=== PATIENT | female | born 1965 | race Caucasian/White ===

== ENCOUNTER 2021-12-24 08:40 | Outpatient (CLI) | payer OTHER, SELFPAY ==
[2021-12-24 14:24] LABS: Creatinine Urine 131.8 mg/dL
[2021-12-24 14:28] LABS: Microalbumin Creatinine Ratio 120 mg/g (0-30); Microalbumin Urine 17 mg/dL
[2021-12-24 14:32] LABS: Albumin* 4.4 g/dL (3.3-5.0)
[2021-12-24 14:33] LABS: Chloride* 105 mmol/L (96-114); Potassium* 4.6 mmol/L (3.6-5.1); Sodium* 140 mmol/L (135-149)
[2021-12-24 14:35] LABS: Alkaline Phosphatase* 69 U/L (40-150); Aspartate Amino Transferase* 27 U/L (12-35); Bilirubin Total* 0.2 mg/dL (0.1-1.5); Blood Urea Nitrogen* 18 mg/dL (7-30); Carbon Dioxide* 28 mmol/L (20-32); Creatinine* 0.6 mg/dL (0.5-1.5); Estimated Glomerular Filt Rate 105 ml/min; Glucose* 98 mg/dL (60-115); Lipase* 69 U/L (23-300); Total Protein* 7.1 g/dL (6.0-8.3)
[2021-12-24 14:36] LABS: Alanine Aminotransferase* 25 U/L (4-35); Calcium* 9.2 mg/dL (8.4-10.6); Cholesterol* 201 mg/dL (90-199); HDL Cholesterol* 50 mg/dL (>=50); LDL Cholesterol Calculated 127 mg/dL (<100); Triglycerides* 121 mg/dL (40-149)
[2021-12-24 15:18] LABS: Vitamin B12* 343 pg/mL (243-894)
[2021-12-24 17:04] LABS: TSH With Reflex to FT4* 0.248 uIU/mL (0.270-4.200)
[2021-12-25 23:11] LABS: Free T4 Free Thyroxine* 1.77 ng/dL (0.70-1.85)
== END 2021-12-24 08:41 | disposition home or self-care (01) ==
PROVIDERS: PCP Physician Assistant Medical; Visit Provider Physician Assistant Medical
DX: Z00.00 Encounter for general adult medical examination without abnormal findings (principal); R14.0 Abdominal distension (gaseous); E03.9 Hypothyroidism, unspecified; R73.03 Prediabetes; N93.9 Abnormal uterine and vaginal bleeding, unspecified
CPT/HCPCS: 80053; 80061; 82043; 82570; 82607; 83690; 84439; 84443; 87086; 87186

== ENCOUNTER 2021-12-29 08:00 | Outpatient (CLI) | payer OTHER, SELFPAY ==
--- NOTE | 2021-12-29 08:15 | CRLHL7_ITS ---
For Patients: As a result of the Century Cures Act, medical imaging exams and procedure reports are released immediately into your electronic medical record. You may view this report before your referring provider. If you have questions, please contact your health care provider. INDICATION: ABDOMINAL DISTENSION COMPARISON: none TECHNIQUE: Real time owens scale imaging and color Doppler analysis was performed of the right upper quadrant. FINDINGS: The patient`s liver is of normal size and has mildly coarsened echogenicity. There is a normal appearance of the hepatic IVC and proximal abdominal aorta. There is no evidence of ascites. The gallbladder is of normal size and there are hyperechoic and shadowing stones. The gallbladder wall measures 2 mm in thickness. The common bile duct is of normal size and measures 5 mm in diameter at the level of the angie hepatis. The pancreas appears normal. There is no evidence of a stone or hydronephrosis within the right kidney. The right kidney measures 11.2 cm in length. IMPRESSION: Gallstones are present. This is consistent with cholelithiasis. Mild hepatic steatosis. Remainder normal. Dictated by Sarthak Oliver MD @ 12/29/2021 8:42:54 AM (Electronically Signed)
== END 2021-12-29 08:01 | disposition home or self-care (01) ==
LOC: US 08:01
PROVIDERS: PCP Physician Assistant Medical; Visit Provider Physician Assistant Medical
DX: R14.0 Abdominal distension (gaseous) (principal); K80.80 Other cholelithiasis without obstruction; K76.0 Fatty (change of) liver, not elsewhere classified
CPT/HCPCS: 76705

== ENCOUNTER 2022-01-08 10:25 | Outpatient (CLI) | payer OTHER, SELFPAY | END 2022-01-08 10:26 | disposition home or self-care (01) | LOC: LKVREF 01-16 09:57 | PROVIDERS: PCP Physician Assistant Medical; Visit Provider Physician Assistant Medical | DX: R32 Unspecified urinary incontinence (principal) | CPT/HCPCS: 87086; 87186 ==

== ENCOUNTER 2022-01-20 15:30 | Outpatient (CLI) | payer OTHER, SELFPAY ==
--- NOTE | 2022-01-20 15:20 | CRLHL7_ITS ---
For Patients: As a result of the Century Cures Act, medical imaging exams and procedure reports are released immediately into your electronic medical record. You may view this report before your referring provider. If you have questions, please contact your health care provider. BILATERAL SCREENING MAMMOGRAM WITH COMPUTER-AIDED DETECTION AND TOMOSYNTHESIS TECHNIQUE: CC and MLO views were obtained. These mammographic images have been obtained using full-field digital technique. These mammographic images were interpreted with the benefit of computer-aided detection. Breast Tomosynthesis was used in this interpretation. COMPARISON FILM: 01/01/21, 12/20/19, 11/18/18. FINDINGS: There are scattered areas of fibroglandular density IMPRESSION: There is no radiographic evidence for malignancy. ASSESSMENT: BI-RADS Category 1: Negative RECOMMENDATION: Routine screening mammogram in 1 year. A lay language report of this examination will be provided to the patient. Sarthak Oliver M.D. Diagnostic Radiologist [email or web address] TERESA/Dictated by: Sarthak Oliver MD @ 01/21/2022 9:01:00 AM (Electronically Signed)
== END 2022-01-20 15:31 | disposition home or self-care (01) ==
PROVIDERS: PCP Physician Assistant Medical; Visit Provider Physician Assistant Medical
DX: Z12.31 Encounter for screening mammogram for malignant neoplasm of breast (principal)
CPT/HCPCS: 77063; 77067

== ENCOUNTER 2022-02-02 15:06 | Outpatient (CLI) | payer OTHER, SELFPAY | END 2022-02-02 15:07 | disposition home or self-care (01) | LOC: FRMREF 02-06 14:11 | PROVIDERS: PCP Physician Assistant Medical; Visit Provider Physician Assistant Medical | DX: N39.0 Urinary tract infection, site not specified (principal) | CPT/HCPCS: 87086; 87186 ==

== ENCOUNTER 2022-06-26 12:43 | Outpatient (CLI) | payer OTHER, SELFPAY | END 2022-06-26 12:44 | disposition home or self-care (01) | PROVIDERS: PCP Physician Assistant Medical; Visit Provider Physician Assistant Medical | DX: R30.0 Dysuria (principal); N39.0 Urinary tract infection, site not specified | CPT/HCPCS: 87086; 87186 ==

== ENCOUNTER 2022-10-20 09:49 | Emergency (ER) | payer OTHER, SELFPAY ==
[2022-10-20] VITALS (7 sets, daily range): BP systolic 123–134; BP diastolic 74–89; PULSE 85–109; RESP 16–24; TEMP 36.4; O2SAT 93–95; BMI 38.1
--- NOTE | 2022-10-20 10:15 | ED.NURSE ---
Pt O2 sats ~88% on RA. aware, 2L O2 NC placed on pt. Sats up to ~95% on 2L.
--- NOTE | 2022-10-20 10:21 | ED.FEVER ---
HPI - Fever General Date Seen: 10/20/22 Chief Complaint: Fever Stated Complaint: sore throat,cough,fever Time Seen by Provider: 10/20/22 09:53 Source: patient and family Mode of arrival: ambulatory Limitations: no limitations History of Present Illness HPI Narrative: Patient is a 57-year-old female who presents here for evaluation of a fever, they took at home approximately an hour and a half ago and got 101, done orally. She did take then 400 mg of ibuprofen, was trying to get into both urgent care yesterday, and the [facility] today, was unable to be seen. Decided at that point to come to the emergency room. She has been sick for approximately 1 week with the facial discomfort, nasal discharge sore throat the comes and goes during this time. She is able to swallow, no rashes, no real cough, does have a history of immunosuppression on drugs for this after she had corneal transplant in her right eye. Does have a history of both UTIs and also sinus infections. Generally feels crappy, but was going to go to see the [email or web address] is a movie today. Associated symptoms: myalgias, rhinorrhea, nasal congestion and sore throat Treatments prior to arrival fever: ibuprofen Related Data Home Medications Medication Instructions Recorded Confirmed omega-3 fatty acids 1,000 mg 1,000 mg PO QDAY 12/24/21 07/27/22 capsule prednisolone acetate 1 % eye 1 drp ophthalmic (eye) QID 12/24/21 07/27/22 drops,suspension gabapentin 300 mg capsule 300 mg PO QDAY 06/26/22 07/27/22 Meloxicam PO PRN 07/27/22 Multiple vitamin PO DAILY 07/27/22 latanoprost 0.005 % eye drops 1 drp ophthalmic (eye) BID 07/27/22 07/27/22 mycophenolate mofetil 500 mg tablet 500 mg PO BID 07/27/22 07/27/22 sodium chloride 5 % eye drops drp ophthalmic (eye) .6 x daily 07/27/22 07/27/22 tacrolimus 0.03 % topical ointment 1 applic topical DAILY 07/27/22 07/27/22 tacrolimus 0.1 % topical ointment 1 applic topical QHS 07/27/22 07/27/22 ubidecarenone-omega 3-vit E 25 1 cap PO DAILY 07/27/22 07/27/22 mg-150 (90-60) mg-200 unit capsule Previous Rx's Medication Instructions Recorded metformin 500 mg tablet,extended See Rx Instructions .Route 03/04/22 release 24 hr .COMPLEX #360 tabs levothyroxine 125 mcg tablet 125 mcg PO DAILY #90 tabs 05/12/22 benzonatate 100 mg capsule 100 mg PO QHS PRN cough #30 caps 07/27/22 amoxicillin 875 mg-potassium 1 tab PO BID #20 tabs 10/20/22 clavulanate 125 mg tablet Allergies Allergy/AdvReac Type Severity Reaction Status Date / Time No Known Drug Allergies Allergy Verified 07/27/22 10:52 Review of Systems Status of ROS Reports: 10 or more systems reviewed and unremarkable except as noted in History and below [facility] Medical History Dehydration ?E86.0 - Dehydration (ICD-10) Surgical History History of cornea transplant ?Z94.7 - Corneal transplant status (ICD-10) Family History Mother Arthritis Maternal Grandmother Colon cancer Family/Other Coronary artery disease Social History Narrative: Non-smoker. with adult children. Rare alcohol use. Denies recreational drug use. 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 Smoking Status: Never smoker Do you use any of these nicotine containing products: None Second hand tobacco smoke exposure: No How often do you have a drink containing alcohol: never How often do you have six or more drinks on one occasion: Never AUDIT-C Alcohol total score: 0 Non-prescribed substance use: denies use Little interest or pleasure in doing things: not at all Feeling down, depressed, or hopeless: not at all service: No Exam Narrative Exam Narrative: Patient is in no apparent distress, seen in room 6, alopecia is noted. Pupils are equal round reactive to light her TMs bilaterally are approximately 50% occluded with soft brown cerumen but otherwise normal, nasal mucosa engorged bilaterally, her frontal sinuses, maxillary sinuses transilluminate. Oropharynx is a little bit reddened but there is no tonsillar swelling or exudate noted. There is no significant lymphadenopathy anterior posterior chains, of her cervical region. Her neck is supple absence of meningismus is noted. Chest is good air entry bilaterally with no wheezing crackles noted heart sounds no clicks murmurs or gallops, her abdomen is soft, obese, no tenderness to palpation, no organomegaly, no CVA tenderness, she moves all extremities independently well is neurologically intact. Const Vital Signs, click to edit/add: Vital Signs - 24 hr 10/20/22 09:59 10/20/22 10:09 10/20/22 10:36 Temperature 97.5 F L 97.5 F L Pulse Rate Pulse Rate [Pulse Oximeter] 109 H Respiratory Rate 24 Blood Pressure Blood Pressure [Right Upper Arm] 134/89 Pulse Oximetry 93 94 Oxygen Delivery Method Room Air Room Air 10/20/22 10:39 10/20/22 10:41 10/20/22 10:41 Temperature Pulse Rate 98 Pulse Rate [Pulse Oximeter] 85 Respiratory Rate 16 Blood Pressure 123/74 Blood Pressure [Right Upper Arm] 124/82 123/74 Pulse Oximetry 95 95 Oxygen Delivery Method Room Air 10/20/22 10:42 10/20/22 10:45 Temperature Pulse Rate 102 H 99 Pulse Rate [Pulse Oximeter] Respiratory Rate Blood Pressure Blood Pressure [Right Upper Arm] Pulse Oximetry 95 93 Oxygen Delivery Method Course Course Hospital Course: All swabs and strep were negative, at this point we will discharge her home, clinically she has sinusitis, and Augmentin would be a great agent as it has good coverage. I have asked her to watch and monitor herself closely, including use of Tylenol ibuprofen. And to follow-up if any signs or symptoms of worsening. Vital Signs Vital signs: Initial Vital Signs Temperature 97.5 F L 10/20/22 09:59 Temperature Source Temporal Artery Scan 10/20/22 09:59 Pulse Rate 109 H 10/20/22 09:59 Pulse Rhythm Regular 10/20/22 09:59 Respiratory Rate 24 10/20/22 09:59 Blood Pressure 134/89 10/20/22 09:59 Blood Pressure Mean 104 10/20/22 09:59 Blood Pressure Position Supine 10/20/22 09:59 Pulse Oximetry 93 10/20/22 09:59 Oxygen Delivery Method Room Air 10/20/22 09:59 Vital Signs Temperature 97.5 F L 10/20/22 09:59 Pulse Rate 109 H 10/20/22 09:59 Respiratory Rate 24 10/20/22 09:59 Blood Pressure 134/89 10/20/22 09:59 Pulse Oximetry 93 10/20/22 09:59 Oxygen Delivery Method Room Air 10/20/22 09:59 Temperature 97.5 F L 10/20/22 10:36 Pulse Rate 99 10/20/22 10:45 Respiratory Rate 16 10/20/22 10:39 Blood Pressure 123/74 10/20/22 10:41 Pulse Oximetry 93 10/20/22 10:45 Oxygen Delivery Method Room Air 10/20/22 10:39 MDM - Fever MDM Narrative Medical decision making narrative: Life-threatening differential diagnosis is include meningitis, encephalitis, pneumonia, intra-abdominal infection, bacteremia, other differential diagnosis include but are not limited to viral upper respiratory tract infection, strep, urinary tract infection, skin infection, osteomyelitis, influenza, fungal infections, diskitis, epidural abscess, or fever of unknown origin. I discussed with her that I believe that she likely has sinusitis, but given her immunosuppressive history we will do a strep and along with the triple viral screen. Will give her some Tylenol, she seems nontoxic, I do believe we have the element of time here. Medical Records Attestation: I reviewed the patient's medical records. Lab Data Attestation: I reviewed the patient's lab results. Labs: Lab Results 10/20/22 Range/Units 10:33 SARS-CoV-2 (PCR) Negative SARS-CoV-2 (Negative) Influenza Type A (PCR) Negative PCR FLU A (Negative) Influenza Type B (PCR) Negative PCR FLU B (Negative) RSV (PCR) Negative PCR RSV (Negative) Group A Strep DNA NOT DETECTED (Not Detectd) Discharge Plan Discharge Clinical Impression: Fever, Sinusitis Patient Disposition: Home w/ Parent or Adult Condition: Stable Instructions: Fever in Adults (ED), Rhinosinusitis (DC) Additional Instructions: Home rest antibiotics as directed, monitor your fever, Tylenol ibuprofen as needed for this. Return here if any worsening signs and symptoms such as severe headache, neck pain, nausea vomiting, rashes, take antibiotics as directed. Activity Level: No Restrictions Prescriptions: New amoxicillin-pot clavulanate 875-125 mg tablet 1 tab PO BID Qty: 20 0RF No Action prednisolone acetate 1 % drops,suspension 1 drp ophthalmic (eye) QID omega-3 fatty acids 1,000 mg capsule 1,000 mg PO QDAY Meloxicam PO PRN Patient Comments: Patient is unsure of the doseage. Multiple vitamin PO DAILY mycophenolate mofetil 500 mg tablet 500 mg PO BID tacrolimus 0.03 % ointment 1 applic topical DAILY Rx Instructions: to use as directed in right eye tacrolimus 0.1 % ointment 1 applic topical QHS Rx Instructions: right eye ubidecarenone-omega 3-vit E 25-150-200 mg-mg-unit capsule 1 cap PO DAILY latanoprost 0.005 % drops 1 drp ophthalmic (eye) BID sodium chloride 5 % drops ophthalmic (eye) .6 x daily Patient Comments: [NO ORIGINAL SIG] benzonatate 100 mg capsule 100 mg PO QHS PRN (Reason: cough) Qty: 30 0RF gabapentin 300 mg capsule 300 mg PO QDAY Patient Comments: TAKE 1 CAPSULE BY MOUTH AT BEDTIME metformin 500 mg tablet extended release 24 hr See Rx Instructions .ROUTE .COMPLEX Qty: 360 3RF Dose Instruction: TAKE 4 TABLETS DAILY Rx Instructions: TAKE 4 TABLETS DAILY levothyroxine 125 mcg tablet 125 mcg PO DAILY Qty: 90 1RF Follow Up/Referrals: Martina Strickland PA-C [Primary Care Provider] - Stand Alone Forms: [facility] Info Instructions
[2022-10-20] MEDS: ACETAMINOPHEN 500 MG TABLET 1000 MG PO (10:28)
--- OUTSIDE RECORDS SUMMARY | 2022-10-20 10:33 | XMS_ITS | Continuity of Care Document ---
Author Name Unknown Organization [facility] Address [address] [facility] [address] [place] [address] Phone Care Team Providers Care Medical Administrative Technician Name Role Phone Joseph Trivedi DO Unavailable Unavailable Allergies, Adverse Reactions, Alerts Substance [...] [facility] , [address], [place], [address], [place] tel:[phone] [facility] , Corneal transplant monitor Chronic High Risk Meds (chief complaint) Unspecified complication of corneal transplant, right eyeUnspecifi ed pterygium of right eyeUnspecifi ed complication of corneal transplantOt her senior living (current) drug therapy 1 Farooq Ruiz. [facility] [address], [place], [address], [place]. tel:[phone] Referring Provider: Joseph Martin, [facility] [address], [place], [address]. tel:[phone] Office/Outpa tient Visit, Est [facility] , [address], [place], [address], [place] tel:[phone] [facility] , Corneal transplant monitor Chronic High Risk Meds (chief complaint) Unspecified pterygium of right eyeUnspecifi ed complication of corneal transplantOt her terminal operations manager (current) drug therapyUnspe cified complication of corneal transplant, right eye 1 Farooq Ruiz. [facility] [address], [place], [address], [place]. tel:[phone] Referring Provider: Joseph Martin, [facility] [address], [place], [address]. tel:[phone] Office/Outpa tient Visit, Est [facility] , [address], [place], [address], [place] tel:[phone] [facility] , Unspecified pterygium of right eyeUnspecifi ed complication of corneal transplantOt her terminal operations manager (current) drug therapy 0 Farooq Ruiz. [facility] [address], [place], [address], [place]. tel:[phone] Referring Provider: Joseph Martin, [facility] [address], [place], [address]. tel:[phone] Office/Outpa tient Visit, Est [facility] , [address], [place], [address], [place] tel:[phone] [facility] , Unspecified pterygium of right eyeUnspecifi ed complication of corneal transplantOt her senior living (current) drug therapy 0 Farooq Ruiz. [facility] [address], [place], [address], [place]. tel:[phone] Specialist: Amadeo King, [facility] [address] [place] [address] [address], [place], [address]. tel:[phone] ng Provider: Joseph Martin, [facility] [address], [place], [address]. tel:[phone] Office/Outpa tient Visit, Est [facility] , [address], [place], [address], [place] tel:[phone] [facility] , Unspecified pterygium of right eyeUnspecifi ed complication of corneal transplantOt her senior living (current) drug therapy 9 Farooq Ruiz. [facility] [address], [place], [address], [place]. tel:[phone] Specialist: Amadeo King, [facility] [address] [facility], [place], [address]. tel:[phone] ng Provider: Joseph Martin, [facility] [address], [place], [address]. tel:[phone] Office/Outpa tient Visit, New [facility] , [address], [place], [address], [place] tel:[phone] [facility] , Unspecified complication of corneal transplantUn specified pterygium of right eyeOther senior living (current) drug therapy 9 Farooq Ruiz. [facility] [address], [place], [address], [place]. tel:[phone] Referring Provider: Joseph Martin, [facility] [address], [place], [address]. tel:[phone] Family History Family Member Type Diagnosis Age At Onset Mother Problem (finding) [facility] Immunizations Vaccine Date Status Comments COVID-19 Pfizer administered Source: Otdean r Provider COVID-19 Pfizer administered Source: Othe r Provider Payers Payer name Insurance type Covered libertarian ID Authoriza tion(s) Cigna CI [id number] Social History Type Description Quantity Date Captured [...] For Referral Reason For Referral No Information Plan Of Treatment Date Type Action Status No Information History Of Present Illness Encounter [...] complication of corn eal transplant assessment 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 Patient Care Teams Name Effective Dates (start - stop) Status Members No Information
[2022-10-20 11:20] LABS: Strep A DNA Probe* NOT DETECTED (Not Detectd)
[2022-10-20 11:28] LABS: PCR FLU A Negative PCR FLU A (Negative); PCR FLU B Negative PCR FLU B (Negative); PCR RSV Negative PCR RSV (Negative)
[2022-10-20 11:51] LABS: SARS PCR* Negative SARS-CoV-2 (Negative)
== END 2022-10-20 12:03 | disposition home or self-care (01) ==
PROVIDERS: Emergency Provider Family Medicine; PCP Physician Assistant Medical
DX: R50.9 Fever, unspecified (principal); J32.9 Chronic sinusitis, unspecified
CPT/HCPCS: 87631; 87651; 99283; A9270

== ENCOUNTER 2022-12-04 09:12 | Outpatient (CLI) | payer OTHER, SELFPAY ==
--- OUTSIDE RECORDS SUMMARY | 2022-12-04 09:15 | XMS_ITS | Continuity of Care Document ---
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 [facility] [address], [place], [address], [place]. tel:[phone] Referring Provider: Joseph Martin, [facility] [address], [place], [address]. tel:[phone] Office/Outpa tient Visit, Est [facility] , [address], [place], [address], [place] tel:[phone] [facility] , Corneal transplant monitor Chronic High Risk Meds (chief complaint) Unspecified pterygium of right eyeUnspecifi ed complication of corneal transplantOt her terminal operator (current) drug therapyUnspe cified complication of corneal transplant, right eye 1 Farooq Ruiz. [facility] [address], [place], [address], [place]. tel:[phone] Referring Provider: Joseph Martin, [facility] [address], [place], [address]. tel:[phone] Office/Outpa tient Visit, Est [facility] , [address], [place], [address], [place] tel:[phone] [facility] , Unspecified pterygium of right eyeUnspecifi ed complication of corneal transplantOt her terminal operator (current) drug therapy 0 Farooq Ruiz. [facility] [address], [place], [address], [place]. tel:[phone] Referring Provider: Joseph Martin, [facility] [address], [place], [address]. tel:[phone] Office/Outpa tient Visit, Est [facility] , [address], [place], [address], [place] tel:[phone] [facility] , Unspecified pterygium of right eyeUnspecifi ed complication of corneal transplantOt her intermediate (current) drug therapy 0 Farooq Ruiz. [facility] [address], [place], [address], [place]. tel:[phone] Specialist: Amadeo King, [facility] [address] [place] [address] [address], [place], [address]. tel:[phone] ng Provider: Joseph Martin, [facility] [address], [place], [address]. tel:[phone] Office/Outpa tient Visit, Est [facility] , [address], [place], [address], [place] tel:[phone] [facility] , Unspecified pterygium of right eyeUnspecifi ed complication of corneal transplantOt her intermediate (current) drug therapy 9 Farooq Ruiz. [facility] [address], [place], [address], [place]. tel:[phone] Specialist: Amadeo King, [facility] [address] [facility] [address], [place], [address]. tel:[phone] ng Provider: Joseph Martin, [facility] [address], [place], [address]. tel:[phone] Office/Outpa tient Visit, New [facility] , [address], [place], [address], [place] tel:[phone] [facility] , Unspecified complication of corneal transplantUn specified pterygium of right eyeOther intermediate (current) drug therapy 9 Farooq Ruiz. [facility] [address], [place], [address], [place]. tel:[phone] Referring Provider: Joseph Martin, [facility] [address], [place], [address]. tel:[phone] Family History Family Member Type Diagnosis Age At Onset Mother Problem (finding) Arthritis Immunizations Vaccine Date Status Comments COVID-19 Pfizer administered Source: Otdean r Provider COVID-19 Pfizer administered Source: Othe r Provider Payers Payer name Insurance type Covered alliance party ID Authoriza tion(s) Cign[employer] CI [id number] Social History Type Description Quantity Date Captured [...] complication of corn eal transplant assessment Other intermediate (current) drug t herapy Mental Status Date Cognitive Assessment Orientation - [place] ed to time, place, person, situation. Patient Care Teams Name Effective Dates (start - stop) Status Members No Information
== END 2022-12-04 09:13 | disposition home or self-care (01) ==
PROVIDERS: PCP Physician Assistant Medical; Visit Provider Physician Assistant Medical
DX: Z00.00 Encounter for general adult medical examination without abnormal findings (principal); L03.90 Cellulitis, unspecified; E86.0 Dehydration; R73.03 Prediabetes; N39.0 Urinary tract infection, site not specified; Z13.6 Encounter for screening for cardiovascular disorders
CPT/HCPCS: 80053; 80061; 82043; 82570; 84443; 87086; 87186

== ENCOUNTER 2023-09-14 22:06 | Outpatient (REF) | payer OTHER, SELFPAY ==
--- OUTSIDE RECORDS SUMMARY | 2023-09-14 22:11 | XMS_ITS | Clinical Summary ---
Author Name Unknown Organization [facility] Address [place], [place] [address] Care Team Providers Care Hot Header Operator Name Role Phone Martina Strickland PA-C Primary Care Provider [phone] Allergies Active Allergy Reactions Criticality Noted Date Comments Lidocaine Other - Describe In Comment Field 06/29/2017 Received Lido with epi at dentist office,states being shaky was from epi. Medications Medication Sig Dispensed Refills Start Date End Date Status levothyroxine (SYNTHROID) 112 mcg tablet Take 112 mcg by mouth once daily. 3 06/14/2017 Active metFORMIN (GLUCOPHAGE XR) 500 mg Extended-Release tablet Take 1,000 mg by mouth 2 times daily with meals. Active medication order composer [place] oil 1000 mg daily Active UBIDECARENONE (COQ-10 ORAL) Take 10 mg by mouth once daily. Active MULTIVITAMIN (MULTIPLE VITAMINS ORAL) Take 1 tablet by mouth once daily. Active fluconazole (DIFLUCAN) 150 mg tablet Take 150 mg by mouth once daily. 0 04/04/2018 Active netarsudil (RHOPRESSA) 0.02 % drop Place 1 Drop into right eye at bedtime. 08/26/2018 Active prednisoLONE acetate 1% ophthalmic (ECONOPRED PLUS, PRED FORTE, OMNIPRED) suspension Place 1 Drop into the eye(s) 4 times daily. 5 mL 09/30/2018 Active Additional Information Patient taking differently:1 DropRight EyeQID, Reported on 04/17/2019 dorzolamide-timolo l (COSOPT) 2-0.5 % ophthalmic solution Place 1 Drop into the eye(s). 10/25/2018 Active sodium chloride (ADSORBONAC) 2 % ophthalmic solution Place 1-2 Drops into the eye(s). 01/07/2019 Active omega-3 fatty acids (FISH OIL CONCENTRATE) cap Take 1,000 mg by mouth once daily. Active tacrolimus 0.03% (PROTOPIC) 0.03 % ointment Place 1 Drop into right eye at bedtime. Active mycophenolate (CELLCEPT) 250 mg capsule Take 4 capsules by mouth every 12 hours. 240 capsule 04/18/2019 Active trimethoprim-sulfa methoxazole, 80-400 mg, (BACTRIM SS; SEPTRA SS) tab Take 1 tablet by mouth once daily. 30 tablet 04/18/2019 Active omeprazole (PRILOSEC) 20 mg Delayed-Release capsule Take 1 capsule by mouth once daily before a meal. 30 capsule 1 04/18/2019 Active predniSONE (DELTASONE) 20 mg tablet Take 3 tablets by mouth once daily with a meal. 90 tablet 1 04/18/2019 Active tacrolimus (PROGRAF) 1 mg capsule Take 1 capsule by mouth once daily in the evening. 30 capsule 1 04/18/2019 Active ofloxacin 0.3 % ophthalmic (OCUFLOX) 0.3 % ophthalmic solution Place 1 Drop in surgical eye 4 times daily. 5 mL 04/18/2019 Active valGANciclovir (VALCYTE) 450 mg tablet Take 1 tablet by mouth once daily with a meal. 30 tablet 1 04/18/2019 Active CYCLOSPORINE 1% IN ARTIFICAL TEARS ([facility] AMB MIX) Place 1 Drop into right eye 4 times daily. Refrigerate. Expires: . 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 Temperature 35.7 ??C (96.3 ??F) 04/18/2019 12:[address] Respiratory Rate 16 04/18/2019 2:56 PM 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 Oxygen Saturation 94% 04/18/2019 2:56 PM 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 Inhaled Oxygen Concentration - - Weight 110.8 kg (244 lb 3 oz) 04/17/2019 12:09 P M 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 Height 161 cm (5' 3.39) 04/17/2019 12:09 PM 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 Body Mass Index 42.73 04/17/2019 12:09 PM 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 Plan of Treatment Health Maintenance Due Date Last Done Comments Tdap 1976 Depression screening for age 12+ 1977 HIV for age 15-65 1980 BMI (ht and wt on same day) for age 18+ 07/22/1983 Hepatitis C screening for age 18-79 07/22/1983 Tetanus booster 1985 Colonoscopy through age 75 2010 Lipids for age 45-75 2010 Mammogram for age 45-75 2010 Zoster (shingles) series for age 50+ (1 of 2) 07/22/2015 COVID-19 vaccine series (2022-24 season) 2023 Pap test for age 21-65 11/09/2023 , 11/08/2020, 11/26/2017, Additional history exists Influenza for age 50-64 01/09/2024 Pneumococcal series for age 6-64 Aged Out No longer eligible based on patient's age to complete this topic Medical Devices Implanted Type Area Cartridge Loading Operator Device Identifier Shelf Expiration Date Model / Serial / Lot Cornea Ak Licarolyn Eye - [id number] Implanted:Qty: 1 on 07/05/2017 by Ronni Horton MD at [facility] Right: Eye [facility] Eye Bank 07/09/2017 CORNEA#18- [id number]-OD-C / [id number] -C / Allograft 3.5x3.5cm F Amniograft - [id number] Implanted:Qty: 1 on 07/05/2017 by Rogelio Galvan MD at [facility] Right: Eye [employer] 02/02/2019 [id number]# / [id number] / Description:[id number] SERIAL NUMBER Plate Glaucoma Valve Flex Ahmed Silcn - [id number] Implanted:Qty: 1 on 09/30/2018 by Claudia Marcus MD at [facility] Right: Eye [employer] 08/14/2020 FP7# / [id number] / [id number] Cornea 9.0mm+ Visiongraft W/O Scleral Rim Half - [id number] Implanted:Qty: 1 on 09/30/2018 by Claudia Marucs MD at [facility] Right: Eye [employer] 08/31/2020 FP661BT-20 # / [id number] / Description:DIN: [id number] FIN (P): [id number] Cornea [place] [facility] Eye - [id number] Os-C Implanted:Qty: 1 on 04/18/2019 by Amadeo King MD at [facility] Right: Eye [facility] Eye Bank 04/26/2019 CORNEA# / OS-C / Cornea [place] [facility] Eye - [id number] Od-C Implanted:Qty: 1 on 04/18/2019 by Amadeo King MD at [facility] Right: Eye [facility] Eye Bank 04/26/2019 CORNEA# / OD-C / Iol [place] +21 Tecnis [id number] - [id number] Implanted:Qty: 1 on 04/18/2019 by Amadeo King MD at [facility] Right: Eye [employer] 01/26/2024 [id number] 21.0# / [id number] / Allograft 3.5x3.5cm F Amniograft - [id number] Implanted:Qty: 1 on 04/18/2019 by Amadeo King MD at [facility] Right: Eye [employer] 11/07/2020 [id number]# / [id number] / Procedures Procedure Name Priority Date/Time Associated Diagnosis Comments COUNTY ADVISER THIN PREP PAP SCREEN IMAGED Routine 11/08/2020 1:30 PM CDT from Last 3 Months or Most Recently Relevant to Health Maintenance Results * COUNTY ADVISER THIN PREP PAP SCREEN IMAGED (11/08/2020 1:30 PM CDT) Case Report Gynecologic Cytology Report ? Case: [id number] ? Authorizing Provider: ??Martina Strickland PA-C ?Collected: ? 11/08/2020 1330 ? Ordering Location: ? [facility] ?Received: ?11/11/2020 1612 ? First Screen: ?Isabella Garcia ? Specimen: ?COUNTY ADVISER ThinPrep Vial Screening, Cervical/Vaginal ? 11/21/2020 6:20 PM CDT [facility] [employer] [facility] INTERPRETATION/ RESULT NEGATIVE FOR INTRAEPITHELIAL LESION OR MALIGNANCY (NIL) (none) 11/21/2020 6:20 PM CDT [facility] IMEN ADEQUACY Satisfactory for evaluation Endocervical component present 11/21/2020 6:20 PM CDT [facility] [employer] LABORAT[facility] ENTRAL LABORATORY HPV REQUEST HPV and PAP 11/21/2020 6:20 PM CDT [facility] Date of LMP 11/21/2020 6:20 PM CDT [facility] Comment:unknown Last Pap Date 11/26/2017 11/21/2020 6:20 PM CDT [facility] Last Pap Result NIL 6:20 PM CDT [facility] Additional Information 11/21/2020 6:20 PM CDT [facility] Comment: Interpreted at [facility] - [address], [place] [address] Automated Review Successful 11/21/2020 6:20 PM CDT [facility] Comment:Specimen processed s uccessfully by automated hospice community liaison device, AnchantoPrep Imaging System, [employer] ANCILLARY TESTING COUNTY ADVISER HPV Ordered, Please see separate report 11/21/2020 6:20 PM CDT [facility] Note The pap test is a screening technique, not a diagnostic procedure. It is used primarily to screen for squamous cancers and precursor lesions. Published studies have shown that it is subject to both false negative and false positive results. The pap test should not be used as the sole means to diagnose or exclude pre-malignant and malignant lesions. 11/21/2020 6:20 PM CDT [facility] Other (Cervical/Vagina l) 11/08/2020 1:30 PM CDT 11/11/2020 4:12 PM CDT Martina Strickland PA-C PATHOLOGY/CYTOLOGY [facility] [address] [place] [address], [place] from Last 3 Months or Most Recently Relevant to Health Maintenance Advance Directives * Full Code (Latest Code Status on File) Date Activated Date Inactivated Comments 04/18/2019 6:35 AM 04/18/2019 5:30 PM * Full Code Date Activated Date Inactivated Comments 09/30/2018 11:19 AM 10/05/2018 2:28 AM * Full Code Date Activated Date Inactivated Comments 09/30/2018 11:19 AM 09/30/2018 11:19 AM * Full Code Date Activated Date Inactivated Comments 07/05/2017 6:36 AM 07/05/2017 3:03 PM Care Teams Hot Header Operator Relationship Specialty Start Date End Date Martina Strickland PA-C [address] [place] [address] PCP - General Emergency Medicine 04/17/19
--- OUTSIDE RECORDS SUMMARY | 2023-09-14 22:11 | XMS_ITS | Referral Summary ---
Author Name Unknown Organization [facility] Address [address] [place] [address] Care Team Providers Care Education Analyst Name Role Phone Ailin Zavala MD Unavailable [phone] Martina Strickland PA-C Primary Care Provider Amadeo King MD Unavailable [phone] Joseph Trivedi MD Unavailable [phone] Rene Grant MD Unavailable [phone] Encounters Date Type Department Care Team Description 09/14/[address] [phone] Amadeo King MD Call Back 09/09/2023 MyC Medical Advice [address] [phone] [facility] 09/07/[address] [phone] Amadeo King MD Appointment (2-3 week follow up) 08/30/2023 Travel 08/30/2023 2:45 PM CDT Office Visit [address] [place] [address] Amadeo King MD Corneal ulcer of right eye (Primary Dx); 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; Post corneal transplant 08/23/2023 Travel 08/23/2023 3:00 PM CDT Office Visit [address] [phone] Rene Grant MD Hou, Joshua Honghan, MD Corneal ulcer of right eye (Primary Dx); 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; Persistent epithelial defect of right cornea; 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 08/22/2023 Travel 08/09/2023 Travel 08/09/2023 3:00 PM CDT Office Visit [address] [phone] Rene Grant MD Corneal ulcer of right eye (Primary Dx); 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 07/26/2023 Travel 07/26/2023 2:45 PM CDT Office Visit [address] [phone] Rene Grant MD Corneal ulcer of right eye (Primary Dx); 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; Dry eye syndrome of both eyes 2023 Travel 2023 3:00 PM CDT Office Visit [address] [phone] Rene Grant MD Corneal ulcer of right eye (Primary Dx); Persistent epithelial defect of right cornea; 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; Dry eye syndrome of both eyes 07/16/[address] [phone] Rene Grant MD Question (Ointment) 07/14/2023 Travel 07/14/2023 2:45 PM LEADING FIREFIGHTER Office Visit [address] [phone] Rene Grant MD Corneal ulcer of right eye (Primary Dx); Persistent epithelial defect of right cornea 07/10/[address] [phone] Amadeo Winston MD Medication Refill 07/09/2023 Travel 07/09/2023 3:00 PM LEADING FIREFIGHTER Office Visit [address] [phone] Rene Grant MD Corneal ulcer of right eye (Primary Dx); History of corneal transplant - Right Eye; 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 - [place] [phone] [facility] [address] [place] [phone] Rene Grant MD Symptoms (White spot on right cornea) from Last 3 Months Allergies Active Allergy Reactions Criticality Noted Date Comments Lidocaine Other (See Comments) 07/22/2011 can Other reaction(s): Get the [employer] Medications Medication Sig Dispensed Refills Start Date End Date Status metFORMIN (GLUCOPHAGE-XR) 500 MG 24 hr tablet Take 1,000 mg by mouth 2 times daily Active levothyroxine (SYNTHROID/LEVOTH ROID) 125 MCG tablet Take 125 mcg by mouth daily Active sodium chloride (RENA 128) 5 % ophthalmic solutionIndicatio ns: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,Post corneal transplant,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,[place]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, right eye Place 1 drop into the right eye every 2 hours 30 mL 4 10/22/2021 Active Additional Information Patient taking differently:1 drop Right Eye4 TIMES DAILY, Reported on 12/01/2022 meloxicam (MOBIC) 15 MG tablet Take 15 mg by mouth daily 12/16/2021 Active latanoprost (XALATAN) 0.005 % ophthalmic solutionIndicatio ns:Post corneal transplant Place 1 drop into the right eye At Bedtime 2.5 mL 11 12/02/2022 Active prednisoLONE acetate (PRED FORTE) 1 % ophthalmic suspensionIndicat ions:Post corneal transplant Place 1-2 drops into the right eye 4 times daily 15 mL 12/02/2022 Active prednisoLONE acetate (PRED FORTE) 1 % ophthalmic suspensionIndicat ions:Post corneal transplant,Cornea l transplant rejection, right eye Place 1-2 drops into the right eye 4 times daily 15 mL 11 02/19/2023 Active mycophenolate (GENERIC EQUIVALENT) 500 MG tabletIndications :History of corneal transplant,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 Take 1 tablet (500 mg) by mouth 2 times daily 180 tablet 06/04/2023 Active mycophenolate (GENERIC EQUIVALENT) 500 MG tabletIndications :Corneal ulcer of right eye,History of corneal transplant Take 1 tablet (500 mg) by mouth 2 times daily for 180 days 180 tablet 1 07/05/2023 01/01/20 24 Active latanoprost (XALATAN) 0.005 % ophthalmic solutionIndicatio ns: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 INSTILL 1 DROP IN RIGHT EYE DAILY 2.5 mL 2 07/16/2023 Active moxifloxacin (VIGAMOX) 0.5 % ophthalmic solutionIndicatio ns:Corneal ulcer of right eye Place 1 drop into the right eye 2 times daily 3 mL 11 08/23/2023 Active sodium chloride (RENA 128) 5 % ophthalmic ointmentIndicatio ns:Post corneal transplant Place 1 Application (0.5 g) into the right eye daily 3.5 g 11 12/02/2022 08/23/19 24 Discontinued( Therapy completed (No AVS)) vancomycin (VANCOCIN) 25 mg/mL in hypromellose 0.3% cmpd ophthalmic solutionIndicatio ns:Central corneal ulcer of right eye Place 1 drop into the right eye every hour 10 mL 3 06/30/2023 08/23/19 24 Discontinued( Therapy completed (No AVS)) moxifloxacin (VIGAMOX) 0.5 % ophthalmic solutionIndicatio ns:Corneal ulcer of right eye Place 1 drop into the right eye 3 times daily 3 mL 11 07/26/2023 08/23/19 24 Discontinued( Reorder (No AVS)) Active Problems Problem Noted Date Diagnosed Date Post corneal transplant 06/12/2020 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 021 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 2018 Pseudophakia of right eye 09/28/2018 CARDIOVASCULAR SCREENING; LDL GOAL LESS THAN 160 07/28/2011 Hypothyroidism 07/28/2011 Social History Tobacco Use Types Packs/Day Years Used Date Smoking Tobacco: Never Smokeless Tobacco: Never Alcohol Use Standard Drinks/Week Comments No 0 (1 standard drink = 0.6 oz pur e alcohol) PHQ-2 Answer Date Recorded PHQ-2 Score 0 08/30/2023 Adolescent Education Answer Date Record ed Getting School Help Needed Not on file 02/05 Sex and Gender Information Value Date Recorded Sex Assigned at Female 2019 10:10 AM CDT Gender Identity Female 2019 10:10 AM CDT Sexual Orientation Straight 2019 10 :10 AM CDT Last Filed Vital Signs Vital Sign Reading Time Taken Comments Blood Pressure 112/66 07/27/2011 8:47 AM CDT Pulse 68 07/27/2011 8:47 AM CDT Temperature 36.9 ??C (98.4 ??F) 07/27/2011 8:47 AM CD T Respiratory Rate 17 07/22/2011 7:41 AM CDT Oxygen Saturation 100% 07/22/2011 9:20 AM CDT Inhaled Oxygen Concentration - - Weight 104.8 kg (231 lb 1.6 oz) 07/27/2011 8:47 AM CDT Height 160 cm (5' 3) 07/27/2011 8:47 AM CDT Body Mass Index 40.94 07/27/2011 8:47 AM CDT Plan of Treatment Upcoming Encounters Date Type Department Care Team (Late st Contact Info) Description 09/20/2023 2:45 PM CDT Office Visit [facility] [place] [phone] [facility] [address] [place] [phone] Amadeo King MD [address] [facility] [address] [place], [place] [address] 12/07/2023 3:10 PM CDT Office Visit 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 SLIT LAMP PHOTOS OD (RIGHT EYE) Routine 07/26/2023 3:53 PM CDT Corneal ulcer of right eye AMNIOTIC MEMBRANE NON SUTURE OD Routine 07/14/2023 10:10 PM LEADING FIREFIGHTER 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 ULTRASOUND B-SCAN OD (RIGHT EYE) Routine 07/05/2023 2:05 PM LEADING FIREFIGHTER Corneal ulcer of right eye SLIT LAMP PHOTOS OD (RIGHT EYE) Routine 07/05/2023 2:05 PM LEADING FIREFIGHTER Corneal ulcer of right eye ULTRASOUND B-SCAN OD (RIGHT EYE) Routine 07/02/2023 4:01 PM LEADING FIREFIGHTER Central corneal ulcer of right eye CORNEAL CULTURE OD (RIGHT EYE) Routine 06/30/2023 11:22 AM LEADING FIREFIGHTER Central corneal ulcer of right eye SLIT LAMP PHOTOS OD (RIGHT EYE) Routine 06/30/2023 11:22 AM LEADING FIREFIGHTER Central corneal ulcer of right eye GRAM STAIN Routine 06/30/2023 11:00 AM LEADING FIREFIGHTER Central corneal ulcer of right eye AEROBIC BACTERIAL CULTURE ROUTINE Routine 06/30/2023 11:00 AM LEADING FIREFIGHTER Central corneal ulcer of right eye AMOEBA CULTURE Routine 06/30/2023 11:00 AM LEADING FIREFIGHTER Central corneal ulcer of right eye FUNGAL OR YEAST CULTURE ROUTINE Routine 06/30/2023 11:00 AM LEADING FIREFIGHTER Central corneal ulcer of right eye ANAEROBIC BACTERIAL CULTURE ROUTINE Routine 06/30/2023 11:00 AM LEADING FIREFIGHTER Central corneal ulcer of right eye TAYLOR PREP Routine 06/30/2023 11:00 AM LEADING FIREFIGHTER Central corneal ulcer of right eye BASIC METABOLIC PANEL STAT 07/22/2011 8:00 AM CDT TSH STAT 07/22/2011 8:00 AM CDT HCL PAP SMEAR Routine 10/02/1998 1:18 PM CDT Gynecologic Examination from Last 3 Months or Most Recently Relevant to Health Maintenance Results * Punctal Closure, Plugs (08/23/2023 4:31 PM CDT) Narrative Amadeo King MD - 08/23/2023 4:31 PM CDT Sign in/Time Out: Correct patient, Correct procedure, Correct site . Preprocedure Medication: Proparacaine 2% solution . Punctal Plug Insertion #1 Brand: SuperFLex 0.9 . Location: Right lower . Ref #: [id number]. Lot #: [id number] . Punctal Plug Insertion #4 Plan: Monitor, Adjust medications . Attending assisted by: Fellow . Pre-Procedure Pain: 0 . Post-Procedure Pain: 0 . Sign Out: Patient counseled on signs and symptoms for which to call and/or return to clinic, Patient tolerated procedure well with no complications . Notes Attending Physician Attestation: ??Complete documentation of historical and exam elements from today's encounter can be found in the full encounter summary report (not reduplicated in this progress note). ??I personally obtained the chief complaint(s) and history of present illness. ??I confirmed and edited as necessary the review of systems, past medical/surgical history, family history, social history, and examination findings as documented by others; and I examined the patient myself. ??I personally reviewed the relevant tests, images, and reports as documented above. ??I formulated and edited as necessary the assessment and plan and discussed the findings and management plan with the patient and family. I was present for the entire procedure. ??- Amadeo King MD Amadeo King MD OPHTHALMOLOGY * Slit Lamp Photos OD (right eye) (07/26/2023 3:53 PM CDT) Only the most recent of3 resultswithin the time period is included. Narrative Chanbour, Wassef, MD - 07/26/2023 3:53 PM CDT Performed by: rp . Patient cooperation: Reliable . Reliability of the test: Good . Test Findings: Abnormal . Plan: Monitor . Interval: Same . Rene Grant MD OPHTHALMOLOGY * Amniotic Membrane Non Suture OD (07/14/2023 10:10 PM LEADING FIREFIGHTER) Rene Saravia MD - 07/14/2023 10:10 PM LEADING FIREFIGHTER Time out performed at: 3:21 PM . Preprocedure Medication: Proparacaine 2% solution . Plan: Monitor . Attending assisted by: Fellow . Notes Estuardo hart 2025-04-05 [id number] Cydney Madrid MD OPHTHALMOLOGY * Ultrasound B-scan OD (right eye) (07/05/2023 2:05 PM LEADING FIREFIGHTER) Only the most recent of2 resultswithin the time period is included. Rene Saravia MD - 07/05/2023 2:05 PM LEADING FIREFIGHTER Patient cooperation: Reliable . Reliability of the test: Good . Test Findings: Normal . Interpretation: Normal . Interval: Same . Notes Vitreous floaters no endophthalmitis Rene Grant MD OPHTHALMOLOGY * Corneal Culture OD (right eye) (06/30/2023 11:22 AM LEADING FIREFIGHTER) Rene Saravia MD - 06/30/2023 11:22 AM LEADING FIREFIGHTER Sign in/Time Out: Sign in communication completed, Correct patient, Correct medication, Correct procedure, Correct site . Anesthesia: Topical 4% lidocaine on cotton swabs . Instrument used: Sterile spatula . Home going prescriptions: Patient has drops at home . Plan: Monitor . Pre-Procedure Pain: 0 . Post-Procedure Pain: 0 . Sign Out: Sign out discussion completed, Patient counseled on signs and symptoms for which to call and/or return to clinic, Patient tolerated procedure well with no complications . Rene Grant MD OPHTHALMOLOGY * (ABNORMAL) Tissue Aerobic Bacterial Culture Routine Without Gram Stain (06/30/2023 11:00 AM LEADING FIREFIGHTER) Culture 15-50 CFU Granulicatella adiacens(A) BHAVIN 07/04/2023 10:10 AM LEADING FIREFIGHTER [facility] Tissue STRUCTURE OF CORNEA OF RIGHT EYE / Unknown Non-blood Collection / Unknown 06/30/2023 11:00 AM LEADING FIREFIGHTER 06/30/2023 12:41 PM LEADING FIREFIGHTER Narrative Organism Antibiotic Method Susceptibility Granulicatella adiacens Ampicillin BHAVIN <=0.06 ug/mL: Susceptible Granulicatella adiacens Penicillin BHAVIN 0.5 ug/mL: Intermediate Granulicatella adiacens Clindamycin BHAVIN 0.25 ug/mL: Susceptible Granulicatella adiacens Erythromycin BHAVIN 0.12 ug/mL: Susceptible Granulicatella adiacens Cefotaxime BHAVIN >2 ug/mL: Resistant Granulicatella adiacens Ceftriaxone BHAVIN 2 ug/mL: Intermediate Granulicatella adiacens Vancomycin BHAVIN 0.5 ug/mL: Susceptible Granulicatella adiacens Meropenem BHAVIN 0.12 ug/mL: Susceptible Rene Grant MD LAB - MICRO GENERAL ORDERABLES [facility] Lab [address] [facility], [address] [phone] [phone] * Fungus Culture, non-blood (06/30/2023 11:00 AM LEADING FIREFIGHTER) Culture No Growth BHAVIN 07/28/2023 8:33 AM CDT [facility] Tissue STRUCTURE OF CORNEA OF RIGHT EYE / Unknown Non-blood Collection / Unknown 06/30/2023 11:00 AM LEADING FIREFIGHTER 06/30/2023 12:41 PM LEADING FIREFIGHTER Rene Grant MD LAB - MICRO GENERAL ORDERABLES [facility] [employer] [facility] Inf. Diseases Di[facility] Lab [address] [facility], [address] [phone] * Parasite Culture (06/30/2023 11:00 AM LEADING FIREFIGHTER) Culture Negative for Amoebae after 10 days of incubation BHAVIN 07/10/2023 7:26 AM LEADING FIREFIGHTER [facility] Direct Stain Negative for Amoebae 07/10/2023 7:26 AM LEADING FIREFIGHTER [facility] Comment:Results reviewed by Fabricio Monterroso, Ph.D., Manager Recovery Community Health Counselor. 06/30/23 Tissue STRUCTURE OF CORNEA OF RIGHT EYE / Unknown Non-blood Collection / Unknown 06/30/2023 11:00 AM LEADING FIREFIGHTER 06/30/2023 12:42 PM LEADING FIREFIGHTER Rene Grant MD LAB - MICRO GENERAL ORDERABLES Performing Organization Address City/[facility]/ZIP Co de Phone Number [facility] Inf. Diseases Di[facility]. Lab [address] [facility], [address] [address], [facility] [phone] * Taylor prep (06/30/2023 11:00 AM LEADING FIREFIGHTER) TAYLOR Preparation No fungal elements seen 06/30/2023 2:04 PM LEADING FIREFIGHTER [facility] TAYLOR Preparation Reference Range: No fungal elements seen. 06/30/2023 2:04 PM LEADING FIREFIGHTER [facility] Tissue STRUCTURE OF CORNEA OF RIGHT EYE / Unknown Non-blood Collection / Unknown 06/30/2023 11:00 AM LEADING FIREFIGHTER 06/30/2023 12:41 PM LEADING FIREFIGHTER Rene Grant MD LAB - MICRO GENERAL ORDERABLES [facility] Inf. Diseases [facility] Lab [address] [facility], [address] [address], [facility] [phone] * (ABNORMAL) Gram stain (06/30/2023 11:00 AM LEADING FIREFIGHTER) Gram Stain Result 4+ Gram positive cocci(A) 06/30/2023 2:09 PM LEADING FIREFIGHTER [facility] Gram Stain Result 4+ Gram negative bacilli(A) 06/30/2023 2:09 PM LEADING FIREFIGHTER [facility] Gram Stain Result 2+ Gram positive bacilli(A) 06/30/2023 2:09 PM LEADING FIREFIGHTER [facility] Gram Stain Result 4+ WBC seen(A) 06/30/2023 2:09 PM LEADING FIREFIGHTER [facility] Comment:Predominantly PMNs Tissue STRUCTURE OF CORNEA OF RIGHT EYE / Unknown Non-blood Collection / Unknown 06/30/2023 11:00 AM LEADING FIREFIGHTER 06/30/2023 12:42 PM LEADING FIREFIGHTER Narrative [facility] - 06/30/2023 2:09 PM LEADING FIREFIGHTER Rene Grant MD LAB - MICRO GENERAL ORDERABLES Performing Organization Address City/[facility]/ZIP Co de Phone Number [facility]. [facility] [address] [facility], [address] [address], [facility] [phone] * Anaerobic bacterial culture (06/30/2023 11:00 AM LEADING FIREFIGHTER) Culture No anaerobic organisms isolated BHAVIN 07/07/2023 10:49 AM LEADING FIREFIGHTER [facility] Tissue STRUCTURE OF CORNEA OF RIGHT EYE / Unknown Non-blood Collection / Unknown 06/30/2023 11:00 AM LEADING FIREFIGHTER 06/30/2023 12:42 PM LEADING FIREFIGHTER Rene Grant MD LAB - MICRO GENERAL ORDERABLES Performing Organization Address [facility] de Phone Number [facility] [employer] Inf. Diseases Di[facility]. Lab [address] [facility], [address] [address], [facility] [phone] * (ABNORMAL) TSH (07/22/2011 8:00 AM CDT) TSH 14.50(H) 0.4 - 5.0 mU/L [facility] Blood specimen (specimen) 07/22/2011 8:00 AM CDT 07/22/2011 8:14 AM CDT Yesenia Gomez MD LAB - BLOOD O RDERABLES [facility] * Basic metabolic panel (07/22/2011 8:00 AM CDT) Sodium 138 133 - 144 mmol/L [facility] Potassium 4.2 3.4 - 5.3 mmol/L [facility] Chloride 107 94 - 109 mmol/L [facility] Carbon Dioxide 23 20 - 32 mmol/L [facility] Anion Gap 9 6 - 17 mmol/L [facility] Glucose 94 60 - 99 mg/dL [facility] Urea Nitrogen 14 5 - 24 mg/dL [facility] Creatinine 0.68 0.52 - 1.04 mg/dL [facility] GFR Estimate >90 >60 mL/min/1.7 m2 [facility] GFR Estimate If Black >90 >60 mL/min/1.7 m2 [facility] Calcium 9.1 8.5 - 10.4 mg/dL [facility] Blood specimen (specimen) 07/22/2011 8:00 AM CDT 07/22/2011 8:14 AM CDT Yesenia Gomez MD LAB - BLOOD O RDERABLES Performing Organization Address [facility]/ZIP Co de Phone Number [facility] * PAP SMEAR (10/02/1998 1:18 PM CDT) Unlabelled DNR [facility] Biopsy Sent DNR [facility] Source VAG,CERV,E NDOCERV [facility] LMP POST [facility] PARA 3 [facility] 2 [facility] Clinical History DNR [facility] Therapy DNR [facility] Last Pap Diagnosis WITHIN NORMAL LIMITS [facility] PAP Date [id number] [facility] Specimen # DNR [facility] Tissue DNR [facility] Tissue Date DNR [facility] Statement of Adequacy [facility] Comment: SATISFACTORY FOR INTERPRETATION POST MENOPAUSAL PATIENT. ??NO ENDOCERVICAL CELLS SEEN. General Categorization DNR [facility] Descriptive Diagnosis [facility] Comment: WITHIN NORMAL LIMITS ATROPHIC CELL PATTERN Recommendations DNR [facility] DNR 114,,,,,, [facility] DNR DNR [facility] DNR DNR [facility] DNR DNR [facility] . [facility] Comment: ?PAP SMEARS ARE SUBJECT TO BOTH FALSE NEGATIVE AND FALSE ? POSITIVE RESULTS EVIDENCED BY DATA PUBLISHED IN THE ? MEDICAL LITERATURE. ??YOUR PATIENT'S RESULT SHOULD BE ? INTERPRETED IN THIS CONTEXT, TOGETHER WITH THE PATIENT'S ? HISTORY AND CLINICAL FINDINGS. TESTING LOCATION ? [facility] ? [address] [facility]. [id number] ? PHONE NUMBERS FOR CYTOLOGY INQUIRES, INCLUDING SLIDE REQUESTS ? EXT. [phone] ?? EXT. [phone] 09/30/1998 Mary Morales MD LABORATORY Performing Organization Address City/State/ZIP Co ks Phone Number [facility] from Last 3 Months or Most Recently Relevant to Health Maintenance Care Teams Education Analyst Relationship Specialty Start Date End Date Martina Strickland PA-C PCP - General Physician Manager Recovery 07/19/19 Ailin Zavala MD Internal Medicine 07/28/11 Amadeo King MD [address] [place] [address] Ophthalmology 12/22/19 Joseph Trivedi MD [facility] [address] [address] Rheumatology 05/21/20 Rene Grant MD [address] [place] [address] Assigned Surgical Provider 09/12/22
--- OUTSIDE RECORDS SUMMARY | 2023-09-14 22:11 | XMS_ITS | Continuity of Care Document ---
Author Name Unknown Organization [facility] Address [address] [place] [address] Phone Care Team Providers Care Compliance Monitor Name Role Phone Joseph Trivedi DO Unavailable [...] [facility] , [address], [place], [address], [place] tel:[phone] [facility] , Corneal transplant monitor Chronic High Risk Meds (chief complaint) Unspecified complication of corneal transplant, right eyeUnspecifi ed pterygium of right eyeUnspecifi ed complication of corneal transplantOt her skilled nursing (current) drug therapy 1 Farooq Ruiz. [facility] [address], [place], [address], [place]. tel:[phone] Referring Provider: Joseph Martin, [facility] [address], [place], [address]. tel:[phone] Office/Outpa tient Visit, Est [facility] , [address], [place], [address], [place] tel:[phone] [facility] , Corneal transplant monitor Chronic High Risk Meds (chief complaint) Unspecified pterygium of right eyeUnspecifi ed complication of corneal transplantOt her skilled nursing (current) drug therapyUnspe cified complication of corneal transplant, right eye 1 Farooq Ruiz. [facility] [address], [place], [address], [place]. tel:[phone] Referring Provider: Joseph Martin, [facility] [address], [place], [address]. tel:[phone] Office/Outpa tient Visit, Est [facility] , [address], [place], [address], [place] tel:[phone] [facility] , Unspecified pterygium of right eyeUnspecifi ed complication of corneal transplantOt her skilled nursing (current) drug therapy 0 Farooq Ruiz. [facility] [address], [place], [address], [place]. tel:[phone] Referring Provider: Joseph Martin, [facility] [address], [place], [address]. tel:[phone] Office/Outpa tient Visit, Est [facility] , [address], [place], [address], [place] tel:[phone] [facility] , Unspecified pterygium of right eyeUnspecifi ed complication of corneal transplantOt her goodyear welter (current) drug therapy 0 Farooq Ruiz. [facility] [address], [place], [address], [place]. tel:[phone] Specialist: Amadeo King, [facility] [address] [place] [address] [address], [place], [address]. tel:[phone] ng Provider: Joseph Martin, [facility] [address], [place], [address]. tel:[phone] Office/Outpa tient Visit, Est [facility] , [address], [place], [address], [place] tel:[phone] [facility] , Unspecified pterygium of right eyeUnspecifi ed complication of corneal transplantOt her skilled nursing (current) drug therapy 9 Farooq Ruiz. [facility] [address], [place], [address], [place]. tel:[phone] Specialist: Amadeo King, [facility] [address] [facility] [address], [place], [address]. tel:[phone] ng Provider: Joseph Martin, [facility] [address], [place], [address]. tel:[phone] Office/Outpa tient Visit, New [facility] , [address], [place], [address], [place] tel:[phone] [facility] , Unspecified complication of corneal transplantUn specified pterygium of right eyeOther goodyear welter (current) drug therapy 9 Farooq Ruiz. [facility] [address], [place], [address], [place]. tel:[phone] Referring Provider: Joseph Martin, [facility] [address], [place], [address]. tel:[phone] Family History Family Member Type Diagnosis Age At Onset Mother Problem (finding) Arthritis Immunizations Vaccine Date Status Comments COVID-19 Pfizer administered Source: [place] r Provider COVID-19 Pfizer administered Source: [place] r Provider Payers Payer name Insurance type Covered constitution party ID Authoriza tion(s) [employer] CI [id number] Social History Type Description Quantity Date Captured [...] complication of corn eal transplant assessment Other goodyear welter (current) drug t herapy Mental Status Date Cognitive Assessment Orientation - [place] ed to time, place, person, situation. Patient Care Teams Name Effective Dates (start - stop) Status Members No Information
--- OUTSIDE RECORDS SUMMARY | 2023-09-14 22:11 | XMS_ITS | Encounter Summary ---
Author Name Unknown Organization [facility] Address [address] [place] [address] Care Team Providers Care Trust And Estates Attorney Name Role Phone Ailin Zavala MD Unavailable [phone] Martina Strickland PA-C Primary Care Provider Amadeo King MD Unavailable [phone] Joseph Trivedi MD Unavailable [phone] Rene Grant MD Unavailable [phone] Encounter Details Date Type Department Care Team (Late st Contact Info) Description 09/09/2023 Formerly [facility] [address] [place] [address] [facility] Social History Tobacco Use Types Packs/Day Years [...] Orientation Straight 2019 10 :10 AM CDT documented as of this encounter Plan of Treatment Upcoming Encounters Date Type Department Care Team (Late st Contact Info) Description 09/20/2023 2:45 PM CDT Office Visit [facility] [address] [facility] [address] [place] [address] Amadeo King MD [address] [facility] [address] [place], [place] [address] 12/07/2023 3:10 PM CDT Office Visit [facility] [address] [facility] [address] [place] [phone] Emma Deshpande MD [address] [place] [address] [address] [place], [place] [address] documented as of this encounter Visit Diagnoses Not on filedocumented in this encounter Care Teams Trust And Estates Attorney Relationship Specialty Start Date End Date Martina Strickland PA-C PCP - General Physician [facility] 07/19/19 Ailin Zavala MD Internal Medicine 07/28/11 Amadeo King MD [address] [place] [address] [address] [place], [place] [address] Ophthalmology 12/22/19 Joseph Trivedi MD [facility] [address] [facility] [address] [place], [place] [address] Rheumatology 05/21/20 Rene Grant MD [address] [place] [id number] Assigned Surgical Provider 09/12/22 documented as of this encounter
--- OUTSIDE RECORDS SUMMARY | 2023-09-14 22:11 | XMS_ITS | Clinical Summary ---
Author Name Unknown Organization [facility] Address [address] [place] [address] Care Team Providers Care Rigging Up Man Name Role Phone Ailin Zavala MD Unavailable [phone] Martina Strickland PA-C Primary Care Provider Amadeo King MD Unavailable [phone] Joseph Trivedi MD Unavailable [phone] Rene Grant MD Unavailable [phone] Allergies Active Allergy Reactions Criticality Noted Date Comments Lidocaine Other (See Comments) 07/22/2011 can Other reaction(s): Get the [employer] Medications Medication Sig Dispensed Refills Start Date End Date Status metFORMIN (GLUCOPHAGE-XR) 500 MG 24 hr tablet Take 1,000 mg by mouth 2 times daily Active levothyroxine (SYNTHROID/LEVOTH ROID) 125 MCG tablet Take 125 mcg by mouth daily Active sodium chloride (RENA 128) 5 % ophthalmic solutionIndicatio ns: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,Post corneal transplant,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,Webster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, right eye Place 1 [...] eye 4 times daily 15 mL 11 12/02/2022 Active prednisoLONE acetate (PRED FORTE) 1 % ophthalmic suspensionIndicat ions:Post corneal transplant,Cornea l transplant rejection, right eye Place 1-2 drops into the right eye 4 times daily 15 mL 02/19/2023 Active mycophenolate (GENERIC EQUIVALENT) 500 MG [...] right eye 2 times daily 3 mL 08/23/2023 Active sodium chloride (RENA 128) 5 % ophthalmic ointmentIndicatio ns:Post corneal transplant Place 1 Application (0.5 g) into the right eye daily 3.5 g 12/02/2022 08/23/19 24 Discontinued( Therapy completed (No [...] GOAL LESS THAN 160 07/28/2011 Hypothyroidism 07/28/2011 Encounters Date Type Department Care Team Description 09/14/[address] [address] Amadeo King MD Call Back 09/09/2023 MyC Medical Advice [address] [address] [facility] 09/07/[address] [address] Amadeo King MD Appointment (2-3 week follow up) 08/30/2023 2:45 PM CDT Office Visit [address] [address] Amadeo King MD Corneal ulcer of right eye (Primary Dx); 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; Post corneal transplant 08/30/2023 Travel 08/23/2023 3:00 PM CDT Office Visit [address] [address] Rene Grant MD Hou, Joshua Honghan, MD Corneal ulcer of right eye (Primary Dx); 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; Persistent epithelial defect of right cornea; 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 08/23/2023 Travel 08/22/2023 Travel 08/09/2023 3:00 PM CDT Office Visit [address] [place] [address] Rene Grant MD Corneal ulcer of right eye (Primary Dx); 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 08/09/2023 Travel 07/26/2023 2:45 PM CDT Office Visit [address] [address] Rene Grant MD Corneal ulcer of right eye (Primary Dx); 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; Dry eye syndrome of both eyes 07/26/2023 Travel 2023 3:00 PM CDT Office Visit [address] [address] Rene Grant MD Corneal ulcer of right eye (Primary Dx); Persistent epithelial defect of right cornea; 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; Dry eye syndrome of both eyes 2023 Travel 07/16/[address] [address] Rene Grant MD Question (Ointment) 07/14/2023 2:45 PM COOK 3 PASTRY Office Visit [address] [address] Rene Grant MD Corneal ulcer of right eye (Primary Dx); Persistent epithelial defect of right cornea 07/14/2023 Travel 07/10/[address] [address] Amadeo Winston MD Medication Refill 07/09/2023 3:00 PM COOK 3 PASTRY Office Visit [address] [place] [address] Rene Grant MD Corneal ulcer of right eye (Primary Dx); History of corneal transplant - Right Eye; 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 07/09/2023 Travel 07/06/[address] [address] Rene Grnat MD Patient Request (Lab Orders Faxed) 07/05/2023 12:30 PM COOK 3 PASTRY Office Visit [address] [address] Rene Grant MD Corneal ulcer of right eye (Primary Dx); History of corneal transplant - Right Eye; 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 07/05/2023 Travel 07/02/2023 3:00 PM COOK 3 PASTRY Office Visit [address] [address] Rene Grant MD 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) 07/02/2023 Travel 06/30/2023 9:30 AM COOK 3 PASTRY Office Visit [address] [address] Amadeo Winston MD Chanbour, Wassef, MD 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); History of corneal transplant - Right Eye; 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 06/30/2023 Travel 06/29/[address] [address] Rene Grant MD Symptoms (White spot on right cornea) from Last 3 Months Family History Medical History Relation Comments Cancer Maternal Aunt pancreatic cance r Cancer - colorectal Maternal Grandmother Arthritis Mother Diabetes Paternal Aunt Diabetes Paternal Grandmother Myocardial Infarction Paternal Uncle 80's Glaucoma No family hx of Macular Degeneration No family hx of Retinal detachment No family hx of Relation Status Comments Maternal Aunt Maternal Grandmother Mother Paternal Aunt Paternal Grandmother Paternal Uncle Social History Tobacco Use Types Packs/Day Years [...] Description 09/20/2023 2:45 PM CDT Office Visit [facility] - [address] 9 [address] Clin [address]A [place] [phone] Amadeo King MD [address] [place] [address] 12/07/2023 3:10 PM CDT Office Visit [facility] - [address] 9[address] Clin 9A [place] [address] Emma Deshpande MD [address] [place] [address] [address] [place] [address] Health Maintenance Due Date Last Done Comments ADVANCE CARE PLANNING 1965 ANNUAL REVIEW OF HM ORDERS 1965 CT COLONOGRAPHY 1965 FIT 1965 FLEX SIG 1965 MAMMO SCREENING 1965 YEARLY PREVENTIVE VISIT 1965 sDNA (Cologuard) 1965 Pneumococcal Vaccine: Pediatrics (0 to 5 Years) and At-Risk Patients (6 to 64 Years) (1 of 2 - PCV) 07/22/1971 COLONOSCOPY 07/22/1975 COLORECTAL CANCER SCREENING 07/22/1975 HIV SCREENING 1980 HEPATITIS C SCREENING 07/22/1983 HEPATITIS B IMMUNIZATION (1 of 3 - 19+ 3-dose series) 1984 ZOSTER IMMUNIZATION (1 of 2) 1984 LIPID 2005 TSH W/FREE T4 REFLEX 2012 07/22/2011 GLUCOSE 2014 07/22/2011, 09/16/2008 PAP 11/09/2023 11/08/2020, 11/08/2020 DTAP/TDAP/TD IMMUNIZATION (2 - Td or Tdap) 11/27/2027 11/26/2017, 06/17/2007 INFLUENZA VACCINE Completed 02/10/2023, , 01/28/2019, Additional history exists COVID-19 Vaccine Completed 03/06/2023, , 08/17/2020, Additional history exists PHQ-2 (once per calendar year) Completed 08/30/2023, 07/26/2023, 06/30/2023, Additional history exists HPV IMMUNIZATION Aged Out No longer e ligible based on patient's age to complete this topic IPV IMMUNIZATION Aged Out No longer e ligible based on patient's age to complete this topic MENINGITIS IMMUNIZATION Aged Out No l onger eligible based on patient's age to complete this topic RSV MONOCLONAL ANTIBODY Aged Out No l onger eligible based on patient's age to complete this topic Procedures Procedure Name Priority Date/Time Associated Diagnosis Comments PUNCTAL CLOSURE, PLUGS Routine 08/23/2023 4:31 PM CDT 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 SLIT LAMP PHOTOS OD (RIGHT EYE) Routine 07/26/2023 3:53 PM CDT Corneal ulcer of right eye AMNIOTIC MEMBRANE NON SUTURE OD Routine 07/14/2023 10:10 PM COOK 3 PASTRY 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 ULTRASOUND B-SCAN OD (RIGHT EYE) Routine 07/05/2023 2:05 PM COOK 3 PASTRY Corneal ulcer of right eye SLIT LAMP PHOTOS OD (RIGHT EYE) Routine 07/05/2023 2:05 PM COOK 3 PASTRY Corneal ulcer of right eye ULTRASOUND B-SCAN OD (RIGHT EYE) Routine 07/02/2023 4:01 PM COOK 3 PASTRY Central corneal ulcer of right eye CORNEAL CULTURE OD (RIGHT EYE) Routine 06/30/2023 11:22 AM COOK 3 PASTRY Central corneal ulcer of right eye SLIT LAMP PHOTOS OD (RIGHT EYE) Routine 06/30/2023 11:22 AM COOK 3 PASTRY Central corneal ulcer of right eye GRAM STAIN Routine 06/30/2023 11:00 AM COOK 3 PASTRY Central corneal ulcer of right eye AEROBIC BACTERIAL CULTURE ROUTINE Routine 06/30/2023 11:00 AM COOK 3 PASTRY Central corneal ulcer of right eye AMOEBA CULTURE Routine 06/30/2023 11:00 AM COOK 3 PASTRY Central corneal ulcer of right eye FUNGAL OR YEAST CULTURE ROUTINE Routine 06/30/2023 11:00 AM COOK 3 PASTRY Central corneal ulcer of right eye ANAEROBIC BACTERIAL CULTURE ROUTINE Routine 06/30/2023 11:00 AM COOK 3 PASTRY Central corneal ulcer of right eye TAYLOR PREP Routine 06/30/2023 11:00 AM COOK 3 PASTRY Central corneal ulcer of right eye BASIC [...] . Location: Right lower . Ref #: [id number]. Lot #: [id number] . Punctal Plug Insertion #4 Plan: Monitor, [...] of3 resultswithin the time period is included. Rene Saravia MD - 07/26/2023 3:53 PM CDT Performed by: rp . Patient cooperation: Reliable . Reliability of the test: Good . Test Findings: Abnormal . Plan: Monitor . Interval: Same . Rene Grant MD OPHTHALMOLOGY * Amniotic Membrane Non Suture OD (07/14/2023 10:10 PM COOK 3 PASTRY) Rene Saravia MD - 07/14/2023 10:10 PM COOK 3 PASTRY Time out performed at: 3:21 PM . Preprocedure Medication: Proparacaine 2% solution . Plan: Monitor . Attending assisted by: Fellow . Notes Estuardo hart 2025-04-05 [id number] Cydney Madrid MD OPHTHALMOLOGY * Ultrasound B-scan OD (right eye) (07/05/2023 2:05 PM COOK 3 PASTRY) Only the most recent of2 resultswithin the time period is included. Rene Saravia MD - 07/05/2023 2:05 PM COOK 3 PASTRY Patient cooperation: Reliable . Reliability of the test: Good . Test Findings: Normal . Interpretation: Normal . Interval: Same . Notes Vitreous floaters no endophthalmitis Rene Grant MD OPHTHALMOLOGY * Corneal Culture OD (right eye) (06/30/2023 11:22 AM COOK 3 PASTRY) Rene Saravia MD - 06/30/2023 11:22 AM COOK 3 PASTRY Sign in/Time Out: Sign in communication completed, [...] Routine Without Gram Stain (06/30/2023 11:00 AM COOK 3 PASTRY) Culture 15-50 CFU Granulicatella adiacens(A) BHAVIN 07/04/2023 10:10 AM COOK 3 PASTRY [facility] Tissue STRUCTURE OF CORNEA OF RIGHT EYE / Unknown Non-blood Collection / Unknown 06/30/2023 11:00 AM COOK 3 PASTRY 06/30/2023 12:41 PM COOK 3 PASTRY Narrative Organism Antibiotic Method Susceptibility Granulicatella adiacens [...] - MICRO GENERAL ORDERABLES [facility] Inf. Diseases Diag. Lab [address] [facility], [address] [address] [phone] * Fungus Culture, non-blood (06/30/2023 11:00 AM COOK 3 PASTRY) Culture No Growth BHAVIN 07/28/2023 8:33 AM CDT [facility] Tissue STRUCTURE OF CORNEA OF RIGHT EYE / Unknown Non-blood Collection / Unknown 06/30/2023 11:00 AM COOK 3 PASTRY 06/30/2023 12:41 PM COOK 3 PASTRY Rene Grant MD LAB - MICRO GENERAL ORDERABLES [facility] Inf. Diseases Diag. Lab [address] [facility], [address] [address] * Parasite Culture (06/30/2023 11:00 AM COOK 3 PASTRY) Culture Negative for Amoebae after 10 days of incubation BHAVIN 07/10/2023 7:26 AM COOK 3 PASTRY [facility] Direct Stain Negative for Amoebae 07/10/2023 7:26 AM COOK 3 PASTRY [facility] Comment:Results reviewed by Fabricio Monterroso, Ph.D., Co Founder And Director Head Of Biology. 06/30/23 Tissue STRUCTURE OF CORNEA OF RIGHT EYE / Unknown Non-blood Collection / Unknown 06/30/2023 11:00 AM COOK 3 PASTRY 06/30/2023 12:42 PM COOK 3 PASTRY Rene Grant MD LAB - MICRO GENERAL ORDERABLES Performing Organization Address City/[facility]/ZIP Co de Phone Number [facility] Inf. Diseases Diag. Lab [address] [facility], [address] [address], [facility] [phone] * Taylor prep (06/30/2023 11:00 AM COOK 3 PASTRY) TAYLOR Preparation No fungal elements seen 06/30/2023 2:04 PM COOK 3 PASTRY [facility] TAYLOR Preparation Reference Range: No fungal elements seen. 06/30/2023 2:04 PM COOK 3 PASTRY [facility] Tissue STRUCTURE OF CORNEA OF RIGHT EYE / Unknown Non-blood Collection / Unknown 06/30/2023 11:00 AM COOK 3 PASTRY 06/30/2023 12:41 PM COOK 3 PASTRY Rene Grant MD LAB - MICRO GENERAL ORDERABLES [facility] Inf. Diseases Diag. Lab [address] [facility], [address] [address], [facility] [phone] * (ABNORMAL) Gram stain (06/30/2023 11:00 AM COOK 3 PASTRY) Gram Stain Result 4+ Gram positive cocci(A) 06/30/2023 2:09 PM COOK 3 PASTRY [facility] Gram Stain Result 4+ Gram negative bacilli(A) 06/30/2023 2:09 PM COOK 3 PASTRY [facility] Gram Stain Result 2+ Gram positive bacilli(A) 06/30/2023 2:09 PM COOK 3 PASTRY [facility] Gram Stain Result 4+ WBC seen(A) 06/30/2023 2:09 PM COOK 3 PASTRY [facility] Comment:Predominantly PMNs Tissue STRUCTURE OF CORNEA OF RIGHT EYE / Unknown Non-blood Collection / Unknown 06/30/2023 11:00 AM COOK 3 PASTRY 06/30/2023 12:42 PM COOK 3 PASTRY Narrative [facility] - 06/30/2023 2:09 PM COOK 3 PASTRY Rene Grant MD LAB - MICRO GENERAL ORDERABLES Performing Organization Address City/[facility]/ZIP Co de Phone Number [facility] Inf. Diseases Diag. Lab [address] [facility], Room [place] [address], [facility] [phone] * Anaerobic bacterial culture (06/30/2023 11:00 AM COOK 3 PASTRY) Culture No anaerobic organisms isolated BHAVIN 07/07/2023 10:49 AM COOK 3 PASTRY [facility] Tissue STRUCTURE OF CORNEA OF RIGHT EYE / Unknown Non-blood Collection / Unknown 06/30/2023 11:00 AM COOK 3 PASTRY 06/30/2023 12:42 PM COOK 3 PASTRY Rene Grant MD LAB - MICRO GENERAL ORDERABLES Performing Organization Address [facility]/ZIP Co de Phone Number [facility] Inf. Diseases Diag. Lab [address] [facility], [address] [address], [facility] [phone] * (ABNORMAL) TSH (07/22/2011 8:00 AM CDT) TSH 14.50(H) 0.4 - 5.0 mU/L [facility] Blood specimen (specimen) 07/22/2011 8:00 AM CDT 07/22/2011 8:14 AM CDT Yesenia Gomez MD LAB - BLOOD O RDERABLES [facility] * Basic metabolic panel (07/22/2011 8:00 AM CDT) Sodium 138 133 - 144 mmol/L [facility] Potassium 4.2 3.4 - 5.3 mmol/L [facility] Chloride 107 94 - 109 mmol/L [facility] Carbon Dioxide 23 20 - 32 mmol/L [facility] Anion Gap 9 6 - 17 mmol/L [facility] Glucose 94 60 - 99 mg/dL [facility] Urea Nitrogen 14 5 - 24 mg/dL [facility] Creatinine 0.68 0.52 - 1.04 mg/dL [facility] GFR Estimate >90 >60 mL/min/1.7 m2 [facility] GFR Estimate If Black >90 >60 mL/min/1.7 m2 [facility] Calcium 9.1 8.5 - 10.4 mg/dL [facility] Blood specimen (specimen) 07/22/2011 8:00 AM CDT 07/22/2011 8:14 AM CDT Yesenia Gomez MD LAB - BLOOD O RDERABLES Performing Organization Address [facility]/ZIP Co de Phone Number [facility] * PAP SMEAR (10/02/1998 1:18 PM CDT) Unlabelled DNR [facility] Biopsy Sent DNR [facility] Source VAG,CERV,E NDOCERV [facility] LMP POST [facility] PARA 3 [facility] 2 [facility] Clinical History DNR [facility] Therapy DNR [facility] Last Pap Diagnosis WITHIN NORMAL LIMITS [facility] PAP Date [id number] [facility] Specimen # DNR [facility] Tissue DNR [facility] Tissue Date DNR [facility] Statement of Adequacy [facility] Comment: SATISFACTORY FOR INTERPRETATION POST MENOPAUSAL PATIENT. ??NO ENDOCERVICAL CELLS SEEN. General Categorization DNR [facility] Descriptive Diagnosis [facility] Comment: WITHIN NORMAL LIMITS ATROPHIC CELL PATTERN Recommendations DNR [facility] DNR 114,,,,,, [facility] DNR DNR [facility] DNR DNR [facility] DNR DNR [facility] . [facility] Comment: ?PAP SMEARS ARE SUBJECT TO BOTH FALSE NEGATIVE AND FALSE ? POSITIVE RESULTS EVIDENCED BY DATA PUBLISHED IN THE ? MEDICAL LITERATURE. ??YOUR PATIENT'S RESULT SHOULD BE ? INTERPRETED IN THIS CONTEXT, TOGETHER WITH THE PATIENT'S ? HISTORY AND CLINICAL FINDINGS. TESTING LOCATION ? THIS TEST WAS PERFORMED AT [facility] ? [address]. [id number] ? PHONE NUMBERS FOR CYTOLOGY INQUIRES, INCLUDING SLIDE REQUESTS ? EXT. [phone] ?? EXT. 485 09/30/1998 Mary Morales MD LABORATORY [facility] from Last 3 Months or Most Recently Relevant to Health Maintenance Care Teams Rigging Up Man Relationship Specialty Start Date End Date Martina Strickland PA-C PCP - General Physician Co Founder And Director 07/19/19 Ailin Zavala MD Internal Medicine 07/28/11 Amadeo King MD [address] [place] [address] Ophthalmology 12/22/19 Joseph Trivedi MD [facility] [address] [phone] Rheumatology 05/21/20 Rene Grant MD [address] [place] [phone] Assigned Surgical Provider 09/12/22
--- OUTSIDE RECORDS SUMMARY | 2023-09-14 22:11 | XMS_ITS | Encounter Summary ---
Author Name Unknown Organization [facility] Address [address] [place] [address] Care Team Providers Care Roller Skater Name Role Phone Ailin Zavala MD Unavailable [phone] Martina Strickland PA-C Primary Care Provider Amadeo King MD Unavailable [phone] Joseph Trivedi MD Unavailable [phone] Rene Grant MD Unavailable [phone] Encounter Details Date Type Department Care Team (Latest Contact Info) Description 08/23/2023 Travel Social History Tobacco Use Types Packs/Day Years Used Date Smoking Tobacco: Never Smokeless Tobacco: Never Alcohol Use Standard Drinks/Week Comments No 0 (1 standard drink = 0.6 oz pur e alcohol) PHQ-2 Answer Date Recorded PHQ-2 Score 0 07/26/2023 Adolescent Education Answer Date Record ed Getting [...] Description 09/20/2023 2:45 PM CDT Office Visit [facility] Eye [address] [place] [address] Amadeo King MD [address] [facility] [address] [place], [place] [address] 12/07/2023 3:10 PM CDT Office Visit [facility] [address] [facility] 9th [address] Clin [address] [place] [address] Emma Deshpande MD [address] [facility] [address] [place] [address] documented as of this encounter Visit Diagnoses Not on filedocumented in this encounter Care Teams Roller Skater Relationship Specialty Start Date End Date Martina Strickland PA-C PCP - General Physician Manager Call Center 07/19/19 Ailin Zavala MD Internal Medicine 07/28/11 Amadeo King MD [address] [place] [phone] Ophthalmology 12/22/19 Joseph Trivedi MD [facility] [address] [facility] [address] [place], [place] [address] Rheumatology 05/21/20 Rene Grant MD [address] [place] [address] [phone] Assigned Surgical Provider 09/12/22 documented as of this encounter
--- OUTSIDE RECORDS SUMMARY | 2023-09-14 22:11 | XMS_ITS | Encounter Summary ---
Author Name Unknown Organization [facility] Address [address] [place] [address] Care Team Providers Care Remote Sensing Specialist Name Role Phone Ailin Zavala MD Unavailable [phone] Martina Strickland PA-C Primary Care Provider Amadeo King MD Unavailable [phone] Joseph Trivedi MD Unavailable [phone] Rene Grant MD Unavailable [phone] Reason for Visit * Reason Onset Date Comments Call Back 09/14/2023 Encounter Details Date Type Department Care Team (Late st Contact Info) Description 09/14/2023 Telephone [facility] [address] [facility] 9th [address] [place] [phone] Amadeo King MD [address] [phone] Call Back Social History Tobacco Use Types Packs/Day Years [...] AM CDT documented as of this encounter Miscellaneous Notes * Telephone Encounter - Jsoe Camara RN - 09/14/2023 3:20 PM CDT Labs faxed to lab per request-- [phone] Commented to fax results to [phone] Jose Camara RN 3:20 PM 09/14/23 * Telephone Encounter - Zara Stewart - 09/14/2023 3:11 PM CDT [facility] Call Center Phone Message May a detailed message be left on voicemail: yes Reason for Call: Other: pt is requesting a call back lisha from Susi or Florecita with Dr King, [facility] and there is no papers their or orders. Please contactpt LISHA if possible Thank you Action Taken: Message routed to: [facility] eye Travel Screening: Not Applicable documented in this encounter Plan of Treatment Upcoming Encounters Date Type Department Care Team (Late st Contact Info) Description 09/20/2023 2:45 PM CDT Office Visit [facility] [place] [address] [facility] [address] [place] [address] Amadeo King MD 420 [facility] [address] [place], [place] [address] 12/07/2023 3:10 PM CDT Office Visit [facility] [address] [facility] [address] [place] [address] Emma Deshpande MD [address] [facility] [address] [place], [place] [address] documented as of this encounter Visit Diagnoses Not on filedocumented in this encounter Care Teams Remote Sensing Specialist Relationship Specialty Start Date End Date Martina Strickland PA-C PCP - General Physician Commanding Officer Motorized Squad 07/19/19 Ailin Zavala MD Internal Medicine 07/28/11 Amadeo King MD [address] [facility] [address] [place] [address] Ophthalmology 12/22/19 Joseph Trivedi MD [facility] [address] [address] Rheumatology 05/21/20 Rene Grant MD 516 [place] [address] Assigned Surgical Provider 09/12/22 documented as of this encounter
--- OUTSIDE RECORDS SUMMARY | 2023-09-14 22:11 | XMS_ITS | Encounter Summary ---
Author Name Unknown Organization [facility] Address [address] [place] [address] Care Team Providers Care Income Tax Administrator Name Role Phone Ailin Zavala MD Unavailable [phone] Martina Strickland PA-C Primary Care Provider Amadeo King MD Unavailable [phone] Joseph Trivedi MD Unavailable [phone] Rene Grant MD Unavailable [phone] Reason for Visit * Reason Comments Corneal Ulcer Follow Up Corneal ulcer of right eye Encounter Details Date Type Department Care Team (Late st Contact Info) Description 08/30/2023 2:45 PM CDT Office Visit [facility] [address] [facility] [address] [place] [phone] Amadeo King MD [address] [address] Corneal ulcer of right eye (Primary Dx); 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 Marcus. 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 Deshpande. Interval Hx: 08/30/23 s/p KLAL/PKP/lens explantation/scleral fixated lens OD, and s/p conj chalasis excision 06/14/2019. Has been following with Dr. Grant recently due to corneal ulcer in the right eye. Referred back to evaluate possible need for repeat KLAL with PKP. 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 Trivedi ([facility]) DM s DR -- was following at [facility] with Dr. 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/18) -- improved A/Cdepth and IOP s/p KLAL/PKP/lens explantation/scleral fixated lens right eye 04/18/2019 S/p conjunctival chalasis right eye 06/14/2019 Gtts: Pred QID OD Moxifloxacin BID OD Tacrolimus 0.1% QHS OD (due to contact lens use) PF AT Q1H Sadia gtt QID right eye Latanoprost at bedtime right eye Cellcept 500 BID A/P: # s/p multiple PKP OD - recurrent graft failure with progressive LSCD, likely 2/2 multiple surgeries and glaucoma drops # s/p KLAL/PKP OD/IOL exchange right eye 04/18/2019 # s/p conj chalasis excision nasally right eye 06/14/2019 - Severe astigmatism related to tight sutures; gradually improving with serial suture removal. - placed Kontur 9.0/18.0 05/13/2020 due to injection of KLAL graft - discontinued Kontour 08/05/20 - RGP achieved 20/30 vision prior #Right eye corneal scar Recent corneal ulcer following with Dr. Grant. Currently has Kontour lens in place. Referred forevaluation of possible repeat KLAL + PKP PLAN: - replace BCL OD 08/30/23 - continue PF AT Q1H right eye - Decrease Prednisolone to TID right eye - to help re-epithelialization - decrease moxifloxacin to BID OD - continue tacrolimus to bedtime only while she is using RGP OD - s/p punctal plug RLL 08/23/23 - discussed possible topical insulin - may be cost prohibitive - check CMP/CBC - continue CellCept 500 BID - continue Valtrex 500 mg daily #. Dry eyes OU - continue PF AT Q1H OD - warm compresses - PF glaucoma meds if possible #. Mixed mechanism glaucoma OD - Previously seen by Dr. Padron - continue brimonidine BID right eye #. 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 DM s Retinopathy - continue to follow with Dr. Deshpande #. Pseudophakia, right eye - S/p Yag Cap 05/2020 Follow up: 3 weeks w/ Vt after Punctal plug, sooner if problems. Attending Physician Attestation: Complete documentation of historical and exam elements from today's encounter can be found in the full encounter summary report (not reduplicated in this progress note). I personally obtained the chief complaint(s) and history of present illness. I confirmed and edited as necessary the review of systems, past medical/surgical history, family history, social history, and examination findings as documented by others; and I examined the patient myself. I personallyreviewed the relevant tests, images, and reports as documented above. I formulated and edited as necessary the assessment and plan and discussed the findings and management plan with the patient and family. - Amadeo King MD documented in this encounter Nursing Notes * Lydia Dhillon COT - 08/30/2023 2:45 PM CDT Chief Complaints and History of Present Illnesses Patient presents with Corneal Ulcer Follow Up Corneal ulcer of right eye Chief Complaint(s) and History of Present Illness(es) Corneal Ulcer Follow Up Laterality: right eye Associated symptoms: tearing. Negative for dryness, eye pain, photophobia, flashes, floaters, discharge and foreign body sensation Pain scale: 0/10 Comments: Corneal ulcer of right eye Comments Pt states vision is stable. No pain. No flashes/floaters. Pt is compliant with drops. JANET Monae August 30, 2023 3:07 PM documented in this encounter Plan of Treatment Upcoming Encounters Date Type Department Care Team (Late st Contact Info) Description 09/20/2023 2:45 PM CDT Office Visit [facility] [address] [facility] [address] [place] [address] Amadeo King MD [address] [place] [address] [address] [place], [place] [address] 12/07/2023 3:10 PM CDT Office Visit [facility] [address] [place] [address] Emma Deshpande MD 516 [facility] [address] [place], [place] [address] documented as of this encounter Visit Diagnoses Diagnosis Corneal ulcer of right eye- Primary Corneal ulcer, unspecified 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
--- OUTSIDE RECORDS SUMMARY | 2023-09-14 22:11 | XMS_ITS | Encounter Summary ---
Author Name Unknown Organization [facility] Address [address] [place] [address] Care Team Providers Care Locomotive Observer Name Role Phone Ailin Zavala MD Unavailable [phone] Martina Strickland PA-C Primary Care Provider Amadeo King MD Unavailable [phone] Joseph Trivedi MD Unavailable [phone] Rene Grant MD Unavailable [phone] Reason for Visit * Reason Onset Date Comments Appointment 09/07/2023 2-3 week follow up Encounter Details Date Type Department Care Team (Late st Contact Info) Description 09/07/2023 Telephone [facility] 516 [facility] 9[facility] [address]A [place] [phone] Amadeo King MD [address] [id number] Appointment (2-3 week follow up) Social History Tobacco Use Types Packs/Day Years [...] encounter Miscellaneous Notes * Telephone Encounter - Callie Norwood - 09/07/2023 11:22 AM CDT [facility] Call Center Phone Message May a detailed message be left on voicemail: yes Reason for Call: Other: Pt was scheduled for a 2-[address] week follow up [address]. King on 09/08 but she is ill and will not be able to make it to that appt. Next available isn't until 01/16. Please call pt to discuss scheduling options (preferred time is later afternoon). Thank you. Action Taken: Message routed to: [facility] Travel Screening: Not Applicable documented in this encounter Plan of Treatment Upcoming Encounters Date Type Department Care Team (Late st Contact Info) Description 09/20/2023 2:45 PM CDT Office Visit [facility] 516 [facility] [address] Clin [address] [place] [address] Amadeo King MD 420 [facility] [address] [place] [address] 12/07/2023 3:10 PM CDT Office Visit [facility] 516 [facility] [address] Clin [address] [place] [address] Emma Deshpande MD 516 [facility] [address] [place], [place] [address] documented as of this encounter Visit Diagnoses Not on filedocumented in this encounter Care Teams Locomotive Observer Relationship Specialty Start Date End Date Martina Strickland PA-C PCP - General Physician Night Shift Supervisor 07/19/19 Ailin Zavala MD Internal Medicine 07/28/11 Amadeo King MD 420 [facility] 493 [place] [address] Ophthalmology 12/22/19 Joseph Trivedi MD [facility] [address] [place], [place] [address] Rheumatology 05/21/20 Rene Grant MD 516 [place] [address] Assigned Surgical Provider 09/12/22 documented as of this encounter
--- OUTSIDE RECORDS SUMMARY | 2023-09-14 22:11 | XMS_ITS | Encounter Summary ---
Author Name Unknown Organization [facility] Address [address] [place] [address] Care Team Providers Care Assistant Football Coach Name Role Phone Ailin Zavala MD Unavailable [phone] Martina Strickland PA-C Primary Care Provider Amadeo King MD Unavailable [phone] Joseph Trivedi MD Unavailable [phone] Rene Grant MD Unavailable [phone] Encounter Details Date Type Department Care Team (Latest Contact Info) Description 08/30/2023 Travel Social History Tobacco Use Types Packs/Day [...] Description 09/20/2023 2:45 PM CDT Office Visit [facility] Eye [address] Clin 9[address] [place] [phone] Amadeo King MD 420 [facility] [address] [place], [place] [address] 12/07/2023 3:10 PM CDT Office Visit [facility] Eye [facility] 516 [facility] 9th [address] Clin [address] [place] [address] Emma Deshpande MD 516 [facility] [address] [place] [address] documented as of this encounter Visit Diagnoses Not on filedocumented in this encounter Care Teams Assistant Football Coach Relationship Specialty Start Date End Date Martina Strickland PA-C PCP - General Physician Electrical Test Engineer 07/19/19 Ailin Zavala MD Internal Medicine 07/28/11 Amadeo King MD [address] [place] [id number] Ophthalmology 12/22/19 Joseph Trivedi MD [facility] [address] [facility] 215 [place], [place] [address] Rheumatology 05/21/20 Rene Grant MD [address] [place] [address] Assigned Surgical Provider 09/12/22 documented as of this encounter
--- OUTSIDE RECORDS SUMMARY | 2023-09-14 22:12 | XMS_ITS | Encounter Summary ---
Author Name Unknown Organization [facility] Address [address] [place] [address] Care Team Providers Care Public Works Technician Name Role Phone Ailin Zavala MD Unavailable [phone] Martina Strickland PA-C Primary Care Provider Amadeo King MD Unavailable [phone] Joseph Trivedi MD Unavailable [phone] Rene Grant MD Unavailable [phone] Reason for Visit * Reason Onset Date Comments Patient Request 07/06/2023 Lab Orders Faxed Encounter Details Date Type Department Care Team (Late st Contact Info) Description 07/06/2023 Telephone [facility] Eye [address] 9[facility] Clin 9A [place] [phone] Rene Grant MD [address] [place] [address] Patient Request (Lab Orders Faxed) Social History Tobacco Use Types Packs/Day Years Used Date Smoking Tobacco: Never Smokeless Tobacco: Never Alcohol Use Standard Drinks/Week Comments No 0 (1 standard drink = 0.6 oz pur e alcohol) PHQ-2 Answer Date Recorded PHQ-2 Score 0 06/30/2023 Adolescent Education Answer Date Record ed Getting School Help Needed Not on file 02/05 Sex and Gender Information Value Date Recorded Sex Assigned at Female 2019 10:10 AM CDT Gender Identity Female 2019 10:10 AM CDT Sexual Orientation Straight 2019 10 :10 AM CDT documented as of this encounter Miscellaneous Notes * Telephone Encounter - Sarai Ricks - 07/06/2023 2:56 PM CST Called and LVM I did not see any orders in epic Confirmed with Cornea team she did not have any orders for lab They will discuss her request when she comes in on Wednesday for her appointment Sarai Ricks Communication Venture Capitalist on 07/06/2023 at 2:58 PM PLANT MANAGER * Telephone Encounter - Martina Silveira - 07/06/2023 12:36 PM CST [facility] Phone Message May a detailed message be left on voicemail: yes Reason for Call: Other: Pt is requesting her lab orders be sent over to the [facility]. States she is supposed to get some blood work done for her medication but is unable to without the lab order faxed. [facility] states pt would need the order in prior to scheduling. Please fax orders to: [facility] Thank You! Action Taken: Message routed to: [facility] eye Travel Screening: Not Applicable PLANT MANAGER documented in this encounter Plan of Treatment Upcoming Encounters Date Type Department Care Team (Late st Contact Info) Description 09/20/2023 2:45 PM CDT Office Visit [facility] Eye [facility] [place] [facility] [address] [facility] 9th [place] Clin 9[address] [place] [phone] Amadeo King MD [address] [place] [address] 12/07/2023 3:10 PM CDT Office Visit [facility] [place] [address] [facility] 9th [place] Clin [address] [place] [address] Emma Deshpande MD 516 [facility] [address] [place], [place] [address] documented as of this encounter Visit Diagnoses Not on filedocumented in this encounter Care Teams Public Works Technician Relationship Specialty Start Date End Date Martina Strickland PA-C PCP - General Physician Economics Consultant 07/19/19 Ailin Zavala MD Internal Medicine 07/28/11 Amadeo King MD 420 [facility] 493 [place], [place] [phone] Ophthalmology 12/22/19 Joseph Trivedi MD [facility] [address] [facility] 215 [place], [place] [address] Rheumatology 05/21/20 Rene Grant MD [address] [place] [phone] Assigned Surgical Provider 09/12/22 documented as of this encounter
--- OUTSIDE RECORDS SUMMARY | 2023-09-14 22:12 | XMS_ITS | Encounter Summary ---
Author Name Unknown Organization [facility] Address [address] [place] [address] Care Team Providers Care Park Superintendent Name Role Phone Ailin Zavala MD Unavailable [phone] Martina Strickland PA-C Primary Care Provider Amadeo King MD Unavailable [phone] Joseph Trivedi MD Unavailable [phone] Rene Grant MD Unavailable [phone] Encounter Details Date Type Department Care Team (Latest Contact Info) Description 2023 Travel Social History Tobacco Use Types Packs/Day [...] Description 09/20/2023 2:45 PM CDT Office Visit [facility] Eye [address] Clin 9[address] [place] [phone] Amadeo King MD 420 [facility] 493 [place], [place] [address] 12/07/2023 3:10 PM CDT Office Visit [facility] 516 [facility] 9th [address] Clin 9[address] [place] [address] Emma Deshpande MD 516 [facility] [address] [place] [address] documented as of this encounter Visit Diagnoses Not on filedocumented in this encounter Care Teams Park Superintendent Relationship Specialty Start Date End Date Martina Strickland PA-C PCP - General Physician Plater Apprentice 07/19/19 Ailin Zavala MD Internal Medicine 07/28/11 Amadeo King MD [address] [place] [address] Ophthalmology 12/22/19 Joseph Trivedi MD [facility] [address] [facility] 215 [place], [place] [address] Rheumatology 05/21/20 Rene Grant MD [address] [place] [phone] Assigned Surgical Provider 09/12/22 documented as of this encounter
--- OUTSIDE RECORDS SUMMARY | 2023-09-14 22:12 | XMS_ITS | Encounter Summary ---
Author Name Unknown Organization [facility] Address [address] [place] [address] Care Team Providers Care Horse Breaker Name Role Phone Ailin Zavala MD Unavailable [phone] Martina Strickland PA-C Primary Care Provider Amadeo King MD Unavailable [phone] Joseph Trivedi MD Unavailable [phone] Rene Grant MD Unavailable [phone] Reason for Visit * Reason Comments Corneal Ulcer Follow Up Corneal ulcer of right eye Encounter Details Date Type Department Care Team (Late st Contact Info) Description 07/26/2023 2:45 PM CDT Office Visit [facility] Eye [address] [facility] [address] [place] [address] Rene Grant MD [address] [place] [address] Corneal ulcer of right eye (Primary Dx); 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 Marcus. 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 Deshpande. Interval hx 07/26/2023 Chief Complaint(s) and History of Present Illness(es) Corneal Ulcer Follow Up In right eye. Associated symptoms include dryness, photophobia, itching and foreign body sensation.Negative for eye pain, tearing, flashes, floaters and discharge. Treatments tried include eye drops, artificial tears and ointment. Pain was noted as 0/10. Additional comments: Corneal ulcer of righteye Comments Pt does not have glasses with, broken at home. Procera is uncomfortable RE. Pt states vision is the same. No pain, just irritation. No flashes/floaters. Pt is compliant with drops. 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 Trivedi ([facility]) DM s -- was following at [facility] with Dr. 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 Deshpande (09/30/18) -- improved A/Cdepth and IOP s/p KLAL/PKP/lens explantation/scleral fixated lens right eye 04/18/2019 S/p conjunctival chalasis right eye 06/14/2019 Gtts: - Vancomycin every 4 hours while awake right eye (gets them in 4x/day) - Tobramycin every 4 hours while awake right eye (gets them in 4x/day) - Voriconazole stopped 07/14/23 - PFAT Q1H - Prednisolone QID - Tacrolimus at bedtime - Sadia Q2H - Cellcept 500mg BID - Valtrex 500mg daily - Latanoprost at bedtime Cellcept 500mg BID Valtrex 500mg po daily (for oral ulcers, not for eye coverage) (using prn) Stopped due to surface irritation A/P: #New corneal ulcer right eye 06/30/23 Noticed 3 days ago High risk of fungal infection due to hx of KLAL Cultures taken 06/30/23 15-50 CFU Granulicatella adiacens Abnormal Gram stain 06/30/23 4+ Gram positive cocci 4+ Gram negative bacilli 2+ Gram positive bacilli 4+ WBC seen Predominantly PMNs 07/26/23: smaller epi defect, infection seems inactive but epi defect is persistent # s/p multiple PKP OD - recurrent graft failure with progressive LSCD, likely 2/2 multiple surgeries and glaucoma drops # s/p KLAL/PKP OD/IOL exchange right eye 04/18/2019 # s/p conj chalasis excision nasally right eye 06/14/2019 - RGP achieved 20/30 vision prior 06/03/22. Engorged vessels at the limbal transplant looks chronic (from past exams and patient does not report increased redness) and less likely rejecting. - 08/19/22 The cornea looks edematous as previously noted, most likely an endothelial failure. Will continue the same treatment for now as she has the same vision and the exam is stable. 02/19/23: stable corneal exam with superior edema in the right eye 07/05/23: high likelihood of graft failure and scarring, informed patient that healing will be slow and risk of chronic epi defect 07/14/23: prokera placed 07/21/23: prokera in place 07/26/23 non healing epi defect on top of the scarred cornea PLAN: Patient as LSCD again following the infection and may need a new KLAL with PKP. Will refer to Dr King for management since he had the first surgery done BCL placed today, prokera removed. -fortified Vancomycin TID right eye -fortified tobramycin TID right eye - Stop voriconazol - hold off on RGP lens right eye due to corneal ulcer - continue PF AT Q1H right eye - prednisolone QID - continue tacrolimus to bedtime only while she is using RGP OD - continue Sadia q2H OD - continue CellCept 500 BID - continue Valtrex 500 mg daily #. Dry eyes OU - continue PF AT Q1H OD - warm compresses - PF glaucoma meds if possible -discussed punctal plugs vs restasis, patient would like to wait for now before considering these treatments #. Mixed mechanism glaucoma right eye - IOP stable; continue latanoprost at bedtime OD #cataract left eye Mild, not affecting vision for now. To watch Other conditions: #. H/o aqueous misdirection OD -continue to follow with Dr. Deshpande #. DM s Retinopathy - continue to follow with Dr. Deshpande #. Pseudophakia, right eye - S/p Yag Cap 05/2020 Follow up: 2 weeks heaven and 1 month Christine LACEY BROKERAGE MANAGER Attending Physician Attestation: Complete documentation of historical [...] plan with the patient and family. - Rene Grant MD documented in this encounter Nursing Notes * Lydia Dhillon COT - 07/26/2023 2:45 PM CDT Chief Complaints and History of Present Illnesses Patient presents with Corneal Ulcer Follow Up Corneal ulcer of right eye Chief Complaint(s) and History of Present Illness(es) Corneal Ulcer Follow Up Laterality: right eye Associated symptoms: dryness, photophobia, itching and foreign body sensation. Negative for eye pain, tearing, flashes, floaters and discharge Treatments tried: eye drops, artificial tears and ointment Pain scale: 0/10 Comments: Corneal ulcer of right eye Comments Pt does not have glasses with, broken at home. Procera is uncomfortable RE. Pt states vision is the same. No pain, just irritation. No flashes/floaters. Pt is compliant with drops. JANET Monae July 26, 2023 2:51 PM documented in this encounter Plan of Treatment Upcoming Encounters Date Type Department Care Team (Late st Contact Info) Description 09/20/2023 2:45 PM CDT Office Visit [facility] [address] [facility] 9th Hi Clin 9A [place] [address] Amadeo King MD 420 [facility] 493 [place] [address] 12/07/2023 3:10 PM CDT Office Visit [facility] [address] [facility] 9[address] Clin 9[address] [place] [address] Emma Deshpande MD [address] [facility] [address] [place] [address] documented as of this encounter Procedures Procedure Name Priority Date/Time Associated Diagnosis Comments SLIT LAMP PHOTOS OD (RIGHT EYE) Routine 07/26/2023 3:53 PM CDT Corneal ulcer of right eye documented in this encounter Results * Slit Lamp Photos OD (right eye) (07/26/2023 3:53 PM CDT) Narrative Rene Grant MD - 07/26/2023 3:53 PM CDT Performed by: rp . Patient cooperation: Reliable . Reliability of the test: Good . Test Findings: Abnormal . Plan: Monitor . Interval: Same . 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
--- OUTSIDE RECORDS SUMMARY | 2023-09-14 22:12 | XMS_ITS | Encounter Summary ---
Author Name Unknown Organization [facility] Address [address] [place] [address] Care Team Providers Care Sales Executive Name Role Phone Ailin Zavala MD Unavailable [phone] Martina Strickland PA-C Primary Care Provider mAadeo King MD Unavailable [phone] Joseph Trivedi MD Unavailable [phone] Rene Grant MD Unavailable [phone] Encounter Details Date Type Department Care Team (Latest Contact Info) Description 07/02/2023 Travel Social History Tobacco Use Types Packs/Day [...] Description 09/20/2023 2:45 PM CDT Office Visit [facility] [address] 9 [facility] [facility] 9[address] [place] [phone] Amadeo King MD 420 [facility] 493 [place], [place] [address] 12/07/2023 3:10 PM CDT Office Visit [facility] [address] [facility] 9th Fl Clin 9A [place] [address] Emma Deshpande MD 516 [facility] [address] [place] [address] documented as of this encounter Visit Diagnoses Not on filedocumented in this encounter Care Teams Sales Executive Relationship Specialty Start Date End Date Martina Strickland PA-C PCP - General Physician Counselor Manager 07/19/19 Ailin Zavala MD Internal Medicine 07/28/11 Amadeo King MD [address] [place] [id number] Ophthalmology 12/22/19 Joseph Trivedi MD [facility] [address] [facility] [address] [place], [place] [address] Rheumatology 05/21/20 Rene Grant MD [address] [place] [address] 082545 Assigned Surgical Provider 09/12/22 documented as of this encounter
--- OUTSIDE RECORDS SUMMARY | 2023-09-14 22:12 | XMS_ITS | Encounter Summary ---
Author Name Unknown Organization [facility] Address [address] [place] [address] Care Team Providers Care Ship Boat Or Barge Mate Name Role Phone Ailin Zavala MD Unavailable [phone] Martina Strickland PA-C Primary Care Provider Amadeo King MD Unavailable [phone] Joseph Trivedi MD Unavailable [phone] Rene Grant MD Unavailable [phone] Encounter Details Date Type Department Care Team (Latest Contact Info) Description 07/05/2023 Travel Social History Tobacco Use Types Packs/Day [...] Office Visit [facility] [address] 9 [address] Clin 9A [place] [phone] Amadeo King MD 420 [facility] 493 [place], [place] [address] 12/07/2023 3:10 PM CDT Office Visit [facility] 516 [facility] 9th Fl Clin 9A [place] [address] Emma Deshpande MD 516 [facility] [address] [place] [address] documented as of this encounter Visit Diagnoses Not on filedocumented in this encounter Care Teams Ship Boat Or Barge Mate Relationship Specialty Start Date End Date Martina Strickland PA-C PCP - General Physician Data Security Coordinator 07/19/19 Ailin Zavala MD Internal Medicine 07/28/11 Amadeo King MD [address] [place] [address] Ophthalmology 12/22/19 Joseph Trivedi MD [facility] [address] [facility] 215 [place], [place] [address] Rheumatology 05/21/20 Rene Grant MD [address] [place] [address] [phone] Assigned Surgical Provider 09/12/22 documented as of this encounter
--- OUTSIDE RECORDS SUMMARY | 2023-09-14 22:12 | XMS_ITS | Encounter Summary ---
Author Name Unknown Organization [facility] Address [address] [place] [address] Care Team Providers Care Basket Patcher Name Role Phone Ailin Zavala MD Unavailable [phone] Martina Strickland PA-C Primary Care Provider Amadeo King MD Unavailable [phone] Joseph Trivedi MD Unavailable [phone] Rene Grant MD Unavailable [phone] Reason for Visit * Reason Onset Date Comments Symptoms 06/29/2023 White spot on ri ght cornea Encounter Details Date Type Department Care Team (Late st Contact Info) Description 06/29/2023 Telephone [facility] [address] 9[facility] 9A [place] [phone] Rene Grant MD [address] [place] [address] Symptoms (White spot on right cornea) Social History Tobacco Use Types Packs/Day Years [...] * Telephone Encounter - Sarai Ricks - 06/29/2023 10:13 AM CST Called and spoke to Paula Made her an appointment at [address] Grant on a sameday spot Confirmed appointment with Paula turner this appointment Sarai Ricks Communication Research Anthropologist on 06/29/2023 at 10:13 AM FASTENER * Telephone Encounter - Jacquelyn Huitron - 06/29/2023 9:01 AM CST Health Call Center Phone Message May a detailed message be left on voicemail: yes Reason for Call: Symptoms or Concerns If patient has red-flag symptoms, warm transfer to triage line Current symptom or concern: White spot on right cornea. Symptoms have been present for: 1 day(s) Has patient previously been seen for this? No By : Date: Are there any new or worsening symptoms? No Action Taken: Message routed to: [facility] Ophthalmology Travel Screening: Not Applicable FASTENER documented in this encounter Plan of Treatment Upcoming Encounters Date Type Department Care Team (Late st Contact Info) Description 09/20/2023 2:45 PM CDT Office Visit [facility] - [address] 9th Al Clin 9A [place] [address] Amadeo King MD [address] [place] [address] 12/07/2023 3:10 PM CDT Office Visit [facility] - [address] 9[address] Clin 9[address] [place] [address] Emma Deshpande MD 516 [facility] 911 [place], [place] [address] documented as of this encounter Visit Diagnoses Not on filedocumented in this encounter Care Teams Basket Patcher Relationship Specialty Start Date End Date Martina Strickland PA-C PCP - General Physician Procurement Accountant 07/19/19 Ailin Zavala MD Internal Medicine 07/28/11 Amadeo King MD [address] [place] [address] 493 [place], [place] [address] Ophthalmology 12/22/19 Joseph Trivedi MD [facility] [address] [facility] 215 [place], [place] [address] Rheumatology 05/21/20 Rene Grant MD [address] [place] [address] Assigned Surgical Provider 09/12/22 documented as of this encounter
--- OUTSIDE RECORDS SUMMARY | 2023-09-14 22:12 | XMS_ITS | Encounter Summary ---
Author Name Unknown Organization [facility] Address [address] [place] [address] Care Team Providers Care Tree Faller Name Role Phone Ailin Zavala MD Unavailable [phone] Martina Strickland PA-C Primary Care Provider Amadeo Kign MD Unavailable [phone] Joseph Trivedi MD Unavailable [phone] Rene Grant MD Unavailable [phone] Encounter Details Date Type Department Care Team (Latest Contact Info) Description 07/26/2023 Travel Social History Tobacco Use Types Packs/Day [...] Description 09/20/2023 2:45 PM CDT Office Visit [facility] Eye [address] 9 [address] Clin 9A [place] [phone] Amadeo King MD 420 [facility] 493 [place], [place] [address] 12/07/2023 3:10 PM CDT Office Visit [facility] 516 [facility] 9th Fl Clin 9A [place] [address] Emma Deshpande MD 516 [facility] [address] [place] [address] documented as of this encounter Visit Diagnoses Not on filedocumented in this encounter Care Teams Tree Faller Relationship Specialty Start Date End Date Martina Strickland PA-C PCP - General Physician Homeworker 07/19/19 Ailin Zavala MD Internal Medicine 07/28/11 Amadeo King MD [address] [place] [address] Ophthalmology 12/22/19 Joseph Trivedi MD [facility] [address] [facility] 215 [place], [place] [address] Rheumatology 05/21/20 Rene Grant MD [address] [place] [address] [id number] Assigned Surgical Provider 09/12/22 documented as of this encounter
--- OUTSIDE RECORDS SUMMARY | 2023-09-14 22:12 | XMS_ITS | Encounter Summary ---
Author Name Unknown Organization [place] Address [address] [place] [address]. [place] [address] Care Team Providers Care Permaculture Designer Name Role Phone Ailin Zavala MD Unavailable [phone] Martina Strickland PA-C Primary Care Provider Amadeo King MD Unavailable [phone] Joseph Trivedi MD Unavailable [phone] Rene Grant MD Unavailable [phone] Reason for Visit * Reason Comments Corneal Ulcer Follow Up 3 day follow up for Corneal ulcer right eye. My right eye is starting to feel better. It's not as itchy or sore as it was. Patient notes vision is stable each eye in the last couple days. I have been using Vaseline on my face from the bursitis from all the eye drops. It's making my face red and dry. Encounter Details Date Type Department Care Team (Late st Contact Info) Description 07/05/2023 12:30 PM ELECTRONIC MASKING SYSTEM OPERATOR Office Visit 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 Marcus. 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 Deshpande. Interval hx 07/05/2023 Chief Complaint(s) and History of Present Illness(es) Corneal Ulcer Follow Up In right eye. This started days ago. Charactertized as blurred vision. Associated symptoms include dryness (very). Negative for eye pain, tearing and itching. Treatments tried include eye drops and artificial tears. Additional comments: 3 day follow up for Corneal ulcer right eye. My right eye is starting to feel better. It's not as itchy or sore as it was. Patient notes vision is stable each eye in the last couple days. I have been using Vaseline on my face from the bursitis from all the eye drops. It's making my face red and dry. 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 Trivedi ([facility]) DM s -- was following at [facility] with Dr. 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/18) -- improved A/Cdepth and IOP s/p KLAL/PKP/lens explantation/scleral fixated lens right eye 04/18/2019 S/p conjunctival chalasis right eye 06/14/2019 Gtts: - Vancomycin Q1H during day, Q2-3H at night - Tobramycin Q1H during day, Q2-3H at night - Voriconazole Q1H during day, Q2-3H at night - PFAT Q1H - Prednisolone QID - [...] positive bacilli 4+ WBC seen Predominantly PMNs 07/02/23: ulcer is denser but not extending Bscan no endophthalmitis 07/05/23: smaller epi defect, condensed ulcer # s/p multiple PKP OD - recurrent [...] slow and risk of chronic epi defect PLAN: -Continue Vancomycin, tobramycin and voriconazol every hour day until Wednesday. Then decrease to q2 hours - hold off on RGP lens right [...] - S/p Yag Cap 05/2020 Follow up: Wednesday [place] FULL SERVICE SUPERVISOR Cydney Montgomery Resident Attending Physician Attestation: Complete documentation of historical [...] plan with the patient and family. I personally reviewed the ophthalmic test(s) associated with this encounter, agree with the interpretation(s) as documented by the resident/fellow, and have edited the corresponding report(s) as necessary.- Rene Reevesally signed by Rene Grant MD at 07/05/2023 2:09 PM ELECTRONIC MASKING SYSTEM OPERATOR documented in this encounter Nursing Notes * Pina Knapp - 07/05/2023 12:30 PM CST Chief Complaints and History of Present Illnesses Patient presents with Corneal Ulcer Follow Up 3 day follow up for Corneal ulcer right eye. My right eye is starting to feel better. It's not as itchy or sore as it was. Patient notes vision is stable each eye in the last couple days. I have been using Vaseline on my face from the bursitis from all the eye drops. It's making my face red and dry. Chief Complaint(s) and History of Present Illness(es) Corneal Ulcer Follow Up Laterality: right eye Onset: days ago Quality: blurred vision Associated symptoms: dryness (very). Negative for eye pain, tearing and itching Treatments tried: eye drops and artificial tears Comments: 3 day follow up for Corneal ulcer right eye. My right eye is starting to feel better. It's not as itchy or sore as it was. Patient notes vision is stable each eye in the last couple days. I have been using Vaseline on my face from the bursitis from all the eye drops. It's making my face red and dry. Comments Ocular meds: - Vancomycin Q1H during day, Q2-3H at night - Tobramycin Q1H during day, Q2-3H at night - Voriconazole Q1H during day, Q2-3H at night - PFAT Q1H - Prednisolone QID - Tacrolimus at bedtime - Sadia Q2H - Cellcept 500mg BID - Valtrex 500mg daily - Latanoprost at bedtime JANET Aldridge 12:53 PM 07/05/2023 TRONIC MASKING SYSTEM OPERATOR documented in this encounter Plan of Treatment Upcoming Encounters Date Type Department Care Team (Late st Contact Info) Description 09/20/2023 2:45 PM CDT Office Visit [facility] - [facility] [address] [facility] 9th Id Clin 9A [place] [phone] Amadeo King MD 420 [facility] 493 [place] [address] 12/07/2023 3:10 PM CDT Office Visit [facility] [address] [facility] 9th Fl Clin 9A [place] [phone] Emma Deshpande MD 516 [facility] [address] [place] [address] documented as of this encounter Procedures Procedure Name Priority Date/Time Associated Diagnosis Comments ULTRASOUND B-SCAN OD (RIGHT EYE) Routine 07/05/2023 2:05 PM ELECTRONIC MASKING SYSTEM OPERATOR Corneal ulcer of right eye SLIT LAMP PHOTOS OD (RIGHT EYE) Routine 07/05/2023 2:05 PM ELECTRONIC MASKING SYSTEM OPERATOR Corneal ulcer of right eye documented in this encounter Results * Ultrasound B-scan OD (right eye) (07/05/2023 2:05 PM ELECTRONIC MASKING SYSTEM OPERATOR) Rene Saravia MD - 07/05/2023 2:05 PM ELECTRONIC MASKING SYSTEM OPERATOR Patient cooperation: Reliable . Reliability of the test: Good . Test Findings: Normal . Interpretation: Normal . Interval: Same . Notes Vitreous floaters no endophthalmitis Rene Grant MD OPHTHALMOLOGY * Slit Lamp Photos OD (right eye) (07/05/2023 2:05 PM ELECTRONIC MASKING SYSTEM OPERATOR) Rene Saravia MD - 07/05/2023 2:05 PM ELECTRONIC MASKING SYSTEM OPERATOR Performed by: rp . Patient cooperation: Reliable . Reliability of the test: Good . Test Findings: Abnormal . Plan: Monitor . Interval: Better . 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
--- OUTSIDE RECORDS SUMMARY | 2023-09-14 22:12 | XMS_ITS | Encounter Summary ---
Author Name Unknown Organization [place] Address [address] [place] [address] Care Team Providers Care Double End Tenon Operator Name Role Phone Ailin Zavala MD Unavailable [phone] Martina Strickland PA-C Primary Care Provider Amadeo King MD Unavailable [phone] Joseph Trivedi MD Unavailable [phone] Rene Grant MD Unavailable [phone] Reason for Visit * Reason Comments Follow Up Central corneal ulce r of right eye Encounter Details Date Type Department Care Team (Late st Contact Info) Description 07/02/2023 3:00 PM STANDARDS ANALYST Office Visit [facility] Eye [address] 9[facility] Clin 9A [place] [address] Rene Grant MD [address] [place] [address] 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 Marcus. 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 Deshpande. Interval hx 07/02/2023 Chief Complaint(s) and History of Present Illness(es) Follow Up Additional comments: Central corneal ulcer of right eye Comments Patient complains of eye pain(rates 6/10) , floaters. Pt has seen improving Wednesday. since No flashes of light or light sensitivity. Pt would like a eye patch to keep cover while sleeping. Patient has been using Vancomycin, tobramycin and voriconazol every hour day and night right eye. 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 Trivedi ([facility]) DM s DR -- was following at [facility] with Dr. 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/18) -- improved A/Cdepth and IOP s/p KLAL/PKP/lens explantation/scleral fixated lens right eye 04/18/2019 S/p conjunctival chalasis right eye 06/14/2019 Gtts: Pred QID OD Tacrolimus 0.1% QHS OD (due to contact lens use) PF AT Q1H Sadia gtt 6x/day right eye Latanoprost at bedtime right eye Cellcept 500mg BID Valtrex 500mg po daily [...] denser but not extending Bscan no endophthalmitis # s/p multiple PKP OD - recurrent [...] with superior edema in the right eye PLAN: -Continue Vancomycin, tobramycin and voriconazol every hour day while awake and 2 during night - hold off on RGP lens right [...] Yag Cap 05/2020 Follow up: Wednesday [place] METALLURGICAL ENGINEERING TECHNICIAN Bscan Attending Physician Attestation: Complete documentation of historical [...] patient and family. - Rene Grant MD DARDS ANALYST documented in this encounter Plan of Treatment Upcoming Encounters Date Type Department Care Team (Late st Contact Info) Description 09/20/2023 2:45 PM CDT Office Visit [facility] [place] [id number] [facility] 9[facility] 9A [place] [address] Amadeo King MD 420 [facility] 493 [place] [address] 12/07/2023 3:10 PM CDT Office Visit [facility] [place] [id number] [facility] 9th [facility] 9A [place] [address] Emma Deshpande MD 516 [facility] 911 [place] [address] documented as of this encounter Procedures Procedure Name Priority Date/Time Associated Diagnosis Comments ULTRASOUND B-SCAN OD (RIGHT EYE) Routine 07/02/2023 4:01 PM STANDARDS ANALYST Central corneal ulcer of right eye documented in this encounter Results * Ultrasound B-scan OD (right eye) (07/02/2023 4:01 PM STANDARDS ANALYST) Narrative Rene Grant MD - 07/02/2023 4:53 PM STANDARDS ANALYST Patient cooperation: Reliable . Reliability of the test: Good . Test Findings: Normal . Interpretation: Normal . Plan: Monitor, Adjust medications . Interval: Initial . Rene Grant MD OPHTHALMOLOGY documented in this encounter Visit Diagnoses Diagnosis Central corneal ulcer of right eye- Primary Central corneal ulcer documented in this encounter Care Teams Double End Tenon Operator Relationship Specialty Start Date End Date Martina Strickland PA-C PCP - General Physician Phlebotomy Instructor 07/19/19 Ailin Zavala MD Internal Medicine 07/28/11 Amadeo King MD 420 [facility] 493 [place], [place] [address] Ophthalmology 12/22/19 Joseph Trivedi MD [facility] [address] [id number] Rheumatology 05/21/20 Rene Grant MD 516 [place], [place] [address] Assigned Surgical Provider 09/12/22 documented as of this encounter
--- OUTSIDE RECORDS SUMMARY | 2023-09-14 22:12 | XMS_ITS | Encounter Summary ---
Author Name Unknown Organization [place] Address [address] [place] [address] Care Team Providers Care Project Management Engineer Name Role Phone Ailin Zavala MD Unavailable [phone] Martina Strickland PA-C Primary Care Provider Amadeo King MD Unavailable [phone] Joseph Trivedi MD Unavailable [phone] Rene Grant MD Unavailable [phone] Encounter Details Date Type Department Care Team (Latest Contact Info) Description 08/22/2023 Travel Social History Tobacco Use Types Packs/Day [...] Description 09/20/2023 2:45 PM CDT Office Visit [facility] Eye [address] 9 [address] Clin 9A [place] [phone] Amadeo King MD 420 [facility] 493 [place], [place] [address] 12/07/2023 3:10 PM CDT Office Visit [facility] Eye [facility] [address] [facility] 9th Fl Clin 9A [place] [address] Emma Deshpande MD [address] [facility] [address] [place] [address] documented as of this encounter Visit Diagnoses Not on filedocumented in this encounter Care Teams Project Management Engineer Relationship Specialty Start Date End Date Martina Strickland PA-C PCP - General Physician Decontamination Technician 07/19/19 Ailin Zavala MD Internal Medicine 07/28/11 Amadeo Knig MD [address] [place] [phone] Ophthalmology 12/22/19 Joseph Trivedi MD [facility] [address] [facility] 215 [place], [place] [address] Rheumatology 05/21/20 Rene Gratn MD [address] [place] [id number] Assigned Surgical Provider 09/12/22 documented as of this encounter
--- OUTSIDE RECORDS SUMMARY | 2023-09-14 22:12 | XMS_ITS | Encounter Summary ---
Author Name Unknown Organization [place] Address [address] [place] [address] Care Team Providers Care Mechanic Chief Name Role Phone Ailin Zavala MD Unavailable Martina Strickland PA-C Primary Care Provider Amadeo King MD Unavailable [phone] Amadeo King MD Unavailable [phone] Joseph Trivedi MD Unavailable [phone] Rene Grant MD Unavailable Amadeo Winston MD Unavailable Amadeo Winston MD Unavailable Rene Grant MD Unavailable [phone] Rene Grant MD Unavailable Reason for Visit * Reason Onset Date Comments Refill Request 06/22/2022 prednisoLONE dick benitez (PRED FORTE) 1 % ophthalmic suspension Encounter Details Date Type Department Care Team (Late st Contact Info) Description 06/22/2022 [facility] Eye [address] 9 [address] Clin 9A [place] [phone] Rene Grant MD [address] [place] [address] Refill Request (prednisoLONE acetate (PRED FORTE) 1 % ophthalmic suspension) Social History Tobacco Use Types Packs/Day Years Used Date Smoking Tobacco: Never Smokeless Tobacco: Never Alcohol Use Standard Drinks/Week Comments No 0 (1 standard drink = 0.6 oz pur e alcohol) PHQ-2 Answer Date Recorded PHQ-2 Score 0 05/29/2021 Sex and Gender Information Value Date Recorded Sex Assigned at Female 2019 10:10 AM CDT Gender Identity Female 2019 10:10 AM CDT Sexual Orientation Straight 2019 10 :10 AM CDT COVID-19 Exposure Response Date Recorded In the last 10 days, have yo u been in contact with someone who was confirmed or suspected to have Coronavirus/COVID-19? No / Unsure 06/03/2022 2:32 PM PLANT TECHNICAL SPECIALIST documented as of this encounter Miscellaneous Notes * Telephone Encounter - Sarah Hebert RN - 06/22/2022 1:07 PM CST prednisoLONE acetate (PRED FORTE) 1 % ophthalmic suspension Last Written Prescription Date: 01/02/22 Last Fill Quantity: 10ml, # refills: 11 Last Office Visit : 06/03/22 Future Office visit: 09/25/22 Routing refill request to provider for review/approval because: request per pt call. Interim supply, waiting for mail order to arrive. requests 10 ml 0 rfs. T TECHNICAL SPECIALIST * Telephone Encounter - Ashley Paula - 06/22/2022 1:03 PM CST [facility] Phone Message May a detailed message be left on voicemail: yes Reason for Call: Medication Refill Request Has the patient contacted the pharmacy for the refill? Yes Name of medication being requested: prednisoLONE acetate (PRED FORTE) 1 % ophthalmic suspension Provider who prescribed the medication: Dr. Grant Pharmacy: [facility] Date medication is needed: JOSE MANUEL Patient called stating she will not have this medication until the from her mail order pharmacy and she is out. She is asking for an emergency refill. Action Taken: Other: eye Travel Screening: Not Applicable T TECHNICAL SPECIALIST documented in this encounter Plan of Treatment Upcoming Encounters Date Type Department Care Team (Late st Contact Info) Description 09/20/2023 2:45 PM CDT Office Visit [facility] [address] 9th [address] Clin 9A [place] [address] Amadeo King MD [address] [facility] 493 [place] [address] 12/07/2023 3:10 PM CDT Office Visit [facility] [address] 9th [address] Clin 9[address] [place] [phone] Emma Deshpande MD 516 [facility] [address] [place], [place] [address] documented as of this encounter Visit Diagnoses Diagnosis 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 documented in this encounter Care Teams Mechanic Chief Relationship Specialty Start Date End Date Martina Strickland PA-C PCP - General Physician Sales Account Manager 07/19/19 Ailin Zavala MD Internal Medicine 07/28/11 Amadeo King MD [address] [place] [address] 493 [place], [place] [address] Ophthalmology 12/22/19 Amadeo King MD [address] [facility] [address] [place] [address] Assigned PCP 04/07/20 06/02/23 Joseph Trivedi MD [facility] [address] [phone] Rheumatology 05/21/20 Rene Grant MD [address] [place] [address] Assigned Surgical Provider 04/04/22 08/21/22 Amadeo Winston MD [address] [place] [phone] Assigned Surgical Provider 08/22/22 08/28/22 Amadeo Winston MD [address] [place] [address] Assigned Surgical Provider 09/05/22 09/11/22 Rene Grant MD [address] [place] [id number] Assigned Surgical Provider 08/29/22 09/04/22 Rene Grant MD [address] [place] [address] Assigned Surgical Provider 09/12/22 documented as of this encounter
--- OUTSIDE RECORDS SUMMARY | 2023-09-14 22:12 | XMS_ITS | Encounter Summary ---
Author Name Unknown Organization [facility] Address [address] [place] [address] Care Team Providers Care Cook Syrup Maker Name Role Phone Ailin Zavala MD Unavailable [phone] Martina Strickland PA-C Primary Care Provider Amadeo King MD Unavailable [phone] Joseph Trivedi MD Unavailable [phone] Rene Grant MD Unavailable [phone] Reason for Visit * Reason Comments Follow Up Corneal ulcer of rig ht eye Encounter Details Date Type Department Care Team (Late st Contact Info) Description 07/09/2023 3:00 PM CABLE PLACER Office Visit [facility] Eye [address] 9[facility] Clin 9A [place] [address] Rene Grant MD [address] [place] [address] Corneal ulcer of right eye (Primary Dx); [...] Progress Notes * Rene Grant MD - 07/09/2023 3:00 PM CST CC: s/p multiple corneal transplants OD HPI: 57yo F referred by Dr. Marcus. 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 Deshpande. Interval hx 07/09/2023 Chief Complaint(s) and History of Present Illness(es) Interval hx 07/09/2023 Chief Complaint(s) and History of Present Illness(es) Follow Up Additional comments: Corneal ulcer of right eye Comments Patient states right eye is fine and is still having dry eyes . No pain or light sensitivity. Pt has been taking prescription drops as directed. 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 Trivedi ([facility]) DM s DR -- was following at [facility] with Dr. Llamas h/o Aqueous Misdirection [...] endophthalmitis 07/05/23: smaller epi defect, condensed ulcer 07/09/23: stable epi defect, larger size corneal haze # s/p multiple PKP OD - recurrent [...] PLAN: -Continue Vancomycin, tobramycin and voriconazol every 2 hours -plan for Prokera next visit. - hold off on RGP lens right eye due to corneal ulcer - continue PF AT Q1H right eye - prednisolone QID - continue tacrolimus to bedtime only while she is using RGP OD - continue Sadia q2H OD - continue CellCept 500 BID - continue Valtrex 500 mg daily - consider Prokera Wednesday if continues to have large non-healing epithelial defect - removed ~5 black and red fibrils from ulcer at slit lamp 07/09/23 #. Dry eyes OU - continue PF [...] S/p Yag Cap 05/2020 Follow up: Wednesday [place] ROTARY DUMP OPERATOR Cydney Madrid MD Cornea and External Disease Fellow [facility] E PLACER documented in this encounter Nursing Notes * Glenny Collins - 07/09/2023 3:00 PM CST Chief Complaints and History of Present Illnesses Patient presents with Follow Up Corneal ulcer of right eye Chief Complaint(s) and History of Present Illness(es) Follow Up Comments: Corneal ulcer of right eye Comments Patient states right eye is fine and is still having dry eyes . No pain or light sensitivity. Pt has been taking prescription drops as directed. Glenny Pack 3:02 PM July 09, 2023 E PLACER documented in this encounter Plan of Treatment Upcoming Encounters Date Type Department Care Team (Late st Contact Info) Description 09/20/2023 2:45 PM CDT Office Visit [place] [id number] [facility] 9th Co Clin 9A [place] [phone] Amadeo King MD [address] [place] [address] 12/07/2023 3:10 PM CDT Office Visit [facility] - [address] 9th Co Clin 9A [place] [address] Emma Deshpande MD 516 [facility] [address] [place], [place] [address] Pending Results Name Type Priority Associated Diagnoses Date /Time Slit Lamp Photos OD (right eye) Opht Imaging Routine Corneal ulcer of right eye 07/09/2023 3:50 PM CABLE PLACER documented as of this encounter Visit Diagnoses Diagnosis Corneal ulcer of right eye- Primary Corneal ulcer, unspecified 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
--- OUTSIDE RECORDS SUMMARY | 2023-09-14 22:12 | XMS_ITS | Encounter Summary ---
Author Name Unknown Organization [facility] Address [address] [place] [address] Care Team Providers Care Specialty Sales Consultant Name Role Phone Ailin Zavala MD Unavailable [phone] Martina Strickland PA-C Primary Care Provider Amadeo King MD Unavailable [phone] Joseph Trivedi MD Unavailable [phone] Rene Grant MD Unavailable [phone] Encounter Details Date Type Department Care Team (Latest Contact Info) Description 06/30/2023 Travel Social History Tobacco Use Types Packs/Day [...] Description 09/20/2023 2:45 PM CDT Office Visit [facility] [address] 9 [address] Clin 9A [place] [phone] Amadeo King MD 420 [facility] 493 [place], [place] [address] 12/07/2023 3:10 PM CDT Office Visit [facility] 516 [facility] 9th Fl Clin 9A [place] [address] Emma Deshpande MD 516 [facility] [address] [place] [address] documented as of this encounter Visit Diagnoses Not on filedocumented in this encounter Care Teams Specialty Sales Consultant Relationship Specialty Start Date End Date Martina Strickland PA-C PCP - General Physician Core Winding Operator 07/19/19 Ailin Zavala MD Internal Medicine 07/28/11 Amadeo King MD [address] [place] [address] Ophthalmology 12/22/19 Joseph Trivedi MD [facility] [address] [facility] 215 [place], [place] [address] Rheumatology 05/21/20 Rene Grant MD [address] [place] [address] 496715 Assigned Surgical Provider 09/12/22 documented as of this encounter
--- OUTSIDE RECORDS SUMMARY | 2023-09-14 22:12 | XMS_ITS | Encounter Summary ---
Author Name Unknown Organization [facility] Address [address] [place] [address] Care Team Providers Care Powder Press Operator Name Role Phone Ailin Zavala MD Unavailable [phone] Martina Strickland PA-C Primary Care Provider Amadeo King MD Unavailable [phone] Joseph Trivedi MD Unavailable [phone] Rene Grant MD Unavailable [phone] Encounter Details Date Type Department Care Team (Latest Contact Info) Description 08/09/2023 Travel Social History Tobacco Use Types Packs/Day [...] Description 09/20/2023 2:45 PM CDT Office Visit [facility] Eye [address] 9 [address] Clin 9A [place] [phone] Amadeo King MD 420 [facility] 493 [place], [place] [address] 12/07/2023 3:10 PM CDT Office Visit [facility] Eye [facility] 516 [facility] 9th Fl Clin 9A [place] [address] Emma Deshpande MD 516 [facility] [address] [place] [address] documented as of this encounter Visit Diagnoses Not on filedocumented in this encounter Care Teams Powder Press Operator Relationship Specialty Start Date End Date Martina Strickland PA-C PCP - General Physician Business Analyst 07/19/19 Ailin Zavala MD Internal Medicine 07/28/11 Amadeo King MD [address] [place] [phone] Ophthalmology 12/22/19 Joseph Trivedi MD [facility] [address] [facility] 215 [place], [place] [address] Rheumatology 05/21/20 Rene Grant MD [address] [place] [address] [id number] Assigned Surgical Provider 09/12/22 documented as of this encounter
--- OUTSIDE RECORDS SUMMARY | 2023-09-14 22:12 | XMS_ITS | Encounter Summary ---
Author Name Unknown Organization [facility] Address [address] [place] [address] Care Team Providers Care Conference Organizer Name Role Phone Ailin Zavala MD Unavailable [phone] Martina Strickland PA-C Primary Care Provider Amadeo King MD Unavailable [phone] Joseph Trivedi MD Unavailable [phone] Rene Grant MD Unavailable [phone] Reason for Visit * Reason Comments Corneal Ulcer Follow Up Encounter Details Date Type Department Care Team (Late st Contact Info) Description 2023 3:00 PM CDT Office Visit [facility] Eye [address] 9[facility] Clin 9A [place] [address] Rene Grant MD [address] [place] [address] Corneal ulcer of right eye (Primary Dx); [...] Progress Notes * Rene Grant MD - 2023 3:00 PM CDT CC: s/p multiple corneal transplants OD HPI: 57yo F referred by Dr. Marcus. 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 Deshpande. Interval history 07/21/23 patient presents for one week follow up right eye corneal ulcer. She feelslike the vision in her right eye is slowly improving. 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 Trivedi ([facility]) DM s DR -- was following at [facility] with Dr. Llamas h/o Aqueous Misdirection [...] stable epi defect, larger size corneal haze 07/14/23: patient feels better, exam is stable with mild clearing superiorly. Epi defect is same 07/21/23 smaller epi defect today, # s/p multiple PKP OD - recurrent [...] 07/14/23: prokera placed 07/21/23: prokera in place PLAN: -Continue fortified Vancomycin QID right eye - Continue fortified tobramycin QID right eye - Stop voriconazol - Placed Prokera 07/14/23 - hold off on RGP lens right [...] Yag Cap 05/2020 Follow up: Wednesday [place] TIME CLOCK INSPECTOR Cydney Montgomery MD PGY3 Ophthalmology Resident [facility] Attending Physician Attestation: Complete documentation of historical [...] documented in this encounter Nursing Notes * Tay Crawford - 2023 3:00 PM CDT Chief Complaints and History of Present Illnesses Patient presents with Corneal Ulcer Follow Up Chief Complaint(s) and History of Present Illness(es) Corneal Ulcer Follow Up Laterality: right eye Onset: sudden Severity: severe Frequency: intermittently Associated symptoms: dryness and headache. Negative for eye pain, flashes, floaters, itching and burning Pain scale: 0/10 Comments Paula is here to continue care for right eye corneal ulcer. She feels like right eye is slowly getting better. She feels discomfort off and on since last visit. Tay Crawford COT 3:11 PM 2023 documented in this encounter Plan of Treatment Upcoming Encounters Date Type Department Care Team (Late st Contact Info) Description 09/20/2023 2:45 PM CDT Office [facility] Eye [facility] 516 [facility] 9th Ri Clin 9A [place] [phone] Amadeo King MD 420 [facility] 493 [place], [place] [address] 12/07/2023 3:10 PM CDT Office Visit 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 documented in this encounter Care Teams Conference Organizer Relationship Specialty Start Date End Date Martina Strickland PA-C PCP - General Physician Bag Adjuster 07/19/19 Ailin Zavala MD Internal Medicine 07/28/11 Amadeo King MD 420 [facility] 493 [place], [place] [address] Ophthalmology 12/22/19 Joseph Trivedi MD [facility] [address] [facility] 215 [place] [address] Rheumatology 05/21/20 Rene Grant MD 516 [place] [address] Assigned Surgical Provider 09/12/22 documented as of this encounter
--- OUTSIDE RECORDS SUMMARY | 2023-09-14 22:12 | XMS_ITS | Encounter Summary ---
Author Name Unknown Organization [facility] Address [address] [place] [address] Care Team Providers Care Vocational Rehabilitation Counselor Name Role Phone Ailin Zavala MD Unavailable [phone] Martina Strickland PA-C Primary Care Provider Amadeo King MD Unavailable [phone] Joseph Trivedi MD Unavailable [phone] Rene Grant MD Unavailable [phone] Reason for Visit * Reason Comments Medication Refill Encounter Details Date Type Department Care Team (Late st Contact Info) Description 07/10/2023 Refill [facility] Clinic [facility] 516 [facility] 9th La Clin 9A [place] [phone] Amadeo Winston MD 420 [place], [place] [phone] Medication Refill Social History Tobacco Use Types Packs/Day Years [...] Visit [facility] Eye [facility] 516 [facility] 9th La Clin 9A [place] [address] Amadeo King MD 420 [facility] 493 [place] [address] 12/07/2023 3:10 PM CDT Office Visit [facility] Eye [facility] 516 [facility] 9th La Clin 9A [place] [phone] Emma Deshpande MD 516 [facility] [address] 911 [place], [place] [address] documented as of this encounter Visit Diagnoses 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
--- OUTSIDE RECORDS SUMMARY | 2023-09-14 22:12 | XMS_ITS | Encounter Summary ---
Author Name Unknown Organization [facility] Address [address] [place] [address] Care Team Providers Care Cosmetic Sales Name Role Phone Ailin Zavala MD Unavailable [phone] Martina Strickland PA-C Primary Care Provider Amadeo King MD Unavailable [phone] Joseph Trivedi MD Unavailable [phone] Rene Grant MD Unavailable [phone] Reason for Visit * Reason Onset Date Comments Question 07/16/2023 Ointment Encounter Details Date Type Department Care Team (Late st Contact Info) Description 07/16/2023 Telephone [facility] Eye [address] 9[facility] Clin 9A [place] [phone] Rene Grant MD [address] [place] [address] [phone] Question (Ointment) Social History Tobacco Use Types Packs/Day Years [...] encounter Miscellaneous Notes * Telephone Encounter - Susi Ash COT - 07/16/2023 9:53 AM CST Spoke with patient and let patient her know per okay to continue taking tacrolimus as prescribed. Susi ash 07/16/2023 9:55 AM DIEM INTERPRETER * Telephone Encounter - Callie Norwood - 07/16/2023 9:10 AM CST [facility] Phone Message May a detailed message be left on voicemail: yes Reason for Call: Medication Question or concern regarding medication Prescription Clarification Name of Medication: tacrolimus (PROTOPIC) 0.1 % external ointment Prescribing Provider: Dr. Grant Pharmacy: N/A What on the order needs clarification? 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 She is wondering if Dr. Grant would like her to continue using this ointment or if she should hold it for now. Please call pt to discuss. Thank you. Action Taken: Message routed to: [facility] EYE Travel Screening: Not Applicable DIEM INTERPRETER documented in this encounter Plan of Treatment Upcoming Encounters Date Type Department Care Team (Late st Contact Info) Description 09/20/2023 2:45 PM CDT Office Visit [facility] [place] [address] [facility] 9th [facility] 9A [place] [address] Amadeo King MD [address] [place] [id number] 12/07/2023 3:10 PM CDT Office Visit [facility] - [address] 9[facility] 9A [place] [address] Emma Deshpande MD 516 [facility] [address] 911 [place], [place] [phone] documented as of this encounter Visit Diagnoses Not on filedocumented in this encounter Care Teams Cosmetic Sales Relationship Specialty Start Date End Date Martina Strickland PA-C PCP - General Physician Credit Rating Inspector 07/19/19 Ailin Zavala MD Internal Medicine 07/28/11 Amadeo King MD 420 [facility] 493 [place], [place] [address] Ophthalmology 12/22/19 Joseph Trivedi MD [facility] [address] [facility] 215 [place], [place] [address] Rheumatology 05/21/20 Rene Grant MD 6 [place], [place] [address] Assigned Surgical Provider 09/12/22 documented as of this encounter
--- OUTSIDE RECORDS SUMMARY | 2023-09-14 22:12 | XMS_ITS | Encounter Summary ---
Author Name Unknown Organization [place] [facility] Address [address] [place] [address] Care Team Providers Care Fish Stringer Assembler Name Role Phone Ailin Zavala MD Unavailable [phone] Martina Strickland PA-C Primary Care Provider Amadeo King MD Unavailable [phone] Joseph Trivedi MD Unavailable [phone] Rene Grant MD Unavailable [phone] Reason for Visit * Reason Comments Follow Up Corneal evaluation r ight eye Encounter Details Date Type Department Care Team (Late st Contact Info) Description 08/23/2023 3:00 PM CDT Office Visit [facility] [place] 589376 [facility] 9th De Clin 9A [place] [address] Rene Grant MD 6 [place], [place] [address] Amadeo King MD 420 [facility] 493 [place], [place] [address] Corneal ulcer of right eye (Primary Dx); 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 Marcus. 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 Deshpande. Interval Hx: s/p KLAL/PKP/lens explantation/scleral fixated lens OD, and s/p conj chalasis excision06/14/2019. Has been following with Dr. 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 with Dr. 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/18) -- improved A/Cdepth and IOP s/p KLAL/PKP/lens explantation/scleral fixated lens right eye 04/18/2019 S/p conjunctival chalasis right eye 06/14/2019 Gtts: Pred QID OD Moxifloxacin TID OD Tacrolimus 0.1% QHS OD (due to [...] + PKP PLAN: - replace BCL OD 08/23/23 - continue PF AT Q1H right eye - Increase Prednisolone BID right eye - decrease moxifloxacin to BID OD - continue tacrolimus to bedtime only while she is using RGP OD - recommend punctal plug RLL 08/23/23 - discussed possible [...] - S/p Yag Cap 05/2020 Follow up: 1 week Cydney Montgomery MD PGY3 Ophthalmology Resident [facility] Attending Physician Attestation: Complete documentation of historical [...] I was present for the entire procedure. - Amadeo King MD documented in this encounter Nursing Notes * Julissa Billy COT - 08/23/2023 3:00 PM CDT Chief Complaints and History of Present Illnesses Patient presents with Follow Up Corneal evaluation right eye Chief Complaint(s) and History of Present Illness(es) Follow Up Laterality: right eye Course: stable Associated symptoms: dryness, redness and headache. Negative for eye pain Treatments tried: eye drops, artificial tears and ointment Pain scale: 0/10 Comments: Corneal evaluation right eye Comments She states that her vision has seemed stable in both eyes since her last eye exam. She is using: - PF Artificial tears 30-60 minutes right eye - prednisolone QID - tacrolimus ointment at night to bedtime - CellCept 500 BID - Latanoprost at bedtime - meloxicam JANET Leon 3:21 PM August 23, 2023 documented in this encounter Plan of Treatment Upcoming Encounters Date Type Department Care Team (Late st Contact Info) Description 09/20/2023 2:45 PM CDT Office Visit [facility] [place] 457[address] [facility] 9th De Clin 9A [place] [phone] Amadeo King MD 420 [facility] 493 [place], [place] [address] 12/07/2023 3:10 PM CDT Office Visit [facility] Emergency Department 516 [facility] 9th De Clin 9A [place] [phone] Emma Deshpande MD 516 [facility] [address] 911 [place], [place] [address] documented as of this encounter Procedures Procedure Name Priority Date/Time Associated Diagnosis Comments PUNCTAL CLOSURE, PLUGS Routine 08/23/2023 4:31 PM CDT 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 documented in this encounter Results * Punctal Closure, Plugs (08/23/2023 4:31 PM CDT) Narrative Amadeo King MD - 08/23/2023 4:31 PM CDT Sign in/Time Out: Correct patient, Correct procedure, Correct site . Preprocedure Medication: Proparacaine 2% solution . Punctal Plug Insertion #1 Brand: SuperFLex 0.9 . Location: Right lower . Ref #: [id number]. Lot #: [id number] . 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
--- OUTSIDE RECORDS SUMMARY | 2023-09-14 22:12 | XMS_ITS | Encounter Summary ---
Author Name Unknown Organization [facility] Address [address] [place] [address] Care Team Providers Care Medicine Aide Name Role Phone Ailin Zavala MD Unavailable [phone] Martina Strickland PA-C Primary Care Provider Amadeo King MD Unavailable [phone] Joseph Trivedi MD Unavailable [phone] Rene Grant MD Unavailable [phone] Reason for Visit * Reason Comments Follow Up Corneal ulcer of rig ht eye Encounter Details Date Type Department Care Team (Late st Contact Info) Description 08/09/2023 3:00 PM CDT Office Visit [facility] - [address] 9[facility] Clin [address] [place] [address] Rene Grant MD [address] [place] [address] Corneal ulcer of right eye (Primary Dx); [...] Progress Notes * Rene Grant MD - 08/09/2023 3:00 PM CDT CC: s/p multiple corneal transplants OD HPI: 57yo F referred by Dr. Marcus. 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 Deshpande. 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 Trivedi ([facility]) DM s DR -- was following at [facility] with Dr. 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/18) -- improved A/Cdepth and IOP s/p KLAL/PKP/lens explantation/scleral fixated lens right eye 04/18/2019 S/p conjunctival chalasis right eye 06/14/2019 Gtts: - Moxi TID - Voriconazole stopped 07/14/23 - PFAT Q1H [...] positive bacilli 4+ WBC seen Predominantly PMNs 08/09/23: stable epi defect, inferior clearing cornea but dense superior scar is stable # s/p multiple PKP OD - recurrent [...] defect on top of the scarred cornea 08/09/23 non healing defect, BCL in place PLAN: Patient as LSCD again following the infection and may need a new KLAL with PKP. Will refer to Dr King for management since he had the first surgery done BCL in place, will keep it there - hold off on RGP lens right eye due to corneal ulcer - continue PF AT Q1H right eye -continue moxi QID - prednisolone QID - continue tacrolimus to [...] weeks heaven and 1 month Christine LACEY SIGNAL PROCESSING ENGINEER Attending Physician Attestation: Complete documentation of historical [...] documented in this encounter Nursing Notes * Soledad Winston - 08/09/2023 3:00 PM CDT Chief Complaints and History of Present Illnesses Patient presents with Follow Up Corneal ulcer of right eye Chief Complaint(s) and History of Present Illness(es) Follow Up Comments: Corneal ulcer of right eye Comments Pt states some improvement in the right eye Pt states no pain today No tearing or mattering No AM crusting Soledad Winston COT 3:11 PM August 09, 2023 documented in this encounter Miscellaneous Notes * Addendum Note - Demetrius Castrejon MD - 08/09/2023 3:00 PM CDTAddended by: DEMETRIUS CASTREJON on: 08/09/2023 04:02 PM Modules accepted: Orders documented in this encounter Plan of Treatment Upcoming Encounters Date Type Department Care Team (Late st Contact Info) Description 09/20/2023 2:45 PM CDT Office Visit [facility] - [facility] [address] [facility] 9th Fl Clin [address] [place] [phone] Amadeo King MD 420 [facility] 493 [place], [place] [id number] 12/07/2023 3:10 PM CDT Office Visit [facility] - [facility] [address] [facility] 9[address] Fl Clin [address] [place] [phone] Emma Deshpande MD [address] [facility] [address] [place], [place] [address] Scheduled Orders Name Type Priority Associated Diagnoses Orde r Schedule CBC with Platelets & Differential Lab Panel Routine 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 Expected: 08/09/2023 (Approximate), Expires: 11/07/2023 Comprehensive metabolic panel Lab Routine 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 Expected: 08/09/2023 (Approximate), Expires: 11/07/2023 documented as of this encounter Visit Diagnoses Diagnosis Corneal ulcer of right eye- Primary Corneal ulcer, unspecified 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
--- OUTSIDE RECORDS SUMMARY | 2023-09-14 22:12 | XMS_ITS | Encounter Summary ---
Author Name Unknown Organization [facility] Address [address] [place] [address] Care Team Providers Care Shift Lab Technician Name Role Phone Ailin Zavala MD Unavailable [phone] Martina Strickland PA-C Primary Care Provider Amadeo King MD Unavailable [phone] Joseph Trivedi MD Unavailable [phone] Rene Grant MD Unavailable [phone] Encounter Details Date Type Department Care Team (Latest Contact Info) Description 07/09/2023 Travel Social History Tobacco Use Types Packs/Day [...] Description 09/20/2023 2:45 PM CDT Office Visit [facility] [address] [place] [phone] Amadeo King MD [address] [facility] 493 [place], [place] [address] 12/07/2023 3:10 PM CDT Office Visit [facility] [address] [facility] 9th Fl Clin [address] [place] [address] Emma Deshpande MD [address] [facility] [address] [place] [address] documented as of this encounter Visit Diagnoses Not on filedocumented in this encounter Care Teams Shift Lab Technician Relationship Specialty Start Date End Date Martina Strickland PA-C PCP - General Physician Beam Worker 07/19/19 Ailin Zavala MD Internal Medicine 07/28/11 Amadeo King MD [address] [place] [address] Ophthalmology 12/22/19 Joseph Trivedi MD [facility] [address] [facility] 215 [place], [place] [address] Rheumatology 05/21/20 Rene Grant MD [address] [place] [address]405 Assigned Surgical Provider 09/12/22 documented as of this encounter
--- OUTSIDE RECORDS SUMMARY | 2023-09-14 22:12 | XMS_ITS | Encounter Summary ---
Author Name Unknown Organization [facility] Address [address] [place] [address] Care Team Providers Care Mortising Machine Operator Name Role Phone Ailin Zavala MD Unavailable [phone] Martina Strickland PA-C Primary Care Provider Amadeo King MD Unavailable [phone] Joseph Trivedi MD Unavailable [phone] Rene Grant MD Unavailable [phone] Encounter Details Date Type Department Care Team (Latest Contact Info) Description 07/14/2023 Travel Social History Tobacco Use Types Packs/Day [...] Visit [facility] [address] Clin [address] [place] [phone] Amadeo King MD 420 [facility] 493 [place], [place] [address] 12/07/2023 3:10 PM CDT Office Visit [facility] Department 516 [facility] 9th Fl Clin [address] [place] [address] Emma Deshpande MD 516 [facility] [address] [place] [address] documented as of this encounter Visit Diagnoses Not on filedocumented in this encounter Care Teams Mortising Machine Operator Relationship Specialty Start Date End Date Martina Strickland PA-C PCP - General Physician Front Office Help 07/19/19 Ailin Zavala MD Internal Medicine 07/28/11 Amadeo King MD [address] [place] [id number] Ophthalmology 12/22/19 Joseph Trivedi MD [facility] [address] [facility] 215 [place], [place] [address] Rheumatology 05/21/20 Rene Grant MD [address] [place] [address] [id number] Assigned Surgical Provider 09/12/22 documented as of this encounter
--- OUTSIDE RECORDS SUMMARY | 2023-09-14 22:12 | XMS_ITS | Encounter Summary ---
Author Name Unknown Organization [facility] Address [address] [place] [address] Care Team Providers Care Cigar Machine Feeder Name Role Phone Ailin Zavala MD Unavailable [phone] Martina Strickland PA-C Primary Care Provider Amadeo King MD Unavailable [phone] Joseph Trivedi MD Unavailable [phone] Rene Grant MD Unavailable [phone] Reason for Visit * Reason Comments Corneal Ulcer Follow Up Encounter Details Date Type Department Care Team (Late st Contact Info) Description 07/14/2023 2:45 PM SALES [employer]OC Office Visit [facility] [address] 9[facility] Clin 9A [place] [address] Rene Grant MD [address] [place] [address] Corneal ulcer of right eye (Primary Dx); Persistent epithelial defect of right cornea Social History Tobacco Use Types Packs/Day Years [...] Progress Notes * Rene Grant MD - 07/14/2023 2:45 PM CST CC: s/p multiple corneal transplants OD HPI: 57yo F referred by Dr. Marcus. 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 Deshpande. Interval hx 07/14/2023 Interval hx 07/14/2023 Chief Complaint(s) and History of Present Illness(es) Corneal Ulcer Follow Up In right eye. 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 Trivedi ([facility]) DM s -- was following at [facility] with Dr. Llamas h/o Aqueous Misdirection s/p [...] mild clearing superiorly. Epi defect is same # s/p multiple PKP OD - recurrent [...] risk of chronic epi defect PLAN: -Continue fortified Vancomycin QID right eye [...] Yag Cap 05/2020 Follow up: Wednesday [place] STABLE HAND Cydney Madrid MD Cornea and External Disease Fellow [facility] Attending Physician Attestation: Complete documentation of historical [...] family. I was present for the entire procedure(s). - Rene Grant M.D documented in this encounter Plan of Treatment Upcoming Encounters Date Type Department Care Team (Late st Contact Info) Description 09/20/2023 2:45 PM CDT Office Visit [facility] Department [address] [facility] 9th Pr Clin 9A [place] [phone] Amadeo King MD 420 [facility] 493 [place] [address] 12/07/2023 3:10 PM CDT Office Visit [facility] [address] [facility] 9th Fl Clin 9[address] [place] [phone] Emma Deshpande MD 516 [facility] [address] [place], [place] [address] documented as of this encounter Procedures Procedure Name Priority Date/Time Associated Diagnosis Comments AMNIOTIC MEMBRANE NON SUTURE OD Routine 07/14/2023 10:10 PM [employer]ES [employer]OC 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 documented in this encounter Results * Amniotic Membrane Non Suture OD (07/14/2023 10:10 PM SALES [employer]OC) Rene Saravia MD - 07/14/2023 10:10 PM SALES [employer] Time out performed at: 3:21 PM . Preprocedure Medication: Proparacaine 2% solution . Plan: Monitor . Attending assisted by: Fellow . Notes Estuardo hart 2025-04-05 [id number] Cydney Madrid MD OPHTHALMOLOGY documented in this encounter Visit Diagnoses Diagnosis Corneal ulcer of right eye- Primary Corneal ulcer, unspecified Persistent epithelial defect of right cornea documented in this encounter Care Teams Cigar Machine Feeder Relationship Specialty Start Date End Date Martina Strickland PA-C PCP - General Physician Stick Roller 07/19/19 Ailin Zavala MD Internal Medicine 07/28/11 Amadeo King MD 420 [facility] 493 [place], [place] [address] Ophthalmology 12/22/19 Joseph Trivedi MD [facility] 7[address] [facility] 215 [place], [place] [address] Rheumatology 05/21/20 Rene Grant MD 6 [place] [address] Assigned Surgical Provider 09/12/22 documented as of this encounter
--- OUTSIDE RECORDS SUMMARY | 2023-09-14 22:12 | XMS_ITS | Encounter Summary ---
Author Name Unknown Organization [facility] Address [address] [place] [address] Care Team Providers Care Disease Management Nurse Name Role Phone Ailin Zavala MD Unavailable Martina Strickland PA-C Primary Care Provider Amadeo King MD Unavailable [phone] Joseph Trivedi MD Unavailable [phone] Rene Grant MD Unavailable [phone] Reason for Visit * Reason Comments Follow Up White spot right eye Encounter Details Date Type Department Care Team (Late st Contact Info) Description 06/30/2023 9:30 AM SALES RECRUITING COORDINATOR Office Visit [facility] [place] [address] [facility] 9[facility] Clin [address] [place] [phone] Amadeo Winston MD [address] [place], [place] [address] Rene Grant MD 6 [place], [place] [phone] Central corneal ulcer of right eye (Primary [...] Progress Notes * Rene Grant MD - 06/30/2023 9:30 AM CST CC: s/p multiple corneal transplants OD HPI: 57yo F referred by Dr. Marcus. 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 Deshpande. Interval Hx: s/p KLAL/PKP/lens explantation/scleral fixated lens OD, and s/p conj chalasis excision06/14/2019. Patient complains of really dry eyes, scratchy, headaches, irritation right eye.Ongoing since Wednesday and worsening since. Artificial tears helps for short period of time and feels like ointments feels the best. No pain or light sensitivity. 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 Trivedi ([facility]) JAMAL s -- was following at [facility] with Dr. Llamas h/o Aqueous Misdirection [...] prn) Stopped due to surface irritation A/P: #new corneal ulcer right eye Noticed 3 days ago High risk of fungal infection due to hx of KLAL Plan Cultures taken today Start Vancomycin, tobramycin and voriconazol every hour day and night # s/p multiple PKP OD - recurrent [...] superior edema in the right eye PLAN: - hold off on RGP lens right [...] Yag Cap 05/2020 Follow up: Wednesday [place] TELEPHONE CLEANER Claudine Montgomery MD Resident Attending Physician Attestation: Complete documentation of [...] and have edited the corresponding report(s) as necessary. I was present for the entire procedure(s). - Rene Grant M.D S RECRUITING COORDINATOR documented in this encounter Nursing Notes * Glenny Collins - 06/30/2023 9:30 AM CST Chief Complaints and History of Present Illnesses Patient presents with Follow Up White spot right eye Chief Complaint(s) and History of Present Illness(es) Follow Up Comments: White spot right eye Comments Patient complains of really dry eyes, scratchy, headaches, irritation right eye.Ongoing since Wednesday and worsening since. Artificial tears helps for short period of time and feels like ointments feels the best. No pain or light sensitivity. Patient has been using latanoprost at bedtime, prednisoLONE acetate 4x a day , and SADIA 6x a day right eye. Glenny Pack 9:53 AM June 30, 2023 S RECRUITING COORDINATOR documented in this encounter Plan of Treatment Upcoming Encounters Date Type Department Care Team (Late st Contact Info) Description 09/20/2023 2:45 PM CDT Office Visit [address] In Clin [address] [place] [address] Amadeo King MD 420 [facility] [address] [place], [place] [address] 12/07/2023 3:10 PM CDT Office Visit [facility] 516 [facility] 9th Fl Clin [address] [place] [phone] Emma Deshpande MD 516 [facility] [address] [place] [address] documented as of this encounter Procedures Procedure Name Priority Date/Time Associated Diagnosis Comments CORNEAL CULTURE OD (RIGHT EYE) Routine 06/30/2023 11:22 AM SALES RECRUITING COORDINATOR Central corneal ulcer of right eye SLIT LAMP PHOTOS OD (RIGHT EYE) Routine 06/30/2023 11:22 AM SALES RECRUITING COORDINATOR Central corneal ulcer of right eye AEROBIC BACTERIAL CULTURE ROUTINE Routine 06/30/2023 11:00 AM SALES RECRUITING COORDINATOR Central corneal ulcer of right eye FUNGAL OR YEAST CULTURE ROUTINE Routine 06/30/2023 11:00 AM SALES RECRUITING COORDINATOR Central corneal ulcer of right eye AMOEBA CULTURE Routine 06/30/2023 11:00 AM SALES RECRUITING COORDINATOR Central corneal ulcer of right eye TAYLOR PREP Routine 06/30/2023 11:00 AM SALES RECRUITING COORDINATOR Central corneal ulcer of right eye GRAM STAIN Routine 06/30/2023 11:00 AM SALES RECRUITING COORDINATOR Central corneal ulcer of right eye ANAEROBIC BACTERIAL CULTURE ROUTINE Routine 06/30/2023 11:00 AM SALES RECRUITING COORDINATOR Central corneal ulcer of right eye documented in this encounter Results * Corneal Culture OD (right eye) (06/30/2023 11:22 AM SALES RECRUITING COORDINATOR) Rene Saravia MD - 06/30/2023 11:22 AM SALES RECRUITING COORDINATOR Sign in/Time Out: Sign in communication completed, [...] complications . Rene Grant MD OPHTHALMOLOGY * Slit Lamp Photos OD (right eye) (06/30/2023 11:22 AM SALES RECRUITING COORDINATOR) Rene Saravia MD - 06/30/2023 11:22 AM SALES RECRUITING COORDINATOR Performed by: EG . Patient cooperation: Reliable . Reliability of the test: Good . Test Findings: Abnormal . Plan: Monitor . Interval: Initial . Notes Corneal ulcer Rene Grant MD OPHTHALMOLOGY * (ABNORMAL) Gram stain (06/30/2023 11:00 AM SALES RECRUITING COORDINATOR) Gram Stain Result 4+ Gram positive cocci(A) 06/30/2023 2:09 PM SALES RECRUITING COORDINATOR [facility] Gram Stain Result 4+ Gram negative bacilli(A) 06/30/2023 2:09 PM SALES RECRUITING COORDINATOR [facility] Gram Stain Result 2+ Gram positive bacilli(A) 06/30/2023 2:09 PM SALES RECRUITING COORDINATOR [facility] Gram Stain Result 4+ WBC seen(A) 06/30/2023 2:09 PM SALES RECRUITING COORDINATOR [facility] Comment:Predominantly PMNs Tissue STRUCTURE OF CORNEA OF RIGHT EYE / Unknown Non-blood Collection / Unknown 06/30/2023 11:00 AM SALES RECRUITING COORDINATOR 06/30/2023 12:42 PM SALES RECRUITING COORDINATOR Narrative [facility] - 06/30/2023 2:09 PM SALES RECRUITING COORDINATOR Rene Grant MD LAB - MICRO GENERAL ORDERABLES [facility] Di[facility] Lab [address] [facility], [address] [place] [address], [place] [phone] * Parasite Culture (06/30/2023 11:00 AM SALES RECRUITING COORDINATOR) Culture Negative for Amoebae after 10 days of incubation BHAVIN 07/10/2023 7:26 AM SALES RECRUITING COORDINATOR [facility] Direct Stain Negative for Amoebae 07/10/2023 7:26 AM SALES RECRUITING COORDINATOR [facility] Comment:Results reviewed by Fabricio Monterroso, Ph.D., Charge Account Clerk Slat Basket Top Maker. 06/30/23 Tissue STRUCTURE OF CORNEA OF RIGHT EYE / Unknown Non-blood Collection / Unknown 06/30/2023 11:00 AM SALES RECRUITING COORDINATOR 06/30/2023 12:42 PM SALES RECRUITING COORDINATOR Rene Grant MD LAB - MICRO GENERAL ORDERABLES [facility] Inf. Diseases Di[facility]. Lab [address] [facility], Room [address] [address] [phone] * Fungus Culture, non-blood (06/30/2023 11:00 AM SALES RECRUITING COORDINATOR) Culture No Growth BHAVIN 07/28/2023 8:33 AM CDT [facility] Tissue STRUCTURE OF CORNEA OF RIGHT EYE / Unknown Non-blood Collection / Unknown 06/30/2023 11:00 AM SALES RECRUITING COORDINATOR 06/30/2023 12:41 PM SALES RECRUITING COORDINATOR Rene Grant MD LAB - MICRO GENERAL ORDERABLES [facility] Inf. Diseases Di[facility]. Lab [address] [facility], [address] [phone] * Anaerobic bacterial culture (06/30/2023 11:00 AM SALES RECRUITING COORDINATOR) Culture No anaerobic organisms isolated BHAVIN 07/07/2023 10:49 AM SALES RECRUITING COORDINATOR [facility] Tissue STRUCTURE OF CORNEA OF RIGHT EYE / Unknown Non-blood Collection / Unknown 06/30/2023 11:00 AM SALES RECRUITING COORDINATOR 06/30/2023 12:42 PM SALES RECRUITING COORDINATOR Rene Grant MD LAB - MICRO GENERAL ORDERABLES [facility] Inf. Diseases Di[facility]. Lab [address] [facility], [address] [address], [place] [phone] * Taylor prep (06/30/2023 11:00 AM SALES RECRUITING COORDINATOR) TAYLOR Preparation No fungal elements seen 06/30/2023 2:04 PM SALES RECRUITING COORDINATOR [facility] TAYLOR Preparation Reference Range: No fungal elements seen. 06/30/2023 2:04 PM SALES RECRUITING COORDINATOR [facility] Tissue STRUCTURE OF CORNEA OF RIGHT EYE / Unknown Non-blood Collection / Unknown 06/30/2023 11:00 AM SALES RECRUITING COORDINATOR 06/30/2023 12:41 PM SALES RECRUITING COORDINATOR Rene Grant MD LAB - MICRO GENERAL ORDERABLES Performing Organization Address [facility] Co de Phone Number [facility] Inf. Diseases Diag. Lab [address] [facility], [address] [address], [place] [phone] * (ABNORMAL) Tissue Aerobic Bacterial Culture Routine Without Gram Stain (06/30/2023 11:00 AM SALES RECRUITING COORDINATOR) Culture 15-50 CFU Granulicatella adiacens(A) BHAVIN 07/04/2023 10:10 AM SALES RECRUITING COORDINATOR [facility] Tissue STRUCTURE OF CORNEA OF RIGHT EYE / Unknown Non-blood Collection / Unknown 06/30/2023 11:00 AM SALES RECRUITING COORDINATOR 06/30/2023 12:41 PM SALES RECRUITING COORDINATOR Narrative Organism Antibiotic Method Susceptibility Granulicatella adiacens [...] - MICRO GENERAL ORDERABLES [facility] Inf. Diseases Di[facility]. 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
--- OUTSIDE RECORDS SUMMARY | 2023-09-14 22:13 | XMS_ITS | Encounter Summary ---
Author Name Unknown Organization [facility] Address [address] [place] [address] Care Team Providers Care Bilingual Customer Service Specialist Name Role Phone Ailin Zavala MD Unavailable [phone] Martina Strickland PA-C Primary Care Provider Amadeo King MD Unavailable + 5-0 Claudia Marcus MD Unavailable [phone] Amadeo King MD Unavailable + 5-0 Joseph Trivedi MD Unavailable [phone] Claudia Marcus MD Unavailable [phone] Emma Deshpande MD Unavailable + 2-0 Kishan Spain OD Unavailable +[phone] Emma Deshpande MD Unavailable + [phone] Kihsan Spain OD Unavailable +[phone] Emma Deshpande MD Unavailable + 20 Rene Grant MD Unavailable +[phone] Amadeo Winston MD Unavailable +[phone] Amadeo Winston MD Unavailable +[phone] Rene Grant MD Unavailable +-[phone] Rene Grant MD Unavailable +[phone] Reason for Visit * Reason Onset Date Comments Call Back 10/09/2019 Appt tm at 11:30 Encounter Details Date Type Department Care Team (Late st Contact Info) Description 10/09/2019 Telephone [facility] Ophthalmology [address] [facility] [address] 4th [place] [address] Amadeo King MD 420 [facility] SE [facility] 493 [place], [place] [phone] Call Back (Appt tm at 11:30 ) Social History Tobacco Use Types Packs/Day Years Used Date Smoking Tobacco: Never Smokeless Tobacco: Never Alcohol Use Standard Drinks/Week Comments No 0 (1 standard drink = 0.6 oz pur e alcohol) PHQ-2 Answer Date Recorded PHQ-2 Score 0 11/22/2018 Sex and Gender Information Value Date Recorded Sex Assigned at Female 2019 10:10 AM CDT Gender Identity Female 2019 10:10 AM CDT Sexual Orientation Straight 2019 10 :10 AM CDT COVID-19 Exposure Response Date Recorded In the last month, have you been in contact with someone who was confirmed or suspected to have Coronavirus / COVID-19? No / Unsure 10/10/2019 8:02 AM CDT documented as of this encounter Miscellaneous Notes * Telephone Encounter - Santino Leon - 10/09/2019 2:21 PM CDT [facility] Call Center Phone Message May a detailed message be left on voicemail: yes Reason for Call: Other: Pt called and was not very happy that her time was changed from 7:30 to 11:30. Pt cannot drive and needs her to take her to the appt. They live far and pt does not drive. Pt was upset that the time keeps changing for her. Pt's already got the time approved byhis nieves to bring the pt in at 7:30. Pt want to know if 11:30 is the only time available tomorrow. Please call the pt to discuss this. Thanks Action Taken: Message routed [facility]: [facility] clinic Travel Screening: Not Applicable documented in this encounter Plan of Treatment Upcoming Encounters Date Type Department Care Team (Late st Contact Info) Description 09/20/2023 2:45 PM CDT Office Visit [facility] [address] [facility] 9th Ri Clin [address] [place] [phone] Amadeo King MD 420 [facility] 493 [place], [place] [address] 12/07/2023 3:10 PM CDT Office Visit [facility] [address] [facility] [address] Clin [address] [place] [phone] Emma Deshpande MD 516 [facility] 911 [place], [place] [address] documented as of this encounter Visit Diagnoses Not on filedocumented in this encounter Care Teams Bilingual Customer Service Specialist Relationship Specialty Start Date End Date Martina Strickland PA-C PCP - General Physician Matte Cutter 07/19/19 Ailin Zavala MD Internal Medicine 07/28/11 Amadeo King MD [address] [place] [address] 493 [place], [place] [phone] Ophthalmology 12/22/19 Claudia Marcus MD [facility] EYE [facility] [address] [place] [address] Assigned Surgical Provider 03/01/20 05/25/20 Amadeo King MD [address] [place] [address] 493 [place], [place] [address] Assigned PCP 04/07/20 06/02/23 Joseph Trivedi MD [facility] [address] [facility] [address] [place] [address] Rheumatology 05/21/20 Claudia Marcsu MD [facility] EYE [facility] [address] [place] [phone] Assigned Surgical Provider 06/30/20 10/19/20 Emma Deshpande MD [address] [place] [address]24[address] Assigned Surgical Provider 05/26/20 06/29/20 Kishan Spain, OD 9[address] [facility] 4th [place] [address] Assigned Surgical Provider 10/20/20 11/23/20 Emma Deshpande MD [address] [place] [phone] Assigned Surgical Provider 11/24/20 12/07/20 Kishan Spain, OD 9[address] [facility] 4th [place] [address] Assigned Surgical Provider 12/08/20 03/27/22 Emma Deshpande MD [address] [place] [address]4975 Assigned Surgical Provider 03/28/22 04/03/22 Rene Grant MD [address] [place] [address] Assigned Surgical Provider 04/04/22 08/21/22 Amadeo Winston MD [address] [place] [address] Assigned Surgical Provider 08/22/22 08/28/22 Amadeo Winston MD [address] [place] [address] Assigned Surgical Provider 09/05/22 09/11/22 Rene Grant MD [address] [place] [address] Assigned Surgical Provider 08/29/22 09/04/22 Rene Grant MD [address] [place] [address] Assigned Surgical Provider 09/12/22 documented as of this encounter
--- OUTSIDE RECORDS SUMMARY | 2023-09-14 22:13 | XMS_ITS | Encounter Summary ---
Author Name Unknown Organization [facility] Address [address] [place] [address] Care Team Providers Care Sander Wooden Pencils Name Role Phone Ailin Zavala MD Unavailable [phone] Martina Strickland PA-C Primary Care Provider Amadeo King MD Unavailable + 5-0 Claudia Marcus MD Unavailable [phone] Amadeo King MD Unavailable + 5-0 Joseph Trivedi MD Unavailable [phone] Claudia Marcus MD Unavailable [phone] Emma Deshpande MD Unavailable + 2-0 Kishan Spain OD Unavailable +-[phone] Emma Deshpande MD Unavailable + [phone] Kishan Spain OD Unavailable +-[phone] Emma Deshpande MD Unavailable + 20 Rene Grant MD Unavailable +-[phone] Amadeo Winston MD Unavailable +[phone] Amadeo Winston MD Unavailable +[phone] Rene Grant MD Unavailable +-[phone] Rene Grant MD Unavailable +[phone] Reason for Visit * Reason Onset Date Comments Appointment 11/27/[address] King Encounter Details Date Type Department Care Team (Late Contact Info) Description 11/27/2019 Telephone [facility] [address] [facility] 9th Fl Clin 9[address] [place] [phone] Amadeo King MD 420 [facility] 493 [place], [place] [address] Appointment (Appt with Dr King) Social History Tobacco Use Types Packs/Day Years [...] or suspected to have Coronavirus / COVID-19? Unable to assess 11/15/2019 8:13 AM CDT documented as of this encounter Miscellaneous Notes * Telephone Encounter - Tania Marin - 11/27/2019 8:58 AM CDT [facility] Center Phone Message May a detailed message be left on voicemail: yes Reason for Call: Other: Pt cancelled her Appt with Dr King today as she is sick - said needs to be rescheduled very soon - no openings for months - she said you always add her on - please return her call to discuss - Thanks Action Taken: Message routed to[facility] E[facility] Travel Screening: Not Applicable documented in this encounter Plan of Treatment Upcoming Encounters Date Type Department Care Team (Late Contact Info) Description 09/20/2023 2:45 PM CDT Office Visit [facility] [address] [facility] 9th Fl Clin [address] [place] [address] Amadeo King MD 420 [facility] 493 [place] [address] 12/07/2023 3:10 PM CDT Office Visit [facility] [address] [facility] 9[address] Fl Clin [address] [place] [phone] Emma Deshpande MD 516 [facility] [address] [place], [place] [address] documented as of this encounter Visit Diagnoses Not on filedocumented in this encounter Care Teams Sander Wooden Pencils Relationship Specialty Start Date End Date Martina Strickland PA-C PCP - General Physician Work From Home 07/19/19 Ailin Zavala MD Internal Medicine 07/28/11 Amadeo King MD [address] [place] [address] 493 [place] [address] Ophthalmology 12/22/19 Claudia Marcus MD [facility] EYE [facility] [address] [place] [phone] Assigned Surgical Provider 03/01/20 05/25/20 Amadeo King MD [address] [place] [address] 493 [place] [address] Assigned PCP 04/07/20 06/02/23 Joseph Trivedi MD [facility] [address] [facility] 215 [place] [address] Rheumatology 05/21/20 Claudia Marcus MD [facility] EYE [facility] [address] [place] [phone] Assigned Surgical Provider 06/30/20 10/19/20 Emma Deshpande MD [address] [place] [address] Assigned Surgical Provider 05/26/20 06/29/20 Kishan Spain, OD [address] [place] [phone] Assigned Surgical Provider 10/20/20 11/23/20 Emma Deshpande MD [address] [place] [address] Assigned Surgical Provider 11/24/20 12/07/20 Kishan Spain, OD [address] [place] [phone] Assigned Surgical Provider 12/08/20 03/27/22 Emma Deshpande MD [address] [place] [address] Assigned Surgical Provider 03/28/22 04/03/22 Rene Grant MD [address] [place] [address] Assigned Surgical Provider 04/04/22 08/21/22 Amadeo Winston MD [address] [place] [address] Assigned Surgical Provider 08/22/22 08/28/22 Amadeo Winston MD [address] [place] [address] Assigned Surgical Provider 09/05/22 09/11/22 Rene Grant MD [address] [place] [address] Assigned Surgical Provider 08/29/22 09/04/22 Rene Grant MD [address] [place] [address] Assigned Surgical Provider 09/12/22 documented as of this encounter
--- OUTSIDE RECORDS SUMMARY | 2023-09-14 22:13 | XMS_ITS | Encounter Summary ---
Author Name Unknown Organization [place] Address [address] [place] [address] Care Team Providers Care Artist Color Separation Name Role Phone Ailin Zavala MD Unavailable [phone] Ailin aZvala MD Primary Care Provider Martina Strickland PA-C Primary Care Provider Amadeo King MD Unavailable + [phone] Claudia Marcus MD Unavailable [phone] Amadeo King MD Unavailable + [phone] Joseph Trivedi MD Unavailable +[phone] Claudia Marcus MD Unavailable [phone] Emma Deshpande MD Unavailable +0 Kishan Spain OD Unavailable +[phone] Emma Deshpande MD Unavailable +0 Kishan Spain OD Unavailable +[phone] Emma Deshpande MD Unavailable + Rene Grant MD Unavailable +[phone] Amadeo Winston MD Unavailable [phone] Amadeo Winston MD Unavailable + [phone] Rene Grant MD Unavailable +[phone] Rene Grant MD Unavailable [phone] Reason for Visit * Reason Onset Date Comments Referral 09/12/2018 Encounter Details Date Type Department Care Team (Late st Contact Info) Description 09/12/2018 Telephone [facility] [place] [id number] [facility] [address] [place] [phone] None Referral Social History Tobacco Use Types Packs/Day Years Used Date Smoking Tobacco: Never Alcohol Use Standard Drinks/Week Comments No 0 (1 standard drink = 0.6 oz pur e alcohol) Sex and Gender Information Value Date Recorded Sex Assigned at Female 2019 10:10 AM CDT Gender Identity Female 2019 10:10 AM CDT Sexual Orientation Straight 2019 10 :10 AM CDT documented as of this encounter Miscellaneous Notes * Telephone Encounter - Demi Judge - 09/12/2018 8:20 AM CDT [facility] Phone Message May a detailed message be left on voicemail: yes Reason for Call: Other: Urgent referral to 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 Lesa Llamas at [facility]. To be seen within the week and a corneal visitfor next week. Call to schedule, faxing notes Action Taken: Message routed to: [facility] documented in this encounter Plan of Treatment Upcoming Encounters Date Type Department Care Team (Late st Contact Info) Description 09/20/2023 2:45 PM CDT Office Visit [facility] [place] [phone] [facility] [address] [place] [phone] Amadeo King MD [address] [place] [address] 12/07/2023 3:10 PM CDT Office Visit [facility] [place] [phone] [facility] 9th Fl Clin [address]A [place] [address] Emma Deshpande MD 516 [facility] [address] [place], [place] [phone] documented as of this encounter Visit Diagnoses Not on filedocumented in this encounter Care Teams Artist Color Separation Relationship Specialty Start Date End Date Ailin Zavala MD PCP - General Internal Medicine 07/28/11 07/18/19 Martina Strickland PA-C PCP - General Physician Marketing Trainee 07/19/19 Ailin Zavala MD Internal Medicine 07/28/11 Amadeo King MD 420 [facility] [address] [place], [place] [phone] Ophthalmology 12/22/19 Claudia Marcus MD [facility] [address] [place] [address] Assigned Surgical Provider 03/01/20 05/25/20 Amadeo King MD 420 [facility] [address] [place], [place] [address] Assigned PCP 04/07/20 06/02/23 Joseph Trivedi MD [facility] [address] [facility] 215 [place] [address] Rheumatology 05/21/20 Claudia Marcus MD [facility] [address] [place] [phone] Assigned Surgical Provider 06/30/20 10/19/20 Emma Deshpande MD [address] [place] [address] [phone] Assigned Surgical Provider 05/26/20 06/29/20 Kishan Spain, OD [address] [place] [phone] Assigned Surgical Provider 10/20/20 11/23/20 Emma Deshpande MD [address] [place] [address] Assigned Surgical Provider 11/24/20 12/07/20 Kishan Spain, OD [address] [place] [phone] Assigned Surgical Provider 12/08/20 03/27/22 Emma Deshpande MD [address] [place] [address] [phone] Assigned Surgical Provider 03/28/22 04/03/22 Rene Grant MD [address] [place] [address] Assigned Surgical Provider 04/04/22 08/21/22 Amadeo Winston MD [address] [place] [address] Assigned Surgical Provider 08/22/22 08/28/22 Amadeo Winston MD 420 [place] [address] Assigned Surgical Provider 09/05/22 09/11/22 Rene Grant MD [address] [place] [address] 725285 Assigned Surgical Provider 08/29/22 09/04/22 Rene Grant MD [address] [place] [address] 455005 Assigned Surgical Provider 09/12/22 documented as of this encounter
--- OUTSIDE RECORDS SUMMARY | 2023-09-14 22:13 | XMS_ITS | Encounter Summary ---
Author Name Unknown Organization [place] Address [address] [place] [address] Care Team Providers Care Blender Helper Name Role Phone Ailin Zavala MD Unavailable [phone] Ailin Zavala MD Primary Care Provider Martina Strickland PA-C [...] Unavailable [phone] Rene Grant MD Unavailable [phone] Reason for Visit * Reason Onset Date Comments Call Back 03/27/2019 recovery time fo r upcoming surgery Encounter Details Date Type Department Care Team (Late st Contact Info) Description 03/27/[address] [facility] [place] [phone] [facility] 9[facility] [place] [facility] 9A [place] [address] Amadeo King MD [address] [address] Call Back (recovery time for upcoming surgery) Social History Tobacco Use Types Packs/Day Years [...] encounter Miscellaneous Notes * Telephone Encounter - Chayo Robbins - 03/27/2019 3:58 PM CST [facility] Phone Message May a detailed message be left on voicemail: yes Reason for Call: Other: Paula calling to find out what the recovery time is going to be after her surgery. She is needing this information for her work. Please call her back to discuss Action Taken: Message routed to: [facility] Eye [facility] INTERNIST OFFICE BASED ONLY documented in this encounter Plan of Treatment Upcoming Encounters Date Type Department Care Team (Late st Contact Info) Description 09/20/2023 2:45 PM CDT Office [facility] [address] 9[facility] 9A [place] [address] Amadeo King MD 420 [facility] 493 [place] [address] 12/07/2023 3:10 PM CDT Office [facility] 516 [facility] 9th Fl Clin 9A [place] [address] Emma Deshpande MD 516 [facility] [address] 911 [place], [place] 499[address] documented as of this encounter Visit Diagnoses Not on filedocumented in this encounter Care Teams Blender Helper Relationship Specialty Start Date End Date Ailin Zavala MD PCP - General Internal Medicine 07/28/11 07/18/19 Martina Strickland PA-C PCP - General Physician Laundromat Manager 07/19/19 Ailin Zavala MD Internal Medicine 07/28/11 Amadeo King MD [address] [place] [address] Ophthalmology 12/22/19 Claudia Marcus MD [facility] [address] [phone] Assigned Surgical Provider 03/01/20 05/25/20 Amadeo King MD [address] [place] [address] Assigned PCP 04/07/20 06/02/23 Joseph Trivedi MD [facility] [address] [facility] 215 [place], [place] [address] Rheumatology 05/21/20 Claudia Marcus MD [facility] [address] [place] [phone] Assigned Surgical Provider 06/30/20 10/19/20 Emma Deshpnade MD [address] [place] [address] 185055 Assigned Surgical Provider 05/26/20 06/29/20 Kishan Spain, OD [address] [place] [phone] Assigned Surgical Provider 10/20/20 11/23/20 Emma Deshpande MD [address] [place] [address] [phone] Assigned Surgical Provider 11/24/20 12/07/20 Kishan Spain, OD [address] [place] [address] [phone] Assigned Surgical Provider 12/08/20 03/27/22 Emma Deshpande MD [address] [place] [address] [phone] Assigned Surgical Provider 03/28/22 04/03/22 Rene Grant MD [address] [place] [address] Assigned Surgical Provider 04/04/22 08/21/22 Amadeo Winston MD [address] [place] [address] Assigned Surgical Provider 08/22/22 08/28/22 Amadeo Winston MD [address] [place] [address]128 Assigned Surgical Provider 09/05/22 09/11/22 Rene Grant MD [address] [place] [address] 89447 Assigned Surgical Provider 08/29/22 09/04/22 Rene Grant MD [address] [place] [address] 80040 Assigned Surgical Provider 09/12/22 documented as of this encounter
--- OUTSIDE RECORDS SUMMARY | 2023-09-14 22:13 | XMS_ITS | Encounter Summary ---
Author Name Unknown Organization [place] Address [address] [place] [address] Care Team Providers Care Asbestos Hazard Abatement Worker Name Role Phone Ailin Zavala MD Unavailable [phone] Martina Strickland PA-C Primary Care Provider Amadeo King MD Unavailable [phone] Amadeo King MD Unavailable [phone] Joseph Trivedi MD Unavailable [phone] Claudia Marcus MD Unavailable [phone] Kishan Spain OD Unavailable Emma Deshpande MD Unavailable [phone] Kishan Spain OD Unavailable [phone] Emma Deshpande MD Unavailable [phone] Rene Grant MD Unavailable [phone] Amadeo Winston MD Unavailable [phone] Amadeo Winston MD Unavailable [phone] Rene Grant MD Unavailable [phone] Rene Grant MD Unavailable [phone] Reason for Visit * Reason Onset Date Comments Refill Request 08/28/2020 mycophenolate (G ENERIC EQUIVALENT) 250 MG capsule and mycophenalate 500 mg Encounter Details Date Type Department Care Team (Late st Contact Info) Description 08/28/2020 Refill [facility] Building 516 [facility] 9th Fl Clin 9A [place] [address] Amadeo King MD 420 [facility] 493 [place], [place] [phone] Refill Request (mycophenolate (GENERIC EQUIVALENT) 250 MG capsule and mycophenalate 500 mg) Social History Tobacco Use Types Packs/Day Years Used Date Smoking Tobacco: Never Smokeless Tobacco: Never Alcohol Use Standard Drinks/Week Comments No 0 (1 standard drink = 0.6 oz pur e alcohol) PHQ-2 Answer Date Recorded PHQ-2 Score 0 05/13/2020 Sex and Gender Information Value Date Recorded Sex Assigned at Female 2019 10:10 AM CDT Gender Identity Female 2019 10:10 AM CDT Sexual Orientation Straight 2019 10 :10 AM CDT COVID-19 Exposure Response Date Recorded In the last month, have you been in contact with someone who was confirmed or suspected to have Coronavirus / COVID-19? No / Unsure 08/05/2020 2:49 PM CDT documented as of this encounter Miscellaneous Notes * Telephone Encounter - Jessica Burnette RN - 08/28/2020 3:24 PM CDT mycophenolate (GENERIC EQUIVALENT) 250 MG capsule and mycophenalate 500 mg Last Written Prescription Date: 05-28-2020/03-13-2020 Last Fill Quantity: 90/60, # refills: 0/1 Last Office Visit: 08-05-2020 Future Office visit: 09-02-2020 CBC RESULTS: OUTSIDE RECORDS DONE 05-21-2020 CREAT - OVERDUE 07-04-2019 = 0.8 Creatinine Date Value Ref Range Status 07/22/2011 0.68 0.52 - 1.04 mg/dL Final ] Liver Function Studies - No results Routing refill request to provider for review/approval because: Not on protocol. * Telephone Encounter - Stacey Ventura - 08/28/2020 12:48 PM CDT [facility] Phone Message May a detailed message be left on voicemail: yes Reason for Call: Medication Refill Request Has the patient contacted the pharmacy for the refill? Yes Name of medication being requested: mycophenolate (GENERIC EQUIVALENT) 250 MG capsule and mycophenalate 500 mg Provider who prescribed the medication: Dr. King Pharmacy: [id number] [place], [place] - [address] [facility] [place] [address] Date medication is needed: now-pt has 1 left. Spouse didn't tell her she was almost out. Thanks Action Taken: Message routed to: [facility] eye gen Travel Screening: Not Applicable documented in this encounter Plan of Treatment Upcoming Encounters Date Type Department Care Team (Late st Contact Info) Description 09/20/2023 2:45 PM CDT Office Visit [facility] [place] [phone] [facility] 9th [facility] 9A [place] [address] Amadeo King MD 420 [facility] 493 [place] [address] 12/07/2023 3:10 PM CDT Office Visit [facility] 516 [facility] 9th Wa Clin 9A [place] [address] Emma Deshpande MD 516 [facility] 911 [place], [place] 2[address] documented as of this encounter Visit Diagnoses Diagnosis 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 documented in this encounter Care Teams Asbestos Hazard Abatement Worker Relationship Specialty Start Date End Date Martina Strickland PA-C PCP - General Physician Architectural Wood Model Maker 07/19/19 Ailin Zavala MD Internal Medicine 07/28/11 Amadeo King MD 420 [facility] 493 [place], [place] [address] Ophthalmology 12/22/19 Amadeo King MD [address] [phone] Assigned PCP 04/07/20 06/02/23 Joseph Trivedi MD [facility] [address] [facility] 215 [place] [address] Rheumatology 05/21/20 Claudia Marcus MD [facility] 6533 [place] [phone] Assigned Surgical Provider 06/30/20 10/19/20 Kishan Spain, OD [address] [place] [address] 4th [place] [phone] Assigned Surgical Provider 10/20/20 11/23/20 Emma Deshpande MD 6 [facility] 911 [place], [place] 606475 Assigned Surgical Provider 11/24/20 12/07/20 Kishan Spain, OD 909 [facility] 4th [place] [phone] Assigned Surgical Provider 12/08/20 03/27/22 Emma Deshpande MD 516 [facility] 911 [place], [place] 854445 Assigned Surgical Provider 03/28/22 04/03/22 Rene Grant MD [address] [place] [address] 887275 Assigned Surgical Provider 04/04/22 08/21/22 Amadeo Winston MD 420 [place], [place] 330365 Assigned Surgical Provider 08/22/22 08/28/22 Amadeo Winston MD 420 [place], [place] 767465 Assigned Surgical Provider 09/05/22 09/11/22 Rene Grant MD [address] [place] [address] 486385 Assigned Surgical Provider 08/29/22 09/04/22 Rene Grant MD [address] [place] [address] 836295 Assigned Surgical Provider 09/12/22 documented as of this encounter
--- OUTSIDE RECORDS SUMMARY | 2023-09-14 22:13 | XMS_ITS | Encounter Summary ---
Author Name Unknown Organization [place] Address [address] [place] [address] Care Team Providers Care Operations Specialists Name Role Phone Ailin Zavala MD Unavailable [phone] Ailin Zavala MD Primary Care Provider Martina [...] Unavailable + [phone] Rene Grant MD Unavailable Rene Grant MD Unavailable Encounter Details Date Type Department Care Team (Late st Contact Info) Description 10/01/2018 Office Visit [address] 9[facility] 9A [place] [phone] Gonzalez Perry, OD [facility] 8450 [place] [address] Aqueous misdirection, right - Right Eye (Primary Dx); Postoperative eye state - Right Eye; 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 Social History Tobacco Use [...] Description 09/20/2023 2:45 PM CDT Office Visit [address] 9[facility] 9[address] [place] [phone] Amadeo King MD 420 [facility] 493 [place], [place] [address] 12/07/2023 3:10 PM CDT Office Visit [address] 9[facility] 9[address] [place] [phone] Emma Deshpande MD 516 [facility] 911 [place], [place] [address] documented as of this encounter Visit Diagnoses Diagnosis Aqueous misdirection, 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 - Right Eye Other states following surgery of eye and adnexa 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 Unspecified glaucoma documented in this encounter Care Teams Operations Specialists Relationship Specialty Start Date End Date Ailin Zavala MD PCP - General Internal Medicine 07/28/11 07/18/19 Martina Strickland PA-C PCP - General Physician Hospitality Aide 07/19/19 Ailin Zavala MD Internal Medicine 07/28/11 Amadeo King MD [address] [place] [address] [phone] Ophthalmology 12/22/19 Claudia Marcus MD [facility] [address] [phone] Assigned Surgical Provider 03/01/20 05/25/20 Amadeo King MD [address] [place] [address] [phone] Assigned PCP 04/07/20 06/02/23 Joseph Trivedi MD [facility] [address] [place] [address] [address] [place] [address] Rheumatology 05/21/20 Claudia Marcus MD [facility] [address] [phone] Assigned Surgical Provider 06/30/20 10/19/20 Emma Deshpande MD [address] [place] [address] Assigned Surgical Provider 05/26/20 06/29/20 Kishan Spain, OD [address] [place] [phone] Assigned Surgical Provider 10/20/20 11/23/20 Emma Deshpande MD [address] [place] [address]68 Assigned Surgical Provider 11/24/20 12/07/20 Kishan Spain, OD [address] [place] [address] [phone] Assigned Surgical Provider 12/08/20 03/27/22 Emma Deshpande MD [address] [place] [address] 630385 Assigned Surgical Provider 03/28/22 04/03/22 Rene Grant MD [address] [place] [address] [phone] Assigned Surgical Provider 04/04/22 08/21/22 Amadeo Winston MD [address] [place] [address] 35[address] Assigned Surgical Provider 08/22/22 08/28/22 Amadeo Winston MD [address] [place] [address] [phone] Assigned Surgical Provider 09/05/22 09/11/22 Rene Grant MD [address] [place] [address] [phone] Assigned Surgical Provider 08/29/22 09/04/22 Rene Grant MD [address] [place] [address] [phone] Assigned Surgical Provider 09/12/22 documented as of this encounter
--- OUTSIDE RECORDS SUMMARY | 2023-09-14 22:13 | XMS_ITS | Encounter Summary ---
Author Name Unknown Organization [facility] Address [address] [place] [address] Care Team Providers Care Director Of Graduate Medical Education Name Role Phone Ailin Zavala MD Unavailable [phone] Ailin Zavala MD Primary Care Provider Martina [...] Kishan Spain OD Unavailable +[phone] Emma Deshapnde MD Unavailable + Rene Grant MD Unavailable +[phone] Amadeo Winston MD Unavailable [phone] Amadeo Winston MD Unavailable + [phone] Rene Grant MD Unavailable +[phone] Rene Grant MD Unavailable [phone] Reason for Visit * Reason Onset Date Comments Prior Auth - Medication 04/25/2019 CYCLOSPO RINE 1% in artificial tears- APPEAL DENIED Encounter Details Date Type Department Care Team (Late st Contact Info) Description 04/25/2019 Telephone [facility] 516 [facility] 9 Me Clin 9A [place] [phone] Candy Jett, DO 909 [place], [place] [phone] Prior Auth - Medication (CYCLOSPORINE 1% in artificial tears- APPEAL DENIED) Social History Tobacco Use Types Packs/Day Years [...] encounter Miscellaneous Notes * Telephone Encounter - Amarilys Roberts - 05/19/2019 12:50 PM CST Images from the original note were not included. MEDICATION APPEAL DENIED Medication: CYCLOSPORINE 1% in artificial tears- APPEAL DENIED Denial Date: 05/19/2019 Denial Rational: Second Level Appeal Information: Second level appeals will be managed by the clinic staff and provider. ING SUBCONTRACTOR * Telephone Encounter - Amarilys Roberts - 05/18/2019 1:36 PM CST Insurance called for additional information. Answered and should receive an outcome by 05/19/18. Case# [id number] ING SUBCONTRACTOR * Telephone Encounter - Amarilys Roberts - 05/16/2019 1:19 PM CST Images from the original note were not included. Received addition form to fill out. Completed and faxed back with all original requests. ING SUBCONTRACTOR * Telephone Encounter - Amarilys Roberts - 05/16/2019 12:45 PM CST Images from the original note were not included. Called insurance because we keep getting the same message below stating to have pharmacy process the main ingredient. Spoke to pharmacy and they already have a few times. Per insurance, they claim they have not receive the appeal even though we received the message the same day it was faxed. Rep suggest to re-fax to a different # [phone] (Benefit Coverage Review). According to the rep, the case has not been touched since the denial 05/08/19. Case # [id number].Re- faxed appeal again marked urgent. ING SUBCONTRACTOR * Telephone Encounter - Amarilys Roberts - 05/12/2019 12:22 PM CST Medication Appeal Initiation We have initiated an appeal for the requested medication: Medication: CYCLOSPORINE 1% in artificial tears- APPEAL Pending Appeal Start Date: 05/12/2019 Insurance Company: [employer] - Comments: Appeal letter faxed to [employer] [phone]. . ING SUBCONTRACTOR * Telephone Encounter - Amarilys Roberts - 05/08/2019 12:43 PM CST Images from the original note were not included. PRIOR AUTHORIZATION DENIED Medication: CYCLOSPORINE 1% in artificial tears- DENIED Denial Date: 05/08/2019 Denial Rational: Appeal Information: ING SUBCONTRACTOR * Telephone Encounter - Amarilys Roberts - 05/04/2019 11:24 AM CST Images from the original note were not included. Received message from insurance to have pharmacy run the main ingredient. Per pharmacy, previous NDC has been discontinued, therefore new NDC is requested to be covered. New NDC [address]-05. Old NDC [address]-47. Called insurance to have new NDC put on formulary. Refaxed request back stating this. Rep was just going to fax over a new PA form, but we had already fax one in, just refaxing with new information. ING SUBCONTRACTOR * Telephone Encounter - Vesna Baca - 05/04/2019 10:59 AM CST Rec'd a call from Armando @ [facility] pharmacy inquiring on status of P/A. Advised of the below. ING SUBCONTRACTOR * Telephone Encounter - Amarilys Roberts - 05/02/2019 11:28 AM CST Manually faxed PA request to [employer]. ING SUBCONTRACTOR * Telephone Encounter - Amarilys Roberts - 04/25/2019 3:41 PM CST Images from the original note were not included. Central Prior Authorization Team PA Initiation Medication: CYCLOSPORINE 1% in artificial tears Insurance Company: [employer] - Pharmacy Filling the Rx: [id number] - [place], [place] - [address] AT [facility] [address] Filling Pharmacy Filling Pharmacy Fax: Start Date: 04/25/2019 ING SUBCONTRACTOR * Telephone Encounter - Martina Marcano - 04/25/2019 2:56 PM CST Images from the original note were not included. Medication is documented in the After Visit Summary under the media tab. ING SUBCONTRACTOR documented in this encounter Plan of Treatment Upcoming Encounters Date Type Department Care Team (Late st Contact Info) Description 09/20/2023 2:45 PM CDT Office Visit [facility] [place] [id number] [facility] 9[facility] Clin 9A [place] [address] Amadeo King MD 420 [facility] 493 [place], [place] [address] 12/07/2023 3:10 PM CDT Office Visit [facility] - [address] 9[facility] Clin 9A [place] [phone] Emma Deshpande MD 6 [facility] 911 [place], [place] [phone] documented as of this encounter Visit Diagnoses Not on filedocumented in this encounter Care Teams Director Of Graduate Medical Education Relationship Specialty Start Date End Date Ailin Zavala MD PCP - General Internal Medicine 07/28/11 07/18/19 Martina Strickland PA-C PCP - General Physician Water Sponger 07/19/19 Ailin Zavala MD MD Internal Medicine 07/28/11 Amadeo King MD 420 [facility] 493 [place] [address] Ophthalmology 12/22/19 Claudia Marcus MD [facility] [address] [place] [phone] Assigned Surgical Provider 03/01/20 05/25/20 Amadeo King MD [address] [place] [address] 493 [place], [place] [phone] Assigned PCP 04/07/20 06/02/23 Joseph Trivedi MD [facility] [address] [facility] [address] [place] [address] Rheumatology 05/21/20 Claudia Marcus MD [facility] [address] [place] [address] Assigned Surgical Provider 06/30/20 10/19/20 Emma Deshpande MD [address] [place] [address] 911 [place], [place] [phone] Assigned Surgical Provider 05/26/20 06/29/20 Kishan Spain, OD [address] [place] [address] Assigned Surgical Provider 10/20/20 11/23/20 Emma Deshpande MD [address] [place] [address] 911 [place], [place] [phone] Assigned Surgical Provider 11/24/20 12/07/20 Kishan Spain, OD [address] [place] [phone] Assigned Surgical Provider 12/08/20 03/27/22 Emma Deshpande MD [address] [place] [address] 911 [place] [address] Assigned Surgical Provider 03/28/22 04/03/22 Rene Grant MD [address] [place] [address] Assigned Surgical Provider 04/04/22 08/21/22 Amadeo Winston MD [address] [place] [address] Assigned Surgical Provider 08/22/22 08/28/22 Amadeo Winston MD [address] [place] [address] Assigned Surgical Provider 09/05/22 09/11/22 Rene Grant MD [address] [place] [address] Assigned Surgical Provider 08/29/22 09/04/22 Rene Grant MD [address] [place] [address] Assigned Surgical Provider 09/12/22 documented as of this encounter
--- OUTSIDE RECORDS SUMMARY | 2023-09-14 22:13 | XMS_ITS | Encounter Summary ---
Author Name Unknown Organization [place] Address [address] [place] [address] Care Team Providers Care Podiatric Medicine Doctor Name Role Phone Ailin Zavala MD Unavailable [phone] Martina Strickland PA-C Primary Care Provider Amadeo King MD Unavailable + [phone] Claudia Marcus MD Unavailable [phone] Amadeo King MD Unavailable + 5-0 Jsoeph Trivedi MD Unavailable [phone] Claudia Marcus MD Unavailable [phone] [...] for Visit * Reason Onset Date Comments Medication Question 01/22/2020 Encounter Details Date Type Department Care Team ([facility] Contact Info) Description 01/22/[address] [facility] [place] 678346 [facility] 9th Ut Clin 9A [place] [phone] Amadeo King MD [address] [phone] Medication Question Social History Tobacco Use Types Packs/Day Years [...] encounter Miscellaneous Notes * Telephone Encounter - Robin Luu - 01/22/2020 1:39 PM CDT [facility] Call Center Phone Message May a detailed message be left on voicemail: yes Reason for Call: Medication Question or concern regarding medication Prescription Clarification Name of Medication: cyclosporine, combigan, prednisone eye drop Prescribing Provider: [facility] Pharmacy: [id number] [address] [facility] [address] And [facility] What on the order needs clarification? Pt is running low. Cyclosporine should be sent to [facility] pharmacy. The other two rx should go to pharmacy above. Action Taken: Other: eye Travel Screening: Not Applicable documented in this encounter Plan of Treatment Upcoming Encounters Date Type Department Care Team ([facility] Contact Info) Description 09/20/2023 2:45 PM CDT Office Visit [facility] - [address] 9[facility] Clin 9A [place] [address] Amadeo King MD 420 [facility] 493 [place] [address] 12/07/2023 3:10 PM CDT Office Visit [facility] 516 [facility] 9 Ut Clin 9A [place] [address] Emma Deshpande MD 516 [facility] [address] 911 [place] [address] documented as of this encounter Visit Diagnoses Not on filedocumented in this encounter Care Teams Podiatric Medicine Doctor Relationship Specialty Start Date End Date Martina Strickland PA-C PCP - General Physician Plasterer Rough 07/19/19 Ailin Zavala MD Internal Medicine 07/28/11 Amadeo King MD [address] [place] [address] Ophthalmology 12/22/19 Claudia Marcus MD [facility] EYE [facility] [address] [place] [address] Assigned Surgical Provider 03/01/20 05/25/20 Amadeo King MD [address] [place] [address] Assigned PCP 04/07/20 06/02/23 Joseph Trivedi MD [facility] [address] [facility] 215 [place] [address] Rheumatology 05/21/20 Claudia Marcus MD [facility] EYE [facility] [address] [place] [address] Assigned Surgical Provider 06/30/20 10/19/20 Emma Deshpande MD [address] [place] [address] 729015 Assigned Surgical Provider 05/26/20 06/29/20 Kishan Spain, OD [address] [place] [phone] Assigned Surgical Provider 10/20/20 11/23/20 Emma Deshpande MD [address] [place] [address] 322335 Assigned Surgical Provider 11/24/20 12/07/20 Kishan Spain, OD [address] [place] [phone] Assigned Surgical Provider 12/08/20 03/27/22 Emma Deshpande MD [address] [place] [address] 216925 Assigned Surgical Provider 03/28/22 04/03/22 Rene Grant MD [address] [place] [address] 939765 Assigned Surgical Provider 04/04/22 08/21/22 Amadeo Winston MD [address] [place] [address] 149855 Assigned Surgical Provider 08/22/22 08/28/22 Amadeo Winston MD [address] [place] [address] 28[address] Assigned Surgical Provider 09/05/22 09/11/22 Rene Grant MD [address] [place] [address] 125595 Assigned Surgical Provider 08/29/22 09/04/22 Rene Grant MD [address] [place] [address] 297135 Assigned Surgical Provider 09/12/22 documented as of this encounter
--- OUTSIDE RECORDS SUMMARY | 2023-09-14 22:13 | XMS_ITS | Encounter Summary ---
Author Name Unknown Organization [facility] Address [address] [place] [address] Care Team Providers Care Mine Foreman Name Role Phone Ailin Zavala MD Unavailable [phone] Ailin Zavala MD Primary Care Provider Martina [...] Department Care Team (Late Contact Info) Description 11/18/[address] 9[facility] 9[place] [address] Hailee Stone MD Social History Tobacco Use Types Packs/Day Years [...] Description 09/20/2023 2:45 PM CDT Office Visit [address] 9[facility] 9[address] [place] [address] Amadeo King MD [address] [place] [address] [facility] 493 [place] [address] 12/07/2023 3:10 PM CDT Office Visit [address] 9[facility] 9[place] [address] Emma Deshpande MD 516 [facility] [address] 911 [place], [place] 0[address]65 documented as of this encounter Visit Diagnoses Not on filedocumented in this encounter Care Teams Mine Foreman Relationship Specialty Start Date End Date Ailin Zavala MD PCP - General Internal Medicine 07/28/11 07/18/19 Martina Strickland PA-C PCP - General Physician Carbon Brusher Assembler 07/19/19 Ailin Zavala MD Internal Medicine 07/28/11 Amadeo King MD 420 [facility] 493 [place], [place] 97[address] Ophthalmology 12/22/19 Claudia Marcus MD [facility] [address] [place] [phone] Assigned Surgical Provider 03/01/20 05/25/20 Amadeo King MD 420 [facility] 493 [place], [place] 142165 Assigned PCP 04/07/20 06/02/23 Joseph Trivedi MD [facility] [address] [facility] [facility] 215 [place], [place] 3[address] Rheumatology 05/21/20 Claudia Marcus MD [facility] [address] [place] [address] Assigned Surgical Provider 06/30/20 10/19/20 Emma Deshpande MD 516 [facility] 911 [place], [place] [phone] Assigned Surgical Provider 05/26/20 06/29/20 Kishan Spain, OD [address] [place] [phone] Assigned Surgical Provider 10/20/20 11/23/20 Emma Deshpande MD [address] [place] [address] Assigned Surgical Provider 11/24/20 12/07/20 Kishan Spain, OD [address] [place] [phone] Assigned Surgical Provider 12/08/20 03/27/22 Emma Deshpande MD [address] [place] [address] Assigned Surgical Provider 03/28/22 04/03/22 Rene Grant MD [address] [place] [address] Assigned Surgical Provider 04/04/22 08/21/22 Amadeo Winston MD [address] [place] [address] Assigned Surgical Provider 08/22/22 08/28/22 Amadeo Winston MD [address] [place] [address] Assigned Surgical Provider 09/05/22 09/11/22 Rene Grant MD [address] [place] [address]84 Assigned Surgical Provider 08/29/22 09/04/22 Rene rGant MD [address] [place] [address] Assigned Surgical Provider 09/12/22 documented as of this encounter
--- OUTSIDE RECORDS SUMMARY | 2023-09-14 22:13 | XMS_ITS | Encounter Summary ---
Author Name Unknown Organization [place] Address [address] [place] [address] Care Team Providers Care C D Still Operator Name Role Phone Ailin Zavala MD Unavailable [phone] Martina Strickland PA-C Primary Care Provider Amadeo King MD Unavailable + [phone] Claudia Marcus MD Unavailable [phone] Amadeo King MD Unavailable + 5-0 Joseph Trivedi MD Unavailable [phone] Claudia Marcus MD Unavailable [phone] 440 Rene Grant MD Unavailable [phone] Encounter Details Date Type Department Care Team (Late st Contact Info) Description 03/27/2020 [facility] Medical Advice [address] [address] Jessica Chisholm, RN Social History Tobacco Use Types Packs/Day Years [...] have Coronavirus / COVID-19? 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 documented as of this encounter Plan of Treatment Upcoming Encounters Date Type Department Care Team (Late st Contact Info) Description 09/20/2023 2:45 PM CDT Office Visit [facility] 516 [facility] 9th La Clin 9A [place] [address] Amadeo King MD 420 [facility] 493 [place], [place] [address] 12/07/2023 3:10 PM CDT Office Visit [facility] Eye [facility] 516 [facility] 9th La Clin 9A [place] [address] Emma Deshpande MD 516 [facility] [address] 911 [place], [place] [address] documented as of this encounter Visit Diagnoses Not on filedocumented in this encounter Care Teams C D Still Operator Relationship Specialty Start Date End Date Martina Strickland PA-C PCP - General Physician Emg Technician 07/19/19 Ailin Zavala MD Internal Medicine 07/28/11 Amadeo King MD [address] [phone] Ophthalmology 12/22/19 Claudia Marcus MD [facility] E[facility] [address] [place] [phone] Assigned Surgical Provider 03/01/20 05/25/20 Amadeo King MD [address] [place] [address] 109025 Assigned PCP 04/07/20 06/02/23 Joseph Trivedi MD [facility] [address] [facility] 215 [place], [place] [address] Rheumatology 05/21/20 Claudia Marcus MD [facility] E[facility] [address] [place] [phone] Assigned Surgical Provider 06/30/20 10/19/20 Emma Deshpande MD 6 [facility] 911 [place], [place] 787405 Assigned Surgical Provider 05/26/20 06/29/20 Kishan Spain OD [address] [place] [address] 4th [place] [phone] Assigned Surgical Provider 10/20/20 11/23/20 Emma Deshpande MD [address] [place] [address]26 Assigned Surgical Provider 11/24/20 12/07/20 Kishan Spain, [address] [place] [address] 4th [place] [phone] Assigned Surgical Provider 12/08/20 03/27/22 Emma Deshpande MD [address] [place] [address] Assigned Surgical Provider 03/28/22 04/03/22 Rene Grant MD [address] [place] [address] 21704 Assigned Surgical Provider 04/04/22 08/21/22 Amadeo Winston MD [address] [place] [address] Assigned Surgical Provider 08/22/22 08/28/22 Amadeo Winston MD [address] [place] [address] Assigned Surgical Provider 09/05/22 09/11/22 Rene Grant MD [address] [place] [address]9998 Assigned Surgical Provider 08/29/22 09/04/22 Rene Grant MD 6 [place] [address] Assigned Surgical Provider 09/12/22 documented as of this encounter
--- OUTSIDE RECORDS SUMMARY | 2023-09-14 22:13 | XMS_ITS | Encounter Summary ---
Author Name Unknown Organization [facility] Address [address] [place] [address] Care Team Providers Care Barber Apprentice Name Role Phone Ailin Zavala MD Unavailable [phone] Martina Strickland PA-C Primary Care Provider Amadeo King MD Unavailable + 5-0 Claudia Marcus MD Unavailable [phone] Amadeo King MD Unavailable + 5-0 Joseph Trivedi MD Unavailable [phone] Claudia Marcus MD Unavailable [phone] [...] * Reason Onset Date Comments Patient Request for Note/Letter 07/25/2019 Pt needs the Exact date for return to work send back in [employer] Please Encounter Details Date Type Department Care Team ([facility] st Contact Info) Description 07/25/2019 Telephone [facility] 516 [facility] 9th Fl Clin 9A [place] [phone] Aamdeo King MD 420 [facility] 493 [place], [place] [address] Patient Request for Note/Letter (Pt needs the Exact date for return to work send back in [employer] Please) Social History Tobacco Use Types Packs/Day Years [...] have Coronavirus / COVID-19? No / Unsure 07/24/2019 1:32 PM CDT documented as of this encounter Miscellaneous Notes * Telephone Encounter - Grace Potter - 07/25/2019 4:18 PM CDT [facility] Call Center Phone Message May a detailed message be left on voicemail: yes Reason for Call: Form or Letter Type or form/letter needing completion:Pt needs he exact date to retrun back to work Please send back in [employer] Provider: Dr Christine Arreguin form needed: JOSE MANUEL Once completed: Send back in [employer] Action Taken: Message routed [facility] eye Travel Screening: Not Applicable documented in this encounter Plan of Treatment Upcoming Encounters Date Type Department Care Team (Late st Contact Info) Description 09/20/2023 2:45 PM CDT Office Visit [facility] [address] 9th Fl Clin 9A [place] [phone] Amadeo King MD [address] [facility] 493 [place], [place] [address] 12/07/2023 3:10 PM CDT Office Visit [facility] [address] 9th Fl Clin 9A [place] [phone] Emma Deshpande MD [address] [place], [place] 6[address] documented as of this encounter Visit Diagnoses Not on filedocumented in this encounter Care Teams Barber Apprentice Relationship Specialty Start Date End Date Martina Strickland PA-C PCP - General Physician Quarry Manager 07/19/19 Ailin Zavala MD Internal Medicine 07/28/11 Amadeo King MD [address] [facility] 493 [place], [place] [address] Ophthalmology 12/22/19 Claudia Marcus MD [facility] E[facility] [address] [phone] Assigned Surgical Provider 03/01/20 05/25/20 Amadeo King MD [address] [facility] 493 [place] [address] Assigned PCP 04/07/20 06/02/23 Joseph Trivedi MD [facility] [address] [facility] 215 [place] [address] Rheumatology 05/21/20 Claduia Marcus MD [facility] EYE [facility] [address] [place] [phone] Assigned Surgical Provider 06/30/20 10/19/20 Emma Deshpande MD [address] [place] [address] 22537 Assigned Surgical Provider 05/26/20 06/29/20 Kishan Spain, OD [address] [place] [phone] Assigned Surgical Provider 10/20/20 11/23/20 Emma Deshpande MD [address] [place] [address] [phone] Assigned Surgical Provider 11/24/20 12/07/20 Kishan Spain, OD [address] [place] [phone] Assigned Surgical Provider 12/08/20 03/27/22 Emma Deshpande MD [address] [place] [address] 867205 Assigned Surgical Provider 03/28/22 04/03/22 Rene Grant MD [address] [place] [address] 116225 Assigned Surgical Provider 04/04/22 08/21/22 Amadeo Winston MD [address] [place] [address] 418855 Assigned Surgical Provider 08/22/22 08/28/22 Amadeo Winston MD [address] [place] [address] 935145 Assigned Surgical Provider 09/05/22 09/11/22 Rene Grant MD [address] [place] [address] 329825 Assigned Surgical Provider 08/29/22 09/04/22 Rene Grant MD [address] [place] [address] 500595 Assigned Surgical Provider 09/12/22 documented as of this encounter
--- OUTSIDE RECORDS SUMMARY | 2023-09-14 22:13 | XMS_ITS | Encounter Summary ---
Author Name Unknown Organization [facility] Address [address] [place] [address]. [place] [address] Care Team Providers Care Bar Useful Or Busser Name Role Phone Ailin Zavala MD Unavailable [phone] Martina Strickland PA-C Primary Care Provider Amadeo King MD Unavailable [phone] Amadeo King MD Unavailable [phone] Joseph Trivedi MD Unavailable [phone] Kishan Spain OD Unavailable [phone] Emma Deshpande MD Unavailable [phone] Rene Grant MD Unavailable Amadeo Wintson MD Unavailable [phone] Amadeo Winston MD Unavailable [phone] Rene Grant MD Unavailable [phone] Rene Grant MD Unavailable [phone] Reason for Visit * Reason Comments Medication Refill PREDNISOLONE ACET O/ DILSHAD 1% Encounter Details Date Type Department Care Team (Late st Contact Info) Description 05/28/2021 Refill [facility] - [address] 4th [place] [address] Silas Cody MD [facility] [place] [address] Medication Refill (PREDNISOLONE ACET O/DILSHAD 1%) Social History Tobacco Use Types Packs/Day Years [...] have Coronavirus / COVID-19? 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 KLAL. -New onset corneal edema, decreased visual acuity 20/300 (from 20/30 with RGP). RGP fits fine, withgood movement -Currently on pred 6x/day, brimonidine bid, protopic ja, ofloxacin bid, cyclosporine qid -Pachy increased 613 --> 742 -Cornea curbside with Dr. Bae - increase prednisolone to q2hr while awake. Start phuong gtt 4x/dayright eye ?? F/u [address] Gerard ?? Routing refill request to provider for review/approval because: Med not on protocol. Also in last note it mentions an increase in the eye drop every 2 hours while awake. Orders do not match in chart and from the pharmacy. Please advise Serene Leo RN Central Triage Red Flags/Med Refills RVISOR BRINE documented in this encounter Plan of Treatment Upcoming Encounters Date Type Department Care Team (Late st Contact Info) Description 09/20/2023 2:45 PM CDT Office Visit [facility] [address] [facility] [address] [facility] [address] [place] [phone] Amadeo King MD [address] [facility] [address] [place] [address] 12/07/2023 3:10 PM CDT Office Visit [facility] [address] [facility] [address] [facility] [address] [place] [phone] Emma Deshpande MD [address] [facility] [address] [place], [place] [id number] documented as of this encounter Visit Diagnoses 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 documented in this encounter Care Teams Bar Useful Or Busser Relationship Specialty Start Date End Date Martina Strickland PA-C PCP - General Physician [employer] Teacher 07/19/19 Ailin Zavala MD Internal Medicine 07/28/11 Amadeo King MD [address] [place] [address] [facility] [address] [place], [place] [address] Ophthalmology 12/22/19 Amadeo King MD [address] [facility] [address] [place] [address] Assigned PCP 04/07/20 06/02/23 Joseph Trivedi MD [facility] [address] [facility] [address] [place], [place] [address] Rheumatology 05/21/20 Kishan Spain OD [address] [facility] 4th [place] [phone] Assigned Surgical Provider 12/08/20 03/27/22 Emma Deshpande MD [address] [place] [address] [address] [place], [place] [id number] Assigned Surgical Provider 03/28/22 04/03/22 Rene Grant MD [address] [place] [address] [id number] Assigned Surgical Provider 04/04/22 08/21/22 Amadeo Winston MD [address] [place] [address] [id number] Assigned Surgical Provider 08/22/22 08/28/22 Amadeo Winston MD [address] [place] [address] [id number] Assigned Surgical Provider 09/05/22 09/11/22 Rene Grant MD [address] [place] [address] [id number] Assigned Surgical Provider 08/29/22 09/04/22 Rene Grant MD [address] [place] [address] [id number] Assigned Surgical Provider 09/12/22 documented as of this encounter
[2023-09-14 22:33] LABS: Basophils Absolute Auto 0.06 K/uL (0.00-0.30); Basophils Percent Auto 0.9 % (0.0-3.0); Eosinophils Absolute Auto 0.24 K/uL (0.00-0.50); Eosinophils Percent Auto 3.7 % (0.0-7.0); Hematocrit 41.7 % (33.0-51.0); Hemoglobin* 13.6 gm/dL (12.0-16.0); Immature Granulocytes Abs Auto 0.04 K/uL (0.00-0.30); Immature Granulocytes Pct Auto 0.6 %; Lymphocytes Absolute Auto 1.77 K/uL (0.90-2.90); Lymphocytes Percent Auto 27.4 % (20-44); Mean Corpuscular HGB Conc 33 gm/dL (32-36); Mean Corpuscular Hemoglobin 29 pg (26-34); Mean Corpuscular Volume 90 fL (80-100); Monocytes Percent Auto 7.8 % (0.0-11.0); Neutrophils Absolute Auto 3.84 K/uL (1.7-7.0); Neutrophils Percent Auto 59.6 % (42.0-72.0); Platelet Count* 249 K/uL (140-440); RDW Coefficient of Variation % 12.3 % (11.5-15.5); Red Blood Count 4.64 m/uL (4.00-5.20); White Blood Count* 6.45 K/uL (4.50-11.00)
[2023-09-14 22:40] LABS: Slide Review Reflex No
[2023-09-14 22:49] LABS: Albumin* 4.6 g/dL (3.3-5.0); Chloride* 105 mmol/L (96-114); Potassium* 4.7 mmol/L (3.6-5.1); Sodium* 138 mmol/L (135-149)
[2023-09-14 22:51] LABS: Creatinine* 0.6 mg/dL (0.5-1.5); Estimated Glomerular Filt Rate 104 ml/min
[2023-09-14 22:52] LABS: Alanine Aminotransferase* 27 U/L (4-35); Alkaline Phosphatase* 85 U/L (40-150); Anion Gap 6 mEq/L (7-15); Aspartate Amino Transferase* 28 U/L (12-35); Bilirubin Total* 0.3 mg/dL (0.1-1.5); Blood Urea Nitrogen* 14 mg/dL (7-30); Calcium* 9.7 mg/dL (8.4-10.6); Carbon Dioxide* 27 mmol/L (20-32); Glucose* 95 mg/dL (60-115); Total Protein* 7.6 g/dL (6.0-8.3)
== END 2023-09-14 22:07 | disposition home or self-care (01) ==
LOC: NPINS 22:06
PROVIDERS: PCP Physician Assistant Medical; Visit Provider Student in an Organized Health Care Education/Training Program
DX: H18.891 Other specified disorders of cornea, right eye (principal)
CPT/HCPCS: 80053; 85025

== ENCOUNTER 2023-09-18 19:39 | Emergency (ER) | payer OTHER, SELFPAY ==
[2023-09-18 19:48] VITALS: BP 138/86; PULSE 112; RESP 16; TEMP 36.4; O2SAT 97
--- NOTE | 2023-09-18 20:04 | ED_ITS ---
HPI - Back Pain/Injury General Chief Complaint: Back Injury/Pain Stated Complaint: sever hip pain to lower back Time Seen by Provider: 09/18/23 19:40 History of Present Illness HPI Narrative: This 58-year-old female comes in because of a flare up of her chronic back pain. She does not report any recent injury event or strenuous activity. She has been in to see a spine clinic and is taking gabapentin and meloxicam. She also started physical therapy. She comes in stating that her back pain is not adequately controlled with these treatments. She does not report any pain radiating down either leg. She is able to get up and ambulate. Related Data Home Medications Medication Instructions Recorded Confirmed omega-3 fatty acids 1,000 mg 1,000 mg PO QDAY 12/24/21 03/18/23 capsule prednisolone acetate 1 % eye 1 drp ophthalmic (eye) QID 12/24/21 03/18/23 drops,suspension gabapentin 300 mg capsule 300 mg PO QDAY 06/26/22 03/18/23 Meloxicam PO PRN 07/27/22 03/18/23 Multiple vitamin PO DAILY 07/27/22 03/18/23 latanoprost 0.005 % eye drops 1 drp ophthalmic (eye) BID 07/27/22 03/18/23 mycophenolate mofetil 500 mg tablet 500 mg PO BID 07/27/22 03/18/23 sodium chloride 5 % eye drops drp ophthalmic (eye) .6 x daily 07/27/22 03/18/23 tacrolimus 0.03 % topical ointment 1 applic topical DAILY 07/27/22 03/18/23 tacrolimus 0.1 % topical ointment 1 applic topical QHS 07/27/22 03/18/23 ubidecarenone-omega 3-vit E 25 1 cap PO DAILY 07/27/22 03/18/23 mg-150 (90-60) mg-200 unit capsule Previous Rx's Medication Instructions Recorded nystatin-triamcinolone 100,000 1 applic topical BID #30 grams 12/04/22 unit/g-0.1 % topical cream ondansetron 4 mg disintegrating 4 mg PO Q8H PRN nausea and 03/18/23 tablet vomiting #10 tabs metformin 500 mg tablet,extended 2,000 mg (4 x 500 mg) PO QDAY 3 07/02/23 release 24 hr months #360 tabs levothyroxine 125 mcg tablet 125 mcg PO DAILY #90 tabs 08/18/23 hydrocodone 5 mg-acetaminophen 325 1 tab PO Q4-6H PRN pain #15 tabs 09/18/23 mg tablet methylprednisolone 4 mg tablets in See Rx Instructions PO .COMPLEX 09/18/23 a dose pack (Medrol (Angel)) #21 ea Allergies Allergy/AdvReac Type Severity Reaction Status Date / Time No Known Drug Allergies Allergy Verified 03/18/23 16:02 Review of Systems Status of ROS: Reports: 10 or more systems reviewed and unremarkable except as noted in History and below Narrative: Constitutional: No fevers, no weight gain or loss. Eyes: No discharge. No vision changes. HENT: No congestion, no sore throat, no ear pain. Cardiovascular: No chest pain, no palpitations. Respiratory: No shortness of breath, no wheezes, no cough. Gastrointestinal: No abdominal pain, no vomiting, no diarrhea. Genitourinary: No dysuria, no hematuria. Musculoskeletal: Low back pain as described above. Skin: No rashes, no pruritis. Neurological: No dizziness, weakness, sensory change, speech change. Endo/Heme/Allergies: No bruising or bleeding. No polydipsia. Pysch: no suicidality, no anxiety, no insomnia. All other systems reviewed and are negative. [facility] Medical History Cellulitis ?L03.90 - Cellulitis, unspecified (ICD-10) Dehydration ?E86.0 - Dehydration (ICD-10) Surgical History History of cornea transplant ?Z94.7 - Corneal transplant status (ICD-10) Family History Mother Arthritis Maternal Grandmother Colon cancer Family/Other Coronary artery disease Social History Narrative: Non-smoker. with adult children. Rare alcohol use. Denies recreational drug use. Employed for the [employer]- working with the [email or web address] program. What is your current living situation?: I presently have a place to live Problems where you live: no known problems In the past 12 months, utilities in danger of being shut off: no In past 12 months, lack of transportation kept you from medical appts, meetings, work, or getting things needed for daily living: no In the past 12 mos, have been you worried that your food would run out before you had money to buy more?: never true In the past 12 mos, the food you bought just didn't last and you didn't have mon ey to buy more?: never true Smoking Status: Never smoker Do you use any of these nicotine containing products: None Second hand tobacco smoke exposure: No How often do you have a drink containing alcohol: never How often do you have six or more drinks on one occasion: Never AUDIT-C Alcohol total score: 0 Non-prescribed substance use: denies use How often does anyone, including family, friends and others, physically hurt you : never How often does anyone, including family, friends and others, insult or talk down to you: never How often does anyone, including family, friends and others, threaten you with harm: never How often does anyone, including family, friends and others, scream or curse at you: never Little interest or pleasure in doing things: not at all Feeling down, depressed, or hopeless: not at all service: No Exam Narrative: Exam Narrative: Constitutional: Well-developed, well-nourished, no acute distress. HEENT: Normocephalic, atraumatic. Neck: Normal range of motion. Nontender. Supple. Heart: Intact distal pulses. Lungs: No chest discomfort. No wheezes, rhonchi, or rales. Abdomen: Nontender. Back: Diffuse pain across the low back. No midline tenderness along the spine. No radiating pain to either leg. Extremities: Normal range of motion. No injury. Skin: Intact. No rash. Warm. No erythema or pallor. Neurologic: No altered sensation. No weakness. Alert and oriented. Psychiatric: No suicidality. No anxiety or depression. No insomnia. Nursing notes and vitals signs are reviewed. Const: Vital Signs, click to edit/add: Vital Signs - 24 hr 09/18/23 19:48 Temperature 97.5 F L Pulse Rate [Pulse Oximeter] 112 H Respiratory Rate 16 Blood Pressure [Ri ght Upper Arm] 138/86 Pulse Oximetry 97 Oxygen Delivery Me thod Room Air Course Vital Signs Vital signs: Initial Vital Signs Temperature 97.5 F L 09/18/23 19:48 Temperature Source Temporal Artery Scan 09/18/23 19:48 Pulse Rate 112 H 09/18/23 19:48 Respiratory Rate 16 09/18/23 19:48 Blood Pressure 138/86 09/18/23 19:48 Blood Pressure Mean 103 09/18/23 19:48 Blood Pressure Position Sitting 09/18/23 19:48 Pulse Oximetry 97 09/18/23 19:48 Oxygen Delivery Method Room Air 09/18/23 19:48 Vital Signs Temperature 97.5 F L 09/18/23 19:48 Pulse Rate 112 H 09/18/23 19:48 Respiratory Rate 16 09/18/23 19:48 Blood Pressure 138/86 09/18/23 19:48 Pulse Oximetry 97 09/18/23 19:48 Oxygen Delivery Method Room Air 09/18/23 19:48 Temperature 97.5 F L 09/18/23 19:48 Pulse Rate 112 H 09/18/23 19:48 Respiratory Rate 16 09/18/23 19:48 Blood Pressure 138/86 09/18/23 19:48 Pulse Oximetry 97 09/18/23 19:48 Oxygen Delivery Method Room Air 09/18/23 19:48 MDM - Back Pain/Injury MDM Narrative Medical decision making narrative: This patient is being seen in a spine clinic and did have recent x-rays. There was no indication for further imaging at this time as she has not had any injury event or strenuous activity that would trigger a need for imaging now. She is taking meloxicam and gabapentin. I stated that we could give a limited supply of [place] but would not refill this medicine. I also prescribed Flexeril and Medrol Dosepak. She is agreeable to this plan and will follow-up with physical therapy and clinic as scheduled and needed. The Flexeril and a few tablets of [place] came from [facility]. The Medrol Dosepak was prescribed through her preferred pharmacy. Discharge Plan Discharge Clinical Impression: Chronic back pain Patient Disposition: Home, Self-Care Condition: Stable Additional Instructions: Take medication as prescribed and needed. Follow-up with spine clinic as scheduled and needed. Return if worsening. Prescriptions: New hydrocodone-acetaminophen 5-325 mg tablet 1 tab PO Q4-6H PRN (Reason: pain) Qty: 15 0RF methylprednisolone [Medrol (Angel)] 4 mg tablets,dose pack See Rx Instructions .ROUTE .COMPLEX Qty: 21 0RF Rx Instructions: orally per package directions No Action prednisolone acetate 1 % drops,suspension 1 drp ophthalmic (eye) QID omega-3 fatty acids 1,000 mg capsule 1,000 mg PO QDAY Meloxicam PO PRN Patient Comments: Patient is unsure of the doseage. Multiple vitamin PO DAILY mycophenolate mofetil 500 mg tablet 500 mg PO BID tacrolimus 0.03 % ointment 1 applic topical DAILY Rx Instructions: to use as directed in right eye tacrolimus 0.1 % ointment 1 applic topical QHS Rx Instructions: right eye ubidecarenone-omega 3-vit E 25-150-200 mg-mg-unit capsule 1 cap PO DAILY latanoprost 0.005 % drops 1 drp ophthalmic (eye) BID sodium chloride 5 % drops ophthalmic (eye) .6 x daily Patient Comments: [NO ORIGINAL SIG] ondansetron 4 mg tablet,disintegrating 4 mg PO Q8H PRN (Reason: nausea and vomiting) Qty: 10 0RF gabapentin 300 mg capsule 300 mg PO QDAY Patient Comments: TAKE 1 CAPSULE BY MOUTH AT BEDTIME nystatin-triamcinolone 100,000-0.1 unit/g-% cream 1 applic topical BID Qty: 30 0RF metformin 500 mg tablet extended release 24 hr 2,000 mg PO QDAY 90 Days Qty: 360 0RF levothyroxine 125 mcg tablet 125 mcg PO DAILY Qty: 90 0RF Follow Up/Referrals: Martina Strickland PA-C [Primary Care Provider] - Stand Alone Forms: [employer] Info Instructions
--- OUTSIDE RECORDS SUMMARY | 2023-09-18 20:18 | XMS_ITS | Continuity of Care Document ---
Author Name Unknown Organization [facility] Address [address] [facility] [address] [place] [address] Phone Care Team Providers Care Legal Collector Name Role Phone Joseph Trivedi DO Unavailable [...] day into affected eye(s) OD - Active LEVOTHYROXINE SODIUM (unknown strength) take 1 tablet by oral route every day Not Available - Active metformin ER 500 mg tablet,extended release 24hr take 1 tablet by oral route 4 times every day with the evening meal 500 MG - Active RESTASIS MULTIDOSE (unknown strength) instill [...] Consultants , [address], [place], [address], [place] tel:[phone] [facility] , Corneal transplant monitor Chronic High Risk Meds (chief complaint) Unspecified complication of corneal transplant, right eyeUnspecifi ed pterygium of right eyeUnspecifi ed complication of corneal transplantOt her longterm (current) drug therapy 1 Farooq Ruiz. [facility] [address], [place], [address], [place]. tel:[phone] Referring Provider: Joseph Martin, [facility] [address], [place], [address]. tel:[phone] Office/Outpa tient Visit, Est [facility] , [address], [place], [address], [place] tel:[phone] [facility] , Corneal transplant monitor Chronic High Risk Meds (chief complaint) Unspecified pterygium of right eyeUnspecifi ed complication of corneal transplantOt her salvage determiner (current) drug therapyUnspe cified complication of corneal transplant, right eye 1 Farooq Ruiz. [facility] [address], [place], [address], [place]. tel:[phone] Referring Provider: Joseph Martin, [facility] [address], [place], [address]. tel:[phone] Office/Outpa tient Visit, [facility] , [address], [place], [address], [place] tel:[phone] [facility] , Unspecified pterygium of right eyeUnspecifi ed complication of corneal transplantOt her longterm (current) drug therapy 0 Farooq Ruiz. [facility] [address], [place], [address], [place]. tel:[phone] Referring Provider: Joseph Martin, [facility] [address], [place], [address]. tel:[phone] Office/Outpa tient Visit, [facility] , [address], [place], [address], [place] tel:[phone] [facility] , Unspecified pterygium of right eyeUnspecifi ed complication of corneal transplantOt her salvage determiner (current) drug therapy 0 Farooq Ruiz. [facility] [address], [place], [address], [place]. tel:[phone] Specialist: Amadeo King, [facility] [address] [place] [address] [address], [place], [address]. tel:[phone] ng Provider: Joseph Martin, [facility] [address], [place], [address]. tel:[phone] Office/Outpa tient Visit, [facility] , [address], [place], [address], [place] tel:[phone] [facility] , Unspecified pterygium of right eyeUnspecifi ed complication of corneal transplantOt her salvage determiner (current) drug therapy 9 Farooq Ruiz. [facility] [address], [place], [address], [place]. tel:[phone] Specialist: Amadeo King, [facility] [address] [facility] [address], [place], [address]. tel:[phone] ng Provider: Joseph Martin, [facility] [address], [place], [address]. tel:[phone] Office/Outpa tient Visit, New [facility] , [address], [place], [address], [place] tel:[phone] [facility] , Unspecified complication of corneal transplantUn specified pterygium of right eyeOther longterm (current) drug therapy 9 Farooq Ruiz. [facility] [address], [place], [address], [place]. tel:[phone] Referring Provider: Joseph Martin, [facility] [address], [place], [address]. tel:[phone] Family History Family Member Type Diagnosis Age At Onset Mother Problem (finding) Arthritis Immunizations Vaccine Date Status Comments COVID-19 Pfizer administered Source: Otde[place] r Provider COVID-19 Pfizer administered Source: Othe r Provider Payers Payer name Insurance type Covered alliance party ID Authoriza tion(s) [employer] CI [id number] Social History Type Description Quantity Date Captured [...] complication of corn eal transplant assessment Other longterm (current) drug t herapy Mental Status Date Cognitive Assessment Orientation - [place] ed to time, place, person, situation. Patient Care Teams Name Effective Dates (start - stop) Status Members No Information
--- OUTSIDE RECORDS SUMMARY | 2023-09-18 20:18 | XMS_ITS | Clinical Summary ---
Author Name Unknown Organization [facility] Address [place], [place] [address] Care Team Providers Care Bricklayer Paving Brick Name Role Phone Martina Strickland PA-C Primary Care Provider [phone] Allergies Active Allergy Reactions Criticality Noted Date [...] daily with meals. Active medication order composer [place] oil 1000 mg daily Active UBIDECARENONE (COQ-10 [...] Comments Blood Pressure 123/75 04/18/2019 2:56 PM MOBILE HEAVY EQUIPMENT MECHANIC Pulse 102 04/18/2019 2:56 PM MOBILE HEAVY EQUIPMENT MECHANIC Temperature 35.7 ??C (96.3 ??F) 04/18/2019 12:[address] Respiratory Rate 16 04/18/2019 2:56 PM MOBILE HEAVY EQUIPMENT MECHANIC Oxygen Saturation 94% 04/18/2019 2:56 PM MOBILE HEAVY EQUIPMENT MECHANIC Inhaled Oxygen Concentration - - Weight 110.8 kg (244 lb 3 oz) 04/17/2019 12:09 P M MOBILE HEAVY EQUIPMENT MECHANIC Height 161 cm (5' 3.39) 04/17/2019 12:09 PM MOBILE HEAVY EQUIPMENT MECHANIC Body Mass Index 42.73 04/17/2019 12:09 PM MOBILE HEAVY EQUIPMENT MECHANIC Plan of Treatment Health Maintenance Due Date [...] this topic Medical Devices Implanted Type Area Monitoring Engineer Device Identifier Shelf Expiration Date Model / Serial / Lot Cornea Id Licarolyn Eye - [id number] Implanted:Qty: 1 on 07/05/2017 by Ronni Horton MD at [facility] Right: Eye [facility] Eye Bank 07/09/2017 CORNEA#18- [id number]-OD-C / [id number] -C / Allograft 3.5x3.5cm F Amniograft - [id number] Implanted:Qty: 1 on 07/05/2017 by Rogelio Galvan MD at [facility] Right: Eye [employer] 02/02/2019 [id number]# / [id number] / Description:[id number] SERIAL NUMBER Plate Glaucoma Valve Flex Ahmed Silcn - [id number] Implanted:Qty: 1 on 09/30/2018 by Claudia Marcus MD at [facility] Right: Eye [employer] 08/14/2020 FP7# / [id number] / [id number] Cornea 9.0mm+ Visiongraft W/O Scleral Rim Half - [id number] Implanted:Qty: 1 on 09/30/2018 by Claudia Marcus MD at [facility] Right: Eye [employer] 08/31/2020 [id number] # / [id number] / Description:DIN: [id number] FIN (P): [id number] [place] [facility] - [id number] Os-C Implanted:Qty: 1 on 04/18/2019 by Amadeo King MD at [facility] Right: Eye [facility] Eye Bank 04/26/2019 CORNEA# / OS-C / [place]nea [place] [facility] Eye - [id number] Od-C Implanted:Qty: 1 on 04/18/2019 by Amadeo King MD at [facility] Right: Eye [facility] Eye [facility] 04/26/2019 CORNEA# / OD-C / Iol [place] +21 Tecnis [id number] - [id number] Implanted:Qty: 1 on 04/18/2019 by Amadeo King MD at [facility] Right: Eye [employer] 01/26/2024 [id number] 21.0# / [id number] / Allograft 3.5x3.5cm F Amniograft - [id number] Implanted:Qty: 1 on 04/18/2019 by Amadeo King MD at [facility] Right: Eye [employer] 11/07/2020 [id number]# / [id number] / Procedures Procedure Name Priority Date/Time Associated Diagnosis Comments GENERAL MANAGER LAND DEPARTMENT THIN PREP PAP SCREEN IMAGED Routine 11/08/2020 1:30 PM CDT from Last 3 Months or Most Recently Relevant to Health Maintenance Results * GENERAL MANAGER LAND DEPARTMENT THIN PREP PAP SCREEN IMAGED (11/08/2020 1:30 PM CDT) Case Report Gynecologic Cytology Report ? Case: [id number] ? Authorizing Provider: ??Martina Strickland PA-C ?Collected: ? 11/08/2020 1330 ? Ordering Location: ? [facility] ?Received: ?11/11/2020 1612 ? First Screen: ?Isabella Garcia ? Specimen: ?GENERAL MANAGER LAND DEPARTMENT ThinPrep Vial Screening, Cervical/Vaginal ? 11/21/2020 6:20 PM CDT [facility] INTERPRETATION/ RESULT NEGATIVE FOR INTRAEPITHELIAL LESION OR MALIGNANCY (NIL) (none) 11/21/2020 6:20 PM CDT [facility] IMEN ADEQUACY Satisfactory for evaluation Endocervical component present 11/21/2020 6:20 PM CDT [facility] ENTRAL LABORATORY HPV REQUEST HPV and PAP 11/21/2020 6:20 PM CDT [facility] Date of LMP 11/21/2020 6:20 PM CDT [facility] Comment:unknown Last Pap Date 11/26/2017 11/21/2020 6:20 PM CDT [facility] Last Pap Result NIL 6:20 PM CDT [facility] Additional Information 11/21/2020 6:20 PM CDT [facility] Comment: Interpreted at [facility] - [address], [place] [address] Automated Review Successful 11/21/2020 6:20 PM CDT [facility] Comment:Specimen processed s uccessfully by automated revolving field assembler device, GlossyBoxPrep Imaging System, [employer] ANCILLARY TESTING GENERAL MANAGER LAND DEPARTMENT HPV Ordered, Please see separate report 11/21/2020 6:20 PM CDT [facility] Note The pap test is a [...] and malignant lesions. 11/21/2020 6:20 PM CDT [facility] Other (Cervical/Vagina l) 11/08/2020 1:30 PM CDT 11/11/2020 4:12 PM CDT Martina Strickland PA-C PATHOLOGY/CYTOLOGY [facility] [address] [place] [address], [place] from Last 3 Months or Most [...] 6:36 AM 07/05/2017 3:03 PM Care Teams Bricklayer Paving Brick Relationship Specialty Start Date End Date Martina Strickland PA-C [address], [place] [address] PCP - General Emergency Medicine 04/17/19
--- OUTSIDE RECORDS SUMMARY | 2023-09-18 20:19 | XMS_ITS | Encounter Summary ---
Author Name Unknown Organization [place] Address [address] [place] [address] Care Team Providers Care Broomcorn Thresher Name Role Phone Ailin Zavala MD Unavailable [phone] Martina Strickland PA-C Primary Care Provider Amadeo King MD Unavailable [phone] Joseph Trivedi MD Unavailable [phone] Rene Grant MD Unavailable [phone] Encounter Details Date Type Department Care Team [...] Description 09/20/2023 2:45 PM CDT Office Visit [facility] Eye [address] 9 [address] Clin [address] [place] [phone] Amadeo King MD 420 [facility] 493 [place], [place] [address] 12/07/2023 3:10 PM CDT Office Visit [facility] Eye [facility] 516 [facility] 9th Fl Clin [address] [place] [address] Emma Deshpande MD 516 [facility] [address] [place] [address] documented as of this encounter Visit Diagnoses Not on filedocumented in this encounter Care Teams Broomcorn Thresher Relationship Specialty Start Date End Date Martina Strickland PA-C PCP - General Physician Classification Counselor 07/19/19 Ailin Zavala MD Internal Medicine 07/28/11 Amadeo King MD [address] [place] [address] 845135 Ophthalmology 12/22/19 Joseph Trivedi MD [facility] [address] [facility] 215 [place], [place] [address] Rheumatology 05/21/20 Reen Grant MD [address] [place] [address] [id number] Assigned Surgical Provider 09/12/22 documented as of this encounter
--- OUTSIDE RECORDS SUMMARY | 2023-09-18 20:19 | XMS_ITS | Encounter Summary ---
Author Name Unknown Organization [place] Address [address] [place] [address] Care Team Providers Care Telecom Manager Name Role Phone Ailin Zavala MD Unavailable [phone] Martina Strickland PA-C Primary Care Provider Amadeo King MD Unavailable [phone] Joseph Trivedi MD Unavailable [phone] Rene Grant MD Unavailable [phone] Reason for Visit * Reason Onset Date Comments Question 07/16/2023 Ointment Encounter Details Date Type Department Care Team (Late st Contact Info) Description 07/16/2023 Telephone [facility] Eye [address] 9[facility] [address] [place] [phone] Rene Grant MD [address] [place] [address] [phone] Question (Ointment) Social History Tobacco Use Types [...] as prescribed. Susi ash 07/16/2023 9:55 AM [facility] * Telephone Encounter - Callie Norwood - 07/16/2023 9:10 AM CST [facility] Call Center Phone Message May a [...] Center (CSC): EYE Travel Screening: Not Applicable [facility] documented in this encounter Plan of Treatment Upcoming Encounters Date Type Department Care Team (Late st Contact Info) Description 09/20/2023 2:45 PM CDT Office Visit [facility] [place] [id number] [facility] 9th [facility] [address] [place] [address] Amadeo King MD [address] [place] [address] 12/07/2023 3:10 PM CDT Office Visit [facility] - [address] 9[facility] [address] [place] [address] Emma Deshpande MD 516 [facility] [address] [place], [place] [phone] documented as of this encounter Visit Diagnoses Not on filedocumented in this encounter Care Teams Telecom Manager Relationship Specialty Start Date End Date Martina Strickland PA-C PCP - General Physician Trip Motor Operator 07/19/19 Ailin Zavala MD Internal Medicine 07/28/11 Amadeo King MD 420 [facility] 493 [place], [place] [address] Ophthalmology 12/22/19 Joseph Trivedi MD [facility] [address] [facility] 215 [place], [place] [address] Rheumatology 05/21/20 Rene Grant MD 6 [place], [place] 8[address] Assigned Surgical Provider 09/12/22 documented as of this encounter
--- OUTSIDE RECORDS SUMMARY | 2023-09-18 20:19 | XMS_ITS | Encounter Summary ---
Author Name Unknown Organization [facility] Address [address] [place] [address] Care Team Providers Care Gyroscopic Engineering Technician Name Role Phone Ailin Zavala MD Unavailable [phone] Martina Strickladn PA-C Primary Care Provider Amadeo King MD Unavailable [phone] Joseph Trivedi MD Unavailable [phone] Rene Grant MD Unavailable [phone] Encounter Details Date Type Department Care Team (Late st Contact Info) Description 09/09/2023 [facility] Eye [address] Clin [address] [place] [address] [facility] Social History Tobacco Use Types [...] Description 09/20/2023 2:45 PM CDT Office Visit [facility] Eye [facility] 516 [facility] 9th [place] Clin 9[address] [place] [address] Amadeo King MD 420 [facility] 493 [place], [place] [address] 12/07/2023 3:10 PM CDT Office Visit [facility] Eye [facility] 516 [facility] 9th [place] Clin 9[address] [place] [phone] Emma Deshpande MD [address] [place] [address] 911 [place], [place] [address] documented as of this encounter Visit Diagnoses Not on filedocumented in this encounter Care Teams Gyroscopic Engineering Technician Relationship Specialty Start Date End Date Martina Strickland PA-C PCP - General Physician Lap Grinder 07/19/19 Ailin Zavala MD Internal Medicine 07/28/11 Amadeo King MD [address] [place] [address] 493 [place], [place] [phone] Ophthalmology 12/22/19 Joseph Trivedi MD [facility] [address] [facility] 215 [place], [place] [address] Rheumatology 05/21/20 Rene Grant MD [address] [place] [address] [id number] Assigned Surgical Provider 09/12/22 documented as of this encounter
--- OUTSIDE RECORDS SUMMARY | 2023-09-18 20:19 | XMS_ITS | Encounter Summary ---
Author Name Unknown Organization [place] Address [address] [place] [address] Care Team Providers Care Refinery Operator Reforming Unit Name Role Phone Ailin Zavala MD Unavailable [phone] Martina Strickland PA-C Primary Care Provider Amadeo King MD Unavailable [phone] Joseph Trivedi MD Unavailable [phone] Rene Grant MD Unavailable [phone] Encounter Details Date Type Department Care Team [...] Office Visit [facility] Eye [address] 9 [address] Clin 9A [place] [address] Amadeo King MD 420 [facility] 493 [place], [place] [address] 12/07/2023 3:10 PM CDT Office Visit [facility] Eye [facility] 516 [facility] 9th Fl Clin [address] [place] [address] Emma Deshpande MD 516 [facility] [address] [place] [address] documented as of this encounter Visit Diagnoses Not on filedocumented in this encounter Care Teams Refinery Operator Reforming Unit Relationship Specialty Start Date End Date Martina Strickland PA-C PCP - General Physician Aquatic Laborer 07/19/19 Ailin Zavala MD Internal Medicine 07/28/11 Aamdeo King MD [address] [place] [address] [id number] Ophthalmology 12/22/19 Joseph Trivedi MD [facility] [address] [facility] [facility] 215 [place], [place] [address] Rheumatology 05/21/20 Rene Grant MD [address] [place] [address] [phone] Assigned Surgical Provider 09/12/22 documented as of this encounter
--- OUTSIDE RECORDS SUMMARY | 2023-09-18 20:19 | XMS_ITS | Referral Summary ---
Author Name Unknown Organization [facility] Address [address] [place] [address] Care Team Providers Care Underwriting Support Manager Name Role Phone Ailin Zavala MD Unavailable [phone] Martina Strickland PA-C Primary Care Provider Amadeo King MD Unavailable [phone] Joseph Trivedi MD Unavailable [phone] Rene Grant MD Unavailable [phone] Encounters Date Type Department Care Team Description 09/14/[address] [phone] Amadeo King MD Call Back 09/09/2023 MyC Medical Advice [address] [address] [facility] 09/07/[address] [address] Amadeo King MD Appointment (2-3 week follow up) 08/30/2023 Travel 08/30/2023 2:45 PM CDT Office Visit [address] [place] [address] Amadeo King MD Corneal ulcer of right eye (Primary Dx); 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; Post corneal transplant 08/23/2023 Travel 08/23/2023 3:00 PM CDT Office Visit [address] [address] Rene Grant MD Hou, Joshua Honghan, MD Corneal ulcer of right eye (Primary Dx); 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; Persistent epithelial defect of right cornea; 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 08/22/2023 Travel 08/09/2023 Travel 08/09/2023 3:00 PM CDT Office Visit [address] [address] Rene Grant MD Corneal ulcer of right eye (Primary Dx); 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 07/26/2023 Travel 07/26/2023 2:45 PM CDT Office Visit [address] [address] Rene Grant MD Corneal ulcer of right eye (Primary Dx); 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; Dry eye syndrome of both eyes 2023 Travel 2023 3:00 PM CDT Office Visit [address] [address] Rene Grant MD Corneal ulcer of right eye (Primary Dx); Persistent epithelial defect of right cornea; 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; Dry eye syndrome of both eyes 07/16/[address] [address] Rene Grant MD Question (Ointment) 07/14/2023 Travel 07/14/2023 2:45 PM RENEWABLE ENERGY CONSULTANT Office Visit [address] [address] Rene Grant MD Corneal ulcer of right eye (Primary Dx); Persistent epithelial defect of right cornea 07/10/[address] [address] Amadeo [place] MD Medication Refill 07/09/2023 Travel 07/09/2023 3:00 PM RENEWABLE ENERGY CONSULTANT Office Visit [address] [address] Rene Grant MD Corneal ulcer of right eye (Primary Dx); History of corneal transplant - Right Eye; 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 07/06/[address] [address] Rene Grant MD Patient Request (Lab Orders Faxed) 07/05/2023 Travel 07/05/2023 12:30 PM RENEWABLE ENERGY CONSULTANT Office Visit [address] [address] Rene Grant MD Corneal ulcer of right eye (Primary Dx); History of corneal transplant - Right Eye; 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 07/02/2023 Travel 07/02/2023 3:00 PM RENEWABLE ENERGY CONSULTANT Office Visit [address] [address] Rene Grant MD 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) 06/30/2023 Travel 06/30/2023 9:30 AM RENEWABLE ENERGY CONSULTANT Office Visit [facility] Eye [facility] - [address] [phone] Amadeo [place] MD Chanbour, Wassef, MD 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); History of corneal transplant - Right Eye; 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 06/29/2023 Telephone [facility] Eye [facility] - [place] [phone] [facility] 9[facility] [address] [place] [phone] Rene Grant MD Symptoms (White spot on right cornea) from Last 3 Months Allergies Active Allergy Reactions Criticality Noted Date Comments Lidocaine Other (See Comments) 07/22/2011 can Other reaction(s): Get the ProprietárioDireto Medications Medication Sig Dispensed Refills Start Date End Date Status metFORMIN (GLUCOPHAGE-XR) 500 MG 24 hr tablet Take 1,000 mg by mouth 2 times daily Active levothyroxine (SYNTHROID/LEVOTH ROID) 125 MCG tablet Take 125 mcg by mouth daily Active sodium chloride (RENA 128) 5 % ophthalmic solutionIndicatio ns: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,Post corneal transplant,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,[place]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, right eye Place 1 [...] CDT Office Visit [facility] Eye [facility] - [place] [phone] [facility] [address] [place] [phone] Amadeo King MD [address] [facility] 493 [place], [place] [address] 12/07/2023 3:10 PM CDT Office Visit [facility] Eye [facility] - [facility] 516 [facility] [address] [place] [phone] Emma Deshpande MD [address] [facility] [address] [place], [place] [address] Procedures Procedure Name Priority Date/Time Associated Diagnosis Comments PUNCTAL CLOSURE, PLUGS Routine 08/23/2023 4:31 PM CDT 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 SLIT LAMP PHOTOS OD (RIGHT EYE) Routine 07/26/2023 3:53 PM CDT Corneal ulcer of right eye AMNIOTIC MEMBRANE NON SUTURE OD Routine 07/14/2023 10:10 PM RENEWABLE ENERGY CONSULTANT 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 ULTRASOUND B-SCAN OD (RIGHT EYE) Routine 07/05/2023 2:05 PM RENEWABLE ENERGY CONSULTANT Corneal ulcer of right eye SLIT LAMP PHOTOS OD (RIGHT EYE) Routine 07/05/2023 2:05 PM RENEWABLE ENERGY CONSULTANT Corneal ulcer of right eye ULTRASOUND B-SCAN OD (RIGHT EYE) Routine 07/02/2023 4:01 PM RENEWABLE ENERGY CONSULTANT Central corneal ulcer of right eye CORNEAL CULTURE OD (RIGHT EYE) Routine 06/30/2023 11:22 AM RENEWABLE ENERGY CONSULTANT Central corneal ulcer of right eye SLIT LAMP PHOTOS OD (RIGHT EYE) Routine 06/30/2023 11:22 AM RENEWABLE ENERGY CONSULTANT Central corneal ulcer of right eye GRAM STAIN Routine 06/30/2023 11:00 AM RENEWABLE ENERGY CONSULTANT Central corneal ulcer of right eye AEROBIC BACTERIAL CULTURE ROUTINE Routine 06/30/2023 11:00 AM RENEWABLE ENERGY CONSULTANT Central corneal ulcer of right eye AMOEBA CULTURE Routine 06/30/2023 11:00 AM RENEWABLE ENERGY CONSULTANT Central corneal ulcer of right eye FUNGAL OR YEAST CULTURE ROUTINE Routine 06/30/2023 11:00 AM RENEWABLE ENERGY CONSULTANT Central corneal ulcer of right eye ANAEROBIC BACTERIAL CULTURE ROUTINE Routine 06/30/2023 11:00 AM RENEWABLE ENERGY CONSULTANT Central corneal ulcer of right eye TAYLOR PREP Routine 06/30/2023 11:00 AM RENEWABLE ENERGY CONSULTANT Central corneal ulcer of right eye BASIC [...] . Location: Right lower . Ref #: [id number]. Lot #: [id number] . Punctal Plug Insertion #4 Plan: Monitor, [...] Membrane Non Suture OD (07/14/2023 10:10 PM RENEWABLE ENERGY CONSULTANT) Rene Saravia MD - 07/14/2023 10:10 PM RENEWABLE ENERGY CONSULTANT Time out performed at: 3:21 PM . Preprocedure Medication: Proparacaine 2% solution . Plan: Monitor . Attending assisted by: Fellow . Notes Estuardo hart 2025-04-05 [id number] Cydney Madrid MD OPHTHALMOLOGY * Ultrasound B-scan OD (right eye) (07/05/2023 2:05 PM RENEWABLE ENERGY CONSULTANT) Only the most recent of2 resultswithin the time period is included. Rene Saravia MD - 07/05/2023 2:05 PM RENEWABLE ENERGY CONSULTANT Patient cooperation: Reliable . Reliability of the test: Good . Test Findings: Normal . Interpretation: Normal . Interval: Same . Notes Vitreous floaters no endophthalmitis Rene Grant MD OPHTHALMOLOGY * Corneal Culture OD (right eye) (06/30/2023 11:22 AM RENEWABLE ENERGY CONSULTANT) Rene Saravia MD - 06/30/2023 11:22 AM RENEWABLE ENERGY CONSULTANT Sign in/Time Out: Sign in communication completed, [...] Routine Without Gram Stain (06/30/2023 11:00 AM RENEWABLE ENERGY CONSULTANT) Culture 15-50 CFU Granulicatella adiacens(A) BHAVIN 07/04/2023 10:10 AM RENEWABLE ENERGY CONSULTANT [facility] Tissue STRUCTURE OF CORNEA OF RIGHT EYE / Unknown Non-blood Collection / Unknown 06/30/2023 11:00 AM RENEWABLE ENERGY CONSULTANT 06/30/2023 12:41 PM RENEWABLE ENERGY CONSULTANT Narrative Organism Antibiotic Method Susceptibility Granulicatella adiacens [...] - MICRO GENERAL ORDERABLES [facility] Inf. Diseases Diag. Lab [address] [facility], Room [address] [address] [phone] * Fungus Culture, non-blood (06/30/2023 11:00 AM RENEWABLE ENERGY CONSULTANT) Culture No Growth BHAVIN 07/28/2023 8:33 AM CDT [facility] Tissue STRUCTURE OF CORNEA OF RIGHT EYE / Unknown Non-blood Collection / Unknown 06/30/2023 11:00 AM RENEWABLE ENERGY CONSULTANT 06/30/2023 12:41 PM RENEWABLE ENERGY CONSULTANT Rene Grant MD LAB - MICRO GENERAL ORDERABLES [facility] Inf. Diseases Diag. Lab [address] [facility], Room [address] [address] * Parasite Culture (06/30/2023 11:00 AM RENEWABLE ENERGY CONSULTANT) Culture Negative for Amoebae after 10 days of incubation BHAVIN 07/10/2023 7:26 AM RENEWABLE ENERGY CONSULTANT [facility] Direct Stain Negative for Amoebae 07/10/2023 7:26 AM RENEWABLE ENERGY CONSULTANT [facility] Comment:Results reviewed by Fabricio Monterroso, Ph.D., Manager Research And Development Room Service Attendant. 06/30/23 Tissue STRUCTURE OF CORNEA OF RIGHT EYE / Unknown Non-blood Collection / Unknown 06/30/2023 11:00 AM RENEWABLE ENERGY CONSULTANT 06/30/2023 12:42 PM RENEWABLE ENERGY CONSULTANT Rene Grant MD LAB - MICRO GENERAL ORDERABLES Performing Organization Address City/[facility]/ZIP Co de Phone Number [facility] Inf. Diseases Diag. Lab [address] [facility], Room [address] [address], [facility] [phone] * Taylor prep (06/30/2023 11:00 AM RENEWABLE ENERGY CONSULTANT) TAYLOR Preparation No fungal elements seen 06/30/2023 2:04 PM RENEWABLE ENERGY CONSULTANT [facility] TAYLOR Preparation Reference Range: No fungal elements seen. 06/30/2023 2:04 PM RENEWABLE ENERGY CONSULTANT [facility] Tissue STRUCTURE OF CORNEA OF RIGHT EYE / Unknown Non-blood Collection / Unknown 06/30/2023 11:00 AM RENEWABLE ENERGY CONSULTANT 06/30/2023 12:41 PM RENEWABLE ENERGY CONSULTANT Rene Grant MD LAB - MICRO GENERAL ORDERABLES [facility] Inf. Diseases Diag. Lab [address] [facility], Room [address] [address], [facility] [phone] * (ABNORMAL) Gram stain (06/30/2023 11:00 AM RENEWABLE ENERGY CONSULTANT) Gram Stain Result 4+ Gram positive cocci(A) 06/30/2023 2:09 PM RENEWABLE ENERGY CONSULTANT [facility] Gram Stain Result 4+ Gram negative bacilli(A) 06/30/2023 2:09 PM RENEWABLE ENERGY CONSULTANT [facility] Gram Stain Result 2+ Gram positive bacilli(A) 06/30/2023 2:09 PM RENEWABLE ENERGY CONSULTANT [facility] Gram Stain Result 4+ WBC seen(A) 06/30/2023 2:09 PM RENEWABLE ENERGY CONSULTANT [facility] Comment:Predominantly PMNs Tissue STRUCTURE OF CORNEA OF RIGHT EYE / Unknown Non-blood Collection / Unknown 06/30/2023 11:00 AM RENEWABLE ENERGY CONSULTANT 06/30/2023 12:42 PM RENEWABLE ENERGY CONSULTANT Narrative [facility] - 06/30/2023 2:09 PM RENEWABLE ENERGY CONSULTANT Rene Grant MD LAB - MICRO GENERAL ORDERABLES Performing Organization Address City/[facility]/ZIP Co de Phone Number [facility] Inf. Diseases Diag. Lab [address] [facility], Room [address] [address], [facility] [phone] * Anaerobic bacterial culture (06/30/2023 11:00 AM RENEWABLE ENERGY CONSULTANT) Culture No anaerobic organisms isolated BHAVIN 07/07/2023 10:49 AM RENEWABLE ENERGY CONSULTANT [facility] Tissue STRUCTURE OF CORNEA OF RIGHT EYE / Unknown Non-blood Collection / Unknown 06/30/2023 11:00 AM RENEWABLE ENERGY CONSULTANT 06/30/2023 12:42 PM RENEWABLE ENERGY CONSULTANT Rene Grant MD LAB - MICRO GENERAL ORDERABLES Performing Organization Address [facility] de Phone Number [facility] Inf. Diseases Diag. Lab [address] [facility], Room [address] [address], [facility] [phone] * (ABNORMAL) TSH (07/22/2011 8:00 AM CDT) TSH 14.50(H) 0.4 - 5.0 mU/L [facility] Blood specimen (specimen) 07/22/2011 8:00 AM CDT 07/22/2011 8:14 AM CDT Yesenia Gomez MD LAB - BLOOD O RDERABLES [facility] * Basic metabolic panel (07/22/2011 8:00 AM CDT) Sodium 138 133 - 144 mmol/L [facility] Potassium 4.2 3.4 - 5.3 mmol/L [facility] Chloride 107 94 - 109 mmol/L [facility] Carbon Dioxide 23 20 - 32 mmol/L [facility] Anion Gap 9 6 - 17 mmol/L [facility] Glucose 94 60 - 99 mg/dL [facility] Urea Nitrogen 14 5 - 24 mg/dL [facility] Creatinine 0.68 0.52 - 1.04 mg/dL [facility] GFR Estimate >90 >60 mL/min/1.7 m2 [facility] GFR Estimate If Black >90 >60 mL/min/1.7 m2 [facility] Calcium 9.1 8.5 - 10.4 mg/dL [facility] Blood specimen (specimen) 07/22/2011 8:00 AM CDT 07/22/2011 8:14 AM CDT Yesenia Gomez MD LAB - BLOOD O RDERABLES Performing Organization Address [facility]/ZIP Co de Phone Number [facility] * PAP SMEAR (10/02/1998 1:18 PM CDT) Unlabelled DNR [facility] Biopsy Sent DNR [facility] Source VAG,CERV,E NDOCERV [facility] LMP POST [facility] PARA 3 [facility] 2 [facility] Clinical History DNR [facility] Therapy DNR [facility] Last Pap Diagnosis WITHIN NORMAL LIMITS [facility] PAP Date [id number] [facility] Specimen # DNR [facility] Tissue DNR [facility] Tissue Date DNR [facility] Statement of Adequacy [facility] Comment: SATISFACTORY FOR INTERPRETATION POST MENOPAUSAL PATIENT. ??NO ENDOCERVICAL CELLS SEEN. General Categorization DNR [facility] Descriptive Diagnosis [facility] Comment: WITHIN NORMAL LIMITS ATROPHIC CELL PATTERN Recommendations DNR [facility] DNR 114,,,,,, [facility] DNR DNR [facility] DNR DNR [facility] DNR DNR [facility] . [facility] Comment: ?PAP SMEARS ARE SUBJECT TO BOTH FALSE NEGATIVE AND FALSE ? POSITIVE RESULTS EVIDENCED BY DATA PUBLISHED IN THE ? MEDICAL LITERATURE. ??YOUR PATIENT'S RESULT SHOULD BE ? INTERPRETED IN THIS CONTEXT, TOGETHER WITH THE PATIENT'S ? HISTORY AND CLINICAL FINDINGS. TESTING LOCATION ? THIS TEST [facility] PERFORMED AT [facility] ? [address] [facility]. [phone] ? PHONE NUMBERS FOR CYTOLOGY INQUIRES, INCLUDING SLIDE REQUESTS ? EXT. [id number] ?? EXT. 485 09/30/1998 Mary Morales MD LABORATORY Performing Organization Address City/State/ZIP Co id Phone Number [facility] from Last 3 Months or Most Recently Relevant to Health Maintenance Care Teams Underwriting Support Manager Relationship Specialty Start Date End Date Martina Strickland PA-C PCP - General Physician Manager Research And Development 07/19/19 Ailin Zavala MD Internal Medicine 07/28/11 Amadeo King MD [address] [place] [address] Ophthalmology 12/22/19 Joseph Trivedi MD [facility] [address] [address] Rheumatology 05/21/20 Rene Grant MD [address] [place] [address] Assigned Surgical Provider 09/12/22
--- OUTSIDE RECORDS SUMMARY | 2023-09-18 20:19 | XMS_ITS | Encounter Summary ---
Author Name Unknown Organization [facility] [facility] Address [address] [place] [address] Care Team Providers Care Rrt Name Role Phone Ailin Zavala MD Unavailable [phone] Martina Strickland PA-C Primary Care Provider Amadeo King MD Unavailable [phone] Joseph Trivedi MD Unavailable [phone] Rene Grant MD Unavailable [phone] Reason for Visit * Reason Comments Follow Up Corneal evaluation r ight eye Encounter Details Date Type Department Care Team (Late st Contact Info) Description 08/23/2023 3:00 PM CDT Office Visit [facility] Eye [place] [address] [facility] [address] [place] [address] Rene Grant MD [address] [place], [place] [address] Amadeo King MD 420 [facility] 493 [place], [place] [address] Corneal ulcer of right eye (Primary Dx); [...] 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 Llamas h/o Aqueous Misdirection [...] week Cydney [place] MD PGY3 Ophthalmology Resident [facility] Attending Physician Attestation: Complete documentation of historical [...] Description 09/20/2023 2:45 PM CDT Office Visit [facility] Eye [facility] - [place] [address] [facility] [address] [place] [phone] Amadeo King MD 420 [facility] 493 [place], [place] [address] 12/07/2023 3:10 PM CDT Office Visit [facility] Eye [facility] - [facility] [address] [facility] [address] [place] [phone] Emma Deshpande MD 516 [facility] [address] [place], [place] [address] documented as of this encounter Procedures Procedure [...] . Location: Right lower . Ref #: [id number]. Lot #: [id number] . Punctal Plug Insertion #4 Plan: Monitor, [...] glaucoma documented in this encounter Care Teams Rrt Relationship Specialty Start Date End Date Martina Strickland PA-C PCP - General Physician Rotary Veneer Machine Operator 07/19/19 Ailin Zavala MD Internal Medicine 07/28/11 Amadeo King MD 420 [facility] 493 [place], [place] [phone] Ophthalmology 12/22/19 Joseph Trivedi MD [facility] [address] [place], [place] [address] Rheumatology 05/21/20 Rene Grant MD 516 [place], [place] [address] Assigned Surgical Provider 09/12/22 documented as of this encounter
--- OUTSIDE RECORDS SUMMARY | 2023-09-18 20:19 | XMS_ITS | Encounter Summary ---
Author Name Unknown Organization [facility] Address [address] [place] [address] Care Team Providers Care Motivational Speaker Name Role Phone Ailin Zavala MD Unavailable [phone] Martina Strickland PA-C Primary Care Provider Amadeo King MD Unavailable [phone] Joseph Trivedi MD Unavailable [phone] Rene Grant MD Unavailable [phone] Encounter Details Date Type Department Care Team [...] Description 09/20/2023 2:45 PM CDT Office Visit [facility] Eye [address] 9 [address] Clin [address] [place] [address] Amadeo King MD 420 [facility] 493 [place], [place] [address] 12/07/2023 3:10 PM CDT Office Visit [facility] Eye [facility] 516 [facility] 9th Fl Clin [address] [place] [address] Emma Deshpande MD [address] [facility] [address] [place] [address] documented as of this encounter Visit Diagnoses Not on filedocumented in this encounter Care Teams Motivational Speaker Relationship Specialty Start Date End Date Martina Strickland PA-C PCP - General Physician Informatica 07/19/19 Ailin Zavala MD Internal Medicine 07/28/11 Amadeo King MD [address] [place] [address] Ophthalmology 12/22/19 Joseph Trivedi MD [facility] [address] [facility] 215 [place], [place] [address] Rheumatology 05/21/20 Rene Grant MD [address] [place] [address] Assigned Surgical Provider 09/12/22 documented as of this encounter
--- OUTSIDE RECORDS SUMMARY | 2023-09-18 20:19 | XMS_ITS | Encounter Summary ---
Author Name Unknown Organization [facility] Address [address] [place] [address] Care Team Providers Care National Accounts Sales Name Role Phone Ailin Zavala MD Unavailable [phone] Martina Strickland PA-C Primary Care Provider Amadeo King MD Unavailable [phone] Joseph Trivedi MD Unavailable [phone] Rene Grant MD Unavailable [phone] Reason for Visit * Reason Onset Date Comments Appointment 09/07/2023 2-3 week follow up Encounter Details Date Type Department Care Team (Late st Contact Info) Description 09/07/2023 Telephone [facility] Eye [facility] Emergency Department 516 [facility] 9[facility] [address] [place] [phone] Amadeo King MD [address] [address] Appointment (2-3 week follow up) Social History [...] Callie Norwood - 09/07/2023 11:22 AM CDT [facility] Call Center Phone Message May [...] Office Visit [facility] Eye Clinic - [facility] 516 [facility] 9th [address] Clin [address] [place] [address] Amadeo King MD 420 [facility] 493 [place] [address] 12/07/2023 3:10 PM CDT Office Visit [facility] Eye [facility] - [facility] 516 [facility] 9th [address] Clin [address] [place] [address] Emma Deshpande MD [address] [facility] [address] [place], [place] [address] documented as of this encounter Visit Diagnoses Not on filedocumented in this encounter Care Teams National Accounts Sales Relationship Specialty Start Date End Date Martina Strickland PA-C PCP - General Physician Cloth Measurer Machine 07/19/19 Ailin Zavala MD Internal Medicine 07/28/11 Amadeo King MD 420 [facility] 493 [place] [address] Ophthalmology 12/22/19 Joseph Trivedi MD [facility] [address] [place], [place] [address] Rheumatology 05/21/20 Rene Grant MD 516 [place] [address] Assigned Surgical Provider 09/12/22 documented as of this encounter
--- OUTSIDE RECORDS SUMMARY | 2023-09-18 20:19 | XMS_ITS | Encounter Summary ---
Author Name Unknown Organization [place] Address [address] [place] [address] Care Team Providers Care Truck Driver Salesperson Name Role Phone Ailin Zavala MD Unavailable [phone] Martina Strickland PA-C Primary Care Provider Amadeo King MD Unavailable [phone] Joseph Trivedi MD Unavailable [phone] Rene Grant MD Unavailable [phone] Encounter Details Date Type Department Care Team [...] Description 09/20/2023 2:45 PM CDT Office Visit [facility] Eye [address] 9 [address] Clin [address] [place] [phone] Amadeo King MD [address] [facility] 493 [place], [place] [address] 12/07/2023 3:10 PM CDT Office Visit [facility] Eye [facility] 516 [facility] 9[address] Clin [address] [place] [address] Emma Deshpande MD 516 [facility] [address] [place] [address] documented as of this encounter Visit Diagnoses Not on filedocumented in this encounter Care Teams Truck Driver Salesperson Relationship Specialty Start Date End Date Martina Strickland PA-C PCP - General Physician Lining Cleaner 07/19/19 Ailin Zavala MD Internal Medicine 07/28/11 Amadeo King MD [address] [place] [phone] Ophthalmology 12/22/19 Joseph Trivedi MD [facility] [address] [facility] 215 [place], [place] [address] Rheumatology 05/21/20 Rene Grant MD [address] [place] [id number] Assigned Surgical Provider 09/12/22 documented as of this encounter
--- OUTSIDE RECORDS SUMMARY | 2023-09-18 20:19 | XMS_ITS | Clinical Summary ---
Author Name Unknown Organization [facility] Address [address] [place] [address] Care Team Providers Care Elderly Sitter Name Role Phone Ailin Zavala MD Unavailable [phone] Martina Strickland PA-C Primary Care Provider Amadeo King MD Unavailable Joseph Trivedi MD Unavailable [phone] Rene Grant MD Unavailable [phone] Allergies Active Allergy Reactions Criticality Noted Date Comments Lidocaine Other (See Comments) 07/22/2011 can Other reaction(s): Get the MaulSoup Medications Medication Sig Dispensed Refills Start Date End Date Status metFORMIN (GLUCOPHAGE-XR) 500 MG 24 hr tablet Take 1,000 mg by mouth 2 times daily Active levothyroxine (SYNTHROID/LEVOTH ROID) 125 MCG tablet Take 125 mcg by mouth daily Active sodium chloride (RENA 128) 5 % ophthalmic solutionIndicatio ns: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,Post corneal transplant,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,Success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, right eye Place 1 [...] Type Department Care Team Description 09/14/[address] [address] Amadeo King MD Call Back 09/09/2023 MyC Medical Advice [address] [address] Noah [facility] 09/07/[address] [address] Amadeo King MD Appointment (2-3 week follow up) 08/30/2023 2:45 PM CDT Office Visit [address] [address] Amadeo Knig MD Corneal ulcer of right eye (Primary Dx); 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; Post corneal transplant 08/30/2023 Travel 08/23/2023 3:00 PM CDT Office Visit [address] [address] Rene Grant MD Hou, Joshua Honghan, MD Corneal ulcer of right eye (Primary Dx); 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; Persistent epithelial defect of right cornea; 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 08/23/2023 Travel 08/22/2023 Travel 08/09/2023 3:00 PM CDT Office Visit [address] [place] [address] Rene Grant MD Corneal ulcer of right eye (Primary Dx); 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 08/09/2023 Travel 07/26/2023 2:45 PM CDT Office Visit [address] [address] Rene Grant MD Corneal ulcer of right eye (Primary Dx); 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; Dry eye syndrome of both eyes 07/26/2023 Travel 2023 3:00 PM CDT Office Visit [address] [address] Rene Grant MD Corneal ulcer of right eye (Primary Dx); Persistent epithelial defect of right cornea; 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; Dry eye syndrome of both eyes 2023 Travel 07/16/[address] [address] Rene Grant MD Question (Ointment) 07/14/2023 2:45 PM PUBLIC RELATIONS CONSULTANT Office Visit [address] [address] Rene Grant MD Corneal ulcer of right eye (Primary Dx); Persistent epithelial defect of right cornea 07/14/2023 Travel 07/10/[address] [address] Amadeo Winston MD Medication Refill 07/09/2023 3:00 PM PUBLIC RELATIONS CONSULTANT Office Visit [address] [place] [address] Rene Grant MD Corneal ulcer of right eye (Primary Dx); History of corneal transplant - Right Eye; 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 07/09/2023 Travel 07/06/[address] [address] Rene Grant MD Patient Request (Lab Orders Faxed) 07/05/2023 12:30 PM PUBLIC RELATIONS CONSULTANT Office Visit [address] [address] Rene Grant MD Corneal ulcer of right eye (Primary Dx); History of corneal transplant - Right Eye; 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 07/05/2023 Travel 07/02/2023 3:00 PM PUBLIC RELATIONS CONSULTANT Office Visit [address] [address] Rene Grant MD 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) 07/02/2023 Travel 06/30/2023 9:30 AM PUBLIC RELATIONS CONSULTANT Office Visit [address] [address] Amadeo Winston MD Chanbour, Wassef, MD 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); History of corneal transplant - Right Eye; 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 06/30/2023 Travel 06/29/[address] [address] Rene Grant MD Symptoms (White spot on [...] PM CDT Office Visit [facility] - [address] 9 [address] Clin 9A [place] [address] Amadeo King MD [address] [place] [address] 12/07/2023 3:10 PM CDT Office Visit [facility] - [address] 9[address] Fl Clin 9A [place] [address] Emma Deshpande MD [address] [place] [address] [address] [place] [address] Health Maintenance Due Date Last Done Comments [...] NON SUTURE OD Routine 07/14/2023 10:10 PM PUBLIC RELATIONS CONSULTANT 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 ULTRASOUND B-SCAN OD (RIGHT EYE) Routine 07/05/2023 2:05 PM PUBLIC RELATIONS CONSULTANT Corneal ulcer of right eye SLIT LAMP PHOTOS OD (RIGHT EYE) Routine 07/05/2023 2:05 PM PUBLIC RELATIONS CONSULTANT Corneal ulcer of right eye ULTRASOUND B-SCAN OD (RIGHT EYE) Routine 07/02/2023 4:01 PM PUBLIC RELATIONS CONSULTANT Central corneal ulcer of right eye CORNEAL CULTURE OD (RIGHT EYE) Routine 06/30/2023 11:22 AM PUBLIC RELATIONS CONSULTANT Central corneal ulcer of right eye SLIT LAMP PHOTOS OD (RIGHT EYE) Routine 06/30/2023 11:22 AM PUBLIC RELATIONS CONSULTANT Central corneal ulcer of right eye GRAM STAIN Routine 06/30/2023 11:00 AM PUBLIC RELATIONS CONSULTANT Central corneal ulcer of right eye AEROBIC BACTERIAL CULTURE ROUTINE Routine 06/30/2023 11:00 AM PUBLIC RELATIONS CONSULTANT Central corneal ulcer of right eye AMOEBA CULTURE Routine 06/30/2023 11:00 AM PUBLIC RELATIONS CONSULTANT Central corneal ulcer of right eye FUNGAL OR YEAST CULTURE ROUTINE Routine 06/30/2023 11:00 AM PUBLIC RELATIONS CONSULTANT Central corneal ulcer of right eye ANAEROBIC BACTERIAL CULTURE ROUTINE Routine 06/30/2023 11:00 AM PUBLIC RELATIONS CONSULTANT Central corneal ulcer of right eye TAYLOR PREP Routine 06/30/2023 11:00 AM PUBLIC RELATIONS CONSULTANT Central corneal ulcer of right eye [...] . Location: Right lower . Ref #: [id number]. Lot #: [id number] . Punctal Plug Insertion #4 Plan: Monitor, [...] Membrane Non Suture OD (07/14/2023 10:10 PM PUBLIC RELATIONS CONSULTANT) Rnee Saravia MD - 07/14/2023 10:10 PM PUBLIC RELATIONS CONSULTANT Time out performed at: 3:21 PM . Preprocedure Medication: Proparacaine 2% solution . Plan: Monitor . Attending assisted by: Fellow . Notes Estuardo hart 2025-04-05 [id number] Cydney Madrid MD OPHTHALMOLOGY * Ultrasound B-scan OD (right eye) (07/05/2023 2:05 PM PUBLIC RELATIONS CONSULTANT) Only the most recent of2 resultswithin the time period is included. Rene Saravia MD - 07/05/2023 2:05 PM PUBLIC RELATIONS CONSULTANT Patient cooperation: Reliable . Reliability of the test: Good . Test Findings: Normal . Interpretation: Normal . Interval: Same . Notes Vitreous floaters no endophthalmitis Rene Grant MD OPHTHALMOLOGY * Corneal Culture OD (right eye) (06/30/2023 11:22 AM PUBLIC RELATIONS CONSULTANT) Rene Saravia MD - 06/30/2023 11:22 AM PUBLIC RELATIONS CONSULTANT Sign in/Time Out: Sign in communication [...] Routine Without Gram Stain (06/30/2023 11:00 AM PUBLIC RELATIONS CONSULTANT) Culture 15-50 CFU Granulicatella adiacens(A) BHAVIN 07/04/2023 10:10 AM PUBLIC RELATIONS CONSULTANT [facility] Tissue STRUCTURE OF CORNEA OF RIGHT EYE / Unknown Non-blood Collection / Unknown 06/30/2023 11:00 AM PUBLIC RELATIONS CONSULTANT 06/30/2023 12:41 PM PUBLIC RELATIONS CONSULTANT Narrative Organism Antibiotic Method Susceptibility Granulicatella [...] - MICRO GENERAL ORDERABLES [facility] Inf. Diseases Diag. Lab [address] [facility], [address] [address] [phone] * Fungus Culture, non-blood (06/30/2023 11:00 AM PUBLIC RELATIONS CONSULTANT) Culture No Growth BHAVIN 07/28/2023 8:33 AM CDT [facility] Tissue STRUCTURE OF CORNEA OF RIGHT EYE / Unknown Non-blood Collection / Unknown 06/30/2023 11:00 AM PUBLIC RELATIONS CONSULTANT 06/30/2023 12:41 PM PUBLIC RELATIONS CONSULTANT Rene Grant MD LAB - MICRO GENERAL ORDERABLES [facility] Inf. Diseases Diag. Lab [address] [facility], [address] [address] * Parasite Culture (06/30/2023 11:00 AM PUBLIC RELATIONS CONSULTANT) Culture Negative for Amoebae after 10 days of incubation BHAVIN 07/10/2023 7:26 AM PUBLIC RELATIONS CONSULTANT [facility] Direct Stain Negative for Amoebae 07/10/2023 7:26 AM PUBLIC RELATIONS CONSULTANT [facility] Comment:Results reviewed by Fabricio Monterroso, Ph.D., Casino Floor Person Director Of Dietary. 06/30/23 Tissue STRUCTURE OF CORNEA OF RIGHT EYE / Unknown Non-blood Collection / Unknown 06/30/2023 11:00 AM PUBLIC RELATIONS CONSULTANT 06/30/2023 12:42 PM PUBLIC RELATIONS CONSULTANT Rene Grant MD LAB - MICRO GENERAL ORDERABLES Performing Organization Address City/[facility]/ZIP Co de Phone Number [facility] Inf. Diseases Diag. Lab [address] [facility], [address] [address], [facility] [phone] * Taylor prep (06/30/2023 11:00 AM PUBLIC RELATIONS CONSULTANT) TAYLOR Preparation No fungal elements seen 06/30/2023 2:04 PM PUBLIC RELATIONS CONSULTANT [facility] TAYLOR Preparation Reference Range: No fungal elements seen. 06/30/2023 2:04 PM PUBLIC RELATIONS CONSULTANT [facility] Tissue STRUCTURE OF CORNEA OF RIGHT EYE / Unknown Non-blood Collection / Unknown 06/30/2023 11:00 AM PUBLIC RELATIONS CONSULTANT 06/30/2023 12:41 PM PUBLIC RELATIONS CONSULTANT Rene Grant MD LAB - MICRO GENERAL ORDERABLES [facility] Inf. Diseases Diag. Lab [address] [facility], [address] [address], [facility] [phone] * (ABNORMAL) Gram stain (06/30/2023 11:00 AM PUBLIC RELATIONS CONSULTANT) Gram Stain Result 4+ Gram positive cocci(A) 06/30/2023 2:09 PM PUBLIC RELATIONS CONSULTANT [facility] Gram Stain Result 4+ Gram negative bacilli(A) 06/30/2023 2:09 PM PUBLIC RELATIONS CONSULTANT [facility] Gram Stain Result 2+ Gram positive bacilli(A) 06/30/2023 2:09 PM PUBLIC RELATIONS CONSULTANT [facility] Gram Stain Result 4+ WBC seen(A) 06/30/2023 2:09 PM PUBLIC RELATIONS CONSULTANT [facility] Comment:Predominantly PMNs Tissue STRUCTURE OF CORNEA OF RIGHT EYE / Unknown Non-blood Collection / Unknown 06/30/2023 11:00 AM PUBLIC RELATIONS CONSULTANT 06/30/2023 12:42 PM PUBLIC RELATIONS CONSULTANT Narrative [facility] - 06/30/2023 2:09 PM PUBLIC RELATIONS CONSULTANT Rene Grant MD LAB - MICRO GENERAL ORDERABLES Performing Organization Address City/[facility]/ZIP Co de Phone Number [facility] Inf. Diseases Diag. Lab [address] [facility], Room [place] [address], [facility] [phone] * Anaerobic bacterial culture (06/30/2023 11:00 AM PUBLIC RELATIONS CONSULTANT) Culture No anaerobic organisms isolated BHAVIN 07/07/2023 10:49 AM PUBLIC RELATIONS CONSULTANT [facility] Tissue STRUCTURE OF CORNEA OF RIGHT EYE / Unknown Non-blood Collection / Unknown 06/30/2023 11:00 AM PUBLIC RELATIONS CONSULTANT 06/30/2023 12:42 PM PUBLIC RELATIONS CONSULTANT Rene Grant MD LAB - MICRO GENERAL ORDERABLES Performing Organization Address [facility]/ZIP Co de Phone Number [facility] Inf. Diseases Diag. Lab [address] [facility], [address] [address], [facility] [phone] * (ABNORMAL) TSH (07/22/2011 8:00 AM CDT) TSH 14.50(H) 0.4 - 5.0 mU/L [facility] Blood specimen (specimen) 07/22/2011 8:00 AM CDT 07/22/2011 8:14 AM CDT Yesenia Gomez MD LAB - BLOOD O RDERABLES [facility] * Basic metabolic panel (07/22/2011 8:00 AM CDT) Sodium 138 133 - 144 mmol/L [facility] Potassium 4.2 3.4 - 5.3 mmol/L [facility] Chloride 107 94 - 109 mmol/L [facility] Carbon Dioxide 23 20 - 32 mmol/L [facility] Anion Gap 9 6 - 17 mmol/L [facility] Glucose 94 60 - 99 mg/dL [facility] Urea Nitrogen 14 5 - 24 mg/dL [facility] Creatinine 0.68 0.52 - 1.04 mg/dL [facility] GFR Estimate >90 >60 mL/min/1.7 m2 [facility] GFR Estimate If Black >90 >60 mL/min/1.7 m2 [facility] Calcium 9.1 8.5 - 10.4 mg/dL [facility] Blood specimen (specimen) 07/22/2011 8:00 AM CDT 07/22/2011 8:14 AM CDT Yesenia Gomez MD LAB - BLOOD O RDERABLES Performing Organization Address [facility]/ZIP Co de Phone Number [facility] * PAP SMEAR (10/02/1998 1:18 PM CDT) Unlabelled DNR [facility] Biopsy Sent DNR [facility] Source VAG,CERV,E NDOCERV [facility] LMP POST [facility] PARA 3 [facility] 2 [facility] Clinical History DNR [facility] Therapy DNR [facility] Last Pap Diagnosis WITHIN NORMAL LIMITS [facility] PAP Date [id number] [facility] Specimen # DNR [facility] Tissue DNR [facility] Tissue Date DNR [facility] Statement of Adequacy [facility] Comment: SATISFACTORY FOR INTERPRETATION POST MENOPAUSAL PATIENT. ??NO ENDOCERVICAL CELLS SEEN. General Categorization DNR [facility] Descriptive Diagnosis [facility] Comment: WITHIN NORMAL LIMITS ATROPHIC CELL PATTERN Recommendations DNR [facility] DNR 114,,,,,, [facility] DNR DNR [facility] DNR DNR [facility] DNR DNR [facility] . [facility] Comment: ?PAP SMEARS ARE SUBJECT TO BOTH FALSE NEGATIVE AND FALSE ? POSITIVE RESULTS EVIDENCED BY DATA PUBLISHED IN THE ? MEDICAL LITERATURE. ??YOUR PATIENT'S RESULT SHOULD BE ? INTERPRETED IN THIS CONTEXT, TOGETHER WITH THE PATIENT'S ? HISTORY AND CLINICAL FINDINGS. TESTING LOCATION ? THIS TEST WAS PERFORMED AT [facility] ? [address] [facility]. [address] ? PHONE NUMBERS FOR CYTOLOGY INQUIRES, INCLUDING SLIDE REQUESTS ? EXT. [id number] ?? EXT. [id number] 09/30/1998 Mary Morales MD LABORATORY [facility] from Last 3 Months or Most Recently Relevant to Health Maintenance Care Teams Elderly Sitter Relationship Specialty Start Date End Date Maritna Strickland PA-C PCP - General Physician Casino Floor Person 07/19/19 Ailin Zavala MD Internal Medicine 07/28/11 Amadeo King MD [address] [place] [address] Ophthalmology 12/22/19 Joseph Trivedi MD [facility] [address] [address] Rheumatology 05/21/20 Rene Grant MD [address] [place] [id number] Assigned Surgical Provider 09/12/22
--- OUTSIDE RECORDS SUMMARY | 2023-09-18 20:19 | XMS_ITS | Encounter Summary ---
Author Name Unknown Organization [facility] Address [address] [place] [address] Care Team Providers Care Cigar Head Piercer Name Role Phone Ailin Zavala MD Unavailable [phone] Martina Strickland PA-C Primary Care Provider Amadeo King MD Unavailable [phone] Joseph Trivedi MD Unavailable [phone] Rene Grant MD Unavailable [phone] Reason for Visit * Reason Comments Medication Refill Encounter Details Date Type Department Care Team (Late st Contact Info) Description 07/10/2023 Refill [facility] [address] [facility] 9th [address] [place] [address] Amadeo Winston MD [address] [place], [place] [id number] Medication Refill Social History Tobacco Use Types [...] Description 09/20/2023 2:45 PM CDT Office Visit [facility] [address] [facility] [address] [place] [address] Amadeo King MD 420 [facility] 493 [place] [address] 12/07/2023 3:10 PM CDT Office Visit [facility] [address] [facility] [address] [place] [address] Emma Deshpande MD 516 [facility] [address] [place], [place] [address] documented as of this encounter Visit Diagnoses 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 documented in this encounter Care Teams Cigar Head Piercer Relationship Specialty Start Date End Date Martina Strickland PA-C PCP - General Physician Civil Preparedness Coordinator 07/19/19 Ailin Zavala MD Internal Medicine 07/28/11 Amadeo King MD 420 [facility] [address] [place], [place] [address] Ophthalmology 12/22/19 Joseph Trivedi MD [facility] [address] [facility] [address] [place] [address] Rheumatology 05/21/20 Rene Grant MD 6 [place] [address] Assigned Surgical Provider 09/12/22 documented as of this encounter
--- OUTSIDE RECORDS SUMMARY | 2023-09-18 20:19 | XMS_ITS | Encounter Summary ---
Author Name Unknown Organization [place] Address [address] [place] [address] Care Team Providers Care Notcher Name Role Phone Ailin Zavala MD Unavailable [phone] Martina Strickland PA-C Primary Care Provider Amadeo King MD Unavailable [phone] Joseph Trivedi MD Unavailable [phone] Rene Grant MD Unavailable [phone] Reason for Visit * Reason Onset Date Comments Call Back 09/14/2023 Encounter Details Date Type Department Care Team (Late st Contact Info) Description 09/14/2023 Telephone [facility] [address] [facility] 9th [address] Clin [address] [place] [address] Amadeo King MD [address] [address] Call Back Social History Tobacco Use Types [...] encounter Miscellaneous Notes * Telephone Encounter - Jose Camara RN - 09/14/2023 3:20 PM CDT Labs faxed to lab per request-- [phone] Commented to fax results to [phone] Jose Camara RN 3:20 PM 09/14/23 * Telephone Encounter - Zara Stewart - 09/14/2023 3:11 PM CDT [facility] Phone Message May a detailed message be left on voicemail: yes Reason for Call: Other: pt is requesting a call back lisha from Susi or Florecita with Dr King, [facility] and there is no papers their or orders. Please contactpt LISHA if possible Thank you Action Taken: Message routed to: [facility] eye Travel Screening: Not Applicable documented in this encounter Plan of Treatment Upcoming Encounters Date Type Department Care Team (Late st Contact Info) Description 09/20/2023 2:45 PM CDT Office Visit [facility] [place] [address] [facility] 9[address] Clin [address] [place] [phone] Amadeo King MD 420 [facility] [address] [place], [place] [address] 12/07/2023 3:10 PM CDT Office Visit [facility] [address] [facility] 9th [address] Clin [address] [place] [address] Emma Deshpande MD 516 [facility] [address] [place], [place] [address] documented as of this encounter Visit Diagnoses Not on filedocumented in this encounter Care Teams Notcher Relationship Specialty Start Date End Date Martina Strickland PA-C PCP - General Physician Salvage Grinder 07/19/19 Ailin Zavala MD Internal Medicine 07/28/11 Amadeo King MD 420 [facility] [address] [place] [address] Ophthalmology 12/22/19 Joseph Trivedi MD [facility] [address] [address] Rheumatology 05/21/20 Rene Grant MD 516 [place] [address] Assigned Surgical Provider 09/12/22 documented as of this encounter
--- OUTSIDE RECORDS SUMMARY | 2023-09-18 20:19 | XMS_ITS | Encounter Summary ---
Author Name Unknown Organization [facility] Address [address] [place] [address] Care Team Providers Care Community Health Advocate Name Role Phone Ailin Zavala MD Unavailable [phone] Martina Strickland PA-C Primary Care Provider Amadeo King MD Unavailable [phone] Joseph Trivedi MD Unavailable [phone] Rene Grant MD Unavailable [phone] Reason for Visit * Reason Comments Corneal Ulcer Follow Up Corneal ulcer of right eye Encounter Details Date Type Department Care Team (Late st Contact Info) Description 08/30/2023 2:45 PM CDT Office Visit [facility] [address] [facility] 9[address] Clin 9[address] [place] [phone] Amadeo King MD [address] [address] Corneal ulcer of right eye (Primary Dx); [...] 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 Llamas h/o Aqueous [...] Description 09/20/2023 2:45 PM CDT Office Visit [facility] [place] [address] [facility] [address] Clin [address] [place] [address] Amadeo King MD [address] [place] [address] 493 [place], [place] [address] 12/07/2023 3:10 PM CDT Office Visit [facility] - [address] 9th [address] Clin [address] [place] [address] Emma Deshpande MD 516 [facility] [address] [place], [place] [address] documented as of this encounter Visit Diagnoses Diagnosis Corneal ulcer of right eye- Primary Corneal ulcer, unspecified 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
--- OUTSIDE RECORDS SUMMARY | 2023-09-18 20:19 | XMS_ITS | Encounter Summary ---
Author Name Unknown Organization [facility] Address [address] [place] [address] Care Team Providers Care Mechanical Inspector Name Role Phone Ailin Zavala MD Unavailable [phone] Martina Strickland PA-C Primary Care Provider Amadeo King MD Unavailable [phone] Joseph Trivedi MD Unavailable [phone] Rene Grant MD Unavailable [phone] Encounter Details Date Type Department Care Team [...] PM CDT Office Visit [facility] [address] [place] [address] Amadeo King MD 420 [facility] 493 [place], [place] [address] 12/07/2023 3:10 PM CDT Office Visit [facility] 516 [facility] 9th Fl Clin [address]A [place] [address] Emma Deshpande MD 516 [facility] [address] [place] [address] documented as of this encounter Visit Diagnoses Not on filedocumented in this encounter Care Teams Mechanical Inspector Relationship Specialty Start Date End Date Martina Strickland PA-C PCP - General Physician Sheet Metal Apprentice 07/19/19 Ailin Zavala MD Internal Medicine 07/28/11 Amadeo King MD [address] [place] [address] Ophthalmology 12/22/19 Joseph Trivedi MD [facility] [address] [facility] 215 [place], [place] [address] Rheumatology 05/21/20 Rene Grant MD [address] [place] [address] [id number] Assigned Surgical Provider 09/12/22 documented as of this encounter
--- OUTSIDE RECORDS SUMMARY | 2023-09-18 20:19 | XMS_ITS | Encounter Summary ---
Author Name Unknown Organization [place] Address [address] [place] [address] Care Team Providers Care Luggage Repairer Name Role Phone Ailin Zavala MD Unavailable [phone] Martina Strickland PA-C Primary Care Provider Amadeo King MD Unavailable [phone] Joseph Trivedi MD Unavailable [phone] Rene Grant MD Unavailable [phone] Reason for Visit * Reason Comments Follow Up Corneal ulcer of rig ht eye Encounter Details Date Type Department Care Team (Late st Contact Info) Description 08/09/2023 3:00 PM CDT Office Visit [facility] [address] 9[facility] Clin 9A [place] [address] Rene Grant MD [address] [place] [address] Corneal ulcer of right eye (Primary Dx); [...] 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 Llamas h/o Aqueous Misdirection [...] weeks heaven and 1 month Christine LACEY RESEARCH INVESTIGATOR Attending Physician Attestation: Complete documentation of historical [...] Miscellaneous Notes * Addendum Note - Demetrius Casrtejon MD - 08/09/2023 3:00 PM CDTAddended by: DEMETRIUS CASTREJON on: 08/09/2023 04:02 PM Modules accepted: Orders documented in this encounter Plan of Treatment Upcoming Encounters Date Type Department Care Team (Late st Contact Info) Description 09/20/2023 2:45 PM CDT Office Visit [facility] Emergency Department 516 [facility] 9th Fl Clin 9A [place] [address] Amadeo King MD 420 [facility] 493 [place], [place] [address] 12/07/2023 3:10 PM CDT Office Visit [facility] Emergency Department 516 [facility] 9th Fl Clin 9A [place] [phone] Emma Deshpande MD 516 [facility] [address] 911 [place], [place] [address] Scheduled Orders Name Type Priority Associated Diagnoses [...] Eye documented in this encounter Care Teams Luggage Repairer Relationship Specialty Start Date End Date Martina Strickland PA-C PCP - General Physician Security Clerk 07/19/19 Ailin Zavala MD Internal Medicine 07/28/11 Amadeo King MD 420 [facility] 493 [place], [place] 8[address] Ophthalmology 12/22/19 Joseph Trivedi MD [facility] [address] 8260[address] Rheumatology 05/21/20 Rene Grant MD [address] [place] [address] [phone] Assigned Surgical Provider 09/12/22 documented as of this encounter
--- OUTSIDE RECORDS SUMMARY | 2023-09-18 20:19 | XMS_ITS | Encounter Summary ---
Author Name Unknown Organization [place] Address [address] [place] [address] Care Team Providers Care Celebrity Chef Entrepreneur Media Personality Name Role Phone Ailin Zavala MD Unavailable [phone] Martina Strickland PA-C Primary Care Provider Amadeo King MD Unavailable [phone] Joseph Trivedi MD Unavailable [phone] Rene Grant MD Unavailable [phone] Reason for Visit * Reason Comments Corneal Ulcer Follow Up Encounter Details Date Type Department Care Team (Late st Contact Info) Description 2023 3:00 PM CDT Office Visit [facility] Eye [address] [place] [address] 9[facility] Clin 9A [place] [address] Rene Grant MD [address] [place] [address] Corneal ulcer of right eye (Primary Dx); [...] 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 Llamas h/o Aqueous Misdirection [...] Yag Cap 05/2020 Follow up: Wednesday [place] MONITORING AND EVALUATION ADVISOR Cydney [place] MD PGY3 Ophthalmology Resident [facility] Attending Physician Attestation: Complete documentation of historical [...] 09/20/2023 2:45 PM CDT Office Visit [facility] Eye [facility] 516 [facility] 9th Tx Clin 9A [place] [address] Amadeo King MD 420 [facility] 493 [place], [place] [address] 12/07/2023 3:10 PM CDT Office Visit [facility] Eye [facility] 516 [facility] 9th Fl Clin 9A [place] [phone] Emma Deshpande MD 6 [facility] [address] 911 [place], [place] 8[address] documented as of this encounter Visit Diagnoses Diagnosis Corneal ulcer of right eye- Primary Corneal ulcer, unspecified 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 documented in this encounter Care Teams Celebrity Chef Entrepreneur Media Personality Relationship Specialty Start Date End Date Martina Strickland PA-C PCP - General Physician Radio Sportscaster 07/19/19 Ailin Zavala MD Internal Medicine 07/28/11 Amadeo King MD 420 [facility] 493 [place], [place] [address] Ophthalmology 12/22/19 Joseph Trivedi MD [facility] [address] [facility] 215 [place] [address] Rheumatology 05/21/20 Rene Grant MD 516 [place] [address] Assigned Surgical Provider 09/12/22 documented as of this encounter
--- OUTSIDE RECORDS SUMMARY | 2023-09-18 20:19 | XMS_ITS | Encounter Summary ---
Author Name Unknown Organization [place] Address [address] [place] [address] Care Team Providers Care Yeast Culture Developer Name Role Phone Ailin Zavala MD Unavailable [phone] Martina Strickland PA-C Primary Care Provider Amadeo King MD Unavailable [phone] Joseph Trivedi MD Unavailable [phone] Rene Grant MD Unavailable [phone] Reason for Visit * Reason Comments Corneal Ulcer Follow Up Encounter Details Date Type Department Care Team (Late st Contact Info) Description 07/14/2023 2:45 PM WEIGH BOSS Office Visit [facility] Eye [address] 9[facility] Clin 9A [place] [address] Rene Grant MD [address] [place] [address] Corneal ulcer of right eye (Primary Dx); [...] 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 Llamas h/o Aqueous Misdirection [...] Yag Cap 05/2020 Follow up: Wednesday [place] CHILD MONITOR Cydney [place] MD Cornea and External Disease Fellow [facility] Attending Physician Attestation: Complete documentation of [...] Description 09/20/2023 2:45 PM CDT Office Visit [facility] 516 [facility] 9th Or Clin 9A [place] [address] Amadeo King MD 420 [facility] 493 [place] [address] 12/07/2023 3:10 PM CDT [facility] Visit [facility] 516 [facility] 9th Fl Clin 9A [place] [address] Emma Deshpande MD 516 [facility] [address] 911 [place], [place] 7[address] documented as of this encounter Procedures Procedure Name Priority Date/Time Associated Diagnosis Comments AMNIOTIC MEMBRANE NON SUTURE OD Routine 07/14/2023 10:10 PM WEIGH BOSS 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 Preprocedure Medication: Proparacaine 2% solution . Plan: Monitor . Attending assisted by: Fellow . Notes Estuardo hart 2025-04-05 [id number] Cydney Madrid MD OPHTHALMOLOGY documented in this encounter Visit Diagnoses Diagnosis Corneal ulcer of right eye- Primary Corneal ulcer, unspecified Persistent epithelial defect of right cornea documented in this encounter Care Teams Yeast Culture Developer Relationship Specialty Start Date End Date Martina Strickland PA-C PCP - General Physician Family Preservation Worker 07/19/19 Ailin Zavala MD Internal Medicine 07/28/11 Amadeo King MD 420 [facility] 493 [place], [place] [address] Ophthalmology 12/22/19 Joseph Trivedi MD [facility] [address] [facility] 215 [place], [place] [address] Rheumatology 05/21/20 Rene Grant MD 6 [place] [address] Assigned Surgical Provider 09/12/22 documented as of this encounter
--- OUTSIDE RECORDS SUMMARY | 2023-09-18 20:19 | XMS_ITS | Encounter Summary ---
Author Name Unknown Organization [place] Address [address] [place] [address] Care Team Providers Care Modeling Teacher Name Role Phone Ailin Zavala MD Unavailable [phone] Martina Strickland PA-C Primary Care Provider Amadeo King MD Unavailable [phone] Joseph Trivedi MD Unavailable [phone] Rene Grant MD Unavailable [phone] Reason for Visit * Reason Comments Corneal Ulcer Follow Up Corneal ulcer of right eye Encounter Details Date Type Department Care Team (Late st Contact Info) Description 07/26/2023 2:45 PM CDT Office Visit [facility] Eye [address] 9[facility] Clin 9A [place] [address] Rene Grant MD [address] [place] [address] Corneal ulcer of right eye (Primary Dx); [...] 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 Llamas h/o Aqueous [...] weeks heaven and 1 month Christine LACEY ACTUARIAL CLERK Attending Physician Attestation: Complete documentation of historical [...] with the patient and family. - Rene Gratn MD documented in this encounter Nursing Notes [...] Description 09/20/2023 2:45 PM CDT Office Visit [facility] 516 [facility] 9th Wi Clin 9A [place] [address] Amadeo King MD 420 [facility] 493 [place] [address] 12/07/2023 3:10 PM CDT Office Visit [facility] Eye [facility] 516 [facility] 9th Wi Clin 9A [place] [address] Emma Deshpande MD 516 [facility] [address] 911 [place] [address] documented as of this encounter Procedures Procedure [...] eyes documented in this encounter Care Teams Modeling Teacher Relationship Specialty Start Date End Date Martina Strickland PA-C PCP - General Physician Senior Product Development Engineer 07/19/19 Ailin Zavala MD Internal Medicine 07/28/11 Amadeo King MD [address] [place] [address] Ophthalmology 12/22/19 Joseph Trivedi MD [facility] [address] [address] Rheumatology 05/21/20 Rene Grant MD 516 [place] [address] Assigned Surgical Provider 09/12/22 documented as of this encounter
--- OUTSIDE RECORDS SUMMARY | 2023-09-18 20:19 | XMS_ITS | Encounter Summary ---
Author Name Unknown Organization [place] Address [address] [place] [address] Care Team Providers Care Telecom Analyst Name Role Phone Ailin Zavala MD Unavailable [phone] Martina Strickland PA-C Primary Care Provider Amadeo King MD Unavailable [phone] Joseph Trivedi MD Unavailable [phone] Rene Grant MD Unavailable [phone] Encounter Details Date Type Department Care Team [...] 2:45 PM CDT Office Visit [facility] [address] 9 [address] Clin 9A [place] [phone] Amadeo King MD 420 [facility] 493 [place], [place] [address] 12/07/2023 3:10 PM CDT Office Visit [facility] [place] Emergency Department 516 [facility] 9th Fl Clin 9A [place] [address] Emma Deshpande MD 516 [facility] [address] 911 [place] [address] documented as of this encounter Visit Diagnoses Not on filedocumented in this encounter Care Teams Telecom Analyst Relationship Specialty Start Date End Date Martina Strickland PA-C PCP - General Physician Railroad Track Mechanic 07/19/19 Ailin Zavala MD Internal Medicine 07/28/11 Amadeo King MD [address] [place] [address] 802575 Ophthalmology 12/22/19 Joseph Trivedi MD [facility] [address] [facility] 215 [place], [place] 68[address] Rheumatology 05/21/20 Rene Grant MD [address] [place] [address] 600615 Assigned Surgical Provider 09/12/22 documented as of this encounter
--- OUTSIDE RECORDS SUMMARY | 2023-09-18 20:20 | XMS_ITS | Encounter Summary ---
Author Name Unknown Organization [place] Address [address] [place] [address] Care Team Providers Care Dent Remover Name Role Phone Ailin Zavala MD Unavailable [phone] Martina Strickland PA-C Primary Care Provider Amadeo King MD Unavailable [phone] Joseph Trivedi MD Unavailable [phone] Rene Grant MD Unavailable [phone] Reason for Visit * Reason Onset Date Comments Patient Request 07/06/2023 Lab Orders Faxed Encounter Details Date Type Department Care Team (Late st Contact Info) Description 07/06/2023 Telephone [facility] [address] 9[facility] Clin 9A [place] [phone] Rene Grant MD [address] [place] [address] Patient Request (Lab Orders Faxed) Social History [...] Wednesday for her appointment Sarai Ricks Communication Fence Installer Helper on 07/06/2023 at 2:58 PM NUE FIELD AUDITOR * Telephone Encounter - Martina Silveira - 07/06/2023 12:36 PM CST [facility] Phone Message May a detailed message be left on voicemail: yes Reason for Call: Other: Pt is requesting her lab orders be sent over to the [facility]. States she is supposed to get some blood work done for her medication but is unable to without the lab order faxed. [facility] states pt would need the order in prior to scheduling. Please fax orders to: [facility] Thank You! Action Taken: Message routed to: [facility] eye Travel Screening: Not Applicable NUE FIELD AUDITOR documented in this encounter Plan of Treatment Upcoming Encounters Date Type Department Care Team (Late st Contact Info) Description 09/20/2023 2:45 PM CDT [facility] Visit [facility] [place] [phone] [facility] 9th Sc Clin 9A [place] [address] Amadeo King MD [address] [place] [address] 12/07/2023 3:10 PM CDT Office Visit [facility] [place] 901406 [facility] 9th Sc Clin 9A [place] [address] Emma Deshpande MD 516 [facility] 911 [place], [place] [address] documented as of this encounter Visit Diagnoses Not on filedocumented in this encounter Care Teams Dent Remover Relationship Specialty Start Date End Date Martina Strickland PA-C PCP - General Physician Rehabilitation Therapy Technician 07/19/19 Ailin Zavala MD Internal Medicine 07/28/11 Amadeo King MD 420 [facility] 493 [place], [place] [address] Ophthalmology 12/22/19 Joseph Trivedi MD [facility] [address] [facility] 215 [place], [place] [address] Rheumatology 05/21/20 Rene Grant MD [address] [place] [address] 631915 Assigned Surgical Provider 09/12/22 documented as of this encounter
--- OUTSIDE RECORDS SUMMARY | 2023-09-18 20:20 | XMS_ITS | Encounter Summary ---
Author Name Unknown Organization [place] Address [address] [place] [address] Care Team Providers Care Dialysis Clinical Manager Name Role Phone Ailin Zavala MD Unavailable [phone] Martina Strickland PA-C Primary Care Provider Amadeo Knig MD Unavailable + [phone] Claduia Marcus MD Unavailable [phone] Amadeo King MD Unavailable + [phone] Joseph Trivedi MD Unavailable [phone] Claudia Marcus MD Unavailable [phone] Emma Deshpande MD Unavailable + [phone] Kishan Spain OD Unavailable +[phone] Emma Deshpande MD Unavailable [phone] Kishan Spain OD Unavailable +[phone] Emma Deshpande MD Unavailable + [phone] eRne Grant MD Unavailable [phone] Amadeo Winston MD Unavailable [phone] Amadeo Winston MD Unavailable +[phone] Rene Grant MD Unavailable +[phone] Rene Grant MD Unavailable [phone] Reason for Visit * Reason Onset Date Comments Medication Question 01/22/2020 Encounter Details Date Type Department Care Team ([facility] Contact Info) Description 01/22/2020 Telephone [facility] [place] [phone] [facility] 9th Dc Clin 9A [place] [address] Amadeo King MD [address] [phone] Medication Question Social History Tobacco Use Types [...] Robin Luu - 01/22/2020 1:39 PM CDT [facility] Phone Message May a detailed message be left on voicemail: yes Reason for Call: Medication Question or concern regarding medication Prescription Clarification Name of Medication: cyclosporine, combigan, prednisone eye drop Prescribing Provider: [facility] Pharmacy: [id number] [address] [facility] [address] And [facility] What on the order needs clarification? Pt is running low. Cyclosporine should be sent to [facility] pharmacy. The other two rx should go to pharmacy above. Action Taken: Other: eye Travel Screening: Not Applicable documented in this encounter Plan of Treatment Upcoming Encounters Date Type Department Care Team ([facility] Contact Info) Description 09/20/2023 2:45 PM CDT Office Visit [facility] [address] 9[facility] Clin 9A [place] [address] Amadeo King MD 420 [facility] 493 [place] [address] 12/07/2023 3:10 PM CDT Office Visit [facility] 516 [facility] 9 Dc Clin 9A [place] [address] Emma Deshpande MD 516 [facility] [address] 911 [place] [address] documented as of this encounter Visit Diagnoses Not on filedocumented in this encounter Care Teams Dialysis Clinical Manager Relationship Specialty Start Date End Date Martina Strickland PA-C PCP - General Physician Trout Farmer 07/19/19 Ailin Zavala MD Internal Medicine 07/28/11 Amadeo King MD [address] [place] [address] Ophthalmology 12/22/19 Claudia Marcus MD [facility] [address] [place] [address] Assigned Surgical Provider 03/01/20 05/25/20 Amadeo King MD [address] [place] [address] Assigned PCP 04/07/20 06/02/23 Joseph Trivedi MD [facility] [address] [facility] 215 [place] [address] Rheumatology 05/21/20 Claudia Marcus MD [facility] [address] [place] [address] Assigned Surgical Provider 06/30/20 10/19/20 Emma Deshpande MD [address] [place] [address] 940155 Assigned Surgical Provider 05/26/20 06/29/20 Kishan Spain, OD [address] [place] [phone] Assigned Surgical Provider 10/20/20 11/23/20 Emma Deshpande MD [address] [place] [address] 194695 Assigned Surgical Provider 11/24/20 12/07/20 Kishan Spain, OD [address] [place] [address] Assigned Surgical Provider 12/08/20 03/27/22 Emma Deshpande MD [address] [place] [address] 792585 Assigned Surgical Provider 03/28/22 04/03/22 Rene Grant MD [address] [place] [address] 504985 Assigned Surgical Provider 04/04/22 08/21/22 Amadeo Winston MD [address] [place] [address] 358425 Assigned Surgical Provider 08/22/22 08/28/22 Amadeo Winston MD [address] [place] [address] Assigned Surgical Provider 09/05/22 09/11/22 Rene Grant MD [address] [place] [address] 173895 Assigned Surgical Provider 08/29/22 09/04/22 Rene Grant MD [address] [place] [address] 085645 Assigned Surgical Provider 09/12/22 documented as of this encounter
--- OUTSIDE RECORDS SUMMARY | 2023-09-18 20:20 | XMS_ITS | Encounter Summary ---
Author Name Unknown Organization [place] Address [address] [place] [address] Care Team Providers Care Tank Tester Name Role Phone Ailin Zavala MD Unavailable [phone] Martina Strickland PA-C Primary Care Provider Amadeo King MD Unavailable [phone] Joseph Trivedi MD Unavailable [phone] Rene Grant MD Unavailable [phone] Reason for Visit * Reason Comments Follow Up Central corneal ulce r of right eye Encounter Details Date Type Department Care Team (Late st Contact Info) Description 07/02/2023 3:00 PM FLAT SURFACER Office Visit [facility] [address] 9[facility] Clin 9A [place] [address] Rene Grant MD [address] [place] [address] Central corneal ulcer of right eye (Primary [...] DM s DR -- was following at [facility] with Dr. Llamas h/o Aqueous Misdirection [...] Yag Cap 05/2020 Follow up: Wednesday [place] GUM MIXER Bscan Attending Physician Attestation: Complete documentation of [...] patient and family. - Rene Grant MD SURFACER documented in this encounter Plan of Treatment Upcoming Encounters Date Type Department Care Team (Late st Contact Info) Description 09/20/2023 2:45 PM CDT Office Visit [facility] [place] [phone] [facility] 9[facility] 9A [place] [address] Amadeo King MD 420 [facility] 493 [place] [address] 12/07/2023 3:10 PM CDT Office Visit [facility] [place] [phone] [facility] 9th [facility] 9A [place] [address] Emma Deshpande MD 516 [facility] 911 [place] [address] documented as of this encounter Procedures Procedure Name Priority Date/Time Associated Diagnosis Comments ULTRASOUND B-SCAN OD (RIGHT EYE) Routine 07/02/2023 4:01 PM FLAT SURFACER Central corneal ulcer of right eye documented in this encounter Results * Ultrasound B-scan OD (right eye) (07/02/2023 4:01 PM FLAT SURFACER) Narrative Rene Grant MD - 07/02/2023 4:53 PM FLAT SURFACER Patient cooperation: Reliable . Reliability of the test: Good . Test Findings: Normal . Interpretation: Normal . Plan: Monitor, Adjust medications . Interval: Initial . 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
--- OUTSIDE RECORDS SUMMARY | 2023-09-18 20:20 | XMS_ITS | Encounter Summary ---
Author Name Unknown Organization [place] Address [address] [place] [address] Care Team Providers Care Tourist Agent Name Role Phone Ailin Zavala MD Unavailable [phone] Martina Strickland PA-C Primary Care Provider Amadeo King MD Unavailable + [phone] Claudia Marcus MD Unavailable [phone] Amadeo King MD Unavailable + 5-0 Joseph Trivedi MD Unavailable +[phone] Claudia Marcus MD Unavailable [phone] Emma Deshpande MD Unavailable + 2-0 Kishan Spain OD Unavailable +[phone] Emma Deshpande MD Unavailable + [phone] Kishan Spain OD Unavailable +[phone] Emma Deshpande MD Unavailable + 2-0 Rene Grant MD Unavailable +[phone] Amadeo Winston MD Unavailable +[phone] Amadeo Winston MD Unavailable +[phone] Rene Grant MD Unavailable +-[phone] Rene Grant MD Unavailable +[phone] Reason for Visit * Reason Onset Date Comments Appointment 11/27/[address] King Encounter Details Date Type Department Care Team (Late Contact Info) Description 11/27/2019 Telephone [facility] 516 [facility] 9th Fl Clin 9A [place] [phone] Amadeo King MD 420 [facility] 493 [place], [place] 464[address] Appointment (Appt with Dr King) Social History [...] Tania Marin - 11/27/2019 8:58 AM CDT [facility] Phone Message May a detailed message [...] Description 09/20/2023 2:45 PM CDT Office Visit [facility] 516 [facility] 9th Fl Clin 9A [place] [address] Amadeo King MD 420 [facility] 493 [place] [address] 12/07/2023 3:10 PM CDT Office Visit [facility] 516 [facility] 9th Fl Clin 9A [place] [phone] Emma Deshpande MD 516 [facility] [address] 911 [place], [place] 121605 documented as of this encounter Visit Diagnoses Not on filedocumented in this encounter Care Teams Tourist Agent Relationship Specialty Start Date End Date Martina Strickland PA-C PCP - General Physician Commercial Finance Manager 07/19/19 Ailin Zavala MD Internal Medicine 07/28/11 Amadeo King MD [address] [place] [address] 493 [place] [address] Ophthalmology 12/22/19 Claudia Marcus MD [facility] EYE [facility] [address] [place] [phone] Assigned Surgical Provider 03/01/20 05/25/20 Amadeo King MD [address] [place] [address] 493 [place] [address] Assigned PCP 04/07/20 06/02/23 Joseph Trivedi MD [facility] [address] [facility] 215 [place] [address] Rheumatology 05/21/20 Claudia Marcus MD [facility] EYE [facility] [address] [place] [phone] Assigned Surgical Provider 06/30/20 10/19/20 Emma Deshpande MD [address] [place] [address] 155505 Assigned Surgical Provider 05/26/20 06/29/20 Kishan Spain, OD [address] [place] [phone] Assigned Surgical Provider 10/20/20 11/23/20 Emma Deshpande MD [address] [place] [address] Assigned Surgical Provider 11/24/20 12/07/20 Kishan Spain, OD [address] [place] [phone] Assigned Surgical Provider 12/08/20 03/27/22 Emma Deshpande MD [address] [place] [address]14 Assigned Surgical Provider 03/28/22 04/03/22 Rene Grant MD [address] [place] [address]34 Assigned Surgical Provider 04/04/22 08/21/22 Amadeo Winston MD [address] [place] [address]37 Assigned Surgical Provider 08/22/22 08/28/22 Amadeo Winston MD [address] [place] [address] 41398 Assigned Surgical Provider 09/05/22 09/11/22 Rene Grant MD [address] [place] [address] Assigned Surgical Provider 08/29/22 09/04/22 Rene Grant MD [address] [place] [address] 17448 Assigned Surgical Provider 09/12/22 documented as of this encounter
--- OUTSIDE RECORDS SUMMARY | 2023-09-18 20:20 | XMS_ITS | Encounter Summary ---
Author Name Unknown Organization [place] Address [address] [place] [address] Care Team Providers Care Analytic Manager Name Role Phone Ailin Zavala MD Unavailable [phone] Martina Strickland PA-C Primary Care Provider Amadeo [...] for return to work send back in [employer] Please Encounter Details Date Type Department Care Team ([facility] st Contact Info) Description 07/25/2019 Telephone [facility] 516 [facility] 9th Fl Clin 9A [place] [phone] Amadeo King MD 420 [facility] 493 [place], [place] 6299[address] Patient Request for Note/Letter (Pt needs the Exact date for return to work send back in [employer] Please) Social History Tobacco Use Types Packs/Day [...] Grace Potter - 07/25/2019 4:18 PM CDT [facility] Phone Message May a detailed message be left on voicemail: yes Reason for Call: Form or Letter Type or form/letter needing completion:Pt needs he exact date to retrun back to work Please send back in [employer] Provider: Dr Christine Arreguin form needed: JOSE MANUEL Once completed: Send back in [employer] Action Taken: Message routed to: [facility] eye Travel Screening: Not Applicable documented in this encounter Plan of Treatment Upcoming Encounters Date Type Department Care Team (Late st Contact Info) Description 09/20/2023 2:45 PM CDT Office Visit [facility] [address] 9th Fl Clin 9A [place] [phone] Amadeo King MD [address] [facility] 493 [place], [place] [address] 12/07/2023 3:10 PM CDT Office Visit [facility] [address] 9th Fl Clin 9A [place] [phone] Emma Deshpande MD [address] 911 [place], [place] 0[address] documented as of this encounter Visit Diagnoses Not on filedocumented in this encounter Care Teams Analytic Manager Relationship Specialty Start Date End Date Martina Strickland PA-C PCP - General Physician Diesel Inspector 07/19/19 Ailin Zavala MD Internal Medicine 07/28/11 Amadeo King MD [address] [facility] 493 [place], [place] 2622[address] Ophthalmology 12/22/19 Claudia Marcus MD [facility] EYE [facility] [address] [phone] Assigned Surgical Provider 03/01/20 05/25/20 Amadeo King MD [address] [facility] 493 [place] [address] Assigned PCP 04/07/20 06/02/23 Joseph Trivedi MD [facility] [address] [facility] 215 [place] [address] Rheumatology 05/21/20 Claudia Marcus MD [facility] EYE [facility] [address] [place] [phone] Assigned Surgical Provider 06/30/20 10/19/20 Emma Deshpande MD [address] [place] [address] Assigned Surgical Provider 05/26/20 06/29/20 Kishan Spain, OD [address] [place] [phone] Assigned Surgical Provider 10/20/20 11/23/20 Emma Deshpande MD [address] [place] [address] 986745 Assigned Surgical Provider 11/24/20 12/07/20 Kishan Spain, OD [address] [place] [phone] Assigned Surgical Provider 12/08/20 03/27/22 Emma Deshpande MD [address] [place] [address] 025335 Assigned Surgical Provider 03/28/22 04/03/22 Rene Grant MD [address] [place] [address] 683505 Assigned Surgical Provider 04/04/22 08/21/22 Amadeo Winston MD [address] [place] [address] 722355 Assigned Surgical Provider 08/22/22 08/28/22 Amadeo Winston MD [address] [place] [address] 147305 Assigned Surgical Provider 09/05/22 09/11/22 Rene Grant MD [address] [place] [address] 143755 Assigned Surgical Provider 08/29/22 09/04/22 Rene Grant MD [address] [place] [address] 708125 Assigned Surgical Provider 09/12/22 documented as of this encounter
--- OUTSIDE RECORDS SUMMARY | 2023-09-18 20:20 | XMS_ITS | Encounter Summary ---
Author Name Unknown Organization [place] Address [address] [place] [address] Care Team Providers Care Mattress Stuffer Name Role Phone Ailin Zavala MD Unavailable [phone] Ailin Zavala MD Primary Care Provider Martina Strickland PA-C Primary Care Provider Amadeo King MD Unavailable + [phone] Claudia Marcus MD Unavailable [phone] Amadeo King MD Unavailable + [phone] Joseph Trivedi MD Unavailable [phone] Claudia Marcus MD Unavailable [phone] Emma Deshpande MD Unavailable +[phone] Kishan Spain [...] (Late st Contact Info) Description 04/25/2019 Telephone [facility] Eye [facility] 516 [facility] 9 La Clin 9A [place] [phone] Candy Jett, DO 909 [place], [place] [phone] Prior Auth - Medication (CYCLOSPORINE 1% in [...] managed by the clinic staff and provider. GROUND ATTENDANT * Telephone Encounter - Amarilys Roberts - 05/18/2019 1:36 PM CST Insurance called for additional information. Answered and should receive an outcome by 05/19/18. Case# [id number] GROUND ATTENDANT * Telephone Encounter - Amarilys Roberts - 05/16/2019 1:19 PM CST Images from the original note were not included. Received addition form to fill out. Completed and faxed back with all original requests. GROUND ATTENDANT * Telephone Encounter - Amarilys Roberts - [...] suggest to re-fax to a different # [phone] (Benefit Coverage Review). According to the rep, the case has not been touched since the denial 05/08/19. Case # [id number].Re- faxed appeal again marked urgent. GROUND ATTENDANT * Telephone Encounter - Amarilys Roberts - 05/12/2019 12:22 PM CST Medication Appeal Initiation We have initiated an appeal for the requested medication: Medication: CYCLOSPORINE 1% in artificial tears- APPEAL Pending Appeal Start Date: 05/12/2019 Insurance Company: [employer] - Comments: Appeal letter faxed to [employer] [phone]. . GROUND ATTENDANT * Telephone Encounter - Amarilys Roberts - 05/08/2019 12:43 PM CST Images from the original note were not included. PRIOR AUTHORIZATION DENIED Medication: CYCLOSPORINE 1% in artificial tears- DENIED Denial Date: 05/08/2019 Denial Rational: Appeal Information: GROUND ATTENDANT * Telephone Encounter - Amarilys Roberts - 05/04/2019 11:24 AM CST Images from the original note were not included. Received message from insurance to have pharmacy run the main ingredient. Per pharmacy, previous NDC has been discontinued, therefore new NDC is requested to be covered. New NDC [id number]. Old NDC [id number]. Called insurance to have new NDC put on formulary. Refaxed request back stating this. Rep was just going to fax over a new PA form, but we had already fax one in, just refaxing with new information. GROUND ATTENDANT * Telephone Encounter - Vesna Baca - 05/04/2019 10:59 AM CST Rec'd a call from Armando @ [facility] pharmacy inquiring on status of P/A. Advised of the below. GROUND ATTENDANT * Telephone Encounter - Amarilys Roberts - 05/02/2019 11:28 AM CST Manually faxed PA request to [employer]. GROUND ATTENDANT * Telephone Encounter - Amarilys Roberts - 04/25/2019 3:41 PM CST Images from the original note were not included. Central Prior Authorization Team PA Initiation Medication: CYCLOSPORINE 1% in artificial tears Insurance Company: [employer] - Pharmacy Filling the Rx: [id number] - [place], [place] - [address] [facility] [address] Filling Pharmacy Filling Pharmacy Fax: Start Date: 04/25/2019 GROUND ATTENDANT * Telephone Encounter - Martina Marcano - 04/25/2019 2:56 PM CST Images from the original note were not included. Medication is documented in the After Visit Summary under the media tab. GROUND ATTENDANT documented in this encounter Plan of Treatment Upcoming Encounters Date Type Department Care Team (Late st Contact Info) Description 09/20/2023 2:45 PM CDT Office Visit [facility] [place] [phone] [facility] 9[facility] Clin 9A [place] [address] Amadeo King MD 420 [facility] 493 [place], [place] [address]885 12/07/2023 3:10 PM CDT Office Visit [facility] - [address] 9[facility] Clin 9A [place] [phone] Emma Deshpande MD 6 [facility] 911 [place], [place] 899235 documented as of this encounter Visit Diagnoses Not on filedocumented in this encounter Care Teams Mattress Stuffer Relationship Specialty Start Date End Date Ailin Zavala MD PCP - General Internal Medicine 07/28/11 07/18/19 Martina Strickland PA-C PCP - General Physician Respiratory Medicine Physician 07/19/19 Ailin Zavala MD MD Internal Medicine 07/28/11 Amadeo King MD 420 [facility] 493 [place] [address] Ophthalmology 12/22/19 Claudia Marcus MD [facility] EYE [facility] [address] [place] [phone] Assigned Surgical Provider 03/01/20 05/25/20 Amadeo King MD [address] [place] [address] 493 [place], [place] [phone] Assigned PCP 04/07/20 06/02/23 Joseph Trivedi MD [facility] [address] [facility] 215 [place] [address] Rheumatology 05/21/20 Claudia Marcus MD [facility] EYE [facility] [address] [place] [address] Assigned Surgical Provider 06/30/20 10/19/20 Emma Deshpande MD [address] [place] [address] 911 [place], [place] [phone] Assigned Surgical Provider 05/26/20 06/29/20 Kishan Spain, OD [address] [place] [phone] Assigned Surgical Provider 10/20/20 11/23/20 Emma Deshpande MD [address] [place] [address] 911 [place], [place] [phone] Assigned Surgical Provider 11/24/20 12/07/20 Kishan Spain, OD [address] [place] [phone] Assigned Surgical Provider 12/08/20 03/27/22 Emma Deshpande MD [address] [place] [address] 911 [place] [address] Assigned Surgical Provider 03/28/22 04/03/22 Rene Grant MD [address] [place] [address]385 Assigned Surgical Provider 04/04/22 08/21/22 Amadeo Winston MD [address] [place] [address] Assigned Surgical Provider 08/22/22 08/28/22 Amadeo Winston MD [address] [place] [address] Assigned Surgical Provider 09/05/22 09/11/22 Rene Grant MD [address] [place] [address] Assigned Surgical Provider 08/29/22 09/04/22 Rene Grant MD [address] [place] [address] 98148 Assigned Surgical Provider 09/12/22 documented as of this encounter
--- OUTSIDE RECORDS SUMMARY | 2023-09-18 20:20 | XMS_ITS | Encounter Summary ---
Author Name Unknown Organization [place] Address [address] [place] [address] Care Team Providers Care Picker Name Role Phone Ailin Zavala MD Unavailable [phone] Martina Strickland PA-C Primary Care Provider Amadeo King MD Unavailable + [phone] Claudia Marcus MD Unavailable [phone] Amadeo King MD Unavailable + 5-0 Joseph Trivedi MD Unavailable [phone] Claudia Marcus MD Unavailable [phone] Emma Dsehpande MD Unavailable + [phone] Kishan Spain OD [...] Contact Info) Description 03/27/2020 My[facility] Medical Advice [address] [address] Jessica Chisholm, RN Social History Tobacco Use [...] COVID-19? No / Unsure 03/13/2020 2:59 PM NUCLEAR PLANT INSTRUMENT TECHNICIAN documented as of this encounter Plan of Treatment Upcoming Encounters Date Type Department Care Team (Late st Contact Info) Description 09/20/2023 2:45 PM CDT Office Visit [facility] 516 [facility] 9th Wa Clin 9A [place] [address] Amadeo King MD 420 [facility] 493 [place], [place] 8[address]85 12/07/2023 3:10 PM CDT Office Visit [facility] Eye [facility] - [facility] 516 [facility] 9th Wa Clin 9A [place] [address] Emma Deshpande MD 516 [facility] [address] 911 [place], [place] 425425 documented as of this encounter Visit Diagnoses Not on filedocumented in this encounter Care Teams Picker Relationship Specialty Start Date End Date Martina Strickland PA-C PCP - General Physician Labor And Employment Paralegal 07/19/19 Ailin Zavala MD Internal Medicine 07/28/11 Amadeo King MD [address] [address] Ophthalmology 12/22/19 Claudia Marcus MD [facility] EYE [facility] [address] [place] [phone] Assigned Surgical Provider 03/01/20 05/25/20 Amadeo King MD [address] [place] [address] 329695 Assigned PCP 04/07/20 06/02/23 Joseph Trivedi MD [facility] [address] [facility] 215 [place], [place] 69[address] Rheumatology 05/21/20 Claudia Marcus MD [facility] EYE [facility] [address] [place] [phone] Assigned Surgical Provider 06/30/20 10/19/20 Emma Deshpande MD 6 [facility] 911 [place], [place] 161825 Assigned Surgical Provider 05/26/20 06/29/20 Kishan Spain OD [address] [place] [address] 4th [place] [phone] Assigned Surgical Provider 10/20/20 11/23/20 Emma Deshpande MD [address] [place] [address] 28013 Assigned Surgical Provider 11/24/20 12/07/20 Kishan Spain, [address] [place] [address] 4th [place] [phone] Assigned Surgical Provider 12/08/20 03/27/22 Emma Deshpande MD [address] [place] [address] Assigned Surgical Provider 03/28/22 04/03/22 Rene Grant MD [address] [place] [address] Assigned Surgical Provider 04/04/22 08/21/22 Amadeo Winston MD [address] [place] [address] Assigned Surgical Provider 08/22/22 08/28/22 Amadeo Winston MD [address] [place] [address]44 Assigned Surgical Provider 09/05/22 09/11/22 Rene Grant MD [address] [place] [address]22 Assigned Surgical Provider 08/29/22 09/04/22 Rene Grant MD 6 [place] [address] Assigned Surgical Provider 09/12/22 documented as of this encounter
--- OUTSIDE RECORDS SUMMARY | 2023-09-18 20:20 | XMS_ITS | Encounter Summary ---
Author Name Unknown Organization [place] Address [address] [place] [address] Care Team Providers Care Fur Remodeler Name Role Phone Ailin Zavala MD Unavailable [phone] Martina Strickland PA-C Primary Care Provider Amadeo King MD Unavailable [phone] Joseph Trivedi MD Unavailable [phone] Rene Grant MD Unavailable [phone] Encounter Details Date Type Department Care Team [...] Office Visit [facility] Eye [address] 9 [address] Clin 9A [place] [phone] Amadeo King MD 420 [facility] 493 [place], [place] 0[address]15 12/07/2023 3:10 PM CDT Office Visit [facility] Eye [facility] 516 [facility] 9th Fl Clin 9A [place] [address] Emma Deshpande MD 516 [facility] [address] 911 [place] [address] documented as of this encounter Visit Diagnoses Not on filedocumented in this encounter Care Teams Fur Remodeler Relationship Specialty Start Date End Date Martina Strickland PA-C PCP - General Physician Senior Construction Estimator 07/19/19 Ailin Zavala MD Internal Medicine 07/28/11 Amadeo King MD [address] [place] [address] [phone] Ophthalmology 12/22/19 Joseph Trivedi MD [facility] [address] [facility] 215 [place], [place] 97[address] Rheumatology 05/21/20 Rene Grant MD [address] [place] [address] 528385 Assigned Surgical Provider 09/12/22 documented as of this encounter
--- OUTSIDE RECORDS SUMMARY | 2023-09-18 20:20 | XMS_ITS | Encounter Summary ---
Author Name Unknown Organization [place] Address [address] [place] [address] Care Team Providers Care Petroleum Terminal Plant Operator Name Role Phone Ailin Zavala MD Unavailable [phone] Martina Strickland PA-C Primary Care Provider Amadeo King MD Unavailable [phone] Joseph Trivedi MD Unavailable [phone] Rene Grant MD Unavailable [phone] Encounter Details Date Type Department Care Team [...] Visit [facility] Eye [address] 9 [address] Clin 9A [place] [phone] Amadeo King MD 420 [facility] 493 [place], [place] [address] 12/07/2023 3:10 PM CDT Office Visit [facility] Eye [facility] 516 [facility] 9th Fl Clin 9A [place] [address] Emma Deshpande MD 516 [facility] [address] 911 [place] [address] documented as of this encounter Visit Diagnoses Not on filedocumented in this encounter Care Teams Petroleum Terminal Plant Operator Relationship Specialty Start Date End Date Martina Strickland PA-C PCP - General Physician Vertica Architect 07/19/19 Ailin Zavala MD Internal Medicine 07/28/11 Amadeo King MD [address] [place] [address] 710265 Ophthalmology 12/22/19 Joseph Trivedi MD [facility] [address] [facility] 215 [place], [place] 447665 Rheumatology 05/21/20 Rene Grant MD [address] [place] [address] [phone] Assigned Surgical Provider 09/12/22 documented as of this encounter
--- OUTSIDE RECORDS SUMMARY | 2023-09-18 20:20 | XMS_ITS | Encounter Summary ---
Author Name Unknown Organization [place] Address [address] [place] [address] Care Team Providers Care Development Analyst Name Role Phone Ailin Zavala MD Unavailable [phone] Martina Strickland PA-C Primary Care Provider Amadeo King MD Unavailable [phone] Joseph Trivedi MD Unavailable [phone] Rene Grant MD Unavailable [phone] Encounter Details Date Type Department Care Team [...] Description 09/20/2023 2:45 PM CDT Office Visit [facility] Eye [address] 9 Nh Clin 9A [place] [phone] Amadeo King MD 420 [facility] 493 [place], [place] [address] 12/07/2023 3:10 PM CDT Office Visit [facility] Eye [facility] 516 [facility] 9th Fl Clin 9A [place] [address] Emma Deshpande MD 516 [facility] [address] 911 [place] [address] documented as of this encounter Visit Diagnoses Not on filedocumented in this encounter Care Teams Development Analyst Relationship Specialty Start Date End Date Martina Strickland PA-C PCP - General Physician Esthetician/Spa Coordinator 07/19/19 Ailin Zavala MD Internal Medicine 07/28/11 Amadeo King MD [address] [place] [address] 727885 Ophthalmology 12/22/19 Joseph Trivedi MD [facility] [address] [facility] 215 [place], [place] 330755 Rheumatology 05/21/20 Rene Grant MD [address] [place] [address] 129755 Assigned Surgical Provider 09/12/22 documented as of this encounter
--- OUTSIDE RECORDS SUMMARY | 2023-09-18 20:20 | XMS_ITS | Encounter Summary ---
Author Name Unknown Organization [facility] Address [address] [place] [address] Care Team Providers Care Hand Bootmaker Name Role Phone Ailin Zavala MD Unavailable [phone] Martina Strickland PA-C Primary Care Provider Amadeo King MD Unavailable [phone] Joseph Trivedi MD Unavailable [phone] Rene Grant MD Unavailable [phone] Reason for Visit * Reason Comments Follow Up Corneal ulcer of rig ht eye Encounter Details Date Type Department Care Team (Late st Contact Info) Description 07/09/2023 3:00 PM MANAGER IMPLEMENTATION Office Visit [facility] Eye [address] 9[facility] Clin 9A [place] [address] Rene Grant MD [address] [place] [place] [address] Corneal ulcer of right eye (Primary Dx); [...] 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 Llamas h/o Aqueous Misdirection s/p [...] S/p Yag Cap 05/2020 Follow up: Wednesday [place] FERMENTER [place] Cydney Madrid MD Cornea and External Disease Fellow [facility] GER IMPLEMENTATION documented in this encounter Nursing Notes * [...] Glenny Pack 3:02 PM July 09, 2023 GER IMPLEMENTATION documented in this encounter Plan of Treatment Upcoming Encounters Date Type Department Care Team (Late st Contact Info) Description 09/20/2023 2:45 PM CDT Office Visit [place] 429236 [facility] 9th Ne Clin 9A [place] [phone] Amadeo King MD [address] [place] [address] 12/07/2023 3:10 PM CDT Office Visit [facility] - [address] 9th Ne Clin 9A [place] [address] Emma Deshpande MD [address] [facility] [address] 911 [place], [place] [address] Pending Results Name Type Priority Associated Diagnoses Date /Time Slit Lamp Photos OD (right eye) Opht Imaging Routine Corneal ulcer of right eye 07/09/2023 3:50 PM MANAGER IMPLEMENTATION documented as of this encounter Visit Diagnoses Diagnosis Corneal ulcer of right eye- Primary Corneal ulcer, unspecified 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
--- OUTSIDE RECORDS SUMMARY | 2023-09-18 20:20 | XMS_ITS | Encounter Summary ---
Author Name Unknown Organization [place] Address [address] [place] [address] Care Team Providers Care Wire Wrapping Machine Operator Name Role Phone Ailin Zavala MD Unavailable Martina Strickland PA-C Primary Care Provider Amadeo King MD Unavailable [phone] Joseph Trivedi MD Unavailable [phone] Rene Grant MD Unavailable [phone] Reason for Visit * Reason Comments Follow Up White spot right eye Encounter Details Date Type Department Care Team (Late st Contact Info) Description 06/30/2023 9:30 AM NETWORK SECURITY CONSULTANT Office Visit [facility] Eye [place] 995806 [facility] 9[facility] Clin 9A [place] [address] Amadeo Winston MD 420 [place], [place] 46[address] Rene Grant MD 6 [place], [place] 24[address] Central corneal ulcer of right eye (Primary [...] 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 - Rene Grant M.D ORK SECURITY CONSULTANT documented in this encounter Nursing Notes * [...] Glenny Pack 9:53 AM June 30, 2023 ORK SECURITY CONSULTANT documented in this encounter Plan of Treatment Upcoming Encounters Date Type Department Care Team (Late st Contact Info) Description 09/20/2023 2:45 PM CDT Office Visit [address] Mi Clin 9A [place] [address] Amadeo King MD 420 [facility] MMC 493 [place], [place] [address] 12/07/2023 3:10 PM CDT Office Visit [facility] Eye [facility] 516 [facility] 9th Fl Clin 9A [place] [phone] Emma Deshpande MD 516 [facility] [address] 911 [place] [address] documented as of this encounter Procedures Procedure Name Priority Date/Time Associated Diagnosis Comments CORNEAL CULTURE OD (RIGHT EYE) Routine 06/30/2023 11:22 AM NETWORK SECURITY CONSULTANT Central corneal ulcer of right eye SLIT LAMP PHOTOS OD (RIGHT EYE) Routine 06/30/2023 11:22 AM NETWORK SECURITY CONSULTANT Central corneal ulcer of right eye AEROBIC BACTERIAL CULTURE ROUTINE Routine 06/30/2023 11:00 AM NETWORK SECURITY CONSULTANT Central corneal ulcer of right eye FUNGAL OR YEAST CULTURE ROUTINE Routine 06/30/2023 11:00 AM NETWORK SECURITY CONSULTANT Central corneal ulcer of right eye AMOEBA CULTURE Routine 06/30/2023 11:00 AM NETWORK SECURITY CONSULTANT Central corneal ulcer of right eye TAYLOR PREP Routine 06/30/2023 11:00 AM NETWORK SECURITY CONSULTANT Central corneal ulcer of right eye GRAM STAIN Routine 06/30/2023 11:00 AM NETWORK SECURITY CONSULTANT Central corneal ulcer of right eye ANAEROBIC BACTERIAL CULTURE ROUTINE Routine 06/30/2023 11:00 AM NETWORK SECURITY CONSULTANT Central corneal ulcer of right eye documented in this encounter Results * Corneal Culture OD (right eye) (06/30/2023 11:22 AM NETWORK SECURITY CONSULTANT) Rene Saravia MD - 06/30/2023 11:22 AM NETWORK SECURITY CONSULTANT Sign in/Time Out: Sign in communication [...] Photos OD (right eye) (06/30/2023 11:22 AM NETWORK SECURITY CONSULTANT) Rene Saravia MD - 06/30/2023 11:22 AM NETWORK SECURITY CONSULTANT Performed by: EG . Patient cooperation: Reliable . Reliability of the test: Good . Test Findings: Abnormal . Plan: Monitor . Interval: Initial . Notes Corneal ulcer Rene Grant MD OPHTHALMOLOGY * (ABNORMAL) Gram stain (06/30/2023 11:00 AM NETWORK SECURITY CONSULTANT) Gram Stain Result 4+ Gram positive cocci(A) 06/30/2023 2:09 PM NETWORK SECURITY CONSULTANT [facility] Gram Stain Result 4+ Gram negative bacilli(A) 06/30/2023 2:09 PM NETWORK SECURITY CONSULTANT [facility] Gram Stain Result 2+ Gram positive bacilli(A) 06/30/2023 2:09 PM NETWORK SECURITY CONSULTANT [facility] Gram Stain Result 4+ WBC seen(A) 06/30/2023 2:09 PM NETWORK SECURITY CONSULTANT [facility] Comment:Predominantly PMNs Tissue STRUCTURE OF CORNEA OF RIGHT EYE / Unknown Non-blood Collection / Unknown 06/30/2023 11:00 AM NETWORK SECURITY CONSULTANT 06/30/2023 12:42 PM NETWORK SECURITY CONSULTANT Narrative [facility] - 06/30/2023 2:09 PM NETWORK SECURITY CONSULTANT Rene Grant MD LAB - MICRO GENERAL ORDERABLES [facility] Inf. Diseases Diag. Lab [address] [facility], [address] [place] [address], [facility] [phone] * Parasite Culture (06/30/2023 11:00 AM NETWORK SECURITY CONSULTANT) Culture Negative for Amoebae after 10 days of incubation BHAVIN 07/10/2023 7:26 AM NETWORK SECURITY CONSULTANT [facility] Direct Stain Negative for Amoebae 07/10/2023 7:26 AM NETWORK SECURITY CONSULTANT [facility] Comment:Results reviewed by Fabricio Monterroso, Ph.D., Strand Buncher Fine Wire Industrial Retrofit Designer. 06/30/23 Tissue STRUCTURE OF CORNEA OF RIGHT EYE / Unknown Non-blood Collection / Unknown 06/30/2023 11:00 AM NETWORK SECURITY CONSULTANT 06/30/2023 12:42 PM NETWORK SECURITY CONSULTANT Rene Grant MD LAB - MICRO GENERAL ORDERABLES [facility] Inf. Diseases Diag. Lab [address] [facility], [address] [address] [phone] * Fungus Culture, non-blood (06/30/2023 11:00 AM NETWORK SECURITY CONSULTANT) Culture No Growth BHAVIN 07/28/2023 8:33 AM CDT [facility] Tissue STRUCTURE OF CORNEA OF RIGHT EYE / Unknown Non-blood Collection / Unknown 06/30/2023 11:00 AM NETWORK SECURITY CONSULTANT 06/30/2023 12:41 PM NETWORK SECURITY CONSULTANT Rene Grant MD LAB - MICRO GENERAL ORDERABLES [facility] Inf. Diseases Diag. Lab [address] [facility], [address] [phone] * Anaerobic bacterial culture (06/30/2023 11:00 AM NETWORK SECURITY CONSULTANT) Culture No anaerobic organisms isolated BHAVIN 07/07/2023 10:49 AM NETWORK SECURITY CONSULTANT [facility] Tissue STRUCTURE OF CORNEA OF RIGHT EYE / Unknown Non-blood Collection / Unknown 06/30/2023 11:00 AM NETWORK SECURITY CONSULTANT 06/30/2023 12:42 PM NETWORK SECURITY CONSULTANT Rene Grant MD LAB - MICRO GENERAL ORDERABLES [facility] Inf. Diseases Diag. Lab [address] [facility], [address] [address], [facility] [phone] * Taylor prep (06/30/2023 11:00 AM NETWORK SECURITY CONSULTANT) TAYLOR Preparation No fungal elements seen 06/30/2023 2:04 PM NETWORK SECURITY CONSULTANT [facility] TAYLOR Preparation Reference Range: No fungal elements seen. 06/30/2023 2:04 PM NETWORK SECURITY CONSULTANT [facility] Tissue STRUCTURE OF CORNEA OF RIGHT EYE / Unknown Non-blood Collection / Unknown 06/30/2023 11:00 AM NETWORK SECURITY CONSULTANT 06/30/2023 12:41 PM NETWORK SECURITY CONSULTANT Rene Grant MD LAB - MICRO GENERAL ORDERABLES Performing Organization Address [facility] [[email or web address]] Co de Phone Number [facility] Inf. Diseases Diag. Lab [address] [facility], [address] [address], [facility] [phone] * (ABNORMAL) Tissue Aerobic Bacterial Culture Routine Without Gram Stain (06/30/2023 11:00 AM NETWORK SECURITY CONSULTANT) Culture 15-50 CFU Granulicatella adiacens(A) BHAVIN 07/04/2023 10:10 AM NETWORK SECURITY CONSULTANT [facility] Tissue STRUCTURE OF CORNEA OF RIGHT EYE / Unknown Non-blood Collection / Unknown 06/30/2023 11:00 AM NETWORK SECURITY CONSULTANT 06/30/2023 12:41 PM NETWORK SECURITY CONSULTANT Narrative Organism Antibiotic Method Susceptibility Granulicatella [...] - MICRO GENERAL ORDERABLES [facility] Inf. Diseases Diag. Lab [address] 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
--- OUTSIDE RECORDS SUMMARY | 2023-09-18 20:20 | XMS_ITS | Encounter Summary ---
Author Name Unknown Organization [place] Address [address] [place] [address] Care Team Providers Care Golf Club Repairer Name Role Phone Ailin Zavala MD Unavailable [phone] Martina Strickland PA-C Primary Care Provider Amadeo King MD Unavailable [phone] Claudia Marcus MD Unavailable [phone] Amadeo King MD Unavailable [phone] Joseph Trivedi MD Unavailable [phone] Claudia Marcus MD Unavailable [phone] [...] (Late st Contact Info) Description 10/09/2019 Telephone [facility] Ophthalmology [address] [facility] [address] 4th [place] [address] Amadeo King MD 420 [facility] 493 [place], [place] [address] Call Back (Appt tm at 11:30 ) [...] Santino Leon - 10/09/2019 2:21 PM CDT [facility] Call Center Phone Message May [...] Description 09/20/2023 2:45 PM CDT Office Visit [facility] Eye [facility] 516 [facility] 9th Mi Clin 9A [place] [phone] Amadeo King MD 420 [facility] 493 [place], [place] [address] 12/07/2023 3:10 PM CDT Office Visit [facility] 516 [facility] 9th Mi Clin 9A [place] [phone] Emma Deshpande MD 516 [facility] 911 [place], [place] [address] documented as of this encounter Visit Diagnoses Not on filedocumented in this encounter Care Teams Golf Club Repairer Relationship Specialty Start Date End Date Martina Strickland PA-C PCP - General Physician Bench Worker Apprentice 07/19/19 Ailin Zavala MD Internal Medicine 07/28/11 Amadeo King MD [address] [place] [address] 493 [place], [place] [address] Ophthalmology 12/22/19 Claudia Marcus MD [facility] EYE [facility] 6533 [place] [address] Assigned Surgical Provider 03/01/20 05/25/20 Amadeo King MD [address] [place] [address] 493 [place], [place] [address] Assigned PCP 04/07/20 06/02/23 Joseph Trivedi MD [facility] [address] [facility] 215 [place] [address] Rheumatology 05/21/20 Claudia Marcus MD [facility] EYE [facility] [address] [place] [phone] Assigned Surgical Provider 06/30/20 10/19/20 Emma Deshpande MD [address] [place] [address]69055 Assigned Surgical Provider 05/26/20 06/29/20 Kishan Spain, OD 909 [facility] 4th [place] [address] Assigned Surgical Provider 10/20/20 11/23/20 Emma Deshpande MD [address] [place] [id number] Assigned Surgical Provider 11/24/20 12/07/20 Kishan Spain, OD 909 [facility] 4th [place] [address] Assigned Surgical Provider 12/08/20 03/27/22 Emma Deshpande MD [address] [place] [address]805 Assigned Surgical Provider 03/28/22 04/03/22 Rene Grant MD [address] [place] [address] Assigned Surgical Provider 04/04/22 08/21/22 Amadeo Winston MD [address] [place] [address] Assigned Surgical Provider 08/22/22 08/28/22 Amadeo Winston MD [address] [place] [address] Assigned Surgical Provider 09/05/22 09/11/22 Rene Grant MD [address] [place] [address] Assigned Surgical Provider 08/29/22 09/04/22 Rene Grant MD [address] [place] [address] Assigned Surgical Provider 09/12/22 documented as of this encounter
--- OUTSIDE RECORDS SUMMARY | 2023-09-18 20:20 | XMS_ITS | Encounter Summary ---
Author Name Unknown Organization [facility] Address [address] [place] [address] Care Team Providers Care Electrical Continuity Tester Name Role Phone Ailin Zavala MD Unavailable [phone] Martina Strickland PA-C Primary Care Provider Amadeo King MD Unavailable [phone] Amadeo King MD Unavailable [phone] Joseph Trivedi MD Unavailable Rene Grant MD Unavailable Amadeo Winston MD Unavailable Amadeo Winston MD Unavailable Rene Grant MD Unavailable Rene Grant MD Unavailable [phone] Reason for Visit * Reason Onset Date Comments Refill Request 06/22/2022 prednisoLONE dick benitez (PRED FORTE) 1 % ophthalmic suspension Encounter Details Date Type Department Care Team (Late st Contact Info) Description 06/22/2022 [facility] [address] 9 Ks Clin 9A [place] [phone] Rene Grant MD [address] [place] [address] Refill Request (prednisoLONE acetate (PRED FORTE) [...] Coronavirus/COVID-19? No / Unsure 06/03/2022 2:32 PM CONTRACT RECRUITER documented as of this encounter Miscellaneous Notes [...] to arrive. requests 10 ml 0 rfs. RACT RECRUITER * Telephone Encounter - Ashley Paula - 06/22/2022 1:03 PM CST [facility] Call Center Phone Message May a detailed message be left on voicemail: yes Reason for Call: Medication Refill Request Has the patient contacted the pharmacy for the refill? Yes Name of medication being requested: prednisoLONE acetate (PRED FORTE) 1 % ophthalmic suspension Provider who prescribed the medication: Dr. Grant Pharmacy: [facility] Date medication is needed: JOSE MANUEL Patient called stating she will not have this medication until the from her mail order pharmacy and she is out. She is asking for an emergency refill. Action Taken: Other: eye Travel Screening: Not Applicable RACT RECRUITER documented in this encounter Plan of Treatment Upcoming Encounters Date Type Department Care Team (Late st Contact Info) Description 09/20/2023 2:45 PM CDT Office Visit [facility] [address] 9th Ks Clin 9A [place] [address] Amadeo King MD [address] [facility] 493 [place] [address] 12/07/2023 3:10 PM CDT Office Visit [facility] [address] 9th Ks Clin 9A [place] [phone] Emma Deshpande MD 516 [facility] [address] 911 [place], [place] [address] documented as of this encounter Visit Diagnoses Diagnosis 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 documented in this encounter Care Teams Electrical Continuity Tester Relationship Specialty Start Date End Date Martina Strickland PA-C PCP - General Physician Dance Coach 07/19/19 Ailin Zavala MD Internal Medicine 07/28/11 Amadeo King MD [address] [place] [address] 493 [place], [place] [address] Ophthalmology 12/22/19 Amadeo King MD [address] [facility] 493 [place] [address] Assigned PCP 04/07/20 06/02/23 Joseph Trivedi MD [facility] [address] [phone] Rheumatology 05/21/20 Rene Grant MD [address] [place] [address] Assigned Surgical Provider 04/04/22 08/21/22 Amadeo Winston MD [address] [place] [address] 780345 Assigned Surgical Provider 08/22/22 08/28/22 Amadeo Winston MD [address] [place] [address] Assigned Surgical Provider 09/05/22 09/11/22 Rene Grant MD [address] [place] [address] [phone] Assigned Surgical Provider 08/29/22 09/04/22 Rene Grant MD [address] [place] [address] Assigned Surgical Provider 09/12/22 documented as of this encounter
--- OUTSIDE RECORDS SUMMARY | 2023-09-18 20:20 | XMS_ITS | Encounter Summary ---
Author Name Unknown Organization [facility] Address [address] [place] [address] Care Team Providers Care Social Sciences Instructor Name Role Phone Ailin Zavala MD Unavailable [phone] Martina Strickland PA-C Primary Care Provider Amadeo King MD Unavailable [phone] Amadeo King MD Unavailable [phone] Joseph Trivedi MD Unavailable [phone] Claudia Marcus MD Unavailable [phone] Kishan Spain OD Unavailable Emma Deshpande MD [...] (Late st Contact Info) Description 08/28/2020 Refill [facility] Eye [facility] 516 [facility] 9th Fl Clin 9A [place] [address] Amadeo King MD 420 [facility] 493 [place], [place] [address] Refill Request (mycophenolate (GENERIC EQUIVALENT) 250 MG [...] Stacey Ventura - 08/28/2020 12:[address] [facility] Call Center Phone Message May a detailed message be left on voicemail: yes Reason for Call: Medication Refill Request Has the patient contacted the pharmacy for the refill? Yes Name of medication being requested: mycophenolate (GENERIC EQUIVALENT) 250 MG capsule and mycophenalate 500 mg Provider who prescribed the medication: Dr. King Pharmacy: [id number] [place], [place] - [address] AT [facility] [address] Date medication is needed: now-pt has 1 left. Spouse didn't tell her she was almost out. Thanks Action Taken: Message routed to: [facility] eye gen Travel Screening: Not Applicable documented in this encounter Plan of Treatment Upcoming Encounters Date Type Department Care Team (Late st Contact Info) Description 09/20/2023 2:45 PM CDT Office Visit [facility] [place] 858016 [facility] 9th [facility] 9A [place] [address] Amadeo King MD 420 [facility]MC 493 [place] [address] 12/07/2023 3:10 PM CDT Office Visit [facility] 516 [facility] 9th Nh Clin 9A [place] [address] Emma Deshpande MD 516 [facility] 911 [place], [place] [address] documented as of this encounter Visit Diagnoses Diagnosis 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 215 [place] [address] Rheumatology 05/21/20 Claudia Marcus MD [facility] 6533 [place] [phone] Assigned Surgical Provider 06/30/20 10/19/20 Kishan Spain, OD [address] [place] [address] 4th [place] [phone] Assigned Surgical Provider 10/20/20 11/23/20 Emma Deshpande MD 6 [facility] 911 [place], [place] [address] Assigned Surgical Provider 11/24/20 12/07/20 Kishan Spain, OD 909 [facility] 4th [place] [phone] Assigned Surgical Provider 12/08/20 03/27/22 Emma Deshpande MD 516 [facility] 911 [place], [place] [address] Assigned Surgical Provider 03/28/22 04/03/22 Rene Grant MD [address] [place] [address] [phone] Assigned Surgical Provider 04/04/22 08/21/22 Amadeo Winston MD 420 [place], [place] 8[address]45 Assigned Surgical Provider 08/22/22 08/28/22 Amadeo Winston MD 420 [place], [place] 9[address]85 Assigned Surgical Provider 09/05/22 09/11/22 Rene Grant MD [address] [place] [address]645 Assigned Surgical Provider 08/29/22 09/04/22 Rene Grant MD [address] [place] [address] 841845 Assigned Surgical Provider 09/12/22 documented as of this encounter
--- OUTSIDE RECORDS SUMMARY | 2023-09-18 20:20 | XMS_ITS | Encounter Summary ---
Author Name Unknown Organization [place] Address [address] [place] [address] Care Team Providers Care Caterpillar Operator Name Role Phone Ailin Zavala MD Unavailable [phone] Martina Strickland PA-C Primary Care Provider Amadeo King MD Unavailable [phone] Joseph Trivedi MD Unavailable [phone] Rene Grant MD Unavailable [phone] Reason for Visit * Reason Onset Date Comments Symptoms 06/29/2023 White spot on ri ght cornea Encounter Details Date Type Department Care Team (Late st Contact Info) Description 06/29/2023 Telephone [facility] Eye [address] 9[facility] Clin 9A [place] [phone] Rene Grant MD [address] [place] [address] Symptoms (White spot on right cornea) Social [...] Paula turner this appointment Sarai Ricks Communication Html Web Developer on 06/29/2023 at 10:13 AM ERCIAL CENTER MANAGER * Telephone Encounter - Jacquelyn Huitron - [...] Center (CSC): Ophthalmology Travel Screening: Not Applicable ERCIAL CENTER MANAGER documented in this encounter Plan of Treatment Upcoming Encounters Date Type Department Care Team (Late st Contact Info) Description 09/20/2023 2:45 PM CDT Office Visit [facility] Eye [facility] - [address] Clin 9A [place] [address] Amadeo King MD [address] [place] [address] 12/07/2023 3:10 PM CDT Office Visit [facility] - [address] Clin 9A [place] [address] Emma Deshpande MD 516 [facility] 911 [place], [place] 2074[address] documented as of this encounter Visit Diagnoses Not on filedocumented in this encounter Care Teams Caterpillar Operator Relationship Specialty Start Date End Date Martina Strickland PA-C PCP - General Physician Fulfillment Coordinator 07/19/19 Ailin Zavala MD Internal Medicine 07/28/11 Amadeo King MD [address] [place] [address] 493 [place], [place] 16[address] Ophthalmology 12/22/19 Joseph Trivedi MD [facility] [address] [facility] [address] [place], [place] [address] Rheumatology 05/21/20 Rene Grant MD [address] [place] [address] 724955 Assigned Surgical Provider 09/12/22 documented as of this encounter
--- OUTSIDE RECORDS SUMMARY | 2023-09-18 20:20 | XMS_ITS | Encounter Summary ---
Author Name Unknown Organization [place] Address [address] [place] [address]. [place] [address] Care Team Providers Care Advertising Writer Name Role Phone Ailin Zavala MD Unavailable [phone] Martina Strickland PA-C Primary Care Provider Amadeo King MD Unavailable [phone] Joseph Trivedi MD Unavailable [phone] Rene Grant MD Unavailable [phone] Reason for Visit * Reason Comments Corneal [...] st Contact Info) Description 07/05/2023 12:30 PM LADIES UNDERWEAR OPERATOR Office Visit [facility] - [address] 9 Nd Clin 9A [place] [address] Rene Grant MD [address] [place] [address] Corneal ulcer of right eye (Primary Dx); [...] ([facility]) DM s -- [facility] [...] Yag Cap 05/2020 Follow up: Wednesday [place] MI[employer]OS[employer] DEVELOPER Cydney [place] Resident Attending Physician Attestation: Complete [...] Rene Grant MD at 07/05/2023 2:09 PM LADIES UNDERWEAR OPERATOR documented in this encounter Nursing Notes [...] at bedtime JANET Aldridge 12:53 PM 07/05/2023 ES UNDERWEAR OPERATOR documented in this encounter Plan of Treatment Upcoming Encounters Date Type Department Care Team (Late st Contact Info) Description 09/20/2023 2:45 PM CDT Office Visit [facility] 516 [facility] 9th Nd Clin 9A [place] [phone] Amadeo King MD 420 [facility] 493 [place] [address] 12/07/2023 3:10 PM CDT Office Visit [facility] 516 [facility] 9th Fl Clin 9A [place] [phone] Emma Deshpande MD 516 [facility] EM[facility]GENC[facility] [place] 911 [place] [address] documented as of this encounter Procedures Procedure Name Priority Date/Time Associated Diagnosis Comments ULTRASOUND B-SCAN OD (RIGHT EYE) Routine 07/05/2023 2:05 PM LADIES UNDERWEAR OPERATOR Corneal ulcer of right eye SLIT LAMP PHOTOS OD (RIGHT EYE) Routine 07/05/2023 2:05 PM LADIES UNDERWEAR OPERATOR Corneal ulcer of right eye documented in this encounter Results * Ultrasound B-scan OD (right eye) (07/05/2023 2:05 PM LADIES UNDERWEAR OPERATOR) Rene Saravia MD - 07/05/2023 2:05 PM LADIES UNDERWEAR OPERATOR Patient cooperation: Reliable . Reliability of the test: Good . Test Findings: Normal . Interpretation: Normal . Interval: Same . Notes Vitreous floaters no endophthalmitis Rene Grant MD OPHTHALMOLOGY * Slit Lamp Photos OD (right eye) (07/05/2023 2:05 PM LADIES UNDERWEAR OPERATOR) Rene Saravia MD - 07/05/2023 2:05 PM LADIES UNDERWEAR OPERATOR Performed by: rp . Patient cooperation: [...] Eye documented in this encounter Care Teams Advertising Writer Relationship Specialty Start Date End Date Martina Strickland PA-C PCP - General Physician Chief Reservoir Engineering 07/19/19 Ailin Zavala MD Internal Medicine 07/28/11 Amadeo King MD [address] [address] Ophthalmology 12/22/19 Joseph Trivedi MD [facility] [address] [address] Rheumatology 05/21/20 Rene Grant MD 516 [place] [address] Assigned Surgical Provider 09/12/22 documented as of this encounter
--- OUTSIDE RECORDS SUMMARY | 2023-09-18 20:20 | XMS_ITS | Encounter Summary ---
Author Name Unknown Organization [place] Address [address] [place] [address] Care Team Providers Care Supervisor Mold Shop Name Role Phone Ailin Zavala MD Unavailable [phone] Ailin Zavala MD Primary Care Provider Martina [...] Team (Late Contact Info) Description 11/18/[address] 9[facility] 9A [place] [address] Hailee Stone MD Social History Tobacco Use [...] Description 09/20/2023 2:45 PM CDT Office Visit [address] 9[facility] 9[place] [address] Amadeo King MD [address] [place] [address] [facility] 493 [place] [address] 12/07/2023 3:10 PM CDT Office Visit [address] 9[facility] 9A [place] [address] Emma Deshpande MD 516 [facility] [place] 911 [place], [place] [address] documented as of this encounter Visit Diagnoses Not on filedocumented in this encounter Care Teams Supervisor Mold Shop Relationship Specialty Start Date End Date Ailin Zavala MD PCP - General Internal Medicine 07/28/11 07/18/19 Martina Strickland PA-C PCP - General Physician Shipping Room Supervisor 07/19/19 Ailin Zavala MD Internal Medicine 07/28/11 Amadeo King MD 420 [facility] 493 [place], [place] 5[address] Ophthalmology 12/22/19 Claudia Marcus MD [facility] [address] [place] [phone] Assigned Surgical Provider 03/01/20 05/25/20 Amadeo King MD 420 [facility] 493 [place], [place] 766505 Assigned PCP 04/07/20 06/02/23 Joseph Trivedi MD [facility] [address] [facility] [facility] 215 [place], [place] [address] Rheumatology 05/21/20 Claudia Marcus MD [facility] [address] [place] [address] Assigned Surgical Provider 06/30/20 10/19/20 Emma Deshpande MD 516 [facility] 911 [place], [place] [phone] Assigned Surgical Provider 05/26/20 06/29/20 Kishan Spain, OD [address] [place] [phone] Assigned Surgical Provider 10/20/20 11/23/20 Emma Deshpande MD [address] [place] [address] Assigned Surgical Provider 11/24/20 12/07/20 Kishan Spain, OD [address] [place] [phone] Assigned Surgical Provider 12/08/20 03/27/22 Emma Deshpande MD [address] [place] [address] Assigned Surgical Provider 03/28/22 04/03/22 Rene Grant MD [address] [place] [address] Assigned Surgical Provider 04/04/22 08/21/22 Amadeo Winston MD [address] [place] [address] Assigned Surgical Provider 08/22/22 08/28/22 Amadeo Winston MD [address] [place] [address] Assigned Surgical Provider 09/05/22 09/11/22 Rene Grant MD [address] [place] [address] Assigned Surgical Provider 08/29/22 09/04/22 Rene Grant MD [address] [place] [address] Assigned Surgical Provider 09/12/22 documented as of this encounter
--- OUTSIDE RECORDS SUMMARY | 2023-09-18 20:20 | XMS_ITS | Encounter Summary ---
Author Name Unknown Organization [place] Address [address] [place] [address]. [place] [address] Care Team Providers Care Rn Medical Surgical Name Role Phone Ailin Zavala MD Unavailable [phone] Martina Strickland PA-C Primary Care Provider Amadeo King MD Unavailable [phone] Amadeo King MD Unavailable [phone] Joseph Trivedi MD Unavailable [phone] Kishan Spain OD Unavailable [phone] Emma Deshpande MD Unavailable [phone] Rene Grant MD Unavailable Amadeo Winston MD Unavailable [phone] Amadeo Winston MD Unavailable [phone] Rene Grant MD Unavailable [phone] Rene Grant MD Unavailable [phone] Reason for Visit * Reason Comments Medication Refill PREDNISOLONE ACET O/ DILSHAD 1% Encounter Details Date Type Department Care Team (Late st Contact Info) Description 05/28/2021 Refill [facility] Eye [facility] - [address] 4th [place] [address] Silas Cody MD [facility]0 [place] [address] Medication Refill (PREDNISOLONE ACET O/DILSHAD [...] COVID-19? No / Unsure 05/29/2021 2:48 PM MANAGER ANDROID documented as of this encounter Miscellaneous Notes * Telephone Encounter - Serene Leo RN - 05/29/2021 6:25 AM CST PREDNISOLONE ACET O/DILSHAD 1% Last Written Prescription Date: 03/27/2021 Last Fill Quantity: 15, # refills: 0 Last Office Visit : 05/19/2021 Future Office visit: 05/29/2021 Gertrudis Pbaon, OD Optometry A/P 1.) s/p PKP right [...] Leo RN Central Triage Red Flags/Med Refills GER ANDROID documented in this encounter Plan of Treatment Upcoming Encounters Date Type Department Care Team (Late st Contact Info) Description 09/20/2023 2:45 PM CDT Office Visit [facility] 516 [facility] 9th Mi Clin 9A [place] [phone] Amadeo King MD 420 [facility] 493 [place] [address] 12/07/2023 3:10 PM CDT Office Visit [facility] [place] 570406 [facility] 9th [facility] 9A [place] [phone] Emma Deshpande MD 6 [facility] 911 [place], [place] [address] documented as of this encounter Visit Diagnoses 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 documented in this encounter Care Teams Rn Medical Surgical Relationship Specialty Start Date End Date Martina Strickland PA-C PCP - General Physician Veneer Drier 07/19/19 Ailin Zavala MD Internal Medicine 07/28/11 Amadeo King MD [address] [place] [address] [facility] 493 [place], [place] 68[address] Ophthalmology 12/22/19 Amadeo King MD [address] [facility] 493 [place] [address] Assigned PCP 04/07/20 06/02/23 Joseph Trivedi MD [facility] 7250 [facility] 215 [place], [place] [address] Rheumatology 05/21/20 Kishan Spain OD 909 [facility] 4th [place] [phone] Assigned Surgical Provider 12/08/20 03/27/22 Emma Deshpande MD [address] [place] [address] 911 [place], [place] 787945 Assigned Surgical Provider 03/28/22 04/03/22 Rene Grant MD [address] [place] [address] 600435 Assigned Surgical Provider 04/04/22 08/21/22 Amadeo Winston MD [address] [place] [address] 956465 Assigned Surgical Provider 08/22/22 08/28/22 Amadeo Winston MD [address] [place] [address] 310065 Assigned Surgical Provider 09/05/22 09/11/22 Rene Grant MD [address] [place] [address] 678405 Assigned Surgical Provider 08/29/22 09/04/22 Rene Grant MD [address] [place] [address] 477365 Assigned Surgical Provider 09/12/22 documented as of this encounter
--- OUTSIDE RECORDS SUMMARY | 2023-09-18 20:20 | XMS_ITS | Encounter Summary ---
Author Name Unknown Organization [place] Address [address] [place] [address] Care Team Providers Care Glass Driller Name Role Phone Ailin Zavala MD Unavailable [phone] Ailin Zavala MD Primary Care Provider Martina [...] (Late st Contact Info) Description 03/27/2019 Telephone [facility] [place] [phone] [facility] 9[facility] Clin 9A [place] [address] Amadeo King MD [address] [address] Call Back (recovery time for upcoming surgery) [...] Chayo Robbins - 03/27/2019 3:58 PM CST [facility] Phone Message May a detailed message be left on voicemail: yes Reason for Call: Other: Paula calling to find out what the recovery time is going to be after her surgery. She is needing this information for her work. Please call her back to discuss Action Taken: Message routed to: [facility] Eye RVISOR REACTOR FUELING documented in this encounter Plan of Treatment Upcoming Encounters Date Type Department Care Team (Late st Contact Info) Description 09/20/2023 2:45 PM CDT Office Visit [facility] - [address] 9[facility] Clin 9A [place] [address] Amadeo King MD 420 [facility] 493 [place] [address] 12/07/2023 3:10 PM CDT Office Visit [facility] - [facility] 516 [facility] 9th Fl Clin 9A [place] [address] Emma Deshpande MD 516 [facility] [address] 911 [place], [place] 4822[address] documented as of this encounter Visit Diagnoses Not on filedocumented in this encounter Care Teams Glass Driller Relationship Specialty Start Date End Date Ailin Zavala MD PCP - General Internal Medicine 07/28/11 07/18/19 Martina Strickland PA-C PCP - General Physician Seed Core Operator 07/19/19 Ailin Zavala MD Internal Medicine 07/28/11 Amadeo King MD [address] [place] [address] Ophthalmology 12/22/19 Claudia Marcus MD [facility] [address] [phone] Assigned Surgical Provider 03/01/20 05/25/20 Amadeo King MD [address] [place] [address] Assigned PCP 04/07/20 06/02/23 Joseph Trivedi MD [facility] [address] [facility] 215 [place], [place] [address] Rheumatology 05/21/20 Claudia Marcus MD [facility] [address] [place] [phone] Assigned Surgical Provider 06/30/20 10/19/20 Emma Deshpande MD [address] [place] [address] 114885 Assigned Surgical Provider 05/26/20 06/29/20 Kishan Spain, OD [address] [place] [phone] Assigned Surgical Provider 10/20/20 11/23/20 Emma Deshpande MD [address] [place] [address] 184285 Assigned Surgical Provider 11/24/20 12/07/20 Kishan Spain, OD [address] [place] [phone] Assigned Surgical Provider 12/08/20 03/27/22 Emma Deshpande MD [address] [place] [address] 109595 Assigned Surgical Provider 03/28/22 04/03/22 Rene Grant MD [address] [place] [address] Assigned Surgical Provider 04/04/22 08/21/22 Amadeo Winston MD [address] [place] [address] Assigned Surgical Provider 08/22/22 08/28/22 Amadeo Winston MD [address] [place] [address] Assigned Surgical Provider 09/05/22 09/11/22 Rene Grant MD [address] [place] [address] Assigned Surgical Provider 08/29/22 09/04/22 Rene Grant MD [address] [place] [address] Assigned Surgical Provider 09/12/22 documented as of this encounter
--- OUTSIDE RECORDS SUMMARY | 2023-09-18 20:21 | XMS_ITS | Encounter Summary ---
Author Name Unknown Organization [place] Address [address] [place] [address] Care Team Providers Care Procurement Director Name Role Phone Ailin Zavala MD Unavailable [phone] Ailin Zavala MD Primary Care Provider Martina [...] st Contact Info) Description 10/01/2018 Office Visit [address] 9[facility] 9A [place] [phone] Gonzalez Perry, OD [facility] 8450 [place] [address] Aqueous misdirection, right - Right Eye (Primary [...] Description 09/20/2023 2:45 PM CDT Office Visit [address] 9[facility] 9A [place] [phone] Amadeo King MD 420 [facility] 493 [place], [place] [address] 12/07/2023 3:10 PM CDT Office Visit [address] 9[facility] 9A [place] [phone] Emma Deshpande MD 516 [facility] 911 [place], [place] 226125 documented as of this encounter Visit Diagnoses Diagnosis Aqueous misdirection, 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 - Right Eye Other states following surgery of eye and adnexa 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 Unspecified glaucoma documented in this encounter Care Teams Procurement Director Relationship Specialty Start Date End Date Ailin Zavala MD PCP - General Internal Medicine 07/28/11 07/18/19 Martina Strickland PA-C PCP - General Physician Restaurant Kitchen Manager 07/19/19 Ailin Zavala MD Internal Medicine 07/28/11 Amadeo King MD [address] [place] [address] [phone] Ophthalmology 12/22/19 Claudia Marcus MD [facility] EYE [facility] [address] [phone] Assigned Surgical Provider 03/01/20 05/25/20 Amadeo King MD [address] [place] [address] [phone] Assigned PCP 04/07/20 06/02/23 Joseph Trivedi MD [facility] [address] [place] [address] [address] [place] [address] Rheumatology 05/21/20 Claudia Marcus MD [facility] EYE [facility] [address] [phone] Assigned Surgical Provider 06/30/20 10/19/20 Emma Deshpande MD [address] [place] [address] Assigned Surgical Provider 05/26/20 06/29/20 Kishan Spain, OD [address] [place] [address] [phone] Assigned Surgical Provider 10/20/20 11/23/20 Emma Deshpande MD [address] [place] [address] Assigned Surgical Provider 11/24/20 12/07/20 Kishan Spain, OD [address] [place] [phone] Assigned Surgical Provider 12/08/20 03/27/22 Emma Deshpande MD [address] [place] [address] [phone] Assigned Surgical Provider 03/28/22 04/03/22 Rene Grant MD [address] [place] [address] [phone] Assigned Surgical Provider 04/04/22 08/21/22 Amadeo Winston MD [address] [place] [address] Assigned Surgical Provider 08/22/22 08/28/22 Amadeo Winston MD [address] [place] [address] 880955 Assigned Surgical Provider 09/05/22 09/11/22 Rene Grant MD [address] [place] [address] 494285 Assigned Surgical Provider 08/29/22 09/04/22 Rene Grant MD [address] [place] [address] [phone] Assigned Surgical Provider 09/12/22 documented as of this encounter
--- OUTSIDE RECORDS SUMMARY | 2023-09-18 20:21 | XMS_ITS | Encounter Summary ---
Author Name Unknown Organization [place] Address [address] [place] [address] Care Team Providers Care Instructor Correspondence [employer] Name Role Phone Ailin Zavala MD Unavailable [phone] Ailin Zavala MD Primary Care Provider Martina [...] (Late st Contact Info) Description 09/12/2018 Telephone [facility] [place] 585776 [facility] 9[facility] 9A [place] [phone] None Referral Social History Tobacco Use Types [...] Demi Judge - 09/12/2018 8:20 AM CDT [facility] Center Phone Message May a detailed message be left on voicemail: yes Reason for Call: Other: Urgent referral to supervisory investigative specialist for Chronic Angle closure glaucoma from Dr. Lesa Llamas at [facility]. To be seen within the week and a corneal visitfor next week. Call to schedule, faxing notes Action Taken: Message routed to: [facility] documented in this encounter Plan of Treatment Upcoming Encounters Date Type Department Care Team (Late st Contact Info) Description 09/20/2023 2:45 PM CDT Office Visit [facility] [place] 585776 [facility] 9[facility] 9A [place] [phone] Amadeo King MD [address] [place] [address] 12/07/2023 3:10 PM CDT Office Visit [facility] [place] 585776 [facility] 9th Fl Clin 9A [place] [address] Emma Deshpande MD 516 [facility] 911 [place], [place] 7[address] documented as of this encounter Visit Diagnoses Not on filedocumented in this encounter Care Teams Instructor Correspondence School Relationship Specialty Start Date End Date Ailin Zavala MD PCP - General Internal Medicine 07/28/11 07/18/19 Martina Strickland PA-C PCP - General Physician Director Independent 07/19/19 Ailin Zavala MD Internal Medicine 07/28/11 Amadeo King MD 420 [facility] 493 [place], [place] [address] Ophthalmology 12/22/19 Claudia Marcus MD [facility] [address] [place] [address] Assigned Surgical Provider 03/01/20 05/25/20 Amadeo King MD 420 [facility] 493 [place], [place] [phone] Assigned PCP 04/07/20 06/02/23 Joseph Trivedi MD [facility] [address] [facility] 215 [place] [address] Rheumatology 05/21/20 Claudia Marcus MD [facility] [address] [place] [phone] Assigned Surgical Provider 06/30/20 10/19/20 Emma Deshpande MD [address] [place] [address] 305535 Assigned Surgical Provider 05/26/20 06/29/20 Kishan Spain, OD [address] [place] [phone] Assigned Surgical Provider 10/20/20 11/23/20 Emma Deshpande MD [address] [place] [address] Assigned Surgical Provider 11/24/20 12/07/20 Kishan Spain, OD [address] [place] [phone] Assigned Surgical Provider 12/08/20 03/27/22 Emma Deshpande MD [address] [place] [address] [phone] Assigned Surgical Provider 03/28/22 04/03/22 Rene Grant MD [address] [place] [address] Assigned Surgical Provider 04/04/22 08/21/22 Amadeo Winston MD [address] [place] [address]803 Assigned Surgical Provider 08/22/22 08/28/22 Amadeo Winston MD 420 [place] [address] Assigned Surgical Provider 09/05/22 09/11/22 Rene Grant MD [address] [place] [address] 278265 Assigned Surgical Provider 08/29/22 09/04/22 Rene Grant MD [address] [place] [address] [phone] Assigned Surgical Provider 09/12/22 documented as of this encounter
== END 2023-09-18 20:23 | disposition home or self-care (01) ==
LOC: ED 20:16
PROVIDERS: Emergency Provider Emergency Medicine Emergency Medical Services; PCP Physician Assistant Medical
DX: M54.9 Dorsalgia, unspecified (principal)
CPT/HCPCS: 99283; 99284

== ENCOUNTER 2024-01-05 09:39 | Outpatient (CLI) | payer OTHER, SELFPAY ==
--- OUTSIDE RECORDS SUMMARY | 2024-01-05 09:44 | XMS_ITS | Clinical Summary ---
Author Organization [facility] Address [place], [place] [address] Care Team Providers Care Instructional Material Director Name Role Phone Martina Strickland PA-C Primary Care Provider [phone] Allergies Active Allergy Reactions Criticality Noted Date [...] daily with meals. Active medication order composer [place] oil 1000 mg daily Active UBIDECARENONE (COQ-10 [...] Expires: . 5 mL 6 05/29/2021 Active insulin 1 unit/mL ophthalmic solution Place 1 Drop into right eye four times daily. Refrigerate. Protect from light. Bottle expires: . 10 mL 4 11/29/2023 Active Social History Tobacco Use Types Packs/Day [...] Comments Blood Pressure 123/75 04/18/2019 2:56 PM CLAY TRANSPORTER Pulse 102 04/18/2019 2:56 PM CLAY TRANSPORTER Temperature 35.7 ??C (96.3 ??F) 04/18/2019 12:[address] Respiratory Rate 16 04/18/2019 2:56 PM CLAY TRANSPORTER Oxygen Saturation 94% 04/18/2019 2:56 PM CLAY TRANSPORTER Inhaled Oxygen Concentration - - Weight 110.8 kg (244 lb 3 oz) 04/17/2019 12:09 P M CLAY TRANSPORTER Height 161 cm (5' 3.39) 04/17/2019 12:09 PM CLAY TRANSPORTER Body Mass Index 42.73 04/17/2019 12:09 PM CLAY TRANSPORTER Plan of Treatment Health Maintenance Due Date [...] this topic Medical Devices Implanted Type Area Optical Coating Technician Device Identifier Shelf Expiration Date Model / Serial / Lot Cornea [facility] Eye - [id number] Implanted:Qty: 1 on 07/05/2017 by Ronni Horton MD at [facility] Right: Eye [facility] Eye Bank 07/09/2017 CORNEA#18- [id number]-C / [id number] -[id number] / Allograft 3.5x3.5cm F Amniograft - [id number] Implanted:Qty: 1 on 07/05/2017 by Rogelio Galvan MD at [facility] Right: Eye [employer] 02/02/2019 [id number]# / [id number] / Description:[id number] SERIAL NUMBER Plate Glaucoma Valve Flex Ahmed Silcn - [id number] Implanted:Qty: 1 on 09/30/2018 by Claudia Marcus MD at [facility] Right: Eye New [employer] 08/14/2020 FP7# / [id number] / [id number] Cornea 9.0mm+ Visiongraft W/O Scleral Rim Half - [id number] Implanted:Qty: 1 on 09/30/2018 by Claudia Marcus MD at [facility] Right: Eye [employer] 08/31/2020 [id number] # / [id number] / Description:DIN: [id number] FIN (P): [id number] Cornea [place] [facility] Eye - [id number] Os-C Implanted:Qty: 1 on 04/18/2019 by Amadeo King MD at [facility] Right: Eye [facility] Eye Bank 04/26/2019 CORNEA# / 0 OS-C / Cornea [place] [facility] Eye - [id number] Od-C Implanted:Qty: 1 on 04/18/2019 by Amadeo King MD at [facility] Right: Eye [facility] Eye Bank 04/26/2019 CORNEA# / 2160 OD-C / Iol Valencia +21 Tecnis [id number] - [id number] Implanted:Qty: 1 on 04/18/2019 by Amadeo King MD at [facility] Right: Eye [employer] 01/26/2024 [id number] 21.0# / [id number] / Allograft 3.5x3.5cm F Amniograft - [id number] Implanted:Qty: 1 on 04/18/2019 by Amadeo King MD at [facility] Right: Eye [employer] 11/07/2020 [id number]# / [id number] / Procedures Procedure Name Priority Date/Time Associated Diagnosis Comments ADULT BASIC EDUCATION MANAGER THIN PREP PAP SCREEN IMAGED Routine 11/08/2020 1:30 PM CDT from Last 3 Months or Most Recently Relevant to Health Maintenance Results * ADULT BASIC EDUCATION MANAGER THIN PREP PAP SCREEN IMAGED (11/08/2020 1:30 PM CDT) Case Report Gynecologic Cytology Report ? Case: [id number] ? Authorizing Provider: ??Martina Strickland PA-C ?Collected: ? 11/08/2020 1330 ? Ordering Location: ? [facility] ?Received: ?11/11/2020 1612 ? First Screen: ?Isabella Garcia ? Specimen: ?ADULT BASIC EDUCATION MANAGER ThinPrep Vial Screening, Cervical/Vaginal ? 11/21/2020 6:20 PM CDT [facility] INTERPRETATION/ RESULT NEGATIVE FOR INTRAEPITHELIAL LESION OR MALIGNANCY (NIL) (none) 11/21/2020 6:20 PM CDT [facility] IMEN ADEQUACY Satisfactory for evaluation Endocervical component present 11/21/2020 6:20 PM CDT [facility] [facility] ENTRAL LABOR[facility] HPV REQUEST HPV and PAP 11/21/2020 6:20 PM CDT [facility] LABORAT[facility]-C ENTRAL LABORATORY Date of LMP 11/21/2020 6:20 PM CDT [facility] [place] [facility] LAB[facility]ATORY Comment:unknown Last Pap Date 11/26/2017 11/21/2020 6:20 PM CDT [facility] Last Pap Result NIL 6:20 PM CDT [facility] Additional Information 11/21/2020 6:20 PM CDT [facility] ENTRNM LABORATORY Comment: Interpreted at [facility] [place] [facility] - [address], [place] [address] Automated Review Successful 11/21/2020 6:20 PM CDT [facility] Comment:Specimen processed s uccessfully by automated occupational rehabilitation aide device, ThinPrep Imaging System, [employer] ANCILLARY TESTING ADULT BASIC EDUCATION MANAGER HPV Ordered, Please see separate report 11/21/2020 6:20 PM CDT [facility] Note The pap test is [...] and malignant lesions. 11/21/2020 6:20 PM CDT [facility] Other (Cervical/Vagina l) 11/08/2020 1:30 PM CDT 11/11/2020 4:12 PM CDT Martina Strickland PA-C PATHOLOGY/CYTOLOGY [facility] [address] [place] [address], [place] from Last 3 Months or Most [...] 6:36 AM 07/05/2017 3:03 PM Care Teams Instructional Material Director Relationship Specialty Start Date End Date Martina Strickland PA-C [address] [place] [address] PCP - General Emergency Medicine 04/17/19
--- OUTSIDE RECORDS SUMMARY | 2024-01-05 09:44 | XMS_ITS | Referral Summary ---
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; Dry eye syndrome of both eyes 12/19/2023 Travel 12/14/2023 Refill [facility] [address] [address] Malorie Padron MD Refill Request 12/07/2023 Travel 12/07/2023 3:10 PM CDT Office Visit [facility] [address] Clin [address] [place] [phone] Emma Deshpande MD Epiretinal membrane (ERM) of right eye 12/06/2023 Travel 12/03/2023 MyC Medical Advice [facility] [address] [place] [phone] Kristyn Pastrana, RN 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 12/03/[address] [address] Rene Grant MD Refill Request (prednisoLONE acetate (PRED FORTE) 1 % ophthalmic suspension) 11/29/2023 2:15 PM CDT Office Visit [address] [address] Rene Grant MD 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); Post corneal transplant; Persistent epithelial defect of right cornea 11/28/2023 Travel 11/24/2023 Orders Only [address] [address] Emma Deshpande MD Epiretinal membrane (ERM) of right eye (Primary Dx) 11/08/2023 Travel 11/08/2023 3:00 PM CDT Office Visit [address] [address] Amadeo King MD Sattarova, Victoria, MD Post corneal transplant (Primary Dx); 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; Central corneal ulcer of right eye 11/07/2023 Travel 10/25/2023 Travel 10/25/2023 3:00 PM CDT Office Visit [address] [address] Amadeo King MD 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); Chronically dry eyes, right; Post corneal transplant; Corneal ulcer of right eye 10/24/2023 Travel from Last 3 Months Allergies Active Allergy Reactions Criticality Noted Date Comments Lidocaine Other (See Comments) 07/22/2011 can Other reaction(s): Get the EBOOKAPLACE Medications Medication Sig Dispensed Refills Start Date End Date Status metFORMIN (GLUCOPHAGE-XR) 500 MG 24 hr tablet Take 1,000 mg by mouth 2 times daily Active levothyroxine (SYNTHROID/LEVOTH ROID) 125 MCG tablet Take 125 mcg by mouth daily Active meloxicam (MOBIC) 15 MG tablet Take 15 mg by mouth daily 12/16/2021 Active mycophenolate (GENERIC EQUIVALENT) 500 MG tabletIndications :Corneal ulcer of right eye,History of corneal transplant Take 1 tablet (500 mg) by mouth 2 times daily for 180 days 180 tablet 1 07/05/2023 Active tacrolimus (PROTOPIC) 0.1 % external ointmentIndicatio ns:Post corneal transplant Apply topically daily 07/27/2022 Active cycloSPORINE (RESTASIS) 0.05 % ophthalmic emulsionIndicatio ns:Chronically dry eyes, right Place 1 drop into the right eye 2 times daily 60 each 3 10/25/2023 Active moxifloxacin (VIGAMOX) 0.5 % ophthalmic solutionIndicatio ns:Persistent epithelial defect of right cornea,Corneal ulcer of right eye Place 1 drop into the right eye 4 times daily 5 mL 11 10/25/2023 Active COMPOUNDED NON-CONTROLLED SUBSTANCE (CMPD RX) - PHARMACY TO MIX COMPOUNDED MEDICATIONIndicat ions: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 Insulin compounded ophthalmic drop 1U/mL 1 drop QID OD Dispense 1 bottle for 28day supply 1 mL 4 11/29/2023 Active prednisoLONE acetate (PRED FORTE) 1 % ophthalmic suspensionIndicat ions:Post corneal transplant,Cornea l transplant rejection, right eye Place 1-2 drops into the right eye 3 times daily 10 mL 2 12/03/2023 Active latanoprost (XALATAN) 0.005 % ophthalmic solutionIndicatio ns: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 INSTILL 1 DROP IN RIGHT EYE DAILY 2.5 mL 2 12/14/2023 Active latanoprost (XALATAN) 0.005 % ophthalmic solutionIndicatio ns: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 INSTILL 1 DROP IN RIGHT EYE DAILY 2.5 mL 2 07/16/2023 4 Discontinue d(Reorder (No AVS)) Active Problems Problem Noted Date [...] Care Team (Late st Contact Info) Description 01/17/2024 3:00 PM CDT Office Visit [facility] [address] [facility] 9th Fl Clin [address] [place] [phone] Amadeo King MD [address] [facility] [address] [place] [address] 12/05/2024 3:00 PM CDT Office Visit [facility] [address] [facility] [address] Clin [address] [place] [address] Emma Deshpande MD [address] [facility] [address] [place] [address] Procedures Procedure Name Priority Date/Time Associated Diagnosis Comments OCT RETINA SPECTRALIS OU (BOTH EYE) Routine 12/07/2023 5:49 PM CDT Epiretinal membrane (ERM) of right eye BASIC METABOLIC PANEL STAT 07/22/2011 8:00 AM CDT TSH STAT 07/22/2011 8:00 AM CDT from Last 3 Months or Most Recently Relevant to Health Maintenance Results * OCT Retina Spectralis OU (both eyes) (12/07/2023 5:49 PM CDT) Narrative Emma Deshpande MD - 12/07/2023 5:49 PM CDT Performed by: wt . Patient cooperation: Reliable . Right Eye Reliability of the test: Poor . Left Eye Reliability of the test: Good . Plan: Monitor . Interval: Same . Notes Findings and interpretation: retinal findings consistent with patient diagnoses as discussed in note Emma Deshpande MD OPHTHALMOLOGY * (ABNORMAL) TSH (07/22/2011 8:00 AM CDT) TSH 14.50(H) 0.4 - 5.0 mU/L [facility] Blood specimen (specimen) 07/22/2011 8:00 AM CDT 07/22/2011 8:14 AM CDT Yesenia Gomez MD LAB - BLOOD O RDERABLES [facility] * Basic metabolic panel (07/22/2011 8:00 AM CDT) Sodium 138 133 - 144 mmol/L [facility] Potassium 4.2 3.4 - 5.3 mmol/L [facility] Chloride 107 94 - 109 mmol/L [facility] Carbon Dioxide 23 20 - 32 mmol/L [facility] Anion Gap 9 6 - 17 mmol/L [facility] Glucose 94 60 - 99 mg/dL [facility] Urea Nitrogen 14 5 - 24 mg/dL [facility] Creatinine 0.68 0.52 - 1.04 mg/dL [facility] GFR Estimate >90 >60 mL/min/1.7 m2 [facility] GFR Estimate If Black >90 >60 mL/min/1.7 m2 [facility] Calcium 9.1 8.5 - 10.4 mg/dL [facility] Blood specimen (specimen) 07/22/2011 8:00 AM CDT 07/22/2011 8:14 AM CDT Yesenia Gomez MD LAB - BLOOD O RDERABLES [facility] from Last 3 Months or Most Recently Relevant to Health Maintenance Care Teams Table Worker Relationship Specialty Start Date End Date Martina Strickland PA-C PCP - General Physician Order Caller 07/19/19 Ailin Zavala MD Internal Medicine 07/28/11 Amadeo King MD [address] [facility] [address] [place], [place] [phone] Ophthalmology 12/22/19 Joseph Trivedi MD [facility] [address] [place], [place] [phone] Rheumatology 05/21/20 Rene Grant MD [address] [place], [place] [phone] Assigned Surgical Provider 09/12/22
--- OUTSIDE RECORDS SUMMARY | 2024-01-05 09:44 | XMS_ITS | Clinical Summary ---
Author Organization [facility] Address [address] [place] [address] Care Team Providers Care Spring Clipper Name Role Phone Ailin Zavala MD Unavailable [phone] Martina Strickland PA-C Primary Care Provider Amadeo King MD Unavailable [phone] Joseph Trivedi MD Unavailable [phone] Rene Grant MD Unavailable [phone] Allergies Active Allergy Reactions Criticality Noted Date Comments Lidocaine Other (See Comments) 07/22/2011 can Other reaction(s): Get the [employer] Medications Medication Sig Dispensed Refills Start Date [...] Date Type Department Care Team Description 12/20/2023 9:15 AM CDT Office Visit 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 12/03/[address] [address] Rene Grant MD Refill Request (prednisoLONE acetate (PRED FORTE) 1 % ophthalmic suspension) 11/29/2023 2:15 PM CDT Office Visit [address] [address] Rene Grant MD 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 [address] [facility] [address] [place] [address] Amadeo King MD 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); Chronically dry eyes, right; Post corneal transplant; Corneal ulcer of right eye 10/25/2023 Travel 10/24/2023 Travel from Last 3 Months Family History Medical [...] Description 01/17/2024 3:00 PM CDT Office [facility] [address] [facility] 9[address] Fl Clin [address] [place] [phone] Amadeo King MD [address] [facility] [address] [place], [place] [address] 12/05/2024 3:00 PM CDT Office Visit [facility] [address] [facility] 9[address] Fl Clin [address] [place] [phone] Emma Deshpande MD [address] [facility] [address] [place], [place] [address] Health Maintenance Due Date Last Done Comments [...] REFLEX 2012 07/22/2011 GLUCOSE 2014 07/22/2011, 09/16/2008 COVID-19 Vaccine ( season) 2023 03/06/2023, 05/01/2021, 08/17/2020, Additional history exists PAP 11/09/2023 11/08/2020, 11/08/2020 INFLUENZA VACCINE (#1) 2024 3, 02/09/2022, 01/28/2019, Additional history exists DTAP/TDAP/TD IMMUNIZATION (2 - Td or Tdap) 11/27/2027 11/26/2017, 06/17/2007 PHQ-2 (once per calendar year) Completed 08/30/2023, [...] CDT) TSH 14.50(H) 0.4 - 5.0 mU/L [facility] Blood specimen (specimen) 07/22/2011 8:00 AM CDT 07/22/2011 8:14 AM CDT Yesenia Gomez MD LAB - BLOOD O RDERABLES [facility] * Basic metabolic panel (07/22/2011 8:00 AM CDT) Sodium 138 133 - 144 mmol/L [facility] Potassium 4.2 3.4 - 5.3 mmol/L [facility] Chloride 107 94 - 109 mmol/L [facility] Carbon Dioxide 23 20 - 32 mmol/L [facility] Anion Gap 9 6 - 17 mmol/L [facility] Glucose 94 60 - 99 mg/dL [facility] Urea Nitrogen 14 5 - 24 mg/dL [facility] Creatinine 0.68 0.52 - 1.04 mg/dL [facility] GFR Estimate >90 >60 mL/min/1.7 m2 [facility] GFR Estimate If Black >90 >60 mL/min/1.7 m2 [facility] Calcium 9.1 8.5 - 10.4 mg/dL [facility] Blood specimen (specimen) 07/22/2011 8:00 AM CDT 07/22/2011 8:14 AM CDT Yesenia Gomez MD LAB - BLOOD O RDERABLES [facility] from Last 3 Months or Most Recently Relevant to Health Maintenance Care Teams Spring Clipper Relationship Specialty Start Date End Date Martina Strickland PA-C PCP - General Physician Hot Walker 07/19/19 Ailin Zavala MD Internal Medicine 07/28/11 Amadeo King MD [address] [address] Ophthalmology 12/22/19 Joseph Trivedi MD [facility] [address] [address] Rheumatology 05/21/20 Rene Grant MD [address] [place] [address] Assigned Surgical Provider 09/12/22
--- OUTSIDE RECORDS SUMMARY | 2024-01-05 09:44 | XMS_ITS | Continuity of Care Document ---
Author Organization [facility] Address [address] [facility] [address] [place] [address] Phone Care Team Providers Care Loans Officer Name Role Phone Farooq RAGLANDBertramJoseph Unavailable Unavailable [...] , [address], [place], [address], [place] tel:[phone] [facility] , Corneal transplant monitor Chronic High Risk Meds (chief complaint) Unspecified complication of corneal transplant, right eyeUnspecifi ed pterygium of right eyeUnspecifi ed complication of corneal transplantOt her long term care social worker (current) drug therapy 1 Farooq Ruiz. [facility] [address], [place], [address], [place]. tel:[phone] Referring Provider: Joseph Martin, [facility] [address], [place], [address]. tel:[phone] Office/Outpa tient Visit, Est [facility] , [address], [place], [address], [place] tel:[phone] [facility] , Corneal transplant monitor Chronic High Risk Meds (chief complaint) Unspecified pterygium of right eyeUnspecifi ed complication of corneal transplantOt her fpc (current) drug therapyUnspe cified complication of corneal transplant, right eye 1 Farooq Ruiz. [facility] [address], [place], [address], [place]. tel:[phone] Referring Provider: Joseph Martin, [facility] [address], [place], [address]. tel:[phone] Office/Outpa tient Visit, Est [facility] , [address], [place], [address], [place] tel:[phone] [facility] , Unspecified pterygium of right eyeUnspecifi ed complication of corneal transplantOt her fpc (current) drug therapy 0 Farooq Ruiz. [facility] [address], [place], [address], [place]. tel:[phone] Referring Provider: Joseph Martin, [facility] [address], [place], [address]. tel:[phone] Office/Outpa tient Visit, Est [facility] , [address], [place], [address], [place] tel:[phone] [facility] , Unspecified pterygium of right eyeUnspecifi ed complication of corneal transplantOt her fpc (current) drug therapy 0 Farooq Ruiz. [facility] [address], [place], [address], [place]. tel:[phone] Specialist: Amadeo King, [facility] [address] [facility] [address], [place], [address]. tel:[phone] ng Provider: Joseph Martin, [facility] [address], [place], [address]. tel:[phone] Office/Outpa tient Visit, Est [facility] , [address], [place], [address], [place] tel:[phone] [facility] , Unspecified pterygium of right eyeUnspecifi ed complication of corneal transplantOt her fpc (current) drug therapy 9 Farooq Ruiz. [facility] [address], [place], [address], [place]. tel:[phone] Specialist: Amadeo King, [facility] [address] [facility] [address], [place], [address]. tel:[phone] ng Provider: Joseph Martin, [facility] [address], [place], [address]. tel:[phone] Office/Outpa tient Visit, New [facility] , [address], [place], [address], [place] tel:[phone] [facility] , Unspecified complication of corneal transplantUn specified pterygium of right eyeOther long term care social worker (current) drug therapy 9 Farooq Ruiz. [facility] [address], [place], [address], [place]. tel:[phone] Referring Provider: Joseph Martin, [facility] [address], [place], [address]. tel:[phone] Family History Family Member Type Diagnosis Age At Onset Mother Problem (finding) Arthritis Immunizations Vaccine Date Status Comments COVID-19 Pfizer administered Source: Otdean r Provider COVID-19 Pfizer administered Source: Othe r Provider Payers Payer name Insurance type Covered alliance party ID Authoriza tion(s) [employer] CI [id number] Social History Type Description Quantity Date Captured [...] complication of corn eal transplant assessment Other fpc (current) drug t herapy Mental Status Date Cognitive Assessment Orientation - [place] ed to time, place, person, situation. Patient Care Teams Name Effective Dates (start - stop) Status Members No Information
--- OUTSIDE RECORDS SUMMARY | 2024-01-05 09:45 | XMS_ITS | Encounter Summary ---
Author Organization [place] Address [address] [place] [address]. [place] [address] Care Team Providers Care Engineering Professionals Name Role Phone Ailin Zavala MD Unavailable [phone] Martina Strickland PA-C Primary Care Provider Amadeo King MD Unavailable [phone] Joseph Trivedi MD Unavailable [phone] Rene Grant MD Unavailable [phone] Encounter Details Date Type Department Care Team (Latest Contact Info) Description 11/08/2023 Travel Social History Tobacco Use Types Packs/Day [...] Description 01/17/2024 3:00 PM CDT Office Visit [facility] [address] 9 [address] Clin 9A [place] [address] Amadeo King MD 420 [facility] 493 [place] [address] 12/05/2024 3:00 PM CDT Office Visit [facility] 516 [facility] 9th Fl Clin 9A [place] [address] Emma Deshpande MD 516 [facility] [address] 911 [place] [address] documented as of this encounter Visit Diagnoses Not on filedocumented in this encounter Care Teams Engineering Professionals Relationship Specialty Start Date End Date Martina Strickland PA-C PCP - General Physician Certified Phlebotomist 07/19/19 Ailin Zavala MD Internal Medicine 07/28/11 Amadeo King MD [address] [place] [address] 213135 Ophthalmology 12/22/19 Joseph Trivedi MD [facility] [address] [facility] 215 [place], [place] [address] Rheumatology 05/21/20 Rene Grant MD [address] [place] [address] 088245 Assigned Surgical Provider 09/12/22 documented as of this encounter
--- OUTSIDE RECORDS SUMMARY | 2024-01-05 09:45 | XMS_ITS | Encounter Summary ---
Author Organization [place] Address [address] [place] [address] Care Team Providers Care Reduction Furnace Operator Helper Name Role Phone Ailin Zavala MD Unavailable [phone] Martina Strickland PA-C Primary Care Provider Amadeo King MD Unavailable [phone] Joseph Trivedi MD Unavailable [phone] Rene Grant MD Unavailable [phone] Reason for Visit * Reason Comments Follow Up # s/p multiple PKP O D Encounter Details Date Type Department Care Team (Late st Contact Info) Description 12/20/2023 9:15 AM CDT Office Visit [facility] [address] 9[facility] Clin 9A [place] [address] Rene Grant MD [address] [place] [address] Post corneal transplant (Primary Dx); 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 Marcus. 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 Deshpande. Interval hx 12/20/2023 Chief Complaint(s) and History of Present Illness(es) Follow Up In right eye. Associated symptoms include redness. Negative for dryness, eye pain, tearing and floaters. Pain was noted as 0/10. Comments Patient states has not noticed any difference with vision since the last visit. Taking Prednisolone TID right eye, Moxifloxacin BID right eye, Out of restasis, Latanoprost at bedtime right eye. 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 Trivedi ([facility]) DM s -- was following at [facility] with Dr. 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/18) -- improved A/Cdepth and IOP s/p KLAL/PKP/lens explantation/scleral fixated lens right eye 04/18/2019 S/p conjunctival chalasis right eye 06/14/2019 Gtts: Pred TID OD Moxifloxacin BID OD Tacrolimus 0.1% QHS [...] conj chalasis excision nasally right eye 06/14/2019 #persistent epi defect OD - Severe astigmatism related to tight sutures; gradually improving with serial suture removal. - placed Kontur 9.0/18.0 05/13/2020 due to injection of KLAL graft - RGP achieved 20/30 vision prior 12/20/23 improving epi defect today, patient is more comfortable with CL in place #Right eye corneal scar Recent corneal ulcer following with Dr. Grant. Referred for evaluation of possible repeat KLAL +PKP PLAN: Continue current mangment for now. Will consider more treatments AMT vs Klal with Dr King - BCL OD 8.5 12/20/23 - continue PF AT Q1H right eye - Continue Prednisolone to TID right eye - to help re-epithelialization - Continue moxifloxacin to BID OD - continue tacrolimus to bedtime only while she is using RGP OD - s/p punctal plug RLL 08/23/23 - restasis BID OD - start topical insulin drops. Prescription sent (was not called by the pharmacy last week) - check CMP/CBC - had labs last week (09/30) - waiting for results to be scanned in. - continue CellCept 500 BID - continue Valtrex 500 mg daily #. Dry eyes OU - continue PF AT Q1H OD - warm compresses - PF glaucoma meds if possible #. Mixed mechanism glaucoma OD - Previously seen by Dr. Padron - continue latanoprost qhs right eye #. 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 DM s Retinopathy - continue to follow with Dr. Deshpande #. Pseudophakia, right eye - S/p Yag Cap 05/2020 Follow up: 1 week, sooner if problems. Casi Whiting MD PGY-3 Department of Ophthalmology November 29, 2023 3:41 PM Attending Physician Attestation: Complete documentation of historical [...] documented in this encounter Nursing Notes * Katerina Duong - 12/20/2023 9:15 AM CDT Chief Complaints and History of Present Illnesses Patient presents with Follow Up # s/p multiple PKP OD Chief Complaint(s) and History of Present Illness(es) Follow Up Course: stable Comments: # s/p multiple PKP OD Comments - replace BCL OD 8.5 Pt reports she had it replaced on 11/29/2023 - continue PF AT TID - Continue moxifloxacin to BID OD - continue tacrolimus to bedtime only while she is using RGP OD - pt reports she is using the tacrolimus although she is not using a RGP lens - restasis BID OD -start topical insulin drops. Prescription sent -Pt has not started yet, reports she has not started yet - continue CellCept 500 BID - continue Valtrex 500 mg daily - Pt is not using this medication -Latanoprost BID Pt reports her eye feels fine. No change in vision. Katerina Duong OA 9:18 AM December 20, 2023 documented in this encounter Plan of Treatment Upcoming Encounters Date Type Department Care Team (Late st Contact Info) Description 01/17/2024 3:00 PM CDT Office Visit [facility] 516 [facility] 9th Fl Clin 9A [place] [address] Amadeo King MD 420 [facility] 493 [place] [address] 12/05/2024 3:00 PM CDT Office Visit [facility] 516 [facility] 9th Fl Clin 9A [place] [address] Emma Deshpande MD 516 [facility] [address] 911 [place], [place] [address] documented as of this encounter Visit Diagnoses Diagnosis 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
--- OUTSIDE RECORDS SUMMARY | 2024-01-05 09:45 | XMS_ITS | Encounter Summary ---
Author Organization [place] Address [address] [place] [address]. [place] [address] Care Team Providers Care Chain Person Name Role Phone Ailin Zavala MD Unavailable [phone] Martina Strickland PA-C Primary Care Provider Amadeo King MD Unavailable [phone] Joseph Trivedi MD Unavailable [phone] Rene Grant MD Unavailable [phone] Encounter Details Date Type Department Care Team (Latest Contact Info) Description 10/24/2023 Travel Social History Tobacco Use Types Packs/Day [...] Description 01/17/2024 3:00 PM CDT Office Visit [facility] [address] 9 [address] Clin 9A [place] [address] Amadeo King MD 420 [facility] 493 [place] [address] 12/05/2024 3:00 PM CDT Office Visit [facility] 516 [facility] 9th Fl Clin 9A [place] [address] Emma Deshpande MD 516 [facility] [address] 911 [place] [address] documented as of this encounter Visit Diagnoses Not on filedocumented in this encounter Care Teams Chain Person Relationship Specialty Start Date End Date Martina Strickland PA-C PCP - General Physician Asp Net Developer 07/19/19 Ailin Zavala MD Internal Medicine 07/28/11 Amadeo King MD [address] [place] [address]38205 Ophthalmology 12/22/19 Joseph Trivedi MD [facility] [address] [facility] 215 [place], [place] [address] Rheumatology 05/21/20 Rene Grant MD [address] [place] [address] [id number] Assigned Surgical Provider 09/12/22 documented as of this encounter
--- OUTSIDE RECORDS SUMMARY | 2024-01-05 09:45 | XMS_ITS | Encounter Summary ---
Author Organization [place] Address [address] [place] [address]. [place] [address] Care Team Providers Care Behaviour Support Teacher Name Role Phone Ailin Zavala MD Unavailable [phone] Martina Strickland PA-C Primary Care Provider Amadeo King MD Unavailable [phone] Amadeo King MD Unavailable [phone] Joseph Trivedi MD Unavailable [phone] Kishan Spain OD Unavailable [phone] Emma Deshpande MD Unavailable [phone] Rene Grant MD Unavailable [phone] Amadeo Winston MD Unavailable [phone] Amadeo Winston MD Unavailable [phone] Rene Grant MD Unavailable [phone] Rene Grant MD Unavailable [phone] Reason for Visit * Reason Comments Medication Refill PREDNISOLONE ACET O/ DILSHAD 1% Encounter Details Date Type Department Care Team (Late st Contact Info) Description 05/28/2021 Refill [facility] Eye [facility] - [address] 4th [place] [address] Silas Cody MD [facility] [place] [address] Medication Refill (PREDNISOLONE ACET O/DILSHAD [...] COVID-19? No / Unsure 05/29/2021 2:48 PM [employer] SALES CONSULTANT documented as of this encounter Miscellaneous Notes [...] Leo RN Central Triage Red Flags/Med Refills SALES CONSULTANT documented in this encounter Plan of Treatment Upcoming Encounters Date Type Department Care Team (Late st Contact Info) Description 01/17/2024 3:00 PM CDT Office Visit [facility] 516 [facility] 9th In Clin 9A [place] [address] Amadeo King MD 420 [facility] 493 [place] [address] 12/05/2024 3:00 PM CDT Office Visit [facility] [place] [address] [facility] 9th In Clin 9A [place] [address] Emma Deshpande MD 516 [facility] 911 [place], [place] [address] documented as of this encounter Visit Diagnoses 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 documented in this encounter Care Teams Behaviour Support Teacher Relationship Specialty Start Date End Date Martina Strickland PA-C PCP - General Physician Social Work Coordinator 07/19/19 Ailin Zavala MD Internal Medicine 07/28/11 Amadeo King MD [address] [place] [address] 493 [place], [place] [address] Ophthalmology 12/22/19 Amadeo King MD [address] [place] [address] 493 [place] [address] Assigned PCP 04/07/20 06/02/23 Joseph Trivedi MD [facility] [address] [facility] 215 [place], [place] [address] Rheumatology 05/21/20 Kishan Spain OD 909 [facility] 4th [place] [address] Assigned Surgical Provider 12/08/20 03/27/22 Emma Deshpande MD [address] [place] [address] 911 [place], [place] [address]395 Assigned Surgical Provider 03/28/22 04/03/22 Rene Grant MD [address] [place] [address] 344675 Assigned Surgical Provider 04/04/22 08/21/22 Amadeo Winston MD [address] [place] [address] 797265 Assigned Surgical Provider 08/22/22 08/28/22 Amadeo Winston MD [address] [place] [address] Assigned Surgical Provider 09/05/22 09/11/22 Rene Grant MD [address] [place] [address] [id number] Assigned Surgical Provider 08/29/22 09/04/22 Rene Grant MD [address] [place] [address] Assigned Surgical Provider 09/12/22 documented as of this encounter
--- OUTSIDE RECORDS SUMMARY | 2024-01-05 09:45 | XMS_ITS | Encounter Summary ---
Author Organization [place] Address [address] [place] [address] Care Team Providers Care Electric Car Operator Name Role Phone Ailin Zavala MD Unavailable [phone] Martina Strickland PA-C Primary Care Provider Amadeo King MD Unavailable [phone] Joseph Trivedi MD Unavailable [phone] Rene Grant MD Unavailable [phone] Reason for Visit * Reason Onset Date Comments Appointment 09/07/2023 2-3 week follow up Encounter Details Date Type Department Care Team (Late st Contact Info) Description 09/07/2023 Telephone [facility] 516 [facility] 9[facility] Clin 9A [place] [address] Amadeo King MD [address] [address] Appointment (2-3 week follow up) Social History [...] Callie Norwood - 09/07/2023 11:22 AM CDT [facility] Phone Message May a detailed [...] Message routed to: [facility] ([facility]): EYE Travel Screening: Not Applicable documented in this encounter Plan of Treatment Upcoming Encounters Date Type Department Care Team (Late st Contact Info) Description 01/17/2024 3:00 PM CDT Office Visit [facility] 516 [facility] 9th Ar Clin 9A [place] [address] Amadeo King MD 420 [facility] 493 [place] [address] 12/05/2024 3:00 PM CDT Office Visit [facility] 516 [facility] 9th Fl Clin 9A [place] [address] Emma Deshpande MD 516 [facility] [address] 911 [place] [address] documented as of this encounter Visit Diagnoses Not on filedocumented in this encounter Care Teams Electric Car Operator Relationship Specialty Start Date End Date Martina Strickland PA-C PCP - General Physician Family Practitioner 07/19/19 Ailin Zavala MD Internal Medicine 07/28/11 Amadeo King MD 420 [facility] 493 [place] [address] Ophthalmology 12/22/19 Joseph Trivedi MD [facility] [address] 215 [place], [place] [address] Rheumatology 05/21/20 Rene Grant MD 516 [place] [address] Assigned Surgical Provider 09/12/22 documented as of this encounter
--- OUTSIDE RECORDS SUMMARY | 2024-01-05 09:45 | XMS_ITS | Encounter Summary ---
Author Organization [place] Address [address] [place] [address]. [place] [address] Care Team Providers Care Jacquard Lace Weaver Name Role Phone Ailin Zavala MD Unavailable Martina Strickland PA-C Primary Care Provider Amadeo King MD Unavailable [phone] Joseph Trivedi MD Unavailable [phone] Rene Grant MD Unavailable [phone] Encounter Details Date Type Department Care Team (Latest Contact Info) Description 11/07/2023 Travel Social History Tobacco Use Types Packs/Day [...] Description 01/17/2024 3:00 PM CDT Office Visit [facility] [address] 9 [address] Clin 9A [place] [address] Amadeo King MD 420 [facility] 493 [place] [address] 12/05/2024 3:00 PM CDT Office Visit [facility] 516 [facility] 9th Fl Clin 9A [place] [address] Emma Deshpande MD 516 [facility] [address] 911 [place] [address] documented as of this encounter Visit Diagnoses Not on filedocumented in this encounter Care Teams Jacquard Lace Weaver Relationship Specialty Start Date End Date Martina Strickland PA-C PCP - General Physician Employment Specialist 07/19/19 Ailin Zavala MD Internal Medicine 07/28/11 Amadeo King MD [address] [place] [address] Ophthalmology 12/22/19 Joseph Trivedi MD [facility] [address] [facility] 215 [place], [place] [address] Rheumatology 05/21/20 Rene Grant MD [address] [place] [id number] Assigned Surgical Provider 09/12/22 documented as of this encounter
--- OUTSIDE RECORDS SUMMARY | 2024-01-05 09:45 | XMS_ITS | Encounter Summary ---
Author Organization [place] Address [address] [place] [address] Care Team Providers Care Underwriting Internship Name Role Phone Ailin Zavala MD Unavailable [phone] Martina Strickland PA-C Primary Care Provider Amadeo King MD Unavailable [phone] Joseph Trivedi MD Unavailable [phone] Rene Grant MD Unavailable [phone] Encounter Details Date Type Department Care Team (Late st Contact Info) Description 11/24/2023 Orders Only [facility] [place] 684456 [facility] 9th Sc Clin 9A [place] [address] Emma Deshpande MD [address] [place] [address] 911 [place], [place] [address] Epiretinal membrane (ERM) of right eye (Primary Dx) Social History [...] Description 01/17/2024 3:00 PM CDT Office Visit [facility] 516 [facility] 9th Fl Clin 9A [place] [address] Amadeo King MD 420 [facility] 493 [place] [address] 12/05/2024 3:00 PM CDT Office Visit [facility] 516 [facility] 9th Fl Clin 9A [place] [address] Emma Deshpande MD 516 [facility] 911 [place] [address] documented as of this encounter Results * OCT Retina Spectralis OU (both [...] discussed in note Emma Deshpande MD OPHTHALMOLOGY documented in this encounter Visit Diagnoses Diagnosis Epiretinal membrane (ERM) of right eye- Primary Epiretinal membrane (ERM) of right eye documented in this encounter Care Teams Underwriting Internship Relationship Specialty Start Date End Date Martina Strickland PA-C PCP - General Physician Motor Runner 07/19/19 Ailin Zavala MD Internal Medicine 07/28/11 Amadeo King MD 420 [facility] 493 [place] [address] Ophthalmology 12/22/19 Joseph Trivedi MD [facility] [address] [address] Rheumatology 05/21/20 Rene Grant MD 516 [place] [address] Assigned Surgical Provider 09/12/22 documented as of this encounter
--- OUTSIDE RECORDS SUMMARY | 2024-01-05 09:45 | XMS_ITS | Encounter Summary ---
Author Organization [place] Address [address] [place] [address]. [place] [address] Care Team Providers Care Php Wordpress Developer Name Role Phone Ailin Zavala MD Unavailable Martina Strickland PA-C Primary Care Provider Amadeo King MD Unavailable [phone] Joseph Trivedi MD Unavailable [phone] Rene Grant MD Unavailable [phone] Encounter Details Date Type Department Care Team (Latest Contact Info) Description 12/07/2023 Travel Social History Tobacco Use Types Packs/Day [...] Description 01/17/2024 3:00 PM CDT Office Visit [facility] Eye [address] 9 Ms Clin 9A [place] [address] Amadeo King MD 420 [facility] 493 [place] [address] 12/05/2024 3:00 PM CDT Office Visit [facility] 516 [facility] 9th Fl Clin 9A [place] [address] Emma Deshpande MD 516 [facility] 911 [place] [address] documented as of this encounter Visit Diagnoses Not on filedocumented in this encounter Care Teams Php Wordpress Developer Relationship Specialty Start Date End Date Martina Strickland PA-C PCP - General Physician Emergency Services Dispatcher 07/19/19 Ailin Zavala MD Internal Medicine 07/28/11 Amadeo King MD [address] [place] [address]605 Ophthalmology 12/22/19 Joseph Trivedi MD [facility] [address] [facility] 215 [place], [place] [address] Rheumatology 05/21/20 Rene Grant MD [address] [place] [address] 969075 Assigned Surgical Provider 09/12/22 documented as of this encounter
--- OUTSIDE RECORDS SUMMARY | 2024-01-05 09:45 | XMS_ITS | Encounter Summary ---
Author Organization [facility] Address [address] [place] [address] Care Team Providers Care Librarian Helper Name Role Phone Ailin Zavala MD Unavailable [phone] Martina Strickland PA-C Primary Care Provider Amadeo King MD Unavailable [phone] Amadeo King MD Unavailable [phone] Joseph Trivedi MD Unavailable [phone] Claudia Marcus MD Unavailable [phone] Kishan Spain OD Unavailable [phone] Emma Deshpande MD Unavailable [phone] Kishan Spain OD Unavailable [phone] Emma Deshpande MD Unavailable [phone] Rene Grant MD Unavailable [phone] Amadeo Winston MD Unavailable [phone] Amadeo Winston MD Unavailable [phone] Rene Grant MD Unavailable [phone] Rene Grant MD Unavailable [phone] Reason for Visit * Reason Onset Date Comments Refill Request 08/28/2020 mycophenolate (G ENERIC EQUIVALENT) 250 MG capsule and mycophenalate 500 mg Encounter Details Date Type Department Care Team (Late st Contact Info) Description 08/28/2020 [facility]ill [facility] Emergency Department 516 [facility] 9th Fl Clin 9A [place] [address] Amadeo King MD 420 [facility] 493 [place], [place] 6[address] Refill Request (mycophenolate (GENERIC EQUIVALENT) 250 MG [...] Stacey Ventura - 08/28/2020 12:48 PM CDT [facility] Phone Message May a detailed message be left on voicemail: yes Reason for Call: Medication Refill Request Has the patient contacted the pharmacy for the refill? Yes Name of medication being requested: mycophenolate (GENERIC EQUIVALENT) 250 MG capsule and mycophenalate 500 mg Provider who prescribed the medication: Dr. King Pharmacy: [id number] [place], [place] - [address] AT [facility] [address] Date medication is needed: now-pt has 1 left. Spouse didn't tell her she was almost out. Thanks Action Taken: Message routed to: [facility] eye gen Travel Screening: Not Applicable documented in this encounter Plan of Treatment Upcoming Encounters Date Type Department Care Team (Late st Contact Info) Description 01/17/2024 3:00 PM CDT Office Visit [facility] [place] [address] [facility] 9th [facility] 9A [place] [address] Amadeo King MD 420 [facility] 493 [place] [address] 12/05/2024 3:00 PM CDT Office Visit [facility] Emergency Department 516 [facility] 9th Ks Clin 9A [place] [address] Emma Deshpande MD [address] [place] [address] [address] [address] [place], [place] 9846[address] documented as of this encounter Visit Diagnoses Diagnosis 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 documented in this encounter Care Teams Librarian Helper Relationship Specialty Start Date End Date LyMartina moncada PA-C PCP - General Physician Cottrell Operator 07/19/19 Ailin Zavala MD Internal Medicine 07/28/11 Amadeo King MD 420 [facility] 493 [place], [place] [address] Ophthalmology 12/22/19 Amadeo King MD [address] [address] Assigned PCP 04/07/20 06/02/23 Joseph Trivedi MD [facility] [address] [facility] 215 [place] [address] Rheumatology 05/21/20 Claudia Marcus MD [facility] EYE [facility] 6533 [place] [address] Assigned Surgical Provider 06/30/20 10/19/20 Kishan Spain, OD [address] [place] [address] 4th [place] [phone] Assigned Surgical Provider 10/20/20 11/23/20 Emma Deshpande MD 6 [facility] 911 [place], [place] 86[address]85 Assigned Surgical Provider 11/24/20 12/07/20 Kishan Spain, OD [facility] 4th [place] [address] Assigned Surgical Provider 12/08/20 03/27/22 Emma Deshpande MD 516 [facility] 911 [place], [place] [address]165 Assigned Surgical Provider 03/28/22 04/03/22 Rene Grant MD [address] [place] [address] 489455 Assigned Surgical Provider 04/04/22 08/21/22 Amadeo Winston MD 420 [place], [place] 0[address]325 Assigned Surgical Provider 08/22/22 08/28/22 Amadeo Winston MD 420 [place], [place] 111635 Assigned Surgical Provider 09/05/22 09/11/22 Rene Grant MD [address] [place] [address] Assigned Surgical Provider 08/29/22 09/04/22 Rene Grant MD [address] [place] [address] Assigned Surgical Provider 09/12/22 documented as of this encounter
--- OUTSIDE RECORDS SUMMARY | 2024-01-05 09:45 | XMS_ITS | Encounter Summary ---
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 Social [...] Description 01/17/2024 3:00 PM CDT Office Visit [facility] 516 [facility] 9th Pr Clin 9A [place] [address] Amadeo King MD 420 [facility] 493 [place] [address] 12/05/2024 3:00 PM CDT Office Visit [facility] 516 [facility] 9th Pr Clin 9A [place] [address] Emma Deshpande MD 6 [facility] [address] [address] [place], [place] [address] documented as of this encounter Visit Diagnoses 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
--- OUTSIDE RECORDS SUMMARY | 2024-01-05 09:45 | XMS_ITS | Encounter Summary ---
Author Organization [facility] Address [address] [place] [address]. [place] [address] Care Team Providers Care Assistant Auto Center Manager Name Role Phone Ailin Zavala MD Unavailable [phone] Martina Strickland PA-C Primary Care Provider Amadeo King MD Unavailable [phone] Joseph Trivedi MD Unavailable [phone] Rene Grant MD Unavailable [phone] Encounter Details Date Type Department Care Team (Latest Contact Info) Description 12/20/2023 Travel Social History Tobacco Use Types Packs/Day [...] Description 01/17/2024 3:00 PM CDT Office Visit [facility] Eye [address] 9 [address] Clin 9A [place] [address] Amadeo King MD 420 [facility] 493 [place] [address] 12/05/2024 3:00 PM CDT Office Visit [facility] Eye [facility] 516 [facility] 9th Fl Clin 9A [place] [address] Emma Deshpande MD 516 [facility] [address] 911 [place] [address] documented as of this encounter Visit Diagnoses Not on filedocumented in this encounter Care Teams Assistant Auto Center Manager Relationship Specialty Start Date End Date Martina Strickland PA-C PCP - General Physician French Edge Operator 07/19/19 Ailin Zavala MD Internal Medicine 07/28/11 Amadeo King MD [address] [place] [address] Ophthalmology 12/22/19 Joseph Trievdi MD [facility] [address] [facility] 215 [place], [place] [address] Rheumatology 05/21/20 Rene Grant MD [address] [place] [address] Assigned Surgical Provider 09/12/22 documented as of this encounter
--- OUTSIDE RECORDS SUMMARY | 2024-01-05 09:45 | XMS_ITS | Encounter Summary ---
Author Organization [facility] Address [address] [place] [address] Care Team Providers Care Bilingual Customer Service Name Role Phone Ailin Zavala MD Unavailable [phone] Martina Strickland PA-C Primary Care Provider Amadeo King MD Unavailable [phone] Joseph Trivedi MD Unavailable [phone] Rene Grant MD Unavailable [phone] Encounter Details Date Type Department Care Team (Late st Contact Info) Description 09/09/2023 [facility] Eye [address] Clin 9A [place] [address] [facility] Social History Tobacco Use Types Packs/Day Years [...] Description 01/17/2024 3:00 PM CDT Office Visit [facility] Eye [facility] [place] 516 [facility] 9th Id Clin 9A [place] [address] Amadeo King MD 420 [facility] 493 [place] [address] 12/05/2024 3:00 PM CDT Office Visit [facility] Eye [facility] [place] 516 [facility] 9th [facility] 9A [place] [address] Emma Deshpande MD [address] [place] [address] 911 [place], [place] [address] documented as of this encounter Visit Diagnoses Not on filedocumented in this encounter Care Teams Bilingual Customer Service Relationship Specialty Start Date End Date aMrtina Strickland PA-C PCP - General Physician Display Mechanic 07/19/19 Ailin Zavala MD Internal Medicine 07/28/11 Amadeo King MD [address] [place] [address] 493 [place], [place] [address] Ophthalmology 12/22/19 Joseph Trivedi MD [facility] [address] [facility] 215 [place], [place] [address] Rheumatology 05/21/20 Rene Grant MD [address] [place] [address] 473025 Assigned Surgical Provider 09/12/22 documented as of this encounter
--- OUTSIDE RECORDS SUMMARY | 2024-01-05 09:45 | XMS_ITS | Encounter Summary ---
Author Organization [facility] Address [address] [place] [address] Care Team Providers Care Writer Name Role Phone Ailin Zavala MD Unavailable [phone] Martina Strickland PA-C Primary Care Provider Amadeo King MD Unavailable [phone] Joseph Trivedi MD Unavailable [phone] Rene Grant MD Unavailable [phone] Reason for Visit * Reason Comments Follow Up Epiretinal membrane Encounter Details Date Type Department Care Team (Late st Contact Info) Description 12/07/2023 3:10 PM CDT Office Visit [facility] Eye [place] 070106 [facility] 9[facility] Clin 9A [place] [address] Emma Deshpande MD [address] [place] [address] 911 [place] [address] Epiretinal membrane (ERM) of right eye Social History Tobacco Use Types Packs/Day Years [...] as of this encounter Progress Notes * Emma Deshpande MD - 12/07/2023 3:10 PM CDT CC - ERM INTERVAL HISTORY - had corneal infection OD since CHERYLE with me planned surgery per patient PMH - Paula Puga is a 58 year old female with 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 ERM OD - Unable to assess today due to corneal edema - mild on last OCT 11/2020 #. Syneresis OS - advised S/Sx RD 11/2023 #. H/o PPV OD - s/p PPV/PI/PP tube 09/30/18 for aqueous misdirection - reitna flat on U/S - gtts per Cornea/Glaucoma #. S/p multiple PKP OD/complex cornea history - see Dr. King notes - now severe K-edema s/p KLAL - h/o recent epi defect healing #. Mixed mechanism glaucoma right eye - s/p PP tube right eye on 09/30/18 - Followed with Amrit in past # NS OS - mild Return in about 1 year (around 12/06/2024) for DFE OU, OCT OU. ATTESTATION Attending Attestation: Complete documentation of historical and exam [...] and I examined the patient myself. I personally reviewed the relevant tests, images, and reports as documented above. I formulated and edited as necessary the assessment and plan and discussed the findings and management plan with the patient and family Emma Deshpande MD, PhD Special Effects Technician, Vitreoretinal Surgery Department of Ophthalmology [facility] documented in this encounter Plan of Treatment Upcoming Encounters Date Type Department Care Team (Late st Contact Info) Description 01/17/2024 3:00 PM CDT Office Visit [facility] Emergency Department 516 [facility] 9th [facility] 9A [place] [address] Amadeo King MD 420 [facility] 493 [place] [address] 12/05/2024 3:00 PM CDT Office Visit [facility] Emergency Department 516 [facility] 9th [facility] 9A [place] [address] Emma Deshpande MD 516 [facility] 911 [place] [address] documented as of this encounter Procedures Procedure Name Priority Date/Time Associated Diagnosis Comments OCT RETINA SPECTRALIS OU (BOTH EYE) Routine 12/07/2023 5:49 PM CDT Epiretinal membrane (ERM) of right eye documented in this encounter Results * OCT Retina Spectralis [...] Diagnoses Diagnosis Epiretinal membrane (ERM) of right eye documented in this encounter Care Teams Writer Relationship Specialty Start Date End Date Martina Strickland PA-C PCP - General Physician Patrol Deputy Sheriff 07/19/19 Ailin Zavala MD Internal Medicine 07/28/11 Amadeo King MD [address] [id number] Ophthalmology 12/22/19 Joseph Trivedi MD [facility] [address] [place] 215 [place], [place] [address] Rheumatology 05/21/20 Rene Grant MD 516 [place], [place] [address] Assigned Surgical Provider 09/12/22 documented as of this encounter
--- OUTSIDE RECORDS SUMMARY | 2024-01-05 09:45 | XMS_ITS | Encounter Summary ---
Author Organization [facility] Address [address] [place] [address] Care Team Providers Care Scoop Driver Name Role Phone Ailin Zavala MD Unavailable Martina Strickland PA-C Primary Care Provider Amadeo King MD Unavailable [phone] Joseph Trivedi MD Unavailable [phone] Rene Grant MD Unavailable [phone] Reason for Visit * Reason Comments Corneal Ulcer Follow Up Encounter Details Date Type Department Care Team (Late st Contact Info) Description 10/25/2023 3:00 PM CDT Office Visit [facility] Eye [facility] 516 [facility] 9th Fl Clin 9A [place] [address] Amadeo King MD 420 [facility] 493 [place] [address] 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 Marcus. 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 Deshpande. Interval Hx: 10/25/23 s/p KLAL/PKP/lens explantation/scleral fixated lens OD, and s/p conj chalasis excision 06/14/2019. Has been following with Dr. Grant recently due to corneal ulcer in the right eye. Referred back to evaluate possible need for repeat KLAL with PKP. Patient has been treated for apersistent epithelial defect. Patient continues to use BCL OD. No new flashes, floaters, diplopia. No pain, tearing, discharge. Persistent redness. 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 Trivedi ([facility]) JAMAL carballo DR -- was following at [facility] with Dr. Llamas h/o Aqueous Misdirection s/p [...] + PKP PLAN: - replace BCL OD 8.5 10/25/23 - continue PF AT Q1H right eye - Continue Prednisolone to TID right eye - to help re-epithelialization - Continue moxifloxacin to BID OD - continue tacrolimus to bedtime only while she is using RGP OD - s/p punctal plug RLL 08/23/23 - start restasis BID OD - discussed possible topical insulin - may be cost prohibitive - check CMP/CBC - had labs last [...] Yag Cap 05/2020 Follow up: 2 weeks w/ Vt after Punctal plug, sooner [...] encounter Nursing Notes * Tay Crawford - 10/25/2023 3:00 PM CDT Chief Complaints and History of Present Illnesses Patient presents with Corneal Ulcer Follow Up Chief Complaint(s) and History of Present Illness(es) Corneal Ulcer Follow Up Laterality: right eye Associated symptoms: dryness. Negative for eye pain, tearing, flashes, floaters, itching and burning Pain scale: 0/10 Comments Paula is here to continue care for corneal ulcer of right eye. Today she states no change noticed from last visit. Tay Ty COT 3:23 PM October 25, 2023 documented in this encounter Plan of Treatment Upcoming Encounters Date Type Department Care Team (Late st Contact Info) Description 01/17/2024 3:00 PM CDT Office Visit [facility] - [address] 9th Ut Clin 9A [place] [address] Amadeo King MD 420 [facility] 493 [place] [address] 12/05/2024 3:00 PM CDT Office Visit [facility] [place] 558536 [facility] 9th Ut Clin 9A [place] [address] Emma Deshpande MD 516 [facility] 911 [place] [address] documented as of this encounter Visit Diagnoses Diagnosis Persistent epithelial defect of right cornea- Primary Chronically dry eyes, right Post corneal transplant Cornea replaced by transplant Corneal ulcer of right eye Corneal ulcer, unspecified documented in this encounter Care Teams Scoop Driver Relationship Specialty Start Date End Date Martina Strickland PA-C PCP - General Physician Automotive Lot Attendant 07/19/19 Ailin Zavala MD Internal Medicine 07/28/11 Amadeo King MD 420 [facility] 493 [place] [address] Ophthalmology 12/22/19 Joseph Trivedi MD [facility] [address] [place] 215 [place], [place] [address] Rheumatology 05/21/20 Rene Grant MD 516 [place], [place] [phone] Assigned Surgical Provider 09/12/22 documented as of this encounter
--- OUTSIDE RECORDS SUMMARY | 2024-01-05 09:45 | XMS_ITS | Encounter Summary ---
Author Organization [facility] Address [address] [place] [address]. [place] [address] Care Team Providers Care Vending Service Technician Name Role Phone Ailin Zavala MD Unavailable [phone] Martina Strickland PA-C Primary Care Provider Amadeo King MD Unavailable [phone] Joseph Trivedi MD Unavailable [phone] Rene Grant MD Unavailable [phone] Encounter Details Date Type Department Care Team (Latest Contact Info) Description 12/06/2023 Travel Social History Tobacco Use Types Packs/Day [...] Description 01/17/2024 3:00 PM CDT Office Visit [facility] Eye [address] 9 [address] Clin 9A [place] [address] Amadeo King MD 420 [facility] 493 [place] [address] 12/05/2024 3:00 PM CDT Office Visit [facility] Eye [facility] 516 [facility] 9th Fl Clin 9A [place] [address] Emma Deshpande MD 516 [facility] [address] [place] [address] documented as of this encounter Visit Diagnoses Not on filedocumented in this encounter Care Teams Vending Service Technician Relationship Specialty Start Date End Date Martina Strickland PA-C PCP - General Physician Explosive Operator Bomb 07/19/19 Ailin Zavala MD Internal Medicine 07/28/11 Amadeo King MD [address] [place] [id number] Ophthalmology 12/22/19 Joseph Trivedi MD [facility] [address] [facility] 215 [place], [place] [address] Rheumatology 05/21/20 Rene Grant MD [address] [place] [address]305 Assigned Surgical Provider 09/12/22 documented as of this encounter
--- OUTSIDE RECORDS SUMMARY | 2024-01-05 09:45 | XMS_ITS | Encounter Summary ---
Author Organization [facility] Address [address] [place] [address]. [place] [address] Care Team Providers Care Pipe Cleaning Machine Operator Name Role Phone Ailin Zavala MD Unavailable [phone] Martina Strickland PA-C Primary Care Provider Amadeo King MD Unavailable [phone] Joseph Trivedi MD Unavailable [phone] Rene Grant MD Unavailable [phone] Encounter Details Date Type Department Care Team (Latest Contact Info) Description 12/19/2023 Travel Social History Tobacco Use Types Packs/Day [...] 01/17/2024 3:00 PM CDT Office Visit [facility] Eye [address] 9 Md Clin 9A [place] [address] Amadeo King MD 420 [facility] 493 [place] [address] 12/05/2024 3:00 PM CDT Office [facility] 516 [facility] 9th Fl Clin 9A [place] [address] Emma Deshpande MD 516 [facility] [address] [place] [address] documented as of this encounter Visit Diagnoses Not on filedocumented in this encounter Care Teams Pipe Cleaning Machine Operator Relationship Specialty Start Date End Date Martina Strickland PA-C PCP - General Physician Cleaner And Trimmer 07/19/19 Ailin Zavala MD Internal Medicine 07/28/11 Amadeo King MD [address] [place] [address] Ophthalmology 12/22/19 Joseph Trivedi MD [facility] [address] [facility] 215 [place], [place] [address] Rheumatology 05/21/20 Rene Grant MD [address] [place] [address] 007775 Assigned Surgical Provider 09/12/22 documented as of this encounter
--- OUTSIDE RECORDS SUMMARY | 2024-01-05 09:45 | XMS_ITS | Encounter Summary ---
Author Organization [place] Address [address] [place] [address] Care Team Providers Care Certified Physician'S Assistant Name Role Phone Ailin Zavala MD Unavailable [phone] Martina Strickland PA-C Primary Care Provider Amadeo King MD Unavailable [phone] Joseph Trivedi MD Unavailable [phone] Rene Grant MD Unavailable [phone] Reason for Visit * Reason Onset Date Comments Refill Request 12/14/2023 Encounter Details Date Type Department Care Team (Late st Contact Info) Description 12/14/2023 Refill [facility] Eye [facility] [address] [facility] Emergency Department 9th [facility] Clin 9A [place] [phone] Malorie Padron MD 420 [facility] 493 [place] [address] Refill Request Social History Tobacco Use Types Packs/Day Years [...] Description 01/17/2024 3:00 PM CDT Office Visit [facility] Emergency Department 9th [facility] 9A [place] [address] Amadeo King MD 420 [facility] 493 [place], [place] [address] 12/05/2024 3:00 PM CDT Office Visit [facility] [address] [facility] Emergency Department 9th [facility] 9A [place] [phone] Emma Deshpande MD 516 [facility] 911 [place], [place] [address] documented as of this encounter Visit Diagnoses 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
--- OUTSIDE RECORDS SUMMARY | 2024-01-05 09:45 | XMS_ITS | Encounter Summary ---
Author Organization [place] Address [address] [place] [address] Care Team Providers Care Distribution Engineering Technologist Name Role Phone Ailin Zavala MD Unavailable Martina Strickland PA-C Primary Care Provider Amadeo King MD Unavailable [phone] Amadeo King MD Unavailable [phone] Joseph Trivedi MD Unavailable Rene Grant MD Unavailable [phone] Amadeo Winston MD Unavailable Amadeo Winston MD Unavailable Rene Grant MD Unavailable Rene Grant MD Unavailable [phone] Reason for Visit * Reason Onset Date Comments Refill Request 06/22/2022 prednisoLONE dick benitez (PRED FORTE) 1 % ophthalmic suspension Encounter Details Date Type Department Care Team (Late st Contact Info) Description 06/22/2022 [facility] [address] 9 Nh Clin 9A [place] [phone] Rene Grant MD [address] [place] [address] Refill Request (prednisoLONE acetate (PRED FORTE) [...] Coronavirus/COVID-19? No / Unsure 06/03/2022 2:32 PM PRIMER INSERTING MACHINE ADJUSTER documented as of this encounter Miscellaneous Notes [...] to arrive. requests 10 ml 0 rfs. ER INSERTING MACHINE ADJUSTER * Telephone Encounter - Ashley Paula - 06/22/2022 1:03 PM CST [facility] Call Center Phone Message May a detailed message be left on voicemail: yes Reason for Call: Medication Refill Request Has the patient contacted the pharmacy for the refill? Yes Name of medication being requested: prednisoLONE acetate (PRED FORTE) 1 % ophthalmic suspension Provider who prescribed the medication: Dr. [facility] Date medication is needed: JOSE MANUEL Patient called stating she will not have this medication until the from her mail order pharmacy and she is out. She is asking for an emergency refill. Action Taken: Other: eye Travel Screening: Not Applicable ER INSERTING MACHINE ADJUSTER documented in this encounter Plan of Treatment Upcoming Encounters Date Type Department Care Team (Late st Contact Info) Description 01/17/2024 3:00 PM CDT Office Visit [facility] 516 [facility] 9th N[facility] Clin 9A [place] [address] Amadeo King MD 420 [facility] 493 [place] [address] 12/05/2024 3:00 PM CDT Office Visit [facility] 516 [facility] 9th N[facility] Clin 9A [place] [address] Emma Deshpande MD 516 [facility] 911 [place], [place] [address] documented as of this encounter Visit Diagnoses Diagnosis 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 documented in this encounter Care Teams Distribution Engineering Technologist Relationship Specialty Start Date End Date Martina Strickland PA-C PCP - General Physician Assembler Wire Group 07/19/19 Ailin Zavala MD Internal Medicine 07/28/11 Amadeo King MD [address] [place] [address] Ophthalmology 12/22/19 Amadeo King MD [address] [place] [address] 493 [place] [address] Assigned PCP 04/07/20 06/02/23 Joseph Trivedi MD [facility] [address] [place], [place] [address] Rheumatology 05/21/20 Rene Grant MD [address] [place] [address] Assigned Surgical Provider 04/04/22 08/21/22 Amadeo Winston MD [address] [place] [address] 114235 Assigned Surgical Provider 08/22/22 08/28/22 Amadeo Winston MD [address] [place] [address] Assigned Surgical Provider 09/05/22 09/11/22 Rene Grant MD [address] [place] [address]9999[address] Assigned Surgical Provider 08/29/22 09/04/22 Rene Grant MD [address] [place] [address] 566235 Assigned Surgical Provider 09/12/22 documented as of this encounter
--- OUTSIDE RECORDS SUMMARY | 2024-01-05 09:45 | XMS_ITS | Encounter Summary ---
Author Organization [place] Address [address] [place] [address] Care Team Providers Care Dealer Support Technician Name Role Phone Ailin Zavala MD Unavailable [phone] Martina Strickland PA-C Primary Care Provider Amadeo King MD Unavailable [phone] Joseph Trivedi MD Unavailable [phone] Rene Grant MD Unavailable [phone] Reason for Visit * Reason Comments Follow Up # s/p multiple PKP O D # s/p KLAL/PKP OD/IOL exchange right eye 04/18/2019# s/p conj chalasis excision nasally right eye 06/14/2019 Encounter Details Date Type Department Care Team (Late st Contact Info) Description 11/08/2023 3:00 PM CDT Office Visit [facility] Department 516 [facility] 9th In Clin 9A [place] [phone] Amadeo King MD 420 [facility] 493 [place] [address] Cydney Madrid MD 420 [place] [address] Post corneal transplant (Primary Dx); 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 Marcus. 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 Deshpande. Interval hx 11/08/2023 The eye feels great. Eye is always red, no photophobia. No discharge no floaters. Chief Complaint(s) and History of Present Illness(es) Follow Up Additional comments: # s/p multiple PKP OD # s/p KLAL/PKP OD/IOL exchange right eye 04/18/2019 # s/p conj chalasis excision nasally right eye 06/14/2019 Comments Pt denies changes in vision or comfort. 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 Trivedi (Rheum) JAMAL carballo DR -- was following at [facility] with Dr. Llamas h/o Aqueous Misdirection [...] PKP PLAN: - replace BCL OD 8.5 11/08/23 - continue PF AT Q1H right eye - Continue Prednisolone to TID right eye - to help re-epithelialization - Continue moxifloxacin to BID OD - continue tacrolimus to bedtime only while she is using RGP OD - s/p punctal plug RLL 08/23/23 - restasis BID OD - discussed possible topical insulin - may be cost prohibitive- no need at this point because epithelium healed - check CMP/CBC - had labs last [...] - S/p Yag Cap 05/2020 Follow up: 2-3 weeks, sooner if problems. Cydney Madrid MD Cornea and External Disease Fellow [facility] Attending Physician Attestation: Complete documentation of [...] management plan with the patient and family. -Cydney Madrid MD documented in this encounter Nursing Notes * Katerina Duong - 11/08/2023 3:00 PM CDT Chief Complaints and History of Present Illnesses Patient presents with Follow Up # s/p multiple PKP OD # s/p KLAL/PKP OD/IOL exchange right eye 04/18/2019 # s/p conj chalasis excision nasally right eye 06/14/2019 Chief Complaint(s) and History of Present Illness(es) Follow Up Comments: # s/p multiple PKP OD # s/p KLAL/PKP OD/IOL exchange right eye 04/18/2019 # s/p conj chalasis excision nasally right eye 06/14/2019 Comments Pt denies changes in vision or comfort. She is taking: Pred TID OD Moxifloxacin BID right eye Tacrolimus 0.1% QHS OD (due to contact lens use) PF AT Q1H Restasis BID She is not taking Sadia Latanoprost in the AM right eye Cellcept 500 BID She is not taking Brimonidine Katerina Duong OA 3:33 PM November 08, 2023 documented in this encounter Plan of Treatment Upcoming Encounters Date Type Department Care Team (Late st Contact Info) Description 01/17/2024 3:00 PM CDT Office Visit [facility] Eye [facility] 516 [facility] 9th In Clin 9A [place] [address] Amadeo King MD 420 [facility] 493 [place] [address] 12/05/2024 3:00 PM CDT Office Visit [facility] [place] [id number] [facility] 9th In Clin 9A [place] [address] Emma Deshpande MD 516 [facility] 911 [place], [place] [address] documented as of this encounter Visit Diagnoses Diagnosis 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
--- OUTSIDE RECORDS SUMMARY | 2024-01-05 09:45 | XMS_ITS | Encounter Summary ---
Author Organization [place] Address [address] [place] [address] Care Team Providers Care Tube Pusher Name Role Phone Ailin Zavaal MD Unavailable [phone] Martina Strickland PA-C Primary Care Provider Amadeo King MD Unavailable [phone] Joseph Trivedi MD Unavailable [phone] Rene Grant MD Unavailable [phone] Reason for Visit * Reason Onset Date Comments Refill Request 12/03/2023 prednisoLONE dick benitez (PRED FORTE) 1 % ophthalmic suspension Encounter Details Date Type Department Care Team (Late st Contact Info) Description 12/03/2023 Refill [facility] [address] 9 [facility] 9A [place] [phone] Rene Grant MD [address] [place] [phone] Refill Request (prednisoLONE acetate (PRED FORTE) 1 [...] Telephone Encounter - Jose Camara RN - 12/03/2023 5:33 PM CDT - Continue Prednisolone to TID right eye - to help re-epithelialization -- Above per last note 11-29-2023 Rx sent Jose Camara RN 5:33 PM 12/03/23 * Telephone Encounter - Kristyn Pastrana RN - 12/03/2023 4:40 PM CDT Medication Requested: prednisoLONE acetate (PRED FORTE) 1 % ophthalmic suspension 15 mL 11 02/19/2023 -- No Sig - Route: Place 1-2 drops into the right eye 4 times daily - Right Eye Last Office Visit : 11/29/2023 [facility] Future Office visit: 12/07/2023 3:10 PM (10 min) Siddhartha Arrive by: 2:55 PM [facility]) Emma Deshpande MD Per last visit note: Continue Prednisolone to TID right eye - to help re-epithelialization Routing refill request to provider for review/approval because: Last sig indicates QID, last note indicated TID. Pt requesting a temporary script for 5ml (waiting for mail order, will be without meds) 5ml pended with Sig/Instructions to be filled in. Needs approval from Resident/Fellow/Staff. Pt Call: Patient aware of end of day and typical turn around. She was wondering if a temporary script for 5 ml could be sent sooner as she states mail order takes atleast a week to send to her. If able to send a script for 5ml, please send to: [facility] #[id number] - [place], [place] - [address] AT [place] [address] & [facility] * Telephone Encounter - Daniella Jimenes - 12/03/2023 4:20 PM CDT [facility] Call Center Phone Message May a detailed message be left on voicemail: yes Reason for Call: Medication Refill Request Has the patient contacted the pharmacy for the refill? Yes Name of medication being requested: prednisoLONE acetate (PRED FORTE) 1 % ophthalmic suspension Provider who prescribed the medication: [facility] Pharmacy: [facility] - [address] Date medication is needed: JOSE MANUEL Patient aware of end of day and typical turn around. She was wondering if a temporary script for 5 ml could be sent sooner as she states mail order takes atleast a week to send to her. If able to send a script for 5ml, please send to: [facility] #[id number] - [place], [place] - [address] AT [place] [address] & [facility] Action Taken: Message routed to: [facility] Eye Travel Screening: Not Applicable documented in this encounter Plan of Treatment Upcoming Encounters Date Type Department Care Team (Late st Contact Info) Description 01/17/2024 3:00 PM CDT Office Visit [facility] [place] [id number] [facility] 9[facility] 9A [place] [phone] Amadeo King MD [address] [place] [address] 12/05/2024 3:00 PM CDT Office Visit [facility] [place] 248066 [facility] 9th [facility] 9A [place] [address] Emma Deshpande MD [address] [place] [address] 911 [place], [place] [address] documented as of this encounter Visit Diagnoses Diagnosis Post corneal transplant Cornea replaced by transplant Corneal transplant rejection, right eye documented in this encounter Care Teams Tube Pusher Relationship Specialty Start Date End Date Martina Strickland PA-C PCP - General Physician Table Cover Folder 07/19/19 Ailin Zavala MD Internal Medicine 07/28/11 Amadeo King MD [address] [place] [address] 493 [place], [place] [address] Ophthalmology 12/22/19 Joseph Trivedi MD [facility] [address] [facility] 215 [place], [place] [address] Rheumatology 05/21/20 Rene Grant MD 6 [place], [place] [address] Assigned Surgical Provider 09/12/22 documented as of this encounter
--- OUTSIDE RECORDS SUMMARY | 2024-01-05 09:45 | XMS_ITS | Encounter Summary ---
Author Organization [facility] Address [address] [place] [address]. [place] [address] Care Team Providers Care Aircraft Electronics Technical Officer Name Role Phone Ailin Zavala MD Unavailable [phone] Martina Strickland PA-C Primary Care Provider Amadeo King MD Unavailable [phone] Joseph Trivedi MD Unavailable [phone] Rene Grant MD Unavailable [phone] Encounter Details Date Type Department Care Team (Latest Contact Info) Description 11/28/2023 Travel Social History Tobacco Use Types Packs/Day [...] PM CDT Office Visit [facility] [address] 9 Mi Clin 9A [place] [address] Amadeo King MD 420 [facility] 493 [place] [address] 12/05/2024 3:00 PM CDT Office Visit [facility] 516 [facility] 9th Fl Clin 9A [place] [address] Emma Deshpande MD 516 [facility] [address] [place] [address] documented as of this encounter Visit Diagnoses Not on filedocumented in this encounter Care Teams Aircraft Electronics Technical Officer Relationship Specialty Start Date End Date Martina Strickland PA-C PCP - General Physician Counter Stitcher 07/19/19 Ailin Zavala MD Internal Medicine 07/28/11 Amadeo King MD [address] [place] [address]995 Ophthalmology 12/22/19 Joseph Trivedi MD [facility] [address] [facility] 215 [place], [place] [address] Rheumatology 05/21/20 Rene Grant MD [address] [place] [address] [id number] Assigned Surgical Provider 09/12/22 documented as of this encounter
--- OUTSIDE RECORDS SUMMARY | 2024-01-05 09:45 | XMS_ITS | Encounter Summary ---
Author Organization [place] Address [address] [place] [address]. [place] [address] Care Team Providers Care Energy Conservation Representative Name Role Phone Ailin Zavala MD Unavailable [phone] Martina Strickland PA-C Primary Care Provider Amadeo King MD Unavailable [phone] Joseph Trivedi MD Unavailable [phone] Rene Grant MD Unavailable [phone] Encounter Details Date Type Department Care Team (Latest Contact Info) Description 10/25/2023 Travel Social History Tobacco Use Types Packs/Day [...] Description 01/17/2024 3:00 PM CDT Office Visit [facility] [address] 9 Ok Clin 9A [place] [address] Amadeo King MD 420 [facility] 493 [place] [address] 12/05/2024 3:00 PM CDT Office Visit [facility] 516 [facility] 9th Fl Clin 9A [place] [address] Emma Deshpande MD 516 [facility] [address] [place] [address] documented as of this encounter Visit Diagnoses Not on filedocumented in this encounter Care Teams Energy Conservation Representative Relationship Specialty Start Date End Date Martina Strickland PA-C PCP - General Physician Operations Tech 07/19/19 Ailin Zavala MD Internal Medicine 07/28/11 Amadeo King MD [address] [place] [address] [phone] Ophthalmology 12/22/19 Joseph Trivedi MD [facility] [address] [facility] 215 [place], [place] [address] Rheumatology 05/21/20 Rene Grant MD [address] [place] [address] [phone] Assigned Surgical Provider 09/12/22 documented as of this encounter
--- OUTSIDE RECORDS SUMMARY | 2024-01-05 09:45 | XMS_ITS | Encounter Summary ---
Author Organization [place] Address [address] [place] [address] Care Team Providers Care Lamp Shades Supervisor Name Role Phone Ailin Zavala MD Unavailable [phone] Martina Strickland PA-C Primary Care Provider Amadeo King MD Unavailable [phone] Joseph Trivedi MD Unavailable [phone] Rene Grant MD Unavailable [phone] Reason for Visit * Reason Comments Follow Up Encounter Details Date Type Department Care Team (Late st Contact Info) Description 11/29/2023 2:15 PM CDT Office Visit [facility] [address] 9[facility] 9A [place] [phone] Rene Grant MD [address] [place] [address] 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 Marcus. 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 Deshpande. Interval hx 11/29/2023 Chief Complaint(s) and History of Present Illness(es) Follow Up In right eye. Associated symptoms include redness. Negative for dryness, eye pain, tearing and floaters. Pain was noted as 0/10. Comments Patient states has not noticed any difference with vision since the last visit. Taking Prednisolone TID right eye, Moxifloxacin BID right eye, Out of restasis, Latanoprost at bedtime right eye. 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 Trivedi ([facility]) DM s DR -- was following at [facility] with Dr. Llamas h/o Aqueous [...] PKP PLAN: - replace BCL OD 8.5 11/29/23 - continue PF AT Q1H right eye - Continue Prednisolone to TID right eye - to help re-epithelialization - Continue moxifloxacin to BID OD - continue tacrolimus to bedtime only while she is using RGP OD - s/p punctal plug RLL 08/23/23 - restasis BID OD -start topical insulin drops. Prescription sent - check CMP/CBC - had labs last [...] in this encounter Nursing Notes * Katerina Manning - 11/29/2023 2:15 PM CDT Chief Complaints and History of Present Illnesses Patient presents with Follow Up Chief Complaint(s) and History of Present Illness(es) Follow Up Laterality: right eye Associated symptoms: redness. Negative for dryness, eye pain, tearing and floaters Pain scale: 0/10 Comments Patient states has not noticed any difference with vision since the last visit. Taking Prednisolone TID right eye, Moxifloxacin BID right eye, Out of restasis, Latanoprost at bedtime right eye. Katerina Manning on 11/29/2023 at 2:25 PM documented in this encounter Plan of Treatment Upcoming Encounters Date Type Department Care Team (Late st Contact Info) Description 01/17/2024 3:00 PM CDT Office Visit [facility] - [address] 9[facility] 9A [place] [address] Amadeo King MD 420 [facility] 493 [place] [address] 12/05/2024 3:00 PM CDT Office Visit [facility] - [address] 9[facility] 9A [place] [address] Emma Deshpande MD 516 [facility] 911 [place], [place] 0[address] documented as of this encounter Visit Diagnoses Diagnosis 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- Primary Post corneal transplant Cornea replaced by transplant Persistent epithelial defect of right cornea documented in this encounter Care Teams Lamp Shades Supervisor Relationship Specialty Start Date End Date Martina Strickland PA-C PCP - General Physician Electrical Prospecting Supervisor 07/19/19 Ailin Zavala MD Internal Medicine 07/28/11 Amadeo King MD 420 [facility] 493 [place] [address] Ophthalmology 12/22/19 Joseph Trivedi MD [facility] [address] [phone] Rheumatology 05/21/20 Rene Grant MD 516 [place] [address] Assigned Surgical Provider 09/12/22 documented as of this encounter
--- OUTSIDE RECORDS SUMMARY | 2024-01-05 09:46 | XMS_ITS | Encounter Summary ---
Author Organization [place] Address [address] [place] [address] Care Team Providers Care Hot Kettle Tender Name Role Phone Ailin Zavala MD Unavailable [phone] Ailin Zavala MD Primary Care Provider Martina Strickland PA-C Primary Care Provider Amadeo King MD Unavailable + [phone] Claudia Marcus MD Unavailable [phone] Amadeo King MD Unavailable + [phone] Joseph Trivedi MD Unavailable [phone] Claudia Marcus MD Unavailable [phone] Emma Deshpande MD Unavailable + Kishan Spain OD Unavailable [phone] Emma Deshpande MD Unavailable +[phone] Kishan Spain OD Unavailable [phone] Emma Deshpande MD Unavailable + Rene Grant MD Unavailable [phone] Amadeo Winston MD Unavailable [phone] Amadeo Winston MD Unavailable + [phone] Rene Grant MD Unavailable Rene Grant MD Unavailable Encounter Details Date Type Department Care Team (Late Contact Info) Description 10/01/2018 Office Visit [place] [id number] [facility] 9[facility] 9A [place] [phone] Gonzalez Perry MD [facility] 8450 [place] [address] Aqueous misdirection, right - Right Eye (Primary [...] Description 01/17/2024 3:00 PM CDT Office Visit [address] 9[facility] 9A [place] [phone] Amadeo King MD 420 [facility] 493 [place], [place] [address] 12/05/2024 3:00 PM CDT Office Visit [place] 486846 [facility] 9A [place] [phone] Emma Deshpande MD 516 [facility] 911 [place], [place] 7[address] documented as of this encounter Visit Diagnoses Diagnosis Aqueous misdirection, 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 [address] [phone] Assigned Surgical Provider 03/01/20 05/25/20 Amadeo King MD [address] [place] [address] [phone] Assigned PCP 04/07/20 06/02/23 Joseph Trivedi MD [facility] [address] [place] [address] [address] [place] [phone] Rheumatology 05/21/20 Claudia Marcus MD [facility] [address] [address] Assigned Surgical Provider 06/30/20 10/19/20 Emma Deshpande MD [address] [place] [address] Assigned Surgical Provider 05/26/20 06/29/20 Kishan Spain, OD [address] [place] [phone] Assigned Surgical Provider 10/20/20 11/23/20 Emma Deshpande MD [address] [place] [address] Assigned Surgical Provider 11/24/20 12/07/20 Kishan Spain, OD [address] [place] [phone] Assigned Surgical Provider 12/08/20 03/27/22 Emma Deshpande MD [address] [place] [address] 165975 Assigned Surgical Provider 03/28/22 04/03/22 Rene Grant MD [address] [place] [address] 179755 Assigned Surgical Provider 04/04/22 08/21/22 Amadeo Winston MD [address] [place] [address] Assigned Surgical Provider 08/22/22 08/28/22 Amadeo Winston MD [address] [place] [address] 017835 Assigned Surgical Provider 09/05/22 09/11/22 Rene Grant MD [address] [place] [address] 934305 Assigned Surgical Provider 08/29/22 09/04/22 Rene Grant MD 6 [place], [place] [phone] Assigned Surgical Provider 09/12/22 documented as of this encounter
--- OUTSIDE RECORDS SUMMARY | 2024-01-05 09:46 | XMS_ITS | Encounter Summary ---
Author Organization [place] Address [address] [place] [address] Care Team Providers Care Fork Truck Driver Name Role Phone Ailin Zavala MD Unavailable [phone] Ailin Zavala MD Primary Care Provider Martina [...] Department Care Team (Late Contact Info) Description 09/12/2018 Telephone [facility] [place] [id number] [facility]th [facility] 9A [place] [phone] None Referral Social History Tobacco Use Types [...] Demi Judge - 09/12/2018 8:20 AM CDT [facility] Call Center Phone Message May a detailed message be left on voicemail: yes Reason for Call: Other: 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 Lesa Llamas at [facility]. To be seen within the week and a corneal visitfor next week. Call to schedule, faxing notes Action Taken: Message routed to: [facility] documented in this encounter Plan of Treatment Upcoming Encounters Date Type Department Care Team (Late st Contact Info) Description 01/17/2024 3:00 PM CDT Office Visit [facility] [place] [address] 9th [facility] 9A [place] [phone] Amadeo King MD [address] [place] [address] 12/05/2024 3:00 PM CDT Office Visit [facility] [place] 501586 [facility] 9th Fl Clin 9A [place] [address] Emma Deshpande MD 516 [facility] 911 [place], [place] 7569[address] documented as of this encounter Visit Diagnoses Not on filedocumented in this encounter Care Teams Fork Truck Driver Relationship Specialty Start Date End Date Ailin Zavala MD PCP - General Internal Medicine 07/28/11 07/18/19 Martina Strickland PA-C PCP - General Physician Hand Splitter 07/19/19 Ailin Zavala MD Internal Medicine 07/28/11 Amadeo King MD 420 [facility] 493 [place], [place] 8[address] Ophthalmology 12/22/19 Claudia Marcus MD [facility] [address] [place] [address] Assigned Surgical Provider 03/01/20 05/25/20 Amadeo King MD 420 [facility] 493 [place], [place] 513865 Assigned PCP 04/07/20 06/02/23 Joseph Trivedi MD [facility] [address] [facility] 215 [place] [address] Rheumatology 05/21/20 Claudia Marcus MD [facility] [address] [place] [phone] Assigned Surgical Provider 06/30/20 10/19/20 Emma Deshpande MD [address] [place] [address] [phone] Assigned Surgical Provider 05/26/20 06/29/20 Kishan Spain, OD [address] [place] [address] Assigned Surgical Provider 10/20/20 11/23/20 Emma Deshpande MD [address] [place] [address] 480525 Assigned Surgical Provider 11/24/20 12/07/20 Kishan Spain, OD [address] [place] [phone] Assigned Surgical Provider 12/08/20 03/27/22 Emma Deshpande MD [address] [place] [address] 176655 Assigned Surgical Provider 03/28/22 04/03/22 Rene Grant MD [address] [place] [address] [phone] Assigned Surgical Provider 04/04/22 08/21/22 Amadeo Winston MD [address] [place] [address] Assigned Surgical Provider 08/22/22 08/28/22 Amadeo Winston MD [address] [place] [address] Assigned Surgical Provider 09/05/22 09/11/22 Rene Grant MD [address] [place] [address] Assigned Surgical Provider 08/29/22 09/04/22 Rene Grant MD [address] [place] [address] [phone] Assigned Surgical Provider 09/12/22 documented as of this encounter
--- OUTSIDE RECORDS SUMMARY | 2024-01-05 09:46 | XMS_ITS | Encounter Summary ---
Author Organization [place] Address [address] [place] [address] Care Team Providers Care Transmission Tester Name Role Phone Ailin Zavala MD Unavailable [phone] Ailin Zavala MD Primary Care Provider Martina [...] (Late st Contact Info) Description 04/25/[address] [facility] 516 [facility] Al Clin 9A [place] [phone] Candy Jett, DO 909 [place] [address] Prior Auth - Medication (CYCLOSPORINE 1% in [...] managed by the clinic staff and provider. R MARKETER * Telephone Encounter - Amarilys Roberts - 05/18/2019 1:36 PM CST Insurance called for additional information. Answered and should receive an outcome by 05/19/18. Case# [id number] R MARKETER * Telephone Encounter - Amarilys Roberts - 05/16/2019 1:19 PM CST Images from the original note were not included. Received addition form to fill out. Completed and faxed back with all original requests. R MARKETER * Telephone Encounter - Amarilys Roberts - [...] suggest to re-fax to a different # [phone] (Benefit Coverage Review). According to the rep, the case has not been touched since the denial 05/08/19. Case # [id number].Re- faxed appeal again marked urgent. R MARKETER * Telephone Encounter - Amarilys Roberts - 05/12/2019 12:22 PM CST Medication Appeal Initiation We have initiated an appeal for the requested medication: Medication: CYCLOSPORINE 1% in artificial tears- APPEAL Pending Appeal Start Date: 05/12/2019 Insurance Company: [employer] - Comments: Appeal letter faxed to [employer] [phone]. . R MARKETER * Telephone Encounter - Amarilys Roberts - 05/08/2019 12:43 PM CST Images from the original note were not included. PRIOR AUTHORIZATION DENIED Medication: CYCLOSPORINE 1% in artificial tears- DENIED Denial Date: 05/08/2019 Denial Rational: Appeal Information: R MARKETER * Telephone Encounter - Amarilys Roberts - 05/04/2019 11:24 AM CST Images from the original note were not included. Received message from insurance to have pharmacy run the main ingredient. Per pharmacy, previous NDC has been discontinued, therefore new NDC is requested to be covered. New NDC [address]-91. Old NDC [id number]. Called insurance to have new NDC put on formulary. Refaxed request back stating this. Rep was just going to fax over a new PA form, but we had already fax one in, just refaxing with new information. R MARKETER * Telephone Encounter - Vesna Baca - 05/04/2019 10:59 AM CST Rec'd a call from Armanod @ [facility] pharmacy inquiring on status of P/A. Advised of the below. R MARKETER * Telephone Encounter - Amarilys Roberts - 05/02/2019 11:28 AM CST Manually faxed PA request to [facility]. R MARKETER * Telephone Encounter - Amarilys Roberts - 04/25/2019 3:41 PM CST Images from the original note were not included. Central Prior Authorization Team PA Initiation Medication: CYCLOSPORINE 1% in artificial tears Insurance Company: [employer] - Pharmacy Filling the Rx: [id number] - [place], [place] - [address] [facility] [address] Filling Pharmacy Filling Pharmacy Fax: Start Date: 04/25/2019 R MARKETER * Telephone Encounter - Martina Marcano - 04/25/2019 2:56 PM CST Images from the original note were not included. Medication is documented in the After Visit Summary under the media tab. R MARKETER documented in this encounter Plan of Treatment Upcoming Encounters Date Type Department Care Team (Late st Contact Info) Description 01/17/2024 3:00 PM CDT Office Visit [facility] [place] [address] [facility] 9[facility] 9A [place] [address] Amadeo King MD 420 [facility] 493 [place], [place] [address] 12/05/2024 3:00 PM CDT Office Visit [facility] - [address] 9[facility] 9A [place] [address] Emma Deshpande MD [address] [place] [address] 911 [place], [place] [address] documented as of this encounter Visit Diagnoses Not on filedocumented in this encounter Care Teams Transmission Tester Relationship Specialty Start Date End Date Ailin Zavala MD PCP - General Internal Medicine 07/28/11 07/18/19 Martina Strickland PA-C PCP - General Physician Buffing And Polishing Wheel Repairer 07/19/19 Ailin Zavala MD Internal Medicine 07/28/11 Amadeo King MD [address] [place] [address] 493 [place], [place] [address] Ophthalmology 12/22/19 Claudia Marcus MD [facility] [address] [place] [phone] Assigned Surgical Provider 03/01/20 05/25/20 Amadeo King MD 420 [facility] 493 [place], [place] [phone] Assigned PCP 04/07/20 06/02/23 Joseph Trivedi MD [facility] [address] [facility] [address] [place] [address] Rheumatology 05/21/20 Claudia Marcus MD [facility] [address] [place] [phone] Assigned Surgical Provider 06/30/20 10/19/20 Emma Deshpande MD [address] [place] [address] 911 [place] [address] Assigned Surgical Provider 05/26/20 06/29/20 Kishan Spain, ANDI [address] [place] [phone] Assigned Surgical Provider 10/20/20 11/23/20 Emma Deshpande MD 6 [facility] 911 [place], [place] [phone] Assigned Surgical Provider 11/24/20 12/07/20 Kishan Spain, OD [address] [place] [phone] Assigned Surgical Provider 12/08/20 03/27/22 Emma Deshpande MD [address] [place] [address] 911 [place] [address] Assigned Surgical Provider 03/28/22 04/03/22 Rene Grant MD [address] [place] [address] Assigned Surgical Provider 04/04/22 08/21/22 Amadeo Winston MD [address] [place] [address] Assigned Surgical Provider 08/22/22 08/28/22 Amadeo Winston MD [address] [place] [address] Assigned Surgical Provider 09/05/22 09/11/22 Rene Grant MD [address] [place] [address] Assigned Surgical Provider 08/29/22 09/04/22 Rene Grant MD [address] [place] [address] Assigned Surgical Provider 09/12/22 documented as of this encounter
--- OUTSIDE RECORDS SUMMARY | 2024-01-05 09:46 | XMS_ITS | Encounter Summary ---
Author Organization [place] Address [address] [place] [address] Care Team Providers Care Field Manager Name Role Phone Ailin Zavala MD Unavailable [phone] Martina Strickland PA-C Primary Care Provider Amadeo King MD Unavailable + [phone] Claudia Marcus MD Unavailable [phone] Amadeo King MD Unavailable [phone] Joseph Trivedi MD Unavailable [phone] Claudia Marcus MD Unavailable [phone] Emma Deshpande MD Unavailable + [phone] Kishan Spain OD Unavailable [phone] Emma Deshpande MD Unavailable [phone] Kishan Spain OD Unavailable [phone] Emma Deshpande MD Unavailable + [phone] [...] Team (Late Contact Info) Description 11/27/2019 Telephone [facility] 516 [facility] 9th Fl Clin 9A [place] [phone] Amadeo King MD 420 [facility] 493 [place], [place] [address] Appointment (Appt with Dr King) Social History [...] Tania Marin - 11/27/2019 8:58 AM CDT [facility] Call Center Phone Message May a [...] Department Care Team (Late Contact Info) Description 01/17/2024 3:00 PM CDT Office Visit [facility] - [facility] [address] 9th Fl Clin 9A [place] [phone] Amadeo King MD 420 [facility] 493 [place] [address] 12/05/2024 3:00 PM CDT Office Visit [facility] [address] 9th Fl Clin 9A [place] [phone] Emma Deshpande MD 516 [facility] 911 [place], [place] [address] documented as of this encounter Visit Diagnoses Not on filedocumented in this encounter Care Teams Field Manager Relationship Specialty Start Date End Date Martina Strickland PA-C PCP - General Physician Pipeliner 07/19/19 Ailin Zavala MD Internal Medicine 07/28/11 Amadeo King MD [address] [place] [address] Ophthalmology 12/22/19 Claudia Marcus MD [facility] EYE [facility] [address] [place] [phone] Assigned Surgical Provider 03/01/20 05/25/20 Amadeo King MD [address] [place] [address] 493 [place] [address] Assigned PCP 04/07/20 06/02/23 Joseph Trivedi MD [facility] [address] [facility] 215 [place] [address] Rheumatology 05/21/20 Claudai Marcus MD [facility] EYE [facility] [address] [place] [phone] Assigned Surgical Provider 06/30/20 10/19/20 Emma Deshpande MD [address] [place] [address] [phone] Assigned Surgical Provider 05/26/20 06/29/20 Kishan Spain, OD [address] [place] [phone] Assigned Surgical Provider 10/20/20 11/23/20 Emma Deshpande MD [address] [place] [address] Assigned Surgical Provider 11/24/20 12/07/20 Kishan Spain, OD [address] [place] [address] [phone] Assigned Surgical Provider 12/08/20 03/27/22 Emma Deshpande MD [address] [place] [address] [phone] Assigned Surgical Provider 03/28/22 04/03/22 Rene Grant MD [address] [place] [address] [place] [address] Assigned Surgical Provider 04/04/22 08/21/22 Amadeo Winston MD [address] [place] [address] Assigned Surgical Provider 08/22/22 08/28/22 Amadeo Winston MD [address] [place] [address] Assigned Surgical Provider 09/05/22 09/11/22 Rene Grant MD [address] [place] [address]24 Assigned Surgical Provider 08/29/22 09/04/22 Rene Grant MD [address] [place] [address] 57[address] Assigned Surgical Provider 09/12/22 documented as of this encounter
--- OUTSIDE RECORDS SUMMARY | 2024-01-05 09:46 | XMS_ITS | Encounter Summary ---
Author Organization [place] Address [address] [place] [address] 42983 Care Team Providers Care Patcher Bowling Ball Name Role Phone Ailin Zavala MD Unavailable [phone] Martina Strickland PA-C Primary Care Provider Amadeo King MD Unavailable + [phone] Claudia Marcus MD Unavailable [phone] Amadeo King MD Unavailable [phone] Joseph Trivedi MD Unavailable [phone] Claudia Marcus MD Unavailable [phone] [...] for return to work send back in [employer] Please Encounter Details Date Type Department Care Team ([facility] st Contact Info) Description 07/25/2019 Telephone [facility] Emergency Department [address] [facility] 9th Fl Clin 9A [place] [phone] Amadeo King MD 420 [facility] 493 [place] [address] Patient Request for Note/Letter (Pt needs the Exact date for return to work send back in [employer] Please) Social History Tobacco Use Types Packs/Day [...] Grace Potter - 07/25/2019 4:18 PM CDT [facility] Phone Message May a detailed message be left on voicemail: yes Reason for Call: Form or Letter Type or form/letter needing completion:Pt needs he exact date to retrun back to work Please send back in [employer] Provider: Dr King Date form needed: JOSE MANUEL Once completed: Send back in [employer] Action Taken: Message routed to: [facility] eye Travel Screening: Not Applicable documented in this encounter Plan of Treatment Upcoming Encounters Date Type Department Care Team (Late st Contact Info) Description 01/17/2024 3:00 PM CDT Office Visit [facility] Eye [facility] Emergency Department [address] [facility] 9th Fl Clin 9A [place] [phone] Amadeo King MD 420 [facility] 493 [place], [place] [address] 12/05/2024 3:00 PM CDT Office Visit [facility] Eye [facility] Emergency Department [address] 9th Fl Clin 9A [place] [phone] Emma Deshpande MD 516 [facility] 911 [place], [place] [address] documented as of this encounter Visit Diagnoses Not on filedocumented in this encounter Care Teams Patcher Bowling Ball Relationship Specialty Start Date End Date Martina Strickland PA-C PCP - General Physician Unattended Ground Sensor Specialist 07/19/19 Ailin Zavala MD Internal Medicine 07/28/11 Amadeo King MD [address] [place] [address] 493 [place], [place] 140255 Ophthalmology 12/22/19 Claudia Marcus MD [facility] [address] [place] [phone] Assigned Surgical Provider 03/01/20 05/25/20 Amadeo King MD [address] [place] [address] 493 [place] [address] Assigned PCP 04/07/20 06/02/23 Joseph Trivedi MD [facility] [address] [facility] 215 [place] [address] Rheumatology 05/21/20 Claudia Marcus MD [facility] [address] [place] [phone] Assigned Surgical Provider 06/30/20 10/19/20 Emma Deshpande MD [address] [place] [address] Assigned Surgical Provider 05/26/20 06/29/20 Kishan Spain, OD [address] [place] [phone] Assigned Surgical Provider 10/20/20 11/23/20 Emma Deshpande MD [address] [place] [address] 916485 Assigned Surgical Provider 11/24/20 12/07/20 Kishan Spain, OD [address] [place] [phone] Assigned Surgical Provider 12/08/20 03/27/22 Emma Deshpande MD [address] [place] [address] 201435 Assigned Surgical Provider 03/28/22 04/03/22 Rene Grant MD [address] [place] [address] 61761 Assigned Surgical Provider 04/04/22 08/21/22 Amadeo Winston MD [address] [place] [address] 144085 Assigned Surgical Provider 08/22/22 08/28/22 Amadeo Winston MD [address] [place] [address] [phone] Assigned Surgical Provider 09/05/22 09/11/22 Rene Grant MD [address] [place] [address] [phone] Assigned Surgical Provider 08/29/22 09/04/22 Rene Grant MD [address] [place] [address] [phone] Assigned Surgical Provider 09/12/22 documented as of this encounter
--- OUTSIDE RECORDS SUMMARY | 2024-01-05 09:46 | XMS_ITS | Encounter Summary ---
Author Organization [place] Address [address] [place] [address] Care Team Providers Care Clinical Laboratory Medical Director Name Role Phone Ailin Zavala MD Unavailable [phone] Martina Strickland PA-C Primary Care Provider Amadeo King MD Unavailable + [phone] Claudia Marcus MD Unavailable [phone] Amadeo King MD Unavailable [phone] Joseph Trivedi MD Unavailable [phone] Claudia Marcus MD Unavailable [phone] [...] Encounter Details Date Type Department Care Team ([facility] Contact Info) Description 01/22/[address] [facility] [place] 752326 [facility] 9th Ri Clin 9A [place] [phone] Amadeo King MD [address] [phone] Medication Question Social History Tobacco Use Types [...] Robin Luu - 01/22/2020 1:39 PM CDT [facility] Call Center Phone Message May a detailed message be left on voicemail: yes Reason for Call: Medication Question or concern regarding medication Prescription Clarification Name of Medication: cyclosporine, combigan, prednisone eye drop Prescribing Provider: SCARLETT Pharmacy: [id number] [address] [facility] [address] And [facility] What on the order needs clarification? Pt is running low. Cyclosporine should be sent to [facility] pharmacy. The other two rx should go to pharmacy above. Action Taken: Other: eye Travel Screening: Not Applicable documented in this encounter Plan of Treatment Upcoming Encounters Date Type Department Care Team ([facility] Contact Info) Description 01/17/2024 3:00 PM CDT Office Visit [facility] [address] 9[facility] Clin 9A [place] [phone] Amadeo King MD [address] [address] 12/05/2024 3:00 PM CDT Office Visit [facility] Eye [facility] 516 [facility] 9 Fl Clin 9A [place] [phone] Emma Deshpande MD 516 [facility] 911 [place], [place] 8[address] documented as of this encounter Visit Diagnoses Not on filedocumented in this encounter Care Teams Clinical Laboratory Medical Director Relationship Specialty Start Date End Date Martina Strickland PA-C PCP - General Physician Statistical Clerk Advertising 07/19/19 Ailin Zavala MD Internal Medicine 07/28/11 Amadeo King MD [address] [place] [address] Ophthalmology 12/22/19 Claudia Marcus MD [facility] [address] [place] [address] Assigned Surgical Provider 03/01/20 05/25/20 Amadeo King MD [address] [place] [address]906 Assigned PCP 04/07/20 06/02/23 Joseph Trivedi MD [facility] [address] [place] [address] Rheumatology 05/21/20 Claudia Marcus MD [facility] [address] [place] [address] Assigned Surgical Provider 06/30/20 10/19/20 Emma Deshpande MD [address] [place] [address] [phone] Assigned Surgical Provider 05/26/20 06/29/20 Kishan Spain, OD [address] [place] [address] [phone] Assigned Surgical Provider 10/20/20 11/23/20 Emma Deshpande MD [address] [place] [address] 896805 Assigned Surgical Provider 11/24/20 12/07/20 Kishan Spain, OD [address] [place] [address] [phone] Assigned Surgical Provider 12/08/20 03/27/22 Emma Deshpande MD [address] [place] [address] 404205 Assigned Surgical Provider 03/28/22 04/03/22 Rene Grant MD [address] [place] [address] [phone] Assigned Surgical Provider 04/04/22 08/21/22 Amadeo Winston MD [address] [place] [address] 632225 Assigned Surgical Provider 08/22/22 08/28/22 Amadeo Winston MD [address] [place] [address] [phone] Assigned Surgical Provider 09/05/22 09/11/22 Rene Grant MD [address] [place] [address] 936105 Assigned Surgical Provider 08/29/22 09/04/22 Rene Grant MD [address] [place] [address] [phone] Assigned Surgical Provider 09/12/22 documented as of this encounter
--- OUTSIDE RECORDS SUMMARY | 2024-01-05 09:46 | XMS_ITS | Encounter Summary ---
Author Organization [place] Address [address] [place] [address] 63338 Care Team Providers Care Optical Glass Silverer Name Role Phone Ailin Zavala MD Unavailable [phone] Martina Strickland PA-C Primary Care Provider Amadeo King MD Unavailable + [phone] Claudia Marcus MD Unavailable [phone] Amadeo King MD Unavailable [phone] Joseph Trivedi MD Unavailable [phone] Claudia Marcus MD Unavailable [phone] [...] (Late st Contact Info) Description 10/09/2019 Telephone [facility] [address] [facility] [address] 4th [place] [address] Amadeo King MD 420 [facility] 493 [place] [address] Call Back (Appt tm at 11:30 ) [...] Santino Leon - 10/09/2019 2:21 PM CDT [facility] Call Center Phone Message May a [...] Pt's already got the time approved byhis mckeons to bring the pt in at 7:30. [...] Description 01/17/2024 3:00 PM CDT Office Visit [facility] 516 [facility] 9th Sc Clin 9A [place] [phone] Amadeo King MD 420 [facility] 493 [place], [place] [address] 12/05/2024 3:00 PM CDT Office Visit [facility] 516 [facility] 9th Sc Clin 9A [place] [phone] Emma Deshpande MD 516 [facility] [address] 911 [place], [place] [address] documented as of this encounter Visit Diagnoses Not on filedocumented in this encounter Care Teams Optical Glass Silverer Relationship Specialty Start Date End Date Martina [place] PA-C PCP - General Physician Fish Conservationist 07/19/19 Ailin Zavala MD Internal Medicine 07/28/11 Amadeo King MD [address] [place] [address] Ophthalmology 12/22/19 Claudia Marcus MD [facility] [address] [place] [address] Assigned Surgical Provider 03/01/20 05/25/20 Amadeo King MD [address] [place] [address] 493 [place] [address] Assigned PCP 04/07/20 06/02/23 Joseph Trivedi MD [facility] [address] [facility] 215 [place] [address] Rheumatology 05/21/20 Claudia Marcus MD [facility] [address] [place] [phone] Assigned Surgical Provider 06/30/20 10/19/20 Emma Deshpande MD [address] [place] [address] [phone] Assigned Surgical Provider 05/26/20 06/29/20 Kishan Spain, OD 909 [facility] 4th [place] [address] Assigned Surgical Provider 10/20/20 11/23/20 Emma Deshpande MD [address] [place] [address] [phone] Assigned Surgical Provider 11/24/20 12/07/20 Kishan Spain, OD 909 [facility] 4th [place] [address] Assigned Surgical Provider 12/08/20 03/27/22 Emma Deshpande MD [address] [place] [address] [phone] Assigned Surgical Provider 03/28/22 04/03/22 Rene Grant MD [address] [place] [address] 61255 Assigned Surgical Provider 04/04/22 08/21/22 Amadeo Winston MD [address] [place] [address] 95373 Assigned Surgical Provider 08/22/22 08/28/22 Amadeo Winston MD [address] [place] [address] 39174 Assigned Surgical Provider 09/05/22 09/11/22 Rene Grant MD [address] [place] [address] 86677 Assigned Surgical Provider 08/29/22 09/04/22 Rene Grant MD [address] [place] [address] 19940 Assigned Surgical Provider 09/12/22 documented as of this encounter
--- OUTSIDE RECORDS SUMMARY | 2024-01-05 09:46 | XMS_ITS | Encounter Summary ---
Author Organization [place] Address [address] [place] [address] 14038 Care Team Providers Care Software Requirements Engineer Name Role Phone Ailin Zavala MD Unavailable [phone] Ailin Zavala MD Primary Care Provider Martina [...] Grant MD Unavailable Rene Grant MD Unavailable Reason for Visit * Reason Onset Date Comments Call Back 03/27/2019 recovery time fo r upcoming surgery Encounter Details Date Type Department Care Team (Late st Contact Info) Description 03/27/2019 Telephone [facility] Eye [facility] [place] 546856 [facility] 9th Ga Clin 9A [place] [address] Amadeo King MD [address] [address] Call Back (recovery time for upcoming surgery) [...] Chayo Robbins - 03/27/2019 3:58 PM CST [facility] Phone Message May a detailed message be left on voicemail: yes Reason for Call: Other: Paula calling to find out what the recovery time is going to be after her surgery. She is needing this information for her work. Please call her back to discuss Action Taken: Message routed to: [facility] Eye CH REBUILDER documented in this encounter Plan of Treatment Upcoming Encounters Date Type Department Care Team (Late st Contact Info) Description 01/17/2024 3:00 PM CDT Office Visit [facility] [place] 546856 [facility] 9[facility] Clin 9A [place] [address] Amadeo King MD [address] [place] [address] 12/05/2024 3:00 PM CDT Office Visit [facility] Eye [facility] 516 [facility] 9th Fl Clin 9A [place] [address] Emma Deshpande MD 516 [facility] [address] 911 [place], [place] 608685 documented as of this encounter Visit Diagnoses Not on filedocumented in this encounter Care Teams Software Requirements Engineer Relationship Specialty Start Date End Date Ailin Zavala MD PCP - General Internal Medicine 07/28/11 07/18/19 Martina Strickland PA-C PCP - General Physician Supervising Architect 07/19/19 Ailin Zavala MD Internal Medicine 07/28/11 Amadeo King MD [address] [place] [address] Ophthalmology 12/22/19 Claudia Marcus MD [facility] [address] [place] [address] Assigned Surgical Provider 03/01/20 05/25/20 Amadeo King MD [address] [place] [address] 80213 Assigned PCP 04/07/20 06/02/23 Joseph Trivedi MD [facility] [address] [email or web address] 215 [place] [phone] Rheumatology 05/21/20 Claudia Marcus MD [facility] [address] [place] [phone] Assigned Surgical Provider 06/30/20 10/19/20 Emma Deshpande MD [address] [place] [address] 494575 Assigned Surgical Provider 05/26/20 06/29/20 Kishan Spain, OD [address] [place] [address] [phone] Assigned Surgical Provider 10/20/20 11/23/20 Emma Deshpande MD [address] [place] [address] 015305 Assigned Surgical Provider 11/24/20 12/07/20 Kishan Spain, OD [address] [place] [address] [phone] Assigned Surgical Provider 12/08/20 03/27/22 Emma Deshpande MD [address] [place] [address] 085135 Assigned Surgical Provider 03/28/22 04/03/22 Rene Grant MD [address] [place] [address] 82297 Assigned Surgical Provider 04/04/22 08/21/22 Amadeo Winston MD [address] [place] [address] 43928 Assigned Surgical Provider 08/22/22 08/28/22 Amadeo Winston MD [address] [place] [address] 74364 Assigned Surgical Provider 09/05/22 09/11/22 Rene Grant MD [address] [place] [address] 89072 Assigned Surgical Provider 08/29/22 09/04/22 Rene Grant MD [address] [place] [address] 04790 Assigned Surgical Provider 09/12/22 documented as of this encounter
--- OUTSIDE RECORDS SUMMARY | 2024-01-05 09:46 | XMS_ITS | Encounter Summary ---
Author Organization [place] Address [address] [place] [address] 28887 Care Team Providers Care Electronics Assembler Name Role Phone Ailin Zavala MD Unavailable [phone] Ailin Zavala MD Primary Care Provider Martina [...] (Late Contact Info) Description 11/18/[address] 9[address] [place] [address] Hailee Stone MD Social History Tobacco Use [...] Description 01/17/2024 3:00 PM CDT Office Visit [address] 9[facility] 9A [place] [address] Amadeo King MD [address] [place] [address] [facility] 493 [place] [address] 12/05/2024 3:00 PM CDT Office Visit [address] 9[facility] 9A [place] [address] Emma Deshpande MD 6 [facility] [address] 911 [place], [place] 923965 documented as of this encounter Visit Diagnoses Not on filedocumented in this encounter Care Teams Electronics Assembler Relationship Specialty Start Date End Date Ailin Zavala MD PCP - General Internal Medicine 07/28/11 07/18/19 Martina Strickland PA-C PCP - General Physician Manager Developmental 07/19/19 Ailin Zavala MD Internal Medicine 07/28/11 Amadeo King MD 420 [facility] 493 [place], [place] 219735 Ophthalmology 12/22/19 Claudia Marcus MD [facility] EYE [facility] [address] [place] [phone] Assigned Surgical Provider 03/01/20 05/25/20 Amadeo King MD 420 [facility] 493 [place], [place] 171575 Assigned PCP 04/07/20 06/02/23 Joseph Trivedi MD [facility] [address] [facility] [facility] 215 [place], [place] 738945 Rheumatology 05/21/20 Claudia Marcus MD [facility] EYE [facility] [address] [place] [address] Assigned Surgical Provider 06/30/20 10/19/20 Emma Deshpande MD 516 [facility] 911 [place], [place] 44346455 Assigned Surgical Provider 05/26/20 06/29/20 Kishan Spain, OD [address] [phone] Assigned Surgical Provider 10/20/20 11/23/20 Emma Deshpande MD [address] [place] [address] 41305 Assigned Surgical Provider 11/24/20 12/07/20 Kishan Spain, OD [address] [place] [address] [phone] Assigned Surgical Provider 12/08/20 03/27/22 Emma Deshpande MD [address] [place] [address] 28960 Assigned Surgical Provider 03/28/22 04/03/22 Rene Grant MD [address] [place] [address] 78667 Assigned Surgical Provider 04/04/22 08/21/22 Amadeo Winston MD [address] [place] [address] 81516 Assigned Surgical Provider 08/22/22 08/28/22 Amadeo Winston MD [address] [place] [address] 34238 Assigned Surgical Provider 09/05/22 09/11/22 Rene Grant MD [address] [place] [address] 16680 Assigned Surgical Provider 08/29/22 09/04/22 Rene Grant MD [address] [place] [address] 15810 Assigned Surgical Provider 09/12/22 documented as of this encounter
--- OUTSIDE RECORDS SUMMARY | 2024-01-05 09:46 | XMS_ITS | Encounter Summary ---
Author Organization [place] Address [address] [place] [address] 27464 Care Team Providers Care Director Mobile Name Role Phone Ailin Zavala MD Unavailable [phone] Martina Strickland PA-C Primary Care Provider Amadeo King MD Unavailable + [phone] Claudia Marcus MD Unavailable [phone] Amadeo King MD Unavailable [phone] Joseph Trivedi MD Unavailable [phone] Claudia Marcus MD Unavailable [phone] [...] Contact Info) Description 03/27/2020 [facility] Medical Advice [address] [address] Jessica Chisholm, RN Social History Tobacco Use [...] COVID-19? No / Unsure 03/13/2020 2:59 PM BRAND ACTIVATION MANAGER documented as of this encounter Plan of Treatment Upcoming Encounters Date Type Department Care Team (Late st Contact Info) Description 01/17/2024 3:00 PM CDT Office Visit [facility] Eye [facility] [place] 627266 [facility] 9th [facility] 9A [place] [address] Amadeo King MD 420 [facility] 493 [place], [place] 43[address] 12/05/2024 3:00 PM CDT Office Visit [facility] Eye [facility] [place] 627266 [facility] 9th [facility] 9A [place] [address] Emma Deshpande MD 516 [facility] 911 [place], [place] 198105 documented as of this encounter Visit Diagnoses Not on filedocumented in this encounter Care Teams Director Mobile Relationship Specialty Start Date End Date Martina Strickland PA-C PCP - General Physician X Ray Electronics Wiring Technician 07/19/19 Ailin Zavala MD Internal Medicine 07/28/11 Amadeo King MD [address] 742[address] Ophthalmology 12/22/19 Claudia Marcus MD [facility] EYE [facility] [address] [place] [phone] Assigned Surgical Provider 03/01/20 05/25/20 Amadeo King MD [address] [phone] Assigned PCP 04/07/20 06/02/23 Joseph Trivedi MD [facility] [address] [facility] 215 [place] [address] Rheumatology 05/21/20 Claudia Marcus MD [facility] EYE [facility] [address] [place] [address] Assigned Surgical Provider 06/30/20 10/19/20 Emma Deshpande MD 6 [facility] 911 [place], [place] [phone] Assigned Surgical Provider 05/26/20 06/29/20 Kishan Spain OD 9 [facility] 4th [place] [phone] Assigned Surgical Provider 10/20/20 11/23/20 Emma Deshpande MD [address] [place] [address] 15237 Assigned Surgical Provider 11/24/20 12/07/20 Kishan Spain [address] [place] [address] 4th [place] [phone] Assigned Surgical Provider 12/08/20 03/27/22 Emma Deshpande MD [address] [place] [address] 9[address]70 Assigned Surgical Provider 03/28/22 04/03/22 Rene Grant MD [address] [place] [address] 27695 Assigned Surgical Provider 04/04/22 08/21/22 Amadeo Winston MD [address] [place] [address] 6[address] Assigned Surgical Provider 08/22/22 08/28/22 Amadeo Winston MD [address] [place] [address] 30633 Assigned Surgical Provider 09/05/22 09/11/22 Rene Grant MD [address] [place] [address] 38624 Assigned Surgical Provider 08/29/22 09/04/22 Rene Grant MD 6 [place] [address] Assigned Surgical Provider 09/12/22 documented as of this encounter
== END 2024-01-05 09:40 | disposition home or self-care (01) ==
LOC: FRMREF 09:42
PROVIDERS: PCP Physician Assistant Medical; Visit Provider Physician Assistant Medical
DX: Z00.00 Encounter for general adult medical examination without abnormal findings (principal); R73.03 Prediabetes; E03.9 Hypothyroidism, unspecified
CPT/HCPCS: 84443

== ENCOUNTER 2024-01-06 11:40 | Outpatient (CLI) | payer OTHER, SELFPAY ==
--- OUTSIDE RECORDS SUMMARY | 2024-01-05 11:20 | XMS_ITS | Continuity of Care Document ---
Author Organization [facility] Address [address] [facility] [address] [place] [address] Phone Care Team Providers Care Sheet Metal Lay Out Worker Name Role Phone Farooq RAGLANDBertramJoseph Unavailable Unavailable [...] , [address], [place], [address], [place] tel:[phone] [facility] , Corneal transplant monitor Chronic High Risk Meds (chief complaint) Unspecified complication of corneal transplant, right eyeUnspecifi ed pterygium of right eyeUnspecifi ed complication of corneal transplantOt her termite renewal inspector (current) drug therapy 1 Farooq Ruiz. [facility] [address], [place], [address], [place]. tel:[phone] Referring Provider: Joseph Martin, [facility] [address], [place], [address]. tel:[phone] Office/Outpa tient Visit, Est [facility] , [address], [place], [address], [place] tel:[phone] [facility] , Corneal transplant monitor Chronic High Risk Meds (chief complaint) Unspecified pterygium of right eyeUnspecifi ed complication of corneal transplantOt her intermediate (current) drug therapyUnspe cified complication of corneal transplant, right eye 1 Farooq Ruiz. [facility] [address], [place], [address], [place]. tel:[phone] Referring Provider: Joseph Martin, [facility] [address], [place], [address]. tel:[phone] Office/Outpa tient Visit, Est [facility] , [address], [place], [address], [place] tel:[phone] [facility] , Unspecified pterygium of right eyeUnspecifi ed complication of corneal transplantOt her intermediate (current) drug therapy 0 Farooq Ruiz. [facility] [address], [place], [address], [place]. tel:[phone] Referring Provider: Joseph Martin, [facility] [address], [place], [address]. tel:[phone] Office/Outpa tient Visit, Est [facility] , [address], [place], [address], [place] tel:[phone] [facility] , Unspecified pterygium of right eyeUnspecifi ed complication of corneal transplantOt her intermediate (current) drug therapy 0 Farooq Ruiz. [facility] [address], [place], [address], [place]. tel:[phone] Specialist: Amadeo King, [facility] [address] [facility] [address], [place], [address]. tel:[phone] ng Provider: Joseph Martin, [facility] [address], [place], [address]. tel:[phone] Office/Outpa tient Visit, Est [facility] , [address], [place], [address], [place] tel:[phone] [facility] , Unspecified pterygium of right eyeUnspecifi ed complication of corneal transplantOt her intermediate (current) drug therapy 9 Farooq Ruiz. [facility] [address], [place], [address], [place]. tel:[phone] Specialist: Amadeo King, [facility] [address] [facility] [address], [place], [address]. tel:[phone] ng Provider: Joseph Martin, [facility] [address], [place], [address]. tel:[phone] Office/Outpa tient Visit, New [facility] , [address], [place], [address], [place] tel:[phone] [facility] , Unspecified complication of corneal transplantUn specified pterygium of right eyeOther termite renewal inspector (current) drug therapy 9 Farooq Ruiz. [facility] [address], [place], [address], [place]. tel:[phone] Referring Provider: Joseph Martin, [facility] [address], [place], [address]. tel:[phone] Family History Family Member Type Diagnosis Age At Onset Mother Problem (finding) Arthritis Immunizations Vaccine Date Status Comments COVID-19 Pfizer administered Source: Otdean r Provider COVID-19 Pfizer administered Source: Othe r Provider Payers Payer name Insurance type Covered green party ID Authoriza tion(s) [employer] CI [id number] Social History Type Description Quantity Date Captured [...] Mental Status Date Cognitive Assessment Orientation - Schroeder ed to time, place, person, situation. Patient Care Teams Name Effective Dates (start - stop) Status Members No Information
--- OUTSIDE RECORDS SUMMARY | 2024-01-05 11:20 | XMS_ITS | Clinical Summary ---
Author Organization [facility] Address [place], [place] [address] Care Team Providers Care Radio Sportscaster Name Role Phone Martina Strickland PA-C Primary Care Provider [phone] Allergies Active Allergy Reactions Criticality Noted Date [...] daily with meals. Active medication order composer Stone oil 1000 mg daily Active UBIDECARENONE (COQ-10 [...] Comments Blood Pressure 123/75 04/18/2019 2:56 PM TERMINOLOGIST Pulse 102 04/18/2019 2:56 PM TERMINOLOGIST Temperature 35.7 ??C (96.3 ??F) 04/18/2019 12:[address] Respiratory Rate 16 04/18/2019 2:56 PM TERMINOLOGIST Oxygen Saturation 94% 04/18/2019 2:56 PM TERMINOLOGIST Inhaled Oxygen Concentration - - Weight 110.8 kg (244 lb 3 oz) 04/17/2019 12:09 P M TERMINOLOGIST Height 161 cm (5' 3.39) 04/17/2019 12:09 PM TERMINOLOGIST Body Mass Index 42.73 04/17/2019 12:09 PM TERMINOLOGIST Plan of Treatment Health Maintenance Due Date [...] this topic Medical Devices Implanted Type Area Radiator Cleaner Device Identifier Shelf Expiration Date Model / Serial / Lot Cornea [facility] Eye - [id number] Implanted:Qty: 1 on 07/05/2017 by Ronni Horton MD at [facility] Right: Eye [facility] Eye Bank 07/09/2017 CORNEA#18- [id number]-OD-C / [id number] -C / Allograft 3.5x3.5cm F Amniograft - [id number] Implanted:Qty: 1 on 07/05/2017 by Rogelio Galvan MD at [facility] Right: Eye [employer] 02/02/2019 [id number]# / [id number] / Description:[id number] SERIAL NUMBER Plate Glaucoma Valve Flex Ahmed Silcn - [id number] Implanted:Qty: 1 on 09/30/2018 by Claudia Marcus MD at [facility] Right: Eye New [employer] 08/14/2020 FP7# / [id number] / [id number] Cornea 9.0mm+ Visiongraft W/O Scleral Rim Half - [id number] Implanted:Qty: 1 on 09/30/2018 by Claudia Marcus MD at [facility] Right: Eye [employer] 08/31/2020 [id number] # / [id number] / Description:DIN: [id number] FIN (P): [id number] Cornea [facility] Eye - [id number] Os-C Implanted:Qty: 1 on 04/18/2019 by Amadeo King MD at [facility] Right: Eye [facility] Eye Bank 04/26/2019 CORNEA# / 0 OS-C / Cornea [facility] Eye - [id number] Od-C Implanted:Qty: 1 on 04/18/2019 by Amadeo King MD at [facility] Right: Eye [facility] Eye Bank 04/26/2019 CORNEA# / 2160 OD-C / Iol [place] +21 Tecnis [id number] - [id number] Implanted:Qty: 1 on 04/18/2019 by Amadeo King MD at [facility] Right: Eye [employer] 01/26/2024 [id number] 21.0# / [id number] / Allograft 3.5x3.5cm F Amniograft - [id number] Implanted:Qty: 1 on 04/18/2019 by Amadeo King MD at [facility] Right: Eye [employer] 11/07/2020 [id number]# / [id number] / Procedures Procedure Name Priority Date/Time Associated Diagnosis Comments FUDGE CANDY MAKER THIN PREP PAP SCREEN IMAGED Routine 11/08/2020 1:30 PM CDT from Last 3 Months or Most Recently Relevant to Health Maintenance Results * FUDGE CANDY MAKER THIN PREP PAP SCREEN IMAGED (11/08/2020 1:30 PM CDT) Case Report Gynecologic Cytology Report ? Case: [id number] ? Authorizing Provider: ??Martina Strickland PA-C ?Collected: ? 11/08/2020 1330 ? Ordering Location: ? [facility] ?Received: ?11/11/2020 1612 ? First Screen: ?Isabella Garcia ? Specimen: ?FUDGE CANDY MAKER ThinPrep Vial Screening, Cervical/Vaginal ? 11/21/2020 6:20 PM CDT [facility] INTERPRETATION/ RESULT NEGATIVE FOR INTRAEPITHELIAL LESION OR MALIGNANCY (NIL) (none) 11/21/2020 6:20 PM CDT [facility] IMEN ADEQUACY Satisfactory for evaluation Endocervical component present 11/21/2020 6:20 PM CDT [facility] ENTRAL LAB[facility] HPV REQUEST HPV and PAP 11/21/2020 6:20 PM CDT [facility]-C ENTRAL LABORATORY Date of LMP 11/21/2020 6:20 PM CDT [facility] ENTRAL LABORATORY Comment:unknown Last Pap Date 11/26/2017 11/21/2020 6:[address] [facility] Last Pap Result NIL 6:[address] [facility] Additional Information 11/21/2020 6:20 PM CDT [facility] ENTRNY LABORATORY Comment: Interpreted at [facility] - [address], [place] [address] Automated Review Successful 11/21/2020 6:[address] [facility] Comment:Specimen processed s uccessfully by automated electro winning operator device, ThinPrep Imaging System, [employer] ANCILLARY TESTING FUDGE CANDY MAKER HPV Ordered, Please see separate report 11/21/2020 6:[address] [facility] Note The pap test is [...] and malignant lesions. 11/21/2020 6:[address] [facility] Other (Cervical/Vagina l) 11/08/2020 1:30 PM CDT 11/11/2020 4:12 PM CDT Martina Strickland PA-C PATHOLOGY/CYTOLOGY [facility] [address] [place] [address], [place] from Last 3 Months or Most [...] 6:36 AM 07/05/2017 3:03 PM Care Teams Radio Sportscaster Relationship Specialty Start Date End Date Martina Strickland PA-C [address] [place] [address] PCP - General Emergency Medicine 04/17/19
--- OUTSIDE RECORDS SUMMARY | 2024-01-05 11:21 | XMS_ITS | Encounter Summary ---
Author Organization [facility] Address [address] [place] [address]. [place] [address] Care Team Providers Care Nurse'S Assistant Name Role Phone Ailin Zavala MD Unavailable [phone] Martina Strickland PA-C Primary Care Provider Amadeo King MD Unavailable [phone] Joseph Trivedi MD Unavailable [phone] Rene Grant MD Unavailable [phone] Encounter Details Date Type Department Care [...] Description 01/17/2024 3:00 PM CDT Office Visit [facility] [address] [place] [address] Amadeo King MD [address] [facility] 493 [place] [address] 12/05/2024 3:00 PM CDT Office Visit [facility] 516 [facility] 9th Fl Clin [address] [place] [address] Emma Deshpande MD [address] [facility] [address] [place] [address] documented as of this encounter Visit Diagnoses Not on filedocumented in this encounter Care Teams Nurse'S Assistant Relationship Specialty Start Date End Date Martina Strickland PA-C PCP - General Physician Yardage Tufting Machine Operator 07/19/19 Ailin Zavala MD Internal Medicine 07/28/11 Amadeo King MD [address] [place] [address] Ophthalmology 12/22/19 Joseph Trivedi MD [facility] [address] [facility] [address] [place], [place] [address] Rheumatology 05/21/20 Rene Grant MD [address] [place] [address] 947065 Assigned Surgical Provider 09/12/22 documented as of this encounter
--- OUTSIDE RECORDS SUMMARY | 2024-01-05 11:21 | XMS_ITS | Referral Summary ---
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; Dry eye syndrome of both eyes 12/19/2023 Travel 12/14/2023 Refill [facility] [address] [address] Malorie Padron MD Refill Request 12/07/2023 Travel 12/07/2023 3:10 PM CDT Office Visit [facility] [address] Clin [address] [place] [address] Emma Deshpande MD Epiretinal membrane (ERM) of right eye 12/06/2023 Travel 12/03/2023 MyC Medical Advice [facility] [address] [place] [phone] Kristyn Pastrana, RN 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 12/03/[address] [address] Rene Grant MD Refill Request (prednisoLONE acetate (PRED FORTE) 1 % ophthalmic suspension) 11/29/2023 2:15 PM CDT Office Visit [address] [address] Rene Grant MD 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); Post corneal transplant; Persistent epithelial defect of right cornea 11/28/2023 Travel 11/24/2023 Orders Only [address] [address] Emma Deshpande MD Epiretinal membrane (ERM) of right eye (Primary Dx) 11/08/2023 Travel 11/08/2023 3:00 PM CDT Office Visit [address] [address] Amadeo King MD Sattarova, Victoria, MD Post corneal transplant (Primary Dx); 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; Central corneal ulcer of right eye 11/07/2023 Travel 10/25/2023 Travel 10/25/2023 3:00 PM CDT Office Visit [address] [address] Amadeo King MD 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); Chronically dry eyes, right; Post corneal transplant; Corneal ulcer of right eye 10/24/2023 Travel from Last 3 Months Allergies Active Allergy Reactions Criticality Noted Date Comments Lidocaine Other (See Comments) 07/22/2011 can Other reaction(s): Get the SYLLETA Medications Medication Sig Dispensed Refills Start Date [...] CDT Office Visit [facility] 516 [facility] 9th Fl Clin [address] [place] [address] Amadeo King MD 420 [facility] 493 [place] [address] 12/05/2024 3:00 PM CDT Office Visit [facility] 516 [facility] 9th Fl Clin [address] [place] [address] Emma Deshpande MD 516 [facility] [address] [place] [address] Procedures Procedure Name Priority Date/Time Associated Diagnosis [...] CDT) TSH 14.50(H) 0.4 - 5.0 mU/L [facility] Blood specimen (specimen) 07/22/2011 8:00 AM CDT 07/22/2011 8:14 AM CDT Yesenia Gomez MD LAB - BLOOD O RDERABLES [facility] * Basic metabolic panel (07/22/2011 8:00 AM CDT) Sodium 138 133 - 144 mmol/L [facility] Potassium 4.2 3.4 - 5.3 mmol/L [facility] Chloride 107 94 - 109 mmol/L [facility] Carbon Dioxide 23 20 - 32 mmol/L [facility] Anion Gap 9 6 - 17 mmol/L [facility] Glucose 94 60 - 99 mg/dL [facility] Urea Nitrogen 14 5 - 24 mg/dL [facility] Creatinine 0.68 0.52 - 1.04 mg/dL [facility] GFR Estimate >90 >60 mL/min/1.[address] [facility] GFR Estimate If Black >90 >60 mL/min/1.[address] [facility] Calcium 9.1 8.5 - 10.4 mg/dL [facility] Blood specimen (specimen) 07/22/2011 8:00 AM CDT 07/22/2011 8:14 AM CDT Yesenia Gomez MD LAB - BLOOD O RDERABLES [facility] from Last 3 Months or Most Recently Relevant to Health Maintenance Care Teams Munitions Worker Relationship Specialty Start Date End Date Martina Strickland PA-C PCP - General Physician Carton Stapler 07/19/19 Ailin Zavala MD Internal Medicine 07/28/11 Amadeo King MD 420 [facility] 493 [place], [place] [phone] Ophthalmology 12/22/19 Joseph Trivedi MD [facility] [address] [place], [place] [address] Rheumatology 05/21/20 Rene Grant MD 516 [place], [place] [phone] Assigned Surgical Provider 09/12/22
--- OUTSIDE RECORDS SUMMARY | 2024-01-05 11:21 | XMS_ITS | Encounter Summary ---
Author Organization [facility] Address [address] [place] [address]. [place] [address] Care Team Providers Care Design Analyst Name Role Phone Ailin Zavala MD Unavailable [phone] Martina Strickland PA-C Primary Care Provider Amadeo King MD Unavailable [phone] Joseph Trivedi MD Unavailable [phone] Rene Grant MD Unavailable [phone] Encounter Details Date Type Department Care [...] 01/17/2024 3:00 PM CDT Office Visit [facility] Eye [address] [place] [address] Amadeo King MD 420 [facility] 493 [place] [address] 12/05/2024 3:00 PM CDT Office Visit [facility] 516 [facility] 9th Fl Clin [address] [place] [address] Emma Deshpande MD 516 [facility] [address] [place] [address] documented as of this encounter Visit Diagnoses Not on filedocumented in this encounter Care Teams Design Analyst Relationship Specialty Start Date End Date Martina Strickland PA-C PCP - General Physician Outside Sales Manager 07/19/19 Ailin Zavala MD Internal Medicine 07/28/11 Amadeo King MD [address] [place] [address] [id number] Ophthalmology 12/22/19 Joseph Trivedi MD [facility] [address] [facility] 215 [place], [place] [address] Rheumatology 05/21/20 Rene Grant MD [address] [place] [address] 532005 Assigned Surgical Provider 09/12/22 documented as of this encounter
--- OUTSIDE RECORDS SUMMARY | 2024-01-05 11:21 | XMS_ITS | Encounter Summary ---
Author Organization [facility] Address [address] [place] [address]. [place] [address] Care Team Providers Care Coloring Machine Operator Name Role Phone Ailin Zavala MD Unavailable [phone] Martina Strickland PA-C Primary Care Provider Amadeo King MD Unavailable [phone] Joseph Trivedi MD Unavailable [phone] Rene Gratn MD Unavailable [phone] Encounter Details Date Type Department Care [...] Visit [facility] [address] [place] [address] Amadeo King MD 420 [facility] 493 [place] [address] 12/05/2024 3:00 PM CDT Office Visit [facility] 516 [facility] 9th Fl Clin 9[address] [place] [address] Emma Deshpande MD 516 [facility] [address] [place] [address] documented as of this encounter Visit Diagnoses Not on filedocumented in this encounter Care Teams Coloring Machine Operator Relationship Specialty Start Date End Date Martina Strickland PA-C PCP - General Physician Deep Fryer Assembler 07/19/19 Ailin Zavala MD Internal Medicine 07/28/11 Amadeo King MD [address] [place] [address] Ophthalmology 12/22/19 Joseph Trivedi MD [facility] [address] [facility] 215 [place], [place] [address] Rheumatology 05/21/20 Rene Grant MD [address] [place] [address]185 Assigned Surgical Provider 09/12/22 documented as of this encounter
--- OUTSIDE RECORDS SUMMARY | 2024-01-05 11:21 | XMS_ITS | Encounter Summary ---
Author Organization [facility] [place] Address [address] [place] [address] Care Team Providers Care Rattan Worker Name Role Phone Ailin Zavala MD Unavailable [phone] Martina Strickland PA-C Primary Care Provider Amadeo King MD Unavailable [phone] Joseph Trivedi MD Unavailable [phone] Rene Grant MD Unavailable [phone] Encounter Details Date Type Department Care Team (Late st Contact Info) Description 11/24/2023 Orders Only [facility] [place] [address] [facility] 9th Co Clin 9A [place] [address] Emma Deshpande MD [address] [place] [address] 911 [place], [place] [address] Epiretinal membrane (ERM) of right eye (Primary [...] Description 01/17/2024 3:00 PM CDT Office Visit [facility] 516 [facility] 9th Fl Clin 9A [place] [address] Amadeo King MD 420 [facility] 493 [place] [address] 12/05/2024 3:00 PM CDT Office Visit [facility] 516 [facility] 9th Fl Clin 9A [place] [address] Emma Deshpande MD 516 [facility] [address] [place] [address] documented as of this encounter Results * [...] eye documented in this encounter Care Teams Rattan Worker Relationship Specialty Start Date End Date Martina Strickland PA-C PCP - General Physician Lead Caster Helper 07/19/19 Ailin Zavala MD Internal Medicine 07/28/11 Amadeo King MD 420 [facility] 493 [place] [address] Ophthalmology 12/22/19 Joseph Trivedi MD [facility] [address] [address] Rheumatology 05/21/20 Rene Grant MD 516 [place] [address] Assigned Surgical Provider 09/12/22 documented as of this encounter
--- OUTSIDE RECORDS SUMMARY | 2024-01-05 11:21 | XMS_ITS | Encounter Summary ---
Author Organization [place] Address [address] [place] [address]. [place] [address] Care Team Providers Care Auto Air Conditioning Apprentice Name Role Phone Ailin Zavala MD Unavailable [phone] Martina Strickland PA-C Primary Care Provider Amadeo King MD Unavailable [phone] Joseph Trivedi MD Unavailable [phone] Rene Grant MD Unavailable [phone] Encounter Details Date Type Department Care [...] Description 01/17/2024 3:00 PM CDT Office Visit [facility] Eye [address] 9 [address] Clin 9A [place] [address] Amadeo King MD 420 [facility] 493 [place] [address] 12/05/2024 3:00 PM CDT Office Visit [facility] Eye [facility] 516 [facility] 9th Fl Clin 9A [place] [address] Emma Deshpande MD 516 [facility] [address] [place] [address] documented as of this encounter Visit Diagnoses Not on filedocumented in this encounter Care Teams Auto Air Conditioning Apprentice Relationship Specialty Start Date End Date Martina Strickland PA-C PCP - General Physician Film Critic 07/19/19 Ailin Zavala MD Internal Medicine 07/28/11 Amadeo King MD [address] [place] [address] Ophthalmology 12/22/19 Joseph Trivedi MD [facility] [address] [facility] 215 [place], [place] [address] Rheumatology 05/21/20 Rene Grant MD [address] [place] [address] [phone] Assigned Surgical Provider 09/12/22 documented as of this encounter
--- OUTSIDE RECORDS SUMMARY | 2024-01-05 11:21 | XMS_ITS | Encounter Summary ---
Author Organization [place] Address [address] [place] [address]. [place] [address] Care Team Providers Care Production Clerk Name Role Phone Ailin Zavala MD Unavailable [phone] Martina Strickland PA-C Primary Care Provider Amadeo King MD Unavailable [phone] Joseph Trivedi MD Unavailable [phone] Rene Grant MD Unavailable [phone] Encounter Details Date Type Department Care [...] Description 01/17/2024 3:00 PM CDT Office Visit [facility] Eye [address] Clin [address] [place] [address] Amadeo King MD 420 [facility] 493 [place] [address] 12/05/2024 3:00 PM CDT Office Visit [facility] Eye [facility] 516 [facility] 9th Fl Clin 9A [place] [address] Emma Deshpande MD 516 [facility] [address] 911 [place] [address] documented as of this encounter Visit Diagnoses Not on filedocumented in this encounter Care Teams Production Clerk Relationship Specialty Start Date End Date Martina Strickland PA-C PCP - General Physician Board Of Education Secretary 07/19/19 Ailin Zavala MD Internal Medicine 07/28/11 Amadeo King MD [address] [place] [address] [id number] Ophthalmology 12/22/19 Joseph Trivedi MD [facility] [address] [facility] 215 [place], [place] [address] Rheumatology 05/21/20 Rene Grant MD [address] [place] [address] [id number] Assigned Surgical Provider 09/12/22 documented as of this encounter
--- OUTSIDE RECORDS SUMMARY | 2024-01-05 11:21 | XMS_ITS | Clinical Summary ---
Author Organization [place] Address [address] [place] [address] Care Team Providers Care Social Sciences Professor Name Role Phone Ailin Zavala MD Unavailable [phone] Martina Strickland PA-C Primary Care Provider Amadeo King MD Unavailable [phone] Joseph Trivedi MD Unavailable [phone] Rene Grant MD Unavailable [phone] Allergies Active Allergy Reactions Criticality Noted Date Comments Lidocaine Other (See Comments) 07/22/2011 can Other reaction(s): Get the [employer] Medications Medication Sig Dispensed Refills Start Date [...] Description 12/20/2023 9:15 AM CDT Office Visit [facility] Eye [address] Clin [address] [place] [address] Rene Grant MD Post corneal transplant (Primary Dx); 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; Dry eye syndrome of both eyes 12/20/2023 Travel 12/19/2023 Travel 12/14/2023 Refill [facility] Eye [address] Clin [address] [place] [address] Malorie Padron MD Refill Request 12/07/2023 3:10 PM CDT Office Visit [address] [address] Emma Deshpande MD Epiretinal membrane (ERM) of right eye 12/07/2023 Travel 12/06/2023 Travel 12/03/2023 MyC Medical Advice [facility] Nursing 909 [place] [phone] Kristyn Pastrana RN 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 12/03/[address] [address] Rene Grant MD Refill Request (prednisoLONE acetate (PRED FORTE) 1 % ophthalmic suspension) 11/29/2023 2:15 PM CDT Office Visit [address] [address] Rene Grant MD 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); Post corneal transplant; Persistent epithelial defect of right cornea 11/28/2023 Travel 11/24/2023 Orders Only [address] [address] Emma Deshpande MD Epiretinal membrane (ERM) of right eye (Primary Dx) 11/08/2023 3:00 PM CDT Office Visit [address] [address] Amadeo King MD Sattarova, Victoria, MD Post corneal transplant (Primary Dx); 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; Central corneal ulcer of right eye 11/08/2023 Travel 11/07/2023 Travel 10/25/2023 3:00 PM CDT Office Visit [facility] Eye [address] 9[facility] Clin 9A [place] [address] Amadeo King MD Persistent epithelial defect of [...] CDT Office Visit [facility] Eye [facility] 516 [facility] 9th Fl Clin 9A [place] [address] Amadeo King MD 420 [facility] 493 [place], [place] [address] 12/05/2024 3:00 PM CDT Office Visit [facility] Eye [facility] 516 [facility] 9th Fl Clin 9A [place] [address] Emma Deshpande MD 516 [facility] [address] 911 [place], [place] 6[address] Health Maintenance Due Date Last Done Comments [...] CDT) TSH 14.50(H) 0.4 - 5.0 mU/L [facility] Blood specimen (specimen) 07/22/2011 8:00 AM CDT 07/22/2011 8:14 AM CDT Yesenia Gomez MD LAB - BLOOD O RDERABLES [facility] * Basic metabolic panel (07/22/2011 8:00 AM CDT) Sodium 138 133 - 144 mmol/L [facility] Potassium 4.2 3.4 - 5.3 mmol/L [facility] Chloride 107 94 - 109 mmol/L [facility] Carbon Dioxide 23 20 - 32 mmol/L [facility] Anion Gap 9 6 - 17 mmol/L [facility] Glucose 94 60 - 99 mg/dL [facility] Urea Nitrogen 14 5 - 24 mg/dL [facility] Creatinine 0.68 0.52 - 1.04 mg/dL [facility] GFR Estimate >90 >60 mL/min/1.7 m2 [facility] GFR Estimate If Black >90 >60 mL/min/1.7 m2 [facility] Calcium 9.1 8.5 - 10.4 mg/dL [facility] Blood specimen (specimen) 07/22/2011 8:00 AM CDT 07/22/2011 8:14 AM CDT Yesenia Gomez MD LAB - BLOOD O RDERABLES [facility] from Last 3 Months or Most Recently Relevant to Health Maintenance Care Teams Social Sciences Professor Relationship Specialty Start Date End Date Martina Strickland PA-C PCP - General Physician Gem Cutter 07/19/19 Ailin Zavala MD Internal Medicine 07/28/11 Amadeo King MD [address] [address] Ophthalmology 12/22/19 Joseph Trivedi MD [facility] [address] [address] Rheumatology 05/21/20 Rene Grant MD 6 [place] [address] Assigned Surgical Provider 09/12/22
--- OUTSIDE RECORDS SUMMARY | 2024-01-05 11:21 | XMS_ITS | Encounter Summary ---
Author Organization [place] Address [address] [place] [address] Care Team Providers Care Computer Technology Instructor Name Role Phone Ailin Zavala MD Unavailable [phone] Martina Strickland PA-C Primary Care Provider Amadeo King MD Unavailable [phone] Joseph Trivedi MD Unavailable [phone] Reen Grant MD Unavailable [phone] Encounter Details Date Type Department Care Team (Late st Contact Info) Description 12/03/2023 MyC Medical Advice [place] [address] [place] [address] Kristyn Pastrana, JENNIFER Glaucoma due [...] Office Visit [facility] 516 [facility] [address] Clin 9[address] [place] [address] Amadeo King MD 420 [facility] 493 [place] [address] 12/05/2024 3:00 PM CDT Office Visit [facility] 516 [facility] [address] Clin 9A [place] [address] Emma Deshpande MD 6 [facility] [address] 911 [place], [place] 46[address] documented as of this encounter Visit Diagnoses 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
--- OUTSIDE RECORDS SUMMARY | 2024-01-05 11:21 | XMS_ITS | Encounter Summary ---
Author Organization [place] Address [address] [place] [address] Care Team Providers Care Oak Tanner Name Role Phone Ailin Zavala MD Unavailable [phone] Martina Strickland PA-C Primary Care Provider Amadeo King MD Unavailable [phone] Joseph Trivedi MD Unavailable [phone] Rene Grant MD Unavailable [phone] Reason for Visit * Reason Comments Follow Up # s/p multiple PKP O D # s/p KLAL/PKP OD/IOL exchange right eye 04/18/2019# s/p conj chalasis excision nasally right eye 06/14/2019 Encounter Details Date Type Department Care Team (Late st Contact Info) Description 11/08/2023 3:00 PM CDT Office Visit [facility] 516 [facility] 9th Ut Clin 9A [place] [phone] Amadeo King MD 420 [facility] 493 [place] [address] Cydney Madrid MD 420 [place] [address] Post corneal transplant (Primary Dx); [...] JAMAL carballo DR -- was following at [facility] with Dr. Llamas h/o Aqueous Misdirection s/p [...] Madrid MD Cornea and External Disease Fellow [facility] Attending Physician Attestation: Complete documentation of historical [...] Description 01/17/2024 3:00 PM CDT Office Visit [facility] Eye [facility] 516 [facility] 9th Ut Clin 9A [place] [address] Amadeo King MD 420 [facility] 493 [place] [address] 12/05/2024 3:00 PM CDT Office Visit [facility] [place] [address] [facility] 9th Ut Clin 9A [place] [address] Emma Deshpande MD 516 [facility] 911 [place], [place] [address] documented as of this encounter Visit Diagnoses Diagnosis 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
--- OUTSIDE RECORDS SUMMARY | 2024-01-05 11:21 | XMS_ITS | Encounter Summary ---
Author Organization [place] Address [address] [place] [address]. [place] [address] Care Team Providers Care Vocational Training Director Name Role Phone Ailin Zavala MD Unavailable [phone] Martina Strickland PA-C Primary Care Provider Amadeo King MD Unavailable [phone] Joseph Trivedi MD Unavailable [phone] Rene Grant MD Unavailable [phone] Encounter Details Date Type Department Care [...] Description 01/17/2024 3:00 PM CDT Office Visit [facility] Eye [address] Clin 9A [place] [address] Amadeo King MD 420 [facility] 493 [place] [address] 12/05/2024 3:00 PM CDT Office Visit [facility] Eye [facility] 516 [facility] 9th Fl Clin 9A [place] [address] Emma Deshpande MD 516 [facility] [address] 911 [place] [address] documented as of this encounter Visit Diagnoses Not on filedocumented in this encounter Care Teams Vocational Training Director Relationship Specialty Start Date End Date Martina Strickland PA-C PCP - General Physician Certified Surgical First Assistant 07/19/19 Ailin Zavala MD Internal Medicine 07/28/11 Amadeo King MD [address] [place] [address]26385 Ophthalmology 12/22/19 Joseph Trivedi MD [facility] [address] [facility] 215 [place], [place] [address] Rheumatology 05/21/20 Rene Grant MD [address] [place] [address]455 Assigned Surgical Provider 09/12/22 documented as of this encounter
--- OUTSIDE RECORDS SUMMARY | 2024-01-05 11:21 | XMS_ITS | Encounter Summary ---
Author Organization [place] Address [address] [place] [address] Care Team Providers Care Scheduling Analyst Name Role Phone Ailin Zavala MD Unavailable [phone] Martina Strickland PA-C Primary Care Provider Amadeo King MD Unavailable [phone] Joseph Trivedi MD Unavailable [phone] Rene Grant MD Unavailable [phone] Reason for Visit * Reason Comments Follow Up # s/p multiple PKP O D Encounter Details Date Type Department Care Team (Late st Contact Info) Description 12/20/2023 9:15 AM CDT Office Visit [facility] Eye 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 Llamas h/o Aqueous Misdirection [...] 01/17/2024 3:00 PM CDT Office Visit [facility] Eye [facility] 516 [facility] 9th Fl Clin 9A [place] [address] Amadeo King MD 420 [facility] 493 [place] [address] 12/05/2024 3:00 PM CDT Office Visit [facility] Eye [facility] 516 [facility] 9th Fl Clin 9A [place] [address] Emma Deshpande MD 516 [facility] 911 [place], [place] [address] documented as of this encounter Visit Diagnoses Diagnosis 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
--- OUTSIDE RECORDS SUMMARY | 2024-01-05 11:21 | XMS_ITS | Encounter Summary ---
Author Organization [place] Address [address] [place] [address] Care Team Providers Care Stone Driller Name Role Phone Ailin Zavala MD Unavailable [phone] Martina Strickland PA-C Primary Care Provider Amadeo King MD Unavailable [phone] Joseph Trivedi MD Unavailable [phone] Rene Grant MD Unavailable [phone] Reason for Visit * Reason Comments Follow Up Epiretinal membrane Encounter Details Date Type Department Care Team (Late st Contact Info) Description 12/07/2023 3:10 PM CDT Office Visit [facility] Eye [place] [address]136 [facility] [address] Clin 9A [place] [address] Emma Deshpande MD [address] [place] [address] 911 [place] [address] Epiretinal membrane (ERM) of right eye Social [...] patient and family Emma Deshpande MD, PhD Seafood Clerk, Vitreoretinal Surgery Department of Ophthalmology [facility] documented in this encounter Plan of Treatment Upcoming Encounters Date Type Department Care Team (Late st Contact Info) Description 01/17/2024 3:00 PM CDT Office Visit [facility] 516 [facility] 9th [facility] 9A [place] [address] Amadeo King MD 420 [facility] 493 [place] [address] 12/05/2024 3:00 PM CDT Office Visit [facility] 516 [facility] 9th [facility] 9A [place] [address] Emma Deshpande MD 516 [facility] 911 [place] [address] documented as of this encounter Procedures Procedure [...] eye documented in this encounter Care Teams Stone Driller Relationship Specialty Start Date End Date Martina Strickland PA-C PCP - General Physician Mechanical Equipment Sales Engineer 07/19/19 Ailin Zavala MD Internal Medicine 07/28/11 Amadeo King MD [address] [phone] Ophthalmology 12/22/19 Joseph Trivedi MD [facility] [address] 215 [place], [place] [address] Rheumatology 05/21/20 Rene Grant MD 516 [place], [place] [phone] Assigned Surgical Provider 09/12/22 documented as of this encounter
--- OUTSIDE RECORDS SUMMARY | 2024-01-05 11:21 | XMS_ITS | Encounter Summary ---
Author Organization [place] Address [address] [place] [address] Care Team Providers Care Mind Reader Name Role Phone Ailin Zavala MD Unavailable [phone] Martina Strickland PA-C Primary Care Provider Amadeo King MD Unavailable [phone] Joseph Trivedi MD Unavailable [phone] Rene Grant MD Unavailable [phone] Reason for Visit * Reason Comments Corneal Ulcer Follow Up Encounter Details Date Type Department Care Team (Late st Contact Info) Description 10/25/2023 3:00 PM CDT Office Visit [facility] Eye [facility] 516 [facility] 9th Fl Clin 9A [place] [address] Amadeo King MD 420 [facility] 493 [place] [address] Persistent epithelial defect of right cornea (Primary [...] 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 with Dr. 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, right Post corneal transplant Cornea replaced by transplant Corneal ulcer of right eye Corneal ulcer, unspecified documented in this encounter Care Teams Mind Reader Relationship Specialty Start Date End Date Martina Strickland PA-C PCP - General Physician Building Maintenance Custodian 07/19/19 Ailin Zavala MD Internal Medicine 07/28/11 Amadeo King MD 420 [facility] 493 [place] [address] Ophthalmology 12/22/19 Joseph Trivedi MD [facility] [address] 215 [place], [place] [address] Rheumatology 05/21/20 Rene Grant MD 516 [place], [place] [phone] Assigned Surgical Provider 09/12/22 documented as of this encounter
--- OUTSIDE RECORDS SUMMARY | 2024-01-05 11:21 | XMS_ITS | Encounter Summary ---
Author Organization [place] Address [address] [place] [address]. [place] [address] Care Team Providers Care Call Center Recruiter Name Role Phone Ailin Zavala MD Unavailable [phone] Martina Strickland PA-C Primary Care Provider Amadeo King MD Unavailable [phone] Joseph Trivedi MD Unavailable [phone] Rene Grant MD Unavailable [phone] Encounter Details Date Type Department Care [...] 01/17/2024 3:00 PM CDT Office [facility] Eye [address] 9 [address] Clin 9A [place] [address] Amadeo King MD 420 [facility] 493 [place] [address] 12/05/2024 3:00 PM CDT Office [facility] Eye [facility] 516 [facility] 9th Fl Clin 9A [place] [address] Emma Deshpande MD 516 [facility] [address] 911 [place] [address] documented as of this encounter Visit Diagnoses Not on filedocumented in this encounter Care Teams Call Center Recruiter Relationship Specialty Start Date End Date Martina Strickland PA-C PCP - General Physician Principal Network Architect 07/19/19 Ailin Zavala MD Internal Medicine 07/28/11 Amadeo King MD [address] [place] [address] Ophthalmology 12/22/19 Joseph Trivedi MD [facility] [address] [facility] 215 [place], [place] [address] Rheumatology 05/21/20 Rene Grant MD [address] [place] [phone] Assigned Surgical Provider 09/12/22 documented as of this encounter
--- OUTSIDE RECORDS SUMMARY | 2024-01-05 11:21 | XMS_ITS | Encounter Summary ---
Author Organization [place] Address [address] [place] [address]. [place] [address] Care Team Providers Care Veterinary Pharmacologist Name Role Phone Ailin Zavala MD Unavailable [phone] Martina Strickland PA-C Primary Care Provider Amadeo King MD Unavailable [phone] Joseph Trivedi MD Unavailable [phone] Rene Grant MD Unavailable [phone] Encounter Details Date Type Department Care [...] Description 01/17/2024 3:00 PM CDT Office Visit [facility] Eye [address] 9 [address] Clin 9A [place] [address] Amadeo King MD 420 [facility] 493 [place] [address] 12/05/2024 3:00 PM CDT Office Visit [facility] 516 [facility] 9th Fl Clin 9A [place] [address] Emma Deshpande MD 516 [facility] [address] 911 [place] [address] documented as of this encounter Visit Diagnoses Not on filedocumented in this encounter Care Teams Veterinary Pharmacologist Relationship Specialty Start Date End Date Martina Strickland PA-C PCP - General Physician Supervisor Pit And Auxiliaries 07/19/19 Ailin Zavala MD Internal Medicine 07/28/11 Amadeo King MD [address] [place] [address]935 Ophthalmology 12/22/19 Joseph Trivedi MD [facility] [address] [facility] 215 [place], [place] [address] Rheumatology 05/21/20 Rene Grant MD [address] [place] [address] Assigned Surgical Provider 09/12/22 documented as of this encounter
--- OUTSIDE RECORDS SUMMARY | 2024-01-05 11:21 | XMS_ITS | Encounter Summary ---
Author Organization [place] Address [address] [place] [address] Care Team Providers Care Information Specialist Name Role Phone Ailin Zavala MD Unavailable [phone] Martina Strickland PA-C Primary Care Provider Amadeo King MD Unavailable [phone] Joseph Trivedi MD Unavailable [phone] Rene Grant MD Unavailable [phone] Reason for Visit * Reason Onset Date Comments Refill Request 12/14/2023 Encounter Details Date Type Department Care Team (Late st Contact Info) Description 12/14/2023 Refill [facility] 516 [facility] 9th [facility] 9A [place] [phone] Malorie Padron MD 420 [facility] 493 [place] [address] Refill Request Social History Tobacco Use Types [...] Description 01/17/2024 3:00 PM CDT Office Visit [facility] 9th [facility] 9A [place] [address] Amadeo King MD 420 [facility] 493 [place], [place] [address]385 12/05/2024 3:00 PM CDT Office Visit [facility] 516 [facility] 9th [facility] 9A [place] [phone] Emma Deshpande MD 516 [facility] 911 [place], [place] [address] documented as of this encounter Visit Diagnoses 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
--- OUTSIDE RECORDS SUMMARY | 2024-01-05 11:21 | XMS_ITS | Encounter Summary ---
Author Organization [place] Address [address] [place] [address] Care Team Providers Care Bottle Blower Name Role Phone Ailin Zavala MD Unavailable [phone] Martina Strickland PA-C Primary Care Provider Amadeo King MD Unavailable [phone] Joseph Trivedi MD Unavailable [phone] Rene Grant MD Unavailable [phone] Reason for Visit * Reason Comments Follow Up Encounter Details Date Type Department Care Team (Late st Contact Info) Description 11/29/2023 2:15 PM CDT Office Visit [facility] Eye [address] 9[facility] 9A [place] [phone] Rene Grant MD [address] [place] [address] 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 Llamas h/o Aqueous Misdirection [...] restasis, Latanoprost at bedtime right eye. Katerina Mnaning on 11/29/2023 at 2:25 PM documented in this encounter Plan of Treatment Upcoming Encounters Date Type Department Care Team (Late st Contact Info) Description 01/17/2024 3:00 PM CDT Office Visit [facility] - [address] 9[facility] 9A [place] [address] Amadeo King MD 420 [facility] 493 [place] [address] 12/05/2024 3:00 PM CDT Office Visit [facility] - [address] 9[facility] 9A [place] [address] Emma Deshpande MD 516 [facility] [address] 911 [place], [place] [address] documented as of this encounter Visit Diagnoses Diagnosis 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- Primary Post corneal transplant Cornea replaced by 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
--- OUTSIDE RECORDS SUMMARY | 2024-01-05 11:21 | XMS_ITS | Encounter Summary ---
Author Organization [place] Address [address] [place] [address]. [place] [address] Care Team Providers Care Archaeologist Name Role Phone Ailin Zavala MD Unavailable [phone] Martina Strickland PA-C Primary Care Provider Amadeo King MD Unavailable [phone] Joseph Trivedi MD Unavailable [phone] Rene Grant MD Unavailable [phone] Encounter Details Date Type Department Care [...] Description 01/17/2024 3:00 PM CDT Office Visit [facility] [address] 9 Mt Clin 9A [place] [address] Amadeo King MD 420 [facility] 493 [place] [address] 12/05/2024 3:00 PM CDT Office Visit [facility] 516 [facility] 9th Fl Clin 9A [place] [address] Emma Deshpande MD 516 [facility] [address] 911 [place] [address] documented as of this encounter Visit Diagnoses Not on filedocumented in this encounter Care Teams Archaeologist Relationship Specialty Start Date End Date Martina Strickland PA-C PCP - General Physician Ceramics Technician 07/19/19 Ailin Zavala MD Internal Medicine 07/28/11 Amadeo King MD [address] [place] [address] Ophthalmology 12/22/19 Joseph Trivedi MD [facility] [address] [facility] 215 [place], [place] [address] Rheumatology 05/21/20 Rene Grant MD [address] [place] [address] 760865 Assigned Surgical Provider 09/12/22 documented as of this encounter
--- OUTSIDE RECORDS SUMMARY | 2024-01-05 11:21 | XMS_ITS | Encounter Summary ---
Author Organization [place] Address [address] [place] [address] Care Team Providers Care Legal Operations Manager Name Role Phone Ailin Zavala MD Unavailable [phone] Martina Strickland PA-C Primary Care Provider Amadeo King MD Unavailable [phone] Joseph Trivedi MD Unavailable [phone] Rene Grant MD Unavailable [phone] Reason for Visit * Reason Onset Date Comments Refill Request 12/03/2023 prednisoLONE dick benitez (PRED FORTE) 1 % ophthalmic suspension Encounter Details Date Type Department Care Team (Late st Contact Info) Description 12/03/2023 Refill [facility] Eye [address] 9 [facility] 9A [place] [phone] Rene Grant MD [address] [place] [address] [phone] Refill Request (prednisoLONE acetate (PRED FORTE) 1 [...] Right Eye Last Office Visit : 11/29/2023 [facility] Future Office visit: 12/07/2023 3:10 PM (10 [...] a script for 5ml, please send to: [id number] - [place], [place] - [address] AT [place] [address] & [facility] * Telephone Encounter - Daniella Jimenes - 12/03/2023 4:20 PM CDT [facility] Call Center Phone Message May a detailed message be left on voicemail: yes Reason for Call: Medication Refill Request Has the patient contacted the pharmacy for the refill? Yes Name of medication being requested: prednisoLONE acetate (PRED FORTE) 1 % ophthalmic suspension Provider who prescribed the medication: [facility] Pharmacy: [facility] - [address] Date medication is needed: JOSE MANUEL Patient aware of end of day and typical turn around. She was wondering if a temporary script for 5 ml could be sent sooner as she states mail order takes atleast a week to send to her. If able to send a script for 5ml, please send to: [id number] - [place], [place] - [address] AT [place] [address] & [facility] Action Taken: Message routed to: [facility] Eye Travel Screening: Not Applicable documented in this encounter Plan of Treatment Upcoming Encounters Date Type Department Care Team (Late st Contact Info) Description 01/17/2024 3:00 PM CDT Office Visit [facility] [place] [id number] [facility] 9[facility] 9A [place] [phone] Amadeo King MD [address] [place] [address] 12/05/2024 3:00 PM CDT Office Visit [facility] Eye [facility] [place] 581666 [facility] 9th [facility] 9A [place] [phone] Emma Deshpande MD [address] [place] [address] 911 [place], [place] 229135 documented as of this encounter Visit Diagnoses Diagnosis Post corneal transplant Cornea replaced by transplant Corneal transplant rejection, right eye documented in this encounter Care Teams Legal Operations Manager Relationship Specialty Start Date End Date Martina Strickland PA-C PCP - General Physician Scene Shifter 07/19/19 Ailin Zavala MD Internal Medicine 07/28/11 Amadeo King MD [address] [place] [address] 493 [place], [place] [address] Ophthalmology 12/22/19 Joseph Trivedi MD [facility] [address] [facility] 215 [place], [place] [address] Rheumatology 05/21/20 Rene Grant MD 6 [place], [place] 498565 Assigned Surgical Provider 09/12/22 documented as of this encounter
--- OUTSIDE RECORDS SUMMARY | 2024-01-05 11:22 | XMS_ITS | Encounter Summary ---
Author Organization [place] Address [address] [place] [address]. [place] [address] Care Team Providers Care Graphics Software Engineer Name Role Phone Ailin Zavala MD Unavailable [phone] Martina Strickland PA-C Primary Care Provider Amadeo King MD Unavailable [phone] Amadeo King MD Unavailable [phone] Joseph Trivedi MD Unavailable [phone] Kishan Spain OD Unavailable Emma Deshpande MD Unavailable [phone] Rene Grant MD Unavailable Amadeo Winston MD Unavailable [phone] Amadeo Winston MD Unavailable [phone] Rene Grant MD Unavailable [phone] Rene Grant MD Unavailable [phone] Reason for Visit * Reason Comments Medication Refill PREDNISOLONE ACET O/ DILSHAD 1% Encounter Details Date Type Department Care Team (Late st Contact Info) Description 05/28/2021 Refill [facility] - [address] 4th [place] [address] Silas Cody MD [facility]0 [place] [address] Medication Refill (PREDNISOLONE ACET O/DILSHAD [...] COVID-19? No / Unsure 05/29/2021 2:48 PM COMPUTER REPAIR INSTRUCTOR documented as of this encounter Miscellaneous Notes [...] Leo RN Central Triage Red Flags/Med Refills UTER REPAIR INSTRUCTOR documented in this encounter Plan of Treatment Upcoming Encounters Date Type Department Care Team (Late st Contact Info) Description 01/17/2024 3:00 PM CDT Office Visit [facility] - [facility] 516 [facility] 9th [facility] 9A [place] [address] Amadeo King MD 420 [facility] 493 [place] [address] 12/05/2024 3:00 PM CDT Office Visit [facility] [place] [address]686 [facility] 9th [facility] 9A [place] [phone] Emma Deshpande MD 516 [facility] 911 [place], [place] [address] documented as of this encounter Visit Diagnoses 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 documented in this encounter Care Teams Graphics Software Engineer Relationship Specialty Start Date End Date Martina Strickland PA-C PCP - General Physician Dental Service Chief 07/19/19 Ailin Zavala MD Internal Medicine 07/28/11 Amadeo King MD [address] [place] [address] 493 [place], [place] [address] Ophthalmology 12/22/19 Amadeo King MD [address] [place] [address] 493 [place] [address] Assigned PCP 04/07/20 06/02/23 Joseph Trivedi MD [facility] [address] [facility] 215 [place], [place] [address] Rheumatology 05/21/20 Kishan Spain OD 909 [facility] 4th [place] [phone] Assigned Surgical Provider 12/08/20 03/27/22 Emma Deshpande MD [address] [place] [address] 911 [place], [place] [address]195 Assigned Surgical Provider 03/28/22 04/03/22 Rene Grant MD [address] [place] [address] 970295 Assigned Surgical Provider 04/04/22 08/21/22 Amadeo Winston MD [address] [place] [address] 028535 Assigned Surgical Provider 08/22/22 08/28/22 Amadeo Winston MD [address] [place] [address] Assigned Surgical Provider 09/05/22 09/11/22 Rene Grant MD [address] [place] [address] 362235 Assigned Surgical Provider 08/29/22 09/04/22 Rene Grant MD [address] [place] [address] Assigned Surgical Provider 09/12/22 documented as of this encounter
--- OUTSIDE RECORDS SUMMARY | 2024-01-05 11:22 | XMS_ITS | Encounter Summary ---
Author Organization [place] Address [address] [place] [address] Care Team Providers Care Injection Molding Engineer Name Role Phone Ailin Zavala MD Unavailable Martina Strickland PA-C Primary Care Provider Amadeo King MD Unavailable [phone] Amadeo King MD Unavailable [phone] Joseph Trivedi MD Unavailable Rene Grant MD Unavailable Amadeo Winston MD Unavailable Amadeo Winston MD Unavailable Rene Grant MD Unavailable Rene Grant MD Unavailable Reason for Visit * Reason Onset Date Comments Refill Request 06/22/2022 prednisoLONE dcik benitez (PRED FORTE) 1 % ophthalmic suspension Encounter Details Date Type Department Care Team (Late st Contact Info) Description 06/22/2022 [facility] Eye [address] 9 Pa Clin 9A [place] [phone] Rene Grant MD [address] [place] [address] Refill Request (prednisoLONE acetate (PRED FORTE) [...] Coronavirus/COVID-19? No / Unsure 06/03/2022 2:32 PM SLASH TRIMMER documented as of this encounter Miscellaneous Notes [...] to arrive. requests 10 ml 0 rfs. H TRIMMER * Telephone Encounter - Ashley Paula - 06/22/2022 1:03 PM CST [facility] Call Center Phone Message May a detailed message be left on voicemail: yes Reason for Call: Medication Refill Request Has the patient contacted the pharmacy for the refill? Yes Name of medication being requested: prednisoLONE acetate (PRED FORTE) 1 % ophthalmic suspension Provider who prescribed the medication: Dr. Grant Pharmacy: [facility] Date medication is needed: JOSE MANUEL Patient called stating she will not have this medication until the from her mail order pharmacy and she is out. She is asking for an emergency refill. Action Taken: Other: eye Travel Screening: Not Applicable H TRIMMER documented in this encounter Plan of Treatment Upcoming Encounters Date Type Department Care Team (Late st Contact Info) Description 01/17/2024 3:00 PM CDT Office Visit [facility] Eye [facility] 516 [facility] 9th [facility] 9A [place] [address] Amadeo King MD 420 [facility] 493 [place] [address] 12/05/2024 3:00 PM CDT Office Visit [facility] 516 [facility] 9th [facility] 9A [place] [address] Emma Deshpande MD 516 [facility] 911 [place], [place] [address] documented as of this encounter Visit Diagnoses Diagnosis 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 documented in this encounter Care Teams Injection Molding Engineer Relationship Specialty Start Date End Date Martina Strickland PA-C PCP - General Physician Employee Communications Manager 07/19/19 Ailin Zavala MD Internal Medicine 07/28/11 Amadeo King MD [address] [place] [address] Ophthalmology 12/22/19 Amadeo King MD [address] [place] [address] 493 [place] [address] Assigned PCP 04/07/20 06/02/23 Joseph Trivedi MD [facility] [address] 215 [place], [place] [address] Rheumatology 05/21/20 Rene Grant MD [address] [place] [address] Assigned Surgical Provider 04/04/22 08/21/22 Amadeo Winston MD [address] [place] [address] 182935 Assigned Surgical Provider 08/22/22 08/28/22 Amadeo Winston MD [address] [place] [address] Assigned Surgical Provider 09/05/22 09/11/22 Rene Grant MD [address] [place] [address] 962665 Assigned Surgical Provider 08/29/22 09/04/22 Rene Grant MD [address] [place] [address] 258495 Assigned Surgical Provider 09/12/22 documented as of this encounter
--- OUTSIDE RECORDS SUMMARY | 2024-01-05 11:22 | XMS_ITS | Encounter Summary ---
Author Organization [place] Address [address] [place] [address] Care Team Providers Care Health And Fitness Instructor Name Role Phone Ailin Zavala MD Unavailable [phone] Martina Strickland PA-C Primary Care Provider Amadeo King MD Unavailable [phone] Claudia Marcus MD Unavailable [phone] Amadeo King MD Unavailable [phone] Joseph Trivedi MD Unavailable [phone] Claudia Marcus MD Unavailable [phone] [...] (Late st Contact Info) Description 10/09/2019 Telephone [facility] Ophthalmology 909 [facility] [address] 4th [place] [address] Amadeo King MD 420 [facility] 493 [place] [address] Call Back (Appt tm at [...] Santino Leon - 10/09/2019 2:21 PM CDT [facility] Call Center Phone Message May a [...] Description 01/17/2024 3:00 PM CDT Office Visit [facility] Eye [facility] 516 [facility] 9th Ks Clin 9A [place] [address] Amadeo King MD 420 [facility] 493 [place], [place] [address] 12/05/2024 3:00 PM CDT Office Visit [facility] - [facility] 516 [facility] 9th K[facility] Clin 9A [place] [phone] Emma Deshpande MD 516 [facility] [address] 911 [place], [place] [address] documented as of this encounter Visit Diagnoses Not on filedocumented in this encounter Care Teams Health And Fitness Instructor Relationship Specialty Start Date End Date Martina Strickland PA-C PCP - General Physician Supervisor Insulation 07/19/19 Ailin Zavala MD Internal Medicine 07/28/11 Amadeo King MD [address] [place] [address] Ophthalmology 12/22/19 Claudia Marcus MD [facility] EYE [facility] [address] [place] [address] Assigned Surgical Provider 03/01/20 05/25/20 Amadeo King MD [address] [place] [address] 493 [place] [address] Assigned PCP 04/07/20 06/02/23 Joseph Trivedi MD [facility] [address] [facility] 215 [place] [address] Rheumatology 05/21/20 Claudia Marcus MD [facility] EYE [facility] [address] [place] [phone] Assigned Surgical Provider 06/30/20 10/19/20 Emma Deshpande MD [address] [place] [address] 683125 Assigned Surgical Provider 05/26/20 06/29/20 Kishan Spain, OD 909 [facility] 4th [place] [address] Assigned Surgical Provider 10/20/20 11/23/20 Emma Deshpande MD [address] [place] [address] [id number] Assigned Surgical Provider 11/24/20 12/07/20 Kishan Spain, OD 909 [facility] 4th [place] [address] Assigned Surgical Provider 12/08/20 03/27/22 Emma Deshpande MD [address] [place] [address] [id number] Assigned Surgical Provider 03/28/22 04/03/22 Rene Grant MD [address] [place] [address] Assigned Surgical Provider 04/04/22 08/21/22 Amadeo Winston MD [address] [place] [address] Assigned Surgical Provider 08/22/22 08/28/22 Amadeo Winston MD [address] [place] [address] Assigned Surgical Provider 09/05/22 09/11/22 Rene Grant MD [address] [place] [address] Assigned Surgical Provider 08/29/22 09/04/22 Rene Grant MD [address] [place] [address] Assigned Surgical Provider 09/12/22 documented as of this encounter
--- OUTSIDE RECORDS SUMMARY | 2024-01-05 11:22 | XMS_ITS | Encounter Summary ---
Author Organization [place] Address [address] [place] [address] 19169 Care Team Providers Care Ice Carver Name Role Phone Ailin Zavala MD Unavailable [phone] Martina Strickland PA-C Primary Care Provider Amadeo King MD Unavailable [phone] Claudia Marcus MD Unavailable [phone] Amadeo King MD Unavailable [phone] Joseph Trivedi MD Unavailable [phone] Claudia Marcus MD Unavailable [phone] [...] for return to work send back in Xamplified Please Encounter Details Date Type Department Care Team ([facility] st Contact Info) Description 07/25/2019 Telephone [facility] 516 [facility] 9th Fl Clin 9A [place] [phone] Amadeo King MD 420 [facility] 493 [place] [address] Patient Request for Note/Letter (Pt needs the Exact date for return to work send back in Xamplified Please) Social History Tobacco Use Types Packs/Day [...] back to work Please send back in Oasys Mobile Provider: Dr King Date form needed: JOSE MANUEL Once completed: Send back in Xamplified Action Taken: Message routed to: [facility] Travel Screening: Not Applicable documented in this encounter Plan of Treatment Upcoming Encounters Date Type Department Care Team (Late st Contact Info) Description 01/17/2024 3:00 PM CDT Office Visit [facility] Eye [facility] - [facility] 516 [facility] 9th Fl Clin 9A [place] [phone] Amadeo King MD 420 [facility] 493 [place], [place] 364545 12/05/2024 3:00 PM CDT Office Visit [facility] Eye [facility] - [facility] [address] 9th Fl Clin 9A [place] [phone] Emma Deshpande MD 516 [facility] 911 [place], [place] [phone] documented as of this encounter Visit Diagnoses Not on filedocumented in this encounter Care Teams Ice Carver Relationship Specialty Start Date End Date Martina Strickland PA-C PCP - General Physician Clock And Watch Assembler 07/19/19 Ailin Zavala MD Internal Medicine 07/28/11 Amadeo King MD [address] [place] [address] 493 [place], [place] [phone] Ophthalmology 12/22/19 Claudia Marcus MD [facility] EYE [facility] [address] [place] [phone] Assigned Surgical Provider 03/01/20 05/25/20 Amadeo King MD [address] [place] [address] 493 [place] [address] Assigned PCP 04/07/20 06/02/23 Joseph Trivedi MD [facility] [address] [facility] 215 [place] [address] Rheumatology 05/21/20 Claudia Marcus MD [facility] EYE [facility] [address] [place] [phone] Assigned Surgical Provider 06/30/20 10/19/20 Emma Deshpande MD [address] [place] [address] 34548 Assigned Surgical Provider 05/26/20 06/29/20 Kishan Spain, OD [address] [place] [phone] Assigned Surgical Provider 10/20/20 11/23/20 Emma Deshpande MD [address] [place] [address] 190115 Assigned Surgical Provider 11/24/20 12/07/20 Kishan Spain, OD [address] [place] [address] [phone] Assigned Surgical Provider 12/08/20 03/27/22 Emma Deshpande MD [address] [place] [address] 035275 Assigned Surgical Provider 03/28/22 04/03/22 Rene Grant MD [address] [place] [address] Assigned Surgical Provider 04/04/22 08/21/22 Amadeo Winston MD [address] [place] [address] 465505 Assigned Surgical Provider 08/22/22 08/28/22 Amadeo Winston MD [address] [place] [address] 847505 Assigned Surgical Provider 09/05/22 09/11/22 Rene Grant MD [address] [place] [address] 135505 Assigned Surgical Provider 08/29/22 09/04/22 Rene Grant MD [address] [place] [address] 138725 Assigned Surgical Provider 09/12/22 documented as of this encounter
--- OUTSIDE RECORDS SUMMARY | 2024-01-05 11:22 | XMS_ITS | Encounter Summary ---
Author Organization [place] Address [address] [place] [address]197 Care Team Providers Care Mgmt Specialist Name Role Phone Ailin Zavala MD Unavailable [phone] Martina Strickland PA-C Primary Care Provider Amadeo King MD Unavailable [phone] Joseph Trivedi MD Unavailable [phone] Rene Grant MD Unavailable [phone] Reason for Visit * Reason Onset Date Comments Appointment 09/07/2023 2-3 week follow up Encounter Details Date Type Department Care Team (Late st Contact Info) Description 09/07/2023 Telephone [facility] Eye [facility] 516 [facility] 9[facility] Clin 9A [place] [phone] Amadeo King MD [address] [address] Appointment (2-3 week follow up) Social History [...] Callie Norwood - 09/07/2023 11:22 AM CDT [facility] Call Center Phone Message May a [...] Message routed to: [facility] ([facility]): EYE Travel Screening: Not Applicable documented in this encounter Plan of Treatment Upcoming Encounters Date Type Department Care Team (Late st Contact Info) Description 01/17/2024 3:00 PM CDT Office Visit [facility] Eye [facility] 516 [facility] 9th [place] Clin 9A [place] [address] Amadeo King MD 420 [facility] 493 [place] [address] 12/05/2024 3:00 PM CDT Office Visit [facility] Eye [facility] - [facility] 516 [facility] 9th Fl Clin 9A [place] [address] Emma Deshpande MD 516 [facility] [place] 911 [place] [address] documented as of this encounter Visit Diagnoses Not on filedocumented in this encounter Care Teams Mgmt Specialist Relationship Specialty Start Date End Date Martina Strickland PA-C PCP - General Physician Link Wire Fabric Machine Tender 07/19/19 Ailin Zavala MD Internal Medicine 07/28/11 Amadeo King MD 420 [facility] 493 [place] [address] Ophthalmology 12/22/19 Joseph Trivedi MD [facility] [address] [place], [place] 88[address] Rheumatology 05/21/20 Rene Grant MD 516 [place] [address] Assigned Surgical Provider 09/12/22 documented as of this encounter
--- OUTSIDE RECORDS SUMMARY | 2024-01-05 11:22 | XMS_ITS | Encounter Summary ---
Author Organization [place] Address [address] [place] [address] Care Team Providers Care Shift Superintendent Caustic Cresylate Name Role Phone Ailin Zavala MD Unavailable [phone] Ailin Zavala MD Primary Care Provider Martina [...] (Late Contact Info) Description 10/01/2018 Office Visit [place] 686036 [facility] 9[facility] 9[address] [place] [phone] Gonzalez Perry MD [facility] 8450 [place] [address] Aqueous misdirection, right - Right Eye (Primary [...] Description 01/17/2024 3:00 PM CDT Office Visit [address] 9[facility] 9[address] [place] [phone] Amadeo King MD 420 [facility] 493 [place], [place] 2730[address] 12/05/2024 3:00 PM CDT Office Visit [place] 686036 [facility] 9[facility] 9[address] [place] [phone] Emma Deshpande MD 516 [facility] 911 [place], [place] 342965 documented as of this encounter Visit Diagnoses Diagnosis Aqueous misdirection, 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 - Right Eye Other states following surgery of eye and adnexa 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 Unspecified glaucoma documented in this encounter Care Teams Shift Superintendent Caustic Cresylate Relationship Specialty Start Date End Date Ailin Zavala MD PCP - General Internal Medicine 07/28/11 07/18/19 Martina Strickland PA-C PCP - General Physician Sign Manufacturer 07/19/19 Ailin Zavala MD Internal Medicine 07/28/11 Amadeo King MD [address] [place] [address] 177765 Ophthalmology 12/22/19 Claudia Marcus MD [facility] EYE [facility] [address] [place] [phone] Assigned Surgical Provider 03/01/20 05/25/20 Amadeo King MD [address] [place] [address] [phone] Assigned PCP 04/07/20 06/02/23 Joseph Trivedi MD [facility] [address] [place] [address] [address] [place] [phone] Rheumatology 05/21/20 Claudia Marcus MD [facility] EYE [facility] [address] [address] Assigned Surgical Provider 06/30/20 10/19/20 Emma Deshpande MD [address] [place] [address] Assigned Surgical Provider 05/26/20 06/29/20 Kishan Spain, OD [address] [place] [address] [phone] Assigned Surgical Provider 10/20/20 11/23/20 Emma Deshpande MD [address] [place] [address] 116[address] Assigned Surgical Provider 11/24/20 12/07/20 Kishan Spain, OD [address] [place] [address] [phone] Assigned Surgical Provider 12/08/20 03/27/22 Emma Deshpande MD [address] [place] [address] [phone] Assigned Surgical Provider 03/28/22 04/03/22 Rene Grant MD [address] [place] [address] 864025 Assigned Surgical Provider 04/04/22 08/21/22 Amadeo Winston MD [address] [place] [address] Assigned Surgical Provider 08/22/22 08/28/22 Amadeo Winston MD [address] [place] [address] 446315 Assigned Surgical Provider 09/05/22 09/11/22 Rene Grant MD [address] [place] [address] 769335 Assigned Surgical Provider 08/29/22 09/04/22 Rene Grant MD 6 [place], [place] [phone] Assigned Surgical Provider 09/12/22 documented as of this encounter
--- OUTSIDE RECORDS SUMMARY | 2024-01-05 11:22 | XMS_ITS | Encounter Summary ---
Author Organization [place] Address [address] [place] [address] 31014 Care Team Providers Care Inspector Automatic Typewriter Name Role Phone Ailin Zavala MD Unavailable [phone] Martina Strickland PA-C Primary Care Provider Amadeo King MD Unavailable [phone] Joseph Trivedi MD Unavailable [phone] Rene Grant MD Unavailable [phone] Encounter Details Date Type Department Care Team (Late st Contact Info) Description 09/09/2023 [facility] Medical [facility] Eye [address] Clin 9A [place] [address] [facility] Social History Tobacco Use Types Packs/Day Years [...] CDT Office Visit [facility] Eye [facility] - [facility] 516 [facility] 9th Tx Clin 9A [place] [address] Amadeo King MD 420 [facility] 493 [place] [address] 12/05/2024 3:00 PM CDT Office Visit [facility] Eye [facility] - [facility] 516 [facility] 9th [facility] 9A [place] [phone] Emma Deshpande MD [address] [place] [address] 911 [place], [place] 908505 documented as of this encounter Visit Diagnoses Not on filedocumented in this encounter Care Teams Inspector Automatic Typewriter Relationship Specialty Start Date End Date Martina Strickland PA-C PCP - General Physician Mobile Sales Assistant 07/19/19 Ailin Zavala MD Internal Medicine 07/28/11 Amadeo King MD [address] [place] [address] 493 [place], [place] 382675 Ophthalmology 12/22/19 Joseph Trivedi MD [facility] [address] [facility] 215 [place], [place] 291675 Rheumatology 05/21/20 Rene Grant MD [address] [place] [address] 179335 Assigned Surgical Provider 09/12/22 documented as of this encounter
--- OUTSIDE RECORDS SUMMARY | 2024-01-05 11:22 | XMS_ITS | Encounter Summary ---
Author Organization [place] Address [address] [place] [address]36 Care Team Providers Care Chief Medical Director Name Role Phone Ailin Zavala MD Unavailable [phone] Martina Strickland PA-C Primary Care Provider Amadeo King MD Unavailable [phone] Claudia Marcus MD Unavailable [phone] Amadeo King MD Unavailable [phone] Joseph Trivedi MD Unavailable [phone] Claudia Marcus MD Unavailable [phone] [...] Encounter Details Date Type Department Care Team ([facility] Contact Info) Description 01/22/2020 Telephone [facility] [place] [id number] [facility] 9th [place] Clin 9A [place] [phone] Amadeo King MD [address] [phone] Medication Question Social History Tobacco Use Types [...] Robin Luu - 01/22/2020 1:39 PM CDT [facility] Call Center Phone Message May a detailed message be left on voicemail: yes Reason for Call: Medication Question or concern regarding medication Prescription Clarification Name of Medication: cyclosporine, combigan, prednisone eye drop Prescribing Provider: [facility] Pharmacy: [id number] [address] [facility] [address] [facility] What on the order needs clarification? Pt is running low. Cyclosporine should be sent to [facility] pharmacy. The other two rx should go to pharmacy above. Action Taken: Other: eye Travel Screening: Not Applicable documented in this encounter Plan of Treatment Upcoming Encounters Date Type Department Care Team ([facility] Contact Info) Description 01/17/2024 3:00 PM CDT Office Visit [facility] - [address] 9[facility] Clin 9A [place] [phone] Amadeo King MD [address] 233825 12/05/2024 3:00 PM CDT Office Visit [facility] Eye [facility] Emergency Department 516 [facility] 9 Fl Clin 9A [place] [phone] Emma Deshpande MD 516 [facility] [address] 911 [place], [place] 9[address] documented as of this encounter Visit Diagnoses Not on filedocumented in this encounter Care Teams Chief Medical Director Relationship Specialty Start Date End Date Martina Strickland PA-C PCP - General Physician Train Announcer 07/19/19 Ailin Zavala MD Internal Medicine 07/28/11 Amadeo King MD [address] [place] [address] Ophthalmology 12/22/19 Claudia Marcus MD [facility] EYE [facility] [address] [place] [address] Assigned Surgical Provider 03/01/20 05/25/20 Amadeo King MD [address] [place] [address] Assigned PCP 04/07/20 06/02/23 Joseph Trivedi MD [facility] [address] [facility] 215 [place] [address] Rheumatology 05/21/20 Claudia Marcus MD [facility] EYE [facility] [address] [place] [address] Assigned Surgical Provider 06/30/20 10/19/20 Emma Deshpande MD [address] [place] [address] [phone] Assigned Surgical Provider 05/26/20 06/29/20 Kishan Spain, OD [address] [place] [address] [phone] Assigned Surgical Provider 10/20/20 11/23/20 Emma Deshpande MD [address] [place] [address] [phone] Assigned Surgical Provider 11/24/20 12/07/20 Kishan Spain, OD [address] [place] [address] [phone] Assigned Surgical Provider 12/08/20 03/27/22 Emma Deshpande MD [address] [place] [address] [phone] Assigned Surgical Provider 03/28/22 04/03/22 Rene Grant MD [address] [place] [address] 117775 Assigned Surgical Provider 04/04/22 08/21/22 Amadeo Winston MD [address] [place] [address] 022595 Assigned Surgical Provider 08/22/22 08/28/22 Amadeo Winston MD [address] [place] [address] [phone] Assigned Surgical Provider 09/05/22 09/11/22 Rene Grant MD [address] [place] [address] [phone] Assigned Surgical Provider 08/29/22 09/04/22 Rene Grant MD [address] [place] [address] [phone] Assigned Surgical Provider 09/12/22 documented as of this encounter
--- OUTSIDE RECORDS SUMMARY | 2024-01-05 11:22 | XMS_ITS | Encounter Summary ---
Author Organization [place] Address [address] [place] [address]60 Care Team Providers Care Glass Ribbon Machine Operator Assistant Name Role Phone Ailin Zavala MD Unavailable [phone] Ailin Zavala MD Primary Care Provider Martina [...] Team (Late Contact Info) Description 11/18/[address] 9A [place] [address] Hailee Stone MD Social History Tobacco Use [...] Description 01/17/2024 3:00 PM CDT Office Visit [address] 9[facility] 9A [place] [address] Amadeo King MD [address] [place] [address] [facility] 493 [place] [address] 12/05/2024 3:00 PM CDT Office Visit [address] 9[facility] 9A [place] [address] Emma Deshpande MD 6 [facility] [address] 911 [place], [place] 318605 documented as of this encounter Visit Diagnoses Not on filedocumented in this encounter Care Teams Glass Ribbon Machine Operator Assistant Relationship Specialty Start Date End Date Ailin Zavala MD PCP - General Internal Medicine 07/28/11 07/18/19 Martina Strickland PA-C PCP - General Physician Market Research Coordinator 07/19/19 Ailin Zavala MD Internal Medicine 07/28/11 Amadeo King MD 420 [facility] 493 [place], [place] [address] Ophthalmology 12/22/19 Claudia Marcus MD [facility] EYE [facility] [address] [place] [phone] Assigned Surgical Provider 03/01/20 05/25/20 Amadeo King MD 420 [facility] 493 [place], [place] 958805 Assigned PCP 04/07/20 06/02/23 Joseph Trivedi MD [facility] [address] [facility] 215 [place], [place] 9[address] Rheumatology 05/21/20 Claudia Marcus MD [facility] EYE [facility] [address] [place] [phone] Assigned Surgical Provider 06/30/20 10/19/20 Emma Deshpande MD 516 [facility] 911 [place], [place] [phone] Assigned Surgical Provider 05/26/20 06/29/20 Kishan Spain, OD [address] [phone] Assigned Surgical Provider 10/20/20 11/23/20 Emma Deshpande MD [address] [place] [address]96 Assigned Surgical Provider 11/24/20 12/07/20 Kishan Spain, OD [address] [place] [address] [phone] Assigned Surgical Provider 12/08/20 03/27/22 Emma Deshpande MD [address] [place] [address] 59[address] Assigned Surgical Provider 03/28/22 04/03/22 Rene Grant MD [address] [place] [address] 62673 Assigned Surgical Provider 04/04/22 08/21/22 Amadeo Winston MD [address] [place] [address]14 Assigned Surgical Provider 08/22/22 08/28/22 Amadeo Winston MD [address] [place] [address] 6[address]16 Assigned Surgical Provider 09/05/22 09/11/22 Rene Grant MD [address] [place] [address] 99201 Assigned Surgical Provider 08/29/22 09/04/22 Rene Grant MD [address] [place] [address] 26419 Assigned Surgical Provider 09/12/22 documented as of this encounter
--- OUTSIDE RECORDS SUMMARY | 2024-01-05 11:22 | XMS_ITS | Encounter Summary ---
Author Organization [place] Address [address] [place] [address] Care Team Providers Care Laborer Egg Producing Farm Name Role Phone Ailin Zavala MD Unavailable [phone] Ailin Zavala MD Primary Care Provider Martina [...] st Contact Info) Description 04/25/[address] [facility] Eye [facility] 9 Ri Clin 9A [place] [phone] Candy Jett, DO 909 [place] [address] Prior Auth - Medication (CYCLOSPORINE 1% in [...] managed by the clinic staff and provider. ASST * Telephone Encounter - Amarilys Roberts - 05/18/2019 1:36 PM CST Insurance called for additional information. Answered and should receive an outcome by 05/19/18. Case# [id number] ASST * Telephone Encounter - Amarilys Roberts - 05/16/2019 1:19 PM CST Images from the original note were not included. Received addition form to fill out. Completed and faxed back with all original requests. ASST * Telephone Encounter - Amarilys Roberts - [...] suggest to re-fax to a different # [phone] (Benefit Coverage Review). According to the rep, the case has not been touched since the denial 05/08/19. Case # [id number].Re- faxed appeal again marked urgent. ASST * Telephone Encounter - Amarilys Roberts - 05/12/2019 12:22 PM CST Medication Appeal Initiation We have initiated an appeal for the requested medication: Medication: CYCLOSPORINE 1% in artificial tears- APPEAL Pending Appeal Start Date: 05/12/2019 Insurance Company: [employer] - Comments: Appeal letter faxed to [employer] [phone]. . ASST * Telephone Encounter - Amarilys Roberts - 05/08/2019 12:43 PM CST Images from the original note were not included. PRIOR AUTHORIZATION DENIED Medication: CYCLOSPORINE 1% in artificial tears- DENIED Denial Date: 05/08/2019 Denial Rational: Appeal Information: ASST * Telephone Encounter - Amarilys Roberts - 05/04/2019 11:24 AM CST Images from the original note were not included. Received message from insurance to have pharmacy run the main ingredient. Per pharmacy, previous NDC has been discontinued, therefore new NDC is requested to be covered. New NDC [address]-33. Old NDC [id number]. Called insurance to have new NDC put on formulary. Refaxed request back stating this. Rep was just going to fax over a new PA form, but we had already fax one in, just refaxing with new information. ASST * Telephone Encounter - Vesna Baca - 05/04/2019 10:59 AM CST Rec'd a call from Armando @ [facility] pharmacy inquiring on status of P/A. Advised of the below. ASST * Telephone Encounter - Amarilys Roberts - 05/02/2019 11:28 AM CST Manually faxed PA request to [facility]. ASST * Telephone Encounter - Amarilys Roberts - 04/25/2019 3:41 PM CST Images from the original note were not included. Central Prior Authorization Team PA Initiation Medication: CYCLOSPORINE 1% in artificial tears Insurance Company: [employer] - Pharmacy Filling the Rx: [id number] - [place], [place] - [address] AT [facility] [address] Filling Pharmacy Filling Pharmacy Fax: Start Date: 04/25/2019 ASST * Telephone Encounter - Martina Marcano - 04/25/2019 2:56 PM CST Images from the original note were not included. Medication is documented in the After Visit Summary under the media tab. ASST documented in this encounter Plan of Treatment Upcoming Encounters Date Type Department Care Team (Late st Contact Info) Description 01/17/2024 3:00 PM CDT Office Visit [facility] [place] [id number] [facility] 9[facility] Clin 9A [place] [address] Amadeo King MD 420 [facility] 493 [place], [place] [address] 12/05/2024 3:00 PM CDT Office Visit [facility] [address] 9[facility] 9A [place] [address] Emma Deshpande MD [address] [place] [address] 911 [place], [place] 6[address] documented as of this encounter Visit Diagnoses Not on filedocumented in this encounter Care Teams Laborer Egg Producing Farm Relationship Specialty Start Date End Date Ailin Zavala MD PCP - General Internal Medicine 07/28/11 07/18/19 Martina Strickland PA-C PCP - General Physician Electrolysist 07/19/19 Ailin Zavala MD Internal Medicine 07/28/11 Amadeo King MD [address] [place] [address] 493 [place], [place] [phone] Ophthalmology 12/22/19 Claudia Marcus MD [facility] [address] [place] [phone] Assigned Surgical Provider 03/01/20 05/25/20 Amadeo King MD 420 [facility] 493 [place], [place] [phone] Assigned PCP 04/07/20 06/02/23 Joseph Trivedi MD [facility] [address] [facility] 215 [place] [address] Rheumatology 05/21/20 Claudia Marcus MD [facility]YE [facility] [address] [place] [phone] Assigned Surgical Provider 06/30/20 10/19/20 Emma Deshpande MD [address] [place] [address] 911 [place] [address] Assigned Surgical Provider 05/26/20 06/29/20 Kishan Spain, ANDI [address] [place] [phone] Assigned Surgical Provider 10/20/20 11/23/20 Emma Deshpande MD 6 [facility] 911 [place], [place] [phone] Assigned Surgical Provider 11/24/20 12/07/20 Kishan Spain, OD [address] [place] [phone] Assigned Surgical Provider 12/08/20 03/27/22 Emma Deshpande MD [address] [place] [address] 911 [place] [address] Assigned Surgical Provider 03/28/22 04/03/22 Rene Grant MD [address] [place] [address] Assigned Surgical Provider 04/04/22 08/21/22 Amadeo Winston MD [address] [place] [address] Assigned Surgical Provider 08/22/22 08/28/22 Amadeo Winston MD [address] [place] [address] Assigned Surgical Provider 09/05/22 09/11/22 Rene Grant MD [address] [place] [address] Assigned Surgical Provider 08/29/22 09/04/22 Rene Grant MD [address] [place] [address] Assigned Surgical Provider 09/12/22 documented as of this encounter
--- OUTSIDE RECORDS SUMMARY | 2024-01-05 11:22 | XMS_ITS | Encounter Summary ---
Author Organization [place] Address [address] [place] [address] Care Team Providers Care Roller Billet Mill Name Role Phone Ailin Zavala MD Unavailable [phone] Ailin Zavala MD Primary Care Provider Martina [...] Team (Late Contact Info) Description 09/12/2018 Telephone [facility] [place] [id number] [facility] 9th [place] Clin 9A [place] [phone] None Referral Social History Tobacco Use Types [...] Demi Judge - 09/12/2018 8:20 AM CDT [facility] Phone Message May a detailed message be left on voicemail: yes Reason for Call: Other: 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 Lesa Llamas at [facility]. To be seen within the week and a corneal visitfor next week. Call to schedule, faxing notes Action Taken: Message routed to: [facility] documented in this encounter Plan of Treatment Upcoming Encounters Date Type Department Care Team (Late st Contact Info) Description 01/17/2024 3:00 PM CDT Office Visit [facility] [place] [address] 9th [facility] 9A [place] [phone] Amadeo King MD [address] [place] [address] 12/05/2024 3:00 PM CDT Office Visit [facility] [place] 292956 [facility] 9th Fl Clin 9A [place] [address] Emma Deshpande MD 516 [facility] 911 [place], [place] [address] documented as of this encounter Visit Diagnoses Not on filedocumented in this encounter Care Teams Roller Billet Mill Relationship Specialty Start Date End Date Ailin Zavala MD PCP - General Internal Medicine 07/28/11 07/18/19 Martina Strickland PA-C PCP - General Physician Animal Care Technician 07/19/19 Ailin Zavala MD Internal Medicine 07/28/11 Amadeo King MD 420 [facility] 493 [place], [place] [address] Ophthalmology 12/22/19 Claudia Marcus MD [facility] [address] [place] [address] Assigned Surgical Provider 03/01/20 05/25/20 Amadeo King MD 420 [facility] 493 [place], [place] 116025 Assigned PCP 04/07/20 06/02/23 Joseph Trivedi MD [facility] [address] [facility] 215 [place] [address] Rheumatology 05/21/20 Claudia Marcus MD [facility] [address] [place] [phone] Assigned Surgical Provider 06/30/20 10/19/20 Emma Deshpande MD [address] [place] [address] 442745 Assigned Surgical Provider 05/26/20 06/29/20 Kishan Spain, OD [address] [place] [address] Assigned Surgical Provider 10/20/20 11/23/20 Emma Deshpande MD [address] [place] [address] 155415 Assigned Surgical Provider 11/24/20 12/07/20 Kishan Spain, OD [address] [place] [phone] Assigned Surgical Provider 12/08/20 03/27/22 Emma Deshpande MD [address] [place] [address] 311305 Assigned Surgical Provider 03/28/22 04/03/22 Rene Grant MD [address] [place] [address] 457605 Assigned Surgical Provider 04/04/22 08/21/22 Amadeo Winston MD [address] [place] [address] Assigned Surgical Provider 08/22/22 08/28/22 Amadeo Winston MD [address] [place] [address] Assigned Surgical Provider 09/05/22 09/11/22 Rene Grant MD [address] [place] [address] Assigned Surgical Provider 08/29/22 09/04/22 Rene Grant MD [address] [place] [address] 270505 Assigned Surgical Provider 09/12/22 documented as of this encounter
--- OUTSIDE RECORDS SUMMARY | 2024-01-05 11:22 | XMS_ITS | Encounter Summary ---
Author Organization [place] Address [address] [place] [address] Care Team Providers Care Youth Development Professional Name Role Phone Ailin Zavala MD Unavailable [phone] Martina Strickland PA-C Primary Care Provider Amadeo King MD Unavailable + [phone] Claudia Marcus MD Unavailable [phone] Amadeo King MD Unavailable [phone] Joseph Trivedi MD Unavailable [phone] Claudia Marcus MD Unavailable [phone] [...] Contact Info) Description 03/27/2020 My[facility] Medical Advice [address] [address] Jessica Chisholm, RN Social History Tobacco Use [...] COVID-19? No / Unsure 03/13/2020 2:59 PM JACKERMAN documented as of this encounter Plan of Treatment Upcoming Encounters Date Type Department Care Team (Late st Contact Info) Description 01/17/2024 3:00 PM CDT Office Visit [facility] [place] 197646 [facility] 9th [facility] 9A [place] [address] Amadeo King MD 420 [facility] 493 [place], [place] [address] 12/05/2024 3:00 PM CDT Office Visit [facility] [place] 197646 [facility] 9th [facility] 9A [place] [address] Emma Deshpande MD 516 [facility] 911 [place], [place] 739[address] documented as of this encounter Visit Diagnoses Not on filedocumented in this encounter Care Teams Youth Development Professional Relationship Specialty Start Date End Date Martina Strickland PA-C PCP - General Physician Home Health Physical Therapist 07/19/19 Ailin Zavala MD Internal Medicine 07/28/11 Amadeo King MD [address] 734225 Ophthalmology 12/22/19 Claudia Marcus MD [facility] E[facility] [address] [place] [phone] Assigned Surgical Provider 03/01/20 05/25/20 Amadeo King MD [address] [phone] Assigned PCP 04/07/20 06/02/23 Joseph Trivedi MD [facility] [address] [facility] 215 [place] [address] Rheumatology 05/21/20 Claudia Marcus MD [facility] EYE [facility] [address] [place] [address] Assigned Surgical Provider 06/30/20 10/19/20 Emma Deshpande MD 6 [facility] 911 [place], [place] [address]169[address] Assigned Surgical Provider 05/26/20 06/29/20 Kishan Spain OD 9 [facility] 4th [place] [phone] Assigned Surgical Provider 10/20/20 11/23/20 Emma Deshpande MD [address] [place] [address] Assigned Surgical Provider 11/24/20 12/07/20 Kishan Spain [address] [place] [address] 4th [place] [phone] Assigned Surgical Provider 12/08/20 03/27/22 Emma Deshpande MD [address] [place] [address] Assigned Surgical Provider 03/28/22 04/03/22 Rene Grant MD [address] [place] [address] Assigned Surgical Provider 04/04/22 08/21/22 Amadeo Winston MD [address] [place] [address] Assigned Surgical Provider 08/22/22 08/28/22 Amadeo Winston MD [address] [place] [address] Assigned Surgical Provider 09/05/22 09/11/22 Rene Grant MD [address] [place] [address] Assigned Surgical Provider 08/29/22 09/04/22 Rene Grant MD 6 [place] [address] Assigned Surgical Provider 09/12/22 documented as of this encounter
--- OUTSIDE RECORDS SUMMARY | 2024-01-05 11:22 | XMS_ITS | Encounter Summary ---
Author Organization [place] Address [address] [place] [address] Care Team Providers Care Shoer Name Role Phone Ailin Zavala MD Unavailable [phone] Martina Strickland PA-C Primary Care Provider Amadeo King MD Unavailable + [phone] Claudia Marcus MD Unavailable [phone] Amadeo King MD Unavailable [phone] Joseph Trivedi MD Unavailable [phone] Claudia Marcus MD Unavailable [phone] [...] Team (Late Contact Info) Description 11/27/2019 Telephone [facility] 516 [facility] 9th Fl Clin 9A [place] [phone] Amadeo King MD 420 [facility] 493 [place], [place] [address] Appointment (Appt with Dr King) Social History [...] Tania Marin - 11/27/2019 8:58 AM CDT [facility] Call Center Phone Message May a detailed [...] Description 01/17/2024 3:00 PM CDT Office Visit [facility] [address] 9th Fl Clin 9A [place] [phone] Amadeo King MD 420 [facility] 493 [place] [address] 12/05/2024 3:00 PM CDT Office Visit [facility] [address] 9th Fl Clin 9A [place] [phone] Emma Deshpande MD 516 [facility] 911 [place], [place] [address] documented as of this encounter Visit Diagnoses Not on filedocumented in this encounter Care Teams Shoer Relationship Specialty Start Date End Date Martina Strickland PA-C PCP - General Physician Asphalt Plant Laborer 07/19/19 Ailin Zavala MD Internal Medicine 07/28/11 Amadeo King MD [address] [place] [address] Ophthalmology 12/22/19 Claudia Marcus MD [facility] [address] [place] [phone] Assigned Surgical Provider 03/01/20 05/25/20 Amadeo King MD [address] [place] [address] 493 [place] [address] Assigned PCP 04/07/20 06/02/23 Joseph Trivedi MD [facility] [address] [facility] 215 [place] [address] Rheumatology 05/21/20 Claudia Marcus MD [facility] [address] [place] [phone] Assigned Surgical Provider 06/30/20 10/19/20 Emma Deshpande MD [address] [place] [address] 088915 Assigned Surgical Provider 05/26/20 06/29/20 Kishan Spain, OD [address] [place] [phone] Assigned Surgical Provider 10/20/20 11/23/20 Emma Deshpande MD [address] [place] [address] Assigned Surgical Provider 11/24/20 12/07/20 Kishan Spain, OD [address] [place] [phone] Assigned Surgical Provider 12/08/20 03/27/22 Emma Deshpande MD [address] [place] [address] 460925 Assigned Surgical Provider 03/28/22 04/03/22 Rene Grant MD [address] [place] [address] [place] [address] Assigned Surgical Provider 04/04/22 08/21/22 Amadeo Winston MD [address] [place] [address] Assigned Surgical Provider 08/22/22 08/28/22 Amadeo Winston MD [address] [place] [address] Assigned Surgical Provider 09/05/22 09/11/22 Rene Grant MD [address] [place] [address]655 Assigned Surgical Provider 08/29/22 09/04/22 Rene Grant MD [address] [place] [address] Assigned Surgical Provider 09/12/22 documented as of this encounter
--- OUTSIDE RECORDS SUMMARY | 2024-01-05 11:22 | XMS_ITS | Encounter Summary ---
Author Organization [place] Address [address] [place] [address] Care Team Providers Care Employment Attorney Name Role Phone Ailin Zavala MD Unavailable [phone] Ailin Zavala MD Primary Care Provider Martina [...] (Late st Contact Info) Description 03/27/2019 Telephone [facility] [place] 895886 [facility] 9th [place] Clin 9A [place] [address] Amadeo King MD [address] [address] Call Back (recovery time for upcoming surgery) [...] Chayo Robbins - 03/27/2019 3:58 PM CST [facility] Phone Message May a detailed message be left on voicemail: yes Reason for Call: Other: Paula calling to find out what the recovery time is going to be after her surgery. She is needing this information for her work. Please call her back to discuss Action Taken: Message routed to: [facility] Eye N RESOURCES OPERATIONS SPECIALIST documented in this encounter Plan of Treatment Upcoming Encounters Date Type Department Care Team (Late st Contact Info) Description 01/17/2024 3:00 PM CDT Office Visit [facility] [place] 895886 [facility] 9[facility] 9A [place] [address] Amadeo King MD [address] [place] [address] 12/05/2024 3:00 PM CDT Office Visit [facility] 516 [facility] 9th Fl Clin 9A [place] [address] Emma Deshpande MD 516 [facility] 911 [place], [place] [address] documented as of this encounter Visit Diagnoses Not on filedocumented in this encounter Care Teams Employment Attorney Relationship Specialty Start Date End Date Ailin Zavala MD PCP - General Internal Medicine 07/28/11 07/18/19 Martina Strickland PA-C PCP - General Physician Roller Coaster Designer 07/19/19 Ailin Zavala MD Internal Medicine 07/28/11 Amadeo King MD [address] [place] [address] Ophthalmology 12/22/19 Claudia Marcus MD [facility] EYE [facility] [address] [place] [address] Assigned Surgical Provider 03/01/20 05/25/20 Amadeo King MD [address] [place] [address]92 Assigned PCP 04/07/20 06/02/23 Joseph Trivedi MD [facility] [address] [facility] 215 [place] [address] Rheumatology 05/21/20 Claudia Marcus MD [facility] EYE [facility] [address] [place] [phone] Assigned Surgical Provider 06/30/20 10/19/20 Emma Deshpande MD [address] [place] [address] [phone] Assigned Surgical Provider 05/26/20 06/29/20 Kishan Spain, OD [address] [place] [phone] Assigned Surgical Provider 10/20/20 11/23/20 Emma Deshpande MD [address] [place] [address] 359365 Assigned Surgical Provider 11/24/20 12/07/20 Kishan Spain, OD [address] [place] [address] [phone] Assigned Surgical Provider 12/08/20 03/27/22 Emma Deshpande MD [address] [place] [address] [phone] Assigned Surgical Provider 03/28/22 04/03/22 Rene Grant MD [address] [place] [address] Assigned Surgical Provider 04/04/22 08/21/22 Amadeo Winston MD [address] [place] [address]219 Assigned Surgical Provider 08/22/22 08/28/22 Amadeo Winston MD [address] [place] [address] 21457 Assigned Surgical Provider 09/05/22 09/11/22 Rene Grant MD [address] [place] [address]61 Assigned Surgical Provider 08/29/22 09/04/22 Rene Grant MD [address] [place] [address] 20131 Assigned Surgical Provider 09/12/22 documented as of this encounter
--- OUTSIDE RECORDS SUMMARY | 2024-01-05 11:22 | XMS_ITS | Encounter Summary ---
Author Organization [facility] Address [address] [place] [address] Care Team Providers Care Acid Bath Mixer Name Role Phone Ailin Zavala MD Unavailable [phone] Martina Strickland PA-C Primary Care Provider Amadeo King MD Unavailable [phone] Amadeo King MD Unavailable [phone] Joseph Trivedi MD Unavailable [phone] Claudia Marcus MD Unavailable [phone] Kishan Spain OD Unavailable [phone] Emma [...] st Contact Info) Description 08/28/2020 Refill M [facility] Eye [facility] 516 [facility] 9th Fl Clin 9A [place] [address] Amadeo King MD 420 [facility] 493 [place], [place] [address] Refill Request (mycophenolate (GENERIC EQUIVALENT) 250 MG [...] who prescribed the medication: Dr. King Pharmacy: [id number] [place], [place] - [address] AT [facility] [address] Date medication [...] CDT Office Visit [facility] [place] [address]136 [facility] 9A [place] [address] Amadeo King MD 420 [facility] 493 [place] [address] 12/05/2024 3:00 PM CDT Office Visit [facility] 516 [facility] 9th Va Clin 9A [place] [address] Emma Deshpande MD [address] [place] [address] [address] [place], [place] 5224[address] documented as of this encounter Visit Diagnoses Diagnosis 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 documented in this encounter Care Teams Acid Bath Mixer Relationship Specialty Start Date End Date LyMartina moncada PA-C PCP - General Physician Oracle Reports Developer 07/19/19 Ailin Zavala MD Internal Medicine 07/28/11 Amadeo King MD 420 [facility] 493 [place], [place] 12[address] Ophthalmology 12/22/19 Amadeo King MD [address] 972845 Assigned PCP 04/07/20 06/02/23 Joseph Trivedi MD [facility] [address] [facility] 215 [place] [address] Rheumatology 05/21/20 Claudia Marcus MD [facility] EYE [facility] 6533 [place] [address] Assigned Surgical Provider 06/30/20 10/19/20 Kishan Spain, OD [address] [place] [address] 4th [place] [address] Assigned Surgical Provider 10/20/20 11/23/20 Emma Deshpande MD 6 [facility] 911 [place], [place] 679[address] Assigned Surgical Provider 11/24/20 12/07/20 Kishan Spain, OD [facility] 4th [place] [address] Assigned Surgical Provider 12/08/20 03/27/22 Emma Deshpande MD 516 [facility] 911 [place], [place] 8[address]65 Assigned Surgical Provider 03/28/22 04/03/22 Rene Grant MD [address] [place] [address] 588205 Assigned Surgical Provider 04/04/22 08/21/22 Amadeo Winston MD 420 [place], [place] [address] Assigned Surgical Provider 08/22/22 08/28/22 Amadeo Winston MD 420 [place], [place] 6[address]255 Assigned Surgical Provider 09/05/22 09/11/22 Rene Grant MD [address] [place] [address] Assigned Surgical Provider 08/29/22 09/04/22 Rene Grant MD [address] [place] [address] Assigned Surgical Provider 09/12/22 documented as of this encounter
--- OUTSIDE RECORDS SUMMARY | 2024-01-06 11:43 | XMS_ITS | Encounter Summary ---
Author Organization [place] Address [address] [place] [address]. [place] [address] Care Team Providers Care Event Specialist Name Role Phone Ailin Zavala MD Unavailable [phone] Martina Strickland PA-C Primary Care Provider Amadeo King MD Unavailable [phone] Joseph Trivedi MD Unavailable [phone] Rene Grant MD Unavailable [phone] Encounter Details Date Type Department Care Team [...] Description 01/17/2024 3:00 PM CDT Office Visit [facility] Eye [address] 9 Me Clin 9A [place] [address] Amadeo King MD 420 [facility] 493 [place] [address] 12/05/2024 3:00 PM CDT Office Visit [facility] Eye [facility] 516 [facility] 9th Fl Clin 9A [place] [address] Emma Deshpande MD 516 [facility] [address] [place] [address] documented as of this encounter Visit Diagnoses Not on filedocumented in this encounter Care Teams Event Specialist Relationship Specialty Start Date End Date Martina Strickland PA-C PCP - General Physician Enterprise Data Architect 07/19/19 Ailin Zavala MD Internal Medicine 07/28/11 Amadeo King MD [address] [place] [address]8715 Ophthalmology 12/22/19 Joseph Trivedi MD [facility] [address] [facility] 215 [place], [place] [address] Rheumatology 05/21/20 Rene Grant MD [address] [place] [address] 915145 Assigned Surgical Provider 09/12/22 documented as of this encounter
--- OUTSIDE RECORDS SUMMARY | 2024-01-06 11:43 | XMS_ITS | Encounter Summary ---
Author Organization [place] Address [address] [place] [address] Care Team Providers Care Meal Attendant Name Role Phone Ailin Zavala MD Unavailable [phone] Martina Strickland PA-C Primary Care Provider Amadeo King MD Unavailable [phone] Joseph Trivedi MD Unavailable [phone] Rene Grant MD Unavailable [phone] Encounter Details Date Type Department Care Team (Late st Contact Info) Description 12/03/2023 MyC Medical Advice [place] [address]289 [place] [address] Kristyn Pastrana, JENNIFER Glaucoma due [...] Description 01/17/2024 3:00 PM CDT Office Visit [facility] Emergency Department 516 [facility] 9th Ms Clin 9A [place] [address] Amadeo King MD 420 [facility] 493 [place] [address] 12/05/2024 3:00 PM CDT Office Visit [facility] Emergency Department 516 [facility] 9th Ms Clin 9A [place] [address] Emma Deshpande MD 6 [facility] [address] 911 [place], [place] 6[address] documented as of this encounter Visit Diagnoses 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
--- OUTSIDE RECORDS SUMMARY | 2024-01-06 11:43 | XMS_ITS | Encounter Summary ---
Author Organization [facility] Address [address] [place] [address] Care Team Providers Care Event Planning Intern Name Role Phone Ailin Zavala MD Unavailable [phone] Martina Strickland PA-C Primary Care Provider Amadeo King MD Unavailable [phone] Joseph Trivedi MD Unavailable [phone] Rene Grant MD Unavailable [phone] Reason for Visit * Reason Onset Date Comments Refill Request 12/03/2023 prednisoLONE dick benitez (PRED FORTE) 1 % ophthalmic suspension Encounter Details Date Type Department Care Team (Late st Contact Info) Description 12/03/2023 Refill [facility] Eye [address] 9 [facility] 9A [place] [address] Rene Grant MD [address] [place] [address] [id number] Refill Request (prednisoLONE acetate (PRED FORTE) 1 [...] Right Eye Last Office Visit : 11/29/2023 [facility] Eye [facility] Future Office visit: 12/07/2023 3:10 PM [...] a script for 5ml, please send to: [id number] - [place], [place] - [address] AT [place] [address] & [facility] * Telephone Encounter - Daniella Jimenes - 12/03/2023 4:20 PM CDT [facility] Call Center Phone Message May a detailed message be left on voicemail: yes Reason for Call: Medication Refill Request Has the patient contacted the pharmacy for the refill? Yes Name of medication being requested: prednisoLONE acetate (PRED FORTE) 1 % ophthalmic suspension Provider who prescribed the medication: [facility] Pharmacy: [facility] - [address] Date medication is needed: JOSE MANUEL Patient aware of end of day and typical turn around. She was wondering if a temporary script for 5 ml could be sent sooner as she states mail order takes atleast a week to send to her. If able to send a script for 5ml, please send to: [facility][id number] - [place], [place] - [address] AT [place] [address] & [facility] Action Taken: Message routed to: [facility] Eye Travel Screening: Not Applicable documented in this encounter Plan of Treatment Upcoming Encounters Date Type Department Care Team (Late st Contact Info) Description 01/17/2024 3:00 PM CDT Office Visit [facility] - [place] 405246 [facility] 9[facility] 9A [place] [phone] Amadeo King MD [address] [place] [address]87385 12/05/2024 3:00 PM CDT Office Visit [facility] Eye [facility] [place] 405246 [facility] 9th [facility] 9A [place] [address] Emma Deshpande MD [address] [place] [address] 911 [place], [place] [address] documented as of this encounter Visit Diagnoses Diagnosis 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
--- OUTSIDE RECORDS SUMMARY | 2024-01-06 11:43 | XMS_ITS | Encounter Summary ---
Author Organization [place] Address [address] [place] [address] Care Team Providers Care Deputy Sheriff Generalist Name Role Phone Ailin Zavala MD Unavailable [phone] Martina Strickland PA-C Primary Care Provider Amadeo King MD Unavailable [phone] Joseph Trivedi MD Unavailable [phone] Rene Grant MD Unavailable [phone] Reason for Visit * Reason Comments Follow Up # s/p multiple PKP O D Encounter Details Date Type Department Care Team (Late st Contact Info) Description 12/20/2023 9:15 AM CDT Office Visit [facility] Eye [address] 9[facility] Clin 9A [place] [address] Rene Grant MD [address] [place] [address] Post corneal transplant (Primary Dx); Limbal stem [...] [place]) DM s -- was following at [facility] with Dr. Llamas h/o Aqueous Misdirection [...] Office Visit [facility] Eye [facility] 516 [facility] 9th Fl Clin 9A [place] [address] Amadeo King MD 420 [facility] 493 [place] [address] 12/05/2024 3:00 PM CDT Office Visit [facility] Eye [facility] 516 [facility] 9th Fl Clin 9A [place] [address] Emma Deshpande MD 516 [facility] [address] 911 [place], [place] [address] documented as of this encounter Visit Diagnoses Diagnosis 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
--- OUTSIDE RECORDS SUMMARY | 2024-01-06 11:43 | XMS_ITS | Encounter Summary ---
Author Organization [place] Address [address] [place] [address]. [place] [address] Care Team Providers Care Seat Maker Name Role Phone Ailin Zavala MD Unavailable [phone] Martina Strickland PA-C Primary Care Provider Amadeo King MD Unavailable [phone] Joseph Trivedi MD Unavailable [phone] Rene Grant MD Unavailable [phone] Encounter Details Date Type Department Care [...] CDT Office Visit [facility] Eye [address] 9 Oh Clin 9A [place] [address] Amadeo King MD 420 [facility] 493 [place] [address] 12/05/2024 3:00 PM CDT Office Visit [facility] Eye [facility] 516 [facility] 9th Fl Clin 9A [place] [address] Emma Deshpande MD 516 [facility] [address] 911 [place] [address] documented as of this encounter Visit Diagnoses Not on filedocumented in this encounter Care Teams Seat Maker Relationship Specialty Start Date End Date Martina Strickland PA-C PCP - General Physician Gas Welder 07/19/19 Ailin Zavala MD Internal Medicine 07/28/11 Amadeo King MD [address] [place] [address]325 Ophthalmology 12/22/19 Joseph Trivedi MD [facility] [address] [facility] 215 [place], [place] [address] Rheumatology 05/21/20 Rene Grant MD [address] [place] [address]115 Assigned Surgical Provider 09/12/22 documented as of this encounter
--- OUTSIDE RECORDS SUMMARY | 2024-01-06 11:43 | XMS_ITS | Clinical Summary ---
Author Organization [place] Address [address] [place] [address] Care Team Providers Care Head Of Strategy Name Role Phone Ailin Zavala MD Unavailable Martina Strickland PA-C Primary Care Provider Amadeo King MD Unavailable [phone] Joseph Trivedi MD Unavailable [phone] Rene Grant MD Unavailable [phone] Allergies Active Allergy Reactions Criticality Noted Date Comments Lidocaine Other (See Comments) 07/22/2011 can Other reaction(s): Get the [employer] Medications Medication Sig Dispensed Refills Start Date [...] Description 12/20/2023 9:15 AM CDT Office Visit [facility] [address] Clin 9A [place] [address] Rene Grant MD Post corneal transplant (Primary Dx); 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; Dry eye syndrome of both eyes 12/20/2023 Travel 12/19/2023 Travel 12/14/2023 Refill [facility] [address] Clin 9A [place] [address] Malorie Padron MD Refill Request 12/07/2023 3:10 PM CDT Office Visit [address] [address] Emma Deshpande MD Epiretinal membrane (ERM) of right eye 12/07/2023 Travel 12/06/2023 Travel 12/03/2023 MyC Medical Advice [facility] 909 [place] [phone] Kristyn Pastrana RN 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 12/03/[address] [address] Rene Grant MD Refill Request (prednisoLONE acetate (PRED FORTE) 1 % ophthalmic suspension) 11/29/2023 2:15 PM CDT Office Visit [address] [address] Rene Grant MD 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); Post corneal transplant; Persistent epithelial defect of right cornea 11/28/2023 Travel 11/24/2023 Orders Only [address] [address] Emma Deshpande MD Epiretinal membrane (ERM) of right eye (Primary Dx) 11/08/2023 3:00 PM CDT Office Visit [address] [address] Amadeo King MD Sattarova, Victoria, MD Post corneal transplant (Primary Dx); 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; Central corneal ulcer of right eye 11/08/2023 Travel 11/07/2023 Travel 10/25/2023 3:00 PM CDT Office Visit [facility] [address] [facility] 9A [place] [address] Amadeo King MD Persistent epithelial defect of [...] Description 01/17/2024 3:00 PM CDT Office Visit [facility] 516 [facility] 9th Fl Clin 9A [place] [address] Amadeo King MD 420 [facility] 493 [place], [place] [address] 12/05/2024 3:00 PM CDT Office Visit [facility] 516 [facility] 9th Fl Clin 9A [place] [address] Emma Deshpande MD 516 [facility] [address] 911 [place], [place] [address] Health Maintenance Due Date Last Done Comments [...] CDT) TSH 14.50(H) 0.4 - 5.0 mU/L [facility] Blood specimen (specimen) 07/22/2011 8:00 AM CDT 07/22/2011 8:14 AM CDT Yesenia Gomez MD LAB - BLOOD O RDERABLES [facility] * Basic metabolic panel (07/22/2011 8:00 AM CDT) Sodium 138 133 - 144 mmol/L [facility] Potassium 4.2 3.4 - 5.3 mmol/L [facility] Chloride 107 94 - 109 mmol/L [facility] Carbon Dioxide 23 20 - 32 mmol/L [facility] Anion Gap 9 6 - 17 mmol/L [facility] Glucose 94 60 - 99 mg/dL [facility] Urea Nitrogen 14 5 - 24 mg/dL [facility] Creatinine 0.68 0.52 - 1.04 mg/dL [facility] GFR Estimate >90 >60 mL/min/1.7 m2 [facility] GFR Estimate If Black >90 >60 mL/min/1.7 m2 [facility] Calcium 9.1 8.5 - 10.4 mg/dL [facility] Blood specimen (specimen) 07/22/2011 8:00 AM CDT 07/22/2011 8:14 AM CDT Yesenia Gomez MD LAB - BLOOD O RDERABLES [facility] from Last 3 Months or Most Recently Relevant to Health Maintenance Care Teams Head Of Strategy Relationship Specialty Start Date End Date Martina Strickland PA-C PCP - General Physician Architectural Administrative Assistant 07/19/19 Ailin Zavala MD Internal Medicine 07/28/11 Amadeo King MD [address] [address] Ophthalmology 12/22/19 Joseph Trivedi MD [facility] [address] [address] Rheumatology 05/21/20 Rene Grant MD 6 [place] [address] Assigned Surgical Provider 09/12/22
--- OUTSIDE RECORDS SUMMARY | 2024-01-06 11:43 | XMS_ITS | Continuity of Care Document ---
Author Organization [facility] Address [address] [facility] [address] [place] [address] Phone Care Team Providers Care Fat Pressroom Worker Name Role Phone Farooq RAGLAND Joseph Unavailable Unavailable Allergies, Adverse Reactions, Alerts Substance [...] , [address], [place], [address], [place] tel:[phone] [facility] , Corneal transplant monitor Chronic High Risk Meds (chief complaint) Unspecified complication of corneal transplant, right eyeUnspecifi ed pterygium of right eyeUnspecifi ed complication of corneal transplantOt her intermediate project manager (current) drug therapy 1 Farooq Ruiz. [facility] [address], [place], [address], [place]. tel:[phone] Referring Provider: Joseph Martin, [facility] [address], [place], [address]. tel:[phone] Office/Outpa tient Visit, Est [facility] , [address], [place], [address], [place] tel:[phone] [facility] , Corneal transplant monitor Chronic High Risk Meds (chief complaint) Unspecified pterygium of right eyeUnspecifi ed complication of corneal transplantOt her usp (current) drug therapyUnspe cified complication of corneal transplant, right eye 1 Farooq Ruiz. [facility] [address], [place], [address], [place]. tel:[phone] Referring Provider: Joseph Martin, [facility] [address], [place], [address]. tel:[phone] Office/Outpa tient Visit, Est [facility] , [address], [place], [address], [place] tel:[phone] [facility] , Unspecified pterygium of right eyeUnspecifi ed complication of corneal transplantOt her usp (current) drug therapy 0 Fraooq Ruiz. [facility] [address], [place], [address], [place]. tel:[phone] Referring Provider: Joseph Martin, [facility] [address], [place], [address]. tel:[phone] Office/Outpa tient Visit, Est [facility] , [address], [place], [address], [place] tel:[phone] [facility] , Unspecified pterygium of right eyeUnspecifi ed complication of corneal transplantOt her usp (current) drug therapy 0 Farooq Ruiz. [facility] [address], [place], [address], [place]. tel:[phone] Specialist: Amadeo King, [facility] 420 [facility] 727, [place], [address]. tel:[phone] ng Provider: Joseph Martin, [facility] [address], [place], [address]. tel:[phone] Office/Outpa tient Visit, Est [facility] , [address], [place], [address], [place] tel:[phone] [facility] , Unspecified pterygium of right eyeUnspecifi ed complication of corneal transplantOt her usp (current) drug therapy 9 Farooq Ruiz. [facility] [address], [place], [address], [place]. tel:[phone] Specialist: Amadeo King, [facility] 420 [facility] 727, [place], [address]. tel:[phone] ng Provider: Joseph Martin, [facility] [address], [place], [address]. tel:[phone] Office/Outpa tient Visit, New [facility] , [address], [place], [address], [place] tel:[phone] [facility] , Unspecified complication of corneal transplantUn specified pterygium of right eyeOther intermediate project manager (current) drug therapy 9 Farooq Ruiz. [facility] [address], [place], [address], [place]. tel:[phone] Referring Provider: Joseph Martin, [facility] [address], [place], [address]. tel:[phone] Family History Family Member Type Diagnosis Age At Onset Mother Problem (finding) Arthritis Immunizations Vaccine Date Status Comments COVID-19 Pfizer administered Source: Otdean r Provider COVID-19 Pfizer administered Source: Othe r Provider Payers Payer name Insurance type Covered democrat ID Authoriza tion(s) [employer] CI [id number] Social History Type Description Quantity Date Captured [...] complication of corn eal transplant assessment Other usp (current) drug t herapy Mental Status Date Cognitive Assessment Orientation - Alviso ed to time, place, person, situation. Patient Care Teams Name Effective Dates (start - stop) Status Members No Information
--- OUTSIDE RECORDS SUMMARY | 2024-01-06 11:43 | XMS_ITS | Encounter Summary ---
Author Organization [facility] Address [address] [place] [address] Care Team Providers Care Biomedical Engineering Technician Name Role Phone Ailin Zavala MD Unavailable [phone] Martina Strcikland PA-C Primary Care Provider Amadeo King MD Unavailable [phone] Joseph Trivedi MD Unavailable [phone] Rnee Grant MD Unavailable [phone] Reason for Visit * Reason Comments Follow Up Epiretinal membrane Encounter Details Date Type Department Care Team (Late st Contact Info) Description 12/07/2023 3:10 PM CDT Office Visit [facility] Eye [place] [address] [facility] 9th Vt Clin 9A [place] [address] Emma Deshpande MD [address] [place] [address] 911 [place] [address] Epiretinal membrane (ERM) of right eye Social [...] patient and family Emma Deshpande MD, PhD Cigarette Inspector, Vitreoretinal Surgery Department of Ophthalmology [facility] documented in this encounter Plan of Treatment Upcoming Encounters Date Type Department Care Team (Late st Contact Info) Description 01/17/2024 3:00 PM CDT Office Visit [facility] - [facility] 516 [facility] 9th [facility] 9A [place] [address] Amadeo King MD 420 [facility] 493 [place] [address] 12/05/2024 3:00 PM CDT Office Visit [facility] - [facility] 516 [facility] 9th [facility] 9A [place] [address] Emma Deshpande MD 516 [facility] 911 [place] [address] documented as of this encounter Procedures Procedure [...] eye documented in this encounter Care Teams Biomedical Engineering Technician Relationship Specialty Start Date End Date Martina Strickland PA-C PCP - General Physician Community Outreach Director 07/19/19 Ailin Zavala MD Internal Medicine 07/28/11 Amadeo King MD [address] [phone] Ophthalmology 12/22/19 oJseph Trivedi MD [facility] [address] [place], [place] [address] Rheumatology 05/21/20 Rene Grant MD 516 [place], [place] [phone] Assigned Surgical Provider 09/12/22 documented as of this encounter
--- OUTSIDE RECORDS SUMMARY | 2024-01-06 11:43 | XMS_ITS | Encounter Summary ---
Author Organization [employer] Address [address] [place] [address]. [place] [address] Care Team Providers Care Movement Education Specialist Name Role Phone Ailin Zavala MD Unavailable [phone] Martina Strickland PA-C Primary Care Provider Amadeo King MD Unavailable [phone] Joseph Trivedi MD Unavailable [phone] Rene Grant MD Unavailable [phone] Encounter Details Date Type Department Care [...] CDT Office Visit [facility] Eye [address] 9 [place] Clin 9A [place] [address] Amadeo King MD 420 [facility] 493 [place] [address] 12/05/2024 3:00 PM CDT Office Visit [facility] Eye [facility] 516 [facility] 9th Fl Clin 9A [place] [address] Emma Deshpande MD 516 [facility] [address] 911 [place] [address] documented as of this encounter Visit Diagnoses Not on filedocumented in this encounter Care Teams Movement Education Specialist Relationship Specialty Start Date End Date Martina Strickland PA-C PCP - General Physician Felt Pad Cutter 07/19/19 Ailin Zavala MD Internal Medicine 07/28/11 Amadeo King MD [address] [place] [address] Ophthalmology 12/22/19 Joseph Trivedi MD [facility] [address] [facility] 215 [place], [place] [address] Rheumatology 05/21/20 Rene Grant MD [address] [place] [address] Assigned Surgical Provider 09/12/22 documented as of this encounter
--- OUTSIDE RECORDS SUMMARY | 2024-01-06 11:43 | XMS_ITS | Clinical Summary ---
Author Organization [facility] [employer] [facility] Address [place], [place] [address] Care Team Providers Care Gallery Or Museum Guide Name Role Phone Martina Strickland PA-C Primary Care Provider [phone] Allergies Active Allergy Reactions Criticality Noted Date [...] daily with meals. Active medication order composer [place] oil 1000 mg daily Active UBIDECARENONE (COQ-10 [...] Comments Blood Pressure 123/75 04/18/2019 2:56 PM DIRECTOR PATIENT FINANCIAL SERVICES Pulse 102 04/18/2019 2:56 PM DIRECTOR PATIENT FINANCIAL SERVICES Temperature 35.7 ??C (96.3 ??F) 04/18/2019 12:[address] Respiratory Rate 16 04/18/2019 2:56 PM DIRECTOR PATIENT FINANCIAL SERVICES Oxygen Saturation 94% 04/18/2019 2:56 PM DIRECTOR PATIENT FINANCIAL SERVICES Inhaled Oxygen Concentration - - Weight 110.8 kg (244 lb 3 oz) 04/17/2019 12:09 P M DIRECTOR PATIENT FINANCIAL SERVICES Height 161 cm (5' 3.39) 04/17/2019 12:09 PM DIRECTOR PATIENT FINANCIAL SERVICES Body Mass Index 42.73 04/17/2019 12:09 PM DIRECTOR PATIENT FINANCIAL SERVICES Plan of Treatment Health Maintenance Due Date [...] this topic Medical Devices Implanted Type Area Nurse Practitioner Device Identifier Shelf Expiration Date Model / Serial / Lot Cornea [facility] Eye - [id number] Implanted:Qty: 1 on 07/05/2017 by Ronni Horton MD at [facility] Right: Eye [facility] Eye Bank 07/09/2017 CORNEA#18- [id number]-OD-C / [id number] -C / Allograft 3.5x3.5cm F Amniograft - [id number] Implanted:Qty: 1 on 07/05/2017 by Rogelio Galvan MD at [facility] Right: Eye [employer] 02/02/2019 [id number]# / [id number] / Description:[id number] SERIAL NUMBER Plate Glaucoma Valve Flex Ahmed Silcn - [id number] Implanted:Qty: 1 on 09/30/2018 by Claudia Marcus MD at [facility] Right: Eye [employer] 08/14/2020 FP7# / [id number] / [id number] Cornea 9.0mm+ Visiongraft W/O Scleral Rim Half - [id number] Implanted:Qty: 1 on 09/30/2018 by Claudia Marcus MD at [facility] Right: Eye [employer] 08/31/2020 [id number] # / [id number] / Description:DIN: [id number] FIN (P): [id number] Cornea [facility] Eye - [id number] Os-C Implanted:Qty: 1 on 04/18/2019 by Amadeo King MD at [facility] Right: Eye [facility] Eye Bank 04/26/2019 CORNEA# / 0 OS-C / Cornea [facility] Eye - [id number] Od-C Implanted:Qty: 1 on 04/18/2019 by Amadeo King MD at [facility] Right: Eye [facility] Eye Bank 04/26/2019 CORNEA# / 2160 OD-C / Iol [place] +21 Tecnis [id number] - [id number] Implanted:Qty: 1 on 04/18/2019 by Amadeo King MD at [facility] Right: Eye [employer] 01/26/2024 [id number] 21.0# / [id number] / Allograft 3.5x3.5cm F Amniograft - [id number] Implanted:Qty: 1 on 04/18/2019 by Amadeo King MD at [facility] Right: Eye [employer] 11/07/2020 [id number]# / [id number] / Procedures Procedure Name Priority Date/Time Associated Diagnosis Comments MAINSPRING FABRICATION SUPERVISOR THIN PREP PAP SCREEN IMAGED Routine 11/08/2020 1:30 PM CDT from Last 3 Months or Most Recently Relevant to Health Maintenance Results * MAINSPRING FABRICATION SUPERVISOR THIN PREP PAP SCREEN IMAGED (11/08/2020 1:30 PM CDT) Case Report Gynecologic Cytology Report ? Case: [id number] ? Authorizing Provider: ??Martina Strickland PA-C ?Collected: ? 11/08/2020 1330 ? Ordering Location: ? [facility] ?Received: ?11/11/2020 1612 ? First Screen: ?Isabella Garcia ? Specimen: ?MAINSPRING FABRICATION SUPERVISOR ThinPrep Vial Screening, Cervical/Vaginal ? 11/21/2020 6:[address] [facility] INTERPRETATION/ RESULT NEGATIVE FOR INTRAEPITHELIAL LESION OR MALIGNANCY (NIL) (none) 11/21/2020 6:[address] [facility] IMEN ADEQUACY Satisfactory for evaluation Endocervical component present 11/21/2020 6:[address] [facility] HPV REQUEST HPV and PAP 11/21/2020 6:[address] [facility]AL LAB[facility]ATORY Date of LMP 11/21/2020 6:20 PM CDT [facility] ENTRAL LABORATORY Comment:unknown Last Pap Date 11/26/2017 11/21/2020 6:20 PM CDT [facility] Last Pap Result NIL 6:20 PM CDT [facility] Additional Information 11/21/2020 6:20 PM CDT [facility] Comment: Interpreted at [facility] - [address], [place] [address] Automated Review Successful 11/21/2020 6:20 PM CDT [facility] Comment:Specimen processed s uccessfully by automated lean six sigma senior specialist device, ThinPrep Imaging System, [employer] ANCILLARY TESTING MAINSPRING FABRICATION SUPERVISOR HPV Ordered, Please see separate report 11/21/2020 6:20 PM CDT [facility] Note The pap test is a [...] and malignant lesions. 11/21/2020 6:20 PM CDT [facility] Other (Cervical/Vagina l) 11/08/2020 1:30 PM CDT 11/11/2020 4:12 PM CDT Martina Strickland PA-C PATHOLOGY/CYTOLOGY [facility] [address] [place] [address], [place] from Last 3 Months or Most [...] 6:36 AM 07/05/2017 3:03 PM Care Teams Gallery Or Museum Guide Relationship Specialty Start Date End Date Martina Strickland PA-C [address] [place] [address] PCP - General Emergency Medicine 04/17/19
--- OUTSIDE RECORDS SUMMARY | 2024-01-06 11:43 | XMS_ITS | Referral Summary ---
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; Dry eye syndrome of both eyes 12/19/2023 Travel 12/14/2023 Refill [facility] Eye [address] [address] Malorie Padron MD Refill Request 12/07/2023 Travel 12/07/2023 3:10 PM CDT Office Visit [facility] Eye [address] Clin [address] [place] [address] Emma Deshpande MD Epiretinal membrane (ERM) of right eye 12/06/2023 Travel 12/03/2023 MyC Medical Advice [facility] 909 [place] [phone] Kristyn Pastrana, RN 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 12/03/[address] [address] Rene Grant MD Refill Request (prednisoLONE acetate (PRED FORTE) 1 % ophthalmic suspension) 11/29/2023 2:15 PM CDT Office Visit [address] [address] Rene Grant MD 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); Post corneal transplant; Persistent epithelial defect of right cornea 11/28/2023 Travel 11/24/2023 Orders Only [address] [address] Emma Deshpande MD Epiretinal membrane (ERM) of right eye (Primary Dx) 11/08/2023 Travel 11/08/2023 3:00 PM CDT Office Visit [address] [address] Amadeo King MD Sattarova, Victoria, MD Post corneal transplant (Primary Dx); 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; Central corneal ulcer of right eye 11/07/2023 Travel 10/25/2023 Travel 10/25/2023 3:00 PM CDT Office Visit [address] [address] Amadeo King MD 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); Chronically dry eyes, right; Post corneal transplant; Corneal ulcer of right eye 10/24/2023 Travel from Last 3 Months Allergies Active Allergy Reactions Criticality Noted Date Comments Lidocaine Other (See Comments) 07/22/2011 can Other reaction(s): Get the Yoyocard Medications Medication Sig Dispensed Refills Start Date [...] CDT Office Visit [facility] Eye [facility] 516 [facility] 9th Fl Clin 9A [place] [address] Amadeo King MD 420 [facility] EMERGENCY DEPARTMENT [address] [place] [address] 12/05/2024 3:00 PM CDT Office Visit [facility] 516 [facility] 9th Fl Clin 9A [place] [address] Emma Deshpande MD 516 [facility] DAVID [address] [place] [address] Procedures Procedure Name Priority Date/Time Associated Diagnosis [...] CDT) TSH 14.50(H) 0.4 - 5.0 mU/L [facility] Blood specimen (specimen) 07/22/2011 8:00 AM CDT 07/22/2011 8:14 AM CDT Yesenia Gomez MD LAB - BLOOD O RDERABLES [facility] * Basic metabolic panel (07/22/2011 8:00 AM CDT) Sodium 138 133 - 144 mmol/L [facility] Potassium 4.2 3.4 - 5.3 mmol/L [facility] Chloride 107 94 - 109 mmol/L [facility] Carbon Dioxide 23 20 - 32 mmol/L [facility] Anion Gap 9 6 - 17 mmol/L [facility] Glucose 94 60 - 99 mg/dL [facility] Urea Nitrogen 14 5 - 24 mg/dL [facility] Creatinine 0.68 0.52 - 1.04 mg/dL [facility] GFR Estimate >90 >60 mL/min/1.7 m2 [facility] GFR Estimate If Black >90 >60 mL/min/1.7 m2 [facility] Calcium 9.1 8.5 - 10.4 mg/dL [facility] Blood specimen (specimen) 07/22/2011 8:00 AM CDT 07/22/2011 8:14 AM CDT Yesenia Gomez MD LAB - BLOOD O RDERABLES [facility] from Last 3 Months or Most Recently Relevant to Health Maintenance Care Teams Plating Inspector Relationship Specialty Start Date End Date Martina Strickland PA-C PCP - General Physician Pneumatic Riveter 07/19/19 Ailin Zavala MD Internal Medicine 07/28/11 Amadeo King MD 420 [facility] [address] [place], [place] [phone] Ophthalmology 12/22/19 Joseph Trivedi MD [facility] [address] [place], [place] [address] Rheumatology 05/21/20 Rene Grant MD 516 [place], [place] [phone] Assigned Surgical Provider 09/12/22
--- OUTSIDE RECORDS SUMMARY | 2024-01-06 11:43 | XMS_ITS | Encounter Summary ---
Author Organization [facility] Address [address] [place] [address] Care Team Providers Care Tongue Carrier Name Role Phone Ailin Zavala MD Unavailable [phone] Martina Strickland PA-C Primary Care Provider Amadeo King MD Unavailable [phone] Joseph Trivedi MD Unavailable [phone] Rene Grant MD Unavailable [phone] Reason for Visit * Reason Onset Date Comments Refill Request 12/14/2023 Encounter Details Date Type Department Care Team (Late st Contact Info) Description 12/14/2023 Refill [facility] Eye [facility] 516 [facility] 9th Nh Clin 9A [place] [address] Malorie Padron MD 420 [facility] 493 [place] [address] Refill Request Social History Tobacco Use Types [...] PM CDT Office Visit [facility] 516 [facility] 9th [facility] 9A [place] [address] Amadeo King MD 420 [facility] 493 [place], [place] [address] 12/05/2024 3:00 PM CDT Office Visit [facility] 516 [facility] 9th [facility] 9A [place] [address] Emma Deshpande MD 516 [facility] 911 [place], [place] [address] documented as of this encounter Visit Diagnoses 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 215 [place], [place] [address] Rheumatology 05/21/20 Rene Grant MD 6 [place] [address] Assigned Surgical Provider 09/12/22 documented as of this encounter
--- OUTSIDE RECORDS SUMMARY | 2024-01-06 11:43 | XMS_ITS | Encounter Summary ---
Author Organization [facility] Address [address] [place] [address]. [place] [address] Care Team Providers Care Web Master Name Role Phone Ailin Zavala MD Unavailable [phone] Martina Strickland PA-C Primary Care Provider Amadeo King MD Unavailable [phone] Joseph Trivedi MD Unavailable [phone] Rene Grant MD Unavailable [phone] Encounter Details Date Type Department Care [...] Description 01/17/2024 3:00 PM CDT Office Visit [facility] Eye [address] 9 In Clin 9A [place] [address] Amadeo King MD 420 [facility] 493 [place] [address] 12/05/2024 3:00 PM CDT Office Visit [facility] Eye [facility] 516 [facility] 9th Fl Clin 9A [place] [address] Emma Deshpande MD 516 [facility] [address] 911 [place] [address] documented as of this encounter Visit Diagnoses Not on filedocumented in this encounter Care Teams Web Master Relationship Specialty Start Date End Date Martina Strickland PA-C PCP - General Physician Retention Manager 07/19/19 Ailin Zavala MD Internal Medicine 07/28/11 Amadeo King MD [address] [place] [address] Ophthalmology 12/22/19 Joseph Trivedi MD [facility] [address] [facility] 215 [place], [place] [address] Rheumatology 05/21/20 Rene Gratn MD [address] [place] [address]675 Assigned Surgical Provider 09/12/22 documented as of this encounter
--- OUTSIDE RECORDS SUMMARY | 2024-01-06 11:44 | XMS_ITS | Encounter Summary ---
Author Organization [place] Address [address] [place] [address] Care Team Providers Care Accredited Legal Secretary Name Role Phone Aiiln Zavala MD Unavailable [phone] Martina Strickland PA-C Primary Care Provider Amadeo King MD Unavailable [phone] Joseph Trivedi MD Unavailable [phone] Rene Grant MD Unavailable [phone] Reason for Visit * Reason Onset Date Comments Appointment 09/07/2023 2-3 week follow up Encounter Details Date Type Department Care Team (Late st Contact Info) Description 09/07/2023 Telephone [facility] Eye [facility] 516 [facility] 9A [place] [address] Amadeo King MD [address] [address] Appointment (2-3 week follow up) Social History [...] Callie Norwood - 09/07/2023 11:22 AM CDT [facility] Call Center Phone Message May a [...] Message routed to: [facility] ([facility]): EYE Travel Screening: Not Applicable documented in this encounter Plan of Treatment Upcoming Encounters Date Type Department Care Team (Late st Contact Info) Description 01/17/2024 3:00 PM CDT Office Visit [facility] Eye [facility] 516 [facility] 9th [place] Clin 9A [place] [address] Amadeo King MD 420 [facility] 493 [place] [address] 12/05/2024 3:00 PM CDT Office Visit [facility] Eye [facility] 516 [facility] 9th Fl Clin 9A [place] [address] Emma Deshpande MD 516 [facility] [address] 911 [place] [address] documented as of this encounter Visit Diagnoses Not on filedocumented in this encounter Care Teams Accredited Legal Secretary Relationship Specialty Start Date End Date Martina Strickland PA-C PCP - General Physician Insurance Auditor 07/19/19 Ailin Zavala MD Internal Medicine 07/28/11 Amadeo King MD 420 [facility] EMERGENC[facility] DEPARTMENT 493 [place] [address] Ophthalmology 12/22/19 Joseph Trivedi MD [facility] [address] [place], [place] [address] Rheumatology 05/21/20 Rene Grant MD 516 [place] [address] Assigned Surgical Provider 09/12/22 documented as of this encounter
--- OUTSIDE RECORDS SUMMARY | 2024-01-06 11:44 | XMS_ITS | Encounter Summary ---
Author Organization [place] Address [address] [place] [address] Care Team Providers Care Egg Breaking Machine Operator Name Role Phone Ailin Zavala MD Unavailable [phone] Martina Strickland PA-C Primary Care Provider Amadeo King MD Unavailable [phone] Claudia Marcus MD Unavailable [phone] Amadeo King MD Unavailable [phone] Joseph Trivedi MD Unavailable [phone] Claduia Marcus MD Unavailable [phone] Emma Deshpande [...] (Late st Contact Info) Description 10/09/2019 Telephone [facility] Ophthalmology [address] 4th [place] [address] Amadeo King MD 420 [facility] EMERG[facility]PARTMENT 493 [place] [address] Call Back (Appt tm at [...] Santino Leon - 10/09/2019 2:21 PM CDT [facility] Call Center Phone Message May [...] 01/17/2024 3:00 PM CDT Office Visit [facility] Eye [facility] - [facility] 516 [facility] 9th [place] Clin 9A [place] [address] Amadeo King MD 420 [facility] EMER[facility]PARTMENT 493 [place], [place] [address] 12/05/2024 3:00 PM CDT Office Visit [facility] - [facility] 516 [facility] 9th [address] Clin 9A [place] [address] Emma Deshpande MD 516 [facility] [address] 911 [place], [place] [address] documented as of this encounter Visit Diagnoses Not on filedocumented in this encounter Care Teams Egg Breaking Machine Operator Relationship Specialty Start Date End Date Martina Strickland PA-C PCP - General Physician Pre Sales Network Engineer 07/19/19 Ailin Zavala MD Internal Medicine 07/28/11 Amadeo King MD [address] [place] [address] Ophthalmology 12/22/19 Claudia Marcus MD [facility] EYE [facility] [address] [place] [address] Assigned Surgical Provider 03/01/20 05/25/20 Amadeo King MD [address] [place] [address] 493 [place] [address] Assigned PCP 04/07/20 06/02/23 Joseph Trivedi MD [facility] [address] [facility] 215 [place] [address] Rheumatology 05/21/20 Claudia Marcus MD [facility] EYE [facility] [address] [place] [phone] Assigned Surgical Provider 06/30/20 10/19/20 Emma Deshpande MD [address] [place] [address] [phone] Assigned Surgical Provider 05/26/20 06/29/20 Kishan Spain, OD 909 [facility] 4th [place] [address] Assigned Surgical Provider 10/20/20 11/23/20 Emma Deshpande MD [address] [place] [address] [phone] Assigned Surgical Provider 11/24/20 12/07/20 Kishan Spain, OD 909 [facility] 4th [place] [address] Assigned Surgical Provider 12/08/20 03/27/22 Emma Deshpande MD [address] [place] [address] [phone] Assigned Surgical Provider 03/28/22 04/03/22 Rene Grant MD [address] [place] [address] Assigned Surgical Provider 04/04/22 08/21/22 Amadeo Winston MD [address] [place] [address] Assigned Surgical Provider 08/22/22 08/28/22 Amadeo Winston MD [address] [place] [address] Assigned Surgical Provider 09/05/22 09/11/22 Rene Grant MD [address] [place] [address] Assigned Surgical Provider 08/29/22 09/04/22 Rene Grant MD [address] [place] [address] Assigned Surgical Provider 09/12/22 documented as of this encounter
--- OUTSIDE RECORDS SUMMARY | 2024-01-06 11:44 | XMS_ITS | Encounter Summary ---
Author Organization [place] Address [address] [place] [address]. [place] [address] Care Team Providers Care Sales Apprentice Name Role Phone Ailin Zavala MD Unavailable [phone] Martina Strickland PA-C Primary Care Provider Amadeo King MD Unavailable [phone] Joseph Trivedi MD Unavailable [phone] Rene Grant MD Unavailable [phone] Encounter Details Date Type Department Care [...] CDT Office Visit [facility] [address] 9 [place] Clin 9A [place] [address] Amadeo King MD 420 [facility] 493 [place] [address] 12/05/2024 3:00 PM CDT Office Visit [facility] 516 [facility] 9th Fl Clin 9A [place] [address] Emma Deshpande MD 516 [facility] [address] 911 [place] [address] documented as of this encounter Visit Diagnoses Not on filedocumented in this encounter Care Teams Sales Apprentice Relationship Specialty Start Date End Date Martina Strickland PA-C PCP - General Physician District Court Judge 07/19/19 Ailin Zavala MD Internal Medicine 07/28/11 Amadeo King MD [address] [place] [address] [id number] Ophthalmology 12/22/19 Joseph Trivedi MD [facility] [address] [facility] 215 [place], [place] [address] Rheumatology 05/21/20 Rene Grant MD [address] [place] [address] [id number] Assigned Surgical Provider 09/12/22 documented as of this encounter
--- OUTSIDE RECORDS SUMMARY | 2024-01-06 11:44 | XMS_ITS | Encounter Summary ---
Author Organization [place] Address [address] [place] [address] Care Team Providers Care Endoscopic Technician Name Role Phone Ailin Zavala MD Unavailable [phone] Martina Strickland PA-C Primary Care Provider Amadeo King MD Unavailable [phone] Joseph Trivedi MD Unavailable [phone] Rene Grant MD Unavailable [phone] Reason for Visit * Reason Comments Follow Up Encounter Details Date Type Department Care Team (Late st Contact Info) Description 11/29/2023 2:15 PM CDT Office Visit [facility] Eye [address] 9[facility] 9A [place] [phone] Rene Grant MD [address] [place] [address] 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 Llamas h/o Aqueous Misdirection s/p [...] 01/17/2024 3:00 PM CDT Office Visit [facility] - [address] 9[facility] 9A [place] [address] Amadeo King MD 420 [facility] 493 [place] [address] 12/05/2024 3:00 PM CDT Office Visit 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
--- OUTSIDE RECORDS SUMMARY | 2024-01-06 11:44 | XMS_ITS | Encounter Summary ---
Author Organization [place] Address [address] [place] [address] Care Team Providers Care Ice Cream Vendor Name Role Phone Ailin Zavala MD Unavailable [phone] Martina Strickland PA-C Primary Care Provider Amadeo King MD Unavailable [phone] Joseph Trivedi MD Unavailable [phone] Rene Grant MD Unavailable [phone] Encounter Details Date Type Department Care Team (Late st Contact Info) Description 11/24/2023 Orders Only [facility] Eye [place] 087926 [facility] 9th Ms Clin 9A [place] [address] Emma Deshpande MD [address] [place] [address] 911 [place], [place] 822135 Epiretinal membrane (ERM) of right eye (Primary [...] Description 01/17/2024 3:00 PM CDT Office Visit [facility] 516 [facility] 9th Fl Clin 9A [place] [address] Amadeo King MD 420 [facility] 493 [place] [address] 12/05/2024 3:00 PM CDT Office Visit [facility] 516 [facility] 9th Fl Clin 9A [place] [address] Emma Deshpande MD 516 [facility] [address] 911 [place] [address] documented as of this encounter Results * [...] eye documented in this encounter Care Teams Ice Cream Vendor Relationship Specialty Start Date End Date Martina Strickland PA-C PCP - General Physician Lead Cytogenetic Technologist 07/19/19 Ailin Zavala MD Internal Medicine 07/28/11 Amadeo King MD 420 [facility] 493 [place] [address] Ophthalmology 12/22/19 Joseph Trivedi MD [facility] [address] [address] Rheumatology 05/21/20 Rene Grant MD 516 [place] [address] Assigned Surgical Provider 09/12/22 documented as of this encounter
--- OUTSIDE RECORDS SUMMARY | 2024-01-06 11:44 | XMS_ITS | Encounter Summary ---
Author Organization [place] Address [address] [place] [address] Care Team Providers Care Dispatch Associate Name Role Phone Ailin Zavala MD Unavailable [phone] Ailin Zavala MD Primary Care Provider Martina [...] st Contact Info) Description 03/27/[address] [facility] Eye [facility] [place] [id number] [facility] 9th Ri Clin 9A [place] [address] Amadeo King MD [address] [address] Call Back (recovery time for upcoming surgery) [...] Chayo Robbins - 03/27/2019 3:58 PM CST [facility] Phone Message May a detailed message be left on voicemail: yes Reason for Call: Other: Paula calling to find out what the recovery time is going to be after her surgery. She is needing this information for her work. Please call her back to discuss Action Taken: Message routed to: [facility] Eye CTOR OF CONTRACTS documented in this encounter Plan of Treatment Upcoming Encounters Date Type Department Care Team (Late st Contact Info) Description 01/17/2024 3:00 PM CDT Office [facility] Eye [facility] [place] 522096 [facility] 9[facility] Clin 9A [place] [address] Amadeo King MD [address] [place] [address] 12/05/2024 3:00 PM CDT Office [facility] Eye [facility] 516 [facility] 9th Fl Clin 9A [place] [address] Emma Deshpande MD 516 [facility] [address] 911 [place], [place] [address] documented as of this encounter Visit Diagnoses Not on filedocumented in this encounter Care Teams Dispatch Associate Relationship Specialty Start Date End Date Ailin Zavala MD PCP - General Internal Medicine 07/28/11 07/18/19 Martina Strickland PA-C PCP - General Physician Chairman Of The Board 07/19/19 Ailin Zavala MD Internal Medicine 07/28/11 Amadeo King MD [address] [place] [address] Ophthalmology 12/22/[address] [facility] EYE [facility] [address] [place] [address] Assigned Surgical Provider 03/01/20 05/25/20 Amadeo King MD [address] [place] [address] Assigned PCP 04/07/20 06/02/23 Joseph Trivedi MD [facility] [address] [place] [facility] 215 [place] 60[address] Rheumatology 05/21/[address] [facility] EYE [facility] [address] [place] [phone] Assigned Surgical Provider 06/30/20 10/19/20 Emma Deshpande MD [address] [place] [address] 783975 Assigned Surgical Provider 05/26/20 06/29/20 Kishan Spain, OD [address] [place] [phone] Assigned Surgical Provider 10/20/20 11/23/20 Emma Deshpande MD [address] [place] [address] 576245 Assigned Surgical Provider 11/24/20 12/07/20 Kishan Spain, OD [address] [place] [phone] Assigned Surgical Provider 12/08/20 03/27/22 Emma Deshpande MD [address] [place] [address] 576215 Assigned Surgical Provider 03/28/22 04/03/22 Rene Grant MD [address] [place] [address] Assigned Surgical Provider 04/04/22 08/21/22 Amadeo Winston MD [address] [place] [address] Assigned Surgical Provider 08/22/22 08/28/22 Amadeo Winston MD [address] [place] [address] Assigned Surgical Provider 09/05/22 09/11/22 Rene Grant MD [address] [place] [address] Assigned Surgical Provider 08/29/22 09/04/22 Rene Grant MD [address] [place] [address] Assigned Surgical Provider 09/12/22 documented as of this encounter
--- OUTSIDE RECORDS SUMMARY | 2024-01-06 11:44 | XMS_ITS | Encounter Summary ---
Author Organization [facility] Address [address] [place] [address] Care Team Providers Care Collar Setter Name Role Phone Ailin Zavala MD Unavailable Martina Strickland PA-C Primary Care Provider Amadeo King MD Unavailable [phone] Joseph Trivedi MD Unavailable [phone] Rene Grant MD Unavailable [phone] Reason for Visit * Reason Comments Follow Up # s/p multiple PKP O D # s/p KLAL/PKP OD/IOL exchange right eye 04/18/2019# s/p conj chalasis excision nasally right eye 06/14/2019 Encounter Details Date Type Department Care Team (Late st Contact Info) Description 11/08/2023 3:00 PM CDT Office Visit [facility] 516 [facility] 9th Nm Clin 9A [place] [phone] Amadeo King MD 420 [facility] 493 [place] [address] Cydney Madrid MD 420 [place] [address] Post corneal transplant (Primary Dx); [...] JAMAL carballo DR -- was following at [facility] with Dr. Llamas h/o Aqueous Misdirection s/p [...] glaucoma OD - Previously seen by Dr. Pardon - continue brimonidine BID right eye #. 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 DM s Retinopathy - continue to follow with Dr. Deshpande #. Pseudophakia, right eye - S/p Yag Cap 05/2020 Follow up: 2-3 weeks, sooner if problems. Cydney Madrid MD Cornea and External Disease Fellow [facility] Attending Physician Attestation: Complete documentation of historical [...] Description 01/17/2024 3:00 PM CDT Office Visit [facility] Eye [facility] 516 [facility] 9th Nm Clin 9A [place] [address] Amadeo King MD 420 [facility] 493 [place] [address] 12/05/2024 3:00 PM CDT Office Visit [facility] [place] 839396 [facility] 9th Nm Clin 9A [place] [address] Emma Deshpande MD 516 [facility] 911 [place], [place] 14[address] documented as of this encounter Visit Diagnoses Diagnosis 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
--- OUTSIDE RECORDS SUMMARY | 2024-01-06 11:44 | XMS_ITS | Encounter Summary ---
Author Organization [facility] Address [address] [place] [address] Care Team Providers Care Card Brusher Name Role Phone Ailin Zavala MD Unavailable Martina Strickland PA-C Primary Care Provider Amadeo iKng MD Unavailable [phone] Amadeo King MD Unavailable [phone] Joseph Trivedi MD Unavailable Rene Grant MD Unavailable Amadeo Winston MD Unavailable Amadeo Winston MD Unavailable Rene Grant MD Unavailable [phone] Rene Grant MD Unavailable [phone] Reason for Visit * Reason Onset Date Comments Refill Request 06/22/2022 prednisoLONE dick benitez (PRED FORTE) 1 % ophthalmic suspension Encounter Details Date Type Department Care Team (Late st Contact Info) Description 06/22/2022 [facility] [address] Clin 9A [place] [phone] Rene Grant MD [address] [place] [address] Refill Request (prednisoLONE acetate (PRED FORTE) [...] Coronavirus/COVID-19? No / Unsure 06/03/2022 2:32 PM BRUSH MACHINE SETTER documented as of this encounter Miscellaneous Notes [...] arrive. requests 10 ml 0 rfs. H MACHINE SETTER * Telephone Encounter - Ashley Paula - 06/22/2022 1:03 PM CST [facility] Phone Message May a detailed message be left on voicemail: yes Reason for Call: Medication Refill Request Has the patient contacted the pharmacy for the refill? Yes Name of medication being requested: prednisoLONE acetate (PRED FORTE) 1 % ophthalmic suspension Provider who prescribed the medication: Dr. Grant Pharmacy: [facility] Date medication is needed: JOSE MANUEL Patient called stating she will not have this medication until the from her mail order pharmacy and she is out. She is asking for an emergency refill. Action Taken: Other: eye Travel Screening: Not Applicable H MACHINE SETTER documented in this encounter Plan of Treatment Upcoming Encounters Date Type Department Care Team (Late st Contact Info) Description 01/17/2024 3:00 PM CDT Office Visit [facility] Eye [facility] 516 [facility] [address] Clin 9A [place] [address] Amadeo King MD 420 [facility] 493 [place] [address] 12/05/2024 3:00 PM CDT Office Visit [facility] Eye [facility] 516 [facility] [address] Clin 9A [place] [address] Emma Deshpande MD 516 [facility] 911 [place], [place] [address] documented as of this encounter Visit Diagnoses Diagnosis 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 documented in this encounter Care Teams Card Brusher Relationship Specialty Start Date End Date Martina Strickland PA-C PCP - General Physician Race Car Mechanic 07/19/19 Ailin Zavala MD Internal Medicine 07/28/11 Amadeo King MD [address] [place] [address] Ophthalmology 12/22/19 Amadeo King MD [address] [place] [address] 493 [place] [address] Assigned PCP 04/07/20 06/02/23 Joseph Trivedi MD [facility] [address] 215 [place], [place] [address] Rheumatology 05/21/20 Rene Grant MD [address] [place] [address] Assigned Surgical Provider 04/04/22 08/21/22 Amadeo Winston MD [address] [place] [address] 361945 Assigned Surgical Provider 08/22/22 08/28/22 Amadeo Winston MD [address] [place] [address] Assigned Surgical Provider 09/05/22 09/11/22 Rene Grant MD [address] [place] [address] [phone] Assigned Surgical Provider 08/29/22 09/04/22 Rene Grant MD [address] [place] [address] [phone] Assigned Surgical Provider 09/12/22 documented as of this encounter
--- OUTSIDE RECORDS SUMMARY | 2024-01-06 11:44 | XMS_ITS | Encounter Summary ---
Author Organization [place] Address [address] [place] [address]. [place] [address] Care Team Providers Care Roller Cleaner Name Role Phone Ailin Zavala MD Unavailable [phone] Martina Strickland PA-C Primary Care Provider Amadeo King MD Unavailable [phone] Joseph Trivedi MD Unavailable [phone] Rene Grant MD Unavailable [phone] Encounter Details Date Type Department Care [...] Description 01/17/2024 3:00 PM CDT Office Visit [facility] Eye [address] 9 Nd Clin 9A [place] [address] Amadeo King MD 420 [facility] 493 [place] [address] 12/05/2024 3:00 PM CDT Office Visit [facility] Eye [facility] 516 [facility] 9th Fl Clin 9A [place] [address] Emma Deshpande MD 516 [facility] [address] 911 [place] [address] documented as of this encounter Visit Diagnoses Not on filedocumented in this encounter Care Teams Roller Cleaner Relationship Specialty Start Date End Date Martina Strickland PA-C PCP - General Physician Advanced Practice Professional 07/19/19 Ailin Zavala MD Internal Medicine 07/28/11 Amadeo King MD [address] [place] [address] 085865 Ophthalmology 12/22/19 Joseph Trivedi MD [facility] [address] [facility] 215 [place], [place] [address] Rheumatology 05/21/20 Rene Grant MD [address] [place] [address] 435835 Assigned Surgical Provider 09/12/22 documented as of this encounter
--- OUTSIDE RECORDS SUMMARY | 2024-01-06 11:44 | XMS_ITS | Encounter Summary ---
Author Organization [facility] Address [address] [place] [address] Care Team Providers Care Hat Lining Blocker Name Role Phone Ailin Zavala MD Unavailable [phone] Martina Strickland PA-C Primary Care Provider Amadeo King MD Unavailable [phone] Amadeo King MD Unavailable [phone] Joseph Trivedi MD Unavailable [phone] Claudia Marcus MD Unavailable [phone] Kishan Spain OD Unavailable [phone] Emma Deshpande MD Unavailable [phone] Kishan Spain OD Unavailable [phone] Emam Deshpande MD Unavailable [phone] Rene Grant [...] st Contact Info) Description 08/28/2020 Refill [facility] Eye [facility] 516 [facility] 9th Fl Clin 9A [place] [address] Amadeo King MD 420 [facility] 493 [place], [place] [phone] Refill Request (mycophenolate (GENERIC EQUIVALENT) 250 MG [...] who prescribed the medication: Dr. King Pharmacy: [id number] [place], [place] - [address] [facility] [address] Date medication is needed: now-pt has 1 left. Spouse didn't tell her she was almost out. Thanks Action Taken: Message routed to: [facility] eye gen Travel Screening: Not Applicable documented in this encounter Plan of Treatment Upcoming Encounters Date Type Department Care Team (Late st Contact Info) Description 01/17/2024 3:00 PM CDT Office Visit [facility] [place] [address]996 [facility] 9th [facility] 9A [place] [address] Amadeo King MD 420 [facility] 493 [place] [address] 12/05/2024 3:00 PM CDT Office Visit [facility] 516 [facility] 9th Nd Clin 9A [place] [address] Emma Deshpande MD [address] [place] [address] [address] 911 [place], [place] [address] documented as of this encounter Visit Diagnoses Diagnosis 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 documented in this encounter Care Teams Hat Lining Blocker Relationship Specialty Start Date End Date LyMartina moncada PA-C PCP - General Physician Insurance Examining Clerk 07/19/19 Ailin Zavala MD Internal Medicine 07/28/11 Amadeo King MD 420 [facility] 493 [place], [place] [address] Ophthalmology 12/22/19 Amadeo King MD [address] [phone] Assigned PCP 04/07/20 06/02/23 Joseph Trivedi MD [facility] [address] [facility] 215 [place] [address] Rheumatology 05/21/20 Claudia Marcus MD [facility] EYE [facility] 6533 [place] [phone] Assigned Surgical Provider 06/30/20 10/19/20 Kishan Spain, OD [address] [place] [address] 4th [place] [phone] Assigned Surgical Provider 10/20/20 11/23/20 Emma Deshpande MD 6 [facility] 911 [place], [place] 4[address]85 Assigned Surgical Provider 11/24/20 12/07/20 Kishan Spain, OD [facility] 4th [place] [phone] Assigned Surgical Provider 12/08/20 03/27/22 Emma Deshpande MD 516 [facility] 911 [place], [place] 48[address] Assigned Surgical Provider 03/28/22 04/03/22 Rene Grant MD [address] [place] [address] [phone] Assigned Surgical Provider 04/04/22 08/21/22 Amadeo Winston MD 420 [place], [place] 572295 Assigned Surgical Provider 08/22/22 08/28/22 Amadeo Winston MD 420 [place], [place] 221665 Assigned Surgical Provider 09/05/22 09/11/22 Rene Grant MD [address] [place] [address] Assigned Surgical Provider 08/29/22 09/04/22 Rene Grant MD [address] [place] [address] Assigned Surgical Provider 09/12/22 documented as of this encounter
--- OUTSIDE RECORDS SUMMARY | 2024-01-06 11:44 | XMS_ITS | Encounter Summary ---
Author Organization [facility] Address [address] [place] [address] Care Team Providers Care Carpet Journeyman Name Role Phone Ailin Zavala MD Unavailable [phone] Martina Strickland PA-C Primary Care Provider Amadeo King MD Unavailable + [phone] Claudia Marcus MD Unavailable +[phone] Amadeo King MD Unavailable +[phone] Joseph Trivedi MD Unavailable [phone] Claudia Marcus MD Unavailable [phone] [...] Contact Info) Description 03/27/2020 MyC Medical Advice [address] [address] Jessica Chisholm, RN Social History Tobacco Use [...] COVID-19? 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 documented as of this encounter Plan of Treatment Upcoming Encounters Date Type Department Care Team (Late st Contact Info) Description 01/17/2024 3:00 PM CDT Office Visit [facility] [place] [id number] [facility] 9th [facility] 9A [place] [address] Amadeo King MD 420 [facility] 493 [place], [place] 8810[address] 12/05/2024 3:00 PM CDT Office [facility] [place] [id number] [facility] 9th [facility] 9A [place] [address] Emma Deshpande MD 516 [facility] 911 [place], [place] 758825 documented as of this encounter Visit Diagnoses Not on filedocumented in this encounter Care Teams Carpet Journeyman Relationship Specialty Start Date End Date Martina Strickland PA-C PCP - General Physician Head Of Insight 07/19/19 Ailin Zavala MD Internal Medicine 07/28/11 Amadeo King MD [address] [address] Ophthalmology 12/22/19 Claudia Marcus MD [facility] EYE [facility] [address] [place] [phone] Assigned Surgical Provider 03/01/20 05/25/20 Amadeo King MD [address] [phone] Assigned PCP 04/07/20 06/02/23 Joseph Trivedi MD [facility] [address] [facility] 215 [place] [address] Rheumatology 05/21/20 Claudia Marcus MD [facility] EYE [facility] [address] [place] [address] Assigned Surgical Provider 06/30/20 10/19/20 Emma Deshpande MD 6 [facility] 911 [place], [place] [phone] Assigned Surgical Provider 05/26/20 06/29/20 Kishan Spain OD 9 [facility] 4th [place] [address] Assigned Surgical Provider 10/20/20 11/23/20 Emma Deshpande MD [address] [place] [address] Assigned Surgical Provider 11/24/20 12/07/20 Kishan Spain [address] [place] [address] 4th [place] [address] Assigned Surgical Provider 12/08/20 03/27/22 Emma Deshpande MD [address] [place] [address] Assigned Surgical Provider 03/28/22 04/03/22 Rene Grant MD [address] [place] [address] Assigned Surgical Provider 04/04/22 08/21/22 Amadeo Winston MD [address] [place] [address] Assigned Surgical Provider 08/22/22 08/28/22 Amadeo Winston MD [address] [place] [address] Assigned Surgical Provider 09/05/22 09/11/22 Rene Grant MD [address] [place] [address] Assigned Surgical Provider 08/29/22 09/04/22 Rene Grant MD 6 [place] [address] Assigned Surgical Provider 09/12/22 documented as of this encounter
--- OUTSIDE RECORDS SUMMARY | 2024-01-06 11:44 | XMS_ITS | Encounter Summary ---
Author Organization [facility] Address [address] [place] [address] Care Team Providers Care Verifying Machine Operator Name Role Phone Ailin Zavala MD Unavailable [phone] Martina Strickland PA-C Primary Care Provider Amadeo King MD Unavailable + [phone] Claudia Marcus MD Unavailable [phone] Amadeo King MD Unavailable +[phone] Joseph Trivedi MD Unavailable [phone] Claudia Marcus MD Unavailable [phone] [...] Encounter Details Date Type Department Care Team ([facility] Contact Info) Description 01/22/2020 Telephone [facility] [place] [id number] [facility] [address] Clin 9A [place] [address] Amadeo King MD [address] 830385 Medication Question Social History Tobacco Use Types [...] Robin Luu - 01/22/2020 1:39 PM CDT [facility] Call Center Phone Message May a detailed message be left on voicemail: yes Reason for Call: Medication Question or concern regarding medication Prescription Clarification Name of Medication: cyclosporine, combigan, prednisone eye drop Prescribing Provider: SCAR[facility] Pharmacy: [id number] [address] [facility] [address] And [facility] What on the order needs clarification? Pt is running low. Cyclosporine should be sent to [facility] pharmacy. The other two rx should go to pharmacy above. Action Taken: Other: eye Travel Screening: Not Applicable documented in this encounter Plan of Treatment Upcoming Encounters Date Type Department Care Team ([facility] Contact Info) Description 01/17/2024 3:00 PM CDT Office Visit [facility] - [address] 9[facility] 9A [place] [address] Amadeo King MD [address] 948695 12/05/2024 3:00 PM CDT Office Visit [facility] 516 [facility] 9 Fl Clin 9A [place] [phone] Emma Deshpande MD 516 [facility] [address] 911 [place], [place] 382205 documented as of this encounter Visit Diagnoses Not on filedocumented in this encounter Care Teams Verifying Machine Operator Relationship Specialty Start Date End Date Martina Strickland PA-C PCP - General Physician Reshipping Clerk 07/19/19 Ailin Zavala MD Internal Medicine 07/28/11 Amadeo King MD [address] [place] [address] Ophthalmology 12/22/19 Claudia Marcus MD [facility] EYE [facility] [address] [place] [address] Assigned Surgical Provider 03/01/20 05/25/20 Amadeo King MD [address] [place] [address] Assigned PCP 04/07/20 06/02/23 Joseph Trivedi MD [facility] [address] [facility] 215 [place] [address] Rheumatology 05/21/20 Claudia Marcus MD [facility] EYE [facility] [address] [place] [address] Assigned Surgical Provider 06/30/20 10/19/20 Emma Deshpande MD [address] [place] [address] 919905 Assigned Surgical Provider 05/26/20 06/29/20 Kishan Spain, OD [address] [place] [phone] Assigned Surgical Provider 10/20/20 11/23/20 Emma Deshpande MD [address] [place] [address] 765885 Assigned Surgical Provider 11/24/20 12/07/20 Kishan Spain, OD [address] [place] [phone] Assigned Surgical Provider 12/08/20 03/27/22 Emma Deshpande MD [address] [place] [address] 574845 Assigned Surgical Provider 03/28/22 04/03/22 Rene Grant MD [address] [place] [address] 950385 Assigned Surgical Provider 04/04/22 08/21/22 Amadeo Winston MD [address] [place] [address] 191455 Assigned Surgical Provider 08/22/22 08/28/22 Amadeo Winston MD [address] [place] [address] [phone] Assigned Surgical Provider 09/05/22 09/11/22 Rene Grant MD [address] [place] [address] 765475 Assigned Surgical Provider 08/29/22 09/04/22 Rene Grant MD [address] [place] [address] 833175 Assigned Surgical Provider 09/12/22 documented as of this encounter
--- OUTSIDE RECORDS SUMMARY | 2024-01-06 11:44 | XMS_ITS | Encounter Summary ---
Author Organization [facility] Address [address] [place] [address] Care Team Providers Care Mail Superintendent Name Role Phone Ailin Zavala MD Unavailable [phone] Martina Strickland PA-C Primary Care Provider Amadeo King MD Unavailable [phone] Joseph Trivedi MD Unavailable [phone] Rene Grant MD Unavailable [phone] Encounter Details Date Type Department Care Team (Late st Contact Info) Description 09/09/2023 [facility] Eye [address] Clin 9A [place] [address] [facility] Social History Tobacco Use Types Packs/Day Years [...] 01/17/2024 3:00 PM CDT Office Visit [facility] Eye [facility] 516 [facility] 9th Ks Clin 9A [place] [address] Amadeo King MD 420 [facility] 493 [place] [address] 12/05/2024 3:00 PM CDT Office Visit [facility] Eye [facility] 516 [facility] 9th [facility] 9A [place] [phone] Emma Deshpande MD [address] [place] [address] 911 [place], [place] 951425 documented as of this encounter Visit Diagnoses Not on filedocumented in this encounter Care Teams Mail Superintendent Relationship Specialty Start Date End Date Martina Strickland PA-C PCP - General Physician Golf Club Facer 07/19/19 Ailin Zavala MD Internal Medicine 07/28/11 Amadeo King MD [address] [place] [address] 493 [place], [place] 149345 Ophthalmology 12/22/19 Joseph Trivedi MD [facility] [address] [facility] 215 [place], [place] 7[address] Rheumatology 05/21/20 Rene Grant MD [address] [place] [address] 771985 Assigned Surgical Provider 09/12/22 documented as of this encounter
--- OUTSIDE RECORDS SUMMARY | 2024-01-06 11:44 | XMS_ITS | Encounter Summary ---
Author Organization [facility] Address [address] [place] [address] Care Team Providers Care Radiological Technologist Name Role Phone Ailin Zavala MD Unavailable [phone] Martina Strickland PA-C Primary Care Provider Amadeo King MD Unavailable [phone] Joseph Trivedi MD Unavailable [phone] Rene Grant MD Unavailable [phone] Reason for Visit * Reason Comments Corneal Ulcer Follow Up Encounter Details Date Type Department Care Team (Late st Contact Info) Description 10/25/2023 3:00 PM CDT [facility] 516 [facility] 9th Fl Clin 9A [place] [phone] Amadeo King MD 420 [facility] 493 [place] [address] Persistent epithelial defect of right cornea (Primary [...] 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, right Post corneal transplant Cornea replaced by transplant Corneal ulcer of right eye Corneal ulcer, unspecified documented in this encounter Care Teams Radiological Technologist Relationship Specialty Start Date End Date Martina Strickland PA-C PCP - General Physician Business Objects Report Developer 07/19/19 Ailin Zavala MD Internal Medicine 07/28/11 Amadeo King MD 420 [facility] 493 [place] [address] Ophthalmology 12/22/19 Joseph Trivedi MD [facility] [address] 215 [place], [place] [address] Rheumatology 05/21/20 Rene Grant MD 516 [place], [place] 13215[address] Assigned Surgical Provider 09/12/22 documented as of this encounter
--- OUTSIDE RECORDS SUMMARY | 2024-01-06 11:44 | XMS_ITS | Encounter Summary ---
Author Organization [facility] Address [address] [place] [address]. [place] [address] Care Team Providers Care Hydroelectric Systems Technician Name Role Phone Ailin Zavala MD Unavailable [phone] Martina Strickland PA-C Primary Care Provider Amadeo King MD Unavailable [phone] Joseph Trivedi MD Unavailable [phone] Rene Grant MD Unavailable [phone] Encounter Details Date Type Department Care [...] Description 01/17/2024 3:00 PM CDT Office Visit [facility] Eye [address] Clin 9A [place] [address] Amadeo King MD 420 [facility] 493 [place] [address] 12/05/2024 3:00 PM CDT Office Visit [facility] Eye [facility] 516 [facility] 9th Fl Clin 9A [place] [address] Emma Deshpande MD 516 [facility] [address] 911 [place] [address] documented as of this encounter Visit Diagnoses Not on filedocumented in this encounter Care Teams Hydroelectric Systems Technician Relationship Specialty Start Date End Date Martina Strickland PA-C PCP - General Physician News Library Director 07/19/19 Ailin Zavala MD Internal Medicine 07/28/11 Amadeo King MD [address] [place] [address] Ophthalmology 12/22/19 Joseph Trivedi MD [facility] [address] [facility] 215 [place], [place] 8[address] Rheumatology 05/21/20 Rene Grant MD [address] [place] [address] 813615 Assigned Surgical Provider 09/12/22 documented as of this encounter
--- OUTSIDE RECORDS SUMMARY | 2024-01-06 11:44 | XMS_ITS | Encounter Summary ---
Author Organization [facility] Address [address] [place] [address]. [place] [address] Care Team Providers Care Naval Aircrewman Mechanical Name Role Phone Ailin Zavala MD Unavailable Martina Strickland PA-C Primary Care Provider Amadeo King MD Unavailable [phone] Joseph Trivedi MD Unavailable [phone] Rene Grant MD Unavailable [phone] Encounter Details Date Type Department Care [...] Description 01/17/2024 3:00 PM CDT Office Visit [facility] [address] 9 Co Clin 9A [place] [address] Amadeo King MD 420 [facility] 493 [place] [address] 12/05/2024 3:00 PM CDT Office Visit [facility] 516 [facility] 9th Fl Clin 9A [place] [address] Emma Deshpande MD 516 [facility] [address] 911 [place] [address] documented as of this encounter Visit Diagnoses Not on filedocumented in this encounter Care Teams Naval Aircrewman Mechanical Relationship Specialty Start Date End Date Martina Strickland PA-C PCP - General Physician Wood Heel Flap Inserter 07/19/19 Ailin Zavala MD Internal Medicine 07/28/11 Amadeo King MD [address] [place] [address] 765975 Ophthalmology 12/22/19 Joseph Trivedi MD [facility] [address] [facility] 215 [place], [place] [address] Rheumatology 05/21/20 Rene Grant MD [address] [place] [address] 070735 Assigned Surgical Provider 09/12/22 documented as of this encounter
--- OUTSIDE RECORDS SUMMARY | 2024-01-06 11:44 | XMS_ITS | Encounter Summary ---
Author Organization [facility] Address [address] [place] [address] Care Team Providers Care Gas Meter Reader Name Role Phone Ailin Zavala MD Unavailable [phone] Martina Strickland PA-C Primary Care Provider Amadeo King MD Unavailable + [phone] Claudia Marcus MD Unavailable [phone] Amadeo King MD Unavailable +[phone] Joseph Trivedi MD Unavailable [phone] Claudia Marcus MD Unavailable [phone] Emma Deshpande MD Unavailable + [phone] Kishan Spain OD Unavailable +[phone] Emma Deshpande MD Unavailable [phone] Kishan Spain OD Unavailable [phone] Emam Deshpande MD Unavailable + [phone] Rene Grant MD Unavailable [phone] Amadeo Winston MD Unavailable [phone] Amadeo Winston MD Unavailable +[phone] Rene Grant MD Unavailable +[phone] Rene Grant MD Unavailable [phone] Reason for Visit * Reason Onset Date Comments Appointment 11/27/[address] King Encounter Details Date Type Department Care Team (Late Contact Info) Description 11/27/2019 Telephone [facility] 516 [facility] 9th Fl Clin 9A [place] [address] Amadeo King MD 420 [facility] 493 [place], [place] [address] Appointment (Appt with Dr King) Social History [...] Tania Marin - 11/27/2019 8:58 AM CDT [facility] Phone Message May [...] 3:00 PM CDT Office Visit [facility] [address] 9th Fl Clin 9A [place] [address] Amadeo King MD 420 [facility] 493 [place] [address] 12/05/2024 3:00 PM CDT Office Visit [facility] [address] 9th Fl Clin 9A [place] [address] Emma Deshpande MD 516 [facility] [address] 911 [place], [place] 3457[address] documented as of this encounter Visit Diagnoses Not on filedocumented in this encounter Care Teams Gas Meter Reader Relationship Specialty Start Date End Date Martina Strickland PA-C PCP - General Physician Cnc Mechanic 07/19/19 Ailin Zavala MD Internal Medicine 07/28/11 Amadeo King MD [address] [place] [address] Ophthalmology 12/22/19 Claudia Marcus MD [facility] [address] [place] [phone] Assigned Surgical Provider 03/01/20 05/25/20 Amadeo King MD [address] [place] [address] 493 [place] [address] Assigned PCP 04/07/20 06/02/23 Joseph Trivedi MD [facility] [address] [facility] 215 [place] [address] Rheumatology 05/21/20 Claudia Marcus MD [facility] [address] [place] [phone] Assigned Surgical Provider 06/30/20 10/19/20 Emma Deshpande MD [address] [place] [address] 305295 Assigned Surgical Provider 05/26/20 06/29/20 Kishan Spain, OD [address] [place] [phone] Assigned Surgical Provider 10/20/20 11/23/20 Emma Deshpande MD [address] [place] [address] Assigned Surgical Provider 11/24/20 12/07/20 Kishan Spain, OD [address] [place] [phone] Assigned Surgical Provider 12/08/20 03/27/22 Emma Deshpande MD [address] [place] [address] 710985 Assigned Surgical Provider 03/28/22 04/03/22 Rene Grant MD [address] [place] [address] [place] [address] Assigned Surgical Provider 04/04/22 08/21/22 Amadeo Winston MD [address] [place] [address] Assigned Surgical Provider 08/22/22 08/28/22 Amadeo Winston MD [address] [place] [address] Assigned Surgical Provider 09/05/22 09/11/22 Rene Grant MD [address] [place] [address] Assigned Surgical Provider 08/29/22 09/04/22 Rene Grant MD [address] [place] [address] Assigned Surgical Provider 09/12/22 documented as of this encounter
--- OUTSIDE RECORDS SUMMARY | 2024-01-06 11:44 | XMS_ITS | Encounter Summary ---
Author Organization [facility] Address [address] [place] [address]. [place] [address] Care Team Providers Care Automobile Painter Name Role Phone Ailin Zavala MD Unavailable [phone] Martina Strickland PA-C Primary Care Provider Amadeo King MD Unavailable [phone] Joseph Trivedi MD Unavailable [phone] Rene Grant MD Unavailable [phone] Encounter Details Date Type Department Care [...] PM CDT Office Visit [facility] Eye [address] 9 Sc Clin 9A [place] [address] Amadeo King MD 420 [facility] 493 [place] [address] 12/05/2024 3:00 PM CDT Office Visit [facility] Eye [facility] 516 [facility] Emergency Department 9th Fl Clin 9A [place] [address] Emma Deshpande MD 516 [facility] [address] 911 [place] [address] documented as of this encounter Visit Diagnoses Not on filedocumented in this encounter Care Teams Automobile Painter Relationship Specialty Start Date End Date Martina Strickland PA-C PCP - General Physician Handicraft Or Hobby Shop Manager 07/19/19 Ailin Zavala MD Internal Medicine 07/28/11 Amadeo [place] MD [address] [place] [address] 835275 Ophthalmology 12/22/19 Joseph Trivedi MD [facility] [address] [facility] 215 [place], [place] [address] Rheumatology 05/21/20 Rene Grant MD [address] [place] [address] 720805 Assigned Surgical Provider 09/12/22 documented as of this encounter
--- OUTSIDE RECORDS SUMMARY | 2024-01-06 11:44 | XMS_ITS | Encounter Summary ---
Author Organization [place] Address [address] [place] [address] Care Team Providers Care Barrel Header Name Role Phone Ailin Zavala MD Unavailable [phone] Martina Strickland PA-C Primary Care Provider Amadeo King MD Unavailable [phone] Claudia Marcus MD Unavailable [phone] Amadeo King MD Unavailable [phone] Joseph Trivedi MD Unavailable [phone] Claudia Marcus MD Unavailable [phone] [...] for return to work send back in [employer] Please Encounter Details Date Type Department Care Team ([facility] st Contact Info) Description 07/25/2019 Telephone [facility] 516 [facility] 9th Fl Clin 9A [place] [phone] Amadeo King MD 420 [facility] 493 [place] [address] Patient Request for Note/Letter (Pt needs the Exact date for return to work send back in [employer] Please) Social History Tobacco Use Types Packs/Day [...] back to work Please send back in [employer] Provider: Dr King Date form needed: JOSE MANUEL Once completed: Send back in [employer] Action Taken: Message routed to: [facility] eye Travel Screening: Not Applicable documented in this encounter Plan of Treatment Upcoming Encounters Date Type Department Care Team (Late st Contact Info) Description 01/17/2024 3:00 PM CDT Office Visit [facility] 516 [facility] 9th Fl Clin 9A [place] [phone] Amadeo King MD 420 [facility] 493 [place], [place] [address] 12/05/2024 3:00 PM CDT Office Visit [facility] [address] 9th Fl Clin 9[address] [place] [phone] Emma Deshpande MD 516 [facility] 911 [place], [place] 841315 documented as of this encounter Visit Diagnoses Not on filedocumented in this encounter Care Teams Barrel Header Relationship Specialty Start Date End Date Martina Strickland PA-C PCP - General Physician Pattern Maker Programer 07/19/19 Ailin Zavala MD Internal Medicine 07/28/11 Amadeo King MD [address] [place] [address] 493 [place], [place] 834585 Ophthalmology 12/22/19 Claudia Marcus MD [facility] [address] [place] [phone] Assigned Surgical Provider 03/01/20 05/25/20 Amadeo King MD [address] [place] [address] 493 [place] [address] Assigned PCP 04/07/20 06/02/23 Joseph Trivedi MD [facility] [address] [facility] 215 [place] [address] Rheumatology 05/21/20 Claudia Marcus MD [facility] [address] [place] [phone] Assigned Surgical Provider 06/30/20 10/19/20 Emma Deshpande MD [address] [place] [address] Assigned Surgical Provider 05/26/20 06/29/20 Kishan Spain, OD [address] [place] [phone] Assigned Surgical Provider 10/20/20 11/23/20 Emma Deshpande MD [address] [place] [address] 825505 Assigned Surgical Provider 11/24/20 12/07/20 Kishan Spain, OD [address] [place] [phone] Assigned Surgical Provider 12/08/20 03/27/22 Emma Deshpande MD [address] [place] [address] 694665 Assigned Surgical Provider 03/28/22 04/03/22 Rene Grant MD [address] [place] [address] 34[address] Assigned Surgical Provider 04/04/22 08/21/22 Amadeo Winston MD [address] [place] [address] 567265 Assigned Surgical Provider 08/22/22 08/28/22 Amadeo Winston MD [address] [place] [address] 068145 Assigned Surgical Provider 09/05/22 09/11/22 Rene Grant MD [address] [place] [address] [phone] Assigned Surgical Provider 08/29/22 09/04/22 Rene Grant MD [address] [place] [address] 423365 Assigned Surgical Provider 09/12/22 documented as of this encounter
--- OUTSIDE RECORDS SUMMARY | 2024-01-06 11:44 | XMS_ITS | Encounter Summary ---
Author Organization [facility] Address [address] [place] [address]. [place] [address] Care Team Providers Care Studio Manager Name Role Phone Ailin Zavala MD Unavailable [phone] Martina Strickland PA-C Primary Care Provider Amadeo King MD Unavailable [phone] Amadeo King MD Unavailable [phone] Joseph Trivedi MD Unavailable [phone] Kishan Spain OD Unavailable [phone] Emma Deshpande MD Unavailable [phone] Rene Grant MD Unavailable Amadeo Winston MD Unavailable [phone] Amadeo Winston MD Unavailable [phone] Rene Grant MD Unavailable [phone] Rene Grant MD Unavailable [phone] Reason for Visit * Reason Comments Medication Refill PREDNISOLONE ACET O/ DILSHAD 1% Encounter Details Date Type Department Care Team (Late st Contact Info) Description 05/28/2021 Refill [facility] - [address] 4th [place] [address] Silas Cody MD [facility]0 [place] [address] Medication Refill (PREDNISOLONE ACET O/DILSHAD [...] COVID-19? No / Unsure 05/29/2021 2:48 PM REIMBURSEMENT SPEC documented as of this encounter Miscellaneous Notes [...] Leo RN Central Triage Red Flags/Med Refills BURSEMENT SPEC documented in this encounter Plan of Treatment Upcoming Encounters Date Type Department Care Team (Late st Contact Info) Description 01/17/2024 3:00 PM CDT Office Visit [facility] 516 [facility] 9th [place] Clin 9A [place] [address] Amadeo King MD 420 [facility] 493 [place] [address] 12/05/2024 3:00 PM CDT Office Visit [facility] [place] [phone] [facility] Emergency Department 9th Nj Clin 9A [place] [phone] Emma Deshpande MD 516 [facility] 911 [place], [place] 874525 documented as of this encounter Visit Diagnoses 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 documented in this encounter Care Teams Studio Manager Relationship Specialty Start Date End Date Martina Strickland PA-C PCP - General Physician Fieldwork Coordinator 07/19/19 Ailin Zavala MD Internal Medicine 07/28/11 Amadeo King MD [address] [place] [address] 493 [place], [place] 343975 Ophthalmology 12/22/19 Amadeo King MD [address] [place] [address] 493 [place] [address] Assigned PCP 04/07/20 06/02/23 Joseph Trivedi MD [facility] [address] [facility] 215 [place], [place] 383235 Rheumatology 05/21/20 Kishan Spain OD 909 [facility] 4th [place] [phone] Assigned Surgical Provider 12/08/20 03/27/22 Emma Deshpande MD [address] [place] [address] 911 [place], [place] 660265 Assigned Surgical Provider 03/28/22 04/03/22 Rene Grant MD [address] [place] [address] 117495 Assigned Surgical Provider 04/04/22 08/21/22 Amadeo Winston MD [address] [place] [address] 298945 Assigned Surgical Provider 08/22/22 08/28/22 Amadeo Winston MD [address] [place] [address] 7[address] Assigned Surgical Provider 09/05/22 09/11/22 Rene Grant MD [address] [place] [address] 847425 Assigned Surgical Provider 08/29/22 09/04/22 Rene Grant MD [address] [place] [address] Assigned Surgical Provider 09/12/22 documented as of this encounter
--- OUTSIDE RECORDS SUMMARY | 2024-01-06 11:44 | XMS_ITS | Encounter Summary ---
Author Organization [place] Address [address] [place] [address] Care Team Providers Care Decorating Kiln Operator Name Role Phone Ailin Zavala MD Unavailable [phone] Ailin Zavala MD Primary Care Provider Martina [...] (Late st Contact Info) Description 04/25/2019 Telephone [facility] 516 [facility] 9 Ks Clin 9A [place] [phone] Candy Jett, DO 909 [place] [address] Prior Auth - Medication (CYCLOSPORINE 1% in [...] managed by the clinic staff and provider. ERCIAL HVAC SERVICE TECHNICIAN * Telephone Encounter - Amarilys Roberts - 05/18/2019 1:36 PM CST Insurance called for additional information. Answered and should receive an outcome by 05/19/18. Case# [id number] ERCIAL HVAC SERVICE TECHNICIAN * Telephone Encounter - Amarilys Roberts - 05/16/2019 1:19 PM CST Images from the original note were not included. Received addition form to fill out. Completed and faxed back with all original requests. ERCIAL HVAC SERVICE TECHNICIAN * Telephone Encounter - Amarilys Roberts - [...] suggest to re-fax to a different # [phone] (Benefit Coverage Review). According to the rep, the case has not been touched since the denial 05/08/19. Case # [id number].Re- faxed appeal again marked urgent. ERCIAL HVAC SERVICE TECHNICIAN * Telephone Encounter - Amarilys Roberts - 05/12/2019 12:22 PM CST Medication Appeal Initiation We have initiated an appeal for the requested medication: Medication: CYCLOSPORINE 1% in artificial tears- APPEAL Pending Appeal Start Date: 05/12/2019 Insurance Company: [employer] - Comments: Appeal letter faxed to [facility] [phone]. . ERCIAL HVAC SERVICE TECHNICIAN * Telephone Encounter - Amarilys Roberts - 05/08/2019 12:43 PM CST Images from the original note were not included. PRIOR AUTHORIZATION DENIED Medication: CYCLOSPORINE 1% in artificial tears- DENIED Denial Date: 05/08/2019 Denial Rational: Appeal Information: ERCIAL HVAC SERVICE TECHNICIAN * Telephone Encounter - Amarilys Roberts - 05/04/2019 11:24 AM CST Images from the original note were not included. Received message from insurance to have pharmacy run the main ingredient. Per pharmacy, previous NDC has been discontinued, therefore new NDC is requested to be covered. New NDC [id number]. Old NDC [phone]. Called insurance to have new NDC put on formulary. Refaxed request back stating this. Rep was just going to fax over a new PA form, but we had already fax one in, just refaxing with new information. ERCIAL HVAC SERVICE TECHNICIAN * Telephone Encounter - Vesna Baca - 05/04/2019 10:59 AM CST Rec'd a call from Armando @ [facility] pharmacy inquiring on status of P/A. Advised of the below. ERCIAL HVAC SERVICE TECHNICIAN * Telephone Encounter - Amarilys Roberts - 05/02/2019 11:28 AM CST Manually faxed PA request to [facility]. ERCIAL HVAC SERVICE TECHNICIAN * Telephone Encounter - Amarilys Roebrts - 04/25/2019 3:41 PM CST Images from the original note were not included. Central Prior Authorization Team PA Initiation Medication: CYCLOSPORINE 1% in artificial tears Insurance Company: [employer] - Pharmacy Filling the Rx: [id number] - [place], [place] - [address] [facility] [address] Filling Pharmacy Filling Pharmacy Fax: Start Date: 04/25/2019 ERCIAL HVAC SERVICE TECHNICIAN * Telephone Encounter - Martina Marcano - 04/25/2019 2:56 PM CST Images from the original note were not included. Medication is documented in the After Visit Summary under the media tab. ERCIAL HVAC SERVICE TECHNICIAN documented in this encounter Plan of Treatment Upcoming Encounters Date Type Department Care Team (Late st Contact Info) Description 01/17/2024 3:00 PM CDT Office Visit [facility] [place] [address] [facility] 9[facility] Clin 9A [place] [address] Amadeo King MD 420 [facility] 493 [place], [place] 477[address] 12/05/2024 3:00 PM CDT Office Visit [facility] - [address] 9[facility] 9A [place] [address] Emma Deshpande MD [address] [place] [address] 911 [place], [place] [address]75 documented as of this encounter Visit Diagnoses Not on filedocumented in this encounter Care Teams Decorating Kiln Operator Relationship Specialty Start Date End Date Ailin Zavala MD PCP - General Internal Medicine 07/28/11 07/18/19 Martina Strickland PA-C PCP - General Physician Tea Blender 07/19/19 Ailin Zavala MD Internal Medicine 07/28/11 Amadeo King MD [address] [place] [address] 493 [place], [place] 367325 Ophthalmology 12/22/19 Claudia Marcus MD [facility] [address] [place] [phone] Assigned Surgical Provider 03/01/20 05/25/20 Amadeo King MD 420 [facility] 493 [place], [place] [phone] Assigned PCP 04/07/20 06/02/23 Joseph Trivedi MD [facility] [address] [facility] 215 [place] [address] Rheumatology 05/21/20 Claudia Marcus MD [facility] [address] [place] [phone] Assigned Surgical Provider 06/30/20 10/19/20 Emma Deshpande MD [address] [place] [address] 911 [place] [address] Assigned Surgical Provider 05/26/20 06/29/20 Kishan Spain, ANDI [address] [place] [phone] Assigned Surgical Provider 10/20/20 11/23/20 Emma Deshpande MD 6 [facility] 911 [place], [place] [phone] Assigned Surgical Provider 11/24/20 12/07/20 Kisahn Spain, OD [address] [place] [phone] Assigned Surgical Provider 12/08/20 03/27/22 Emma Deshpande MD [address] [place] [address] 911 [place] [address] Assigned Surgical Provider 03/28/22 04/03/22 Rene Grant MD [address] [place] [address] 16185 Assigned Surgical Provider 04/04/22 08/21/22 Amadeo Winston MD [address] [place] [address] Assigned Surgical Provider 08/22/22 08/28/22 Amadeo Winston MD [address] [place] [address] Assigned Surgical Provider 09/05/22 09/11/22 Rene Grant MD [address] [place] [address] Assigned Surgical Provider 08/29/22 09/04/22 Rene Grant MD [address] [place] [address] 38146 Assigned Surgical Provider 09/12/22 documented as of this encounter
--- NOTE | 2024-01-06 11:45 | CRLHL7_ITS ---
For Patients: As a result of the Century Cures Act, medical imaging exams and procedure reports are released immediately into your electronic medical record. You may view this report before your referring provider. If you have questions, please contact your health care provider. BILATERAL SCREENING MAMMOGRAM WITH COMPUTER-AIDED DETECTION AND TOMOSYNTHESIS TECHNIQUE: CC and MLO views were obtained. These mammographic images have been obtained using full-field digital technique. These mammographic images were interpreted with the benefit of computer-aided detection. Breast Tomosynthesis was used in this interpretation. COMPARISON FILM: 01/20/22, 01/01/21, 12/20/19. FINDINGS: The breasts are almost entirely fatty. IMPRESSION: There is no radiographic evidence for malignancy. ASSESSMENT: BI-RADS Category 1: Negative RECOMMENDATION: Routine screening mammogram in 1 year. A lay language report of this examination will be provided to the patient. Sarthak Oliver M.D. Diagnostic Radiologist [email or web address] SP/Dictated by: Sarthak Oliver MD @ 01/06/2024 12:17:00 PM (Electronically Signed)
--- OUTSIDE RECORDS SUMMARY | 2024-01-06 11:45 | XMS_ITS | Encounter Summary ---
Author Organization [place] Address [address] [place] [address] Care Team Providers Care Hospice Volunteer Name Role Phone Ailin Zavala MD Unavailable [phone] Ailin Zavala MD Primary Care Provider Martina [...] Team (Late Contact Info) Description 11/18/[address] 9[address] [place] [address] Hailee Stone MD Social History Tobacco Use [...] Description 01/17/2024 3:00 PM CDT Office Visit [address] 9[facility] 9A [place] [address] Amadeo King MD [address] [place] [address] [facility] 493 [place] [address] 12/05/2024 3:00 PM CDT Office Visit [address] 9[facility] 9A [place] [address] Emma Deshpande MD 6 [facility] [address] 911 [place], [place] 476745 documented as of this encounter Visit Diagnoses Not on filedocumented in this encounter Care Teams Hospice Volunteer Relationship Specialty Start Date End Date Ailin Zavala MD PCP - General Internal Medicine 07/28/11 07/18/19 Martina Strickland PA-C PCP - General Physician Manufacturing Operations Manager 07/19/19 Ailin Zavala MD Internal Medicine 07/28/11 Amadeo King MD 420 [facility] 493 [place], [place] [address] Ophthalmology 12/22/19 Claudia Marcus MD [facility]YE [facility] [address] [place] [phone] Assigned Surgical Provider 03/01/20 05/25/20 Amadeo King MD 420 [facility] 493 [place], [place] 198455 Assigned PCP 04/07/20 06/02/23 Joseph Trivedi MD [facility] [address] [facility] 215 [place], [place] [address] Rheumatology 05/21/20 Claudia Marcus MD [facility] EYE [facility] [address] [place] [address] Assigned Surgical Provider 06/30/20 10/19/20 Emma Deshpande MD 516 [facility] 911 [place], [place] [phone] Assigned Surgical Provider 05/26/20 06/29/20 Kishan Spain, OD [address] [phone] Assigned Surgical Provider 10/20/20 11/23/20 Emma Deshpande MD [address] [place] [address]69 Assigned Surgical Provider 11/24/20 12/07/20 Kishan Spain, OD [address] [place] [phone] Assigned Surgical Provider 12/08/20 03/27/22 Emma Deshpande MD [address] [place] [address] 18628 Assigned Surgical Provider 03/28/22 04/03/22 Rene Grant MD [address] [place] [address]167 Assigned Surgical Provider 04/04/22 08/21/22 Amadeo Winston MD [address] [place] [address] Assigned Surgical Provider 08/22/22 08/28/22 Amadeo Winston MD [address] [place] [address] 36053 Assigned Surgical Provider 09/05/22 09/11/22 Rene Grant MD [address] [place] [address] 28249 Assigned Surgical Provider 08/29/22 09/04/22 Rene Grant MD [address] [place] [address] 46228 Assigned Surgical Provider 09/12/22 documented as of this encounter
--- OUTSIDE RECORDS SUMMARY | 2024-01-06 11:45 | XMS_ITS | Encounter Summary ---
Author Organization [place] Address [address] [place] [address] Care Team Providers Care Pathology Collector Name Role Phone Ailin Zavala MD Unavailable [phone] Ailin Zavala MD Primary Care Provider Martina [...] Team (Late Contact Info) Description 09/12/2018 Telephone [facility] [place] 070716 [facility] 9th Ca Clin 9A [place] [phone] None Referral Social History Tobacco Use Types [...] Demi Judge - 09/12/2018 8:20 AM CDT [facility] Call [facility] Phone Message May a detailed message be left on voicemail: yes Reason for Call: Other: 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 Lesa Llamas at [facility]. To be seen within the week and a corneal visitfor next week. Call to schedule, faxing notes Action Taken: Message routed to: [facility] documented in this encounter Plan of Treatment Upcoming Encounters Date Type Department Care Team (Late st Contact Info) Description 01/17/2024 3:00 PM CDT Office Visit [facility] [place] [address] 9th [facility] 9A [place] [phone] Amadeo King MD [address] [place] [address] 12/05/2024 3:00 PM CDT Office Visit [facility] [place] 070716 [facility] 9th Fl Clin 9A [place] [address] Emma Deshpande MD 516 [facility] [address] [place], [place] [address] documented as of this encounter Visit Diagnoses Not on filedocumented in this encounter Care Teams Pathology Collector Relationship Specialty Start Date End Date Ailin Zavala MD PCP - General Internal Medicine 07/28/11 07/18/19 Martina Strickland PA-C PCP - General Physician Android Architect 07/19/19 Ailin Zavala MD Internal Medicine 07/28/11 Amadeo King MD 420 [facility] 493 [place], [place] [address] Ophthalmology 12/22/19 Claudia Marcus MD [facility] [address] [place] [address] Assigned Surgical Provider 03/01/20 05/25/20 Amadeo King MD 420 [facility] 493 [place], [place] [address]395 Assigned PCP 04/07/20 06/02/23 Joseph Trivedi MD [facility] [address] [facility] 215 [place] [address] Rheumatology 05/21/20 Claudia Marcus MD [facility] [address] [place] [phone] Assigned Surgical Provider 06/30/20 10/19/20 Emma Deshpande MD [address] [place] [address] 233905 Assigned Surgical Provider 05/26/20 06/29/20 Kishan Spain, OD [address] [place] [phone] Assigned Surgical Provider 10/20/20 11/23/20 Emma Deshpande MD [address] [place] [address] [phone] Assigned Surgical Provider 11/24/20 12/07/20 Kishan Spain, OD [address] [place] [phone] Assigned Surgical Provider 12/08/20 03/27/22 Emma Deshpande MD [address] [place] [address] 626845 Assigned Surgical Provider 03/28/22 04/03/22 Rene Grant MD [address] [place] [address] 166505 Assigned Surgical Provider 04/04/22 08/21/22 Amadeo Winston MD [address] [place] [address]3887 Assigned Surgical Provider 08/22/22 08/28/22 Amadeo Winston MD [address] [place] [address] 81096 Assigned Surgical Provider 09/05/22 09/11/22 Rene Grant MD [address] [place] [address] 82616 Assigned Surgical Provider 08/29/22 09/04/22 Rene Grant MD [address] [place] [address] [phone] Assigned Surgical Provider 09/12/22 documented as of this encounter
--- OUTSIDE RECORDS SUMMARY | 2024-01-06 11:45 | XMS_ITS | Encounter Summary ---
Author Organization [place] Address [address] [place] [address] Care Team Providers Care Art History Instructor Name Role Phone Ailin Zavala MD Unavailable [phone] Ailin Zavala MD Primary Care Provider Martina [...] (Late Contact Info) Description 10/01/2018 Office Visit [place] [id number] [facility] [address] [place] [phone] Gonzalez Perry MD [facility] 8450 [place] [address] Aqueous misdirection, right - Right Eye (Primary [...] Description 01/17/2024 3:00 PM CDT Office Visit [address] [facility] [address] [place] [phone] Amadeo King MD 420 [facility] 493 [place], [place] [address] 12/05/2024 3:00 PM CDT Office Visit [place] 319136 [facility] [address] [place] [phone] Emma Deshpande MD 516 [facility] 911 [place], [place] [phone] documented as of this encounter Visit Diagnoses Diagnosis Aqueous misdirection, 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 - Right Eye Other states following surgery of eye and adnexa 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 Unspecified glaucoma documented in this encounter Care Teams Art History Instructor Relationship Specialty Start Date End Date Ailin Zavala MD PCP - General Internal Medicine 07/28/11 07/18/19 Martina Strickland PA-C PCP - General Physician Plater Hot Dip 07/19/19 Ailin Zavala MD Internal Medicine 07/28/11 Amadeo King MD [address] [place] [address] [phone] Ophthalmology 12/22/19 Claudia Marcus MD [facility] EYE [facility] [address] [phone] Assigned Surgical Provider 03/01/20 05/25/20 Amadeo King MD [address] [place] [address] [phone] Assigned PCP 04/07/20 06/02/23 Joseph Trivedi MD [facility] [address] [place] [address] [address] [phone] Rheumatology 05/21/20 Claudia Marcus MD [facility] EYE [facility] [address] [phone] Assigned Surgical Provider 06/30/20 10/19/20 Emma Deshpande MD [address] [place] [address] Assigned Surgical Provider 05/26/20 06/29/20 Kishan Spain, OD [address] [place] [phone] Assigned Surgical Provider 10/20/20 11/23/20 Emma Deshpande MD [address] [place] [address] Assigned Surgical Provider 11/24/20 12/07/20 Kishan Spain, OD [address] [place] [phone] Assigned Surgical Provider 12/08/20 03/27/22 Emma Deshpande MD [address] [place] [address] [phone] Assigned Surgical Provider 03/28/22 04/03/22 Rene Grant MD [address] [place] [address] [phone] Assigned Surgical Provider 04/04/22 08/21/22 Amadeo Winston MD [address] [place] [address] Assigned Surgical Provider 08/22/22 08/28/22 Amadeo Winston MD [address] [place] [address] [phone] Assigned Surgical Provider 09/05/22 09/11/22 Rene Grant MD [address] [place] [address] [phone] Assigned Surgical Provider 08/29/22 09/04/22 Rene Grant MD 6 [place], [place] [phone] Assigned Surgical Provider 09/12/22 documented as of this encounter
== END 2024-01-06 11:41 | disposition home or self-care (01) ==
LOC: MAMMO 11:40
PROVIDERS: PCP Physician Assistant Medical; Visit Provider Physician Assistant Medical
DX: Z12.31 Encounter for screening mammogram for malignant neoplasm of breast (principal)
CPT/HCPCS: 77063; 77067

== ENCOUNTER 2024-09-27 19:29 | Emergency (ER) | payer OTHER, SELFPAY ==
--- OUTSIDE RECORDS SUMMARY | 2021-01-21 10:30 | XMS_ITS | Continuity of Care Document ---
Author Organization [facility] Address [address] [address] [place] [address] Phone Care Team Providers Care Saw Cleaner Name Role Phone Farooq RAGLANDBertramJoseph Unavailable Unavailable Allergies, Adverse Reactions, Alerts Substance Reaction Status Criticality lidocaine Active No Information Medications Medication Instructions Dosage Effective Dates (start - stop) Status Comments mycophenolate mofetil 500 mg tablet take 1 Tablet by oral route 2 times every day 500 MG - Active Restasis MultiDose 0.05 % eye drops instill 1 drop by ophthalmic route every 12 hours into affected eye(s) 1.00 drop - Active omeprazole 10 mg capsule,delayed release take 1 capsule by oral route every day before a meal 10 MG - Active Combigan 0.2 %-0.5 % eye drops instill 1 drop by ophthalmic route every 12 hours into affected eye(s) 1.00 drop - Active tacrolimus 0.1 % topical ointment apply by topical route 3 times every day to the affected area(s) Not Available - Active prednisolone acetate 1 % eye drops,suspension instill 1 drop by ophthalmic route 2 times every day into affected eye(s) OD - Active metformin ER 500 mg tablet,extended release 24hr take 1 tablet by oral route 4 times every day with the evening meal 500 MG - Active LEVOTHYROXINE SODIUM (unknown strength) take 1 tablet by oral route every day Not Available - Active RESTASIS MULTIDOSE (unknown strength) instill 1 drop by ophthalmic route every 12 hours into affected eye(s) Not Available - No Longer Active Procedures Procedure Date Office/Outpatient Visit, Est Office/Outpatient Visit, Est Routine Venipuncture Specimen Handling Assay Of Serum Albumin Assay Of Creatinine Transferase (Ast) (Sgot) Alanine Amino (Alt) (Sgpt) Office/Outpatient Visit, Est Office/Outpatient Visit, Est Office/Outpatient Visit, Est Office/Outpatient Visit, New Advance Directives Directive Yes / No Effective Date File Name No Information Encounters Encounter Description Practice Location Reason(s) For Visit Diagnoses Date Provider Providers Copied on Encounter Office/Outpa tient Visit, Est [facility] , [address], [place], [address], [place] tel:[phone] [facility] , Corneal transplant monitor Chronic High Risk Meds (chief complaint) Unspecified complication of corneal transplant, right eyeUnspecifi ed pterygium of right eyeUnspecifi ed complication of corneal transplantOt her shelter (current) drug therapy 1 Farooq Ruiz. [facility] [address], [place], [address], [place]. tel:[phone] Referring Provider: Joseph Martin, [facility] [address], [place], [address]. tel:[phone] Office/Outpa tient Visit, Est [facility] , [address], [place], [address], [place] tel:[phone] [facility] , Corneal transplant monitor Chronic High Risk Meds (chief complaint) Unspecified pterygium of right eyeUnspecifi ed complication of corneal transplantOt her intermodal dispatcher (current) drug therapyUnspe cified complication of corneal transplant, right eye 1 Farooq Ruiz. [facility] [address], [place], [address], [place]. tel:[phone] Referring Provider: Joseph Martin, [facility] [address], [place], [address]. tel:[phone] Office/Outpa tient Visit, Est [facility] , [address], [place], [address], [place] tel:[phone] [facility] , Unspecified pterygium of right eyeUnspecifi ed complication of corneal transplantOt her shelter (current) drug therapy 0 Farooq Ruiz. [facility] [address], [place], [address], [place]. tel:[phone] Referring Provider: Joseph Martin, [facility] [address], [place], [address]. tel:[phone] Office/Outpa tient Visit, Est [facility] , [address], [place], [address], [place] tel:[phone] [facility] , Unspecified pterygium of right eyeUnspecifi ed complication of corneal transplantOt her shelter (current) drug therapy 0 Farooq Ruiz. [facility] [address], [place], [address], [place]. tel:[phone] Specialist: Amadeo King, [facility] [address], [place], [address]. tel:[phone] ng Provider: Joseph Martin, [facility] [address], [place], [address]. tel:[phone] Office/Outpa tient Visit, Est [facility] , [address], [place], [address], [place] tel:[phone] [facility] , Unspecified pterygium of right eyeUnspecifi ed complication of corneal transplantOt her intermodal dispatcher (current) drug therapy 9 Farooq Ruiz. [facility] [address], [place], [address], [place]. tel:[phone] Specialist: Amadeo King, [facility] [address], [place], [address]. tel:[phone] ng Provider: Joseph Martin, [facility] [address], [place], [address]. tel:[phone] Office/Outpa tient Visit, New [facility] , [address], [place], [address], [place] tel:[phone] [facility] , Unspecified complication of corneal transplantUn specified pterygium of right eyeOther shelter (current) drug therapy 9 Farooq Ruiz. [facility] [address], [place], [address], [place]. tel:[phone] Referring Provider: Joseph Martin, [facility] [address], [place], [address]. tel:[phone] Family History Family Member Type Diagnosis Age At Onset Mother Problem (finding) Arthritis Immunizations Vaccine Date Status Comments COVID-19 Pfizer administered Source: Ot[place] r Provider COVID-19 Pfizer administered Source: Othe r Provider Payers Payer name Insurance type Covered green party ID Authoriza tion(s) [employer] CI [id number] Social History Type Description Quantity Date Captured Comments Alcohol Use Details Unknown Caffeine Use Details Unknown Tobacco Use Status Current non-smoker Smoking Status Never smoker Non-Smoking Tobacco Use Details : No Details Available : No Details Available Sex Female Vital Signs Date / Time: Height Weight BMI Pulse Rate Blood Pressure Temperature Respiratory Rate Body Surface Area Head Circumference Head Circ. Percentile Wt./Devendra. Percentile BMI percentile Pulse Ox Inhaled Ox 3:49 PM 63.00 in 100.244 kg (221.00 lbs) 39.1 5 kg/m eter (2) 126/77 mm[Hg] 97.70 F Chief Complaint And Reason For Visit From encounter dated '01/21/2021 15:30'. Corneal transplant monitor Chronic High Risk Meds (chief complaint) Reason For Referral Reason For Referral No Information History Of Present Illness Encounter Date Complaint History Of Prese nt Illness Corneal transplant m onitor Chronic High Risk Meds Corneal transplant m onitor Chronic High Risk Meds Functional Status Date Functional Assessmen t No Information Instructions Date Instruction Additional Infor mation No Information Assessments Type Assessment Date assessment Unspecified complication of corn eal transplant, right eye assessment Unspecified pterygium of right e ye assessment Unspecified complication of corn eal transplant assessment 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 Patient Care Teams Name Effective Dates (start - stop) Status Members No Information
--- OUTSIDE RECORDS SUMMARY | 2024-08-15 17:25 | XMS_ITS | Encounter Summary ---
Author Organization [place] Address [address] [place] [address]. [place] [address] Care Team Providers Care Partner Integration Planner Name Role Phone Ailin Zavala MD Unavailable [phone] Martina Strickland PA-C Primary Care Provider Amadeo King MD Unavailable [phone] Joseph Trivedi MD Unavailable [phone] Rene Grant MD Unavailable [phone] Manju Perkins RN Unavailable Unavaila Martine Sr MD Unavailable [phone] Encounter Details Date Type Department Care Team (Late st Contact Info) Description 08/15/2024 5:[address] 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 Yes 07/04/2024 Within the past 12 months, h ave you been hit, slapped, kicked or otherwise physically hurt by someone? No 07/04/2024 Within the past 12 months, h ave you been humiliated or emotionally abused in other ways by your partner or ex-partner? 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 Gender Identity Female 2019 10:10 AM CDT Sexual Orientation Straight 2019 10 :10 AM CDT documented as of this encounter Plan of Treatment Upcoming Encounters Date Type Department Care Team (Late st Contact Info) Description 09/29/2024 4:05 PM CDT Office Visit [facility] 909 [place] [phone] Martine Rios MD 500 [place], [place] [phone] 09/29/2024 5:30 PM CDT Ancillary Procedure [facility] 909 [facility] 1st [place] [phone] Martine Rios MD 500 [place], [place] [phone] 10/30/2024 3:00 PM CDT Office Visit [facility] 516 [facility] 9th Ne Clin 9A [place] [phone] Amadeo King MD 420 [facility] 493 [place], [place] [phone] 12/05/2024 3:00 PM CDT Office Visit [facility] 516 [facility] 9th [facility] 9A [place] [phone] Emma Deshpande MD 516 [facility] 911 [place] [address] documented as of this encounter Procedures Procedure Name Priority Date/Time Associated Diagnosis Comments CBC WITH PLATELETS AND DIFFERENTIAL Routine 08/15/2024 5:34 PM CDT 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, unspecified laterality 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 Other specified postprocedural states CBC WITH PLATELETS & DIFFERENTIAL Routine 08/15/2024 5:34 PM CDT 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, unspecified laterality jail use of drug Other specified postprocedural states TACROLIMUS BY TANDEM MASS SPECTROMETRY Routine 08/15/2024 5:34 PM CDT 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, unspecified laterality 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5 - 36.5 g/dL 08/15/2024 5:40 PM CDT [facility] RDW 15.5(H) 10.0 - 15.0 % 08/15/2024 5:40 PM CDT [facility] Platelet Count 232 150 - 450 10e3/uL 08/15/2024 5:40 PM CDT [facility] % Neutrophils 78 % 08/15/2024 5:40 PM CDT [facility] % Lymphocytes 18 % 08/15/2024 5:40 PM CDT [facility] % Monocytes 3 % 08/15/2024 5:40 PM CDT [facility] % Eosinophils 0 % 08/15/2024 5:40 PM CDT [facility] % Basophils 0 % 08/15/2024 5:40 PM CDT [facility] % Immature Granulocytes 1 % 08/15/2024 5:40 PM CDT [facility] NRBCs per 100 WBC 0 <1 /100 025 5:40 PM CDT [facility] Absolute Neutrophils 6.6 1.6 - 8.3 10e3/uL 08/15/2024 5:40 PM CDT [facility] Absolute Lymphocytes 1.5 0.8 - 5.3 10e3/uL 08/15/2024 5:40 PM CDT [facility] Absolute Monocytes 0.2 0.0 - 1.3 10e3/uL 08/15/2024 5:40 PM CDT [facility] Absolute Eosinophils 0.0 0.0 - 0.7 10e3/uL 08/15/2024 5:40 PM CDT [facility] Absolute Basophils 0.0 0.0 - 0.2 10e3/uL 08/15/2024 5:40 PM CDT [facility] Absolute Immature Granulocytes 0.0 <=0.4 10e3/uL 08/15/2024 5:40 PM CDT [facility] Absolute NRBCs 0.0 10e3/uL 08/15/2024 5:40 PM CDT [facility] Blood STRUCTURE OF RIGHT UPPER LIMB / Unknown Venipuncture / Unknown 08/15/2024 5:34 PM CDT 08/15/2024 5:34 PM CDT us Martine Rios MD LAB - BLOOD ORDERABLES Final Result [facility] [address] (1st floor, no room number) [place] [address], [facility] * Tacrolimus by Tandem Mass Spectrometry (08/15/2024 5:34 PM CDT) Tacrolimus by Tandem Mass Spectrometry 9.9 5.0 - 15.0 ug/L 08/15/2024 9:56 PM CDT [facility] Comment: Tacrolimus Reference Range (ug/L): Kidney Transplant: Pediatric 0-3 months post transplant: 10-12 3-6 months post transplant: 8-10 6-12 months post transplant: 6-8 >12 months post transplant: 4-7 Adult 0-6 months post transplant: 8-10 6-12 months post transplant: 6-8 >12 months post transplant: 4-6 >5 years post transplant: 3-5 Heart Transplant: Pediatric 0-12 months post transplant: 10-15 >12 months post transplant: 5-10 Adult 0-3 months post transplant: 10-15 3-6 months post transplant: 8-12 6-12 months post transplant: 6-12 >12 months post transplant: 6-10 Lung Transplant: 0-12 months post transplant: 10-15 >12 months post transplant: 8-12 Liver Transplant: Pediatric 0-3 months post transplant: 10-15 3-6 months post transplant: 8-10 6 months-5 years post transplant: 6-8 >5 years post transplant: 1-3 Adult 0-3 months post transplant: 10-12 3-6 months post transplant: 8-10 >6 months post transplant: 6-8 Pancreas Transplant: 0-6 months post transplant: 8-10 >6 months post transplant: 5-8 Tacrolimus Last Dose Date 08/15/2024 08/15/2024 9:56 PM CDT [facility] Tacrolimus Last Dose Time 6:30 AM 08/15/2024 9:56 PM CDT [facility] Blood STRUCTURE OF RIGHT UPPER LIMB / Unknown Venipuncture / Unknown 08/15/2024 5:34 PM CDT 08/15/2024 5:34 PM CDT Narrative [facility] - 08/15/2024 9:56 PM CDT This test was developed and its performance characteristics determined by the [facility], Special Chemistry Laboratory. It has not been cleared or approved by the FDA. The laboratory is regulated under CLIA as qualified to perform high-complexity testing. This test is used for clinical purposes. It should not be regarded as investigational or for research. Martine Rios MD LAB - BLOOD ORDERABLES Final Result [facility] [address] [facility], Room [address] [place] [phone] * (ABNORMAL) Basic metabolic panel (08/15/2024 5:34 PM CDT) Sodium 139 135 - 145 mmol/L 08/15/2024 5:56 PM CDT LABORATORY Potassium 4.7 3.4 - 5.3 mmol/L 08/15/2024 5:56 PM CDT LABOR[facility]ORY Chloride 106 98 - 107 mmol/L 08/15/2024 5:56 PM CDT LABOR[facility]ORY Carbon Dioxide (CO2) 19(L) 22 - 29 mmol/L 08/15/2024 5:56 PM CDT [facility] Anion Gap 14 7 - 15 mmol/L 08/15/2024 5:56 PM CDT [facility] Urea Nitrogen 31.0(H) 8.0 - 23.0 mg/dL 08/15/2024 5:56 PM CDT [facility] Creatinine 1.01(H) 0.51 - 0.95 mg/dL 08/15/2024 5:56 PM CDT LABORATORY GFR Estimate 64 >60 mL/min/1.7 3m2 08/15/2024 5:56 PM CDT [facility] Comment:eGFR calculated us2020 CKD-EPI equation. Calcium 9.6 8.8 - 10.4 mg/dL 08/15/2024 5:56 PM CDT LABORATORY Glucose 101(H) 70 - 99 mg/dL 08/15/2024 5:56 PM CDT [facility] Blood STRUCTURE OF RIGHT UPPER LIMB / Unknown Venipuncture / Unknown 08/15/2024 5:34 PM CDT 08/15/2024 5:34 PM CDT Martine Rios MD LAB - BLOOD ORDERABLES Final Result [facility] Lab [address] [facility] Lab (1st floor, no room number) [place] [address], [facility] documented in this encounter Visit Diagnoses Diagnosis Limbal stem cell deficiency, unspecified laterality Immunosuppressed status Unspecified disorder of immune mechanism 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 Encounter for long-term (current) use of other medications Other specified postprocedural states documented in this encounter Care Teams Partner Integration Planner Relationship Specialty Start Date End Date Martina Strickland PA-C PCP - General Physician Electronic Resources Librarian 07/19/19 Ailin Zavala MD Internal Medicine 07/28/11 Amadeo King MD [address] [place] [address] [phone] Ophthalmology 12/22/19 Joseph Trivedi MD [facility] [address] [place], [place] 5[address] Rheumatology 05/21/20 Rene Grant MD [address] [place] [address] [phone] Assigned Surgical Provider 09/12/22 Manju Perkins, JENNIFER Registered Nurse 05/24/24 Martine Rios MD [address] [place] [address] [phone] Assigned Nephrology Provider 07/02/24 documented as of this encounter
--- OUTSIDE RECORDS SUMMARY | 2024-08-22 17:10 | XMS_ITS | Encounter Summary ---
Author Organization [place] Address [address] [place] [address]. [place] [address] Care Team Providers Care Best Second Jobs Name Role Phone Ailin Zavala MD Unavailable [phone] Martina Strickland PA-C Primary Care Provider Amadeo King MD Unavailable [phone] Joseph Trivedi MD Unavailable [phone] [facility] Unavailable [phone] Manju Perkins RN Unavailable Unavaila Martine Sr MD Unavailable [phone] Encounter Details Date Type Department Care Team (Late st Contact Info) Description 08/22/2024 5:10 PM CDT Lab [facility] [address] [place] [phone] Limbal stem cell deficiency Social History Tobacco Use Types Packs/Day Years [...] AM CDT 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 Gender Identity Female 2019 10:10 AM CDT Sexual Orientation Straight 2019 10 :10 AM CDT documented as of this encounter Plan of Treatment Upcoming Encounters Date Type Department Care Team (Late st Contact Info) Description 09/29/2024 4:05 PM CDT Office Visit [facility] 909 [place] [phone] Martine Rios MD 500 [place], [place] [address] 09/29/2024 5:30 PM CDT Ancillary Procedure [facility] 909 [facility] 1st [place] [phone] Martine Rios MD 500 [place], [place] [phone] 10/30/2024 3:00 PM CDT Office Visit [facility] - [place] [phone] [facility] 9th Dc Clin 9A [place] [phone] Amadeo King MD 420 [facility] 493 [place], [place] [phone] 12/05/2024 3:00 PM CDT Office Visit [facility] Eye [facility] 516 [facility] 9th Dc Clin 9A [place] [phone] Emma Deshpande MD 516 [facility] [address] [place], [place] [phone] documented as of this encounter Procedures Procedure Name Priority Date/Time Associated Diagnosis Comments MYCOPHENOLIC ACID BY TANDEM MASS SPECTROMETRY Routine 08/22/2024 5:33 PM CDT 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 Results * Mycophenolic Acid by Tandem Mass Spectrometry (08/22/2024 5:33 PM CDT) Mycophenolic Acid by Tandem Mass Spectrometry 1.10 1.00 - 3.50 mg/L 08/23/2024 8:25 PM CDT [facility] MPA Glucuronide by Tandem Mass Spectrometry 46.6 30.0 - 95.0 mg/L 08/23/2024 8:25 PM CDT [facility] Mycophenolic Acid Last Dose Date 08/22/2024 08/23/2024 8:25 PM CDT [facility] Mycopheolic Acid Last Dose Time 6:30 AM 08/23/2024 8:25 PM CDT [facility] Blood STRUCTURE OF RIGHT UPPER LIMB / Unknown Venipuncture / Unknown 08/22/2024 5:33 PM CDT 08/22/2024 5:33 PM CDT Narrative [facility] - 08/23/2024 8:25 PM CDT This test was developed and its performance characteristics determined by the [facility], Special Chemistry Laboratory. It has not been cleared or approved by the FDA. The laboratory is regulated under CLIA as qualified to perform high-complexity testing. This test is used for clinical purposes. It should not be regarded as investigational or for research. 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 Care Teams Best Second Jobs Relationship Specialty Start Date End Date Martina Strickland PA-C PCP - General Physician Transmission And Coordination Engineer 07/19/19 Ailin Zavala MD Internal Medicine 07/28/11 Amadeo King MD 420 [facility] 493 [place] [address] Ophthalmology 12/22/19 Joseph Trivedi MD [facility] [address] [place], [place] 6[address] Rheumatology 05/21/20 Rene Grant MD 516 [place] [address] Assigned Surgical Provider 09/12/22 Manju Perkins, JENNIFER Registered Nurse 05/24/24 Martnie Rios MD 500 [place] [address] Assigned Nephrology Provider 07/02/24 documented as of this encounter
--- OUTSIDE RECORDS SUMMARY | 2024-08-29 16:45 | XMS_ITS | Encounter Summary ---
Author Organization [facility] Address [address] [place] [address]. [place] [address] Care Team Providers Care Cafe Helper Name Role Phone Ailin Zavala MD Unavailable [phone] Martina Strickland PA-C Primary Care Provider Amadeo King MD Unavailable [phone] Joseph Trivedi MD Unavailable [phone] Rene Grant MD Unavailable [phone] Manju Perkins RN Unavailable Unavaila Martine Sr MD Unavailable [phone] Encounter Details Date Type Department Care Team (Late st Contact Info) Description 08/29/2024 4:45 PM CDT Lab [facility] [address] [place] [phone] Limbal stem cell deficiency; Immunosuppressed status; Limbal stem cell deficiency, unspecified laterality; 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 Yes 08/30/2024 Within the past 12 months, h ave you been hit, slapped, kicked or otherwise physically hurt by someone? No 08/30/2024 Within the past 12 months, h ave you been humiliated or emotionally abused in other ways by your partner or ex-partner? 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 Gender Identity Female 2019 10:10 AM CDT Sexual Orientation Straight 2019 10 :10 AM CDT documented as of this encounter Plan of Treatment Upcoming Encounters Date Type Department Care Team (Late st Contact Info) Description 09/29/2024 4:05 PM CDT Office Visit [facility] [address] [place] [phone] Martine Rios MD [address] [place], [place] [phone] 09/29/2024 5:30 PM CDT Ancillary Procedure [facility] 9[address] [facility] 1st [place] [phone] Martine Rios MD [address] [place], [place] [address] 10/30/2024 3:00 PM CDT Office Visit [facility] - [facility] [address] [facility] 9[address] [facility] [address] [place] [phone] Amadeo King MD [address] [facility] [address] [place], [place] [phone] 12/05/2024 3:00 PM CDT Office Visit [facility] Eye [facility] [address] [facility] 9th [facility] [address] [place] [phone] Emma Deshpande MD [address] [address] [address] documented as of this encounter Procedures Procedure Name Priority Date/Time Associated Diagnosis Comments CBC WITH PLATELETS AND DIFFERENTIAL Routine 08/29/2024 5:33 PM CDT 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, unspecified laterality 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 Other specified postprocedural states CBC WITH PLATELETS & DIFFERENTIAL Routine 08/29/2024 5:33 PM CDT 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, unspecified laterality nursing home use of drug Other specified postprocedural states TACROLIMUS BY TANDEM MASS SPECTROMETRY Routine 08/29/2024 5:33 PM CDT 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, unspecified laterality 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 Other specified postprocedural states BASIC METABOLIC PANEL Routine 08/29/2024 5:33 PM CDT 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, unspecified laterality nursing home use of drug Other specified postprocedural states documented in this encounter Results * (ABNORMAL) CBC with platelets and differential (08/29/2024 5:33 PM CDT) WBC Count 6.7 4.0 - 11.0 10e3/uL 08/29/2024 5:36 PM CDT [facility] RBC Count 3.77(L) 3.80 - 5.20 10e6/uL 08/29/2024 5:36 PM CDT [facility] Hemoglobin 11.6(L) 11.7 - 15.7 g/dL 08/29/2024 5:36 PM CDT [facility] Hematocrit 34.8(L) 35.0 - 47.0 % 08/29/2024 5:36 PM CDT [facility] MCV 92 78 - 100 fL 08/29/2024 5:36 PM CDT [facility] MCH 30.8 26.5 - 33.0 pg 08/29/2024 5:36 PM CDT [facility] MCHC 33.3 31.5 - 36.5 g/dL 08/29/2024 5:36 PM CDT [facility] RDW 15.2(H) 10.0 - 15.0 % 08/29/2024 5:36 PM CDT [facility] Platelet Count 212 150 - 450 10e3/uL 08/29/2024 5:36 PM CDT [facility] % Neutrophils 62 % 08/29/2024 5:36 PM CDT [facility] % Lymphocytes 32 % 08/29/2024 5:36 PM CDT [facility] % Monocytes 4 % 08/29/2024 5:36 PM CDT [facility] % Eosinophils 1 % 08/29/2024 5:36 PM CDT [facility] % Basophils 1 % 08/29/2024 5:36 PM CDT [facility] % Immature Granulocytes 1 % 08/29/2024 5:36 PM CDT [facility] NRBCs per 100 WBC 0 <1 /100 025 5:36 PM CDT [facility] Absolute Neutrophils 4.2 1.6 - 8.3 10e3/uL 08/29/2024 5:36 PM CDT [facility] Absolute Lymphocytes 2.1 0.8 - 5.3 10e3/uL 08/29/2024 5:36 PM CDT [facility] Absolute Monocytes 0.2 0.0 - 1.3 10e3/uL 08/29/2024 5:36 PM CDT [facility] Absolute Eosinophils 0.1 0.0 - 0.7 10e3/uL 08/29/2024 5:36 PM CDT [facility] Absolute Basophils 0.0 0.0 - 0.2 10e3/uL 08/29/2024 5:36 PM CDT [facility] Absolute Immature Granulocytes 0.0 <=0.4 10e3/uL 08/29/2024 5:36 PM CDT [facility] Absolute NRBCs 0.0 10e3/uL 08/29/2024 5:36 PM CDT [facility] Blood STRUCTURE OF RIGHT UPPER LIMB / Unknown Venipuncture / Unknown 08/29/2024 5:33 PM CDT 08/29/2024 5:33 PM CDT us Martine Rios MD LAB - BLOOD ORDERABLES Final Result [facility] [address] [facility] Lab (1st floor, no room number) [place] [address], [facility] * Tacrolimus by Tandem Mass Spectrometry (08/29/2024 5:33 PM CDT) [facility] Tacrolimus by Tandem Mass Spectrometry 5.6 5.0 - 15.0 ug/L 08/29/2024 10:34 PM CDT [facility] Comment: Tacrolimus [...] post transplant: 5-8 Tacrolimus Last Dose Date 08/29/2024 08/29/2024 10:34 PM CDT [facility] Tacrolimus Last Dose Time 6:30 AM 08/29/2024 10:34 PM CDT [facility] Blood STRUCTURE OF RIGHT UPPER LIMB / Unknown Venipuncture / Unknown 08/29/2024 5:33 PM CDT 08/29/2024 5:33 PM CDT Narrative [facility] - 08/29/2024 10:34 PM CDT This test was developed and its performance characteristics determined by the [facility], Special Chemistry Laboratory. It has not been cleared or approved by the FDA. The laboratory is regulated under CLIA as qualified to perform high-complexity testing. This test is used for clinical purposes. It should not be regarded as investigational or for research. Martine Rios MD LAB - BLOOD ORDERABLES Final Result [facility] [address] [facility], Room [address] [place] [address] * Basic metabolic panel (08/29/2024 5:33 PM CDT) Sodium 137 135 - 145 mmol/L 08/29/2024 5:51 PM CDT LABOR[facility] Potassium 4.3 3.4 - 5.3 mmol/L 08/29/2024 5:51 PM CDT [facility] Chloride 103 98 - 107 mmol/L 08/29/2024 5:51 PM CDT [facility] Carbon Dioxide (CO2) 22 22 - 29 mmol/L 08/29/2024 5:51 PM CDT [facility] Anion Gap 12 7 - 15 mmol/L 08/29/2024 5:51 PM CDT LAB[facility]ORY Urea Nitrogen 12.3 8.0 - 23.0 mg/dL 08/29/2024 5:51 PM CDT [facility] Creatinine 0.80 0.51 - 0.95 mg/dL 08/29/2024 5:51 PM CDT [facility] GFR Estimate 84 >60 mL/min/1.7 3m2 08/29/2024 5:51 PM CDT [facility] Comment:eGFR calculated 2020 CKD-EPI equation. Calcium 9.4 8.8 - 10.4 mg/dL 08/29/2024 5:51 PM CDT LABOR[facility]ORY Glucose 97 70 - 99 mg/dL 08/29/2024 5:51 PM CDT [facility] Blood STRUCTURE OF RIGHT UPPER LIMB / Unknown Venipuncture / Unknown 08/29/2024 5:33 PM CDT 08/29/2024 5:33 PM CDT Martine Rios MD LAB - BLOOD ORDERABLES Final Result [facility] Acute [facility] Lab [address] Lab (1st floor, no room number) [place] [address], [facility] documented in this encounter Visit Diagnoses Diagnosis Limbal stem cell deficiency, unspecified laterality Immunosuppressed status Unspecified disorder of immune mechanism nursing home use of drug Encounter for long-term (current) use of other medications Other specified postprocedural states documented in this encounter Care Teams Cafe Helper Relationship Specialty Start Date End Date Martina Strickland PA-C PCP - General Physician Mosaic Tiler 07/19/19 Ailin Zavala MD Internal Medicine 07/28/11 Amadeo King MD [address] [place] [phone] Ophthalmology 12/22/19 Joseph Trivedi MD [facility] [address] [facility] [address] [place], [place] [phone] Rheumatology 05/21/20 Rene Grant MD [address] [place] [phone] Assigned Surgical Provider 09/12/22 Manju Perkins, JENNIFER Registered Nurse 05/24/24 Martine Rios MD [address] [place] [phone] Assigned Nephrology Provider 07/02/24 documented as of this encounter
--- OUTSIDE RECORDS SUMMARY | 2024-08-30 10:00 | XMS_ITS | Encounter Summary ---
Author Organization [facility] Address [address] [place] [address] Care Team Providers Care Make Up Editor Name Role Phone Ailin Zavala MD Unavailable Martina Strickland PA-C Primary Care Provider Amadeo King MD Unavailable [phone] Joseph Trivedi MD Unavailable [phone] Rene Grant MD Unavailable [phone] Manju Perkins RN Unavailable Unavaila Martine Sr MD Unavailable [phone] Reason for Visit * Reason Comments Ocular Hypertension Follow Up Encounter Details Date Type Department Care Team (Late st Contact Info) Description 08/30/2024 10:00 AM CDT Office Visit [facility] [address] [facility] 9th [address] Clin [address] [place] [phone] Amadeo King MD [address] [facility] [address] [place] [address] 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 Marcus. 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 Deshpande. Interval hx 08/30/2024: Tapered of prednisone, patient notices a floater OD - chronic. Patient states no headaches recently, has not been taking diamox. Chief Complaint(s) and History of Present Illness(es) Ocular Hypertension Follow Up In right eye. Associated symptoms include tearing and floaters (right). Negative for dryness and eye pain. Treatment compliance is always. Pain was noted as 0/10. Comments Paula is here to follow up on ocular hypertension of right eye. She says right eye has been tearingfor the past week, as well as new (string) floater in right eye that comes and goes. She has been doing all medication and gtts as directed at last visit. 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 Trivedi ([facility] DM s DR -- was following at [facility] with Dr. 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/18) -- improved A/Cdepth and IOP s/p KLAL/PKP/lens explantation/scleral fixated lens right eye 04/18/2019 S/p conjunctival chalasis right eye 06/14/2019 s/p KLAL / PKP / AMT OD 07/04/24 Current Meds: Restasis BID right eye Ofloxacin BID OD Pred TID right eye Latanoprost at bedtime right eye PF Refresh ou q1 h ou or more PO Cellcept 180mg 8 tablets per daily Tacrolimus capsules 2 mg daily Valcyte 450 mg bid Bactrim mg MWF 1 tab A/P: # s/p multiple PKP OD # s/p KLAL / PKP OD 07/04/24 # s/p conj chalasis excision nasally right eye 06/14/2019 # s/p KLAL/PKP /IOL exchange OD 04/18/2019 - Recurrent graft failure with progressive LSCD, likely 2/2 multiple surgeries and glaucoma drops - Severe astigmatism related to tight sutures; gradually improving with serial suture removal. - placed Kontur 9.0/18.0 05/13/2020 due to injection of KLAL graft - RGP achieved 20/30 vision prior 07/04/24: PKP + KLAL + AMT + Temp Tarso for persistent epi defect due to graft failure / LSCD 07/05/24: POD1, graft and AMT in place under temp tarso; patient complains of discomfort of arm buteye feels ok 07/12/[address], BCL more temporal. Patient is comfortable 07/17/24: POW2 s/p PKP + KLAL + AMT + Temp Tarso for persistent epi defect due to graft failure / LSCD 08/02/24: POM1 stable appearance. Currently taking prednisone 30 mg and weaning. #. Dry eyes OU #. Mixed mechanism glaucoma OD - Previously seen by Dr. Padron #. 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 DM s Retinopathy - continue to follow with Dr. Deshpande #. Pseudophakia, right eye - S/p Yag Cap 05/2020 PLAN: - Tapered off prednisone - okay to stop bactrim at POM#3 - continue Kontour lens to maintain residual amniotic membrane OD - Ofloxacin BID OD - Latanoprost QHS OD - Prednisolone acetate 1% drops QID OD - STOP Diamox - restasis BID OD - continue PF AT Q1H OD - warm compresses Attending Physician Attestation: Complete documentation of historical [...] encounter Nursing Notes * Tay Crawford - 08/30/2024 10:00 AM CDT Chief Complaints and History of Present Illnesses Patient presents with Ocular Hypertension Follow Up Chief Complaint(s) and History of Present Illness(es) Ocular Hypertension Follow Up Laterality: right eye Associated symptoms: tearing and floaters (right). Negative for dryness and eye pain Compliance with Treatment: always Pain scale: 0/10 Comments Paula is here to follow up on ocular hypertension of right eye. She says right eye has been tearingfor the past week, as well as new (string) floater in right eye that comes and goes. She has been doing all medication and gtts as directed at last visit. Tay Crawford COT 10:22 AM August 30, 2024 documented in this encounter Plan of Treatment Upcoming Encounters Date Type Department Care Team (Late st Contact Info) Description 09/29/2024 4:05 PM CDT Office Visit [facility] [address] [place] [phone] Martine Rios MD [address] [place], [place] [phone] 09/29/2024 5:30 PM CDT Ancillary Procedure [facility] 909 [facility] 1st [place] [phone] Martine Rios MD [address] [place], [place] [phone] 10/30/2024 3:00 PM CDT Office Visit [facility] - [facility] [address] [facility] 9th [address] [facility] [address] [place] [phone] Amadeo King MD [address] [facility] [address] [place], [place] [address] 12/05/2024 3:00 PM CDT Office Visit [facility] - [facility] [address] [facility] 9th [address] [facility] [address] [place] [phone] Emma Deshpande MD [address] [facility] [address] [place], [place] [address] documented as of this encounter Visit Diagnoses Diagnosis 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- Primary Post corneal transplant Cornea replaced by transplant documented in this encounter Care Teams Make Up Editor Relationship Specialty Start Date End Date Martina Strickland PA-C PCP - General Physician Power Machine Operator 07/19/19 Ailin Zavala MD Internal Medicine 07/28/11 Amadeo King MD [address] [address] Ophthalmology 12/22/19 Joseph Trivedi MD [facility] [address] [place] [address] Rheumatology 05/21/20 Rene Grant MD [address] [place] [address] Assigned Surgical Provider 09/12/22 Manju Perkins RN Registered Nurse 05/24/24 Martine Rios MD [address] [place] [phone] Assigned Nephrology Provider 07/02/24 documented as of this encounter
--- OUTSIDE RECORDS SUMMARY | 2024-09-05 12:20 | XMS_ITS | Encounter Summary ---
Author Organization [place] Address [address] [place] [address]. [place] [address] Care Team Providers Care Rerecording Mixer Name Role Phone Ailin Zavala MD Unavailable [phone] Martina Strickland PA-C Primary Care Provider Amadeo King MD Unavailable [phone] Joseph Trivedi MD Unavailable [phone] Rene Grant MD Unavailable [phone] Manju Perkins RN Unavailable Unavaila Martine Sr MD Unavailable [phone] Encounter Details Date Type Department Care Team (Late st Contact Info) Description 09/05/2024 12:20 PM CDT Lab [facility] [address] [place] [phone] Limbal stem cell deficiency; Immunosuppressed status; Limbal stem cell deficiency, unspecified laterality; halfway use of drug; Other specified postprocedural states [...] AM CDT 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 Transplant Clinic [address] [place] [phone] Martine Rios MD [address] [place], [place] [phone] 09/29/2024 5:30 PM CDT Ancillary Procedure [facility] 9[address] [facility] 1st [place] [phone] Martine Rios MD [address] [place], [place] [phone] 10/30/2024 3:00 PM CDT Office Visit [facility] Eye Clinic - [facility] [address] [place] [phone] Amadeo King MD 420 [facility] [address] [place], [place] [phone] 12/05/2024 3:00 PM CDT Office Visit [facility] Eye [facility] - [facility] [address] [facility] [address] [place] [phone] Emma Deshpande MD 516 [facility] [address] [place] [address] documented as of this encounter Procedures Procedure Name Priority Date/Time Associated Diagnosis Comments CBC WITH PLATELETS AND DIFFERENTIAL Routine 09/05/2024 5:37 PM CDT 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, unspecified laterality halfway use of drug Other specified postprocedural states CBC WITH PLATELETS & DIFFERENTIAL Routine 09/05/2024 5:37 PM CDT 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, unspecified laterality 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 Other specified postprocedural states TACROLIMUS BY TANDEM MASS SPECTROMETRY Routine 09/05/2024 5:37 PM CDT 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, unspecified laterality 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 Other specified postprocedural states BASIC METABOLIC PANEL Routine 09/05/2024 5:37 PM CDT 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, unspecified laterality 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 Other specified postprocedural states documented in this encounter Results * Tacrolimus by Tandem Mass Spectrometry (09/05/2024 5:37 PM CDT) Tacrolimus by Tandem Mass Spectrometry 5.3 5.0 - 15.0 ug/L 09/06/2024 9:21 AM CDT [facility] Comment: Tacrolimus Reference [...] post transplant: 5-8 Tacrolimus Last Dose Date 09/05/2024 09/06/2024 9:21 AM CDT [facility] Tacrolimus Last Dose Time 6:30 AM 09/06/2024 9:21 AM CDT [facility] Blood STRUCTURE OF LEFT UPPER LIMB / Unknown Venipuncture / Unknown 09/05/2024 5:37 PM CDT 09/05/2024 5:37 PM CDT Narrative [facility] - 09/06/2024 9:21 AM CDT This test was developed and its performance characteristics determined by the [facility], Special [facility] Laboratory. It has not been cleared or approved by the FDA. The laboratory is regulated under CLIA as qualified to perform high-complexity testing. This test is used for clinical purposes. It should not be regarded as investigational or for research. Martine Rios MD LAB - BLOOD ORDERABLES Final Result [facility] 500 [facility], Room 3[address] [place] [address], [facility] * (ABNORMAL) CBC with platelets and differential (09/05/2024 5:37 PM CDT) WBC Count 5.5 4.0 - 11.0 10e3/uL 09/05/2024 5:42 PM CDT [facility] RBC Count 3.64(L) 3.80 - 5.20 10e6/uL 09/05/2024 5:42 PM CDT [facility] Hemoglobin 11.3(L) 11.7 - 15.7 g/dL 09/05/2024 5:42 PM CDT [facility] Hematocrit 33.6(L) 35.0 - 47.0 % 09/05/2024 5:42 PM CDT [facility] MCV 92 78 - 100 fL 09/05/2024 5:42 PM CDT [facility] MCH 31.0 26.5 - 33.0 pg 09/05/2024 5:42 PM CDT [facility] MCHC 33.6 31.5 - 36.5 g/dL 09/05/2024 5:42 PM CDT [facility] RDW 15.1(H) 10.0 - 15.0 % 09/05/2024 5:42 PM CDT [facility] Platelet Count 246 150 - 450 10e3/uL 09/05/2024 5:42 PM CDT [facility] % Neutrophils 59 % 09/05/2024 5:42 PM CDT [facility] % Lymphocytes 34 % 09/05/2024 5:42 PM CDT [facility] % Monocytes 4 % 09/05/2024 5:42 PM CDT [facility] % Eosinophils 2 % 09/05/2024 5:42 PM CDT [facility] % Basophils 1 % 09/05/2024 5:42 PM CDT [facility] % Immature Granulocytes 0 % 09/05/2024 5:42 PM CDT [facility] NRBCs per 100 WBC 0 <1 /100 025 5:42 PM CDT [facility] Absolute Neutrophils 3.3 1.6 - 8.3 10e3/uL 09/05/2024 5:42 PM CDT [facility] Absolute Lymphocytes 1.9 0.8 - 5.3 10e3/uL 09/05/2024 5:42 PM CDT [facility] Absolute Monocytes 0.2 0.0 - 1.3 10e3/uL 09/05/2024 5:42 PM CDT [facility] Absolute Eosinophils 0.1 0.0 - 0.7 10e3/uL 09/05/2024 5:42 PM CDT [facility] Absolute Basophils 0.1 0.0 - 0.2 10e3/uL 09/05/2024 5:42 PM CDT [facility] Absolute Immature Granulocytes 0.0 <=0.4 10e3/uL 09/05/2024 5:42 PM CDT [facility] Absolute NRBCs 0.0 10e3/uL 09/05/2024 5:42 PM CDT [facility] Blood STRUCTURE OF LEFT UPPER LIMB / Unknown Venipuncture / Unknown 09/05/2024 5:37 PM CDT 09/05/2024 5:37 PM CDT Martine Rios MD LAB - BLOOD ORDERABLES Final Result LABORATORY [facility] [address] Lab (1st floor, no room number) [place] [address] * (ABNORMAL) Basic metabolic panel (09/05/2024 5:37 PM CDT) Sodium 134(L) 135 - 145 mmol/L 09/05/2024 5:59 PM CDT LABORATORY Potassium 4.6 3.4 - 5.3 mmol/L 09/05/2024 5:59 PM CDT LABORATORY Chloride 99 98 - 107 mmol/L 09/05/2024 5:59 PM CDT LABORATORY Carbon Dioxide (CO2) 24 22 - 29 mmol/L 09/05/2024 5:59 PM CDT LABORATORY Anion Gap 11 7 - 15 mmol/L 09/05/2024 5:59 PM CDT LABORATORY Urea Nitrogen 14.3 8.0 - 23.0 mg/dL 09/05/2024 5:59 PM CDT LABORATORY Creatinine 0.65 0.51 - 0.95 mg/dL 09/05/2024 5:59 PM CDT LABORATORY GFR Estimate >90 >60 mL/min/1.7 3m2 09/05/2024 5:59 PM CDT LABORATORY Comment:eGFR calculated usin 2020 CKD-EPI equation. Calcium 9.7 8.8 - 10.4 mg/dL 09/05/2024 5:59 PM CDT LABORATORY Glucose 98 70 - 99 mg/dL 09/05/2024 5:59 PM CDT LABORATORY Blood STRUCTURE OF LEFT UPPER LIMB / Unknown Venipuncture / Unknown 09/05/2024 5:37 PM CDT 09/05/2024 5:37 PM CDT Martine Rios MD LAB - BLOOD ORDERABLES Final Result [facility] Acute Care Lab [address] [facility] Lab (1st floor, no room number) [place] [address], [facility] documented in this encounter Visit Diagnoses Diagnosis Limbal stem cell deficiency, unspecified laterality Immunosuppressed status Unspecified disorder of immune mechanism 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 Encounter for long-term (current) use of other medications Other specified postprocedural states documented in this encounter Care Teams Rerecording Mixer Relationship Specialty Start Date End Date Martina Strickland PA-C PCP - General Physician Generation Engineer 07/19/19 Ailin Zavala MD Internal Medicine 07/28/11 Amadeo King MD [address] [place] [phone] Ophthalmology 12/22/19 Joseph Trivedi MD [facility] [address] [place], [place] [phone] Rheumatology 05/21/20 Rene Grant MD 6 [place], [place] [address] Assigned Surgical Provider 09/12/22 Manju Perkins, JENNIFER Registered Nurse 05/24/24 Martine Rios MD [address] [place] [phone] Assigned Nephrology Provider 07/02/24 documented as of this encounter
--- OUTSIDE RECORDS SUMMARY | 2024-09-13 16:40 | XMS_ITS | Encounter Summary ---
Author Organization [place] Address [address] [place] [address]. [place] [address] Care Team Providers Care Tool Checker Name Role Phone Ailin Zavala MD Unavailable [phone] Martina Strickland PA-C Primary Care Provider Amadeo King MD Unavailable [phone] Joseph Trivedi MD Unavailable [phone] Rene Grant MD Unavailable [phone] Manju Perkins RN Unavailable Unavaila Martine Sr MD Unavailable [phone] Encounter Details Date Type Department Care Team (Late st Contact Info) Description 09/13/2024 4:40 PM CDT Lab [facility] [address] [place] [phone] Limbal stem cell deficiency; Immunosuppressed status; Limbal stem cell deficiency, unspecified laterality; 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; Other specified postprocedural states [...] AM CDT 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 Gender Identity Female 2019 10:10 AM CDT Sexual Orientation Straight 2019 10 :10 AM CDT documented as of this encounter Plan of Treatment Upcoming Encounters Date Type Department Care Team (Late st Contact Info) Description 09/29/2024 4:05 PM CDT Office Visit [facility] Transplant Clinic [address] [place] [phone] Martine Rios MD [address] [place], [place] [phone] 09/29/2024 5:30 PM CDT Ancillary Procedure [facility] 9[address] [facility] 1st [place] [phone] Martine Rios MD [address] [place], [place] [address] 10/30/2024 3:00 PM CDT Office Visit [facility] Eye Clinic - [facility] [address] [place] [phone] Amadeo King MD 420 [facility] [address] [place], [place] [phone] 12/05/2024 3:00 PM CDT Office Visit [facility] Eye [facility] - [facility] [address] [facility] [address] [place] [phone] Emma Deshpande MD 516 [facility] [address] [place] [address] documented as of this encounter Procedures Procedure Name Priority Date/Time Associated Diagnosis Comments TACROLIMUS BY TANDEM MASS SPECTROMETRY Routine 09/13/2024 5:31 PM CDT 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, unspecified laterality 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 Other specified postprocedural states CBC WITH PLATELETS AND DIFFERENTIAL Routine 09/13/2024 5:30 PM CDT 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, unspecified laterality [facility] use of drug Other specified postprocedural states CBC WITH PLATELETS & DIFFERENTIAL Routine 09/13/2024 5:30 PM CDT 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, unspecified laterality 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 Other specified postprocedural states BASIC METABOLIC PANEL Routine 09/13/2024 5:30 PM CDT 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, unspecified laterality [facility] use of drug Other specified postprocedural states documented in this encounter Results * Tacrolimus by Tandem Mass Spectrometry (09/13/2024 5:31 PM CDT) Tacrolimus by Tandem Mass Spectrometry 7.9 5.0 - 15.0 ug/L 09/14/2024 11:13 AM CDT [facility] Comment: Tacrolimus [...] post transplant: 5-8 Tacrolimus Last Dose Date 09/13/2024 09/14/2024 11:13 AM CDT [facility] Tacrolimus Last Dose Time 6:30 AM 09/14/2024 11:13 AM CDT [facility] Blood STRUCTURE OF RIGHT UPPER LIMB / Unknown Venipuncture / Unknown 09/13/2024 5:31 PM CDT 09/13/2024 5:31 PM CDT Narrative [facility] - 09/14/2024 11:13 AM CDT This test was developed and its performance characteristics determined by the [facility], Special [facility] Laboratory. It has not been cleared or approved by the FDA. The laboratory is regulated under CLIA as qualified to perform high-complexity testing. This test is used for clinical purposes. It should not be regarded as investigational or for research. Martine Rios MD LAB - BLOOD ORDERABLES Final Result [facility] 500 [facility], Room 3[address] [place] [address], [facility] * (ABNORMAL) CBC with platelets and differential (09/13/2024 5:30 PM CDT) WBC Count 5.5 4.0 - 11.0 10e3/uL 09/13/2024 5:34 PM CDT [facility] RBC Count 3.72(L) 3.80 - 5.20 10e6/uL 09/13/2024 5:34 PM CDT [facility] Hemoglobin 11.6(L) 11.7 - 15.7 g/dL 09/13/2024 5:34 PM CDT [facility] Hematocrit 34.4(L) 35.0 - 47.0 % 09/13/2024 5:34 PM CDT [facility] MCV 93 78 - 100 fL 09/13/2024 5:34 PM CDT [facility] MCH 31.2 26.5 - 33.0 pg 09/13/2024 5:34 PM CDT [facility] MCHC 33.7 31.5 - 36.5 g/dL 09/13/2024 5:34 PM CDT [facility] RDW 15.1(H) 10.0 - 15.0 % 09/13/2024 5:34 PM CDT [facility] Platelet Count 252 150 - 450 10e3/uL 09/13/2024 5:34 PM CDT [facility] % Neutrophils 58 % 09/13/2024 5:34 PM CDT [facility] % Lymphocytes 34 % 09/13/2024 5:34 PM CDT [facility] % Monocytes 6 % 09/13/2024 5:34 PM CDT [facility] % Eosinophils 1 % 09/13/2024 5:34 PM CDT [facility] % Basophils 1 % 09/13/2024 5:34 PM CDT [facility] % Immature Granulocytes 0 % 09/13/2024 5:34 PM CDT [facility] NRBCs per 100 WBC 0 <1 /100 025 5:34 PM CDT [facility] Absolute Neutrophils 3.2 1.6 - 8.3 10e3/uL 09/13/2024 5:34 PM CDT [facility] Absolute Lymphocytes 1.9 0.8 - 5.3 10e3/uL 09/13/2024 5:34 PM CDT [facility] Absolute Monocytes 0.3 0.0 - 1.3 10e3/uL 09/13/2024 5:34 PM CDT [facility] Absolute Eosinophils 0.1 0.0 - 0.7 10e3/uL 09/13/2024 5:34 PM CDT [facility] Absolute Basophils 0.1 0.0 - 0.2 10e3/uL 09/13/2024 5:34 PM CDT [facility] Absolute Immature Granulocytes 0.0 <=0.4 10e3/uL 09/13/2024 5:34 PM CDT [facility] Absolute NRBCs 0.0 10e3/uL 09/13/2024 5:34 PM CDT [facility] Blood STRUCTURE OF RIGHT UPPER LIMB / Unknown Venipuncture / Unknown 09/13/2024 5:30 PM CDT 09/13/2024 5:30 PM CDT Martine Rios MD LAB - BLOOD ORDERABLES Final Result LABORATORY [facility] Acute Care Lab [address] Lab (1st floor, no room number) [place] [address] * Basic metabolic panel (09/13/2024 5:30 PM CDT) Sodium 138 135 - 145 mmol/L 09/13/2024 5:53 PM CDT LABORATORY Potassium 4.6 3.4 - 5.3 mmol/L 09/13/2024 5:53 PM CDT LABORATORY Chloride 102 98 - 107 mmol/L 09/13/2024 5:53 PM CDT LABORATORY Carbon Dioxide (CO2) 24 22 - 29 mmol/L 09/13/2024 5:53 PM CDT LABORATORY Anion Gap 12 7 - 15 mmol/L 09/13/2024 5:53 PM CDT LABORATORY Urea Nitrogen 13.8 8.0 - 23.0 mg/dL 09/13/2024 5:53 PM CDT LABORATORY Creatinine 0.75 0.51 - 0.95 mg/dL 09/13/2024 5:53 PM CDT LABORATORY GFR Estimate >90 >60 mL/min/1.7 3m2 09/13/2024 5:53 PM CDT LABORATORY Comment:eGFR calculated us2020 CKD-EPI equation. Calcium 9.5 8.8 - 10.4 mg/dL 09/13/2024 5:53 PM CDT LABORATORY Glucose 93 70 - 99 mg/dL 09/13/2024 5:53 PM CDT LABORATORY Blood STRUCTURE OF RIGHT UPPER LIMB / Unknown Venipuncture / Unknown 09/13/2024 5:30 PM CDT 09/13/2024 5:31 PM CDT Martine Rios MD LAB - BLOOD ORDERABLES Final Result LABORATORY [facility] Acute Care Lab [address] Lab (1st floor, no room number) [place] [address], [facility] documented in this encounter Visit Diagnoses Diagnosis Limbal stem cell deficiency, unspecified laterality Immunosuppressed status Unspecified disorder of immune mechanism [facility] use of drug Encounter for long-term (current) use of other medications Other specified postprocedural states documented in this encounter Care Teams Tool Checker Relationship Specialty Start Date End Date Martina Strickland PA-C PCP - General Physician Clinical Trials Systems Administrator 07/19/19 Ailin Zavala MD Internal Medicine 07/28/11 Amadeo King MD [address] [place] [id number] Ophthalmology 12/22/19 Joseph Trivedi MD [facility] [address] [address] Rheumatology 05/21/20 Rene Grant MD [address] [place] [id number] Assigned Surgical Provider 09/12/22 Manju Perkins, JENNIFER Registered Nurse 05/24/24 Martine Rios MD [address] [place] [phone] Assigned Nephrology Provider 07/02/24 documented as of this encounter
--- OUTSIDE RECORDS SUMMARY | 2024-09-20 17:10 | XMS_ITS | Encounter Summary ---
Author Organization [place] Address [address] [place] [address]. [place] [address] Care Team Providers Care Remarketing Rep Name Role Phone Ailin Zavala MD Unavailable Martina Strickland PA-C Primary Care Provider Amadeo King MD Unavailable [phone] Joseph Trivedi MD Unavailable [phone] Rene Grant MD Unavailable [phone] Manju Perkins RN Unavailable Unavaila Martine Sr MD Unavailable [phone] Encounter Details Date Type Department Care Team (Late st Contact Info) Description 09/20/2024 5:10 PM CDT Lab [facility] [address] [place] [phone] Limbal stem cell deficiency; Immunosuppressed status; Limbal stem cell deficiency, unspecified laterality; 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; Other specified postprocedural states [...] AM CDT 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 Gender Identity Female 2019 10:10 AM CDT Sexual Orientation Straight 2019 10 :10 AM CDT documented as of this encounter Plan of Treatment Upcoming Encounters Date Type Department Care Team (Late st Contact Info) Description 09/29/2024 4:05 PM CDT Office Visit [facility] Transplant Clinic 9[address] [place] [phone] Martine Rios MD [address] [place], [place] [phone] 09/29/2024 5:30 PM CDT Ancillary Procedure [facility] 909 [facility] 1st [place] [phone] Martine Rios MD [address] [place], [place] [phone] 10/30/2024 3:00 PM CDT Office Visit [facility] Eye [facility] - [facility] 516 [facility] [address] Clin [address] [place] [phone] Amadeo King MD 420 [facility] [address] [place], [place] [phone] 12/05/2024 3:00 PM CDT Office Visit [facility] Eye [facility] - [facility] 516 [facility]th [facility] 9A [place] [phone] Emma Deshpande MD [address] [address] documented as of this encounter Procedures Procedure Name Priority Date/Time Associated Diagnosis Comments CBC WITH PLATELETS AND DIFFERENTIAL Routine 09/20/2024 5:32 PM CDT 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, unspecified laterality 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 Other specified postprocedural states CBC WITH PLATELETS & DIFFERENTIAL Routine 09/20/2024 5:32 PM CDT 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, unspecified laterality detention use of drug Other specified postprocedural states TACROLIMUS BY TANDEM MASS SPECTROMETRY Routine 09/20/2024 5:32 PM CDT 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, unspecified laterality 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 Other specified postprocedural states BASIC METABOLIC PANEL Routine 09/20/2024 5:32 PM CDT 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, unspecified laterality detention use of drug Other specified postprocedural states documented in this encounter Results * CBC with platelets and differential (09/20/2024 5:32 PM CDT) WBC Count 5.5 4.0 - 11.0 10e3/uL 09/20/2024 5:35 PM CDT [facility] RBC Count 3.82 3.80 - 5.20 10e6/uL 09/20/2024 5:35 PM CDT [facility] Hemoglobin 11.9 11.7 - 15.7 g/dL 09/20/2024 5:35 PM CDT [facility] Hematocrit 35.3 35.0 - 47.0 % 09/20/2024 5:35 PM CDT [facility] MCV 92 78 - 100 fL 09/20/2024 5:35 PM CDT [facility] MCH 31.2 26.5 - 33.0 pg 09/20/2024 5:35 PM CDT [facility] MCHC 33.7 31.5 - 36.5 g/dL 09/20/2024 5:35 PM CDT [facility] RDW 14.5 10.0 - 15.0 % 09/20/2024 5:35 PM CDT [facility] Platelet Count 247 150 - 450 10e3/uL 09/20/2024 5:35 PM CDT [facility] % Neutrophils 59 % 09/20/2024 5:35 PM CDT [facility] % Lymphocytes 34 % 09/20/2024 5:35 PM CDT [facility] % Monocytes 5 % 09/20/2024 5:35 PM CDT [facility] % Eosinophils 1 % 09/20/2024 5:35 PM CDT [facility] % Basophils 1 % 09/20/2024 5:35 PM CDT [facility] % Immature Granulocytes 0 % 09/20/2024 5:35 PM CDT [facility] NRBCs per 100 WBC 0 <1 /100 025 5:35 PM CDT [facility] Absolute Neutrophils 3.3 1.6 - 8.3 10e3/uL 09/20/2024 5:35 PM CDT [facility] Absolute Lymphocytes 1.9 0.8 - 5.3 10e3/uL 09/20/2024 5:35 PM CDT [facility] Absolute Monocytes 0.3 0.0 - 1.3 10e3/uL 09/20/2024 5:35 PM CDT [facility] Absolute Eosinophils 0.1 0.0 - 0.7 10e3/uL 09/20/2024 5:35 PM CDT [facility] Absolute Basophils 0.1 0.0 - 0.2 10e3/uL 09/20/2024 5:35 PM CDT [facility] Absolute Immature Granulocytes 0.0 <=0.4 10e3/uL 09/20/2024 5:35 PM CDT [facility] Absolute NRBCs 0.0 10e3/uL 09/20/2024 5:35 PM CDT [facility] Blood STRUCTURE OF RIGHT UPPER LIMB / Unknown Venipuncture / Unknown 09/20/2024 5:32 PM CDT 09/20/2024 5:32 PM CDT us Martine Rios MD LAB - BLOOD ORDERABLES Final Result [facility] Acute [facility] Lab [address] Lab (1st floor, no room number) [place] [address] * (ABNORMAL) Basic metabolic panel (09/20/2024 5:32 PM CDT) Sodium 139 135 - 145 mmol/L 09/20/2024 5:56 PM CDT LABORATORY Potassium 4.2 3.4 - 5.3 mmol/L 09/20/2024 5:56 PM CDT LABORATORY Chloride 103 98 - 107 mmol/L 09/20/2024 5:56 PM CDT LABORATORY Carbon Dioxide (CO2) 23 22 - 29 mmol/L 09/20/2024 5:56 PM CDT LABORATORY Anion Gap 13 7 - 15 mmol/L 09/20/2024 5:56 PM CDT LABORATORY Urea Nitrogen 16.5 8.0 - 23.0 mg/dL 09/20/2024 5:56 PM CDT LABORATORY Creatinine 0.81 0.51 - 0.95 mg/dL 09/20/2024 5:56 PM CDT LABORATORY GFR Estimate 83 >60 mL/min/1.7 3m2 09/20/2024 5:56 PM CDT LABORATORY Comment:eGFR calculated usin 2020 CKD-EPI equation. Calcium 9.6 8.8 - 10.4 mg/dL 09/20/2024 5:56 PM CDT LABORATORY Glucose 102(H) 70 - 99 mg/dL 09/20/2024 5:56 PM CDT LABORATORY Blood STRUCTURE OF RIGHT UPPER LIMB / Unknown Venipuncture / Unknown 09/20/2024 5:32 PM CDT 09/20/2024 5:32 PM CDT us Martine Rios MD LAB - BLOOD ORDERABLES Final Result LABORATORY [facility] Lab [address] Lab (1st floor, no room number) [place] [address], [facility] * Tacrolimus by Tandem Mass Spectrometry (09/20/2024 5:32 PM CDT) Tacrolimus by Tandem Mass Spectrometry 8.8 5.0 - 15.0 ug/L 09/20/2024 11:04 PM CDT [facility] Comment: Tacrolimus [...] post transplant: 5-8 Tacrolimus Last Dose Date 09/20/2024 09/20/2024 11:04 PM CDT [facility] Tacrolimus Last Dose Time 6:30 AM 09/20/2024 11:04 PM CDT [facility] Blood STRUCTURE OF RIGHT UPPER LIMB / Unknown Venipuncture / Unknown 09/20/2024 5:32 PM CDT 09/20/2024 5:32 PM CDT Narrative [facility] - 09/20/2024 11:04 PM CDT This test was developed and its performance characteristics determined by the [facility], [facility]. It has not been cleared or approved by the FDA. The laboratory is regulated under CLIA as qualified to perform high-complexity testing. This test is used for clinical purposes. It should not be regarded as investigational or for research. Martine Rios MD LAB - BLOOD ORDERABLES Final Result [facility] 500 [facility] [address], Room [address] [place] [address] documented in this encounter Visit Diagnoses Diagnosis Limbal stem cell deficiency, unspecified laterality Immunosuppressed status Unspecified disorder of immune mechanism detention use of drug Encounter for long-term (current) use of other medications Other specified postprocedural states documented in this encounter Care Teams Remarketing Rep Relationship Specialty Start Date End Date Martina Strickland PA-C PCP - General Physician Body And Frame Technician 07/19/19 Ailin Zavala MD Internal Medicine 07/28/11 Amadeo King MD [address] [facility] [address] [place], [place] [phone] Ophthalmology 12/22/19 Joseph Trivedi MD [facility] [address] [address] Rheumatology 05/21/20 Rene Grant MD [address] [place], [place] [phone] Assigned Surgical Provider 09/12/22 Manju Perkins, JENNIFER Registered Nurse 05/24/24 Martine Rios MD [address] [place] [address] Assigned Nephrology Provider 07/02/24 documented as of this encounter
--- OUTSIDE RECORDS SUMMARY | 2024-09-25 15:00 | XMS_ITS | Encounter Summary ---
Author Organization [place] Address [address] [place] [address]. [place] [address] Care Team Providers Care Loan Closer Name Role Phone Ailin Zavala MD Unavailable [phone] Martina Strickland PA-C Primary Care Provider Amadeo King MD Unavailable [phone] Joseph Trivedi MD Unavailable [phone] Rene Grant MD Unavailable [phone] Manju Perkins RN Unavailable Unavaila [facility] Martine Rios MD Unavailable Reason for Visit * Reason Comments Post Op (Ophthalmology) Right Eye Encounter Details Date Type Department Care Team (Late st Contact Info) Description 09/25/2024 3:00 PM CDT Office Visit 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 Marcus. 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 Deshpande. Interval hx 09/25/2024 vision unchanged. Last night had FBS that resolved with drops. Chief Complaint(s) and History of Present Illness(es) Post Op (Ophthalmology) Right Eye In right eye. This started 8 weeks ago. Comments s/p KLAL / PKP / AMT OD 07/04/24-Pt. States that there has been no change in VA BE. Did have some discomfort RE last night. Seemed like there was something in RE. Has resolved today. 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 Trivedi ([facility]) JAMAL s -- was following at [facility] with Dr. 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 09/25/24 POM3 stable appearance. removed kontour today, removed exposed suture tails #. Dry eyes OU #. Mixed mechanism glaucoma OD - Previously seen by Dr. Padron #. H/o aqueous misdirection OD -continue to follow with Dr. Deshpande #. DM s Retinopathy - continue to follow with Dr. Deshpande #. Pseudophakia, right eye - S/p Yag Cap 05/2020 PLAN: - Off prednisone - okay to stop bactrim at POM#3 - stop today - remove Kontour lens today to allow residual amniotic membrane to dissolve OD - Ofloxacin BID OD - Latanoprost QHS OD - Prednisolone acetate 1% drops QID OD - Continue off Diamox - restasis BID OD - continue PF AT Q1H OD - warm compresses - remove exposed suture tails x 5 OD Terrance Alexandra MD Resident Physician, PGY-3 Department of Ophthalmology Attending Physician Attestation: Complete documentation of historical [...] documented in this encounter Nursing Notes * Siri Russell - 09/25/2024 3:00 PM CDT Chief Complaints and History of Present Illnesses Patient presents with Post Op (Ophthalmology) Right Eye Chief Complaint(s) and History of Present Illness(es) Post Op (Ophthalmology) Right Eye Laterality: right eye Onset: 8 weeks ago Comments s/p KLAL / PKP / AMT OD 07/04/24-Pt. States that there has been no change in VA BE. Did have some discomfort RE last night. Seemed like there was something in RE. Has resolved today. Siri Russell COT 2:54 PM September 25, 2024 documented in this encounter Plan of Treatment Upcoming Encounters Date Type Department Care Team (Late st Contact Info) Description 09/29/2024 4:05 PM CDT Office Visit [facility] Transplant Clinic 909 [place] [phone] Martine Rios MD [address] [place], [place] [phone] 09/29/2024 5:30 PM CDT Ancillary Procedure [facility] 909 [facility] 1st [place] [phone] Martine Rios MD [address] [place], [place] [address] 10/30/2024 3:00 PM CDT Office Visit [facility] Eye Clinic - [place] [address] [facility] Emergency Department 9th [facility] 9A [place] [phone] Amadeo King MD 420 [facility] 493 [place], [place] [address] 12/05/2024 3:00 PM CDT Office Visit 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 documented in this encounter Care Teams Loan Closer Relationship Specialty Start Date End Date Martina Strickland PA-C PCP - General Physician Supportability Engineer 07/19/19 Ailin Zavala MD Internal Medicine 07/28/11 Amadeo King MD 420 [facility] 493 [place], [place] [phone] Ophthalmology 12/22/19 Joseph Trivedi MD [facility] [address] [place], [place] [address] Rheumatology 05/21/20 Rene Grant MD 516 [place], [place] [address] Assigned Surgical Provider 09/12/22 Manju Perkins, RN Registered Nurse 05/24/24 Martine Rios MD [address] [place] [phone] Assigned Nephrology Provider 07/02/24 documented as of this encounter
--- OUTSIDE RECORDS SUMMARY | 2024-09-27 15:20 | XMS_ITS | Encounter Summary ---
Author Organization [place] Address [address] [place] [address]. [place] [address] Care Team Providers Care Sap Bpc Developer Name Role Phone Ailin Zavala MD Unavailable Martina Strickland PA-C Primary Care Provider Amadeo King MD Unavailable [phone] Joseph Trivedi MD Unavailable [phone] Rene Grant MD Unavailable [phone] Manju Perkins RN Unavailable Unavaila Martine Sr MD Unavailable [phone] Encounter Details Date Type Department Care Team (Late st Contact Info) Description 09/27/2024 3:20 PM CDT Lab [facility] [address] [place] [phone] Limbal stem cell deficiency; Immunosuppressed status; Limbal [...] AM CDT 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 Gender Identity Female 2019 10:10 AM CDT Sexual Orientation Straight 2019 10 :10 AM CDT documented as of this encounter Plan of Treatment Upcoming Encounters Date Type Department Care Team (Late st Contact Info) Description 09/29/2024 4:05 PM CDT Office Visit [facility] Transplant Clinic 909 [place] [phone] Martine Rios MD 500 [place], [place] [phone] 09/29/2024 5:30 PM CDT Ancillary Procedure [facility] 909 [facility] 1st [place] [phone] Martine Rios MD 500 [place], [place] [address] 10/30/2024 3:00 PM CDT Office Visit [facility] Eye Clinic - [facility] 516 [facility] Emergency Department 9th Ca Clin 9A [place] [phone] Amadeo King MD 420 [facility] 493 [place], [place] [phone] 12/05/2024 3:00 PM CDT Office Visit [facility] Eye 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, unspecified laterality MCC use of drug Other specified postprocedural states 09/27/2024 5:23 PM CDT documented as of this encounter Procedures Procedure Name Priority Date/Time Associated Diagnosis Comments CBC WITH PLATELETS AND DIFFERENTIAL Routine 09/27/2024 5:23 PM CDT 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, unspecified laterality MCC use of drug Other specified postprocedural states CBC WITH PLATELETS & DIFFERENTIAL Routine 09/27/2024 5:23 PM CDT 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, unspecified laterality 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 Other specified postprocedural states BASIC METABOLIC PANEL Routine 09/27/2024 5:23 PM CDT 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, unspecified laterality MCC use of drug Other specified postprocedural states documented in this encounter Results * (ABNORMAL) CBC with platelets and differential (09/27/2024 5:23 PM CDT) WBC Count 5.7 4.0 - 11.0 10e3/uL 09/27/2024 5:27 PM CDT [facility] RBC Count 3.77(L) 3.80 - 5.20 10e6/uL 09/27/2024 5:27 PM CDT [facility] Hemoglobin 11.8 11.7 - 15.7 g/dL 09/27/2024 5:27 PM CDT [facility] Hematocrit 35.0 35.0 - 47.0 % 09/27/2024 5:27 PM CDT [facility] MCV 93 78 - 100 fL 09/27/2024 5:27 PM CDT [facility] MCH 31.3 26.5 - 33.0 pg 09/27/2024 5:27 PM CDT [facility] MCHC 33.7 31.5 - 36.5 g/dL 09/27/2024 5:27 PM CDT [facility] RDW 13.9 10.0 - 15.0 % 09/27/2024 5:27 PM CDT [facility] Platelet Count 214 150 - 450 10e3/uL 09/27/2024 5:27 PM CDT [facility] % Neutrophils 59 % 09/27/2024 5:27 PM CDT [facility] % Lymphocytes 33 % 09/27/2024 5:27 PM CDT [facility] % Monocytes 5 % 09/27/2024 5:27 PM CDT [facility] % Eosinophils 2 % 09/27/2024 5:27 PM CDT [facility] % Basophils 1 % 09/27/2024 5:27 PM CDT [facility] % Immature Granulocytes 0 % 09/27/2024 5:27 PM CDT [facility] NRBCs per 100 WBC 0 <1 /100 025 5:27 PM CDT [facility] Absolute Neutrophils 3.4 1.6 - 8.3 10e3/uL 09/27/2024 5:27 PM CDT [facility] Absolute Lymphocytes 1.9 0.8 - 5.3 10e3/uL 09/27/2024 5:27 PM CDT [facility] Absolute Monocytes 0.3 0.0 - 1.3 10e3/uL 09/27/2024 5:27 PM CDT [facility] Absolute Eosinophils 0.1 0.0 - 0.7 10e3/uL 09/27/2024 5:27 PM CDT [facility] Absolute Basophils 0.1 0.0 - 0.2 10e3/uL 09/27/2024 5:27 PM CDT [facility] Absolute Immature Granulocytes 0.0 <=0.4 10e3/uL 09/27/2024 5:27 PM CDT [facility] Absolute NRBCs 0.0 10e3/uL 09/27/2024 5:27 PM CDT [facility] Blood STRUCTURE OF LEFT UPPER LIMB / Unknown Venipuncture / Unknown 09/27/2024 5:23 PM CDT 09/27/2024 5:23 PM CDT us Martine Rios MD LAB - BLOOD ORDERABLES Final Result [facility] Acute Care Lab [address] Lab (1st floor, no room number) [place] [address], [facility] * (ABNORMAL) Basic metabolic panel (09/27/2024 5:23 PM CDT) Sodium 136 135 - 145 mmol/L 09/27/2024 5:51 PM CDT LABORATORY Potassium 4.3 3.4 - 5.3 mmol/L 09/27/2024 5:51 PM CDT LABORATORY Chloride 102 98 - 107 mmol/L 09/27/2024 5:51 PM CDT [facility] Carbon Dioxide (CO2) 24 22 - 29 mmol/L 09/27/2024 5:51 PM CDT LABORATORY Anion Gap 10 7 - 15 mmol/L 09/27/2024 5:51 PM CDT LABORATORY Urea Nitrogen 12.2 8.0 - 23.0 mg/dL 09/27/2024 5:51 PM CDT LABORATORY Creatinine 0.69 0.51 - 0.95 mg/dL 09/27/2024 5:51 PM CDT LABORATORY GFR Estimate >90 >60 mL/min/1.7 3m2 09/27/2024 5:51 PM CDT LABORATORY Comment:eGFR calculated us2020 CKD-EPI equation. Calcium 9.5 8.8 - 10.4 mg/dL 09/27/2024 5:51 PM CDT LABORATORY Glucose 109(H) 70 - 99 mg/dL 09/27/2024 5:51 PM CDT LABORATORY Blood STRUCTURE OF LEFT UPPER LIMB / Unknown Venipuncture / Unknown 09/27/2024 5:23 PM CDT 09/27/2024 5:23 PM CDT us Martine Rios MD LAB - BLOOD ORDERABLES Final Result LABORATORY [facility] Acute Care Lab [address] Lab (1st floor, no room number) [place] [address], [facility] documented in this encounter Visit Diagnoses Diagnosis Limbal stem cell deficiency, unspecified laterality Immunosuppressed status Unspecified disorder of immune mechanism MCC use of drug Encounter for long-term (current) use of other medications Other specified postprocedural states documented in this encounter Care Teams Sap Bpc Developer Relationship Specialty Start Date End Date Martina Strickland PA-C PCP - General Physician Insurance Attorney 07/19/19 Ailin Zavala MD Internal Medicine 07/28/11 Amadeo King MD [address] [place] [phone] Ophthalmology 12/22/19 Joseph Trivedi MD [facility] [address] [place], [place] [phone] Rheumatology 05/21/20 Rene Grant MD 6 [place], [place] [phone] Assigned Surgical Provider 09/12/22 Manju Perkins, JENNIFER Registered Nurse 05/24/24 Martine Rios MD [address] [place] [phone] Assigned Nephrology Provider 07/02/24 documented as of this encounter
[2024-09-27 19:34] VITALS: BP 123/88; PULSE 102; RESP 20; TEMP 36.5; O2SAT 98; BMI 41.8
--- NOTE | 2024-09-27 19:47 | CRLHL7_ITS ---
For Patients: As a result of the Century Cures Act, medical imaging exams and procedure reports are released immediately into your electronic medical record. You may view this report before your referring provider. If you have questions, please contact your health care provider. INDICATION: Leg pain and swelling. TECHNIQUE: Ultrasound venous duplex bilateral lower extremity. Compression venous exam was performed using owens-scale, color Doppler, and spectral Doppler analysis. COMPARISON: None. FINDINGS: Deep veins: Sonographic imaging demonstrates the bilateral common femoral, deep femoral, superficial femoral, popliteal, and posterior tibial veins to be fully compressible with normal color Doppler blood flow. Superficial veins: Greater saphenous veins are fully compressible. No popliteal cyst. IMPRESSION: No DVT in the bilateral lower extremities Dictated by Nabila Gomez MD @ 09/27/2024 9:35:34 PM (Electronically Signed)
--- NOTE | 2024-09-27 19:49 | ED_ITS ---
HPI - General Adult General Date Seen: 09/27/24 Chief complaint: Lower Extremity Swelling Stated complaint: L & R legs swelling from knees down Time Seen by Provider: 09/27/24 19:41 Source: patient Mode of arrival: ambulatory Limitations: no limitations History of Present Illness HPI narrative: Patient is a 59-year-old female who is currently on immunosuppression medication for recent corneal transplant and stem cell transplant presenting to the emergency department for lower extremity edema. She states she has had swelling in both legs for several weeks. Has been following up with her primary care provider about this and has been placed on Lasix and given fluid restrictions. This is not causing any improvement in her symptoms. Follow-up again with her doctor yesterday ankle lab work done showing no concerning abnormalities. She did speak to Dr. They did check for possible bilateral blood clots causing her symptoms. She is not having any chest pain or shortness of breath. Denies lightheadedness, dizziness, fevers, chills, weakness, numbness, abdominal pain. Does state she is wondering if her medications is causing this. She is on tacrolimusm, mycophenolate mofetil. No other concerns noted at this time Related Data Home Medications ?Medication ?Instructions ?Recorded ?Confirmed omega-3 fatty acids 1,000 mg 1,000 mg PO QDAY 12/24/21 06/05/24 capsule prednisolone acetate 1 % eye 1 drp ophthalmic (eye) QI D 12/24/21 06/05/24 drops,suspension gabapentin 300 mg capsule 300 mg PO QDAY 06/26/2205/11 Multiple vitamin PO DAILY 07/27/22 06/05/24 latanoprost 0.005 % eye drops 1 drp ophthalmic (eye) B ID 07/27/22 06/05/24 mycophenolate mofetil 500 mg tablet 500 mg PO BID 07/0906/05/24 tacrolimus 0.1 % topical ointment 1 applic topical QHS 07/27/22 06/05/24 ofloxacin 0.3 % eye drops 1 - 2 drp ophthalmic (eye) B ID 04/18/24 06/05/24 polymyxin B sulfate 10,000 1 - 2 drp ophthalmic (eye) BID 06/05/24 06/05/24 unit-trimethoprim 1 mg/mL eye drops Previous Rx's ?Medication ?Instructions ?Recorded ondansetron 4 mg disintegrating 4 mg PO Q8H PRN nausea and 03/18/23 tablet vomiting #10 tabs levothyroxine 125 mcg tablet 125 mcg PO DAILY #90 tabs 01/05/24 metformin 500 mg tablet,extended 2,000 mg (4 x 500 mg) PO DAILY 90 01/05/24 release 24 hr days #360 tabs Allergies Allergy/AdvReac Type Severity Reaction Status Date / Time No Known Drug Allergies Allergy Verified 06/05/24 11:04 Review of Systems Status of ROS: Reports: 10 or more systems reviewed and unremarkable except as noted in History and below [facility] Medical History Irregular menstrual bleeding ?N92.6 - Irregular menstruation, unspecified (ICD-10) Recurrent UTI (urinary tract infection) ?N39.0 - Urinary tract infection, site not specified (ICD-10) UTI (urinary tract infection) (~12/2021) ?N39.0 - Urinary tract infection, site not specified (ICD-10) Gallstones ?K80.20 - Calculus of gallbladder without cholecystitis without obstruction (ICD-10) Vertigo ?R42 - Dizziness and giddiness (ICD-10) Cellulitis (~03/2022) ?L03.90 - Cellulitis, unspecified (ICD-10) Surgical History History of cornea transplant ?Z94.7 - Corneal transplant status (ICD-10) Family History Mother Arthritis Maternal Grandmother Colon cancer Family/Other Coronary artery disease Social History Narrative: Non-smoker. with adult children. Rare alcohol use. Denies recreational drug use. Employed for the [employer]- working with the [employer] program. What is your current living situation?: I presently have a place to live Problems where you live: no known problems In the past 12 months, utilities in danger of being shut off: no In past 12 months, lack of transportation kept you from medical appts, meetings, work, or getting things needed for daily living: no In the past 12 mos, have been you worried that your food would run out before you had money to buy more?: never true In the past 12 mos, the food you bought just didn't last and you didn't have money to buy more?: never true Smoking Status: Never smoker Do you use any of these nicotine containing products: None Second hand tobacco smoke exposure: No How often do you have a drink containing alcohol: never How often do you have six or more drinks on one occasion: Never AUDIT-C Alcohol total score: 0 Non-prescribed substance use: denies use How often does anyone, including family, friends and others, physically hurt you : never How often does anyone, including family, friends and others, insult or talk down to you: never How often does anyone, including family, friends and others, threaten you with harm: never How often does anyone, including family, friends and others, scream or curse at you: never service: No Exam Narrative: Exam Narrative: Const: Well-nourished, Well-developed, in mild distress Eyes: PERRL, no conjunctival injection, and symmetrical lids HENT: Atraumatic external nose and ears. Moist mucous membranes. Neck: Symmetric, trachea midline, No thyromegaly. CVS: RRR, No murmurs or gallops. Peripheral pulses 2+ and equal in all extremities, lower extremity edema noted bilaterally up to the knee. RESP: Unlabored respiratory effort. Clear to auscultation bilaterally. GI: Nontender/Nondistended, No rebound or guarding. MSK:Extremities w/o deformity, Normal Active ROM, leg diffusely tender to palpation Skin: Warm, Dry. No rashes or lesions. Neuro: Normal Muscle tone, No focal neurological deficits. Psych: Awake, Alert, & Oriented x3. Appropriate mood and affect. Const: Vital Signs, click to edit/add: Vital Signs - 24 hr 09/27/24 19:34 Temperature 97.7 F Pulse Rate [Pulse Oximeter] 102 H Respiratory Rate 20 Blood Pressure [Ri ght Upper Arm] 123/88 Pulse Oximetry 98 Oxygen Delivery Me thod Room Air Course Vital Signs Vital signs: Initial Vital Signs Temperature 97.7 F 09/27/24 19:34 Temperature Source Temporal Artery Scan 09/27/24 19:34 Pulse Rate 102 H 09/27/24 19:34 Respiratory Rate 20 09/27/24 19:34 Blood Pressure 123/88 09/27/24 19:34 Blood Pressure Mean 99 09/27/24 19:34 Blood Pressure Position Sitting 09/27/24 19:34 Pulse Oximetry 98 09/27/24 19:34 Oxygen Delivery Method Room Air 09/27/24 19:34 Vital Signs Temperature 97.7 F 09/27/24 19:34 Pulse Rate 102 H 09/27/24 19:34 Respiratory Rate 20 09/27/24 19:34 Blood Pressure 123/88 09/27/24 19:34 Pulse Oximetry 98 09/27/24 19:34 Oxygen Delivery Method Room Air 09/27/24 19:34 Temperature 97.7 F 09/27/24 19:34 Pulse Rate 102 H 09/27/24 19:34 Respiratory Rate 20 09/27/24 19:34 Blood Pressure 123/88 09/27/24 19:34 Pulse Oximetry 98 09/27/24 19:34 Oxygen Delivery Method Room Air 09/27/24 19:34 Medical Decision Making [facility] Narrative Medical decision making narrative: Patient is a 59-year-old female presenting for lower extremity edema. She does have some concern for blood clots. No history of blood clots. Will seems unlikely she would get bilateral blood clots I will order ultrasounds to confirm she does not have them. Will also order CBC, troponin, EKG, BNP, urinalysis, CMP. Symptoms for walk be related to her medication she is on as they are known to cause the symptoms. Lab work returned showing no acute concerning abnormalities. Preliminary read of the ultrasound shows no acute concerning abnormalities. We cannot get the official read from the radiologist due to technical issues. I do feel comfortable discharging this patient I do believe symptoms are most likely from medication. Lab Data Labs: Lab Results 09/27/24 09/27/24 Range/Units 19:48 20:00 WBC 6.04 (4.50-11.00) K/uL RBC 3.87 L (4.00-5.20) m/uL Hgb 12.1 (12.0-16.0) gm/dL Hct 36.6 (33.0-51.0) % MCV 95 (80-100) fL MCH 31 (26-34) pg MCHC 33 (32-36) gm/dL RDW Coeff of Gibran 13.8 (11.5-15.5) % Plt Count 231 (140-440) K/uL Neut % (Auto) 57.7 (42.0-72.0) % Lymph % (Auto) 34.1 (20-44) % Bladen % (Auto) 4.5 (0.0-11.0) % Eos % (Auto) 2.3 (0.0-7.0) % Baso % (Auto) 1.2 (0.0-3.0) % Neut # (Auto) 3.49 (1.7-7.0) K/uL Lymph # (Auto) 2.06 (0.90-2.90) K/uL Bladen # (Auto) 0.30 (0.00-0.90) K/UL Eos # (Auto) 0.14 (0.00-0.50) K/uL Baso # (Auto) 0.07 (0.00-0.30) K/uL Abs Immat Gran (auto) 0.01 (0.00-0.30) K/uL Imm/Tot Granulo (auto) 0.2 % Sodium 139 (135-149) mmol/L Potassium 4.3 (3.6-5.1) mmol/L Chloride 106 (96-114) mmol/L Carbon Dioxide 24 (20-32) mmol/L Anion Gap 9 (7-15) mEq/L BUN 13 (7-30) mg/dL Creatinine 0.6 (0.5-1.5) mg/dL Estimated Creat Clear 83.51 Estimated GFR 103 ml/min Glucose 107 (60-115) mg/dL Calcium 9.6 (8.4-10.6) mg/dL Total Bilirubin 0.4 (0.1-1.5) mg/dL AST 28 (12-35) U/L ALT 28 (4-35) U/L Alkaline Phosphatase 58 (40-150) U/L Total Protein 6.9 (6.0-8.3) g/dL Albumin 4.5 (3.3-5.0) g/dL POC Troponin I 0.00 L (0.01-0.04) ng/ml Discharge Plan Discharge Clinical Impression: Edema, peripheral Patient Disposition: Home, Self-Care Condition: Stable Instructions: Leg Edema (ED) Additional Instructions: I do believe your leg swelling and pain is most likely related to your medications. I do recommend following up with the prescribing provider about this. Return to emergency department for new or worsening symptoms Prescriptions: No Action prednisolone acetate 1 % drops,suspension 1 drp ophthalmic (eye) QID omega-3 fatty acids 1,000 mg capsule 1,000 mg PO QDAY Multiple vitamin PO DAILY mycophenolate mofetil 500 mg tablet 500 mg PO BID tacrolimus 0.1 % ointment 1 applic topical QHS Rx Instructions: right eye latanoprost 0.005 % drops 1 drp ophthalmic (eye) BID ondansetron 4 mg tablet,disintegrating 4 mg PO Q8H PRN (Reason: nausea and vomiting) Qty: 10 0RF ofloxacin 0.3 % drops 1 - 2 drp ophthalmic (eye) BID polymyxin B sulf-trimethoprim 10,000 unit- 1 mg/mL drops 1 - 2 drp ophthalmic (eye) BID gabapentin 300 mg capsule 300 mg PO QDAY Patient Comments: TAKE 1 CAPSULE BY MOUTH AT BEDTIME levothyroxine 125 mcg tablet 125 mcg PO DAILY Qty: 90 3RF metformin 500 mg tablet extended release 24 hr 2,000 mg PO DAILY 90 Days Qty: 360 3RF Follow Up/Referrals: Fabi Nguyen PA-C [Primary Care Provider, Family Practice] Stand Alone Forms: [employer] Info Instructions
[2024-09-27 20:05] LABS: Basophils Absolute Auto 0.07 K/uL (0.00-0.30); Basophils Percent Auto 1.2 % (0.0-3.0); Eosinophils Absolute Auto 0.14 K/uL (0.00-0.50); Eosinophils Percent Auto 2.3 % (0.0-7.0); Hematocrit 36.6 % (33.0-51.0); Hemoglobin* 12.1 gm/dL (12.0-16.0); Immature Granulocytes Abs Auto 0.01 K/uL (0.00-0.30); Immature Granulocytes Pct Auto 0.2 %; Lymphocytes Absolute Auto 2.06 K/uL (0.90-2.90); Lymphocytes Percent Auto 34.1 % (20-44); Mean Corpuscular HGB Conc 33 gm/dL (32-36); Mean Corpuscular Hemoglobin 31 pg (26-34); Mean Corpuscular Volume 95 fL (80-100); Monocytes Percent Auto 4.5 % (0.0-11.0); Neutrophils Absolute Auto 3.49 K/uL (1.7-7.0); Neutrophils Percent Auto 57.7 % (42.0-72.0); Platelet Count* 231 K/uL (140-440); RDW Coefficient of Variation % 13.8 % (11.5-15.5); Red Blood Count 3.87 m/uL (4.00-5.20); White Blood Count* 6.04 K/uL (4.50-11.00)
--- OUTSIDE RECORDS SUMMARY | 2024-09-27 20:26 | XMS_ITS | Encounter Summary ---
Author Organization [facility] Address [address] [place] [address] Care Team Providers Care Vp Biology Name Role Phone Ailin Zavala MD Unavailable [phone] Ailin Zavala MD Primary Care Provider Martina Strickland PA-C Primary Care Provider Amadeo King MD Unavailable [phone] Claudia Marcus MD Unavailable [phone] Amadeo King MD Unavailable [phone] Joseph Trivedi MD Unavailable [phone] Claudia Marcus MD Unavailable [phone] Emma Deshpande MD Unavailable + Kishan Spain OD Unavailable [phone] Emma Deshpande MD Unavailable [phone] Kishan Spain OD Unavailable [phone] Emma Deshpande MD Unavailable + Rene Grant MD Unavailable [phone] Amadeo Winston MD Unavailable [phone] Amadeo Winston MD Unavailable + [phone] Rene Grant MD Unavailable [phone] Rene Grant MD Unavailable [phone] Manju Perkins RN Unavailable Unavaila Martine Sr MD Unavailable Reason for Visit * Reason Onset Date Comments Prior Auth - Medication 04/25/2019 CYCLOSPO RINE 1% in artificial tears- APPEAL DENIED Encounter Details Date Type Department Care Team (Late st Contact Info) Description 04/25/2019 Telephone [facility] Eye [facility] Building [address] [facility] [address] [facility] [address] [place] [address] Candy Jett, [address] [place] [address] Prior Auth - Medication (CYCLOSPORINE 1% in [...] AM CDT 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 No / Unsure 12/01/2022 3:17 PM CDT documented as of this encounter Miscellaneous Notes * Telephone Encounter - Amarilys Roberts - 05/19/2019 12:50 PM CST Images from the original note were not included. MEDICATION APPEAL DENIED Medication: CYCLOSPORINE 1% in artificial tears- APPEAL DENIED Denial Date: 05/19/2019 Denial Rational: Second Level Appeal Information: Second level appeals will be managed by the clinic staff and provider. DIAL MASSEUR * Telephone Encounter - Amarilys Roberts - 05/18/2019 1:36 PM CST Insurance called for additional information. Answered and should receive an outcome by 05/19/18. Case# [id number] DIAL MASSEUR * Telephone Encounter - Amarilys Roberts - 05/16/2019 1:19 PM CST Images from the original note were not included. Received addition form to fill out. Completed and faxed back with all original requests. DIAL MASSEUR * Telephone Encounter - Amarilys Roberts - [...] suggest to re-fax to a different # [phone] (Benefit Coverage Review). According to the rep, the case has not been touched since the denial 05/08/19. Case # [id number].Re- faxed appeal again marked urgent. DIAL MASSEUR DIAL MASSEUR * Telephone Encounter - Amarilys Roberts - 05/12/2019 12:22 PM CST Medication Appeal Initiation We have initiated an appeal for the requested medication: Medication: CYCLOSPORINE 1% in artificial tears- APPEAL Pending Appeal Start Date: 05/12/2019 Insurance Company: [employer] - Comments: Appeal letter faxed to [employer] [phone]. . DIAL MASSEUR * Telephone Encounter - Amarilys Roberts - 05/08/2019 12:43 PM CST Images from the original note were not included. PRIOR AUTHORIZATION DENIED Medication: CYCLOSPORINE 1% in artificial tears- DENIED Denial Date: 05/08/2019 Denial Rational: Appeal Information: DIAL MASSEUR * Telephone Encounter - Amarilys Roberts - 05/04/2019 11:24 AM CST Images from the original note were not included. Received message from insurance to have pharmacy run the main ingredient. Per pharmacy, previous NDC has been discontinued, therefore new NDC is requested to be covered. New NDC [id number]. Old NDC [id number]. Called insurance to have new NDC put on formulary. Refaxed request back stating this. Rep was just going to fax over a new PA form, but we had already fax one in, just refaxing with new information. DIAL MASSEUR * Telephone Encounter - Vesna Baca - 05/04/2019 10:59 AM CST Rec'd a call from Armando @ [facility] pharmacy inquiring on status of P/A. Advised of the below. DIAL MASSEUR * Telephone Encounter - Aamrilys Roberts - 05/02/2019 11:28 AM CST Manually faxed PA request to [employer]. DIAL MASSEUR * Telephone Encounter - Amarilys Roberts - 04/25/2019 3:41 PM CST Images from the original note were not included. Central Prior Authorization Team PA Initiation Medication: CYCLOSPORINE 1% in artificial tears Insurance Company: [employer] - Pharmacy Filling the Rx: [id number] [place], [place] - [address] [facility] [address] Filling Pharmacy Filling Pharmacy Fax: Start Date: 04/25/2019 DIAL MASSEUR * Telephone Encounter - Martina Marcano - 04/25/2019 2:56 PM CST Images from the original note were not included. Medication is documented in the After Visit Summary under the media tab. DIAL MASSEUR documented in this encounter Plan of Treatment Upcoming Encounters Date Type Department Care Team (Late st Contact Info) Description 09/29/2024 4:05 PM CDT Office Visit [facility] Trans[facility] [address] [place] [phone] Martine Rios MD [address] [place], [place] [phone] 09/29/2024 5:30 PM CDT Ancillary Procedure [facility] Imaging Center [facility] [address] [place] [address] 1st [place] [phone] Martine Rios MD [address] [place] [address] 10/30/2024 3:00 PM CDT Office Visit [facility] Clinic [address] [phone] Amadeo King MD [address] [facility] [address] [place] [address] 12/05/2024 3:00 PM CDT Office Visit [facility] Eye [facility] [address] [facility] 9[address] Clin 9A [place] [phone] Emma Deshpande MD [address] [facility] [address] [place] [address] documented as of this encounter Visit Diagnoses Not on filedocumented in this encounter Additional Health Concerns Infection Onset Date Last Indicated Resolved Time Rule Out C-difficile 07/11/2024 07/11/2024 025 11:41 PM REMEDIAL MASSEUR documented as of this encounter Care Teams Vp Biology Relationship Specialty Start Date End Date Ailin Zavala MD PCP - General Internal Medicine 07/28/11 07/18/19 Martina Strickland PA-C PCP - General Physician Commercial Diver 07/19/19 Ailin Zavala MD Internal Medicine 07/28/11 Amadeo King MD [address] [facility] [address] [place] [address] Ophthalmology 12/22/19 Claudia Marcus MD [facility] EYE [facility] [address] [phone] Assigned Surgical Provider 03/01/20 05/25/20 Amadeo King MD [address] [place] [address] 493 [place], [place] [phone] Assigned PCP 04/07/20 06/02/23 Joseph Trivedi MD [facility] [address] [facility] [address] [place], [place] [phone] Rheumatology 05/21/20 Claudia Marcus MD [facility] EYE [facility] [address] [place] [phone] Assigned Surgical Provider 06/30/20 10/19/20 Emma Deshpande MD [address] [place], [place] [address] [place], [place] [address] Assigned Surgical Provider 05/26/20 06/29/20 Kishan Spain, ANDI [address] [place] [address] 4th [place] [phone] Assigned Surgical Provider 10/20/20 11/23/20 Emma Deshpande MD [address] [place] [address] [phone] Assigned Surgical Provider 11/24/20 12/07/20 Kishan Spain OD 9 [facility] 4th [place] [phone] Assigned Surgical Provider 12/08/20 03/27/22 Emma Deshpande MD [address] [place] [address] 911 [place] [address] Assigned Surgical Provider 03/28/22 04/03/22 Rene Grant MD [address] [place] [address] Assigned Surgical Provider 04/04/22 08/21/22 Amadeo Winston MD [address] [place] [address] Assigned Surgical Provider 08/22/22 08/28/22 Amadeo Winston MD [address] [place] [address] Assigned Surgical Provider 09/05/22 09/11/22 Rene Grant MD [address] [place] [address] Assigned Surgical Provider 08/29/22 09/04/22 Rene Grant MD [address] [place] [address] Assigned Surgical Provider 09/12/22 Manju Perkins, JENNIFER Registered Nurse 05/24/24 Martine Rios MD [address] [place] [address] [phone] Assigned Nephrology Provider 07/02/24 documented as of this encounter
--- OUTSIDE RECORDS SUMMARY | 2024-09-27 20:26 | XMS_ITS | Encounter Summary ---
Author Organization [facility] Address [address] [place] [address] Care Team Providers Care Ring Sewer Name Role Phone Ailin Zavala MD Unavailable [phone] Ailin Zavala MD Primary Care Provider Martina [phone] Rene Grant MD Unavailable [phone] Reen Grant MD Unavailable Manju Perkins RN Unavailable Unavaila Martine Sr MD Unavailable Reason for Visit * Reason Onset Date Comments Referral 09/12/2018 Encounter Details Date Type Department Care Team (Late st Contact Info) Description 09/12/2018 Telephone [facility] Eye 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 Lesa Llamas at [facility]. To be seen within the week and a corneal visitfor next week. Call to schedule, faxing notes Action Taken: Message routed to: [facility] documented in this encounter Plan of Treatment Upcoming Encounters Date Type Department Care Team (Late st Contact Info) Description 09/29/2024 4:05 PM CDT Office Visit [facility] Transplant Clinic [address] [place] [phone] Martine Rios MD 500 [place], [place] [phone] 09/29/2024 5:30 PM CDT Ancillary Procedure [facility] 9[address] [facility] 1st [place] [phone] Martine Rios MD [address] [place], [place] [address] 10/30/2024 3:00 PM CDT Office Visit [facility] Eye [facility] [address] [facility] 9th [address] Clin [address]A [place] [phone] Amadeo King MD [address] [facility] 493 [place], [place] [address] 12/05/2024 3:00 PM CDT Office Visit [facility] Eye [facility] [address] [facility] Emergency Department 9th [facility] [address]A [place] [phone] Emma Deshpande MD [address] [facility] [address] [place], [place] [phone] documented as of this encounter Visit Diagnoses Not on filedocumented in this encounter Additional Health Concerns Infection Onset Date Last Indicated Resolved Time Rule Out C-difficile 07/11/2024 07/11/2024 025 11:41 PM RULING TECHNICIAN documented as of this encounter Care Teams Ring Sewer Relationship Specialty Start Date End Date Ailin Zavala MD PCP - General Internal Medicine 07/28/11 07/18/19 Martina Strickland PA-C PCP - General Physician Mold Inspector 07/19/19 Ailin Zavala MD Internal Medicine 07/28/11 Amadeo King MD [address] [place] [address] [phone] Ophthalmology 12/22/19 Claudia Marcus MD [facility] EYE [facility] [address] [phone] Assigned Surgical Provider 03/01/20 05/25/20 Amadeo King MD [address] [place] [address] [phone] Assigned PCP 04/07/20 06/02/23 Joseph Trivedi MD [facility] [address] [facility] [address] [phone] Rheumatology 05/21/20 Claudia Marcus MD [facility] EYE [facility] [address] [phone] Assigned Surgical Provider 06/30/20 10/19/20 Emma Deshpande MD [address] [place] [address] Assigned Surgical Provider 05/26/20 06/29/20 Kishan Spain, OD [address] [place] [address] [phone] Assigned Surgical Provider 10/20/20 11/23/20 Emma Deshpande MD [address] [place] [address] Assigned Surgical Provider 11/24/20 12/07/20 Kishan Spain, OD [address] [place] [address] [phone] Assigned Surgical Provider 12/08/20 03/27/22 Emma Deshpande MD [address] [place] [address] Assigned Surgical Provider 03/28/22 04/03/22 Rene Grant MD [address] [place] [address] Assigned Surgical Provider 04/04/22 08/21/22 Amadeo Winston MD [address] [place] [address] Assigned Surgical Provider 08/22/22 08/28/22 Amadeo Winston MD [facility] [place] [address] Assigned Surgical Provider 09/05/22 09/11/22 Rene Grant MD [address] [place] [address] Assigned Surgical Provider 08/29/22 09/04/22 Rene Grant MD [address] [place] [address] Assigned Surgical Provider 09/12/22 Manju Perkins, JENNIFER Registered Nurse 05/24/24 Martine Rios MD [address] [place] [address] [phone] Assigned Nephrology Provider 07/02/24 documented as of this encounter
--- OUTSIDE RECORDS SUMMARY | 2024-09-27 20:26 | XMS_ITS | Encounter Summary ---
Author Organization [place] Address [address] [place] [address] Care Team Providers Care Raftsman Name Role Phone Sally Ailin Hebert MD Unavailable [phone] Martina Strickland PA-C Primary Care Provider Amadeo King MD Unavailable + [phone] Claudia Marcus MD Unavailable [phone] Amadeo King MD Unavailable [phone] Joseph Trivedi MD Unavailable [phone] Claudia Marcus MD Unavailable [phone] Emma Deshpande MD Unavailable [phone] Kishan Spain OD Unavailable +[phone] Emma Deshpande MD Unavailable [phone] Kishan Spain OD Unavailable [phone] Emma Deshpande MD Unavailable [phone] Rene Grant MD Unavailable [phone] Amadeo Winston MD Unavailable [phone] Amadeo Winston MD Unavailable +[phone] Rene Grant MD Unavailable +[phone] Rene Grant MD Unavailable +[phone] Manju Perkins RN Unavailable Unavaila ble Martine Rios MD Unavailable Encounter Details Date Type Department Care Team (Late st Contact Info) Description 03/27/2020 MyC Medical Advice [address] [phone] Jessica Chisholm, RN Social History Tobacco Use Types Packs/Day Years Used Date Smoking Tobacco: Never Smokeless Tobacco: Never Alcohol Use Standard Drinks/Week Comments No 0 (1 standard drink = 0.6 oz pur e alcohol) PHQ-2 Answer Date Recorded PHQ-2 Score 0 11/22/2018 Comments No Sex and Gender Information Value Date Recorded Sex Assigned at Female 2019 10:10 AM CDT 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:59 AM LEAD GENERATOR Gender Identity Female 2019 10:10 AM CDT Sexual Orientation Straight 2019 10 :10 AM CDT COVID-19 Exposure Response Date Recorded In the last month, have you been in contact with someone who was confirmed or suspected to have Coronavirus / COVID-19? No / Unsure 03/13/2020 2:59 PM LEAD GENERATOR documented as of this encounter Plan of Treatment Upcoming Encounters Date Type Department Care Team (Late st Contact Info) Description 09/29/2024 4:05 PM CDT Office Visit [facility] Transplant [facility] [address] [place] [phone] Martine Rios MD 500 [place], [place] [address] 09/29/2024 5:30 PM CDT Ancillary Procedure [facility] Imaging Center [facility] 909 [facility] 1st [place] [address] Martine Rios MD 500 [place], [place] 6[address] 10/30/2024 3:00 PM CDT Office Visit [facility] Eye Clinic [address] [phone] Amadeo King MD 420 [facility] 493 [place], [place] [address] 12/05/2024 3:00 PM CDT Office Visit [facility] Eye [facility] 516 [facility] 9th Fl Clin 9A [place] [phone] Emma Deshpande MD 516 [facility] [address] 911 [place] [address] documented as of this encounter Visit Diagnoses Not on filedocumented in this encounter Additional Health Concerns Infection Onset Date Last Indicated Resolved Time Rule Out C-difficile 07/11/2024 07/11/2024 025 11:41 PM LEAD GENERATOR documented as of this encounter Care Teams Raftsman Relationship Specialty Start Date End Date Martina Strickland PA-C PCP - General Physician Wiping Cloth Cutter 07/19/19 Ailin Zavala MD Internal Medicine 07/28/11 Amadeo King MD 420 [facility] 493 [place] [address] Ophthalmology 12/22/19 Claudia Marcus MD [facility] EYE [facility] [address] [phone] Assigned Surgical Provider 03/01/20 05/25/20 Amadeo King MD 420 [facility] 493 [place] [address] Assigned PCP 04/07/20 06/02/23 Joseph Trivedi MD [facility] [address] [facility] 215 [place], [place] [phone] Rheumatology 05/21/20 Claudia Marcus MD [facility] EYE [facility] [address] [place] [phone] Assigned Surgical Provider 06/30/20 10/19/20 Emma Deshpande MD [address] [place] [address] Assigned Surgical Provider 05/26/20 06/29/20 Kishan Spain, OD [address] [place] [phone] Assigned Surgical Provider 10/20/20 11/23/20 Emma Deshpande MD [address] [place] [address] 907855 Assigned Surgical Provider 11/24/20 12/07/20 Kishan Spain, OD [address] [place] [phone] Assigned Surgical Provider 12/08/20 03/27/22 Emma Deshpande MD [address] [place] [address] Assigned Surgical Provider 03/28/22 04/03/22 Rene Grant MD [address] [place] [address] Assigned Surgical Provider 04/04/22 08/21/22 Amadeo Winston MD [address] [place] [address] 123605 Assigned Surgical Provider 08/22/22 08/28/22 Amadeo Winston MD [address] [place] [address] 784785 Assigned Surgical Provider 09/05/22 09/11/22 Rene Grant MD [address] [place] [address] Assigned Surgical Provider 08/29/22 09/04/22 Rene Grant MD [address] [place] [address] 798305 Assigned Surgical Provider 09/12/22 Manju Perkins, JENNIFER Registered Nurse 05/24/24 Martine Rios MD [address] [place] [address] 190435 Assigned Nephrology Provider 07/02/24 documented as of this encounter
--- OUTSIDE RECORDS SUMMARY | 2024-09-27 20:26 | XMS_ITS | Encounter Summary ---
Author Organization [place] Address [address] [place] [address] Care Team Providers Care Management Nurse Rn Name Role Phone Ailin Zavala MD Unavailable [phone] Ailin Zavala MD Primary Care Provider Martina [...] Unavailable +[phone] Rene Grant MD Unavailable [phone] Manju Perkins RN Unavailable Unavaila Martine Sr MD Unavailable [phone] Encounter Details Date Type Department Care Team (Late Contact Info) Description 11/18/2018 Telephone [facility] Eye [facility] 516 [facility] 9 Pr Clin 9A [place] [phone] Hailee Stone MD Social History Tobacco Use [...] AM CDT 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 No / Unsure 12/01/2022 3:17 PM CDT documented as of this encounter Plan of Treatment Upcoming Encounters Date Type Department Care Team (Late Contact Info) Description 09/29/2024 4:05 PM CDT Office Visit [facility] Transplant Clinic 909 [place] [phone] Martien Rios MD 500 [place] [address] 09/29/2024 5:30 PM CDT Ancillary Procedure [facility] 9[address] [facility] 1st [place] [phone] Martine Rios MD 500 [place] [address] 10/30/2024 3:00 PM CDT Office Visit [facility] Eye [facility] 516 [facility] 9th [facility] 9A [place] [phone] Amadeo King MD 420 [facility] 493 [place], [place] [address] 12/05/2024 3:00 PM CDT Office Visit [facility] Eye [place] [address] [facility] 9A [place] [phone] Emma Deshpande MD 516 [facility] 911 [place], [place] [address] documented as of this encounter Visit Diagnoses Not on filedocumented in this encounter Additional Health Concerns Infection Onset Date Last Indicated Resolved Time Rule Out C-difficile 07/11/2024 07/11/2024 025 11:41 PM SPANISH LECTURER documented as of this encounter Care Teams Management Nurse Rn Relationship Specialty Start Date End Date Ailin Zavala MD PCP - General Internal Medicine 07/28/11 07/18/19 Martina Strickland PA-C PCP - General Physician Medical Equipment Technician 07/19/19 Ailin Zavala MD Internal Medicine 07/28/11 Amadeo King MD 420 [facility] 493 [place] [address] Ophthalmology 12/22/19 Claudia Marcus MD [facility] EYE [facility] [address] [place] [phone] Assigned Surgical Provider 03/01/20 05/25/20 Amadeo King MD [address] 329835 Assigned PCP 04/07/20 06/02/23 Joseph Trivedi MD [facility] [address] [facility] 215 [place] [address] Rheumatology 05/21/20 Claudia Marcus MD [facility] EYE [facility] [address] [place] [phone] Assigned Surgical Provider 06/30/20 10/19/20 Emma Deshpande MD 516 [facility] 911 [place], [place] [address]3915 Assigned Surgical Provider 05/26/20 06/29/20 Kishan Spain OD 909 [facility] 4th [place] [phone] Assigned Surgical Provider 10/20/20 11/23/20 Emma Deshpande MD [address] [place] [address] Assigned Surgical Provider 11/24/20 12/07/20 Kishan Spain OD [address] [place] [address] 4th [place] [phone] Assigned Surgical Provider 12/08/20 03/27/22 Emma Deshpande MD [address] [place] [address] Assigned Surgical Provider 03/28/22 04/03/22 Rene Grant MD [address] [place] [address] Assigned Surgical Provider 04/04/22 08/21/22 Amadeo Winston MD [address] [place] [address] Assigned Surgical Provider 08/22/22 08/28/22 Amadeo Winston MD [address] [place] [address] Assigned Surgical Provider 09/05/22 09/11/22 Rene Grant MD [address] [place] [address] [phone] Assigned Surgical Provider 08/29/22 09/04/22 Rene Grant MD [address] [place] [address] Assigned Surgical Provider 09/12/22 Manju Perkins, JENNIFER Registered Nurse 05/24/24 Martine Rios MD 500 [place] [address] Assigned Nephrology Provider 07/02/24 documented as of this encounter
--- OUTSIDE RECORDS SUMMARY | 2024-09-27 20:26 | XMS_ITS | Clinical Summary ---
Author Organization [facility] Address [address] [place] [address] Care Team Providers Care Roll Inspector Name Role Phone Martina Strickland PA-C Primary Care Provider [phone] Allergies Active Allergy Reactions Criticality Noted Date Comments Lidocaine Other - Describe In Comment Field 06/29/2017 Received Lido with epi at dentist office,states being shaky was from epi. Medications levothyroxine (SYNTHROID) 112 mcg tablet Take 112 mcg by mouth once daily. 3 8 Active metFORMIN (GLUCOPHAGE XR) 500 mg Extended-Releas e tablet Take 1,000 mg by mouth 2 times daily with meals. Active medication order composer [place] oil 1000 mg daily Active UBIDECARENONE (COQ-10 ORAL) Take 10 mg by mouth once daily. Active MULTIVITAMIN (MULTIPLE VITAMINS ORAL) Take 1 tablet by mouth once daily. Active fluconazole (DIFLUCAN) 150 mg tablet Take 150 mg by mouth once daily. 0 8 Active netarsudil (RHOPRESSA) 0.02 % drop Place 1 Drop into right eye at bedtime. 9 Active prednisoLONE acetate 1% ophthalmic (ECONOPRED PLUS, PRED FORTE, OMNIPRED) suspension Place 1 Drop into the eye(s) 4 times daily. 5 mL 9 Active Additional Information Patient taking differently:1 DropRight EyeQID, Reported on 04/17/2019 dorzolamide-sixto olol (COSOPT) 2-0.5 % ophthalmic solution Place 1 Drop into the eye(s). 9 Active sodium chloride (ADSORBONAC) 2 % ophthalmic solution Place 1-2 Drops into the eye(s). 9 Active omega-3 fatty acids (FISH OIL CONCENTRATE) cap Take 1,000 mg by mouth once daily. Active tacrolimus 0.03% (PROTOPIC) 0.03 % ointment Place 1 Drop into right eye at bedtime. Active mycophenolate (CELLCEPT) 250 mg capsule Take 4 capsules by mouth every 12 hours. 240 capsule 04/18/2019 10:31 AM WEED INSPECTOR 9 Active trimethoprim-nolan lfamethoxazole, 80-400 mg, (BACTRIM SS; SEPTRA SS) tab Take 1 tablet by mouth once daily. 30 tablet 04/18/2019 10:31 AM WEED INSPECTOR 9 Active omeprazole (PRILOSEC) 20 mg Delayed-Release capsule Take 1 capsule by mouth once daily before a meal. 30 capsule 1 04/18/2019 10:31 AM WEED INSPECTOR 9 Active predniSONE (DELTASONE) 20 mg tablet Take 3 tablets by mouth once daily with a meal. 90 tablet 1 04/18/2019 10:31 AM WEED INSPECTOR 9 Active tacrolimus (PROGRAF) 1 mg capsule Take 1 capsule by mouth once daily in the evening. 30 capsule 1 04/18/2019 10:31 AM WEED INSPECTOR 9 Active ofloxacin 0.3 % ophthalmic (OCUFLOX) 0.3 % ophthalmic solution Place 1 Drop in surgical eye 4 times daily. 5 mL 04/18/2019 10:31 AM WEED INSPECTOR 9 Active valGANciclovir (VALCYTE) 450 mg tablet Take 1 tablet by mouth once daily with a meal. 30 tablet 1 9 Active CYCLOSPORINE 1% IN ARTIFICAL TEARS (AHC AMB MIX) Place 1 Drop into right eye 4 times daily. Refrigerate. Expires: . 5 mL 6 06/30/2021 4:30 PM WEED INSPECTOR 2 Active insulin 1 unit/mL ophthalmic solution Place 1 Drop into right eye four times daily. Refrigerate. Protect from light. Bottle expires: . 10 mL 4 03/22/2024 3:12 PM WEED INSPECTOR 4 Active Social History Tobacco Use Types Packs/Day Years Used Date Smoking Tobacco: Never Smokeless Tobacco: Never Alcohol Use Standard Drinks/Week Comments No 0 (1 standard drink = 0.6 oz pur e alcohol) rare Comments No Sex and Gender Information Value Date Recorded Sex Assigned at Not on file Legal Sex Female 6:57 AM WEED INSPECTOR Gender Identity Not on file Sexual Orientation Not on file Obstetrics History Last Filed Vital Signs Vital Sign Reading Time Taken Comments Blood Pressure 123/75 04/18/2019 2:56 PM WEED INSPECTOR Pulse 102 04/18/2019 2:56 PM WEED INSPECTOR Temperature 35.7 C (96.3 F) 04/18/2019 12:56 PM WEED INSPECTOR Respiratory Rate 16 04/18/2019 2:56 PM WEED INSPECTOR Oxygen Saturation 94% 04/18/2019 2:56 PM WEED INSPECTOR Inhaled Oxygen Concentration - - Weight 110.8 kg (244 lb 3 oz) 04/17/2019 12:09 P M WEED INSPECTOR Height 161 cm (5' 3.39) 04/17/2019 12:09 PM WEED INSPECTOR Body Mass Index 42.73 04/17/2019 12:09 PM WEED INSPECTOR Plan of Treatment Health Maintenance Due Date Last Done Comments Tdap 1976 Depression screening for age 12+ 1977 HIV for age 15-65 1980 BMI (ht and wt on same day) for age 18+ 07/22/1983 Hepatitis C screening for ag e 18-79 07/22/1983 Hepatitis B series for 19+ ( 1 of 3 - 19+ 3-dose series) 1984 Tetanus booster 1985 Colonoscopy through age 75 2010 Lipids for age 45-75 2010 Mammogram for age 45-75 2010 Pneumococcal series for age 50+ (1 of 1 - PCV) 07/22/2015 Zoster (shingles) series for age 50+ (1 of 2) 07/22/2015 Pap test for age 21-65 11/09/2023 , 11/08/2020, 11/26/2017, Additional history exists COVID-19 vaccine series ( - 2023- season) 2024 Influenza Vaccine (Season Ended) 2025 Medical Devices Implanted Type Area Gambling Cashier Device Identifier Shelf Expiration Date Model / Serial / Lot [place]nea [place] [employer] - [id number] Implanted:Qty: 1 on 07/05/2017 by Ronni Horton MD at [facility] Right: Eye [facility] Eye Bank 07/09/2017 CORNEA#18- 0287-OD-C / [id number] -C / Allograft 3.5x3.5cm F Amniograft - [id number] Implanted:Qty: 1 on 07/05/2017 by Rogelio Galvan MD at [facility] Right: Eye [employer] 02/02/2019 [id number]# / [id number] / Description:[id number] SERIAL NUMBER Plate Glaucoma Valve Flex Ahmed Silcn - [id number] Implanted:Qty: 1 on 09/30/2018 by Claudia Marcus MD at [facility] Right: Eye New [employer] 08/14/2020 FP7# / [id number] / [id number] Cornea 9.0mm+ Visiongraft W/O Scleral Rim Half - [id number] Implanted:Qty: 1 on 09/30/2018 by Claudia Marcus MD at [facility] Right: Eye [employer] 08/31/2020 [id number] # / [id number] / Description:DIN: [id number] FIN (P): [id number] Cornea [facility] Eye - [id number] Os-C Implanted:Qty: 1 on 04/18/2019 by Amadeo King MD at [facility] Right: Eye [facility] Eye Bank 04/26/2019 CORNEA# / OS-C / Cornea [place] [facility] Eye - [id number] Od-C Implanted:Qty: 1 on 04/18/2019 by Amadeo King MD at [facility] Right: Eye [facility] Eye Bank 04/26/2019 CORNEA# / 0 OD-C / Iol [place] +21 Tecnis [id number] - [id number] Implanted:Qty: 1 on 04/18/2019 by Amadeo King MD at [facility] Right: Eye [employer] 01/26/2024 [id number] 21.0# / [id number] / Allograft 3.5x3.5cm F Amniograft - [id number] Implanted:Qty: 1 on 04/18/2019 by Amadeo King MD at [facility] Right: Eye [employer] 11/07/2020 [id number]# / [id number] / Procedures Procedure Name Priority Date/Time Associated Diagnosis Comments CO DIRECTOR THIN PREP PAP SCREEN IMAGED Routine 11/08/2020 1:30 PM CDT from Last 3 Months or Most Recently Relevant to Health Maintenance Results * CO DIRECTOR THIN PREP PAP SCREEN IMAGED (11/08/2020 1:30 PM CDT) Case Report Gynecologic Cytology Report Case: [id number] Authorizing Provider: Martina Strickland PA-C Collected: 11/08/2020 1330 [facility] Received: 11/11/2020 1612 First Screen: Isabella Garcia Specimen: CO DIRECTOR ThinPrep Vial Screening, Cervical/Vaginal 11/21/2020 6:20 PM CDT [facility] INTERPRETATION/ RESULT NEGATIVE FOR INTRAEPITHELIAL LESION OR MALIGNANCY (NIL) (none) 11/21/2020 6:20 PM CDT [facility] at 1820 CDT SPECIMEN ADEQUACY Satisfactory for evaluation Endocervical component present 11/21/2020 6:20 PM CDT [facility] HPV REQUEST HPV and PAP 11/21/2020 6:20 PM CDT [facility] Date of LMP 11/21/2020 6:20 PM CDT [facility] ENTRAL LAB[facility] Comment:unknown Last Pap Date 11/26/2017 11/21/2020 6:20 PM CDT [facility] Last Pap Result NIL 6:20 PM CDT [facility] EN[facility] Additional Information 11/21/2020 6:20 PM CDT [facility] Comment: Interpreted at [facility], Central Laboratory - [address], [place] [address] Automated Review Successful 11/21/2020 6:20 PM CDT [facility] LABORATORY- ENTRAL LABORATORY Comment:Specimen processed s uccessfully by automated emergency room clerk device, Individual DigitalPrep Imaging System, [employer] ANCILLARY TESTING CO DIRECTOR HPV Ordered, Please see separate report 11/21/2020 6:20 PM CDT [facility] ENTRAL LABORATORY Note The pap test is a [...] and malignant lesions. 11/21/2020 6:20 PM CDT [facility]- ENTRAL LABORATORY Other (Cervical/Vagina l) 11/08/2020 1:30 PM CDT 11/11/2020 4:12 PM CDT us Martina Strickland PA-C PATHOLOGY/CYTOLOGY Final Res ult [facility] [address] [place] [address], from Last 3 Months or Most Recently Relevant to Health Maintenance Insurance [facility] [place] [address] [place] [place] [id number] Advance Directives * Full Code (Latest Code [...] 6:36 AM 07/05/2017 3:03 PM Care Teams Roll Inspector Relationship Specialty Start Date End Date Martina Strickland PA-C [address] [place] [address] PCP - General Emergency Medicine 04/17/19
--- OUTSIDE RECORDS SUMMARY | 2024-09-27 20:26 | XMS_ITS | Encounter Summary ---
Author Organization [facility] Address [address] [place] [address]. [place] [address] Care Team Providers Care Air Hammer Operator Name Role Phone Ailin Zavala MD Unavailable [phone] Martina Strickland PA-C Primary Care Provider Amadeo King MD Unavailable [phone] Joseph Trivedi MD Unavailable [phone] Rene Grant MD Unavailable [phone] Manju Perkins RN Unavailable Unavaila Martine Sr MD Unavailable [phone] Encounter Details Date Type Department Care Team (Late st Contact Info) Description 08/09/2024 [facility] Medical Advice 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 909 [place] [phone] Martine Rios MD 500 [place], [place] [address] 09/29/2024 5:30 PM CDT Ancillary Procedure [facility] 909 [facility] 1st [place] [phone] Martine Rios MD 500 [place], [place] [phone] 10/30/2024 3:00 PM CDT Office [facility] Eye [facility] [place] 8[address] [facility] 9th Dc Clin 9A [place] [phone] Amadeo King MD 420 [facility] 493 [place], [place] [address] 12/05/2024 3:00 PM CDT Office Visit [facility] Eye [facility] 516 [facility] 9th Dc Clin 9A [place] [phone] Emma Deshpande MD 516 [facility] 911 [place], [place] [phone] documented as of this encounter Visit Diagnoses Not on filedocumented in this encounter Care Teams Air Hammer Operator Relationship Specialty Start Date End Date Martina Strickland PA-C PCP - General Physician Electronic Gluing Machine Operator 07/19/19 Ailin Zavala MD Internal Medicine 07/28/11 Amadeo King MD [address] [address] Ophthalmology 12/22/19 Joseph Trivedi MD [facility] [address] [place], [place] [address] Rheumatology 05/21/20 Rene Grant MD 516 [place] [address] Assigned Surgical Provider 09/12/22 Manju Perkins, RN Registered Nurse 05/24/24 Martine Rios MD [address] [place] [address] Assigned Nephrology Provider 07/02/24 documented as of this encounter
--- OUTSIDE RECORDS SUMMARY | 2024-09-27 20:26 | XMS_ITS | Encounter Summary ---
Author Organization [place] Address [address] [place] [address] Care Team Providers Care Supervisor Brake Repair Name Role Phone Ailin Zavala MD Unavailable [phone] Ailin Zavala MD Primary Care Provider Martina [...] Unavailable [phone] Rene Grant MD Unavailable Manju Perkins RN Unavailable Unavaila Martine Sr MD Unavailable Reason for Visit * Reason Onset Date Comments Call Back 03/27/2019 recovery time fo r upcoming surgery Encounter Details Date Type Department Care Team (Late st Contact Info) Description 03/27/[address] 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 She is needing this information for her work. Please call her back to discuss Action Taken: Message routed to: [facility] KNITTER documented in this encounter Plan of Treatment Upcoming Encounters Date Type Department Care Team (Late st Contact Info) Description 09/29/2024 4:05 PM CDT Office Visit [facility] Transplant Clinic 9 [place] [phone] Martine Rios MD 500 [place], [place] [phone] 09/29/2024 5:30 PM CDT Ancillary Procedure [facility] 909 [facility] 1st [place] [phone] Martine Rios MD 500 [place] [address] 10/30/2024 3:00 PM CDT Office [facility] [place] [id number] [facility] 9th Az Clin 9A [place] [phone] Amadeo King MD 420 [facility] 493 [place], [place] [address]6765 12/05/2024 3:00 PM CDT Office [facility] Eye [facility] [place] 521716 [facility] 9th Az Clin 9A [place] [phone] Emma Deshpande MD [address] [place] [address] [address] 911 [place], [place] 490205 documented as of this encounter Visit Diagnoses Not on filedocumented in this encounter Additional Health Concerns Infection Onset Date Last Indicated Resolved Time Rule Out C-difficile 07/11/2024 07/11/2024 025 11:41 PM CUFF KNITTER documented as of this encounter Care Teams Supervisor Brake Repair Relationship Specialty Start Date End Date Ailin Zavala MD PCP - General Internal Medicine 07/28/11 07/18/19 Martina Strickland PA-C PCP - General Physician Plasterer Spot 07/19/19 Ailin Zavala MD Internal Medicine 07/28/11 Amadeo King MD [address] [place] [address] Ophthalmology 12/22/19 Claudia Marcus MD [facility] [address] [place] [address] Assigned Surgical Provider 03/01/20 05/25/20 Amadeo King MD [address] [place] [address] Assigned PCP 04/07/20 06/02/23 Joseph Trivedi MD [facility] [address] [place] [address] Rheumatology 05/21/20 Claudia Marcus MD [facility] [address] [place] [phone] Assigned Surgical Provider 06/30/20 10/19/20 Emma Deshpande MD [address] [place] [address] 150685 Assigned Surgical Provider 05/26/20 06/29/20 Kishan Spain, OD [address] [place] [address] Assigned Surgical Provider 10/20/20 11/23/20 Emma Deshpande MD [address] [place] [address] [id number] Assigned Surgical Provider 11/24/20 12/07/20 Kishan Spain, OD [address] [place] [phone] Assigned Surgical Provider 12/08/20 03/27/22 Emma Deshpande MD [address] [place] [address] 194365 Assigned Surgical Provider 03/28/22 04/03/22 Rene Grant MD [address] [place] [address] 461885 Assigned Surgical Provider 04/04/22 08/21/22 Amadeo Winston MD [address] [place] [address] Assigned Surgical Provider 08/22/22 08/28/22 Amadeo Winston MD [address] [place] [address] Assigned Surgical Provider 09/05/22 09/11/22 Rene Grant MD [address] [place] [address] Assigned Surgical Provider 08/29/22 09/04/22 Rene Grant MD [address] [place] [address] 852515 Assigned Surgical Provider 09/12/22 Manju Perkins RN Registered Nurse 05/24/24 Martine Rios MD [address] [place] [place] [address] [phone] Assigned Nephrology Provider 07/02/24 documented as of this encounter
--- OUTSIDE RECORDS SUMMARY | 2024-09-27 20:26 | XMS_ITS | Encounter Summary ---
Author Organization [place] Address [address] [place] [address]. 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 Gender Identity Female 2019 10:10 AM CDT Sexual Orientation Straight 2019 10 :10 AM CDT documented as of this encounter Plan of Treatment Upcoming Encounters Date Type Department Care Team (Late st Contact Info) Description 09/29/2024 4:05 PM CDT Office Visit [facility] Transplant Clinic 9 [place] [phone] Martine Rios MD 500 [place], [place] 731065 09/29/2024 5:30 PM CDT Ancillary Procedure [facility] 909 [facility] 1st [place] [phone] Martine Rios MD 500 [place], [place] [address] 10/30/2024 3:00 PM CDT Office Visit [facility] Eye [facility] Emergency Department 516 [facility] 9th Wy Clin 9A [place] [phone] Amadeo King MD 420 [facility] 493 [place], [place] [address] 12/05/2024 3:00 PM CDT Office Visit [facility] Eye [facility] Emergency Department 516 [facility] 9th Wy Clin 9A [place] [phone] Emma Deshpande MD 516 [facility] 911 [place], [place] 134065 documented as of this encounter Visit Diagnoses Not on filedocumented in this encounter Care Teams Camp Tender Relationship Specialty Start Date End Date Martina Strickland PA-C PCP - General Physician Slate Picker 07/19/19 Ailin Zavala MD Internal Medicine 07/28/11 Amadeo King MD [address] [address] Ophthalmology 12/22/19 Joseph Trivedi MD [facility] [address] [address] Rheumatology 05/21/20 Rene Grant MD 516 [place] [address] Assigned Surgical Provider 09/12/22 Manju Perkins, JENNIFER Registered Nurse 05/24/24 Martine Rios MD [address] [place] [address] Assigned Nephrology Provider 07/02/24 documented as of this encounter
--- OUTSIDE RECORDS SUMMARY | 2024-09-27 20:26 | XMS_ITS | Encounter Summary ---
Author Organization [place] Address [address] [place] [address] Care Team Providers Care Health Data Administrator Name Role Phone Ailin Zavala MD Unavailable [phone] Martina Strickland PA-C Primary Care Provider Amadeo King MD Unavailable [phone] Joseph Trivedi MD Unavailable [phone] Rene Grant MD Unavailable [phone] Manju Perkins RN Unavailable Unavaila Martine Sr MD Unavailable [phone] Encounter Details Date Type Department Care Team (Late st Contact Info) Description 09/09/2023 [facility] Eye [address] Clin 9A [place] [address] Roseline Zamora Social History Tobacco Use Types Packs/Day Years Used Date Smoking Tobacco: Never Smokeless Tobacco: Never Alcohol Use Standard Drinks/Week Comments No 0 (1 standard drink = 0.6 oz pur e alcohol) PHQ-2 Answer Date Recorded PHQ-2 Score 0 08/30/2023 Adolescent Education Answer Date Record ed Getting School Help Needed Not on file 02/05 Comments No Sex and Gender Information Value Date Recorded Sex Assigned at Female 2019 10:10 AM CDT 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 Gender Identity Female 2019 10:10 AM CDT Sexual Orientation Straight 2019 10 :10 AM CDT documented as of this encounter Plan of Treatment Upcoming Encounters Date Type Department Care Team (Late st Contact Info) Description 09/29/2024 4:05 PM CDT Office Visit [facility] Transplant Clinic 909 [place] [phone] Martine Rios MD 500 [place], [place] 945085 09/29/2024 5:30 PM CDT Ancillary Procedure [facility] 909 [facility] 1st [place] [phone] Martine Rios MD 500 [place], [place] [address]2395 10/30/2024 3:00 PM CDT Office Visit [facility] Eye [facility] 516 [facility] 9th Hi Clin 9A [place] [address] Amadeo King MD 420 [facility] 493 [place], [place] [address] 12/05/2024 3:00 PM CDT Office Visit [facility] Eye [facility] 516 [facility] 9th [facility] 9A [place] [phone] Emma Deshpande MD 516 [facility] [address] 911 [place] [address] documented as of this encounter Visit Diagnoses Not on filedocumented in this encounter Additional Health Concerns Infection Onset Date Last Indicated Resolved Time Rule Out C-difficile 07/11/2024 07/11/2024 025 11:41 PM FURNITURE CLEANER documented as of this encounter Care Teams Health Data Administrator Relationship Specialty Start Date End Date Martina Strickland PA-C PCP - General Physician Highway Worker 07/19/19 Ailin Zavlaa MD Internal Medicine 07/28/11 Amadeo King MD 420 [facility] 493 [place], [place] [phone] Ophthalmology 12/22/19 Joseph Trivedi MD [facility] [address] [address] Rheumatology 05/21/20 Rene Grant MD 6 [place] [address] Assigned Surgical Provider 09/12/22 Manju Perkins, JENNIFER Registered Nurse 05/24/24 Martine Rios MD [address] [place] [address] Assigned Nephrology Provider 07/02/24 documented as of this encounter
--- OUTSIDE RECORDS SUMMARY | 2024-09-27 20:26 | XMS_ITS | Encounter Summary ---
Author Organization [place] Address [address] [place] [address] Care Team Providers Care Corporate Executive Chef Name Role Phone Ailin Zavala MD Unavailable [phone] Ailin Zavala MD Primary Care Provider Martina [...] MD Unavailable Manju Perkins RN Unavailable Unavaila ble Martine Rios MD Unavailable Encounter Details Date Type Department Care Team (Late st Contact Info) Description 10/01/2018 Office Visit [facility] Eye Clinic [place] [id number] [facility] 9 Md Clin 9A [place] [address] Gonzalez Perry MD [facility] [address] [place] [address] Aqueous misdirection, right - Right Eye (Primary Dx); Postoperative eye state - Right Eye; 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 Social History Tobacco Use Types Packs/Day Years Used Date Smoking Tobacco: Never Smokeless Tobacco: Never Alcohol Use Standard Drinks/Week Comments No 0 (1 standard drink = 0.6 oz pur e alcohol) Comments No Sex and Gender Information Value Date Recorded Sex Assigned at Female 2019 10:10 AM CDT 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 Gender Identity Female 2019 10:10 AM CDT Sexual Orientation Straight 2019 10 :10 AM CDT documented as of this encounter Plan of Treatment Upcoming Encounters Date Type Department Care Team (Late st Contact Info) Description 09/29/2024 4:05 PM CDT Office Visit [facility] Transplant Clinic [address] [place] [phone] Martine Rios MD 500 [place], [place] 38[address]65 09/29/2024 5:30 PM CDT Ancillary Procedure [address] 1st [place] [phone] Martine Rios MD 500 [place], [place] [address] 10/30/2024 3:00 PM CDT Office Visit [facility] 516 [facility] 9th Md Clin 9A [place] [address] Amadeo King MD 420 [facility] 493 [place] [address] 12/05/2024 3:00 PM CDT Office Visit [facility] 516 [facility] 9th Md Clin 9A [place] [phone] Emma Deshpande MD 516 [facility] 911 [place], [place] 0[address] documented as of this encounter Visit Diagnoses Diagnosis Aqueous misdirection, 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 - Right Eye Other states following surgery of eye and adnexa 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 Unspecified glaucoma documented in this encounter Additional Health Concerns Infection Onset Date Last Indicated Resolved Time Rule Out C-difficile 07/11/2024 07/11/2024 025 11:41 PM DATA STORAGE SPECIALIST documented as of this encounter Care Teams Corporate Executive Chef Relationship Specialty Start Date End Date Ailin Zavala MD PCP - General Internal Medicine 07/28/11 07/18/19 Martina Strickland PA-C PCP - General Physician Beater Engineer Helper 07/19/19 Ailin Zavala MD MD Internal Medicine 07/28/11 Amadeo King MD 420 [facility] 493 [place], [place] [address] Ophthalmology 12/22/19 Claudia Marcus MD [facility] EYE [facility] [address] [place] [phone] Assigned Surgical Provider 03/01/20 05/25/20 Amadeo King MD 420 [facility] 493 [place], [place] [address]735 Assigned PCP 04/07/20 06/02/23 Joseph Trivedi MD [facility] [address] [facility] 215 [place], [place] [address] Rheumatology 05/21/20 Claudia Marcus MD [facility] EYE [facility] [address] [place] [phone] Assigned Surgical Provider 06/30/20 10/19/20 Emma Deshpande MD 6 [facility] 911 [place], [place] 298785 Assigned Surgical Provider 05/26/20 06/29/20 Kishan Spain, OD 9 [facility] 4th [place] [phone] Assigned Surgical Provider 10/20/20 11/23/20 Emma Deshpande MD 6 [facility] 911 [place], [place] 267755 Assigned Surgical Provider 11/24/20 12/07/20 Kishan Spain, OD 909 [facility] 4th [place] [phone] Assigned Surgical Provider 12/08/20 03/27/22 Emma Deshpande MD [address] [place] [address] 911 [place], [place] 810445 Assigned Surgical Provider 03/28/22 04/03/22 Rene Grant MD [address] [place] [address] 058325 Assigned Surgical Provider 04/04/22 08/21/22 Amadeo Winston MD 420 [place], [place] 652765 Assigned Surgical Provider 08/22/22 08/28/22 Amadeo Winston MD [address] [place] [address] 410505 Assigned Surgical Provider 09/05/22 09/11/22 Rene Grant MD [address] [place] [address] 827285 Assigned Surgical Provider 08/29/22 09/04/22 Rene Grant MD [address] [place] [address] 501625 Assigned Surgical Provider 09/12/22 Manju Perkins, JENNIFER Registered Nurse 05/24/24 Martine Rios MD [address] [place] [address] 907455 Assigned Nephrology Provider 07/02/24 documented as of this encounter
--- OUTSIDE RECORDS SUMMARY | 2024-09-27 20:27 | XMS_ITS | Encounter Summary ---
Author Organization [facility] Address [address] [place] [address]. [place] [address] Care Team Providers Care Windshield Repair Technician Name Role Phone Ailin Zavala MD Unavailable [phone] Martina Strickland PA-C Primary Care Provider Amadeo King MD Unavailable [phone] Joseph Trviedi MD Unavailable [phone] Rene Grant MD Unavailable [phone] Manju Perkins RN Unavailable Unavaila Martine Sr MD Unavailable [phone] Encounter Details Date Type Department Care Team (Late st Contact Info) Description 08/17/2024 Telephone [facility] Transplant Clinic 909 [place] [address] Manju Perkins, RN Social History Tobacco [...] AM CDT 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 Creatinine and tacro slightly up - discussed likely tacro the cause along with dehydration, as Paula is experiencing more diarrhea. Loose stools come and go. After correcting her dose of MMF to 1,000mg BID (as she had inadvertentlybeen taking 500mg BID), she is experiencing looser stools again. Stool studies were negative 07/12. Will review with MD to change MMF to MPA. With diarrhea, will REDUCE tacro to 1mg BID. Bicarb 650mg BID started 08/09. 08/15 level remained low. Will INCREASE bicarb to 1,300mg BID. Reviewed thrush / fluconazole. Will follow up on drug level from week of 08/28, as fluconazole is due to be complete 09/02. Will need to make tacrolimus dose adjustment accordingly. Paula aware. documented in this encounter Plan of Treatment Upcoming Encounters Date Type Department Care Team (Late st Contact Info) Description 09/29/2024 4:05 PM CDT Office Visit [facility] Transplant Clinic 222 [place] [address] Martine Rios MD [address] [place] [address] 376735 09/29/2024 5:30 PM CDT Ancillary Procedure [facility] 909 [facility] 1st [place] [phone] Martine Rios MD [address] [place] [address] 10/30/2024 3:00 PM CDT Office Visit [facility] Eye [place] [phone] [facility] Emergency Department 9[facility] 9A [place] [address] Amadeo King MD [address] [place] [address] 939145 12/05/2024 3:00 PM CDT Office Visit [facility] Eye [address] [phone] Emma Deshpande MD [address] [place] [address] 911 [place], [place] 692385 documented as of this encounter Visit Diagnoses Diagnosis Immunosuppression Unspecified disorder of immune mechanism Pseudophakia of right eye Lens replaced by other means Need for pneumocystis prophylaxis Need for other prophylactic chemotherapy Immunosuppressed status Unspecified disorder of immune mechanism Fungal infection Other and unspecified mycoses Metabolic acidosis Acidosis documented in this encounter Care Teams Windshield Repair Technician Relationship Specialty Start Date End Date Martina Strickland PA-C PCP - General Physician Open Claims Representative 07/19/19 Ailin Zavala MD Internal Medicine 07/28/11 Amadeo King MD [address] [place] [address] 646985 Ophthalmology 12/22/19 Joseph Trivedi MD [facility] [address] 023065 Rheumatology 05/21/20 Rene Grant MD [address] [place] [address] Assigned Surgical Provider 09/12/22 Manju Perkins, JENNIFER Registered Nurse 05/24/24 Martine Rios MD [address] [place] [address] Assigned Nephrology Provider 07/02/24 documented as of this encounter
--- OUTSIDE RECORDS SUMMARY | 2024-09-27 20:27 | XMS_ITS | Encounter Summary ---
Author Organization [place] Address [address] [place] [address]. [place] [address] Care Team Providers Care Cloth Shrinking Supervisor Name Role Phone Ailin Zavala MD Unavailable [phone] Martina Strickland PA-C Primary Care Provider Amadeo King MD Unavailable [phone] Joseph Trivedi MD Unavailable [phone] [facility] MD Unavailable [phone] Manju Perkins RN Unavailable Unavaila Martine Sr MD Unavailable [phone] Encounter Details Date Type Department Care Team (Late st Contact Info) Description 08/18/2024 MyC Medical Advice Initial Department Manju Perkins, JENNIFER Social History Tobacco Use Types Packs/Day Years [...] AM CDT 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 Gender Identity Female 2019 10:10 AM CDT Sexual Orientation Straight 2019 10 :10 AM CDT documented as of this encounter Plan of Treatment Upcoming Encounters Date Type Department Care Team (Late st Contact Info) Description 09/29/2024 4:05 PM CDT Office Visit [facility] Transplant Clinic 909 [place] [phone] Martine Rios MD 500 [place], [place] [address]175 09/29/2024 5:30 PM CDT Ancillary Procedure [facility] 909 [facility] 1st [place] [phone] Martine Rios MD 500 [place], [place] 272085 10/30/2024 3:00 PM CDT Office Visit [facility] Eye [facility] 516 [facility] 9th [facility] 9A [place] [phone] Amadeo King MD 420 [facility] 493 [place], [place] [address]485 12/05/2024 3:00 PM CDT Office Visit [facility] Eye [facility] 516 [facility] 9th [facility] 9A [place] [phone] Emma Deshpande MD 516 [facility] 911 [place], [place] 209335 documented as of this encounter Visit Diagnoses Not on filedocumented in this encounter Care Teams Cloth Shrinking Supervisor Relationship Specialty Start Date End Date Martina Strickland PA-C PCP - General Physician Fine Grade Bulldozer Operator 07/19/19 Ailin Zavala MD Internal Medicine 07/28/11 Amadeo King MD [address] [place] [address] 230685 Ophthalmology 12/22/19 Joseph Trivedi MD [facility] [address] 734845 Rheumatology 05/21/20 Rene Grant MD [address] [place] [address] [id number] Assigned Surgical Provider 09/12/22 Manju Perkins, JENNIFER Registered Nurse 05/24/24 Martine Rios MD [address] [place] [address] [phone] Assigned Nephrology Provider 07/02/24 documented as of this encounter
--- OUTSIDE RECORDS SUMMARY | 2024-09-27 20:27 | XMS_ITS | Encounter Summary ---
Author Organization [facility] Address [address] [place] [address] Care Team Providers Care Cement Mason Helper Name Role Phone Ailin Zavala MD Unavailable [phone] Martina Strickland PA-C Primary Care Provider Amadeo King MD Unavailable [phone] Joseph Trivedi MD Unavailable [phone] [facility] Unavailable [phone] Manju Perkins RN Unavailable Unavaila Martine Sr MD Unavailable [phone] Encounter Details Date Type Department Care Team (Late st Contact Info) Description 06/09/2024 MyC Medical Advice Initial Department Manju Perkins, JENNIFER Social History Tobacco Use Types Packs/Day Years Used Date Smoking Tobacco: Never Smokeless Tobacco: Never Alcohol Use Standard Drinks/Week Comments No 0 (1 standard drink = 0.6 oz pur e alcohol) PHQ-2 Answer Date Recorded PHQ-2 Score 0 05/15/2024 Adolescent Education Answer Date Record ed Getting School Help Needed Not on file 02/05 Comments No Sex and Gender Information Value Date Recorded Sex Assigned at Female 2019 10:10 AM CDT 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:59 AM 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 BULB 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 Gender Identity Female 2019 10:10 AM CDT Sexual Orientation Straight 2019 10 :10 AM CDT documented as of this encounter Plan of Treatment Upcoming Encounters Date Type Department Care Team (Late st Contact Info) Description 09/29/2024 4:05 PM CDT Office Visit [facility] Transplant Clinic 909 [place] [phone] Martine Rios MD 500 [place], [place] 683905 09/29/2024 5:30 PM CDT Ancillary Procedure [facility] 909 [facility] 1st [place] [phone] Martine Rios MD 500 [place], [place] 320515 10/30/2024 3:00 PM CDT Office Visit [facility] Eye [facility] 516 [facility]th [facility] 9A [place] [phone] Amadeo King MD 420 [facility] 493 [place], [place] 5[address]85 12/05/2024 3:00 PM CDT Office Visit [facility] Eye [place] 562806 [facility] 9[facility] 9A [place] [phone] Emma Deshpande MD 516 [facility] [address] 911 [place], [place] 410785 documented as of this encounter Visit Diagnoses Not on filedocumented in this encounter Additional Health Concerns Infection Onset Date Last Indicated Resolved Time Rule Out C-difficile 07/11/2024 07/11/2024 025 11:41 PM GLASS BULB SILVERER documented as of this encounter Care Teams Cement Mason Helper Relationship Specialty Start Date End Date Martina Strickland PA-C PCP - General Physician Geometry Teacher 07/19/19 Ailin Zavala MD Internal Medicine 07/28/11 Amadeo King MD [address] [phone] Ophthalmology 12/22/19 Joseph Trivedi MD [facility] [address] 215 [place], [place] 445705 Rheumatology 05/21/20 Rene Grant MD 516 [place], [place] [phone] Assigned Surgical Provider 09/12/22 Manju Perkins RN Registered Nurse 05/24/24 Martine Rios MD [address] [place] [address] Assigned Nephrology Provider 07/02/24 documented as of this encounter
--- OUTSIDE RECORDS SUMMARY | 2024-09-27 20:27 | XMS_ITS | Encounter Summary ---
Author Organization [facility] Address [address] [place] [address]382 Care Team Providers Care Lamp Shade Maker Name Role Phone Ailin Zavala MD Unavailable [phone] Martina Strickland PA-C Primary Care Provider Amadeo King MD Unavailable [phone] Joseph Trivedi MD Unavailable [phone] Rene Grant MD Unavailable [phone] Manju Perkins RN Unavailable Unavaila Martine Sr MD Unavailable [phone] Encounter Details Date Type Department Care Team (Late st Contact Info) Description 05/19/2024 [facility] Trans[facility] 9 [place] [address] Manju Perkins, RN Social History [...] AM CDT 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:59 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 Gender Identity Female 2019 10:10 AM CDT Sexual Orientation Straight 2019 10 :10 AM CDT documented as of this encounter Plan of Treatment Upcoming Encounters Date Type Department Care Team (Late st Contact Info) Description 09/29/2024 4:05 PM CDT Office Visit [facility] Transplant Clinic 909 [place] [phone] Martine Rois MD 500 [place], [place] 692305 09/29/2024 5:30 PM CDT Ancillary Procedure [facility] 909 [facility] 1st [place] [phone] Martine Rios MD 500 [place], [place] 026575 10/30/2024 3:00 PM CDT Office Visit [facility] Eye [facility] 516 [facility] 9th Sc Clin 9A [place] [phone] Amadeo King MD 420 [facility] 493 [place], [place] [phone] 12/05/2024 3:00 PM CDT Office Visit [facility] Eye [facility] 516 [facility] 9th [facility] 9A [place] [phone] Emma Deshpande MD 516 [facility] [address] 911 [place], [place] 160295 documented as of this encounter Visit Diagnoses Not on filedocumented in this encounter Additional Health Concerns Infection Onset Date Last Indicated Resolved Time Rule Out C-difficile 07/11/2024 07/11/2024 025 11:41 PM WOOD CREW SUPERVISOR documented as of this encounter Care Teams Lamp Shade Maker Relationship Specialty Start Date End Date Martina Strickland PA-C PCP - General Physician Unattended Ground Sensor Specialist 07/19/19 Ailin Zavala MD Internal Medicine 07/28/11 Amadeo King MD [address] [address] Ophthalmology 12/22/19 Joseph Trivedi MD [facility] [address] 215 [place] [address] Rheumatology 05/21/20 Rene Grant MD 516 [place] [address] Assigned Surgical Provider 09/12/22 Manju Perkins, JENNIFER Registered Nurse 05/24/24 Martine Riso MD [address] [place] [address] Assigned Nephrology Provider 07/02/24 documented as of this encounter
--- OUTSIDE RECORDS SUMMARY | 2024-09-27 20:27 | XMS_ITS | Encounter Summary ---
Author Organization [facility] Address [address] [place] [address] Care Team Providers Care Impregnator And Drier Helper Name Role Phone Sally Ailin Hebert MD Unavailable [phone] Martina Strickland PA-C Primary Care Provider Amadeo [...] [phone] Manju Perkins RN Unavailable Unavaila Martine Sr MD Unavailable Reason for Visit * Reason Onset Date Comments Call Back 10/09/2019 Appt tm at 11:30 Encounter Details Date Type Department Care Team (Late st Contact Info) Description 10/09/2019 Telephone [facility] Ophthalmology 909 [facility] 4th [place] [address] Amadeo King MD 420 [facility] [address] [place] [address] Call Back (Appt tm at [...] AM CDT 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:59 AM 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 [...] Office Visit [facility] Transplant Clinic [address] [place] [phone] Martine Rios MD 500 [place], [place] 314265 09/29/2024 5:30 PM CDT Ancillary Procedure [facility] 909 [facility] 1st [place] [phone] Martine Rios MD 500 [place], [place] 85[address]85 10/30/2024 3:00 PM CDT Office Visit [facility] Eye [facility] - [place] 877056 [facility] 9th [facility] 9A [place] [address] Amadeo King MD [address] [place] [address] 12/05/2024 3:00 PM CDT Office Visit [facility] Eye [address] 9th Fl Clin 9A [place] [address] Emma Deshpande MD 516 [facility] [address] [place], [place] [address] documented as of this encounter Visit Diagnoses Not on filedocumented in this encounter Additional Health Concerns Infection Onset Date Last Indicated Resolved Time Rule Out C-difficile 07/11/2024 07/11/2024 025 11:41 PM MOLASSES COLORING OPERATOR documented as of this encounter Care Teams Impregnator And Drier Helper Relationship Specialty Start Date End Date Martina Strickland PA-C PCP - General Physician Flight Engineer Manager 07/19/19 Ailin Zavala MD Internal Medicine 07/28/11 Amadeo King MD 420 [facility] [address] [place] [address] Ophthalmology 12/22/19 Claudia Marcus MD [facility] [address] [place] [address] Assigned Surgical Provider 03/01/20 05/25/20 Amadeo King MD 420 [facility] [address] [place] [address] Assigned PCP 04/07/20 06/02/23 Joseph Trivedi MD [facility] [address] [facility] 215 [place] [address] Rheumatology 05/21/20 Claudia Marcus MD [facility] [address] [place] [phone] Assigned Surgical Provider 06/30/20 10/19/20 Emma Deshpande MD [address] [place] [address] [phone] Assigned Surgical Provider 05/26/20 06/29/20 Kishan Spain, OD [address] [place] [address] Assigned Surgical Provider 10/20/20 11/23/20 Emma Deshpande MD [address] [place] [address] [phone] Assigned Surgical Provider 11/24/20 12/07/20 Kishan Spain, OD [address] [place] [phone] Assigned Surgical Provider 12/08/20 03/27/22 Emma Deshpande MD [address] [place] [address] [phone] Assigned Surgical Provider 03/28/22 04/03/22 Rene Grant MD [address] [place] [address] [phone] Assigned Surgical Provider 04/04/22 08/21/22 Amadeo Winston MD [address] [place] [address] 893172 Assigned Surgical Provider 08/22/22 08/28/22 Amadeo Winston MD [address] [place] [address] 32544 Assigned Surgical Provider 09/05/22 09/11/22 Rene Grant MD [address] [place] [address] Assigned Surgical Provider 08/29/22 09/04/22 Rene Grant MD [address] [place] [address] 36557 Assigned Surgical Provider 09/12/22 Manju Perkins RN Registered Nurse 05/24/24 Martine Rios MD [address] [place] [address] [phone] Assigned Nephrology Provider 07/02/24 documented as of this encounter
--- OUTSIDE RECORDS SUMMARY | 2024-09-27 20:27 | XMS_ITS | Encounter Summary ---
Author Organization [facility] Address [address] [place] [address] Care Team Providers Care Drilling Field Specialist Name Role Phone Sally Ailin Hebert MD Unavailable [phone] Martina Strickland PA-C Primary Care Provider Amadeo [...] Rene Grant MD Unavailable [phone] Rene Grnat MD Unavailable [phone] Manju Perkins RN Unavailable Unavaila Martine Sr MD Unavailable Reason for Visit * Reason Onset Date Comments Patient Request for Note/Letter 07/25/2019 Pt needs the Exact date for return to work send back in Mychart Please Encounter Details Date Type Department Care Team (Late st Contact Info) Description 07/25/2019 Telephone [facility] 516 [facility] 9th Dc Clin 9A [place] [address] Amadeo King MD 420 [facility] 493 [place] [address] Patient Request for Note/Letter (Pt needs the Exact date for return to work send back in Mychart Please) Social History Tobacco Use Types Packs/Day [...] AM CDT 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 Call Center Phone Message May a detailed message be left on voicemail: yes Reason for Call: Form or Letter Type or form/letter needing completion:Pt needs he exact date to retrun back to work Please send back in [employer] Provider: Dr King Date form needed: JOSE MANUEL Once completed: Send back in [employer] Action Taken: Message routed to: [facility] eye Travel Screening: Not Applicable documented in this encounter Plan of Treatment Upcoming Encounters Date Type Department Care Team (Late st Contact Info) Description 09/29/2024 4:05 PM CDT Office Visit [facility] Transplant Clinic [address] [place] [phone] Martine Rios MD 500 [place], [place] 981565 09/29/2024 5:30 PM CDT Ancillary Procedure [facility] 909 [facility] 1st [place] [phone] Martine Rios MD 500 [place], [place] 986405 10/30/2024 3:00 PM CDT Office Visit [facility] Eye Clinic - [place] 185186 [facility] 9[facility] 9A [place] [phone] Amadeo King MD [address] [place] [address] 704585 12/05/2024 3:00 PM CDT Office Visit [facility] Eye [facility] [address] 9[facility] 9A [place] [phone] Emma Deshpande MD 516 [facility] 911 [place], [place] 515875 documented as of this encounter Visit Diagnoses Not on filedocumented in this encounter Additional Health Concerns Infection Onset Date Last Indicated Resolved Time Rule Out C-difficile 07/11/2024 07/11/2024 025 11:41 PM MOBILE WEB APPLICATION DEVELOPER documented as of this encounter Care Teams Drilling Field Specialist Relationship Specialty Start Date End Date Martina Strickland PA-C PCP - General Physician Grinding Room Inspector 07/19/19 Ailin Zavala MD Internal Medicine 07/28/11 Amadeo King MD [address] [place] [address] Ophthalmology 12/22/19 Claudia Marcus MD [facility] EYE [address] [place] [address] Assigned Surgical Provider 03/01/20 05/25/20 Amadeo King MD [address] [place] [address] Assigned PCP 04/07/20 06/02/23 Joseph Trivedi MD [facility] [address] [facility] 215 [place] [address] Rheumatology 05/21/20 Claudia Marcus MD [facility] EYE [facility] [address] [place] [address] Assigned Surgical Provider 06/30/20 10/19/20 Emma Deshpande MD [address] [place] [address] Assigned Surgical Provider 05/26/20 06/29/20 Kishan Spain, OD [address] [place] [phone] Assigned Surgical Provider 10/20/20 11/23/20 Emma Deshpande MD [address] [place] [address] 820335 Assigned Surgical Provider 11/24/20 12/07/20 Kishan Spain, OD [address] [place] [phone] Assigned Surgical Provider 12/08/20 03/27/22 Emma Deshpande MD [address] [place] [address] 726305 Assigned Surgical Provider 03/28/22 04/03/22 Rene Grant MD [address] [place] [address] [phone] Assigned Surgical Provider 04/04/22 08/21/22 Amadeo Winston MD [address] [place] [address] 085865 Assigned Surgical Provider 08/22/22 08/28/22 Amadeo Winston MD [address] [place] [address] [phone] Assigned Surgical Provider 09/05/22 09/11/22 Rene Grant MD [address] [place] [address] 149305 Assigned Surgical Provider 08/29/22 09/04/22 Rene Grant MD [address] [place] [address] [phone] Assigned Surgical Provider 09/12/22 Manju Perkins RN Registered Nurse 05/24/24 Martine Rios MD [address] [place] [address] [phone] Assigned Nephrology Provider 07/02/24 documented as of this encounter
--- OUTSIDE RECORDS SUMMARY | 2024-09-27 20:27 | XMS_ITS | Encounter Summary ---
Author Organization [facility] Address [address] [place] [address] Care Team Providers Care Lead Auditor Name Role Phone Ailin Zavala MD Unavailable [phone] Martina Strickland PA-C Primary Care Provider Amadeo King MD Unavailable [phone] Joseph Trivedi MD Unavailable [phone] Rene Grant MD Unavailable [phone] Manju Perkins RN Unavailable Unavaila Martine Sr MD Unavailable [phone] Encounter Details Date Type Department Care Team (Late st Contact Info) Description 05/24/2024 MyC Medical Advice [facility] Transplant Clinic [address] [place] [phone] Manju Perkins, RN Social History Tobacco [...] AM CDT 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:59 AM 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 Gender Identity Female 2019 10:10 AM CDT Sexual Orientation Straight 2019 10 :10 AM CDT documented as of this encounter Plan of Treatment Upcoming Encounters Date Type Department Care Team (Late st Contact Info) Description 09/29/2024 4:05 PM CDT Office Visit [facility] Transplant Clinic 909 [place] [phone] Martine Rios MD 500 [place], [place] 139495 09/29/2024 5:30 PM CDT Ancillary Procedure [facility] 909 [facility] 1st [place] [phone] Martine Rios MD 500 [place], [place] 9[address]105 10/30/2024 3:00 PM CDT Office Visit [facility] Eye [facility] 516 [facility] 9th Sd Clin 9A [place] [phone] Amadeo King MD 420 [facility] 493 [place], [place] [phone] 12/05/2024 3:00 PM CDT Office Visit [facility] Eye [facility] 516 [facility] 9th [facility] 9A [place] [phone] Emma Deshpande MD 516 [facility] [address] 911 [place], [place] 176745 documented as of this encounter Visit Diagnoses Not on filedocumented in this encounter Additional Health Concerns Infection Onset Date Last Indicated Resolved Time Rule Out C-difficile 07/11/2024 07/11/2024 025 11:41 PM 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 documented as of this encounter Care Teams Lead Auditor Relationship Specialty Start Date End Date Martina Strickland PA-C PCP - General Physician Test Engineer Nuclear Equipment 07/19/19 Ailin Zavala MD Internal Medicine 07/28/11 Amadeo King MD [address] [address] Ophthalmology 12/22/19 Joseph Trivedi MD [facility] [address] [place] [address] Rheumatology 05/21/20 Rene Grant MD 516 [place] [address] Assigned Surgical Provider 09/12/22 Manju Perkins, JENNIFER Registered Nurse 05/24/24 Martine Rios MD [address] [place] [address] Assigned Nephrology Provider 07/02/24 documented as of this encounter
--- OUTSIDE RECORDS SUMMARY | 2024-09-27 20:27 | XMS_ITS | Clinical Summary ---
Author Organization [facility] Address [address] [place] [address] Care Team Providers Care Mapping Editor Name Role Phone Ailin Zavala MD Unavailable [phone] Martina Strickland PA-C Primary Care Provider Amadeo King MD Unavailable [phone] Joseph Trivedi MD Unavailable [phone] Rene Grant MD Unavailable [phone] Manju Perkins RN Unavailable Unavaila Martine Sr MD Unavailable [phone] Allergies Active Allergy Reactions Criticality Noted Date Comments Lidocaine Other (See Comments) 07/22/2011 can Other reaction(s): Get the shakes Medications metFORMIN (GLUCOPHAGE-XR) 500 MG 24 hr tablet Take 1,000 mg by mouth 2 times daily Active levothyroxine (SYNTHROID/LEVO THROID) 125 MCG tablet Take 125 mcg by mouth daily Active tacrolimus (PROTOPIC) 0.1 % external ointmentIndicat ions:Post corneal transplant Apply topically daily. 30 g 4 01/17/20 24 Active sulfamethoxazol e-trimethoprim (BACTRIM) 400-80 MG tabletIndicatio ns:Limbal stem cell deficiency,Immu nosuppressed status Take 1 tablet by mouth Every Mon, Wed, Fri Morning. Take every , , Wednesday AM. Start 06/06/2024, continue through 09/04/2024. 54 tablet 06/07/19 25 Active valGANciclovir (VALCYTE) 450 MG tabletIndicatio ns:Limbal stem cell deficiency,Immu nosuppressed status Take 2 tablets (900 mg) by mouth daily. Start 06/06/2024, continue through 01/02/2028. 60 tablet 6 06/07/19 25 Active predniSONE (DELTASONE) 10 MG tabletIndicatio ns:Limbal stem cell deficiency,Immu nosuppressed status Take 6 tablets (60 mg) by mouth daily. Start 60mg daily 06/27/2024. Wean per Dr. King. 168 tablet 3 06/07/19 25 Active Additional Information Patient taking differently:60 mg Oral DAILY,Currently taking 30mg a day and tapering on Wednesday, Reported on 08/30/2024 cycloSPORINE (RESTASIS) 0.05 % ophthalmic emulsionIndicat ions:Chronicall y dry eyes, right Place 1 drop into both eyes 2 times daily. 60 each 07/05/19 25 Active ofloxacin (OCUFLOX) 0.3 % ophthalmic solutionIndicat ions:Persistent epithelial defect of right cornea,Corneal ulcer of right eye Place 1-2 drops into the right eye 4 times daily. 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 Profile Rx: patient will contact pharmacy when needed 60 capsule 08/19/19 25 Active sodium bicarbonate 650 MG tabletIndicatio ns:Metabolic acidosis Take 2 tablets (1,300 mg) by mouth 2 times daily. 120 tablet 08/19/19 25 Active mycophenolic acid (GENERIC EQUIVALENT) 180 MG EC tabletIndicatio ns:Limbal stem cell deficiency,Immu nosuppressed status Take 4 tablets (720 mg) by mouth 2 times daily. 240 tablet 08/24/19 25 Active nystatin (MYCOSTATIN) 944370 UNIT/ML suspensionIndic ations:Thrush Take 5 mLs (500,000 Units) by mouth 4 times daily. 280 mL 08/25/19 25 Active acetaZOLAMIDE (DIAMOX SEQUEL) 500 MG 12 hr capsuleIndicati ons:Ocular hypertension, right eye TAKE 1 CAPSULE(500 MG) BY MOUTH TWICE DAILY 60 capsule 08/30/19 25 Active tacrolimus (GENERIC EQUIVALENT) 1 MG capsuleIndicati ons:Immunosuppr essed status,Fungal infection Take 2 capsules (2 mg) by mouth 2 times daily. Total dose = 2 mg twice daily. Profile Rx: patient will contact pharmacy when needed 120 capsule 11 09/09/19 25 Active furosemide (LASIX) 20 MG tabletIndicatio ns:Fluid retention in legs Take 1 tablet (20 mg) by mouth daily. 7 tablet 09/19/19 25 Active acetaZOLAMIDE (DIAMOX SEQUEL) 500 MG 12 hr capsuleIndicati ons:Ocular hypertension, right eye Take 1 capsule (500 mg) by mouth 2 times daily. 60 capsule 08/03/19 25 025 Discontinued fluconazole (DIFLUCAN) 100 MG tabletIndicatio ns:Immunosuppre ssion,Immunosup pressed status,Need for pneumocystis prophylaxis,Fun gal infection Take 1 tablet (100 mg) by mouth daily. 30 tablet 08/04/19 25 025 tacrolimus (GENERIC EQUIVALENT) 1 MG capsuleIndicati ons:Immunosuppr essed status,Fungal infection Take 1 capsule (1 mg) by mouth 2 times daily. Total dose = 1 mg twice daily. 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 Pseudophakia of right eye 09/28/2018 CARDIOVASCULAR SCREENING; LDL GOAL LESS THAN 160 07/28/2011 Hypothyroidism 07/28/2011 Encounters Date Type Department Care Team Description 09/27/2024 3:20 PM [facility] [address] [place] [address] Limbal stem cell deficiency; Immunosuppressed status; Limbal stem cell deficiency, unspecified laterality; 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; Other specified postprocedural states 09/27/2024 Travel 09/27/2024 Orders Only [facility] [address] [place] [phone] Gifty Durham RN Edema (Primary Dx) 09/27/2024 Telephone [facility] [address] [phone] Manju Perkins RN 09/25/2024 3:00 PM CDT Office Visit [facility] - [address] [phone] Amadeo King MD 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); Post corneal transplant 09/25/2024 Travel 09/22/2024 Travel 09/20/2024 5:10 PM CDT Lab [facility] [address] [place] [phone] Limbal stem cell deficiency; Immunosuppressed status; Limbal stem cell deficiency, unspecified laterality; [facility] use of drug; Other specified postprocedural states 09/20/2024 Travel 09/18/2024 Telephone [facility] [address] [place] [phone] Manju Perkins RN 09/14/2024 Results Follow-Up [facility] [address] [phone] Manju Perkins RN Subj: Message about your results 09/13/2024 4:40 PM CDT Lab [facility] [address] [place] [phone] Limbal stem cell deficiency; Immunosuppressed status; Limbal stem cell deficiency, unspecified laterality; 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; Other specified postprocedural states 09/13/2024 Travel 09/12/2024 MyC Medical Advice Initial Department Manju Perkins RN 09/08/2024 Orders Only [facility] [address] [place] [phone] Manju Perkins RN Immunosuppressed status; Fungal infection 09/06/2024 MyC Medical Advice [facility] [address] [place] [phone] Manju Perkins RN 09/05/2024 12:20 PM CDT Lab [facility] [address] [place] [phone] Limbal stem cell deficiency; Immunosuppressed status; Limbal stem cell deficiency, unspecified laterality; [employer] use of drug; Other specified postprocedural states 09/05/2024 MyC Medical Advice Initial Department Manju Perkins RN 09/05/2024 Travel 08/30/2024 10:00 AM CDT Office Visit [facility] [address] [place] [address] Amadeo King MD 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); Post corneal transplant 08/30/2024 MyC Medical Advice [facility] [address] [place] [phone] Manju Perkins RN 08/30/2024 MyC Medical Advice Initial Department Manju Perkins RN 08/30/2024 Travel 08/29/2024 4:45 PM CDT Lab [facility] [address] [place] [phone] Limbal stem cell deficiency; Immunosuppressed status; Limbal stem cell deficiency, unspecified laterality; 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; Other specified postprocedural states 08/29/2024 Travel 08/29/2024 Refill [facility] [address] [place] [phone] Amadeo King MD Medication Refill 08/24/2024 Orders Only [facility] [address] [place] [address] [phone] Manju Perkins RN Thrush (Primary Dx) 08/23/2024 Telephone [facility] [address] [place] [phone] Manju Perkins, JENNIFER 08/22/2024 5:10 PM CDT Lab [facility] [address] [place] [phone] Limbal stem cell deficiency 08/22/2024 Travel 08/18/2024 MyC Medical Advice [facility] [address] [place] [phone] Manju Perkins RN 08/18/2024 MyC Medical Advice Initial Department Manju Perkins RN 08/17/2024 Telephone [facility] [address] [phone] Manju Perkins, JENNIFER 08/15/2024 5:25 PM CDT Lab [facility] [address] [place] [phone] Limbal stem cell deficiency; Immunosuppressed status; Limbal stem cell deficiency, unspecified laterality; [employer]CI use of drug; Other specified postprocedural states 08/15/2024 Travel 08/10/2024 Orders Only [facility] [address] [place] [phone] Manju Perkins, JENNIFER Limbal stem cell deficiency (Primary Dx) 08/09/2024 MyC Medical Advice [facility] [address] [place] [phone] Manju Perkins, JENNIFER 08/09/2024 Telephone [facility] [address] [place] [phone] Manju Perkins RN 08/07/2024 5:20 PM CDT Lab [facility] [address] [place] [phone] Limbal stem cell deficiency; Immunosuppressed status; Limbal stem cell deficiency, unspecified laterality; [employer]CI use of drug; Other specified postprocedural states; Immunosuppression 08/07/2024 Travel 08/07/2024 MyC Medical Advice [facility] [address] [place] [phone] Manju Perkins RN 08/04/2024 Travel 08/03/2024 3:35 PM CDT Office Visit [facility] [address] [place] [phone] Martine Rios MD Immunosuppression (Primary Dx); Immunosuppressed status; Hypothyroidism, unspecified type; Pseudophakia of right eye; 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; Need for pneumocystis prophylaxis; Fungal infection; Post corneal transplant; Corneal transplant failure, right eye; 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 08/02/2024 5:15 PM CDT Lab [place] [address] [place] [phone] Limbal stem cell deficiency; Immunosuppressed status; Limbal stem cell deficiency, unspecified laterality; [employer]CI use of drug; Other specified postprocedural states 08/02/2024 8:00 AM CDT Office Visit [facility] [address] [phone] Amadeo King MD Ocular hypertension, right eye; 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 08/02/2024 Travel 08/01/2024 Travel 07/29/2024 11:45 AM CDT Lab [facility] [address] [place] [phone] Limbal stem cell deficiency; Immunosuppressed status; Limbal stem cell deficiency, unspecified laterality; FCI use of drug; Other specified postprocedural states 07/29/2024 Travel 07/27/2024 MyC Medical Advice [facility] [address] [place] [phone] Manju Perkins RN 07/26/2024 5:15 PM CDT Lab [facility] [address] [place] [address] Limbal stem cell deficiency; Immunosuppressed status; Limbal stem cell deficiency, unspecified laterality; FCI use of drug; Other specified postprocedural states 07/26/2024 Travel 07/26/2024 MyC Medical Advice [facility] [address] [place] [phone] Manju Perkins RN 07/17/2024 5:25 PM CDT Lab [facility] [address] [place] [address] Limbal stem cell deficiency; Immunosuppressed status; Limbal stem cell deficiency, unspecified laterality; FCI use of drug; Other specified postprocedural states 07/17/2024 10:15 AM CDT Office Visit [facility] [address] [phone] Amadeo King MD Ocular hypertension, right eye (Primary Dx); Post corneal transplant; 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 07/17/2024 Travel 07/14/2024 Travel 07/13/2024 4:40 PM 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 Lab [facility] [address] [place] [address] Limbal stem cell deficiency; Immunosuppressed status; Limbal stem cell deficiency, unspecified laterality; 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; Other specified postprocedural states 07/12/2024 11:00 AM 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 Office Visit [facility] [address] [place] [phone] Amadeo King MD Ocular hypertension, right eye (Primary Dx); Postoperative eye state; Post corneal transplant 07/12/2024 Travel 07/11/2024 MyC Medical Advice [facility] [address] [place] [phone] Manju Perkins RN Limbal stem cell deficiency; Immunosuppressed status 07/11/2024 Telephone [facility] [address] [place] [phone] Manju Perkins RN 07/11/2024 Travel 07/10/2024 5:20 PM 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 Lab [facility] [address] [place] [phone] Limbal stem cell deficiency; Immunosuppressed status; Limbal stem cell deficiency, unspecified laterality; 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; Other specified postprocedural states; Diarrhea 07/10/2024 Travel 07/07/2024 Orders Only [facility] [address] [place] [phone] Manju Perkins RN Limbal stem cell deficiency; Immunosuppressed status 07/07/2024 MyC Medical Advice [facility] [address] [place] [phone] Manju Perkins RN Diarrhea (Primary Dx) 07/06/2024 5:15 PM 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 Lab [facility] [address] [place] [address] Limbal stem cell deficiency; Immunosuppressed status; Limbal stem cell deficiency, unspecified laterality; 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; Persistent epithelial defect of right cornea; Corneal ulcer of right eye; Post corneal transplant; Corneal transplant rejection, right eye 07/04/2024 12:11 PM 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 Anesthesia Event [address] [phone] Saturnino Robertson MD Peper, Angela, DO 07/04/2024 11:30 AM 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 - 07/04/2024 2:55 PM 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 Surgery [address] [phone] Amadeo King MD KERATOPLASTY, PENETRATING; KERATOLIMBAL ALLOGRAFT, AMNIOTIC MEMBRANE TRANSPLANT, SUTURE TARSORRHAPHY 07/04/2024 9:54 AM 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 - 07/04/2024 11:59 PM 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 Hospital Encounter [address] [phone] Amadeo King MD Discharge Disposition: Home or Self Care 07/04/2024 Travel 07/03/2024 4:35 PM 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 Lab [facility] [address] [place] [address] Limbal stem cell deficiency; Immunosuppressed status; Limbal stem cell deficiency, unspecified laterality; [facility]CI use of drug; Other specified postprocedural states 07/03/2024 3:00 PM 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 Office Visit [facility] [address] [address] [place] [address] Amadeo King MD 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); 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; Corneal transplant failure, right eye; Corneal ulcer of right eye 07/03/2024 MyC Medical Advice [facility] [address] [place] [phone] Manju Perkins RN 07/03/2024 Travel 07/03/2024 Orders Only [facility] [address] [place] [phone] Manju Perkins RN 07/03/2024 Telephone [facility] [address] [place] [phone] Manju Perkins RN 07/02/2024 Orders Only [facility] Service Line [address] [place] [phone] Carlos Pickett MD 07/01/2024 Travel 06/30/2024 5:15 PM 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 Lab [facility] [address] [place] [phone] Limbal stem cell deficiency; Immunosuppressed status; Limbal stem cell deficiency, unspecified laterality; 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; Other specified postprocedural states 06/30/2024 Travel 06/30/2024 Orders Only [facility] [address] [phone] Amadeo King MD Transplant rejection (Primary Dx); 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 from Last 3 Months Family History Medical [...] Date Smoking Tobacco: Never Smokeless Tobacco: Never Tobacco Cessation:Counseling Given: Not Answered Alcohol Use Standard Drinks/Week Comments No 0 [...] AM CDT 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:59 AM 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 Gender Identity Female 2019 10:10 AM CDT Sexual Orientation Straight 2019 10 :10 AM CDT Last Filed Vital Signs Vital Sign Reading Time Taken Comments Blood Pressure 135/81 08/03/2024 3:37 PM CDT Pulse 100 08/03/2024 3:37 PM CDT Temperature 36.6 C (97.9 F) 08/03/2024 3:37 PM CDT Respiratory Rate 16 07/04/2024 4:10 PM 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 Oxygen Saturation 99% 08/03/2024 3:37 PM CDT Inhaled Oxygen Concentration - - Weight 104.1 kg (229 lb 9.6 oz) 08/03/2024 3:37 PM CDT Height 160 cm (5' 3) 08/03/2024 3:37 PM CDT Body Mass Index 40.67 08/03/2024 3:37 PM CDT Plan of Treatment Upcoming Encounters Date Type Department Care Team (Late st Contact Info) Description 09/29/2024 4:05 PM CDT Office Visit [facility] [address] [place] [phone] Martine Rios MD [address] [place] [address] 09/29/2024 5:30 PM CDT Ancillary Procedure [address] 1[address] [place] [phone] Martine Rios MD [address] [place] [address] 10/30/2024 3:00 PM CDT Office Visit [facility] [address] [facility] [address] [place] [address] Amadeo King MD [address] [facility] [address] [place], [place] [phone] 12/05/2024 3:00 PM CDT Office Visit [facility] [place] [address] [facility] [address] [place] [address] Emma Deshpande MD [address] [facility] [address] [place] [address] Health Maintenance Due Date Last Done Comments ADVANCE CARE PLANNING 1965 ANNUAL REVIEW OF HM ORDERS 1965 CT COLONOGRAPHY 1965 FIT 1965 FLEX SIG 1965 MAMMO SCREENING 1965 sDNA (Cologuard) 1965 YEARLY PREVENTIVE VISIT 1968 COLONOSCOPY 07/22/1975 COLORECTAL CANCER SCREENING 07/22/1975 HEPATITIS B IMMUNIZATION (1 of 3 - 19+ 3-dose series) 1984 Pneumococcal Vaccine: 50+ Years (1 of 2 - PCV) 1984 ZOSTER IMMUNIZATION (1 of 2) 1984 TSH W/FREE T4 REFLEX 2012 07/22/2011 PAP 11/09/2023 11/08/2020, 11/08/2020 COVID-19 Vaccine (6 - Pfizer risk season) 2024 05/10/2024, 03/06/2023, 05/01/2021, Additional history exists DIABETES SCREENING 09/28/2027 09/27/2024, 0 09/20/2024, 09/13/2024, Additional history exists DTAP/TDAP/TD IMMUNIZATION (2 - Td or Tdap) 11/27/2027 11/26/2017, 06/17/2007 LIPID 05/26/2029 05/26/2024 INFLUENZA VACCINE Completed 02/08/2024, , 02/09/2022, Additional history exists HEPATITIS C SCREENING Completed 05/26/2024 HIV SCREENING Completed 05/26/2024 PHQ-2 (once per calendar year) Completed 08/30/2024, 07/17/2024, 06/07/2024, Additional history exists HPV IMMUNIZATION Aged Out No longer e ligible based on patient's age to complete this topic MENINGITIS IMMUNIZATION Aged Out No l onger eligible based on patient's age to complete this topic Medical Devices Implanted Type Area Township Supervisor Device Identifier Shelf Expiration Date Model / Serial / Lot Amniograft Anniotic Graft [id number] Implanted:Qty: 1 on 07/04/2024 by Amadeo King MD at [facility] Graft Right: Eye BIO-TISSUE 02/06/2026 [id number] / [id number] / Cornea Implanted:Qty: 1 on 07/04/2024 by Amadeo King MD at [facility] Right: Eye 07/12/2024 / -[id number] OD-C / Cornea Implanted:Qty: 1 on 07/04/2024 by Amadeo King MD at [facility] Right: Eye 07/12/2024 / -[id number] OS-C / Procedures Procedure Name Priority Date/Time Associated Diagnosis Comments CBC WITH PLATELETS & DIFFERENTIAL Routine 09/27/2024 5:23 PM CDT 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, unspecified laterality 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 Other specified postprocedural states CBC WITH PLATELETS AND DIFFERENTIAL Routine 09/27/2024 5:23 PM CDT 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, unspecified laterality [facility]CI use of drug Other specified postprocedural states BASIC METABOLIC PANEL Routine 09/27/2024 5:23 PM CDT 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, unspecified laterality 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 Other specified postprocedural states CBC WITH PLATELETS & DIFFERENTIAL Routine 09/20/2024 5:32 PM CDT 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, unspecified laterality FCI use of drug Other specified postprocedural states CBC WITH PLATELETS AND DIFFERENTIAL Routine 09/20/2024 5:32 PM CDT 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, unspecified laterality FCI use of drug Other specified postprocedural states BASIC METABOLIC PANEL Routine 09/20/2024 5:32 PM CDT 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, unspecified laterality FCI use of drug Other specified postprocedural states TACROLIMUS BY TANDEM MASS SPECTROMETRY Routine 09/20/2024 5:32 PM CDT 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, unspecified laterality 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 Other specified postprocedural states TACROLIMUS BY TANDEM MASS SPECTROMETRY Routine 09/13/2024 5:31 PM CDT 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, unspecified laterality FCI use of drug Other specified postprocedural states CBC WITH PLATELETS & DIFFERENTIAL Routine 09/13/2024 5:30 PM CDT 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, unspecified laterality FCI use of drug Other specified postprocedural states CBC WITH PLATELETS AND DIFFERENTIAL Routine 09/13/2024 5:30 PM CDT 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, unspecified laterality FCI use of drug Other specified postprocedural states BASIC METABOLIC PANEL Routine 09/13/2024 5:30 PM CDT 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, unspecified laterality FCI use of drug Other specified postprocedural states CBC WITH PLATELETS & DIFFERENTIAL Routine 09/05/2024 5:37 PM CDT 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, unspecified laterality 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 Other specified postprocedural states TACROLIMUS BY TANDEM MASS SPECTROMETRY Routine 09/05/2024 5:37 PM CDT 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, unspecified laterality 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 Other specified postprocedural states CBC WITH PLATELETS AND DIFFERENTIAL Routine 09/05/2024 5:37 PM CDT 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, unspecified laterality FCI use of drug Other specified postprocedural states BASIC METABOLIC PANEL Routine 09/05/2024 5:37 PM CDT 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, unspecified laterality [facility] use of drug Other specified postprocedural states CBC WITH PLATELETS & DIFFERENTIAL Routine 08/29/2024 5:33 PM CDT 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, unspecified laterality 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 Other specified postprocedural states CBC WITH PLATELETS AND DIFFERENTIAL Routine 08/29/2024 5:33 PM CDT 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, unspecified laterality FCI use of drug Other specified postprocedural states TACROLIMUS BY TANDEM MASS SPECTROMETRY Routine 08/29/2024 5:33 PM CDT 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, unspecified laterality FCI use of drug Other specified postprocedural states BASIC METABOLIC PANEL Routine 08/29/2024 5:33 PM CDT 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, unspecified laterality FCI use of drug Other specified postprocedural states MYCOPHENOLIC ACID BY TANDEM MASS SPECTROMETRY Routine 08/22/2024 5:33 PM CDT Limbal stem cell deficiency CBC WITH PLATELETS & DIFFERENTIAL Routine 08/15/2024 5:34 PM CDT 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, unspecified laterality 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 Other specified postprocedural states CBC WITH PLATELETS AND DIFFERENTIAL Routine 08/15/2024 5:34 PM CDT 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, unspecified laterality 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 Other specified postprocedural states TACROLIMUS BY TANDEM MASS SPECTROMETRY Routine 08/15/2024 5:34 PM CDT 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, unspecified laterality FCI use of drug Other specified postprocedural states BASIC METABOLIC PANEL Routine 08/15/2024 5:34 PM CDT 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, unspecified laterality FCI use of drug Other specified postprocedural states CBC WITH PLATELETS & DIFFERENTIAL Routine 08/07/2024 5:34 PM CDT 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, unspecified laterality 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 Other specified postprocedural states ANGELIQUE BEYER VIRUS QUANTITATIVE PCR, PLASMA Routine 08/07/2024 5:34 PM CDT Immunosuppression CMV QUANTITATIVE, PCR Routine 08/07/2024 5:34 PM CDT Immunosuppression CBC WITH PLATELETS AND DIFFERENTIAL Routine 08/07/2024 5:34 PM CDT 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, unspecified laterality FCI use of drug Other specified postprocedural states BLOOD GAS VENOUS Routine 08/07/2024 5:34 PM CDT Immunosuppression TACROLIMUS BY TANDEM MASS SPECTROMETRY Routine 08/07/2024 5:34 PM CDT 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, unspecified laterality FCI use of drug Other specified postprocedural states BASIC METABOLIC PANEL Routine 08/07/2024 5:34 PM CDT 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, unspecified laterality FCI use of drug Other specified postprocedural states MYCOPHENOLIC ACID BY TANDEM MASS SPECTROMETRY Routine 08/07/2024 5:34 PM CDT 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, unspecified laterality 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 Other specified postprocedural states CBC WITH PLATELETS & DIFFERENTIAL Routine 08/02/2024 5:26 PM CDT 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, unspecified laterality 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 Other specified postprocedural states CBC WITH PLATELETS AND DIFFERENTIAL Routine 08/02/2024 5:26 PM CDT 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, unspecified laterality FCI use of drug Other specified postprocedural states TACROLIMUS BY TANDEM MASS SPECTROMETRY Routine 08/02/2024 5:26 PM CDT 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, unspecified laterality 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 Other specified postprocedural states BASIC METABOLIC PANEL Routine 08/02/2024 5:26 PM CDT 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, unspecified laterality 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 Other specified postprocedural states MYCOPHENOLIC ACID BY TANDEM MASS SPECTROMETRY Routine 08/02/2024 5:26 PM CDT 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, unspecified laterality 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 Other specified postprocedural states BASIC METABOLIC PANEL Routine 07/29/2024 11:58 AM CDT 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, unspecified laterality FCI use of drug Other specified postprocedural states CBC WITH PLATELETS & DIFFERENTIAL Routine 07/26/2024 5:26 PM CDT 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, unspecified laterality FCI use of drug Other specified postprocedural states CBC WITH PLATELETS AND DIFFERENTIAL Routine 07/26/2024 5:26 PM CDT 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, unspecified laterality FCI use of drug Other specified postprocedural states MYCOPHENOLIC ACID BY TANDEM MASS SPECTROMETRY Routine 07/26/2024 5:26 PM CDT 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, unspecified laterality 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 Other specified postprocedural states TACROLIMUS BY TANDEM MASS SPECTROMETRY Routine 07/26/2024 5:26 PM CDT 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, unspecified laterality 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 Other specified postprocedural states BASIC METABOLIC PANEL Routine 07/26/2024 5:26 PM CDT 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, unspecified laterality 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 Other specified postprocedural states CBC WITH PLATELETS & DIFFERENTIAL Routine 07/17/2024 5:44 PM CDT 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, unspecified laterality 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 Other specified postprocedural states CBC WITH PLATELETS AND DIFFERENTIAL Routine 07/17/2024 5:44 PM CDT 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, unspecified laterality FCI use of drug Other specified postprocedural states BASIC METABOLIC PANEL Routine 07/17/2024 5:44 PM CDT 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, unspecified laterality 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 Other specified postprocedural states TACROLIMUS BY TANDEM MASS SPECTROMETRY Routine 07/17/2024 5:44 PM CDT 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, unspecified laterality FCI use of drug Other specified postprocedural states CBC WITH PLATELETS & DIFFERENTIAL Routine 07/13/2024 5:33 PM 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, unspecified laterality 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 Other specified postprocedural states CBC WITH PLATELETS AND DIFFERENTIAL Routine 07/13/2024 5:33 PM 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, unspecified laterality FCI use of drug Other specified postprocedural states TACROLIMUS BY TANDEM MASS SPECTROMETRY Routine 07/13/2024 5:33 PM 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, unspecified laterality FCI use of drug Other specified postprocedural states BASIC METABOLIC PANEL Routine 07/13/2024 5:33 PM 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, unspecified laterality FCI use of drug Other specified postprocedural states ENTERIC BACTERIA AND VIRUS PANEL BY PCR Routine 07/12/2024 6:30 AM 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 Diarrhea CBC WITH PLATELETS & DIFFERENTIAL Routine 07/10/2024 5:33 PM 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, unspecified laterality 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 Other specified postprocedural states CMV QUANTITATIVE, PCR Routine 07/10/2024 5:33 PM 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 Diarrhea CBC WITH PLATELETS AND DIFFERENTIAL Routine 07/10/2024 5:33 PM 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, unspecified laterality 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 Other specified postprocedural states MYCOPHENOLIC ACID BY TANDEM MASS SPECTROMETRY Routine 07/10/2024 5:33 PM 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, unspecified laterality FCI use of drug Other specified postprocedural states TACROLIMUS BY TANDEM MASS SPECTROMETRY Routine 07/10/2024 5:33 PM 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, unspecified laterality [facility]CI use of drug Other specified postprocedural states BASIC METABOLIC PANEL Routine 07/10/2024 5:33 PM 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, unspecified laterality 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 Other specified postprocedural states CBC WITH PLATELETS & DIFFERENTIAL Routine 07/06/2024 5:40 PM 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, unspecified laterality 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 Other specified postprocedural states CBC WITH PLATELETS AND DIFFERENTIAL Routine 07/06/2024 5:40 PM 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, unspecified laterality FCI use of drug Other specified postprocedural states MYCOPHENOLIC ACID BY TANDEM MASS SPECTROMETRY Routine 07/06/2024 5:40 PM 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, unspecified laterality FCI use of drug Other specified postprocedural states TACROLIMUS BY TANDEM MASS SPECTROMETRY Routine 07/06/2024 5:40 PM 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, unspecified laterality [facility]CI use of drug Other specified postprocedural states BASIC METABOLIC PANEL Routine 07/06/2024 5:40 PM 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, unspecified laterality FCI use of drug Other specified postprocedural states AEROBIC BACTERIAL CULTURE ROUTINE Routine 07/04/2024 1:12 PM 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 FUNGAL OR YEAST CULTURE ROUTINE Routine 07/04/2024 1:12 PM 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 ANAEROBIC BACTERIAL CULTURE ROUTINE Routine 07/04/2024 1:12 PM 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 AEROBIC BACTERIAL CULTURE ROUTINE Routine 07/04/2024 1:02 PM 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 FUNGAL OR YEAST CULTURE ROUTINE Routine 07/04/2024 1:02 PM 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 ANAEROBIC BACTERIAL CULTURE ROUTINE Routine 07/04/2024 1:02 PM 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 AEROBIC BACTERIAL CULTURE ROUTINE Routine 07/04/2024 1:01 PM 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 FUNGAL OR YEAST CULTURE ROUTINE Routine 07/04/2024 1:01 PM 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 ANAEROBIC BACTERIAL CULTURE ROUTINE Routine 07/04/2024 1:01 PM 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 ANE AIRWAY SUPRAGLOTTIC PERFORMABLE Routine 07/04/2024 12:18 PM 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 KERATOPLASTY, PENETRATING 07/04/2024 12:11 PM 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 Corneal transplant failure, 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 Due to time/cost, it cannot be given in preop. Needs infusion center. Will check-in after in fusion and have IV already. 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, unspecified laterality FCI use of drug Other specified postprocedural states TACROLIMUS BY TANDEM MASS SPECTROMETRY Routine 07/03/2024 5:33 PM 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, unspecified laterality 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 Other specified postprocedural states BASIC METABOLIC PANEL Routine 07/03/2024 5:33 PM 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, unspecified laterality 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 Other specified postprocedural states CBC WITH PLATELETS & DIFFERENTIAL Routine 06/30/2024 5:23 PM 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, unspecified laterality FCI use of drug Other specified postprocedural states CBC WITH PLATELETS AND DIFFERENTIAL Routine 06/30/2024 5:23 PM 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, unspecified laterality 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 Other specified postprocedural states BASIC METABOLIC PANEL Routine 06/30/2024 5:23 PM 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, unspecified laterality 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 Other specified postprocedural states MYCOPHENOLIC ACID BY TANDEM MASS SPECTROMETRY Routine 06/30/2024 5:23 PM 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, unspecified laterality FCI use of drug Other specified postprocedural states TACROLIMUS BY TANDEM MASS SPECTROMETRY Routine 06/30/2024 5:23 PM 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, unspecified laterality FCI use of drug Other specified postprocedural states HIV ANTIGEN ANTIBODY COMBO PRETRANSPLANT Routine 05/26/2024 5:04 PM 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 Limbal stem cell deficiency Immunosuppressed status HEPATITIS C ANTIBODY Routine 05/26/2024 5:04 PM 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 Limbal stem cell deficiency Immunosuppressed status LIPID REFLEX TO DIRECT LDL PANEL Routine 05/26/2024 5:04 PM 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 Limbal stem cell deficiency Immunosuppressed status TSH STAT 07/22/2011 8:00 AM CDT from Last 3 Months or Most Recently Relevant to Health Maintenance Results * (ABNORMAL) CBC with platelets and differential (09/27/2024 5:23 PM CDT) Only the most recent of15 resultswithin the time period is included. WBC Count 5.7 4.0 - 11.0 10e3/uL [...] LAB - BLOOD ORDERABLES Final Result LABORATORY [facility] [address] Lab (1st floor, no room number) [place] [address] * (ABNORMAL) Basic metabolic panel (09/27/2024 5:23 PM CDT) Only the most recent of16 resultswithin the time period is included. Sodium 136 135 - 145 mmol/L 09/27/2024 5:51 PM CDT LABORATORY Potassium 4.3 3.4 - 5.3 mmol/L 09/27/2024 5:51 PM CDT LABORATORY Chloride 102 98 - 107 mmol/L 09/27/2024 5:51 PM CDT LABORATORY Carbon Dioxide (CO2) 24 22 - 29 mmol/L 09/27/2024 5:51 PM CDT LABORATORY Anion Gap 10 7 - 15 mmol/L 09/27/2024 5:51 PM CDT LABORATORY Urea Nitrogen 12.2 8.0 - 23.0 mg/dL 09/27/2024 5:51 PM CDT LABORATORY Creatinine 0.69 0.51 - 0.95 mg/dL 09/27/2024 5:51 PM CDT LABORATORY GFR Estimate >90 >60 mL/min/1.7 3m2 09/27/2024 5:51 PM CDT [facility]AT[facility] Comment:eGFR calculated 2020 CKD-EPI equation. Calcium 9.5 8.8 - 10.4 mg/dL 09/27/2024 5:51 PM CDT [facility] Glucose 109(H) 70 - 99 mg/dL 09/27/2024 5:51 PM CDT [facility] Blood STRUCTURE OF LEFT UPPER LIMB / Unknown Venipuncture / Unknown 09/27/2024 5:23 PM CDT 09/27/2024 5:23 PM CDT Martine Rios MD LAB - BLOOD ORDERABLES Final Result [facility] LABORATORY [facility] [address] Lab (1st floor, no room number) [place] [address], [facility] * Tacrolimus by Tandem Mass Spectrometry (09/20/2024 5:32 PM CDT) Only the most recent of14 resultswithin the time period is included. Tacrolimus by Tandem Mass Spectrometry 8.8 5.0 [...] and its performance characteristics determined by the [facility], Special Chemistry Laboratory. It has not been cleared or approved by the FDA. The laboratory is regulated under CLIA as qualified to perform high-complexity testing. This test is used for clinical purposes. It should not be regarded as investigational or for research. Martine Rios MD LAB - BLOOD ORDERABLES Final Result [facility] [address] [facility], [address] [place] [address], [facility] * Mycophenolic Acid by Tandem Mass Spectrometry (08/22/2024 5:33 PM CDT) Only the most recent of7 resultswithin the time period is included. Mycophenolic Acid by Tandem Mass Spectrometry 1.10 [...] and its performance characteristics determined by the [facility]. It has not been cleared or approved by the FDA. The laboratory is regulated under CLIA as qualified to perform high-complexity testing. This test is used for clinical purposes. It should not be regarded as investigational or for research. Martine Rios MD LAB - BLOOD ORDERABLES Final Result [facility] Special Drug/[facility] [address] [facility], [address] [id number] * Angelique Beyer Virus Quantitative PCR, Plasma (08/07/2024 5:34 PM CDT) EBV DNA IU/mL Not Detected Not Detected IU/mL 08/08/2024 2:39 PM CDT [facility] Blood STRUCTURE OF RIGHT UPPER LIMB / Unknown Venipuncture / Unknown 08/07/2024 5:34 PM CDT 08/07/2024 5:38 PM CDT Narrative [facility] - 08/08/2024 2:39 PM CDT The armando EBV assay is an FDA-approved, in vitro nucleic acid amplification test for the quantification of Angelique-Beyer virus (EBV) in human EDTA plasma on the [employer] armando instrument system for automated viral nucleic acid extraction, purification, amplification, and detection of the viral nucleic acid target. Selective amplification of target nucleic acid from the sample is achieved using a dual target virus-specific approach from highly conserved regions of the EBV located in the EBV EBNA-1 gene and the EBV BMRF gene. This test is intended for use as an aid in the management of EBV in transplant patients. In patients undergoing monitoring of EBV, serial DNA measurements can be used to indicate the need for potential treatment changes and to assess response to treatment. The assay is calibrated to the World Health Organization International Standard for EBV DNA. Titer results are reported in International Units (IU)/mL. Martine Rios MD LAB - MICRO GENERAL ORDERABL ES Final Result [facility]AT[facility] Inf. Diseases Diag. Lab [address] [place] [address] * CMV Quantitative, PCR (08/07/2024 5:34 PM CDT) Only the most recent of2 resultswithin the time period is included. CMV DNA IU/mL Not Detected Not Detected IU/mL 08/08/2024 12:55 PM CDT [facility] CMV Quantitative PCR Specimen Type Blood 08/08/2024 12:55 PM CDT [facility] Blood STRUCTURE OF RIGHT UPPER LIMB / Unknown Venipuncture / Unknown 08/07/2024 5:34 PM CDT 08/07/2024 5:38 PM CDT Narrative [facility] - 08/08/2024 12:55 PM CDT The armando CMV assay is a FDA-approved in vitro nucleic acid amplification test for the quantification of cytomegalovirus (CMV) DNA in human EDTA plasma using the [place] armando instrument system for automated viral nucleic acid extraction and purification (silica-based capture technique), followed by PCR amplification and real-time detection. Selective amplification of target nucleic acid from the sample is achieved by the use of target virus-specific forward and reverse primers which are selected from highly conserved regions of the CMV DNA polymerase (UL54) gene. This test is intended for use as an aid in the management of CMV in transplant patients. In patients receiving anti-CMV therapy, serial DNA measurements can be used to assess viral response to treatment. Titer results are reported in International Units/mL (IU/mL). This assay has received FDA approval for the testing of human EDTA plasma only. The [facility] at [facility] has validated the performance characteristics of the armando CMV assay for plasma and urine. Martine Rios MD LAB - MICRO GENERAL ORDERABL ES Final Result [facility] Inf. Diseases Diag. Lab [address] [place] [address], [facility] * (ABNORMAL) Blood gas venous (08/07/2024 5:34 PM CDT) pH Venous 7.33 7.32 - 7.43 08/07/2024 5:51 PM CDT [facility] pCO2 Venous 37(L) 40 - 50 mm Hg 08/07/2024 5:51 PM CDT [facility] pO2 Venous 38 25 - 47 mm Hg 08/07/2024 5:51 PM CDT [facility] Bicarbonate Venous 20(L) 21 - 28 mmol/L 08/07/2024 5:51 PM CDT [facility] Base Excess/Deficit Venous -5.5(L) -3.0 - 3.0 mmol/L 08/07/2024 5:51 PM CDT [facility] FIO2 0 BHAVIN 08/07/2024 5:51 PM CDT [facility] Comment:room air Oxyhemoglobin Venous 70 70 - 75 % 08/07/2024 5:51 PM CDT [facility] O2 Sat, Venous 71.6 70.0 - 75.0 % 08/07/2024 5:51 PM CDT [facility] Blood, venous STRUCTURE OF RIGHT UPPER LIMB / Unknown Venipuncture / Unknown 08/07/2024 5:34 PM CDT 08/07/2024 5:34 PM CDT Narrative [facility] - 08/07/2024 5:51 PM CDT In healthy individuals, oxyhemoglobin (O2Hb) and oxygen saturation (SO2) are approximately equal. In the presence of dyshemoglobins, oxyhemoglobin can be considerably lower than oxygen saturation. us Martine Rios MD LAB - BLOOD ORDERABLES Final Result [facility] LABORATORY [facility] [address] [facility] [facility] Lab (1st floor, no room number) [place] [address], [facility] * Enteric Bacteria and Virus Panel by BERTA Stool (07/12/2024 6:30 AM 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) Pathologist [facility] Campylobacter species Negative Negative 07/13/2024 4:11 PM 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 [facility] Salmonella species Negative Negative 2024 4:11 PM 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 [facility] Vibrio species Negative Negative 07/13/2024 4:11 PM 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 [facility] Vibrio cholerae Negative Negative 4:11 PM 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 [facility] Yersinia enterocolitica Negative Negative 07/13/2024 4:11 PM 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 [facility] Enteropathogenic E. coli (EPEC) Negative Negative, NA 07/13/2024 4:11 PM 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 [facility] Shiga-like toxin-producing E. coli (STEC) Negative Negative 07/13/2024 4:11 PM 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 [facility] Shigella/Enteroinvas kassidy E. coli (EIEC) Negative Negative 07/13/2024 4:11 PM 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 [facility] Cryptosporidium species Negative Negative 07/13/2024 4:11 PM 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 [facility] Giardia lamblia Negative Negative 4:11 PM 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 [facility] Norovirus Gl/Gll Negative Negative 07/14/19 4:11 PM 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 [facility] Rotavirus A Negative Negative 07/13/2024 4:11 PM 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 [facility] Plesiomonas shigelloides Negative Negative 07/13/2024 4:11 PM 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 [facility] Enteroaggregative E. coli (EAEC) Negative Negative 07/13/2024 4:11 PM 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 [facility] Enterotoxigenic E. coli (ETEC) Negative Negative 07/13/2024 4:11 PM 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 [facility] E. coli O157 NA Negative, NA 07/13/2024 4:11 PM 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 [facility] Cyclospora cayetanensis Negative Negative 07/13/2024 4:11 PM 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 [facility] Entamoeba histolytica Negative Negative 07/13/2024 4:11 PM 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 [facility] Adenovirus F40/41 Negative Negative 025 4:11 PM 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 [facility] Astrovirus Negative Negative 07/13/2024 4:11 PM 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 [facility] Sapovirus Negative Negative 07/13/2024 4:11 PM 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 [facility] Stool RECTAL CONTENTS / Unknown Non-blood Collection / Unknown 07/12/2024 6:30 AM 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 07/12/2024 3:12 PM 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 Narrative [facility] - 07/13/2024 4:11 PM 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 Assay performed using the FDA-cleared FilmArray GI Panel from [employer] A negative result should not rule out infection in patients with a probability for gastrointestinal infection. The assay does not test for all potential infectious agents of diarrheal disease. Positive results do not distinguish between a viable or replicating organism and the presence of a nonviable organism or nucleic acid, nor do they exclude the possibility of coinfection by organisms not in the panel. Results are intended to aid in the diagnosis of illness and are meant to be used in conjunction with other clinical findings. This test has been verified and is performed by the Infectious [facility] Diagnostic Laboratory at [facility]. This laboratory is certified under the Clinical Laboratory Improvement Amendments of 1988 (CLIA-88) as qualified to perform high complexity clinical laboratory testing. Martine Rios MD LAB - MICRO GENERAL ORDERABL ES Final Result [facility] Inf. Diseases Diag. Lab [address] [facility], [address] [place] [phone] * (ABNORMAL) Tissue Aerobic Bacterial Culture Routine (07/04/2024 1:12 PM 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) Only the most recent of3 resultswithin the time period is included. Culture 2+ Staphylococcus epidermidis(A) 07/10/2024 1:05 PM 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 [facility] Tissue STRUCTURE OF CORNEA OF RIGHT EYE / Unknown Non-blood Collection / Unknown 07/04/2024 1:12 PM 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 07/04/2024 3:37 PM 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 Narrative Organism Antibiotic Method Susceptibility Staphylococcus epidermidis Oxacillin BHAVIN >=4 ug/mL: Resistant Comment:Oxacillin nolan sceptible isolates are susceptible to cephalosporins (example: cefazolin and cephalexin) and beta lactam combination agents. Oxacillin resistant isolates are resistant to these agents. Staphylococcus epidermidis Gentamicin BHAVIN <=0.5 ug/mL: Susceptible Staphylococcus epidermidis Ciprofloxacin BHAVIN >=8 ug/mL: Resistant Staphylococcus epidermidis Levofloxacin BHAVIN >=8 ug/mL: Resistant Staphylococcus epidermidis Erythromycin BHAVIN >=8 ug/mL: Resistant Staphylococcus epidermidis Clindamycin BHAVIN 0.25 ug/mL: Susceptible Comment:This isolate DOES NOT demonstrate inducible clindamycin resistance in vitro. Clindamycin is susceptible and could be used when indicated, however, erythromycin is resistant and should not be used. Staphylococcus epidermidis Vancomycin BHAVIN 3 ug/mL: Susceptible Staphylococcus epidermidis Daptomycin BHAVIN 1 ug/mL: Susceptible Staphylococcus epidermidis Tetracycline BHAVIN 2 ug/mL: Susceptible Staphylococcus epidermidis Doxycycline BHAVIN <=0.5 ug/mL: Susceptible Comment: Antibiotics listed as No Interpretation have no regulatory guidelines for susceptibility/resistance available. Amadeo King MD LAB - MICRO GENERAL ORDERA BLES Final Result [facility] Inf. Diseases Diag. Lab [address] [facility], Room [place] [id number] * Fungal or Yeast Culture Routine (07/04/2024 1:12 PM 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) Only the most recent of3 resultswithin the time period is included. Culture No Growth BHAVIN 08/01/2024 7:40 AM CDT [facility] Tissue STRUCTURE OF CORNEA OF RIGHT EYE / Unknown Non-blood Collection / Unknown 07/04/2024 1:12 PM 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 07/04/2024 3:37 PM 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 Amadeo King MD LAB - MICRO GENERAL ORDERA BLES Final Result [facility] Inf. Diseases Diag. Lab [address] [facility], Room [place] [phone] * Anaerobic Bacterial Culture Routine (07/04/2024 1:12 PM 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) Only the most recent of3 resultswithin the time period is included. Culture No anaerobic organisms isolated BHAVIN 07/11/2024 7:35 AM 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 [facility] Tissue STRUCTURE OF CORNEA OF RIGHT EYE / Unknown Non-blood Collection / Unknown 07/04/2024 1:12 PM 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 07/04/2024 3:37 PM 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 Amadeo King MD LAB - MICRO GENERAL ORDERA BLES Final Result [facility] Inf. Diseases Diag. Lab [address] [facility], [address] [place] [address] * ANE AIRWAY SUPRAGLOTTIC PERFORMABLE (07/04/2024 12:18 PM 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) Narrative Pina Menchaca APRN VENTILATION WORKER - 07/04/2024 12:18 PM 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 Pina Menchaca APRN VENTILATION WORKER 07/04/2024 12:30 PM Airway Patient location during procedure: OR Procedure Start/Stop Times: 07/04/2024 12:18 PM Staff - VENTILATION WORKER: Pina Menchaca APRN CRNA Performed By: VENTILATION WORKER Consent for Airway Urgency: elective Indications and Patient Condition Indications for airway management: dhiraj-procedural Induction type:intravenous Mask difficulty assessment: 1 - vent by mask Final Airway Details Final airway type: supraglottic airway Supraglottic Airway Details Type: LMA Brand: LMA Unique LMA size: 4 Post intubation assessment Placement verified by: capnometry, equal breath sounds and chest rise Number of attempts at approach: 1 Secured with: tape Ease of procedure: easy Dentition: Intact and Unchanged Medication(s) Administered Medication Administration Time: 07/04/2024 12:18 PM Carlos Dalton MD [place] ANESTHESIA Final Result * (ABNORMAL) Glucose by meter (07/04/2024 11:11 AM 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) [facility] GLUCOSE BY METER POCT 122(H) 70 - 99 mg/dL 07/04/2024 11:18 AM 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 [facility] POC Blood, venous BLOOD SPECIMEN / Unknown 07/04/2024 11:11 AM 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 07/04/2024 11:18 AM 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 Amadeo King MD LAB - BEAKER POCT Final Re sult [facility] POC [address] 1[address] [place] [address] * HIV Antigen Antibody Combo Pretransplant [place] (05/26/2024 5:04 PM 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) HIV Antigen Antibody Combo Pretransplant Nonreactive Nonreactive 05/27/2024 10:48 AM 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 [facility] Comment:Negative HIV-1 p24 a ntigen and HIV-1/2 antibody screening test results usually indicate the absence of HIV-1 and HIV-2 infection. However, such negative results do not rule-out acute HIV infection. If acute HIV-1 or HIV-2 infection is suspected, detection of HIV-1 or HIV-2 RNA is recommended. This result is obtained using the [employer] HIV Duo method on the armando e801 immunoassay analyzer. Blood STRUCTURE OF RIGHT UPPER LIMB / Unknown Venipuncture / Unknown 05/26/2024 5:04 PM 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 05/26/2024 5:07 PM 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 Martine Rios MD LAB - BLOOD ORDERABLES Final Result [facility] [place] Core Lab [address] [facility], Room [address] [place] [phone] * (ABNORMAL) Lipid panel reflex to direct LDL Fasting (05/26/2024 5:04 PM 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) Cholesterol 218(H) <200 mg/dL 05/27/2024 11:08 AM 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 [facility] Triglycerides 196(H) <150 mg/dL 05/27/2024 11:08 AM 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 [facility] Direct Measure HDL 43(L) >=50 mg/dL 05/27/2024 11:08 AM 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 [facility] LDL Cholesterol Calculated 136(H) <100 mg/dL 05/27/2024 11:08 AM 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 [facility] Non HDL Cholesterol 175(H) <130 mg/dL 05/27/2024 11:08 AM 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 [facility] Patient Fasting > 8hrs? No 05/27/2024 11:08 AM 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 [facility] Blood STRUCTURE OF RIGHT UPPER LIMB / Unknown Venipuncture / Unknown 05/26/2024 5:04 PM 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 05/26/2024 5:07 PM 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 Narrative [facility] - 05/27/2024 11:08 AM 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 Cholesterol Desirable: < 200 mg/dL Borderline High: 200 - 239 mg/dL High: >= 240 mg/dL Triglycerides Normal: < 150 mg/dL Borderline High: 150 - 199 mg/dL High: 200-499 mg/dL Very High: >= 500 mg/dL Direct Measure HDL Female: >= 50 mg/dL Male: >= 40 mg/dL LDL Cholesterol Desirable: < 100 mg/dL Above Desirable: 100 - 129 mg/dL Borderline High: 130 - 159 mg/dL High: 160 - 189 mg/dL Very High: >= 190 mg/dL Non HDL Cholesterol Desirable: < 130 mg/dL Above Desirable: 130 - 159 mg/dL Borderline High: 160 - 189 mg/dL High: 190 - 219 mg/dL Very High: >= 220 mg/dL Martine Rios MD LAB - BLOOD ORDERABLES Final Result [facility] [place] Core Lab [address] [facility], [address] [place] [address], [facility] Acute Care Lab [address] [facility] (1st floor, no room number) [place] [address] * Hepatitis C antibody (05/26/2024 5:04 PM 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) Hepatitis C Antibody Nonreactive Nonreactive 05/27/2024 10:34 AM 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 [facility] Comment:A nonreactive screen ing test result does not exclude the possibility of exposure to or infection with HCV. Nonreactive screening test results in individuals with prior exposure to HCV may be due to antibody levels below the limit of detection of this assay or lack of reactivity to the HCV antigens used in this assay. Patients with recent HCV infections (<3 months from time of exposure) may have false- negative HCV antibody results due to the time needed for seroconversion (average of 8 to 9 weeks). Blood STRUCTURE OF RIGHT UPPER LIMB / Unknown Venipuncture / Unknown 05/26/2024 5:04 PM 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 05/26/2024 5:07 PM 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 us Martine Rios MD LAB - BLOOD ORDERABLES Final Result [facility] [place] Core Lab [address] [facility] [address], [address] [place] [address] * (ABNORMAL) TSH (07/22/2011 8:00 AM CDT) TSH 14.50(H) 0.4 - 5.0 mU/L [facility] Blood specimen (specimen) 07/22/2011 8:00 AM CDT 07/22/2011 8:14 AM CDT us Yesenia Gomez MD LAB - BLOOD ORDERABLE S Final Result [facility] [address] [place] [id number] [phone] from Last 3 Months or Most Recently Relevant to Health Maintenance Insurance [employer] [facility] [facility] [employer] Care Teams Mapping Editor Relationship Specialty Start Date End Date Martina Strickland PA-C PCP - General Physician Vp Organizational Development 07/19/19 Ailin Zavala MD Internal Medicine 07/28/11 Amadeo King MD [address] [phone] Ophthalmology 12/22/19 Joseph Trivedi MD [facility] [address] [address] Rheumatology 05/21/20 Rene Grant MD [address] [place] [address] Assigned Surgical Provider 09/12/22 Manju Perkins, JENNIFER Registered Nurse 05/24/24 Martine Rios MD [address] [place] [address] [phone] Assigned Nephrology Provider 07/02/24
--- OUTSIDE RECORDS SUMMARY | 2024-09-27 20:27 | XMS_ITS | Data Portability ---
[facility] Organization [facility] Address [address] [place] [address] Care Team Providers Care Research Computing Specialist Name Role Phone [facility] Primary Care Provider Assessment No assessment recorded. Plan of Treatment Reminders Order Date Submit Date Provider Last Modified By Organization Details Last Modified Time Details Appointments None recorded. Lab urinalysis , dipstick 2021 022 [email or web address] [facility], [address], [place], [address], 16:12:15 Referral None recorded. Procedures None recorded. Surgeries None recorded. Imaging None recorded. Medication Orders None recorded. Patient TargetsNo targets recorded. Patient InstructionsNo instructions recorded. Reason for Referral None Reported. Results Created Date Observation Date Name Description Value Unit Range Abnormal Flag Note LastModifiedBy Organization Detail LastModifiedTime 03/11/2003/11/2022 urina lysis , dipst ick pH-Status 6.5 Not Available [facility] [address], [place], [address], 03/11/2022 16:11:45 03/11/20 22 03/11/2022 urina lysis , dipst ick Leuko-Status Small Not Available [facility] [address], [place], [address], 03/11/2022 16:11:45 03/13/20 22 03/11/2022 bladd er scan (PROC ) No observ ation record ed. BARCODE Not Available 2021 17:09:20 Result Notes None recorded. Procedures Surgical History Date Name Laterality Status Provider Name and Address Organization Details Recorded Time Bladder Scan completed [facility]ney [facility] 03/11/2022 16:11:42 Imaging Results Imaging Date Name Status LastModified by Organiz ation Details LastModified Time 03/11/2022 bladder scan (PROC) completed BARCODE Information not available 03/13/2022 17:09:20 Procedure Notes None recorded. Medical Equipment None Reported. Allergies No known drug allergies Medications Name Sig Start Date Stop Date Status Note LastModified by Organization Details LastModified Time sodium chloride 5 % eye drops INSTILL 1 DROP IN RIGHT EYE EVERY 2 HOURS active Not Available Not Available No t Available medroxyprog esterone 10 mg tablet TAKE 1 TABLET BY MOUTH DAILY FOR 10 DAYS. 03/11 completed Not Available Not Available Not Available ofloxacin 0.3 % eye drops INSTILL 1 DROP IN RIGHT EYE TWICE DAILY 03/11 completed Not Available Not Available Not Available meloxicam 15 mg tablet TAKE 1 TABLET BY MOUTH DAILY active Not Available Not Available No t Available Synthroid 125 mcg tablet TAKE 1 TABLET BY MOUTH DAILY active Not Available Not Available No t Available sulfamethox azole 800 mg-trimetho prim 160 mg tablet TAKE 1 TABLET BY MOUTH TWICE DAILY FOR 5 DAYS FOR CONTINED UTI TREATMENT 03/11 completed Not Available Not Available Not Available mycophenola te mofetil 500 mg tablet active Not Available Not Available Not Available prednisolon e acetate 1 % eye drops,suspe nsion 2021 active Not Available Not Available Not Avai lable cephalexin 500 mg capsule 03/11 completed Not Available Not Available Not Available brimonidine 0.2 % eye drops INSTILL 1 DROP IN RIGHT EYE TWICE DAILY active Not Available Not Available No t Available metformin ER 500 mg tablet,exte nded release 24 hr TAKE 4 TABLETS BY MOUTH DAILY active Not Available Not Available No t Available Vitals Date Recorded Body height Body mass index (BMI) Body weight Provider Name and Address Organization Details Last Updated DateTime 03/11/2022 160.02 cm 38.1 kg/m2 [address] [facility] 03/11/2022 16:15:13 Social History Question Answer Notes LastModified by Organizat ion Details LastModified Time Tobacco Smoking Status Never Smoker [facility] [place] [facility] 03/11/2022 16:12:59 What Is Your Level Of Caffeine Consumption? Moderate Information not available 03/11/2022 What Was The Date Of Your Most Recent Tobacco Screening? 03/11/2022 Information not available 03/11/2022 Sex: Unknown Functional Status Question Answer Note LastModified by Organization D etails LastModified Time What is your level of alcohol consumption? None Information not available 03/11/2022 Mental Status None recorded. Family History Relationship Description Onset Age of this Age Resolved Age Notes LastModified by Organization Details LastModified Time Paternal Grandmother Family history of diabetes mellitus [email or web address] Not available 2021 16:13:56 Paternal Aunt Family history of diabetes mellitus [email or web address] Not available 2021 16:13:56 Medical History Condition Response Diabetes N Sexually Transmitted Infection N Other N Bleeding Disorder N High Blood Pressure N Kidney Stones N Cancer N Depression N Lung Disease N High Cholesterol N GERD/Acid Reflux N Heart Disease N Gynecological HistoryNo gynecological history recorded. Obstetrics History GPAL:G 1 P 0 0 0 0 Past Encounters Encounter ID Performer Location Encounter Start Date Encounter Closed Date Diagnosis/Indication Diagnosis SNOMED-CT Code Diagnosis ICD10 Code Diagnosis Note [id number] VLAD JOY [facility] [address] [place] [address] 03/11/2022 15:57:10 03/16/2022 14:44:32 Recurrent urinary tract infection 862522586 N39.0 UTI treatments and management s were discussed. Most of the time there is a predisposi tion for re-coloniz ation and invasion of the urothelium by pathogens and no other pathology identified . I stressed the importance of obtaining urine culture at the time of UTI symptoms to guide the correct antibiotic choice and prevent antibiotic resistance . I went over the role of preventati ve UTI therapies such as: Timed and double voiding, D-mannose, Probiotics , Cranberry Pills. Urine for pathnostic s today, will call with results option for upper tract imaging and cysto in future Health Concerns Section Related Observation LastModified by Organization Detai ls LastModified Time None Recorded Concern Status LastModified by Organization Details LastModified Time None Recorded Advance Directives Directive None Recorded Payers Insurance Date Sequence Insurance Name Policy Number Policy Priest Covered Member ID Priest Member ID Guarantor Name 03/16/2022 1 DAVINA [id number] Paula Puga [id number] Paula Puga Notes Date Note Type Note Provider Name and Address Organization Details Recorded Time 03/11/2022 text/html 56yo female here for evaluation of Cony, started 3mo ago. Sx of frequency, urgency and urge leakage, headache, nausea, dizziness, dysuria. Has not had a period since August 2021. 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
--- OUTSIDE RECORDS SUMMARY | 2024-09-27 20:27 | XMS_ITS | Encounter Summary ---
Author Organization [facility] Address [address] [place] [address]. [place] [address] Care Team Providers Care Steam Fitter Supervisor Name Role Phone Ailin Zavala MD Unavailable [phone] Martina Strickland PA-C Primary Care Provider Amadeo King MD Unavailable [phone] Joseph Trivedi MD Unavailable [phone] Rene Grant MD Unavailable [phone] Manju Perkins RN Unavailable Unavaila Martine Sr MD Unavailable [phone] Encounter Details Date Type Department Care Team (Late st Contact Info) Description 07/03/2024 [facility] Medical Advice [facility] [address] [place] [phone] Manju Perkins, RN Social History Tobacco [...] AM CDT 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:59 AM COSMETIC SALES ADVISOR Gender Identity Female 2019 10:10 AM CDT Sexual Orientation Straight 2019 10 :10 AM CDT documented as of this encounter Plan of Treatment Upcoming Encounters Date Type Department Care Team (Late st Contact Info) Description 09/29/2024 4:05 PM CDT Office Visit [facility] [address] [place] [phone] Martine Rios MD [address] [place], [place] [phone] 09/29/2024 5:30 PM CDT Ancillary Procedure [facility] [address] [facility] 1st [place] [phone] Martine Rios MD [address] [place], [place] [id number] 10/30/2024 3:00 PM CDT Office Visit [facility] [place] [id number] [facility] [address] [address] [place] [phone] Amadeo King MD [address] [facility] [address] [place], [place] [address] 12/05/2024 3:00 PM CDT Office Visit [facility] [address] [facility] [address] [place] [phone] Emma Deshpande MD [address] [facility] [address] [place], [place] [phone] documented as of this encounter Visit Diagnoses Not on filedocumented in this encounter Additional Health Concerns Infection Onset Date Last Indicated Resolved Time Rule Out C-difficile 07/11/2024 07/11/2024 025 11:41 PM COSMETIC SALES ADVISOR documented as of this encounter Care Teams Steam Fitter Supervisor Relationship Specialty Start Date End Date Martina Strickland PA-C PCP - General Physician Back Hand 07/19/19 Ailin Zavala MD Internal Medicine 07/28/11 Amadeo King MD [address] [id number] Ophthalmology 12/22/19 Joseph Trivedi MD [facility] [address] [place], [place] [phone] Rheumatology 05/21/20 Rene Grant MD [address] [place], [place] [phone] Assigned Surgical Provider 09/12/22 Manju Perkins RN Registered Nurse 05/24/24 Martine Rios MD [address] [place] [address] Assigned Nephrology Provider 07/02/24 documented as of this encounter
--- OUTSIDE RECORDS SUMMARY | 2024-09-27 20:27 | XMS_ITS | Encounter Summary ---
Author Organization [place] Address [address] [place] [address]. [place] [address] Care Team Providers Care Heavy Mobile Equipment Operator Name Role Phone Ailin Zavala MD Unavailable [phone] Martina Strickland PA-C Primary Care Provider Amadeo King MD Unavailable [phone] Joseph Trivedi MD Unavailable [phone] Rene Grant MD Unavailable [phone] Manju Perkins RN Unavailable Unavaila Martine Sr MD Unavailable [phone] Encounter Details Date Type Department Care Team (Late st Contact Info) Description 08/07/2024 [facility] Medical Advice [facility] [address] [place] [address] Manju Perkins, RN Social History Tobacco [...] AM CDT 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:59 AM 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 ALUMINUM BOAT ASSEMBLY Gender Identity Female 2019 10:10 AM CDT Sexual Orientation Straight 2019 10 :10 AM CDT documented as of this encounter Plan of Treatment Upcoming Encounters Date Type Department Care Team (Late st Contact Info) Description 09/29/2024 4:05 PM CDT Office Visit [facility] 909 [place] [phone] Martine Rios MD 500 [place], [place] [address]395 09/29/2024 5:30 PM CDT Ancillary Procedure [facility] 909 [facility] 1st [place] [phone] Martine Rios MD 500 [place], [place] [phone] 10/30/2024 3:00 PM CDT Office Visit [facility] [place] 595886 [facility] 9th Nh Clin 9A [place] [phone] Amadeo King MD 420 [facility] 493 [place], [place] 97[address] 12/05/2024 3:00 PM CDT Office Visit [facility] 516 [facility] 9th Nh Clin 9A [place] [phone] Emma Deshpande MD 516 [facility] [address] 911 [place], [place] [phone] documented as of this encounter Visit Diagnoses Not on filedocumented in this encounter Care Teams Heavy Mobile Equipment Operator Relationship Specialty Start Date End Date Martina Strickland PA-C PCP - General Physician Supervisor Looping 07/19/19 Ailin Zavala MD Internal Medicine 07/28/11 Amadeo King MD [address] [address] Ophthalmology 12/22/19 Joseph Trivedi MD [facility] [address] 215 [place], [place] 8[address]65 Rheumatology 05/21/20 Rene Grant MD 516 [place] [address] Assigned Surgical Provider 09/12/22 Manju Perkins, RN Registered Nurse 05/24/24 Martine Rios MD [address] [place] [address] Assigned Nephrology Provider 07/02/24 documented as of this encounter
--- OUTSIDE RECORDS SUMMARY | 2024-09-27 20:27 | XMS_ITS | Encounter Summary ---
Author Organization [place] Address [address] [place] [address]. [place] [address] Care Team Providers Care Evaluation Analyst Name Role Phone Ailin Zavala MD Unavailable [phone] Martina Strickland PA-C Primary Care Provider Amadeo King MD Unavailable [phone] Joseph Trivedi MD Unavailable [phone] Rene Grant MD Unavailable [phone] Manju Perkins RN Unavailable Unavaila Martine Sr MD Unavailable [phone] Encounter Details Date Type Department Care Team (Late st Contact Info) Description 07/27/2024 [facility] [place] [place] Medical Advice [facility] [address] [place] [address] Manju Perkins, RN Social History Tobacco [...] AM CDT 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:59 AM SOCIAL WELFARE ADMINISTRATOR Gender Identity Female 2019 10:10 AM CDT Sexual Orientation Straight 2019 10 :10 AM CDT documented as of this encounter Plan of Treatment Upcoming Encounters Date Type Department Care Team (Late st Contact Info) Description 09/29/2024 4:05 PM CDT Office Visit [facility] 909 [place] [phone] Martine Rios MD 500 [place], [place] 0[address]295 09/29/2024 5:30 PM CDT Ancillary Procedure [facility] 909 [facility] 1st [place] [phone] Martine Rios MD 500 [place], [place] [phone] 10/30/2024 3:00 PM CDT Office Visit [facility] [place] 065806 [facility] 9th Ks Clin 9A [place] [phone] Amadeo King MD 420 [facility] 493 [place], [place] [address] 12/05/2024 3:00 PM CDT Office Visit [facility] 516 [facility] 9th Ks Clin 9A [place] [phone] Emma Deshpande MD 516 [facility] [address] 911 [place], [place] [phone] documented as of this encounter Visit Diagnoses Not on filedocumented in this encounter Care Teams Evaluation Analyst Relationship Specialty Start Date End Date Martina Strickland PA-C PCP - General Physician Tooth Cutter 07/19/19 Ailin Zavala MD Internal Medicine 07/28/11 Amadeo King MD [address] [address] Ophthalmology 12/22/19 Joseph Trivedi MD [facility] [address] 215 [place], [place] 85[address] Rheumatology 05/21/20 Rene Grant MD 516 [place] [address] Assigned Surgical Provider 09/12/22 Manju Perkins, RN Registered Nurse 05/24/24 Martine Rios MD [address] [place] [address] Assigned Nephrology Provider 07/02/24 documented as of this encounter
--- OUTSIDE RECORDS SUMMARY | 2024-09-27 20:27 | XMS_ITS | Encounter Summary ---
Author Organization [place] Address [address] [place] [address]. [place] [address] Care Team Providers Care Security Representative Name Role Phone Ailin Zavala MD Unavailable [phone] Martina Strickland PA-C Primary Care Provider Amadeo King MD Unavailable [phone] Joseph Trivedi MD Unavailable [phone] Rene Grant MD Unavailable [phone] Manju Perkins RN Unavailable Unavaila Martine Sr MD Unavailable [phone] Encounter Details Date Type Department Care Team (Late st Contact Info) Description 08/18/2024 [facility] [address] [place] [address] Manju Perkins, RN Social History Tobacco [...] AM CDT 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 Gender Identity Female 2019 10:10 AM CDT Sexual Orientation Straight 2019 10 :10 AM CDT documented as of this encounter Plan of Treatment Upcoming Encounters Date Type Department Care Team (Late st Contact Info) Description 09/29/2024 4:05 PM CDT Office Visit [facility] 909 [place] [phone] Martine Rios MD 500 [place], [place] [address]255 09/29/2024 5:30 PM CDT Ancillary Procedure [facility] 909 [facility] 1st [place] [phone] Martine Rios MD 500 [place], [place] [phone] 10/30/2024 3:00 PM CDT Office Visit [facility] [place] 460156 [facility] 9th Mt Clin 9A [place] [phone] Amadeo King MD 420 [facility] 493 [place], [place] [address] 12/05/2024 3:00 PM CDT Office Visit [facility] 516 [facility] 9th Mt Clin 9A [place] [phone] Emma Deshpande MD 516 [facility] [address] 911 [place], [place] [phone] documented as of this encounter Visit Diagnoses Not on filedocumented in this encounter Care Teams Security Representative Relationship Specialty Start Date End Date Martina Strickland PA-C PCP - General Physician Costume Shop Coordinator 07/19/19 Ailin Zavala MD Internal Medicine 07/28/11 Amadeo King MD [address] [address] Ophthalmology 12/22/19 Joseph Trivedi MD [facility] [address] 215 [place], [place] 36[address] Rheumatology 05/21/20 Rene Grant MD 516 [place] [address] Assigned Surgical Provider 09/12/22 Manju Perkins, RN Registered Nurse 05/24/24 Martine Rios MD [address] [place] [address] Assigned Nephrology Provider 07/02/24 documented as of this encounter
--- OUTSIDE RECORDS SUMMARY | 2024-09-27 20:27 | XMS_ITS | Encounter Summary ---
Author Organization [place] Address [address] [place] [address] Care Team Providers Care Truck Terminal Manager Name Role Phone Ailin Zavala MD Unavailable Martina Strickland PA-C Primary Care Provider Amadeo King MD Unavailable [phone] Joseph Trivedi MD Unavailable [phone] Rene Grant MD Unavailable [phone] Manju Perkins RN Unavailable Unavaila Martine Sr MD Unavailable Reason for Visit * Reason Onset Date Comments Appointment 09/07/2023 2-3 week follow up Encounter Details Date Type Department Care Team (Late st Contact Info) Description 09/07/2023 Telephone [facility] 516 [facility] 9th Pa Clin 9A [place] [phone] Amadeo King MD 420 [facility] 493 [place] [address] Appointment (2-3 week follow up) Social History [...] AM CDT 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 Gender Identity Female 2019 10:10 AM CDT Sexual Orientation Straight 2019 10 :10 AM CDT documented as of this encounter Miscellaneous Notes * Telephone Encounter - Callie Norwood - 09/07/2023 11:22 AM CDT [facility] Call Center Phone Message May [...] Description 09/29/2024 4:05 PM CDT Office Visit [facility] [address] [place] [phone] Martine Rios MD [address] [place] [address] 09/29/2024 5:30 PM CDT Ancillary Procedure [facility] [address] 1st [place] [address] Martine Rios MD 500 [place], [place] [address]325 10/30/2024 3:00 PM CDT Office Visit [facility] 516 [facility] 9th [facility] 9A [place] [phone] Amadeo King MD 420 [facility] 493 [place], [place] [address] 12/05/2024 3:00 PM CDT Office Visit [place] [address]136 [facility] 9[facility] 9A [place] [phone] Emma Deshpande MD [address] [place] [address] 911 [place], [place] 264675 documented as of this encounter Visit Diagnoses Not on filedocumented in this encounter Additional Health Concerns Infection Onset Date Last Indicated Resolved Time Rule Out C-difficile 07/11/2024 07/11/2024 025 11:41 PM LAYDOWN MACHINE OPERATOR documented as of this encounter Care Teams Truck Terminal Manager Relationship Specialty Start Date End Date Martina Strickland PA-C PCP - General Physician Chief Telephone Operator 07/19/19 Ailin Zavala MD Internal Medicine 07/28/11 Amadeo King MD 420 [facility] 493 [place], [place] [address]25 Ophthalmology 12/22/19 Joseph Trivedi MD [facility] [address] [facility] 215 [place] [address] Rheumatology 05/21/20 Rene Grant MD [address] [place] [address] Assigned Surgical Provider 09/12/22 Manju Perkins RN Registered Nurse 05/24/24 Martine Rios MD [address] [place] [address] Assigned Nephrology Provider 07/02/24 documented as of this encounter
--- OUTSIDE RECORDS SUMMARY | 2024-09-27 20:27 | XMS_ITS | Encounter Summary ---
Author Organization [place] Address [address] [place] [address] Care Team Providers Care Air Cargo Agent Name Role Phone Sally Ailin Hebert MD Unavailable [phone] Martina Strickland PA-C Primary Care Provider Amadeo [...] Care Team (Late st Contact Info) Description 11/27/2019 Telephone [facility] Eye [facility] 516 [facility] 9th Fl Clin 9A [place] [address] Amadeo King MD 420 [facility] 493 [place] [address] Appointment (Appt with Dr King) Social History [...] AM CDT 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 Gender Identity Female 2019 10:10 AM CDT [...] Tania Marin - 11/27/2019 8:58 AM CDT [facility] Call [...] Description 09/29/2024 4:05 PM CDT Office Visit [facility] Trans[facility] Clinic 909 [place] [phone] Martine Rios MD 500 [place], [place] [phone] 09/29/2024 5:30 PM CDT Ancillary Procedure [facility] 909 [facility] 1st [place] [phone] Martine Rios MD 500 [place], [place] [phone] 10/30/2024 3:00 PM CDT Office Visit [facility] [place] 692346 [facility] 9th Nv Clin 9A [place] [phone] Amadeo King MD 420 [facility] 493 [place], [place] [address] 12/05/2024 3:00 PM CDT Office Visit [facility] Eye [facility] [place] 692346 [facility] 9th Nv Clin 9A [place] [phone] Emma Deshpande MD 516 [facility] [address] 911 [place] [address] documented as of this encounter Visit Diagnoses Not on filedocumented in this encounter Additional Health Concerns Infection Onset Date Last Indicated Resolved Time Rule Out C-difficile 07/11/2024 07/11/2024 025 11:41 PM WELLNESS CONSULTANT documented as of this encounter Care Teams Air Cargo Agent Relationship Specialty Start Date End Date Martina Strickland PA-C PCP - General Physician Product Safety Administrator 07/19/19 Ailin Zavala MD Internal Medicine 07/28/11 Amadeo King MD [address] [place] [address] 136585 Ophthalmology 12/22/19 Claudia Marcus MD [facility] EYE [facility] [address] [phone] Assigned Surgical Provider 03/01/20 05/25/20 Amadeo King MD [address] [place] [address] 240425 Assigned PCP 04/07/20 06/02/23 Joseph Trivedi MD [facility] [address] [place] [address] [address] 2779[address] Rheumatology 05/21/20 Claudia Marcus MD [facility] EYE [facility] [address] [place] [phone] Assigned Surgical Provider 06/30/20 10/19/20 Emma Deshpande MD [address] [place] [address] 950975 Assigned Surgical Provider 05/26/20 06/29/20 Kishan Spain, OD [address] [place] [phone] Assigned Surgical Provider 10/20/20 11/23/20 Emma Deshpande MD [address] [place] [address] 027915 Assigned Surgical Provider 11/24/20 12/07/20 Kishan Spain, OD [address] [place] [phone] Assigned Surgical Provider 12/08/20 03/27/22 Emma Deshpande MD [address] [place] [address] 138975 Assigned Surgical Provider 03/28/22 04/03/22 Rene Grant MD [address] [place] [address] Assigned Surgical Provider 04/04/22 08/21/22 Amadeo Winston MD [address] [place] [address] Assigned Surgical Provider 08/22/22 08/28/22 Amadeo Winston MD [address] [place] [address] Assigned Surgical Provider 09/05/22 09/11/22 Rene Grant MD [address] [place] [address] 375695 Assigned Surgical Provider 08/29/22 09/04/22 Rene Grant MD [address] [place] [address] 132785 Assigned Surgical Provider 09/12/22 Manju Perkins, JENNIFER Registered Nurse 05/24/24 Martine Rios MD [address] [place] [address] [phone] Assigned Nephrology Provider 07/02/24 documented as of this encounter
--- OUTSIDE RECORDS SUMMARY | 2024-09-27 20:27 | XMS_ITS | Encounter Summary ---
Author Organization [place] Address [address] [place] [address] Care Team Providers Care Digital Performance Analyst Name Role Phone Sally Ailin Hebert MD Unavailable [phone] Martina Strickland PA-C Primary Care Provider Amadeo [...] RN Unavailable Unavaila Martine Sr MD Unavailable [phone] Reason for Visit * Reason Onset Date Comments Medication Question 01/22/2020 Encounter Details Date Type Department Care Team (Late st Contact Info) Description 01/22/2020 [facility] Eye 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 [address] And [facility] What on the order needs clarification? Pt is running low. Cyclosporine should be sent to [facility] pharmacy. The other two rx should go to pharmacy above. Action Taken: Other: eye Travel Screening: Not Applicable documented in this encounter Plan of Treatment Upcoming Encounters Date Type Department Care Team (Late st Contact Info) Description 09/29/2024 4:05 PM CDT Office Visit [facility] [address] [place] [phone] Martine Rios MD 500 [place], [place] 450725 09/29/2024 5:30 PM CDT Ancillary Procedure [facility] 909 [facility] 1st [place] [phone] Martine Rios MD 500 [place], [place] 832215 10/30/2024 3:00 PM CDT Office Visit [facility] Eye [facility] [place] 597756 [facility] 9A [place] [phone] Amadeo King MD [address] [address] 12/05/2024 3:00 PM CDT Office Visit [facility] Eye [facility] - [address] 9th Dc Clin 9A [place] [phone] Emma Deshpande MD 516 [facility] 911 [place], [place] 422685 documented as of this encounter Visit Diagnoses Not on filedocumented in this encounter Additional Health Concerns Infection Onset Date Last Indicated Resolved Time Rule Out C-difficile 07/11/2024 07/11/2024 025 11:41 PM BELL MAKER documented as of this encounter Care Teams Digital Performance Analyst Relationship Specialty Start Date End Date Martina Strickland PA-C PCP - General Physician Resist Coater Developer 07/19/19 Ailin Zavala MD Internal Medicine 07/28/11 Amadeo King MD [address] [place] [address] Ophthalmology 12/22/19 Claudia Marcus MD [facility] [place] [address] [place] [phone] Assigned Surgical Provider 03/01/20 05/25/20 Amadeo King MD [address] [place] [address] Assigned PCP 04/07/20 06/02/23 Joseph Trivedi MD [facility] [address] [facility] [address] [place] [address] Rheumatology 05/21/20 Claudia Marcus MD [facility] [place] 6042433 [address] [place] [phone] Assigned Surgical Provider 06/30/20 10/19/20 Emma Deshpande MD [address] [place] [address] Assigned Surgical Provider 05/26/20 06/29/20 Kishan Spain, OD [address] [place] [phone] Assigned Surgical Provider 10/20/20 11/23/20 Emma Deshpande MD [address] [place] [address] 283805 Assigned Surgical Provider 11/24/20 12/07/20 Kishan Spain, OD [address] [place] [phone] Assigned Surgical Provider 12/08/20 03/27/22 Emma Deshpande MD [address] [place] [address] 595935 Assigned Surgical Provider 03/28/22 04/03/22 Rene Grant MD [address] [place] [address] 869835 Assigned Surgical Provider 04/04/22 08/21/22 Amadeo Winston MD [address] [place] [address] 442245 Assigned Surgical Provider 08/22/22 08/28/22 Amadeo Winston MD [address] [place] [address] [phone] Assigned Surgical Provider 09/05/22 09/11/22 Rene Grant MD [address] [place] [address] 026665 Assigned Surgical Provider 08/29/22 09/04/22 Rene Grant MD [address] [place] [address] 420915 Assigned Surgical Provider 09/12/22 Manju Perkins RN Registered Nurse 05/24/24 Martine Rios MD [address] [place] [address] [phone] Assigned Nephrology Provider 07/02/24 documented as of this encounter
--- OUTSIDE RECORDS SUMMARY | 2024-09-27 20:27 | XMS_ITS | Encounter Summary ---
Author Organization [place] Address [address] [place] [address] Care Team Providers Care Sample Cutter Name Role Phone Ailin Zavala MD Unavailable [phone] Martina Strickland PA-C Primary Care Provider Amadeo King MD Unavailable [phone] Joseph Trivedi MD Unavailable [phone] [facility] MD Unavailable [phone] Manju Perkins RN Unavailable Unavaila Martine Sr MD Unavailable [phone] Encounter Details Date Type Department Care Team (Late st Contact Info) Description 06/05/2024 Orders Only [facility] 420 [place] [address] Outside, Provider Social History Tobacco Use Types Packs/Day Years [...] AM CDT 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 Transplant Clinic 9 [place] [phone] Martine Rios MD 500 [place], [place] 6[address] 09/29/2024 5:30 PM CDT Ancillary Procedure [facility] 909 [facility] 1st [place] [phone] Martine Rios MD 500 [place], [place] [phone] 10/30/2024 3:00 PM CDT Office Visit [facility] - [place] 642226 [facility] 9th Ri Clin 9A [place] [phone] Amadeo King MD 420 [facility] 493 [place], [place] 4[address] 12/05/2024 3:00 PM CDT Office Visit [facility] Eye [facility] [place] 642226 [facility] 9th Ri Clin 9A [place] [phone] Emma Deshpande MD 516 [facility] [address] 911 [place], [place] 5549[address] documented as of this encounter Procedures Procedure Name Priority Date/Time Associated Diagnosis Comments HLA RESULT REPORT 06/05/2024 11:54 AM MOLD BLOWER EKG CARDIAC - HIM SCAN 06/05/2024 12:00 AM MOLD BLOWER documented in this encounter Results * HLA Result Report (06/05/2024 11:54 AM MOLD BLOWER) us Provider Outside LAB - IMMUNOLOGY ORDERABLES Fin al Result * EKG Cardiac - HIM Scan (06/05/2024 12:00 AM MOLD BLOWER) 06/05/2024 us Provider Outside ECG ORDERABLES Final Result documented in this encounter Visit Diagnoses Not on filedocumented in this encounter Additional Health Concerns Infection Onset Date Last Indicated Resolved Time Rule Out C-difficile 07/11/2024 07/11/2024 025 11:41 PM MOLD BLOWER documented as of this encounter Care Teams Sample Cutter Relationship Specialty Start Date End Date Martina Strickland PA-C PCP - General Physician Cleaner Operator 07/19/19 Ailin Zavala MD Internal Medicine 07/28/11 Amadeo King MD [address] [place] [address] 438255 Ophthalmology 12/22/19 Joseph Trivedi MD [facility] [address] [place], [place] [address] Rheumatology 05/21/20 Rene Grant MD [address] [place] [address] 930465 Assigned Surgical Provider 09/12/22 Manju Perkins, JENNIFER Registered Nurse 05/24/24 Martine Rios MD [address] [place] [address] 456285 Assigned Nephrology Provider 07/02/24 documented as of this encounter
--- OUTSIDE RECORDS SUMMARY | 2024-09-27 20:27 | XMS_ITS | Encounter Summary ---
Author Organization [place] Address [address] [place] [address]. [place] [address] Care Team Providers Care Job Setter Name Role Phone Ailin Zavala MD Unavailable [phone] Martina Strickland PA-C Primary Care Provider Amadeo King MD Unavailable [phone] Joseph Trivedi MD Unavailable [phone] Rene Grant MD Unavailable [phone] Manju Perkins RN Unavailable Unavaila Martine Sr MD Unavailable [phone] Encounter Details Date Type Department Care Team (Late st Contact Info) Description 07/07/2024 MyC Medical Advice [facility] [address] [place] [address] Manju Perkins, RN Diarrhea (Primary Dx) Social History Tobacco Use Types [...] AM CDT 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 909 [facility] 1st [place] [phone] Martine Rios MD 500 [place], [place] [phone] 10/30/2024 3:00 PM CDT Office Visit [facility] [place] 141446 [facility] 9th Ms Clin 9A [place] [phone] Amadeo King MD 420 [facility] 493 [place], [place] [address] 12/05/2024 3:00 PM CDT Office Visit [facility] [place] 141446 [facility] 9th Ms Clin 9A [place] [phone] Emma Deshpande MD 516 [facility] [address] 911 [place], [place] 4[address] Scheduled Orders Name Type Priority Associated Diagnoses Orde r Schedule C. difficile Toxin B PCR with reflex to C. difficile EIA Microbiology Routine Diarrhea Expected: 07/10/2024 (Approximate), Expires: 08/09/2024 documented as of this encounter Results * Enteric Bacteria and Virus Panel by BERTA Stool (07/12/2024 6:30 AM WINDING RACK OPERATOR) Campylobacter species Negative Negative 07/13/2024 4:11 PM WINDING RACK OPERATOR [facility] Salmonella species Negative Negative 2024 4:11 PM WINDING RACK OPERATOR [facility] Vibrio species Negative Negative 07/13/2024 4:11 PM WINDING RACK OPERATOR [facility] Vibrio cholerae Negative Negative 4:11 PM WINDING RACK OPERATOR [facility] Yersinia enterocolitica Negative Negative 07/13/2024 4:11 PM WINDING RACK OPERATOR [facility] Enteropathogenic E. coli (EPEC) Negative Negative, NA 07/13/2024 4:11 PM WINDING RACK OPERATOR [facility] Shiga-like toxin-producing E. coli (STEC) Negative Negative 07/13/2024 4:11 PM WINDING RACK OPERATOR [facility] Shigella/Enteroinvas kassidy E. coli (EIEC) Negative Negative 07/13/2024 4:11 PM WINDING RACK OPERATOR [facility] Cryptosporidium species Negative Negative 07/13/2024 4:11 PM WINDING RACK OPERATOR [facility] Giardia lamblia Negative Negative 4:11 PM WINDING RACK OPERATOR [facility] Norovirus Gl/Gll Negative Negative 07/14/19 4:11 PM WINDING RACK OPERATOR [facility] Rotavirus A Negative Negative 07/13/2024 4:11 PM WINDING RACK OPERATOR [facility] Plesiomonas shigelloides Negative Negative 07/13/2024 4:11 PM WINDING RACK OPERATOR [facility] Enteroaggregative E. coli (EAEC) Negative Negative 07/13/2024 4:11 PM WINDING RACK OPERATOR [facility] Enterotoxigenic E. coli (ETEC) Negative Negative 07/13/2024 4:11 PM WINDING RACK OPERATOR [facility] E. coli O157 NA Negative, NA 07/13/2024 4:11 PM WINDING RACK OPERATOR [facility] Cyclospora cayetanensis Negative Negative 07/13/2024 4:11 PM WINDING RACK OPERATOR [facility] Entamoeba histolytica Negative Negative 07/13/2024 4:11 PM WINDING RACK OPERATOR [facility] Adenovirus F40/41 Negative Negative 025 4:11 PM WINDING RACK OPERATOR [facility] Astrovirus Negative Negative 07/13/2024 4:11 PM WINDING RACK OPERATOR [facility] Sapovirus Negative Negative 07/13/2024 4:11 PM WINDING RACK OPERATOR [facility] Stool RECTAL CONTENTS / Unknown Non-blood Collection / Unknown 07/12/2024 6:30 AM WINDING RACK OPERATOR 07/12/2024 3:12 PM WINDING RACK OPERATOR Narrative [facility] - 07/13/2024 4:11 PM WINDING RACK OPERATOR Assay performed using the FDA-cleared Poke[employer] CallArray GI Panel from [employer] A negative result should not rule [...] ORDERABL ES Final Result [facility] Inf. Diseases Diag. Lab 500 [facility], [address] [place] [address], [facility] * CMV Quantitative, PCR (Blood) (07/10/2024 5:33 PM WINDING RACK OPERATOR) CMV DNA IU/mL Not Detected Not Detected IU/mL 07/11/2024 10:48 AM WINDING RACK OPERATOR [facility] CMV Quantitative PCR Specimen Type Blood 07/11/2024 10:48 AM WINDING RACK OPERATOR [facility] Blood STRUCTURE OF LEFT UPPER LIMB / Unknown Venipuncture / Unknown 07/10/2024 5:33 PM WINDING RACK OPERATOR 07/10/2024 5:33 PM WINDING RACK OPERATOR Narrative [facility] - 07/11/2024 10:48 AM WINDING RACK OPERATOR The armando CMV assay is a FDA-approved [...] ORDERABL ES Final Result [facility] Inf. Diseases Diag. Lab 500 [facility], [address] [place] [address] documented in this encounter Visit Diagnoses Diagnosis Diarrhea- Primary documented in this encounter Additional Health Concerns Infection Onset Date Last Indicated Resolved Time Rule Out C-difficile 07/11/2024 07/11/2024 025 11:41 PM WINDING RACK OPERATOR documented as of this encounter Care Teams Job Setter Relationship Specialty Start Date End Date Martina Strickland PA-C PCP - General Physician Cloth Desizing Range Tender 07/19/19 Ailin Zavala MD Internal Medicine 07/28/11 Amadeo King MD [address] [place] [address]65[address] Ophthalmology 12/22/19 Joseph Trivedi MD [facility] [address] [place], [place] [address] Rheumatology 05/21/20 Rene Grant MD [address] [place] [address] 146105 Assigned Surgical Provider 09/12/22 Manju Perkins, JENNIFER Registered Nurse 05/24/24 Martine Rios MD [address] [place] [address] 574105 Assigned Nephrology Provider 07/02/24 documented as of this encounter
--- OUTSIDE RECORDS SUMMARY | 2024-09-27 20:27 | XMS_ITS | Encounter Summary ---
Author Organization [place] Address [address] [place] [address]. [place] [address] Care Team Providers Care Collection Card Clerk Name Role Phone Ailin Zavala MD Unavailable [phone] Martina Strickland PA-C Primary Care Provider Amadeo King MD Unavailable [phone] Joseph Trivedi MD Unavailable [phone] Rene Grant MD Unavailable Manju Perkins RN Unavailable Unavaila Martine Sr MD Unavailable Reason for Visit * Reason Onset Date Comments Medication Question 04/19/2024 Results 04/19/2024 Encounter Details Date Type Department Care Team (Late st Contact Info) Description 04/19/2024 Telephone [facility] 516 [facility] 9th Al Clin 9A [place] [phone] Amadeo King MD 420 [facility] 493 [place] [address] Medication Question; Results Social History Tobacco Use Types Packs/Day Years [...] AM CDT 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:59 AM 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 Insurance will no longer cover the insuline drops and patient states it's $90 for the drops. Patient states she is currently out of the insuline drops and isn'tsure what she is supposed to do for now Action Taken: Message routed [facility] eye Travel Screening: Not Applicable Date of Service: EF CAPTAIN documented in this encounter Plan of Treatment Upcoming Encounters Date Type Department Care Team (Late st Contact Info) Description 09/29/2024 4:05 PM CDT Office Visit [facility] [address] [place] [address] Martine Rios MD [address] [place] [id number] 09/29/2024 5:30 PM CDT Ancillary Procedure [address] 1st [place] [phone] Martine Rios MD 500 [place], [place] 6[address] 10/30/2024 3:00 PM CDT Office Visit [facility] Eye [facility] [place] 732456 [facility] 9[facility] 9A [place] [phone] Amadeo King MD 420 [facility] 493 [place], [place] [address] 12/05/2024 3:00 PM CDT Office Visit [facility] - [address] 9[facility] 9A [place] [phone] Emma Deshpande MD [address] [place] [address] 911 [place], [place] 213055 documented as of this encounter Visit Diagnoses Not on filedocumented in this encounter Additional Health Concerns Infection Onset Date Last Indicated Resolved Time Rule Out C-difficile 07/11/2024 07/11/2024 025 11:41 PM RELIEF CAPTAIN documented as of this encounter Care Teams Collection Card Clerk Relationship Specialty Start Date End Date Martina Strickland PA-C PCP - General Physician Puppet Maker 07/19/19 Ailin Zavala MD Internal Medicine 07/28/11 Amadeo King MD 420 [facility] 493 [place], [place] [address] Ophthalmology 12/22/19 Joseph Trivedi MD [facility] [address] [place], [place] [address] Rheumatology 05/21/20 Rene Grant MD [address] [place] [address] 672335 Assigned Surgical Provider 09/12/22 Manju Perkins, JENNIFER Registered Nurse 05/24/24 Martine Rios MD [address] [place] [address] Assigned Nephrology Provider 07/02/24 documented as of this encounter
--- OUTSIDE RECORDS SUMMARY | 2024-09-27 20:27 | XMS_ITS | Encounter Summary ---
Author Organization [place] Address [address] [place] [address] Care Team Providers Care Predatory Animal Trapper Name Role Phone Ailin Zavala MD Unavailable [phone] Martina Strickland PA-C Primary Care Provider Amadeo King MD Unavailable [phone] Joseph Trivedi MD Unavailable [phone] Rene Grant MD Unavailable [phone] Manju Perkins RN Unavailable Unavaila Martine Sr MD Unavailable [phone] Encounter Details Date Type Department Care Team (Late st Contact Info) Description 05/17/2024 [facility] [address] Clin 9A [place] [address] Roseline Zamora Social History Tobacco Use Types [...] AM CDT 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 Gender Identity Female 2019 10:10 AM CDT Sexual Orientation Straight 2019 10 :10 AM CDT documented as of this encounter Plan of Treatment Upcoming Encounters Date Type Department Care Team (Late st Contact Info) Description 09/29/2024 4:05 PM CDT Office Visit [facility] 909 [place] [phone] Martine Rios MD 500 [place], [place] [address] 09/29/2024 5:30 PM CDT Ancillary Procedure [facility] 909 [facility] 1st [place] [phone] Martine Rios MD 500 [place], [place] [address] 10/30/2024 3:00 PM CDT Office Visit [facility] 516 [facility] 9th N[place] Clin 9A [place] [address] Amadeo King MD 420 [facility] 493 [place], [place] [address] 12/05/2024 3:00 PM CDT Office Visit [facility] 516 [facility] 9th [facility] 9A [place] [phone] Emma Deshpande MD 516 [facility] [address] 911 [place] [address] documented as of this encounter Visit Diagnoses Not on filedocumented in this encounter Additional Health Concerns Infection Onset Date Last Indicated Resolved Time Rule Out C-difficile 07/11/2024 07/11/2024 025 11:41 PM PLUMBER MAINTENANCE documented as of this encounter Care Teams Predatory Animal Trapper Relationship Specialty Start Date End Date Martina Strickland PA-C PCP - General Physician Dockworker 07/19/19 Ailin Zavala MD Internal Medicine 07/28/11 Amadeo King MD 420 [facility] 493 [place], [place] [phone] Ophthalmology 12/22/19 Joseph Trivedi MD [facility] [address] [address] Rheumatology 05/21/20 Rene Grant MD 6 [place] [address] Assigned Surgical Provider 09/12/22 Manju Perkins, JENNIFER Registered Nurse 05/24/24 Martine Rios MD [address] [place] [address] Assigned Nephrology Provider 07/02/24 documented as of this encounter
--- OUTSIDE RECORDS SUMMARY | 2024-09-27 20:28 | XMS_ITS | Encounter Summary ---
Author Organization [place] Address [address] [place] [address] Care Team Providers Care Insulation Sprayer Name Role Phone Ailin Zavala MD Unavailable [phone] Martina Strickland PA-C Primary Care Provider Amadeo King MD Unavailable [phone] Joseph Trivedi MD Unavailable [phone] [facility] Unavailable [phone] Manju Perkins RN Unavailable Unavaila Martine Sr MD Unavailable [phone] Encounter Details Date Type Department Care Team (Late st Contact Info) Description 06/28/2024 Orders Only [facility] 420 [place] [address] Outside, Provider Social History Tobacco Use Types [...] CDT 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 Gender Identity Female 2019 10:10 AM CDT Sexual Orientation Straight 2019 10 :10 AM CDT documented as of this encounter Plan of Treatment Upcoming Encounters Date Type Department Care Team (Late st Contact Info) Description 09/29/2024 4:05 PM CDT Office Visit [facility] Clinic 9 [place] [phone] Martine Rios MD 500 [place], [place] [address] 09/29/2024 5:30 PM CDT Ancillary Procedure [facility] 909 [facility] 1st [place] [phone] Martine Rios MD 500 [place], [place] [phone] 10/30/2024 3:00 PM CDT Office Visit [facility] [place] 494076 [facility] 9th Sd Clin 9A [place] [phone] Amadeo King MD 420 [facility] 493 [place], [place] [address] 12/05/2024 3:00 PM CDT Office Visit [facility] Eye [facility] [place] 494076 [facility] 9th Sd Clin 9A [place] [phone] Emma Deshpande MD 516 [facility] [address] 911 [place], [place] [address] documented as of this encounter Procedures Procedure Name Priority Date/Time Associated Diagnosis Comments HLA RESULT REPORT 06/28/2024 1:23 PM SUPERVISOR BLOOMING MILL documented in this encounter Results * HLA Result Report (06/28/2024 1:23 PM SUPERVISOR BLOOMING MILL) us Provider Outside LAB - IMMUNOLOGY ORDERABLES Fin al Result documented in this encounter Visit Diagnoses Not on filedocumented in this encounter Additional Health Concerns Infection Onset Date Last Indicated Resolved Time Rule Out C-difficile 07/11/2024 07/11/2024 025 11:41 PM SUPERVISOR BLOOMING MILL documented as of this encounter Care Teams Insulation Sprayer Relationship Specialty Start Date End Date Martina Strickland PA-C PCP - General Physician Pack Out Operator 07/19/19 Ailin Zavala MD Internal Medicine 07/28/11 Amadeo King MD [address] [phone] Ophthalmology 12/22/19 Joseph Trivedi MD [facility] [address] [place], [place] 3[address] Rheumatology 05/21/20 Rene Grant MD 516 [place] [address] Assigned Surgical Provider 09/12/22 Manju Perkins, JENNIFER Registered Nurse 05/24/24 Martine Rios MD [address] [place] [address] Assigned Nephrology Provider 07/02/24 documented as of this encounter
--- OUTSIDE RECORDS SUMMARY | 2024-09-27 20:28 | XMS_ITS | Encounter Summary ---
Author Organization [place] Address [address] [place] [address]. [place] [address] Care Team Providers Care Straight Ruling Machine Operator Name Role Phone Ailin Zavala MD Unavailable [phone] Martina Strickland PA-C Primary Care Provider Amadeo King MD Unavailable [phone] Joseph Trivedi MD Unavailable [phone] Rene Grant MD Unavailable [phone] Manju Perkins RN Unavailable Unavaila Martine Sr MD Unavailable [phone] Encounter Details Date Type Department Care Team (Late st Contact Info) Description 08/24/2024 Orders Only [facility] Transplant Clinic 9 [place] [address] Manju Perkins, RN Alessandro (Primary Dx) Social History Tobacco Use Types [...] AM CDT 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 Gender Identity Female 2019 10:10 AM CDT Sexual Orientation Straight 2019 10 :10 AM CDT documented as of this encounter Plan of Treatment Upcoming Encounters Date Type Department Care Team (Late st Contact Info) Description 09/29/2024 4:05 PM CDT Office Visit [facility] [address] [place] [phone] Martine Rios MD 500 [place], [place] [address] 09/29/2024 5:30 PM CDT Ancillary Procedure [facility] 909 [facility] 1st [place] [phone] Martine Rios MD 500 [place], [place] [phone] 10/30/2024 3:00 PM CDT Office Visit [facility] Eye [facility] [place] 247676 [facility] 9th Sd Clin 9A [place] [phone] Amadeo King MD 420 [facility] 493 [place], [place] [address] 12/05/2024 3:00 PM CDT Office Visit [facility] [place] 247676 [facility] 9th Sd Clin 9A [place] [phone] Emma Deshpande MD 516 [facility] [address] 911 [place], [place] [address] documented as of this encounter Visit Diagnoses Diagnosis Thrush- Primary Candidiasis of mouth documented in this encounter Care Teams Straight Ruling Machine Operator Relationship Specialty Start Date End Date Martina Strickland PA-C PCP - General Physician Ui Software Engineer 07/19/19 Ailin Zavala MD Internal Medicine 07/28/11 Amadeo King MD [address] [phone] Ophthalmology 12/22/19 Joseph Trivedi MD [facility] [address] [place], [place] 63[address] Rheumatology 05/21/20 Rene Grant MD 6 [place] [address] Assigned Surgical Provider 09/12/22 Manju Perkins, JENNIFER Registered Nurse 05/24/24 Martine Rios MD [address] [place] [address] Assigned Nephrology Provider 07/02/24 documented as of this encounter
--- OUTSIDE RECORDS SUMMARY | 2024-09-27 20:28 | XMS_ITS | Encounter Summary ---
Author Organization [place] Address [address] [place] [address]. [place] [address] Care Team Providers Care Insulation Cupola Operator Name Role Phone Ailin Zavala MD Unavailable [phone] Martina Strickland PA-C Primary Care Provider Amadeo King MD Unavailable [phone] Joseph Trivedi MD Unavailable [phone] Rene Grant MD Unavailable [phone] Manju Perkins RN Unavailable Unavaila Martine Sr MD Unavailable [phone] Encounter Details Date Type Department Care Team (Late st Contact Info) Description 09/18/2024 Telephone [facility] Transplant Clinic 909 [place] [address] Manju Perkins, RN Social History [...] AM CDT 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 Rios, in light of labs stable on 09/13, will start lasix 20mg daily x7 days. Repeat labs 2 days after starting lasix. Rx sent to local [facility]. documented in this encounter Plan of Treatment Upcoming Encounters Date Type Department Care Team (Late st Contact Info) Description 09/29/2024 4:05 PM CDT Office Visit [facility] Transplant Clinic [address] [place] [phone] Martine Rios MD 500 [place], [place] 5932[address] 09/29/2024 5:30 PM CDT Ancillary Procedure [place] 294789 [facility] 1st [place] [phone] Martine Rios MD 500 [place], [place] [address] 10/30/2024 3:00 PM CDT Office Visit [facility] Eye Clinic [place] 905456 [facility] 9th Fl Clin 9A [place] [phone] Amadeo King MD [address] 2398[address] 12/05/2024 3:00 PM CDT Office Visit [facility] Eye [facility] Emergency Department 516 [facility] 9th Fl Clin 9A [place] [address] Emma Deshpande MD 516 [facility] [address] 911 [place], [place] [address] documented as of this encounter Visit Diagnoses Diagnosis Fluid retention in legs- Primary Edema documented in this encounter Care Teams Insulation Cupola Operator Relationship Specialty Start Date End Date Martina Strickland PA-C PCP - General Physician Silk Screen Etcher 07/19/19 Ailin Zavala MD Internal Medicine 07/28/11 Amadeo King MD 420 [facility] 493 [place], [place] [address] Ophthalmology 12/22/19 Joseph Trivedi MD [facility] [address] [facility] 215 [place], [place] [address] Rheumatology 05/21/20 Rene Grant MD [address] [place] [address] Assigned Surgical Provider 09/12/22 Manju Perkins, JENNIFER Registered Nurse 05/24/24 Martine Rios MD 500 [place], [place] [address] Assigned Nephrology Provider 07/02/24 documented as of this encounter
--- OUTSIDE RECORDS SUMMARY | 2024-09-27 20:28 | XMS_ITS | Encounter Summary ---
Author Organization [facility] Address [address] [place] [address] Care Team Providers Care Improvement Analyst Name Role Phone Ailin Zavala MD Unavailable [phone] Martina Srtickland PA-C Primary Care Provider Amadeo King MD Unavailable [phone] Joseph Trivedi MD Unavailable [phone] Rene Grant MD Unavailable [phone] Manju Perkins RN Unavailable Unavaila Martine Sr MD Unavailable [phone] Encounter Details Date Type Department Care Team (Late st Contact Info) Description 06/19/2024 [facility] [address] [place] [address] Manju Perkins, RN Social History Tobacco [...] AM CDT 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 909 [facility] 1st [place] [phone] Matrine Rios MD 500 [place], [place] [address] 10/30/2024 3:00 PM CDT Office Visit [facility] 516 [facility] 9th Ga Clin 9A [place] [address] Amadeo King MD 420 [facility] 493 [place], [place] [address] 12/05/2024 3:00 PM CDT Office Visit [facility] 516 [facility] 9th [facility] 9A [place] [phone] Emma Deshpande MD 516 [facility] [address] 911 [place], [place] [address] documented as of this encounter Visit Diagnoses Not on filedocumented in this encounter Additional Health Concerns Infection Onset Date Last Indicated Resolved Time Rule Out C-difficile 07/11/2024 07/11/2024 025 11:41 PM JUDGE CLERK documented as of this encounter Care Teams Improvement Analyst Relationship Specialty Start Date End Date Martina Strickland PA-C PCP - General Physician Hydraulic Miner Blasting 07/19/19 Ailin Zavala MD Internal Medicine 07/28/11 Amadeo King MD [address] [address] Ophthalmology 12/22/19 Joseph Trivedi MD [facility] [address] 215 [place] [address] Rheumatology 05/21/20 Rene Grant MD 516 [place] [address] Assigned Surgical Provider 09/12/22 Manju Perkins, JENNIFER Registered Nurse 05/24/24 Martine Rios MD [address] [place] [address] Assigned Nephrology Provider 07/02/24 documented as of this encounter
--- OUTSIDE RECORDS SUMMARY | 2024-09-27 20:28 | XMS_ITS | Encounter Summary ---
Author Organization [facility] Address [address] [place] [address]. 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 Gender Identity Female 2019 10:10 AM CDT Sexual Orientation Straight 2019 10 :10 AM CDT documented as of this encounter Plan of Treatment Upcoming Encounters Date Type Department Care Team (Late st Contact Info) Description 09/29/2024 4:05 PM CDT Office Visit [facility] Trans[facility] Clinic 9 [place] [phone] Martine Rios MD 500 [place], [place] [address] 09/29/2024 5:30 PM CDT Ancillary Procedure [facility] 909 [facility] 1st [place] [phone] Martine Rios MD 500 [place], [place] [address]85 10/30/2024 3:00 PM CDT Office Visit [facility] Eye [facility] 516 [facility] 9th In Clin 9A [place] [phone] Amadeo King MD 420 [facility] 493 [place], [place] [address] 12/05/2024 3:00 PM CDT Office Visit [facility] Eye [facility] 516 [facility] 9th In Clin 9A [place] [phone] Emma Deshpande MD 516 [facility] 911 [place], [place] [address] documented as of this encounter Visit Diagnoses Not on filedocumented in this encounter Care Teams Telegraph Mechanic Relationship Specialty Start Date End Date Martina Strickland PA-C PCP - General Physician Hat Block Maker 07/19/19 Ailin Zavala MD Internal Medicine 07/28/11 Amadeo Kign MD [address] [address] Ophthalmology 12/22/19 Joseph Trivedi MD [facility] [address] [address] Rheumatology 05/21/20 Rene Grant MD 516 [place] [address] Assigned Surgical Provider 09/12/22 Manju Perkins, JENNIFER Registered Nurse 05/24/24 Martine Rios MD [address] [place] [address] Assigned Nephrology Provider 07/02/24 documented as of this encounter
--- OUTSIDE RECORDS SUMMARY | 2024-09-27 20:28 | XMS_ITS | Encounter Summary ---
Author Organization [place] Address [address] [place] [address]. [place] [address] Care Team Providers Care Vault Custodian Name Role Phone Ailin Zavala MD Unavailable [phone] Martina Strickland PA-C Primary Care Provider Amadeo King MD Unavailable [phone] Joseph Trivedi MD Unavailable [phone] Rene Grant MD Unavailable [phone] Manju Perkins RN Unavailable Unavaila Martine Sr MD Unavailable [phone] Encounter Details Date Type Department Care Team (Late st Contact Info) Description 09/06/2024 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 Gender Identity Female 2019 10:10 AM CDT Sexual Orientation Straight 2019 10 :10 AM CDT documented as of this encounter Plan of Treatment Upcoming Encounters Date Type Department Care Team (Late st Contact Info) Description 09/29/2024 4:05 PM CDT Office Visit [facility] 909 [place] [phone] Martine Rios MD 500 [place], [place] [address] 09/29/2024 5:30 PM CDT Ancillary Procedure [facility] 909 [facility] 1st [place] [phone] Martine Rios MD 500 [place], [place] [address] 10/30/2024 3:00 PM CDT Office Visit [facility] Eye [facility] [place] 443296 [facility] 9th Dc Clin 9A [place] [address] Amadeo King MD 420 [facility] 493 [place], [place] [address] 12/05/2024 3:00 PM CDT Office Visit [facility] Eye [facility] 516 [facility] 9th Dc Clin 9A [place] [phone] Emma Deshpande MD 516 [facility] [address] 911 [place], [place] 847635 documented as of this encounter Visit Diagnoses Not on filedocumented in this encounter Care Teams Vault Custodian Relationship Specialty Start Date End Date Martina Strickland PA-C PCP - General Physician Neon Light Installer 07/19/19 Ailin Zavala MD Internal Medicine 07/28/11 Amadeo King MD [address] [address] Ophthalmology 12/22/19 Joseph Trivedi MD [facility] [address] 215 [place], [place] [address] Rheumatology 05/21/20 Rene Grant MD 516 [place] [address] Assigned Surgical Provider 09/12/22 Manju Perkins, RN Registered Nurse 05/24/24 Martine Rios MD [address] [place] [address] Assigned Nephrology Provider 07/02/24 documented as of this encounter
--- OUTSIDE RECORDS SUMMARY | 2024-09-27 20:28 | XMS_ITS | Encounter Summary ---
Author Organization [facility] Address [address] [place] [address] Care Team Providers Care Tester Wafer Substrate Name Role Phone Ailin Zavala MD Unavailable [phone] Martina Strickland PA-C Primary Care Provider Amadeo King MD Unavailable [phone] Joseph Trivedi MD Unavailable [phone] Rene Grant MD Unavailable [phone] Manju Perkins RN Unavailable Unavaila ble Martine Rios MD Unavailable [phone] Reason for Referral * Diagnostic Imaging Ultrasound (Routine) - Pending Review Specialty Diagnoses / Procedures Referred By Contac t Referred To Contact Radiology. 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 Gender Identity Female 2019 10:10 AM CDT Sexual Orientation Straight 2019 10 :10 AM CDT documented as of this encounter Plan of Treatment Upcoming Encounters Date Type Department Care Team (Late st Contact Info) Description 09/29/2024 4:05 PM CDT Office Visit [facility] 9 [place] [phone] Martine Rios MD [address] [place] [address] 09/29/2024 5:30 PM CDT Ancillary Procedure [facility] Imaging [facility] 909 [facility] 1st [place] [address] Martine Rios MD 500 [place], [place] [address] 10/30/2024 3:00 PM CDT Office Visit [facility] Eye [facility] [address] 9A [place] [address] Amadeo King MD 420 [facility] 493 [place], [place] [address] 12/05/2024 3:00 PM CDT Office Visit [facility] 516 [facility] 9th Fl Clin 9A [place] [phone] Emma Deshpande MD 516 [facility] [address] 911 [place], [place] 6[address] Scheduled Orders Name Type Priority Associated Diagnoses Orde r Schedule US Lower Extremity Venous Duplex Bilateral Imaging Routine Edema Expected: 09/27/2024 (Approximate), Expires: 09/27/2025 documented as of this encounter Visit Diagnoses Diagnosis Edema- Primary documented in this encounter Care Teams Tester Wafer Substrate Relationship Specialty Start Date End Date Martina Strickland PA-C PCP - General Physician Gastroenterology Technician 07/19/19 Ailin Zavala MD Internal Medicine 07/28/11 Amadeo King MD [address] [place] [address] Ophthalmology 12/22/19 Joseph Trivedi MD [facility] [address] [facility] 215 [place], [place] [address] Rheumatology 05/21/20 Rene Grant MD [address] [place] [address]17[address] Assigned Surgical Provider 09/12/22 Manju Perkins, RN Registered Nurse 05/24/24 Martine Rios MD 500 [place] [address] Assigned Nephrology Provider 07/02/24 documented as of this encounter
--- OUTSIDE RECORDS SUMMARY | 2024-09-27 20:28 | XMS_ITS | Encounter Summary ---
Author Organization [facility] Address [address] [place] [address]. 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 Gender Identity Female 2019 10:10 AM CDT Sexual Orientation Straight 2019 10 :10 AM CDT documented as of this encounter Plan of Treatment Upcoming Encounters Date Type Department Care Team (Late st Contact Info) Description 09/29/2024 4:05 PM CDT Office Visit [facility] Transplant Clinic 909 [place] [phone] Martine Rios MD 500 [place], [place] [address] 09/29/2024 5:30 PM CDT Ancillary Procedure [facility] 909 [facility] 1st [place] [phone] Martine Rios MD 500 [place], [place] [address] 10/30/2024 3:00 PM CDT Office Visit [facility] Eye [facility] Emergency Department 516 [facility] 9th [facility] 9A [place] [address] Amadeo King MD 420 [facility] 493 [address] 12/05/2024 3:00 PM CDT Office Visit [facility] Eye [facility] Emergency Department 516 [facility] 9th [facility] 9A [place] [address] Emma Deshpande MD 516 [facility] 911 [address] documented as of this encounter Visit Diagnoses Not on filedocumented in this encounter Care Teams Landmen Relationship Specialty Start Date End Date Martina Strickland PA-C PCP - General Physician Agricultural Equipment Operator 07/19/19 Ailin Zavala MD Internal Medicine 07/28/11 Amadeo King MD [address] [place] [address]22[address] Ophthalmology 12/22/19 Joseph Trivedi MD [facility] [address] [address] Rheumatology 05/21/20 Rene Grant MD [address] [place] [id number] Assigned Surgical Provider 09/12/22 Manju Perkins, JENNIFER Registered Nurse 05/24/24 Martine Rios MD [address] [place] [address] [id number] Assigned Nephrology Provider 07/02/24 documented as of this encounter
--- OUTSIDE RECORDS SUMMARY | 2024-09-27 20:28 | XMS_ITS | Encounter Summary ---
Author Organization [facility] Address [address] [place] [address]. [place] [address] Care Team Providers Care Rodeo Clown Name Role Phone Ailin Zavala MD Unavailable Martina Strickland PA-C Primary Care Provider Amadeo King MD Unavailable [phone] Joseph Trivedi MD Unavailable [phone] Rene Grant MD Unavailable [phone] Manju Perkins RN Unavailable Unavaila Martine Sr MD Unavailable [phone] Encounter Details Date Type Department Care Team (Late st Contact Info) Description 09/14/2024 Results Follow-Up [facility] Transplant Clinic 909 [place] [address] Manju Perkins, RN Subj: Message about your results Social History Tobacco Use Types Packs/Day Years [...] AM CDT 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:59 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 Gender Identity Female 2019 10:10 AM CDT Sexual Orientation Straight 2019 10 :10 AM CDT documented as of this encounter Plan of Treatment Upcoming Encounters Date Type Department Care Team (Late st Contact Info) Description 09/29/2024 4:05 PM CDT Office Visit [facility] Transplant Clinic 9 [place] [phone] Martine Rios MD 500 [place], [place] [address] 09/29/2024 5:30 PM CDT Ancillary Procedure [facility] 909 [facility] 1st [place] [phone] Martine Rios MD 500 [place], [place] [address] 10/30/2024 3:00 PM CDT Office Visit [facility] Eye [facility] [place] 149736 [facility] 9th Va Clin 9A [place] [address] Amadeo King MD 420 [facility] 493 [place], [place] [address] 12/05/2024 3:00 PM CDT Office Visit [facility] Eye [facility] [place] 149736 [facility] 9th Va Clin 9A [place] [address] Emma Deshpande MD 516 [facility] [address] 911 [place], [place] 7447[address] documented as of this encounter Visit Diagnoses Not on filedocumented in this encounter Care Teams Rodeo Clown Relationship Specialty Start Date End Date Martina Strickland PA-C PCP - General Physician Plate Take Out Worker 07/19/19 Ailin Zavala MD Internal Medicine 07/28/11 Amadeo King MD [address] [address] Ophthalmology 12/22/19 Joseph Trivedi MD [facility] [address] 215 [place], [place] [address] Rheumatology 05/21/20 Rene Grant MD 516 [place] [address] Assigned Surgical Provider 09/12/22 Manju Perkins, JENNIFER Registered Nurse 05/24/24 Martine Rios MD [address] [place] [address] Assigned Nephrology Provider 07/02/24 documented as of this encounter
--- OUTSIDE RECORDS SUMMARY | 2024-09-27 20:28 | XMS_ITS | Encounter Summary ---
Author Organization [facility] Address [address] [place] [address]. [place] [address] Care Team Providers Care Powder Cutting Operator Name Role Phone Sally Ailin Hebert MD Unavailable [phone] Martina Strickland PA-C Primary Care Provider Amadeo King MD Unavailable [phone] Joseph Trivedi MD Unavailable [phone] Rene Grant MD Unavailable [phone] Manju Perkins RN Unavailable Unavaila Martine Sr MD Unavailable [phone] Encounter Details Date Type Department Care Team (Late st Contact Info) Description 08/23/2024 Telephone [facility] Transplant Clinic 909 [place] [address] Manju Perkins, RN Social History [...] AM CDT 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 PLAN: As reviewed with [facility] to STOP MMF, START MPA 720mg BID. MyC sent. documented in this encounter Plan of Treatment Upcoming Encounters Date Type Department Care Team (Late st Contact Info) Description 09/29/2024 4:05 PM CDT Office Visit [facility] Transplant Clinic [address] [place] [phone] Martine Rios MD [address] [place] [address] 09/29/2024 5:30 PM CDT Ancillary Procedure [facility] 909 [facility] 1st [place] [phone] Martine Rios MD 500 [place], [place] [address] 10/30/2024 3:00 PM CDT Office Visit [facility] Eye Clinic [address] 9[facility] 9A [place] [phone] Amadeo King MD 420 [facility] 493 [place], [place] [address] 12/05/2024 3:00 PM CDT Office Visit [facility] Eye [facility] 516 [facility] 9th Fl Clin 9A [place] [address] Emma Deshpande MD 6 [facility] 911 [place], [place] [address] documented as of this encounter Visit Diagnoses Diagnosis Limbal stem cell deficiency- Primary Immunosuppressed status Unspecified disorder of immune mechanism documented in this encounter Care Teams Powder Cutting Operator Relationship Specialty Start Date End Date Martina Strickland PA-C PCP - General Physician Software Project Lead 07/19/19 Ailin Zavala MD Internal Medicine 07/28/11 Amadeo King MD [address] [place] [address] Ophthalmology 12/22/19 Joseph Trivedi MD [facility] [address] [facility] 215 [place], [place] [address] Rheumatology 05/21/20 Rene Grant MD [address] [place] [address] [id number] Assigned Surgical Provider 09/12/22 Manju Perkins RN Registered Nurse 05/24/24 Martine Rios MD [address] [place] [address] Assigned Nephrology Provider 07/02/24 documented as of this encounter
--- OUTSIDE RECORDS SUMMARY | 2024-09-27 20:28 | XMS_ITS | Encounter Summary ---
Author Organization [facility] Address [address] [place] [address]. [place] [address] Care Team Providers Care News Agent Name Role Phone Ailin Zavala MD Unavailable [phone] Martina Strickland PA-C Primary Care Provider Amadeo King MD Unavailable [phone] Joseph Trivedi MD Unavailable [phone] Rene Grant MD Unavailable [phone] Manju Perkins RN Unavailable Unavaila Martine Sr MD Unavailable [phone] Encounter Details Date Type Department Care Team (Late st Contact Info) Description 08/30/2024 MyC Medical Advice [facility] Transplant Clinic [address] [place] [address] Manju Perkins, RN Social History Tobacco [...] AM CDT 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 1st [place] [phone] Martine Rios MD 500 [place], [place] [phone] 10/30/2024 3:00 PM CDT Office Visit [facility] Eye [facility] [place] 220546 [facility] 9th Nv Clin 9A [place] [phone] Amadeo King MD 420 [facility] 493 [place], [place] [address] 12/05/2024 3:00 PM CDT Office Visit [facility] Eye [facility] 516 [facility] 9th Nv Clin 9A [place] [address] Emma Deshpande MD 516 [facility] 911 [place], [place] [address] documented as of this encounter Visit Diagnoses Not on filedocumented in this encounter Care Teams News Agent Relationship Specialty Start Date End Date Martina Strickland PA-C PCP - General Physician Manager Cleaning 07/19/19 Ailin Zavala MD Internal Medicine 07/28/11 Amadeo King MD [address] [address] Ophthalmology 12/22/19 Joseph Trivedi MD [facility] [address] 215 [place], [place] [address] Rheumatology 05/21/20 Rene Grant MD 516 [place] [address] Assigned Surgical Provider 09/12/22 Manju Perkins, RN Registered Nurse 05/24/24 Martine Rios MD [address] [place] [address] Assigned Nephrology Provider 07/02/24 documented as of this encounter
--- OUTSIDE RECORDS SUMMARY | 2024-09-27 20:28 | XMS_ITS | Encounter Summary ---
Author Organization [facility] Address [address] [place] [address] Care Team Providers Care Bituminous Paving Machine Operator Name Role Phone Ailin Zavala MD Unavailable [phone] Martina Strickland PA-C Primary Care Provider Amadeo King MD Unavailable [phone] Amadeo King MD Unavailable [phone] Joseph Trivedi MD Unavailable [phone] Rene Grant MD Unavailable [phone] Amadeo Winston MD Unavailable [phone] Amadeo Winston MD Unavailable [phone] Rene Grant MD Unavailable [phone] Rene Grant MD Unavailable Manju Perkins RN Unavailable Unavaila Martine Sr MD Unavailable [phone] Reason for Visit * Reason Onset Date Comments Refill Request 06/22/2022 prednisoLONE dick benitez (PRED FORTE) 1 % ophthalmic suspension Encounter Details Date Type Department Care Team (Late st Contact Info) Description 06/22/2022 [facility] Eye [address] 9[facility] Clin 9A [place] [address] Rene Grant MD [address] [place] [address] Refill Request (prednisoLONE acetate (PRED FORTE) 1 % ophthalmic suspension) Social History Tobacco Use Types Packs/Day Years Used Date Smoking Tobacco: Never Smokeless Tobacco: Never Alcohol Use Standard Drinks/Week Comments No 0 (1 standard drink = 0.6 oz pur e alcohol) PHQ-2 Answer Date Recorded PHQ-2 Score 0 05/29/2021 Comments No Sex and Gender Information Value Date Recorded Sex Assigned at Female 2019 10:10 AM CDT 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:59 AM LEATHER FITTER Gender Identity Female 2019 10:10 AM CDT Sexual Orientation Straight 2019 10 :10 AM CDT COVID-19 Exposure Response Date Recorded In the last 10 days, have yo u been in contact with someone who was confirmed or suspected to have Coronavirus/COVID-19? No / Unsure 06/03/2022 2:32 PM LEATHER FITTER documented as of this encounter Miscellaneous Notes [...] to arrive. requests 10 ml 0 rfs. HER FITTER HER FITTER * Telephone Encounter - Ashley Paula - 06/22/2022 1:03 PM CST [facility] Phone Message May a detailed message be left on voicemail: yes Reason for Call: Medication Refill Request Has the patient contacted the pharmacy for the refill? Yes Name of medication being requested: prednisoLONE acetate (PRED FORTE) 1 % ophthalmic suspension Provider who prescribed the medication: Dr. Grant Pharmacy: [facility] Date medication is needed: JOSE MANUEL Patient called stating she will not have this medication until the from her mail order pharmacy and she is out. She is asking for an emergency refill. Action Taken: Other: eye Travel Screening: Not Applicable HER FITTER documented in this encounter Plan of Treatment Upcoming Encounters Date Type Department Care Team (Late st Contact Info) Description 09/29/2024 4:05 PM CDT Office Visit [facility] Trans[facility] 909 [place] [address] Martine Rios MD 500 [place], [place] 420325 09/29/2024 5:30 PM CDT Ancillary Procedure [facility] 909 [facility] 1st [place] [address] Martine Rios MD 500 [place], [place] 6[address] 10/30/2024 3:00 PM CDT Office Visit [facility] - [place] [id number] [facility] 9th [facility] 9A [place] [phone] Amadeo King MD 420 [facility] 493 [place], [place] [address]38[address] 12/05/2024 3:00 PM CDT Office Visit [facility] Eye [facility] 516 [facility] 9th Wi Clin 9A [place] [address] Emma Deshpande MD 516 [facility] 911 [place], [place] 319865 documented as of this encounter Visit Diagnoses Diagnosis 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 documented in this encounter Additional [facility] Concerns Infection Onset Date Last Indicated Resolved Time Rule Out C-difficile 07/11/2024 07/11/2024 025 11:41 PM LEATHER FITTER documented as of this encounter Care Teams Bituminous Paving Machine Operator Relationship Specialty Start Date End Date Martina Strickland PA-C PCP - General Physician Health Records Technology Teacher 07/19/19 Ailin Zavala MD Internal Medicine 07/28/11 Amadeo King MD [address] [place] [address] 129365 Ophthalmology 12/22/19 Amadeo King MD [address] [place] [address] [id number] Assigned PCP 04/07/20 06/02/23 Joseph Trivedi MD [facility] [address] [address] Rheumatology 05/21/20 Rene Grant MD [address] [place] [address] [id number] Assigned Surgical Provider 04/04/22 08/21/22 Amadeo Winston MD [address] [place] [address] [id number] Assigned Surgical Provider 08/22/22 08/28/22 Amadeo Winston MD [address] [place] [address] [id number] Assigned Surgical Provider 09/05/22 09/11/22 Rene Grant MD [address] [place] [address] [id number] Assigned Surgical Provider 08/29/22 09/04/22 Rene Grant MD [address] [place] [address] 151945 Assigned Surgical Provider 09/12/22 Manju Perkins, JENNIFER Registered Nurse 05/24/24 Martine Rios MD [address] [place] [address] Assigned Nephrology Provider 07/02/24 documented as of this encounter
--- OUTSIDE RECORDS SUMMARY | 2024-09-27 20:28 | XMS_ITS | Encounter Summary ---
Author Organization [place] Address [address] [place] [address] Care Team Providers Care Lamp Decorator Name Role Phone Ailin Zavala MD Unavailable [phone] Martina Strickland PA-C Primary Care Provider Amadeo King MD Unavailable [phone] Joseph Trivedi MD Unavailable [phone] [facility] Unavailable [phone] Manju Perkins RN Unavailable Unavaila Martine Sr MD Unavailable [phone] Encounter Details Date Type Department Care Team (Late st Contact Info) Description 06/28/2024 MyC Medical Advice [facility] OR [address] 5th [place] [address] Lesa Guzman, JENNIFER Social History Tobacco Use Types Packs/Day [...] AM CDT 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 1st [place] [phone] Martine Rios MD 500 [place], [place] [address] 10/30/2024 3:00 PM CDT Office Visit [facility] 516 [facility] 9th [place] Clin 9A [place] [address] Amadeo King MD 420 [facility] MMC 493 [place], [place] [address] 12/05/2024 3:00 PM CDT Office Visit [facility] 516 [facility] 9th [place] Clin 9A [place] [address] Emma Deshpande MD 516 [facility] [address] 911 [place] [address] documented as of this encounter Visit Diagnoses Not on filedocumented in this encounter Additional Health Concerns Infection Onset Date Last Indicated Resolved Time Rule Out C-difficile 07/11/2024 07/11/2024 025 11:41 PM FISCAL TECHNICIAN documented as of this encounter Care Teams Lamp Decorator Relationship Specialty Start Date End Date Martina Strickland PA-C PCP - General Physician Weed Science Research Technician 07/19/19 Ailin Zavala MD Internal Medicine 07/28/11 Amadeo King MD [address] [phone] Ophthalmology 12/22/19 Joseph Trivedi MD [facility] [address] [place] [address] Rheumatology 05/21/20 Rene Grant MD 516 [place] [address] Assigned Surgical Provider 09/12/22 Manju Perkins, JENNIFER Registered Nurse 05/24/24 Martine Rios MD [address] [place] [address] Assigned Nephrology Provider 07/02/24 documented as of this encounter
--- OUTSIDE RECORDS SUMMARY | 2024-09-27 20:28 | XMS_ITS | Encounter Summary ---
Author Organization [place] Address [address] [place] [address]. 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 Gender Identity Female 2019 10:10 AM CDT Sexual Orientation Straight 2019 10 :10 AM CDT documented as of this encounter Plan of Treatment Upcoming Encounters Date Type Department Care Team (Late st Contact Info) Description 09/29/2024 4:05 PM CDT Office Visit [facility] Transplant Clinic 909 [place] [phone] Martine Rios MD 500 [place], [place] 772465 09/29/2024 5:30 PM CDT Ancillary Procedure [facility] 909 [facility] 1st [place] [address] Martine Rios MD 500 [place], [place] [address]295 10/30/2024 3:00 PM CDT Office Visit [facility] Eye [facility] Emergency Department 516 [facility] 9th [facility] 9A [place] [address] Amadeo King MD 420 [facility] M[facility] 493 [place], [place] [address] 12/05/2024 3:00 PM CDT Office Visit [facility] Eye [facility] Emergency Department 516 [facility] 9th [facility] 9A [place] [phone] Emma Deshpande MD 516 [facility] 911 [place], [place] 9474[address] documented as of this encounter Visit Diagnoses Not on filedocumented in this encounter Care Teams Mechanic Driver Relationship Specialty Start Date End Date Martina Strickland PA-C PCP - General Physician [place] Guide 07/19/19 Ailin Zavala MD Internal Medicine 07/28/11 Amadeo King MD [address] [place] [address] 408325 Ophthalmology 12/22/19 Joseph Trivedi MD [facility] [address] 771535 Rheumatology 05/21/20 Rene Grant MD [address] [place] [address] [phone] Assigned Surgical Provider 09/12/22 Manju Perkins, JENNIFER Registered Nurse 05/24/24 Martine Rios MD [address] [place] [address] [phone] Assigned Nephrology Provider 07/02/24 documented as of this encounter
--- OUTSIDE RECORDS SUMMARY | 2024-09-27 20:28 | XMS_ITS | Encounter Summary ---
Author Organization [place] Address [address] [place] [address]. 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 Gender Identity Female 2019 10:10 AM CDT Sexual Orientation Straight 2019 10 :10 AM CDT documented as of this encounter Plan of Treatment Upcoming Encounters Date Type Department Care Team (Late st Contact Info) Description 09/29/2024 4:05 PM CDT Office Visit [facility] Transplant Clinic 9 [place] [phone] Martine Rios MD 500 [place], [place] 494405 09/29/2024 5:30 PM CDT Ancillary Procedure [facility] 909 [facility] 1st [place] [phone] Martine Rios MD 500 [place], [place] 987295 10/30/2024 3:00 PM CDT Office Visit [facility] Eye [facility] 516 [facility] 9th Sc Clin 9A [place] [address] Amadeo King MD 420 [facility] 493 [place], [place] [address] 12/05/2024 3:00 PM CDT Office Visit [facility] Eye [facility] 516 [facility] 9th [facility] Clin 9A [place] [phone] Emma Deshpande MD 516 [facility] 911 [place], [place] 5[address]125 documented as of this encounter Visit Diagnoses Not on filedocumented in this encounter Care Teams It Network Administrator Relationship Specialty Start Date End Date Martina Strickland PA-C PCP - General Physician Electromatic Typist 07/19/19 Ailin Zavala MD Internal Medicine 07/28/11 Amadeo King MD [address] [address] Ophthalmology 12/22/19 Joseph Trivedi MD [facility] [address] [address] Rheumatology 05/21/20 Rene Grant MD 516 [place] [address] Assigned Surgical Provider 09/12/22 Manju Perkins, JENNIFER Registered Nurse 05/24/24 Martine Rios MD [address] [place] [address] Assigned Nephrology Provider 07/02/24 documented as of this encounter
--- OUTSIDE RECORDS SUMMARY | 2024-09-27 20:28 | XMS_ITS | Encounter Summary ---
Author Organization [place] Address [address] [place] [address] Care Team Providers Care Assembly Associate Name Role Phone Ailin Zavala MD Unavailable Martina Strickland PA-C Primary Care Provider Amadeo King MD Unavailable [phone] Joseph Trivedi MD Unavailable [phone] Rene Grant MD Unavailable [phone] Manju Perkins RN Unavailable Unavaila Martine Sr MD Unavailable Reason for Visit * Reason Comments Medication Refill Encounter Details Date Type Department Care Team (Late st Contact Info) Description 08/29/2024 Refill [facility] Eye [facility] 516 [facility] 9[facility] Clin 9A [place] [address] Amadeo King MD 420 [facility] 493 [place] [address] Medication Refill Social History Tobacco Use Types [...] AM CDT 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 - Oral Last Visit Date: 08/02/24 Christine - Diamox 500mg po BID Future Visit Date: 08/30/24 Christine Refill decision: Medication refilled per ???Medication Refill in Malt House Operator?? policy. Request from pharmacy: Requested Prescriptions Pending Prescriptions Disp Refills acetaZOLAMIDE (DIAMOX SEQUEL) 500 MG 12 hr capsule [Pharmacy Med Name: ACETAZOLAMIDE 500MG ER CAPSULES] 60 capsule 0 Sig: TAKE 1 CAPSULE(500 MG) BY MOUTH TWICE DAILY There is no refill protocol information for this order documented in this encounter Plan of Treatment Upcoming Encounters Date Type Department Care Team (Late st Contact Info) Description 09/29/2024 4:05 PM CDT Office Visit [facility] Transplant Clinic 9 [place] [phone] Martine Rios MD 500 [place], [place] 6548[address] 09/29/2024 5:30 PM CDT Ancillary Procedure [facility] 909 [facility] 1st [place] [address] Martine Rios MD 500 [place], [place] [address]40[address] 10/30/2024 3:00 PM CDT Office Visit [facility] Eye [address] 9[facility] 9A [place] [address] Amadeo King MD [address] [place] [address] 433455 12/05/2024 3:00 PM CDT Office Visit [facility] Eye [address] 9[facility] 9A [place] [phone] Emma Deshpande MD [address] [place], [place] [address] [place], [place] [address] documented as of this encounter Visit Diagnoses Diagnosis Ocular hypertension, right eye documented in this encounter Care Teams Assembly Associate Relationship Specialty Start Date End Date Martina Strickland PA-C PCP - General Physician Occ Therapy Asst 07/19/19 Ailin Zavala MD Internal Medicine 07/28/11 Amadeo King MD [address] [place] [address] 285185 Ophthalmology 12/22/19 Joseph Trivedi MD [facility] [address] [place], [place] 85[address] Rheumatology 05/21/20 Rene Grant MD [address] [place] [address] Assigned Surgical Provider 09/12/22 Manju Perkins, JENNIFER Registered Nurse 05/24/24 Martine Rios MD [address] [place] [address] [phone] Assigned Nephrology Provider 07/02/24 documented as of this encounter
--- OUTSIDE RECORDS SUMMARY | 2024-09-27 20:28 | XMS_ITS | Encounter Summary ---
Author Organization [place] Address [address] [place] [address]. 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 909 [facility] 1st [place] [phone] Martine Rios MD 500 [place], [place] 3[address] 10/30/2024 3:00 PM CDT Office Visit [facility] Eye [facility] 516 [facility] 9th Wi Clin 9A [place] [phone] Amadeo King MD 420 [facility] 493 [place], [place] [address] 12/05/2024 3:00 PM CDT Office Visit [facility] Eye [facility] 516 [facility] 9th Wi Clin 9A [place] [phone] Emma Deshpande MD 516 [facility] 911 [place], [place] 4[address] documented as of this encounter Visit Diagnoses Not on filedocumented in this encounter Care Teams Case Fitter Relationship Specialty Start Date End Date Martina Strickland PA-C PCP - General Physician Silverware Etcher 07/19/19 Ailin Zavala MD Internal Medicine 07/28/11 Amadeo King MD [address] [address] Ophthalmology 12/22/19 Joseph Trivedi MD [facility] [address] [address] Rheumatology 05/21/20 Rene Grant MD 516 [place] [address] Assigned Surgical Provider 09/12/22 Manju Perkins, JENNIFER Registered Nurse 05/24/24 Martine Rios MD [address] [place] [address] Assigned Nephrology Provider 07/02/24 documented as of this encounter
--- OUTSIDE RECORDS SUMMARY | 2024-09-27 20:28 | XMS_ITS | Encounter Summary ---
Author Organization [place] Address [address] [place] [address] Care Team Providers Care Insurance Billing Specialist Name Role Phone Ailin Zavala MD Unavailable [phone] Martina Strickland PA-C Primary Care Provider Amadeo King MD Unavailable [phone] Joseph Trivedi MD Unavailable [phone] Rene Grant MD Unavailable [phone] Manju Perkins RN Unavailable Unavaila Martine Sr MD Unavailable [phone] Encounter Details Date Type Department Care Team (Late st Contact Info) Description 06/28/2024 MyC Medical Advice [facility] Transplant Clinic [address] [place] [address] Manju Perkins, RN Social History Tobacco [...] AM CDT 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 Gender Identity Female 2019 10:10 AM CDT Sexual Orientation Straight 2019 10 :10 AM CDT documented as of this encounter Plan of Treatment Upcoming Encounters Date Type Department Care Team (Late st Contact Info) Description 09/29/2024 4:05 PM CDT Office Visit [facility] Transplant Clinic 909 [place] [address] Martine Rios MD 500 [place], [place] [address] 09/29/2024 5:30 PM CDT Ancillary Procedure [facility] 909 [facility] 1st [place] [phone] Martine Rios MD 500 [place], [place] 935715 10/30/2024 3:00 PM CDT Office Visit [facility] Eye [facility] 516 [facility] 9th [place] Clin 9A [place] [phone] Amadeo King MD 420 [facility] 493 [place], [place] [address] 12/05/2024 3:00 PM CDT Office Visit [facility] Eye [facility] 516 [facility] 9th [facility] 9A [place] [phone] Emma Deshpande MD 516 [facility] DAV[address] 911 [place], [place] [address] documented as of this encounter Visit Diagnoses Not on filedocumented in this encounter Additional Health Concerns Infection Onset Date Last Indicated Resolved Time Rule Out C-difficile 07/11/2024 07/11/2024 025 11:41 PM JUNIOR LINUX SYSTEMS ADMINISTRATOR documented as of this encounter Care Teams Insurance Billing Specialist Relationship Specialty Start Date End Date Martina Strickland PA-C PCP - General Physician Side Seam Envelope Machine Operator 07/19/19 Ailin Zavaal MD Internal Medicine 07/28/11 Amadeo King MD [address] [address] Ophthalmology 12/22/19 Joseph Trivedi MD [facility] [address] [place] [address] Rheumatology 05/21/20 Rene Grant MD 516 [place] [address] Assigned Surgical Provider 09/12/22 Manju Perkins, JENNIFER Registered Nurse 05/24/24 Martine Rios MD [address] [place] [address] Assigned Nephrology Provider 07/02/24 documented as of this encounter
--- OUTSIDE RECORDS SUMMARY | 2024-09-27 20:28 | XMS_ITS | Encounter Summary ---
Author Organization [place] Address [address] [place] [address]. [place] [address] Care Team Providers Care Jack Spooler Tender Name Role Phone Ailin Zavala MD Unavailable [phone] Martina Strickland PA-C Primary Care Provider Amadeo King MD Unavailable [phone] Joseph Trivedi MD Unavailable [phone] Rene Grant MD Unavailable [phone] Manju Perkins RN Unavailable Unavaila Martine Sr MD Unavailable [phone] Reason for Visit * Reason Onset Date Comments Other 06/05/2024 Encounter Details Date Type Department Care Team (Late st Contact Info) Description 06/05/[address] 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 FYI. Action Taken: Other: eye Travel Screening: Not Applicable ER TAPPER documented in this encounter Plan of Treatment Upcoming Encounters Date Type Department Care Team (Late st Contact Info) Description 09/29/2024 4:05 PM CDT Office Visit [facility] Transplant Clinic 909 [place] [phone] Martine Rios MD 500 [place], [place] [address] 09/29/2024 5:30 PM CDT Ancillary Procedure [facility] 909 [facility] 1st [place] [phone] Martine Rios MD 500 [place] [address] 10/30/2024 3:00 PM CDT Office Visit [facility] Eye Clinic [facility] 516 [facility] Emergency Department 9th Ma Clin 9A [place] [address] Amadeo King MD [address] [address] 12/05/2024 3:00 PM CDT Office Visit [facility] Eye [facility] 516 [facility] Emergency Department 9th Fl Clin 9A [place] [address] Emma Deshpande MD 516 [facility] 911 [place] [address] documented as of this encounter Visit Diagnoses Not on filedocumented in this encounter Additional Health Concerns Infection Onset Date Last Indicated Resolved Time Rule Out C-difficile 07/11/2024 07/11/2024 025 11:41 PM COPPER TAPPER documented as of this encounter Care Teams Jack Spooler Tender Relationship Specialty Start Date End Date Martina Strickland PA-C PCP - General Physician Food And Drink Factory Workers 07/19/19 Ailin Zavala MD Internal Medicine 07/28/11 Amadeo King MD 420 [facility] 493 [place], [place] [phone] Ophthalmology 12/22/19 Joseph Trivedi MD [facility] [address] [facility] 215 [place], [place] [address] Rheumatology 05/21/20 Rene Grant MD [address] [place] [address]455 Assigned Surgical Provider 09/12/22 aMnju Perkins, RN Registered Nurse 05/24/24 Martine Rios MD [address] [place] [address] [id number] Assigned Nephrology Provider 07/02/24 documented as of this encounter
--- OUTSIDE RECORDS SUMMARY | 2024-09-27 20:28 | XMS_ITS | Encounter Summary ---
Author Organization [place] Address [address] [place] [address]. 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 1st [place] [phone] Martine Rios MD 500 [place], [place] 8[address] 10/30/2024 3:00 PM CDT Office Visit [facility] Eye [facility] 516 [facility] 9th [facility] 9A [place] [phone] Amadeo King MD 420 [facility] 493 [place], [place] [address] 12/05/2024 3:00 PM CDT Office Visit [facility] Eye [facility] 516 [facility] 9th [facility] 9A [place] [phone] Emma Deshpande MD 516 [facility] EMERGENCY [facility]PARTMENT 911 [place], [place] [address] documented as of this encounter Visit Diagnoses Not on filedocumented in this encounter Care Teams Forming Roll Operator Relationship Specialty Start Date End Date Martina Strickland PA-C PCP - General Physician Plastic Top Assembler 07/19/19 Ailin Zavala MD Internal Medicine 07/28/11 Amadeo King MD [address] [place] [id number] Ophthalmology 12/22/19 Joseph Trivedi MD [facility] [address] 9489[address] Rheumatology 05/21/20 Rene Grant MD [address] [place] [address] [id number] Assigned Surgical Provider 09/12/22 Manju Perkins, JENNIFER Registered Nurse 05/24/24 Martine Rios MD [address] [place] [address] [id number] Assigned Nephrology Provider 07/02/24 documented as of this encounter
--- OUTSIDE RECORDS SUMMARY | 2024-09-27 20:28 | XMS_ITS | Encounter Summary ---
Author Organization [place] Address [address] [place] [address]. 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 Gender Identity Female 2019 10:10 AM CDT Sexual Orientation Straight 2019 10 :10 AM CDT documented as of this encounter Plan of Treatment Upcoming Encounters Date Type Department Care Team (Late st Contact Info) Description 09/29/2024 4:05 PM CDT Office Visit [facility] Transplant Clinic 9 [place] [phone] Martine Rios MD 500 [place], [place] [address]265 09/29/2024 5:30 PM CDT Ancillary Procedure [facility] 909 [facility] 1st [place] [phone] Martine Rios MD 500 [place], [place] [address] 10/30/2024 3:00 PM CDT Office Visit [facility] Eye [facility] Emergency Department 516 [facility] Emergency Department 9th Wy Clin 9A [place] [phone] Amadeo King MD 420 [facility] 493 [place], [place] [address] 12/05/2024 3:00 PM CDT Office Visit [facility] Eye [facility] Emergency Department 516 [facility] Emergency Department 9th Wy Clin 9A [place] [phone] Emma Deshpande MD 516 [facility] 911 [place], [place] [address] documented as of this encounter Visit Diagnoses Not on filedocumented in this encounter Care Teams Manipulator Operator Relationship Specialty Start Date End Date Martina Strickland PA-C PCP - General Physician School Clerk 07/19/19 Ailin Zavala MD Internal Medicine 07/28/11 Amadeo King MD [address] [address] Ophthalmology 12/22/19 Joseph Trivedi MD [facility] [address] [address] Rheumatology 05/21/20 Rene Grant MD 516 [place] [address] Assigned Surgical Provider 09/12/22 Manju Perkins, JENNIFER Registered Nurse 05/24/24 Martine Rios MD [address] [place] [address] Assigned Nephrology Provider 07/02/24 documented as of this encounter
--- OUTSIDE RECORDS SUMMARY | 2024-09-27 20:28 | XMS_ITS | Encounter Summary ---
Author Organization [place] Address [address] [place] [address]. 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 Gender Identity Female 2019 10:10 AM CDT Sexual Orientation Straight 2019 10 :10 AM CDT documented as of this encounter Plan of Treatment Upcoming Encounters Date Type Department Care Team (Late st Contact Info) Description 09/29/2024 4:05 PM CDT Office Visit [facility] Transplant Clinic 9 [place] [phone] Martine Rios MD 500 [place], [place] [address] 09/29/2024 5:30 PM CDT Ancillary Procedure [facility] 909 [facility] 1st [place] [phone] Martine Rios MD 500 [place], [place] [address] 10/30/2024 3:00 PM CDT Office Visit [facility] Eye [facility] 516 [facility] 9th Nm Clin 9A [place] [phone] Amadeo King MD 420 [facility] [address] [place], [place] [address] 12/05/2024 3:00 PM CDT Office Visit [facility] Eye [facility] 516 [facility] 9th Nm Clin 9A [place] [phone] Emma Deshpande MD 516 [facility] 911 [place], [place] [address] documented as of this encounter Visit Diagnoses Not on filedocumented in this encounter Care Teams State Game Protector Relationship Specialty Start Date End Date Martina Strickland PA-C PCP - General Physician Medical Safety Director 07/19/19 Ailin Zavala MD Internal Medicine 07/28/11 Amadeo King MD [address] [address] Ophthalmology 12/22/19 Joseph Trivedi MD [facility] [address] [address] Rheumatology 05/21/20 Rene Grant MD 516 [place] [address] Assigned Surgical Provider 09/12/22 Manju Perkins, JENNIFER Registered Nurse 05/24/24 Martine Rios MD [address] [place] [address] Assigned Nephrology Provider 07/02/24 documented as of this encounter
--- OUTSIDE RECORDS SUMMARY | 2024-09-27 20:28 | XMS_ITS | Encounter Summary ---
Author Organization [place] Address [address] [place] [address] Care Team Providers Care Tableau Report Developer Name Role Phone Ailin Zavala MD Unavailable [phone] Martina Strickland PA-C Primary Care Provider Amadeo King MD Unavailable [phone] Joseph Trivedi MD Unavailable [phone] Rene Grant MD Unavailable [phone] Manju Perkins RN Unavailable Unavaila Martine Sr MD Unavailable [phone] Encounter Details Date Type Department Care Team (Late st Contact Info) Description 05/16/2024 MyC Medical Advice [facility] Eye [address] Clin 9A [place] [address] Marito Howard Social History Tobacco Use Types Packs/Day Years [...] CDT 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 909 [facility] 1st [place] [phone] Martine Rios MD 500 [place], [place] [address] 10/30/2024 3:00 PM CDT Office Visit [facility] Eye [facility] 516 [facility] 9th De Clin 9A [place] [address] Amadeo King MD 420 [facility] 493 [place], [place] [address] 12/05/2024 3:00 PM CDT Office Visit [facility] Eye [facility] 516 [facility] 9th [facility] 9A [place] [address] Emma Deshpande MD 516 [facility] [address] [place] [address] documented as of this encounter Visit Diagnoses Not on filedocumented in this encounter Additional Health Concerns Infection Onset Date Last Indicated Resolved Time Rule Out C-difficile 07/11/2024 07/11/2024 025 11:41 PM CONCRETE TECHNICIAN documented as of this encounter Care Teams Tableau Report Developer Relationship Specialty Start Date End Date Martina Strickland PA-C PCP - General Physician Director Of Casino 07/19/19 Ailin Zavala MD Internal Medicine 07/28/11 Amadeo King MD 420 [facility] 493 [place] [address] Ophthalmology 12/22/19 Joseph Trivedi MD [facility] [address] [address] Rheumatology 05/21/20 Rene Grant MD 516 [place] [address] Assigned Surgical Provider 09/12/22 Manju Perkins, JENNIFER Registered Nurse 05/24/24 Martine Rios MD [address] [place] [address] Assigned Nephrology Provider 07/02/24 documented as of this encounter
--- OUTSIDE RECORDS SUMMARY | 2024-09-27 20:28 | XMS_ITS | Encounter Summary ---
Author Organization [place] Address [address] [place] [address] Care Team Providers Care Cupola Melting Supervisor Name Role Phone Ailin Zavala MD Unavailable [phone] Martina Strickland PA-C Primary Care Provider Amadeo King MD Unavailable [phone] Joseph Trivedi MD Unavailable [phone] Rene Grant MD Unavailable [phone] Manju Perkins RN Unavailable Unavaila Martine Sr MD Unavailable [phone] Encounter Details Date Type Department Care Team (Late st Contact Info) Description 06/22/2024 MyC Medical Advice [facility] Transplant Clinic [address] [place] [address] Manju Perkins, RN Social History Tobacco [...] AM CDT 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 Gender Identity Female 2019 10:10 AM CDT Sexual Orientation Straight 2019 10 :10 AM CDT documented as of this encounter Plan of Treatment Upcoming Encounters Date Type Department Care Team (Late st Contact Info) Description 09/29/2024 4:05 PM CDT Office Visit [facility] Transplant Clinic 909 [place] [phone] Martine Rios MD 500 [place], [place] [address] 09/29/2024 5:30 PM CDT Ancillary Procedure [facility] 909 [facility] 1st [place] [phone] Martine Rios MD 500 [place], [place] [address] 10/30/2024 3:00 PM CDT Office Visit [facility] Eye [facility] 516 [facility] 9th Il Clin 9A [place] [address] Amadeo King MD 420 [facility] 493 [place], [place] [address] 12/05/2024 3:00 PM CDT Office Visit [facility] Eye [facility] 516 [facility] [address] [facility] 9A [place] [phone] Emma Deshpande MD 516 [facility] [address] 911 [place], [place] [address] documented as of this encounter Visit Diagnoses Not on filedocumented in this encounter Additional Health Concerns Infection Onset Date Last Indicated Resolved Time Rule Out C-difficile 07/11/2024 07/11/2024 025 11:41 PM COMMERCIAL PORTFOLIO MANAGER documented as of this encounter Care Teams Cupola Melting Supervisor Relationship Specialty Start Date End Date Martina Strickland PA-C PCP - General Physician Structural Steel Equipment Erector 07/19/19 Ailin Zavala MD Internal Medicine 07/28/11 Amadeo King MD [address] [address] Ophthalmology 12/22/19 Joseph Trivedi MD [facility] [address] [place] [address] Rheumatology 05/21/20 Rene Grant MD 516 [place] [address] Assigned Surgical Provider 09/12/22 Manju Perkins, JENNIFER Registered Nurse 05/24/24 Martine Rios MD [address] [place] [address] Assigned Nephrology Provider 07/02/24 documented as of this encounter
--- OUTSIDE RECORDS SUMMARY | 2024-09-27 20:28 | XMS_ITS | Encounter Summary ---
Author Organization [facility] Address [address] [place] [address]. [place] [address] Care Team Providers Care Senior Java J2Ee Developer Name Role Phone Ailin Zavala MD Unavailable [phone] Martina Strickland PA-C Primary Care Provider Amadeo King MD Unavailable [phone] Joseph Trivedi MD Unavailable [phone] Rene Grant MD Unavailable [phone] Manju Perkins RN Unavailable Unavaila Martine Sr MD Unavailable [phone] Encounter Details Date Type Department Care Team (Late st Contact Info) Description 09/08/2024 Orders Only [facility] Transplant Clinic 9 [place] [address] Manju Perkins, RN Immunosuppressed status; Fungal infection Social History Tobacco Use Types Packs/Day Years [...] AM CDT 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:59 AM 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 Gender Identity Female 2019 10:10 AM CDT Sexual Orientation Straight 2019 10 :10 AM CDT documented as of this encounter Plan of Treatment Upcoming Encounters Date Type Department Care Team (Late st Contact Info) Description 09/29/2024 4:05 PM CDT Office Visit [facility] Transplant Clinic 9 [place] [phone] Martine Rios MD [address] [place], [place] [address] 09/29/2024 5:30 PM CDT Ancillary Procedure [facility] 909 [facility] 1st [place] [phone] Martine Rios MD [address] [place], [place] [address] 10/30/2024 3:00 PM CDT Office Visit [facility] Eye [facility] [place] 681156 [facility] 9th Ma Clin 9A [place] [address] Amadeo King MD 420 [facility] 493 [place], [place] [address] 12/05/2024 3:00 PM CDT Office Visit [facility] Eye [facility] [place] 681156 [facility] 9th Ma Clin 9A [place] [address] Emma Deshpande MD 516 [facility] [address] [place], [place] [address] documented as of this encounter Visit Diagnoses Diagnosis Immunosuppressed status Unspecified disorder of immune mechanism Fungal infection Other and unspecified mycoses documented in this encounter Care Teams Senior Java J2Ee Developer Relationship Specialty Start Date End Date Martina Strickland PA-C PCP - General Physician Automobile Body Repairer 07/19/19 Ailin Zavala MD Internal Medicine 07/28/11 Amadeo King MD [address] [place] [address] Ophthalmology 12/22/19 Joseph Trivedi MD [facility] [address] [place] [address] Rheumatology 05/21/20 Rene Grant MD [address] [place] [address] Assigned Surgical Provider 09/12/22 Manju Perkins, JENNIFER Registered Nurse 05/24/24 Martine Rios MD [address] [place] [address] Assigned Nephrology Provider 07/02/24 documented as of this encounter
--- OUTSIDE RECORDS SUMMARY | 2024-09-27 20:28 | XMS_ITS | Encounter Summary ---
Author Organization [facility] Address [address] [place] [address] Care Team Providers Care Grey Inspector Name Role Phone Ailin Zavala MD Unavailable [phone] Martina Strickland PA-C Primary Care Provider Amadeo King MD Unavailable [phone] Amadeo King MD Unavailable [phone] Joseph Trivedi MD Unavailable [phone] Kishan Spain OD Unavailable [phone] Emma Deshpande MD Unavailable [phone] Rene Grant MD Unavailable [phone] Amadeo Winston MD Unavailable [phone] Amadeo Winston MD Unavailable [phone] Rene Grant MD Unavailable [phone] Rene Grant MD Unavailable [phone] Manju Perkins RN Unavailable Unavaila Martine Sr MD Unavailable [phone] Reason for Visit * Reason Comments Medication Refill PREDNISOLONE ACET O/ DILSHAD 1% Encounter Details Date Type Department Care Team (Late st Contact Info) Description 05/28/2021 Refill [facility] [address] 4th [place] [phone] Silas Cody MD 7883 [place] [address] Medication Refill (PREDNISOLONE ACET O/DILSHAD 1%) Social [...] AM CDT 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:59 AM 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 No / Unsure 05/29/2021 2:48 PM ENVIRONMENTAL PROGRAMS MANAGER documented as of this encounter Miscellaneous Notes [...] Leo RN Central Triage Red Flags/Med Refills RONMENTAL PROGRAMS MANAGER documented in this encounter Plan of Treatment Upcoming Encounters Date Type Department Care Team (Late st Contact Info) Description 09/29/2024 4:05 PM CDT Office Visit [facility] [address] [place] [phone] Martine Rios MD 500 [place], [place] [phone] 09/29/2024 5:30 PM CDT Ancillary Procedure [facility] 909 [facility] 1st [place] [phone] Martine Rios MD 500 [place], [place] 404545 10/30/2024 3:00 PM CDT Office Visit [facility] - [facility] 516 [facility] 9th Wa Clin 9A [place] [phone] Amadeo King MD 420 [facility] 493 [place], [place] 078745 12/05/2024 3:00 PM CDT Office Visit [facility] - [facility] 516 [facility] 9th [facility] Clin 9A [place] [phone] Emma Deshpande MD 516 [facility] 911 [place], [place] 980085 documented as of this encounter Visit Diagnoses 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 documented in this encounter Additional Health Concerns Infection Onset Date Last Indicated Resolved Time Rule Out C-difficile 07/11/2024 07/11/2024 025 11:41 PM ENVIRONMENTAL PROGRAMS MANAGER documented as of this encounter Care Teams Grey Inspector Relationship Specialty Start Date End Date Martina Strickland PA-C PCP - General Physician Plastics Fitter 07/19/19 Ailin Zavala MD Internal Medicine 07/28/11 Amadeo King MD 420 [facility] 493 [place], [place] [phone] Ophthalmology 12/22/19 Amadeo King MD 420 [facility] 493 [place], [place] [phone] Assigned PCP 04/07/20 06/02/23 Joseph Trivedi MD [facility] [address] [facility] 215 [place] [address] Rheumatology 05/21/20 Kishan Spain OD 909 [facility] 4th [place] [phone] Assigned Surgical Provider 12/08/20 03/27/22 Emma Deshpande MD 516 [facility] 911 [place] [address] Assigned Surgical Provider 03/28/22 04/03/22 Rene Grant MD 516 [place], [place] [phone] Assigned Surgical Provider 04/04/22 08/21/22 Amadeo Winston MD [address] [place] [address] 957805 Assigned Surgical Provider 08/22/22 08/28/22 Amadeo Winston MD [address] [place] [address] 590005 Assigned Surgical Provider 09/05/22 09/11/22 Rene Grant MD [address] [place] [address] 136595 Assigned Surgical Provider 08/29/22 09/04/22 Rene Grant MD [address] [place] [address] 994255 Assigned Surgical Provider 09/12/22 Manju Perkins, JENNIFER Registered Nurse 05/24/24 Martine Rios MD [address] [place] [address] [id number] Assigned Nephrology Provider 07/02/24 documented as of this encounter
--- OUTSIDE RECORDS SUMMARY | 2024-09-27 20:29 | XMS_ITS | Encounter Summary ---
Author Organization [facility] Address [address] [place] [address]. 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 Gender Identity Female 2019 10:10 AM CDT Sexual Orientation Straight 2019 10 :10 AM CDT documented as of this encounter Plan of Treatment Upcoming Encounters Date Type Department Care Team (Late st Contact Info) Description 09/29/2024 4:05 PM CDT Office Visit [facility] Trans[facility] Clinic 9 [place] [phone] Martine Rios MD 500 [place], [place] [address]64175 09/29/2024 5:30 PM CDT Ancillary Procedure [facility] 909 [facility] 1st [place] [phone] Martine Rios MD 500 [place], [place] 0439[address] 10/30/2024 3:00 PM CDT Office Visit [facility] Eye [facility] 516 [facility] 9th Ny Clin 9A [place] [phone] Amadeo King MD 420 [facility] 493 [place], [place] [address] 12/05/2024 3:00 PM CDT Office Visit [facility] Eye [facility] - [facility] 516 [facility] 9th Ny Clin 9A [place] [phone] Emma Deshpande MD 516 [facility] 911 [place], [place] 771695 documented as of this encounter Visit Diagnoses Not on filedocumented in this encounter Care Teams Salvage Inspector Wood Parts Relationship Specialty Start Date End Date Martina Strickland PA-C PCP - General Physician Structural Iron Worker 07/19/19 Ailin Zavala MD Internal Medicine 07/28/11 Amadeo King MD [address] [address] Ophthalmology 12/22/19 Joseph Trivedi MD [facility] [address] [address] Rheumatology 05/21/20 Rene Grant MD 516 [place] [address] Assigned Surgical Provider 09/12/22 Manju Perkins, JENNIFER Registered Nurse 05/24/24 Martine Rios MD [address] [place] [address] Assigned Nephrology Provider 07/02/24 documented as of this encounter
--- OUTSIDE RECORDS SUMMARY | 2024-09-27 20:29 | XMS_ITS | Encounter Summary ---
Author Organization [facility] Address [address] [place] [address]. [place] [address] Care Team Providers Care Corporate Training Manager Name Role Phone Ailin Zavala MD Unavailable [phone] Martina Strickland PA-C Primary Care Provider Amadeo King MD Unavailable [phone] Joseph Trivedi MD Unavailable [phone] Rene Grant MD Unavailable [phone] Manju Perkins RN Unavailable Unavaila Martine Sr MD Unavailable [phone] Encounter Details Date Type Department Care Team (Late st Contact Info) Description 09/27/[address] 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 * Telephone Encounter - Manju Perkins RN - 09/27/2024 1:51 PM CDT RNCC spoke with Paula, as her BLE swelling has not improved. She does state that now she has noticed redness on her left foot. Below her knees, calves are tight. See MyC message re: concern for blood clot per Dr. King. Weight is currently 236. No swelling above her knees. RNCC advised that I will reach out to Dr. Rios to determine if we want to complete a US or if ED is recommended. Reviewed with Dr. Rios - recommendation for BLE US to r/o DVT, to be completed no later than 09/28. Orders placed (alternate RNCC), and scheduling was called to place priority on calling-out to Paula. documented in this encounter Plan of Treatment Upcoming Encounters Date Type Department Care Team (Late st Contact Info) Description 09/29/2024 4:05 PM CDT Office Visit [facility] [address] [place] [phone] Martine Rios MD 500 [place], [place] 97[address] 09/29/2024 5:30 PM CDT Ancillary Procedure [facility] 909 [facility] 1st [place] [phone] Martine Rios MD 500 [place] [address] 10/30/2024 3:00 PM CDT Office [facility] Eye [facility] [place] [facility] [phone] [facility] 9[facility] 9A [place] [phone] Amadeo King MD [address] [place] [address] 361325 12/05/2024 3:00 PM CDT Office Visit [facility] Eye [facility] [place] [facility] 775586 [facility] 9[facility] 9A [place] [phone] Emma Deshpande MD 516 [facility] 911 [place], [place] 597325 documented as of this encounter Visit Diagnoses Not on filedocumented in this encounter Care Teams Corporate Training Manager Relationship Specialty Start Date End Date Martina Strickland PA-C PCP - General Physician Liquor Inspector 07/19/19 Ailin Zavala MD Internal Medicine 07/28/11 Amadeo King MD [address] [place] [address] 696375 Ophthalmology 12/22/19 Joseph Trivedi MD [facility] [address] 241575 Rheumatology 05/21/20 Rene Grant MD [address] [place] [address] [id number] Assigned Surgical Provider 09/12/22 Manju Perkins, JENNIFER Registered Nurse 05/24/24 Martine Rios MD [address] [place] [address] [phone] Assigned Nephrology Provider 07/02/24 documented as of this encounter
--- OUTSIDE RECORDS SUMMARY | 2024-09-27 20:29 | XMS_ITS | Encounter Summary ---
Author Organization [facility] Address [address] [place] [address]. 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 Gender Identity Female 2019 10:10 AM CDT Sexual Orientation Straight 2019 10 :10 AM CDT documented as of this encounter Plan of Treatment Upcoming Encounters Date Type Department Care Team (Late st Contact Info) Description 09/29/2024 4:05 PM CDT Office Visit [facility] Trans[facility] Clinic 9 [place] [phone] Martine Rios MD 500 [place], [place] 449435 09/29/2024 5:30 PM CDT Ancillary Procedure [facility] 909 [facility] 1st [place] [phone] Martine Rios MD 500 [place], [place] 187235 10/30/2024 3:00 PM CDT Office Visit [facility] Eye [facility] 516 [facility] 9th Ok Clin 9A [place] [phone] Amadeo King MD 420 [facility] 493 [place], [place] 252825 12/05/2024 3:00 PM CDT Office Visit [facility] Eye [facility] 516 [facility] 9th Ok Clin 9A [place] [phone] Emma Deshpande MD 516 [facility] 911 [place], [place] 758695 documented as of this encounter Visit Diagnoses Not on filedocumented in this encounter Care Teams Direct Sales Professional Relationship Specialty Start Date End Date Martina Strickland PA-C PCP - General Physician Fuse Maker 07/19/19 Ailin Zavala MD Internal Medicine 07/28/11 Amadeo King MD [address] [address] Ophthalmology 12/22/19 Joseph Trivedi MD [facility] [address] [address] Rheumatology 05/21/20 Rene Grant MD 516 [place] [address] Assigned Surgical Provider 09/12/22 Manju Perkins, JENNIFER Registered Nurse 05/24/24 Martine Rios MD [address] [place] [address] Assigned Nephrology Provider 07/02/24 documented as of this encounter
--- OUTSIDE RECORDS SUMMARY | 2024-09-27 20:29 | XMS_ITS | Encounter Summary ---
Author Organization [facility] Address [address] [place] [address]. 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 Gender Identity Female 2019 10:10 AM CDT Sexual Orientation Straight 2019 10 :10 AM CDT documented as of this encounter Plan of Treatment Upcoming Encounters Date Type Department Care Team (Late st Contact Info) Description 09/29/2024 4:05 PM CDT Office Visit [facility] Transplant Clinic 9 [place] [phone] Martine Rios MD 500 [place], [place] 163705 09/29/2024 5:30 PM CDT Ancillary Procedure [facility] 909 [facility] 1st [place] [phone] Martine Rios MD 500 [place], [place] 218125 10/30/2024 3:00 PM CDT Office Visit [facility] Eye [facility] Emergency Department 516 [facility] 9th Mi Clin 9A [place] [phone] Amadeo King MD 420 [facility] 493 [place], [place] [address] 12/05/2024 3:00 PM CDT Office Visit [facility] Eye [facility] Emergency Department 516 [facility] 9th Mi Clin 9A [place] [phone] Emma Deshpande MD 516 [facility] 911 [place], [place] 883035 documented as of this encounter Visit Diagnoses Not on filedocumented in this encounter Care Teams Funeral Arrangement Director Relationship Specialty Start Date End Date Martina Strickland PA-C PCP - General Physician Sanitation Technician 07/19/19 Ailin Zavala MD Internal Medicine 07/28/11 Amadeo King MD [address] [address] Ophthalmology 12/22/19 Joseph Trivedi MD [facility] [address] [address] Rheumatology 05/21/20 Rene Grant MD 516 [place] [address] Assigned Surgical Provider 09/12/22 Manju Perkins, JENNIFER Registered Nurse 05/24/24 Martine Rios MD [address] [place] [address] Assigned Nephrology Provider 07/02/24 documented as of this encounter
--- OUTSIDE RECORDS SUMMARY | 2024-09-27 20:29 | XMS_ITS | Encounter Summary ---
Author Organization [facility] Address [address] [place] [address] Care Team Providers Care Supervisor Fish Processing Name Role Phone Sally Ailin Hebert MD Unavailable [phone] Martina Strickland PA-C Primary Care Provider Amadeo King MD Unavailable [phone] Amadeo King MD Unavailable [phone] Joseph Trivedi MD Unavailable [phone] Claudia Marcus MD Unavailable [phone] Kishan Spain OD Unavailable [phone] Emma Deshpande MD Unavailable [phone] Kishan Spain OD Unavailable [phone] Emma Deshpande MD Unavailable [phone] Rene Grant MD Unavailable [phone] Amadeo Winston MD Unavailable [phone] Amadeo Winston MD Unavailable [phone] Rene Grant MD Unavailable [phone] Rene Grant MD Unavailable [phone] Manju Perkins RN Unavailable Unavaila Martine Sr MD Unavailable [phone] Reason for Visit * Reason Onset Date Comments Refill Request 08/28/2020 mycophenolate (G ENERIC EQUIVALENT) 250 MG capsule and mycophenalate 500 mg Encounter Details Date Type Department Care Team (Late st Contact Info) Description 08/28/2020 Refill [facility] 516 [facility] 9th Fl Clin 9A [place] [phone] Amadeo King MD 420 [facility] 493 [place] [address] Refill Request (mycophenolate (GENERIC EQUIVALENT) 250 MG capsule and mycophenalate 500 mg) Social History Tobacco Use Types Packs/Day Years Used Date Smoking Tobacco: Never Smokeless Tobacco: Never Alcohol Use Standard Drinks/Week Comments No 0 (1 standard drink = 0.6 oz pur e alcohol) PHQ-2 Answer Date Recorded PHQ-2 Score 0 05/13/2020 Comments No Sex and Gender Information Value Date Recorded Sex Assigned at Female 2019 10:10 AM CDT 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:59 AM CLERK TYPIST Gender Identity Female 2019 10:10 AM CDT [...] Stacey Ventura - 08/28/2020 12:48 PM CDT [facility] Call Center Phone Message May a detailed message be left on voicemail: yes Reason for Call: Medication Refill Request Has the patient contacted the pharmacy for the refill? Yes Name of medication being requested: mycophenolate (GENERIC EQUIVALENT) 250 MG capsule and mycophenalate 500 mg Provider who prescribed the medication: Dr. King Pharmacy: [id number] [place], [place] - [address] [facility] [address] Date medication is needed: now-pt has 1 left. Spouse didn't tell her she was almost out. Thanks Action Taken: Message routed to: [facility] eye gen Travel Screening: Not Applicable documented in this encounter Plan of Treatment Upcoming Encounters Date Type Department Care Team (Late st Contact Info) Description 09/29/2024 4:05 PM CDT Office Visit [facility] Trans[facility] Clinic [address] [place] [phone] Martine Rios MD [address] [place] [address] 895575 09/29/2024 5:30 PM CDT Ancillary Procedure [facility] 909 [facility] 1st [place] [phone] Martine Rios MD [address] [place] [address] 834425 10/30/2024 3:00 PM CDT Office Visit [facility] Clinic [address] [phone] Amadeo King MD 420 [facility] 493 [place] [address] 12/05/2024 3:00 PM CDT Office Visit [facility] Eye [facility] 516 [facility] 9th Ma Clin 9A [place] [address] Emma Deshpande MD 516 [facility] 911 [place] [address] documented as of this encounter Visit Diagnoses Diagnosis 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 documented in this encounter Additional Health Concerns Infection Onset Date Last Indicated Resolved Time Rule Out C-difficile 07/11/2024 07/11/2024 025 11:41 PM CLERK TYPIST documented as of this encounter Care Teams Supervisor Fish Processing Relationship Specialty Start Date End Date Martina Strickland PA-C PCP - General Physician Special Projects Coordinator 07/19/19 Ailin Zavala MD Internal Medicine 07/28/11 Amadeo King MD 420 [facility] 493 [place] [address] Ophthalmology 12/22/19 Amadeo King MD 420 [facility] 493 [place] [address] Assigned PCP 04/07/20 06/02/23 Joseph Trivedi MD [facility] [address] [place] [address] Rheumatology 05/21/20 Claudia Marcus MD [facility] EYE [facility] [address] [place] [address] Assigned Surgical Provider 06/30/20 10/19/20 Kishan Spain, OD [address] [place] [address] [phone] Assigned Surgical Provider 10/20/20 11/23/20 Emma Deshpande MD [address] [place] [address] [phone] Assigned Surgical Provider 11/24/20 12/07/20 Kishan Spain, OD [address] [place] [phone] Assigned Surgical Provider 12/08/20 03/27/22 Emma Deshpande MD [address] [place] [address] 187045 Assigned Surgical Provider 03/28/22 04/03/22 Rene Grant MD [address] [place] [address] [phone] Assigned Surgical Provider 04/04/22 08/21/22 Amadeo Winston MD [address] [place] [address] 978165 Assigned Surgical Provider 08/22/22 08/28/22 Amadeo Winston MD [address] [place] [address] 133505 Assigned Surgical Provider 09/05/22 09/11/22 Rene Grant MD [address] [place] [address] 841105 Assigned Surgical Provider 08/29/22 09/04/22 Rene Grant MD [address] [place] [address] [phone] Assigned Surgical Provider 09/12/22 Manju Perkins, JENNIFER Registered Nurse 05/24/24 Martine Rios MD [address] [place] [address] [phone] Assigned Nephrology Provider 07/02/24 documented as of this encounter
[2024-09-27 20:34] LABS: Slide Review Reflex No
[2024-09-27 20:49] LABS: Albumin* 4.5 g/dL (3.3-5.0); Chloride* 106 mmol/L (96-114); Sodium* 139 mmol/L (135-149)
[2024-09-27 20:50] LABS: Potassium* 4.3 mmol/L (3.6-5.1)
[2024-09-27 20:52] LABS: Alanine Aminotransferase* 28 U/L (4-35); Alkaline Phosphatase* 58 U/L (40-150); Anion Gap 9 mEq/L (7-15); Aspartate Amino Transferase* 28 U/L (12-35); Bilirubin Total* 0.4 mg/dL (0.1-1.5); Blood Urea Nitrogen* 13 mg/dL (7-30); Carbon Dioxide* 24 mmol/L (20-32); Creatinine* 0.6 mg/dL (0.5-1.5); Est. Creatinine Clearance* 83.51; Estimated Glomerular Filt Rate 103 ml/min; Total Protein* 6.9 g/dL (6.0-8.3)
[2024-09-27 20:53] LABS: Calcium* 9.6 mg/dL (8.4-10.6); Glucose* 107 mg/dL (60-115)
[2024-09-27 21:07] LABS: NT Pro B Type NatriureticPept* 67 pg/mL
[2024-09-27 21:24] LABS: Appearance Urine Clear (Clear); Bilirubin Urine Negative (Negative); Blood Urine Negative (Negative); Color Urine Yellow (Yellow); Glucose Urine Negative (Negative); Ketones Urine Negative (Negative); Leukocyte Esterase Urine Negative (Negative); Nitrite Urine Negative (Negative); Protein Urine Negative (Negative); Specific Gravity Urine <= 1.005 (1.000-1.030); Urobilinogen Urine 0.2 (0.2-1.0); pH Urine 5.5 (5.0-8.5)
[2024-09-27 21:45] LABS: RBC Urine 0-2 (0-2); Squamous Epithelial Cell Urine Few (None-Few); WBC Urine 0-2 (0-5)
== END 2024-09-27 21:54 | disposition home or self-care (01) ==
PROVIDERS: Emergency Provider Student in an Organized Health Care Education/Training Program; PCP Physician Assistant Medical
DX: R60.9 Edema, unspecified (principal); Z79.899 Other long term (current) drug therapy
CPT/HCPCS: 36415; 80053; 81001; 83880; 84484; 85025; 93005; 93970; 99284; 99285

== ENCOUNTER 2025-01-11 08:07 | Outpatient (CLI) | payer BC, SELFPAY | END 2025-01-11 08:08 | disposition home or self-care (01) | LOC: NFLDREF 01-17 07:42 | PROVIDERS: PCP Physician Assistant Medical; Referring Provider Physician Assistant Medical; Visit Provider Physician Assistant Medical | DX: R73.03 Prediabetes (principal); E03.9 Hypothyroidism, unspecified; Z00.00 Encounter for general adult medical examination without abnormal findings; Z23 Encounter for immunization; Z13.31 Encounter for screening for depression | CPT/HCPCS: 80053; 80061; 82043; 82570; 84443 ==

== ENCOUNTER 2025-01-11 14:36 | Outpatient (CLI) | payer BC, SELFPAY ==
--- NOTE | 2025-01-11 14:40 | CRLHL7_ITS ---
For Patients: As a result of the Century Cures Act, medical imaging exams and procedure reports are released immediately into your electronic medical record. You may view this report before your referring provider. If you have questions, please contact your health care provider. INDICATION: BILATERAL SCREENING MAMMOGRAM, ASYMPTOMATIC 59 Y/O FEMALE COMPARISON: 01/06/2024, 01/20/2022, 01/01/2021 TECHNIQUE: Digital mammogram in CC and MLO projections including computer-aided detection (CAD) and tomosynthesis. BREAST COMPOSITION: The breasts are almost entirely fatty. FINDINGS: No suspicious findings. ASSESSMENT: BI-RADS 2 Benign RECOMMENDATION: Annual screening mammogram. A lay language report of this examination will be provided to the patient. Dictated by: Sarthak Oliver MD @ 01/12/2025 08:56:01 (Electronically Signed)
== END 2025-01-11 14:37 | disposition home or self-care (01) ==
LOC: MAMMO 14:36
PROVIDERS: PCP Physician Assistant Medical; Visit Provider Physician Assistant Medical
DX: Z12.31 Encounter for screening mammogram for malignant neoplasm of breast (principal)
CPT/HCPCS: 77063; 77067

== ENCOUNTER 2025-03-16 17:24 | Emergency (ER) | payer BC, SELFPAY ==
--- OUTSIDE RECORDS SUMMARY | 2025-02-02 16:25 | XMS_ITS | Encounter Summary ---
Author Organization [place] Address [address] [place] [address] Care Team Providers Care Folding Machine Setter Name Role Phone Ailin Decker MD Unavailable Martina Strickland PA-C Primary Care Provider Amadeo King MD Unavailable [phone] Joseph Trivedi MD Unavailable [phone] [facility] ed[facility] MD Unavailable [phone] Manju Perkins RN Unavailable Unavaila Martine Sr MD Unavailable [phone] Gifty Durham RN Unavailable Unavailable Emma Deshpande MD Unavailable [phone] Encounter Details Date Type Department Care Team (Late st Contact Info) Description 02/02/2025 5:25 PM CDT Lab [address] [place] [phone] Immunosuppressed status Social History Tobacco Use Types Packs/Day Years [...] AM CDT 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:59 AM MICROSTRATEGY BI DEVELOPER Gender Identity Female 2019 10:10 AM CDT Sexual Orientation Straight 2019 10 :10 AM CDT documented as of this encounter Plan of Treatment Upcoming Encounters Date Type Department Care Team (Late st Contact Info) Description 03/19/2025 3:00 PM MICROSTRATEGY BI DEVELOPER Office Visit [facility] - [address] [address] Amadeo King MD [address] [place] [address] 03/29/2025 7:45 AM MICROSTRATEGY BI DEVELOPER Lab [facility] [address] [place] [address] 05/15/2025 3:00 PM MICROSTRATEGY BI DEVELOPER Office Visit [facility] - [address] [address] Emma Deshpande MD [address] [place] [address] 911 [place] [address] documented as of this encounter Procedures Procedure Name Priority Date/Time Associated Diagnosis Comments TACROLIMUS BY TANDEM MASS SPECTROMETRY Routine 02/02/2025 5:27 PM CDT Immunosuppressed status BASIC METABOLIC PANEL Routine 02/02/2025 5:27 PM CDT Immunosuppressed status CBC WITH PLATELETS Routine 02/02/2025 5: 27 PM CDT Immunosuppressed status documented in this encounter Results * (ABNORMAL) Tacrolimus by Tandem Mass Spectrometry (02/02/2025 5:27 PM CDT) Tacrolimus by Tandem Mass Spectrometry 4.5(L) 5.0 - 15.0 ug/L 02/02/2025 10:47 PM CDT [facility] Comment: Tacrolimus [...] post transplant: 5-8 Tacrolimus Last Dose Date 02/02/2025 02/02/2025 10:47 PM CDT [facility] Tacrolimus Last Dose Time 6:30 AM 02/02/2025 10:47 PM CDT [facility] Blood STRUCTURE OF LEFT UPPER LIMB / Unknown Venipuncture / Unknown 02/02/2025 5:27 PM CDT 02/02/2025 5:27 PM CDT Narrative [facility] - 02/02/2025 10:47 PM CDT This test was developed and its performance characteristics determined by the [facility], Special Chemistry Laboratory. It has not been cleared or approved by the FDA. The laboratory is regulated under CLIA as qualified to perform high-complexity testing. This test is used for clinical purposes. It should not be regarded as investigational or for research. us Martine Rios MD LAB - BLOOD ORDERABLES Final Result [facility] 500 [facility], Room [address] [place] [id number] * CBC with platelets (02/02/2025 5:27 PM CDT) [facility] WBC Count 5.43 4.00 - 11.00 10e3/uL 02/02/2025 5:30 PM CDT [facility] RBC Count 4.34 3.80 - 5.20 10e6/uL 02/02/2025 5:30 PM CDT [facility] Hemoglobin 13.3 11.7 - 15.7 g/dL 02/02/2025 5:30 PM CDT [facility] Hematocrit 39.5 35.0 - 47.0 % 02/02/2025 5:30 PM CDT [facility] MCV 91.0 78.0 - 100.0 fL 02/02/2025 5:30 PM CDT [facility] MCH 30.6 26.5 - 33.0 pg 02/02/2025 5:30 PM CDT [facility] MCHC 33.7 31.5 - 36.5 g/dL 02/02/2025 5:30 PM CDT [facility] RDW 12.3 10.0 - 15.0 % 02/02/2025 5:30 PM CDT [facility] Platelet Count 196 150 - 450 10e3/uL 02/02/2025 5:30 PM CDT [facility] Blood STRUCTURE OF LEFT UPPER LIMB / Unknown Venipuncture / Unknown 02/02/2025 5:27 PM CDT 02/02/2025 5:27 PM CDT Martine Rios MD LAB - BLOOD ORDERABLES Final Result [facility] [address] Lab (1st floor, no room number) [place] [address], [facility] * Basic metabolic panel (02/02/2025 5:27 PM CDT) Sodium 139 135 - 145 mmol/L 02/02/2025 5:49 PM CDT [facility] Potassium 4.4 3.4 - 5.3 mmol/L 02/02/2025 5:49 PM CDT [facility] Chloride 102 98 - 107 mmol/L 02/02/2025 5:49 PM CDT [facility] Carbon Dioxide (CO2) 24 22 - 29 mmol/L 02/02/2025 5:49 PM CDT [facility] Anion Gap 13 7 - 15 mmol/L 02/02/2025 5:49 PM CDT [facility] Urea Nitrogen 14.2 8.0 - 23.0 mg/dL 02/02/2025 5:49 PM CDT [facility] Creatinine 0.72 0.51 - 0.95 mg/dL 02/02/2025 5:49 PM CDT [facility] GFR Estimate >90 >60 mL/min/1.7 3m2 02/02/2025 5:49 PM CDT [facility] Comment:eGFR calculated us2020 CKD-EPI equation. Calcium 9.7 8.8 - 10.4 mg/dL 02/02/2025 5:49 PM CDT LABORATORY Glucose 96 70 - 99 mg/dL 02/02/2025 5:49 PM CDT [facility] Blood STRUCTURE OF LEFT UPPER LIMB / Unknown Venipuncture / Unknown 02/02/2025 5:27 PM CDT 02/02/2025 5:27 PM CDT us Martine Rios MD LAB - BLOOD ORDERABLES Final Result [facility] Lab [address] Lab (1st floor, no room number) [place] [address], [facility] documented in this encounter Visit Diagnoses Diagnosis Immunosuppressed status Unspecified disorder of immune mechanism documented in this encounter Care Teams Folding Machine Setter Relationship Specialty Start Date End Date Martina Strickland PA-C PCP - General Physician Machine Stoppage Frequency Checker 07/19/19 Ailin Decker MD Internal Medicine 07/28/11 Amadeo King MD 420 [facility] 493 [place], [place] [phone] Ophthalmology 12/22/19 Joseph Trivedi MD [facility] [address] [facility] 215 [place] [address] Rheumatology 05/21/20 Rene Grant MD [address] [place] [address] Assigned Surgical Provider 09/12/22 02/28/25 Manju Perkins RN Registered Nurse 05/24/24 Martine Rios MD [address] [place] [phone] Assigned Nephrology Provider 07/02/24 Gifty Durham RN [facility], [id number] Registered Nurse Transplant 10/27/24 02/27/25 Emma Deshpande MD [address] [place] [address] 911 [place] [address] Ophthalmology 12/05/24 documented as of this encounter
--- OUTSIDE RECORDS SUMMARY | 2025-02-08 16:15 | XMS_ITS | Encounter Summary ---
Author Organization [place] Address [address] [place] [address] Care Team Providers Care Broaching Machine Operator Name Role Phone Ailin Decker MD Unavailable Martina Strickland PA-C Primary Care Provider Amadeo King MD Unavailable [phone] Joseph Trivedi MD Unavailable [phone] Rene Grant MD Unavailable [phone] Manju Perkins RN Unavailable Unavaila Martine Sr MD Unavailable [phone] Gifty Durham RN Unavailable Unavailable Emma Deshpande MD Unavailable [phone] Encounter Details Date Type Department Care Team (Late st Contact Info) Description 02/08/2025 5:15 PM CDT [facility] [address] [place] [phone] Immunosuppressed status; Limbal stem cell deficiency Social History Tobacco [...] CDT 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:59 AM SUPERVISOR STERILE PROCESSING Gender Identity Female 2019 10:10 AM CDT Sexual Orientation Straight 2019 10 :10 AM CDT documented as of this encounter Plan of Treatment Upcoming Encounters Date Type Department Care Team (Late st Contact Info) Description 03/19/2025 3:00 PM SUPERVISOR STERILE PROCESSING Office Visit [facility] [place] [id number] [facility] 9[facility] [address] [place] [address] Amadeo King MD [address] [place] [address] 493 [place] [address] 03/29/2025 7:45 AM SUPERVISOR STERILE PROCESSING Lab [facility] Laboratory [address] [place] [address] 05/15/2025 3:00 PM SUPERVISOR STERILE PROCESSING Office Visit [place] [id number] [facility] 9[facility] [address] [place] [address] Emma Deshpande MD 6 [facility] 911 [place] [address] documented as of this encounter Procedures Procedure Name Priority Date/Time Associated Diagnosis Comments TACROLIMUS BY TANDEM MASS SPECTROMETRY Routine 02/08/2025 5:21 PM CDT Immunosuppressed status Limbal stem cell deficiency BASIC METABOLIC PANEL Routine 02/08/2025 5:21 PM CDT Immunosuppressed status Limbal stem cell deficiency CBC WITH PLATELETS Routine 02/08/2025 5: 21 PM CDT Immunosuppressed status 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 Results * CBC with platelets (02/08/2025 5:21 PM CDT) WBC Count 7.22 4.00 - 11.00 10e3/uL 02/08/2025 5:25 PM CDT [facility] RBC Count 4.30 3.80 - 5.20 10e6/uL 02/08/2025 5:25 PM CDT [facility] Hemoglobin 13.1 11.7 - 15.7 g/dL 02/08/2025 5:25 PM CDT [facility] Hematocrit 39.6 35.0 - 47.0 % 02/08/2025 5:25 PM CDT [facility] MCV 92.1 78.0 - 100.0 fL 02/08/2025 5:25 PM CDT [facility] MCH 30.5 26.5 - 33.0 pg 02/08/2025 5:25 PM CDT [facility] MCHC 33.1 31.5 - 36.5 g/dL 02/08/2025 5:25 PM CDT [facility] RDW 12.2 10.0 - 15.0 % 02/08/2025 5:25 PM CDT [facility] Platelet Count 207 150 - 450 10e3/uL 02/08/2025 5:25 PM CDT [facility] Blood STRUCTURE OF RIGHT UPPER LIMB / Unknown Venipuncture / Unknown 02/08/2025 5:21 PM CDT 02/08/2025 5:21 PM CDT us Martine Rios MD LAB - BLOOD ORDERABLES Final Result [facility] Lab [address] [facility] Lab (1st floor, no room number) [place] [address], [facility] * (ABNORMAL) Tacrolimus by Tandem Mass Spectrometry (02/08/2025 5:21 PM CDT) Tacrolimus by Tandem Mass Spectrometry 4.0(L) 5.0 - 15.0 ug/L 02/09/2025 10:17 AM CDT [facility] Comment: Tacrolimus [...] post transplant: 5-8 Tacrolimus Last Dose Date 02/08/2025 02/09/2025 10:17 AM CDT [facility] Tacrolimus Last Dose Time 6:30 AM 02/09/2025 10:17 AM CDT [facility] Blood STRUCTURE OF RIGHT UPPER LIMB / Unknown Venipuncture / Unknown 02/08/2025 5:21 PM CDT 02/08/2025 5:21 PM CDT Narrative [facility] - 02/09/2025 10:17 AM CDT This test was developed and its performance characteristics determined by the [facility], Special Chemistry Laboratory. It has not been cleared or approved by the FDA. The laboratory is regulated under CLIA as qualified to perform high-complexity testing. This test is used for clinical purposes. It should not be regarded as investigational or for research. Martine Rios MD LAB - BLOOD ORDERABLES Final Result [facility] [address], [address] [place] [address], [facility] * (ABNORMAL) Basic metabolic panel (02/08/2025 5:21 PM CDT) Sodium 138 135 - 145 mmol/L 02/08/2025 5:41 PM CDT [facility] Potassium 4.5 3.4 - 5.3 mmol/L 02/08/2025 5:41 PM CDT [facility] Chloride 102 98 - 107 mmol/L 02/08/2025 5:41 PM CDT [facility] Carbon Dioxide (CO2) 26 22 - 29 mmol/L 02/08/2025 5:41 PM CDT [facility] Anion Gap 10 7 - 15 mmol/L 02/08/2025 5:41 PM CDT [facility] Urea Nitrogen 15.3 8.0 - 23.0 mg/dL 02/08/2025 5:41 PM CDT LABORATORY Creatinine 0.73 0.51 - 0.95 mg/dL 02/08/2025 5:41 PM CDT [facility] GFR Estimate >90 >60 mL/min/1.7 3m2 02/08/2025 5:41 PM CDT [facility] Comment:eGFR calculated us2020 CKD-EPI equation. Calcium 9.5 8.8 - 10.4 mg/dL 02/08/2025 5:41 PM CDT LABORATORY Glucose 113(H) 70 - 99 mg/dL 02/08/2025 5:41 PM CDT [facility] Blood STRUCTURE OF RIGHT UPPER LIMB / Unknown Venipuncture / Unknown 02/08/2025 5:21 PM CDT 02/08/2025 5:21 PM CDT Martine Rios MD LAB - BLOOD ORDERABLES Final Result [facility] Acute [facility] Lab [address] Lab (1st floor, no room number) [place] [address], [facility] documented in this encounter Visit Diagnoses Diagnosis Immunosuppressed status Unspecified disorder of immune mechanism 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 Care Teams Broaching Machine Operator Relationship Specialty Start Date End Date Martina Strickland PA-C PCP - General Physician Level Vial Setter 07/19/19 Ailin Decker MD Internal Medicine 07/28/11 Amadeo King MD 420 [facility] 493 [place], [place] [phone] Ophthalmology 12/22/19 Joseph Trivedi MD [facility] [address] [facility] 215 [place], [place] [address] Rheumatology 05/21/20 Rene Grant MD [address] [place] [address] Assigned Surgical Provider 09/12/22 02/28/25 Manju Perkins, JENNIFER Registered Nurse 05/24/24 Martine Rios MD [address] [place] [address] [phone] Assigned Nephrology Provider 07/02/24 Gifty Durham RN [facility], [id number] Registered Nurse Transplant 10/27/24 02/27/25 Emma Deshpande MD [address] [place], [place] [address] [place] [address] Ophthalmology 12/05/24 documented as of this encounter
--- OUTSIDE RECORDS SUMMARY | 2025-02-13 14:00 | XMS_ITS | Encounter Summary ---
Author Organization [place] Address [address] [place] [address] Care Team Providers Care Life Guard Name Role Phone Ailin Decker MD Unavailable Martina Strickland PA-C Primary Care Provider Amadeo King MD Unavailable [phone] Joseph Trivedi MD Unavailable [phone] Rene Grant MD Unavailable [phone] Manju Perkins RN Unavailable Unavaila Martine Sr MD Unavailable [phone] Gifty Durham RN Unavailable Unavailable Emma Deshpande MD Unavailable [phone] Reason for Visit * Reason Comments Follow Up Epiretinal membrane (ERM) of right eye Encounter Details Date Type Department Care Team (Late st Contact Info) Description 02/13/2025 3:00 PM CDT Office Visit [facility] 516 [facility] 9th Hi Clin 9[address] [place] [phone] Emma Deshpande MD 6 [facility] 911 [place] [address] Epiretinal membrane (ERM) of right eye Social [...] AM CDT 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:59 AM DRAWBRIDGE TENDER Gender Identity Female 2019 10:10 AM CDT Sexual Orientation Straight 2019 10 :10 AM CDT documented as of this encounter Progress Notes * Emma Deshpande MD - 02/13/2025 3:00 PM CDT CC - ERM INTERVAL HISTORY - had PKP & KLAL repeat 06/2024, cornea much better now vision still poor OD PMH - Paula Puga is a 59 year old female with 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, flat chamber, repair with PPV/PI combined with tube PAST OCULAR SURGERY PKP OD x multiple (~12) CE/IOL with ant vitrx OD PPV/PI/PP tube OD 09/30/18 ([facility] + [facility]) PKP + KLAL + IOL exchange OD 04/18/20 (Christine) PKP + KLAL 06/2024 (Christine) RETINAL IMAGING: OCT 02/13/2025 OD - very noisy image, severe edema, choroidal folds, likely ERM, ?SRF OS - normal retinal layers, no fluid, PHF attached U/S B-scan 02/13/25 OD - nasal RD low lying ASSESSMENT & PLAN # ERM OD # TRD OD - severe ERM noted 02/2025 - unclear onset, 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 Syneresis OS - advised S/Sx RD 02/2025 #. H/o PPV OD - s/p PPV/PI/PP tube 09/30/18 for aqueous misdirection - reitna flat on U/S - gtts per Cornea/Glaucoma #. S/p multiple PKP OD/complex cornea history - see Dr. King notes - now s/p repeat PKP & KLAL 06/2204 #. Mixed mechanism glaucoma right eye - s/p PP tube right eye on 09/30/18 - Followed with Amrit in past # NS OS - mild Return in about 2 months (around 04/15/2025) for OCT OU, Optos Photo, DFE OU, US OD. ATTESTATION Attending Attestation: Complete documentation of historical [...] patient and family Emma Deshpande MD, PhD Chiropractic Care, Vitreoretinal Surgery Department of Ophthalmology [facility] documented in this encounter Plan of Treatment Upcoming Encounters Date Type Department Care Team (Late st Contact Info) Description 03/19/2025 3:00 PM DRAWBRIDGE TENDER Office Visit [facility] [address] Hi Clin [address] [place] [address] Amadeo King MD 420 [facility] 493 [place] [address] 03/29/2025 7:45 AM DRAWBRIDGE TENDER Lab [facility] [address] [place] [address] 05/15/2025 3:00 PM DRAWBRIDGE TENDER Office Visit [facility] 516 [facility] 9th Fl Clin [address] [place] [address] Emma Deshpande MD 516 [facility] [address] [place] [address] documented as of this encounter Procedures Procedure Name Priority Date/Time Associated Diagnosis Comments ULTRASOUND B-SCAN OD (RIGHT EYE) Routine 02/13/2025 4:29 PM CDT Epiretinal membrane (ERM) of right eye FUNDUS PHOTOS OU (BOTH EYES) Routine 02/13/2025 4:29 PM CDT Epiretinal membrane (ERM) of right eye OCT RETINA SPECTRALIS OU (BOTH EYE) Routine 02/13/2025 3:59 PM CDT Epiretinal membrane (ERM) of right eye documented in this encounter Results * Ultrasound B-scan OD (right eye) (02/13/2025 4:29 PM CDT) Narrative Emma Deshpande MD - 02/13/2025 4:29 PM CDT Performed by: TLT . Patient cooperation: Reliable . Reliability of the test: Good . Test Findings: Abnormal . Interpretation: Abnormal . Plan: Monitor . Interval: Initial . Notes I viewed this imaging studay and the documentation here and in the chart note reflect my findings and interpretation. us Emma Deshpande MD OPHTHALMOLOGY Final Result * Fundus Photos OU (both eyes) (02/13/2025 4:29 PM CDT) Emma Lozoya MD - 02/13/2025 4:29 PM CDT Performed by: TLT . Patient cooperation: Reliable . Right Eye Reliability of the test: Good . Plan: Monitor . Interval: Initial . Left Eye Reliability of the test: Good . Plan: Monitor . Notes Image findings consistent with patient diagnoses as dicussed in note. us Emma Deshpande MD OPHTHALMOLOGY Final Result * OCT Retina Spectralis OU (both eyes) (02/13/2025 3:59 PM CDT) Emma Lozoya MD - 02/13/2025 3:59 PM CDT Patient cooperation: Reliable . Right Eye Reliability of the test: Good . Plan: Monitor . Interval: Same . Left Eye Reliability of the test: Good . Plan: Monitor . Interval: Same . Notes Findings and interpretation: retinal findings consistent with patient diagnoses as discussed in note us Emma Deshpande MD OPHTHALMOLOGY Final Result documented in this encounter Visit Diagnoses Diagnosis Epiretinal membrane (ERM) of right eye documented in this encounter Care Teams Life Guard Relationship Specialty Start Date End Date Martina Strickland PA-C PCP - General Physician Service Establishment Attendant 07/19/19 Ailin Decker MD Internal Medicine 07/28/11 Amadeo King MD 420 [facility] 493 [place], [place] [phone] Ophthalmology 12/22/19 Joseph Trivedi MD [facility] [address] [facility] 215 [place], [place] [address] Rheumatology 05/21/20 Rene Grant MD 516 [place], [place] [phone] Assigned Surgical Provider 09/12/22 02/28/25 Manju Perkins, JENNIFER Registered Nurse 05/24/24 Martine Rios MD 500 [place], [place] [phone] Assigned Nephrology Provider 07/02/24 Gifty Durham RN [facility], [id number] Registered Nurse Transplant 10/27/24 02/27/25 Emma Deshpande MD [address] [place] [address] [place] [address] Ophthalmology 12/05/24 documented as of this encounter
--- OUTSIDE RECORDS SUMMARY | 2025-02-28 06:30 | XMS_ITS | Encounter Summary ---
Author Organization [facility] Address [address] [place] [address]. [place] [address] Care Team Providers Care Cloth Feeder Name Role Phone Ailin Decker MD Unavailable Martina Strickland PA-C Primary Care Provider Amadeo King MD Unavailable [phone] Joseph Trivedi MD Unavailable [phone] Rene Grant MD Unavailable [phone] Manju Perkins RN Unavailable Unavaila Martine Sr MD Unavailable [phone] Emma Deshpande MD Unavailable [phone] Encounter Details Date Type Department Care Team (Late st Contact Info) Description 02/28/2025 7:30 AM CDT [facility] [address] [place] [address] Immunosuppressed status; Limbal stem cell deficiency Social [...] AM CDT 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:59 AM ARTIFICIAL INTELLIGENCE SPECIALIST Gender Identity Female 2019 10:10 AM CDT Sexual Orientation Straight 2019 10 :10 AM CDT documented as of this encounter Plan of Treatment Upcoming Encounters Date Type Department Care Team (Late st Contact Info) Description 03/19/2025 3:00 PM ARTIFICIAL INTELLIGENCE SPECIALIST Office Visit [facility] - [address] [address] Amadeo King MD [address] [address] 03/29/2025 7:45 AM ARTIFICIAL INTELLIGENCE SPECIALIST Lab [facility] [id number] [place] [address] 05/15/2025 3:00 PM ARTIFICIAL INTELLIGENCE SPECIALIST Office Visit [address] [address] Emma Deshpande MD [address] [place] [address] [address] [place] [address] documented as of this encounter Procedures Procedure Name Priority Date/Time Associated Diagnosis Comments TACROLIMUS BY TANDEM MASS SPECTROMETRY Routine 02/28/2025 7:33 AM CDT Limbal stem cell deficiency BASIC METABOLIC PANEL Routine 02/28/2025 7:33 AM CDT Immunosuppressed status CBC WITH PLATELETS Routine 02/28/2025 7: 33 AM CDT Immunosuppressed status documented in this encounter Results * Tacrolimus by Tandem Mass Spectrometry (02/28/2025 7:33 AM CDT) Tacrolimus by Tandem Mass Spectrometry 5.6 5.0 - 15.0 ug/L 02/28/2025 5:48 PM CDT [facility] Comment: Tacrolimus [...] post transplant: 5-8 Tacrolimus Last Dose Date 02/28/2025 5:48 PM CDT [facility] Tacrolimus Last Dose Time 6:30 PM 02/28/2025 5:48 PM CDT [facility] Blood BLOOD SPECIMEN / Unknown Venipuncture / Unknown 02/28/2025 7:33 AM CDT 02/28/2025 7:34 AM CDT Narrative [facility] - 02/28/2025 5:48 PM CDT This test was developed and its performance characteristics determined by the [facility], Special Chemistry Laboratory. It has not been cleared or approved by the FDA. The laboratory is regulated under CLIA as qualified to perform high-complexity testing. This test is used for clinical purposes. It should not be regarded as investigational or for research. Martine Rios MD LAB - BLOOD ORDERABLES Final Result [facility] [address] [facility] [address] [facility], Room [address] [place] [phone] * (ABNORMAL) Basic metabolic panel (02/28/2025 7:33 AM CDT) Sodium 140 135 - 145 mmol/L 02/28/2025 6:07 PM CDT [facility] Potassium 4.5 3.4 - 5.3 mmol/L 02/28/2025 6:07 PM CDT [facility] Chloride 107 98 - 107 mmol/L 02/28/2025 6:07 PM CDT [facility] Carbon Dioxide (CO2) 21(L) 22 - 29 mmol/L 02/28/2025 6:07 PM CDT [facility] Anion Gap 12 7 - 15 mmol/L 02/28/2025 6:07 PM CDT [facility] Urea Nitrogen 15.1 8.0 - 23.0 mg/dL 02/28/2025 6:07 PM CDT [facility] Creatinine 0.74 0.51 - 0.95 mg/dL 02/28/2025 6:07 PM CDT [facility] GFR Estimate >90 >60 mL/min/1.7 3m2 02/28/2025 6:07 PM CDT [facility] Comment:eGFR calculated 2020 CKD-EPI equation. Calcium 9.6 8.8 - 10.4 mg/dL 02/28/2025 6:07 PM CDT [facility] Glucose 114(H) 70 - 99 mg/dL 02/28/2025 6:07 PM CDT [facility] Blood BLOOD SPECIMEN / Unknown Venipuncture / Unknown 02/28/2025 7:33 AM CDT 02/28/2025 7:34 AM CDT Martine Rios MD LAB - BLOOD ORDERABLES Final Result [facility] [address] [facility], [address] [place] [address], [facility] * CBC with platelets (02/28/2025 7:33 AM CDT) WBC Count 5.18 4.00 - 11.00 10e3/uL 02/28/2025 7:36 AM CDT [facility] RBC Count 4.38 3.80 - 5.20 10e6/uL 02/28/2025 7:36 AM CDT [facility] Hemoglobin 13.4 11.7 - 15.7 g/dL 02/28/2025 7:36 AM CDT [facility] Hematocrit 39.3 35.0 - 47.0 % 02/28/2025 7:36 AM CDT LABORATORY MCV 89.7 78.0 - 100.0 fL 02/28/2025 7:36 AM CDT LABORATORY MCH 30.6 26.5 - 33.0 pg 02/28/2025 7:36 AM CDT LABORATORY MCHC 34.1 31.5 - 36.5 g/dL 02/28/2025 7:36 AM CDT LABORATORY RDW 11.6 10.0 - 15.0 % 02/28/2025 7:36 AM CDT LABORATORY Platelet Count 166 150 - 450 10e3/uL 02/28/2025 7:36 AM CDT [facility] Blood BLOOD SPECIMEN / Unknown Venipuncture / Unknown 02/28/2025 7:33 AM CDT 02/28/2025 7:34 AM CDT us Martine Rios MD LAB - BLOOD ORDERABLES Final Result LABORATORY [facility] [place] [facility] [address] [facility] (no room number, 1st floor of clinic) [place] [address], [facility] documented in this encounter Visit Diagnoses Diagnosis Immunosuppressed status Unspecified disorder of immune mechanism 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 Care Teams Cloth Feeder Relationship Specialty Start Date End Date Martina Strickland PA-C PCP - General Physician Appian Developer 07/19/19 Ailin Decker MD Internal Medicine 07/28/11 Amadeo King MD [address] [place] [address] [address] [place], [place] [phone] Ophthalmology 12/22/19 Joseph Trivedi MD [facility] [address] [facility] [address] [place], [place] [address] Rheumatology 05/21/20 Rene Grant MD [address] [place] [address] [phone] Assigned Surgical Provider 09/12/22 02/28/25 Manju Perkins, JENNIFER Registered Nurse 05/24/24 Martine Rios MD [address] [place] [address] [phone] Assigned Nephrology Provider 07/02/24 Emma Deshpande MD [address] [place], [place] [address] [place], [place] [phone] Ophthalmology 12/05/24 documented as of this encounter
--- OUTSIDE RECORDS SUMMARY | 2025-03-16 17:26 | XMS_ITS | Clinical Summary ---
Author Organization [facility] Address [address] [place] [address] Care Team Providers Care Jailor Name Role Phone Martina Strickland PA-C Primary Care Provider [phone] Allergies Active Allergy Reactions Criticality Noted Date [...] daily with meals. Active medication order composer Mott oil 1000 mg daily Active UBIDECARENONE (COQ-10 [...] 12 hours. 240 capsule 04/18/2019 10:31 AM MEAT TEAM LEAD 9 Active trimethoprim-nolan lfamethoxazole, 80-400 mg, (BACTRIM SS; SEPTRA SS) tab Take 1 tablet by mouth once daily. 30 tablet 04/18/2019 10:31 AM MEAT TEAM LEAD 9 Active omeprazole (PRILOSEC) 20 mg Delayed-Release capsule Take 1 capsule by mouth once daily before a meal. 30 capsule 1 04/18/2019 10:31 AM MEAT TEAM LEAD 9 Active predniSONE (DELTASONE) 20 mg tablet Take 3 tablets by mouth once daily with a meal. 90 tablet 1 04/18/2019 10:31 AM MEAT TEAM LEAD 9 Active tacrolimus (PROGRAF) 1 mg capsule Take 1 capsule by mouth once daily in the evening. 30 capsule 1 04/18/2019 10:31 AM MEAT TEAM LEAD 9 Active ofloxacin 0.3 % ophthalmic (OCUFLOX) 0.3 % ophthalmic solution Place 1 Drop in surgical eye 4 times daily. 5 mL 04/18/2019 10:31 AM MEAT TEAM LEAD 9 Active valGANciclovir (VALCYTE) 450 mg tablet Take 1 tablet by mouth once daily with a meal. 30 tablet 1 9 Active CYCLOSPORINE 1% IN ARTIFICAL TEARS (AHC AMB MIX) Place 1 Drop into right eye 4 times daily. Refrigerate. Expires: . 5 mL 6 06/30/2021 4:30 PM MEAT TEAM LEAD 2 Active insulin 1 unit/mL ophthalmic solution Place 1 Drop into right eye four times daily. Refrigerate. Protect from light. Bottle expires: . 10 mL 4 03/22/2024 3:12 PM MEAT TEAM LEAD 4 Active Social History Tobacco Use Types Packs/Day Years Used Date Smoking Tobacco: Never Smokeless Tobacco: Never Alcohol Use Standard Drinks/Week Comments No 0 (1 standard drink = 0.6 oz pur e alcohol) rare Comments No Sex and Gender Information Value Date Recorded Sex Assigned at Not on file Legal Sex Female 6:57 AM MEAT TEAM LEAD Gender Identity Not on file Sexual Orientation Not on file Obstetrics History Last Filed Vital Signs Vital Sign Reading Time Taken Comments Blood Pressure 123/75 04/18/2019 2:56 PM MEAT TEAM LEAD Pulse 102 04/18/2019 2:56 PM MEAT TEAM LEAD Temperature 35.7 C (96.3 F) 04/18/2019 12:56 PM MEAT TEAM LEAD Respiratory Rate 16 04/18/2019 2:56 PM MEAT TEAM LEAD Oxygen Saturation 94% 04/18/2019 2:56 PM MEAT TEAM LEAD Inhaled Oxygen Concentration - - Weight 110.8 kg (244 lb 3 oz) 04/17/2019 12:09 P M MEAT TEAM LEAD Height 161 cm (5' 3.39) 04/17/2019 12:09 PM MEAT TEAM LEAD Body Mass Index 42.73 04/17/2019 12:09 PM MEAT TEAM LEAD Plan of Treatment Health Maintenance Due Date Last Done Comments Tetanus booster 1976 Depression screening for age 12+ 1977 HIV for age 15-65 1980 BMI (ht and wt on same day) for age 18+ 07/22/1983 Hepatitis C screening for ag e 18-79 07/22/1983 Hepatitis B series for 19+ ( 1 of 3 - 19+ 3-dose series) 1984 Colonoscopy through age 75 2010 Lipids for age 45-75 2010 Mammogram for age 45-75 2010 Pneumococcal series for age 50+ (1 of 1 - PCV) 07/22/2015 Zoster (shingles) series for age 50+ (1 of 2) 07/22/2015 Pap test for age 21-65 11/09/2023 , 11/08/2020, 11/26/2017, Additional history exists Influenza Vaccine (#1) 2025 RSV vaccine for adults or (1 - 1-dose 75+ series) 2040 Medical Devices Implanted Type Area Records Supervisor Device Identifier Shelf Expiration Date Model / Serial / Lot Cornea [place] Lions Eye - [id number] Implanted:Qty: 1 on 07/05/2017 by Ronni Horton MD at [facility] Right: Eye [facility] Eye Bank 07/09/2017 CORNEA#18- [id number]-OD-C / [id number] -C / Allograft 3.5x3.5cm F Amniograft - [id number] Implanted:Qty: 1 on 07/05/2017 by Rogelio Galvan MD at [facility] Right: Eye [employer] 02/02/2019 [id number]# / [id number] / Description:[id number] SERIAL NUMBER Plate Glaucoma Valve Flex Ahmed Silcn - [id number] Implanted:Qty: 1 on 09/30/2018 by Claudia Marcus MD at [facility] Right: Eye [employer] 08/14/2020 FP7# / [id number] / [id number] Cornea 9.0mm+ Visiongraft W/O Scleral Rim Half - [id number] Implanted:Qty: 1 on 09/30/2018 by Claudia Marcus MD at [facility] Right: Eye [employer] 08/31/2020 [id number] # / [id number] / Description:DIN: [id number] FIN (P): [id number] Cornea [facility] Eye - [id number] Os-C Implanted:Qty: 1 on 04/18/2019 by Amadeo King MD at [facility] Right: Eye [facility] Eye Bank 04/26/2019 CORNEA# / 0 OS-C / Cornea [facility] Eye - [id number] Od-C Implanted:Qty: 1 on 04/18/2019 by Amadeo King MD at [facility] Right: Eye [facility] Eye Bank 04/26/2019 CORNEA# / 0 OD-C / Iol [place] +21 Tecnis [id number] - [id number] Implanted:Qty: 1 on 04/18/2019 by Amadeo King MD at [facility] Right: Eye [employer] 01/26/2024 [id number] 21.0# / [id number] / Allograft 3.5x3.5cm F Amniograft - [id number] Implanted:Qty: 1 on 04/18/2019 by Amadeo King MD at [facility] Right: Eye [employer] 11/07/2020 [id number]# / [id number] / Procedures Procedure Name Priority Date/Time Associated Diagnosis Comments WEB SITE ADMIN THIN PREP PAP SCREEN IMAGED Routine 11/08/2020 1:30 PM CDT from Last 3 Months or Most Recently Relevant to Health Maintenance Results * WEB SITE ADMIN THIN PREP PAP SCREEN IMAGED (11/08/2020 1:30 PM CDT) Case Report Gynecologic Cytology Report Case: [id number] Authorizing Provider: Martina Strickland PA-C Collected: 11/08/2020 1330 Ordering Location: [facility] Received: 11/11/2020 1612 First Screen: Isabella Garcia Specimen: WEB SITE ADMIN ThinPrep Vial Screening, Cervical/Vaginal 11/21/2020 6:20 PM CDT [facility] INTERPRETATION/ RESULT NEGATIVE FOR INTRAEPITHELIAL LESION OR MALIGNANCY (NIL) (none) 11/21/2020 6:20 PM CDT [facility] at 1820 CDT SPECIMEN ADEQUACY Satisfactory for evaluation Endocervical component present 11/21/2020 6:20 PM CDT [facility] HPV REQUEST HPV and PAP 11/21/2020 6:20 PM CDT [facility] Date of LMP 11/21/2020 6:20 PM CDT [facility] Comment:unknown Last Pap Date 11/26/2017 11/21/2020 6:20 PM CDT [facility] Last Pap Result NIL 6:20 PM CDT [facility] Additional Information 11/21/2020 6:20 PM CDT [facility] Comment: Interpreted at [facility], Central Laboratory - [address], [place] [address] Automated Review Successful 11/21/2020 6:20 PM CDT [facility]- ENTRAL LABORATORY Comment:Specimen processed s uccessfully by automated applied biology professor device, Le[employer] Launch VenturesPrep Imaging System, [employer] ANCILLARY TESTING WEB SITE ADMIN HPV Ordered, Please see separate report 11/21/2020 6:20 PM CDT [facility]- ENTRAL LABORATORY Note The pap test is [...] and malignant lesions. 11/21/2020 6:20 PM CDT [facility] ENTRCT LABORATORY Other (Cervical/Vagina l) 11/08/2020 1:30 PM CDT 11/11/2020 4:12 PM CDT us Martina Strickland PA-C PATHOLOGY/CYTOLOGY Final Res ult [facility] [address] [place] [address], [place] from Last 3 Months or Most Recently Relevant to Health Maintenance Insurance [facility] NON-DC-[facility] [place] [address] LUIS A PARKS Advance Directives * Full Code (Latest Code [...] 6:36 AM 07/05/2017 3:03 PM Care Teams Jailor Relationship Specialty Start Date End Date Martina Strickland PA-C [address] [place] [address] PCP - General Emergency Medicine 04/17/19
--- OUTSIDE RECORDS SUMMARY | 2025-03-16 17:27 | XMS_ITS | Encounter Summary ---
Author Organization [facility] Address [address] [place] [address] Care Team Providers Care Video Surveillance Technician Name Role Phone Ailin Decker MD Unavailable Martina Strickland PA-C Primary Care Provider Amadeo King MD Unavailable [phone] Joseph Trivedi MD Unavailable [phone] Rene Grant MD Unavailable [phone] Manju Perkins RN Unavailable Unavaila Martine Sr MD Unavailable [phone] Gifty Durham RN Unavailable Unavailable Emma Deshpande MD Unavailable [phone] Encounter Details Date Type Department Care Team (Late st Contact Info) Description 02/05/2025 [facility] Only [facility] [address] [place] [address] Manju Perkins, RN Immunosuppressed status (Primary Dx); Limbal stem cell deficiency Social History Tobacco [...] AM CDT 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:59 AM FERRYBOAT PILOT Gender Identity Female 2019 10:10 AM CDT Sexual Orientation Straight 2019 10 :10 AM CDT documented as of this encounter Plan of Treatment Upcoming Encounters Date Type Department Care Team (Late st Contact Info) Description 03/19/2025 3:00 PM FERRYBOAT PILOT Office Visit [address] [address] Amadeo King MD [address] [place] [address] 03/29/2025 7:45 AM FERRYBOAT PILOT Lab [facility] Laboratory [address] [place] [address] 05/15/2025 3:00 PM FERRYBOAT PILOT Office Visit [address] [address] Emma Deshpande MD [address] [place] [address] [address] [place], [place] [address] documented as of this encounter Results * CBC with platelets (02/08/2025 5:21 PM CDT) [facility] WBC Count 7.22 4.00 - 11.00 10e3/uL [...] - BLOOD ORDERABLES Final Result [facility] [address] [facility] Lab (1st floor, no room number) [place] [address], [facility] * (ABNORMAL) Tacrolimus by Tandem Mass [...] and its performance characteristics determined by the [facility], Special Chemistry Laboratory. It has not been cleared or approved by the FDA. The laboratory is regulated under CLIA as qualified to perform high-complexity testing. This test is used for clinical purposes. It should not be regarded as investigational or for research. Martine Rios MD LAB - BLOOD ORDERABLES Final Result [facility] [address] [facility], Room [address] [place] [address], [facility] * (ABNORMAL) Basic metabolic panel (02/08/2025 5:21 PM CDT) Sodium 138 135 - 145 mmol/L 02/08/2025 5:41 PM CDT LABORATORY Potassium 4.5 3.4 - 5.3 mmol/L 02/08/2025 5:41 PM CDT [facility] Chloride 102 98 - 107 mmol/L 02/08/2025 5:41 PM CDT [facility] Carbon Dioxide (CO2) 26 22 - 29 mmol/L 02/08/2025 5:41 PM CDT [facility] Anion Gap 10 7 - 15 mmol/L 02/08/2025 5:41 PM CDT [facility] Urea Nitrogen 15.3 8.0 - 23.0 mg/dL 02/08/2025 5:41 PM CDT [facility] Creatinine 0.73 0.51 - 0.95 mg/dL 02/08/2025 5:41 PM CDT [facility] GFR Estimate >90 >60 mL/min/1.7 3m2 02/08/2025 5:41 PM CDT [facility] Comment:eGFR calculated usin 2020 CKD-EPI equation. Calcium 9.5 8.8 - 10.4 mg/dL 02/08/2025 5:41 PM CDT [facility] Glucose 113(H) 70 - 99 mg/dL 02/08/2025 5:41 PM CDT [facility] Blood STRUCTURE OF RIGHT UPPER LIMB / Unknown Venipuncture / Unknown 02/08/2025 5:21 PM CDT 02/08/2025 5:21 PM CDT Martine Rios MD LAB - BLOOD ORDERABLES Final Result LABORATORY [facility] [address] Lab (1st floor, no room number) [place] [address], [facility] documented in this encounter Visit Diagnoses Diagnosis Immunosuppressed status- Primary Unspecified disorder of immune mechanism 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 Care Teams Video Surveillance Technician Relationship Specialty Start Date End Date Martina Strickland PA-C PCP - General Physician Yard Rigger 07/19/19 Ailin Decker MD Internal Medicine 07/28/11 Amadeo King MD [address] [facility] 493 [place], [place] [phone] Ophthalmology 12/22/19 Joseph Trivedi MD [facility] [address] [facility] [address] [place], [place] [address] Rheumatology 05/21/20 Rene Grant MD [address] [place] [address] [phone] Assigned Surgical Provider 09/12/22 02/28/25 Manju Perkins, JENNIFER Registered Nurse 05/24/24 Martine Rios MD [address] [place] [address] Assigned Nephrology Provider 07/02/24 Gifty Durham RN [place] [facility], [address] Registered Nurse Transplant 10/27/24 02/27/25 Emma Deshpande MD [address] [place] [address] [address] [place], [place] [phone] Ophthalmology 12/05/24 documented as of this encounter
--- OUTSIDE RECORDS SUMMARY | 2025-03-16 17:27 | XMS_ITS | Encounter Summary ---
Author Organization [facility] Address [address] [place] [address]. [place] [address] Care Team Providers Care Bag Bailer Name Role Phone Ailin Decker MD Unavailable Martina Strickland PA-C Primary Care Provider Amadeo King MD Unavailable [phone] Joseph Trivedi MD Unavailable [phone] Rene Grant MD Unavailable [phone] Manju Perkins RN Unavailable Unavaila Martine Sr MD Unavailable [phone] Gifty Durham RN Unavailable Unavailable Emma Deshpande MD Unavailable [phone] Emma Deshpande MD Unavailable [phone] Encounter Details Date Type Department Care Team (Late st Contact Info) Description 02/05/2025 Results Follow-Up [facility] [address] [place] [address] Manju Perkins, RN Subj: Message [...] AM CDT 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:59 AM ENGAGEMENT ENGINEER Gender Identity Female 2019 10:10 AM CDT Sexual Orientation Straight 2019 10 :10 AM CDT documented as of this encounter Plan of Treatment Upcoming Encounters Date Type Department Care Team (Late st Contact Info) Description 03/19/2025 3:00 PM ENGAGEMENT ENGINEER Office Visit [address] [address] Amadeo King MD 420 [facility] 493 [place] [address] 03/29/2025 7:45 AM ENGAGEMENT ENGINEER Lab [facility] Laboratory [address] [place] [address] 05/15/2025 3:00 PM ENGAGEMENT ENGINEER Office Visit [facility] [address] [address] [place] [address] Emma Deshpande MD 6 [facility] 911 [place] [address] documented as of this encounter Visit Diagnoses Not on filedocumented in this encounter Care Teams Bag Bailer Relationship Specialty Start Date End Date Martina Strickland PA-C PCP - General Physician Banana Grader 07/19/19 Ailin Decker MD Internal Medicine 07/28/11 Amadeo King MD 420 [facility] 493 [place], [place] [address] Ophthalmology 12/22/19 Joseph Trivedi MD [facility] [address] [facility] [address] [place], [place] [address] Rheumatology 05/21/20 Rene Grant MD [address] [place] [address] [id number] Assigned Surgical Provider 09/12/22 02/28/25 Manju Perkins, JENNIFER Registered Nurse 05/24/24 Martine Rios MD [address] [place] [phone] Assigned Nephrology Provider 07/02/24 Gifty Durham RN [facility], [address] Registered Nurse Transplant 10/27/24 02/27/25 Emma Deshpande MD [address] [place] [address] Ophthalmology 12/05/24 Emma Deshpande MD [address] [place] [address] 425385 Assigned Surgical Provider 03/01/25 documented as of this encounter
--- OUTSIDE RECORDS SUMMARY | 2025-03-16 17:27 | XMS_ITS | Encounter Summary ---
Author Organization [facility] Address [address] [place] [address] Care Team Providers Care Electrician Aircraft Name Role Phone Ailin Decker MD Unavailable Martina Strickland PA-C Primary Care Provider Amadeo King MD Unavailable [phone] Joseph Trivedi MD Unavailable [phone] [facility] MD Unavailable +[phone] Manju Perkins RN Unavailable Unavaila Martine Sr MD Unavailable +[phone] Gifty Durham RN Unavailable Unavailable Emma Deshpande MD Unavailable [phone] Encounter Details Date Type Department Care Team (Latest Contact Info) Description 02/08/2025 Travel Social History Tobacco Use Types Packs/Day [...] AM CDT 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:59 AM HOOK UP DRIVER Gender Identity Female 2019 10:10 AM CDT Sexual Orientation Straight 2019 10 :10 AM CDT documented as of this encounter Plan of Treatment Upcoming Encounters Date Type Department Care Team (Late st Contact Info) Description 03/19/2025 3:00 PM HOOK UP DRIVER Office Visit [facility] [place] [id number] [address] [place] [address] Amadeo King MD [address] [place] [address] 03/29/2025 7:45 AM HOOK UP DRIVER Lab [facility] [address] [place] [address] 05/15/2025 3:00 PM HOOK UP DRIVER Office Visit [facility] [place] 020816 [facility] [address] [address] Emma Deshpande MD [address] [place] [address] 911 [place] [address] documented as of this encounter Visit Diagnoses Not on filedocumented in this encounter Care Teams Electrician Aircraft Relationship Specialty Start Date End Date Martina Strickland PA-C PCP - General Physician Cafeteria Food Server 07/19/19 Ailin Decker MD Internal Medicine 07/28/11 Amadeo King MD 420 [facility] 493 [place], [place] 785795 Ophthalmology 12/22/19 Joseph Trivedi MD [facility] [address] [facility] 215 [place], [place] 927185 Rheumatology 05/21/20 Rene Grant MD [address] [place] [address] [id number] Assigned Surgical Provider 09/12/22 02/28/25 Manju Perkins, JENNIFER Registered Nurse 05/24/24 Martine Rios MD [address] [place] [address] [phone] Assigned Nephrology Provider 07/02/24 Gifty Durham RN [place] [facility], [address] Registered Nurse Transplant 10/27/24 02/27/25 Emma Deshpande MD [address] [place] [address] 911 [place], [place] 894355 Ophthalmology 12/05/24 documented as of this encounter
--- OUTSIDE RECORDS SUMMARY | 2025-03-16 17:27 | XMS_ITS | Encounter Summary ---
Author Organization [facility] Address [address] [place] [address] Care Team Providers Care Kettleman Name Role Phone Ailin Decker MD Unavailable Martina Strickland PA-C Primary Care Provider Amadeo King MD Unavailable [phone] Joseph Trivedi MD Unavailable [phone] [facility] Unavailable [phone] Manju Perkins RN Unavailable Unavaila Martine Sr MD Unavailable [phone] Gifty Durham RN Unavailable Unavailable Emma Deshpande MD Unavailable [phone] Encounter Details Date Type Department Care Team (Latest Contact Info) Description 02/12/2025 Travel Social History Tobacco Use Types Packs/Day [...] AM CDT 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:59 AM ENGINEERING DOCUMENTATION SPECIALIST Gender Identity Female 2019 10:10 AM CDT Sexual Orientation Straight 2019 10 :10 AM CDT documented as of this encounter Plan of Treatment Upcoming Encounters Date Type Department Care Team (Late st Contact Info) Description 03/19/2025 3:00 PM ENGINEERING DOCUMENTATION SPECIALIST Office Visit [facility] [place] [id number] [address] [place] [address] Amadeo King MD [address] [place] [address] 03/29/2025 7:45 AM ENGINEERING DOCUMENTATION SPECIALIST Lab [facility] [address] [place] [address] 05/15/2025 3:00 PM ENGINEERING DOCUMENTATION SPECIALIST Office Visit [facility] [place] 524516 [facility] [address] [address] Emma Deshpande MD [address] [place] [address] 911 [place] [address] documented as of this encounter Visit Diagnoses Not on filedocumented in this encounter Care Teams Kettleman Relationship Specialty Start Date End Date Martina Strickland PA-C PCP - General Physician Color Expert 07/19/19 Ailin Decker MD Internal Medicine 07/28/11 Amadeo King MD 420 [facility] 493 [place], [place] 278245 Ophthalmology 12/22/19 Joseph Trivedi MD [facility] [address] [facility] 215 [place], [place] 304065 Rheumatology 05/21/20 Rene Grant MD [address] [place] [address] 867815 Assigned Surgical Provider 09/12/22 02/28/25 Manju Perkins, JENNIFER Registered Nurse 05/24/24 Martine Rios MD [address] [place] [address] [phone] Assigned Nephrology Provider 07/02/24 Gifty Durham RN [place] [facility], [id number] Registered Nurse Transplant 10/27/24 02/27/25 Emma Deshpande MD [address] [place] [address] 911 [place], [place] 087225 Ophthalmology 12/05/24 documented as of this encounter
--- OUTSIDE RECORDS SUMMARY | 2025-03-16 17:27 | XMS_ITS | Encounter Summary ---
Author Organization [facility] Address [address] [place] [address] 13806 Care Team Providers Care Newspaper Subscription Solicitor Name Role Phone Ailin Decker MD Unavailable Martina Strickland PA-C Primary Care Provider Amadeo King MD Unavailable [phone] Joseph Trivedi MD Unavailable [phone] Rene Grant MD Unavailable [phone] Manju Perkins RN Unavailable Unavaila Martine Sr MD Unavailable [phone] Gifty uDrham RN Unavailable Unavailable Emma Deshpande MD Unavailable [phone] Emma Deshpande MD Unavailable + [phone] Encounter Details Date Type Department Care Team (Late st Contact Info) Description 02/07/2025 [facility] [address] 4th [place] [address] Robles Elizalde Social History Tobacco Use Types Packs/Day Years [...] AM CDT 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:59 AM OPTICAL MANAGER Gender Identity Female 2019 10:10 AM CDT Sexual Orientation Straight 2019 10 :10 AM CDT documented as of this encounter Plan of Treatment Upcoming Encounters Date Type Department Care Team (Late st Contact Info) Description 03/19/2025 3:00 PM OPTICAL MANAGER Office [facility] - [address] [address] Amadeo King MD [address] [place] [address] 03/29/2025 7:45 AM OPTICAL MANAGER Lab [facility] Laboratory [address] [place] [address] 05/15/2025 3:00 PM OPTICAL MANAGER Office [facility] - [address] [address] Emma Deshpande MD [address] [place] [address] 911 [place] [address] documented as of this encounter Visit Diagnoses Not on filedocumented in this encounter Care Teams Newspaper Subscription Solicitor Relationship Specialty Start Date End Date Martina Strickland PA-C PCP - General Physician Campaign Coordinator 07/19/19 Ailin Decker MD Internal Medicine 07/28/11 Amadeo King MD [address] [place] [address] 493 [place], [place] 758205 Ophthalmology 12/22/19 Joseph Trivedi MD [facility] [address] [facility] 215 [place], [place] 456605 Rheumatology 05/21/20 Rene Grant MD [address] [place] [address] 890235 Assigned Surgical Provider 09/12/22 02/28/25 Manju Perkins, JENNIFER Registered Nurse 05/24/24 Martine Rios MD [address] [place] [address] [phone] Assigned Nephrology Provider 07/02/24 Gifty Durham RN [facility] [facility], [address] Registered Nurse Transplant 10/27/24 02/27/25 Emma Deshpande MD [address] [place] [address] 704945 Ophthalmology 12/05/24 Emma Deshpande MD [address] [place] [address] [phone] Assigned Surgical Provider 03/01/25 documented as of this encounter
--- OUTSIDE RECORDS SUMMARY | 2025-03-16 17:27 | XMS_ITS | Encounter Summary ---
Author Organization [facility] Address [address] [place] [address] Care Team Providers Care Fabric Lay Out Worker Name Role Phone Ailin Decker MD Unavailable Martina Strickland PA-C Primary Care Provider Amadeo King MD Unavailable [phone] Joseph Trivedi MD Unavailable [phone] Rene Grant MD Unavailable [phone] Manju Perkins RN Unavailable Unavaila Martine Sr MD Unavailable [phone] Gifty Durham RN Unavailable Unavailable Emma Deshpande MD Unavailable [phone] Encounter Details Date Type Department Care Team (Late st Contact Info) Description 02/06/2025 [facility] Only [facility] 9 [place] [address] Manju Perkins, RN Limbal stem cell deficiency; Immunosuppressed status Social History Tobacco Use Types [...] AM CDT 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:59 AM WEARING APPAREL SHAKER Gender Identity Female 2019 10:10 AM CDT Sexual Orientation Straight 2019 10 :10 AM CDT documented as of this encounter Plan of Treatment Upcoming Encounters Date Type Department Care Team (Late st Contact Info) Description 03/19/2025 3:00 PM WEARING APPAREL SHAKER Office Visit [address] [address] Amadeo King MD [address] [place] [address] 03/29/2025 7:45 AM WEARING APPAREL SHAKER Lab [facility] [address] [place] [address] 05/15/2025 3:00 PM WEARING APPAREL SHAKER Office Visit [address] [address] Emma Deshpande MD 6 [facility] 911 [place] [address] documented as of this encounter Visit Diagnoses Diagnosis Limbal stem cell deficiency Immunosuppressed status Unspecified disorder of immune mechanism documented in this encounter Care Teams Fabric Lay Out Worker Relationship Specialty Start Date End Date Martina Strickland PA-C PCP - General Physician Corporate Travel Expert 07/19/19 Ailin Decker MD Internal Medicine 07/28/11 Amadeo King MD 420 [facility] 493 [place], [place] 6[address]25 Ophthalmology 12/22/19 Joseph Trivedi MD [facility] [address] [facility] 215 [place], [place] 277015 Rheumatology 05/21/20 Rene Grant MD [address] [place] [address] 655345 Assigned Surgical Provider 09/12/22 02/28/25 Manju Perkins, JENNIFER Registered Nurse 05/24/24 Martine Rios MD [address] [place] [address] Assigned Nephrology Provider 07/02/24 Gifty Durham RN [place] [facility], [address] Registered Nurse Transplant 10/27/24 02/27/25 Emma Deshpande MD [address] [place] [address] 911 [place], [place] 344095 Ophthalmology 12/05/24 documented as of this encounter
--- OUTSIDE RECORDS SUMMARY | 2025-03-16 17:27 | XMS_ITS | Encounter Summary ---
Author Organization [facility] Address [address] [place] [address] Care Team Providers Care Filler And Trimmer Name Role Phone Ailin Decker MD Unavailable Martina Strickland PA-C Primary Care Provider Amadeo King MD Unavailable [phone] Joseph Trivedi MD Unavailable [phone] Rene Grant MD Unavailable [phone] Manju Perkins RN Unavailable Unavaila Martine Sr MD Unavailable [phone] Gifty Durham RN Unavailable Unavailable Emma Deshpande MD Unavailable [phone] Emma Deshpande MD Unavailable + [phone] Encounter Details Date Type Department Care Team (Late st Contact Info) Description 01/18/2025 [facility] Medical Advice Initial Department 2450 [place] [address] Manju Perkins, RN Social History Tobacco Use [...] AM CDT 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:59 AM BIOMETRICS EXPERIMENTALIST Gender Identity Female 2019 10:10 AM CDT Sexual Orientation Straight 2019 10 :10 AM CDT documented as of this encounter Plan of Treatment Upcoming Encounters Date Type Department Care Team (Late st Contact Info) Description 03/19/2025 3:00 PM BIOMETRICS EXPERIMENTALIST Office Visit [address] [address] Amadeo King MD [address] [place] [address] 03/29/2025 7:45 AM BIOMETRICS EXPERIMENTALIST Lab [facility] Laboratory [address] [place] [address] 05/15/2025 3:00 PM BIOMETRICS EXPERIMENTALIST Office Visit [address] [address] Emma Deshpande MD [address] [place] [address] 911 [place] [address] documented as of this encounter Visit Diagnoses Not on filedocumented in this encounter Care Teams Filler And Trimmer Relationship Specialty Start Date End Date Martina Strickland PA-C PCP - General Physician Electrician'S Helper 07/19/19 Ailin Decker MD Internal Medicine 07/28/11 Amadeo King MD [address] [place] [address] 493 [place], [place] 584645 Ophthalmology 12/22/19 Joseph Trivedi MD [facility] [address] [facility] 215 [place], [place] 551535 Rheumatology 05/21/20 Rene Grant MD [address] [place] [address] 925365 Assigned Surgical Provider 09/12/22 02/28/25 Manju Perkins, JENNIFER Registered Nurse 05/24/24 Martine Rios MD [address] [place] [address] [phone] Assigned Nephrology Provider 07/02/24 Gifty Durham RN [place] [facility], [address] Registered Nurse Transplant 10/27/24 02/27/25 Emma Deshpande MD [address] [place] [address] [phone] Ophthalmology 12/05/24 Emma Deshpande MD [address] [place] [address] [phone] Assigned Surgical Provider 03/01/25 documented as of this encounter
--- OUTSIDE RECORDS SUMMARY | 2025-03-16 17:27 | XMS_ITS | Encounter Summary ---
Author Organization [facility] Address [address] [place] [address] Care Team Providers Care Shuttleless Loom Weaver Name Role Phone Ailin Decker MD Unavailable Martina Strickland PA-C Primary Care Provider Amadeo King MD Unavailable [phone] Joseph Trivedi MD Unavailable [phone] [facility] Unavailable [phone] Manju Perkins RN Unavailable Unavaila Martine Sr MD Unavailable [phone] Gifty Durham RN Unavailable Unavailable Emma Deshpande MD Unavailable [phone] Encounter Details Date Type Department Care Team (Latest Contact Info) Description 02/02/2025 Travel Social History Tobacco Use Types Packs/Day [...] AM CDT 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:59 AM CRUSHER SUPERVISOR Gender Identity Female 2019 10:10 AM CDT Sexual Orientation Straight 2019 10 :10 AM CDT documented as of this encounter Plan of Treatment Upcoming Encounters Date Type Department Care Team (Late st Contact Info) Description 03/19/2025 3:00 PM CRUSHER SUPERVISOR Office Visit [facility] [place] 134596 [address] [place] [address] Amadeo King MD [address] [place] [address] 03/29/2025 7:45 AM CRUSHER SUPERVISOR Lab [facility] Laboratory [address] [place] [address] 05/15/2025 3:00 PM CRUSHER SUPERVISOR Office Visit [facility] [place] 134596 [facility] [address] [address] Emma Deshpande MD [address] [place] [address] 911 [place] [address] documented as of this encounter Visit Diagnoses Not on filedocumented in this encounter Care Teams Shuttleless Loom Weaver Relationship Specialty Start Date End Date Martina Strickland PA-C PCP - General Physician Call Out Clerk 07/19/19 Ailin Decker MD Internal Medicine 07/28/11 Amdaeo King MD 420 [facility] 493 [place], [place] 732005 Ophthalmology 12/22/19 Joseph Trivedi MD [facility] [address] [facility] 215 [place], [place] 5[address] Rheumatology 05/21/20 Rene Grant MD [address] [place] [address] 739245 Assigned Surgical Provider 09/12/22 02/28/25 Manju Perkins, JENNIFER Registered Nurse 05/24/24 Martine Rios MD [address] [place] [address] [phone] Assigned Nephrology Provider 07/02/24 Gifty Durham RN [place] [facility], [address] Registered Nurse Transplant 10/27/24 02/27/25 Emma Deshpande MD [address] [place] [address] 911 [place], [place] 0[address]75 Ophthalmology 12/05/24 documented as of this encounter
--- OUTSIDE RECORDS SUMMARY | 2025-03-16 17:27 | XMS_ITS | Encounter Summary ---
Author Organization [facility] Address [address] [place] [address]900 Care Team Providers Care Customs Compliance Analyst Name Role Phone Ailin Decker MD Unavailable Martina Strickland PA-C Primary Care Provider Amadeo King MD Unavailable [phone] Joseph Trivedi MD Unavailable [phone] Rene Grant MD Unavailable [phone] Manju Perkins RN Unavailable Unavaila Martine Sr MD Unavailable [phone] Gifyt Durham RN Unavailable Unavailable Emma Deshpande MD Unavailable +[phone] Emma Deshpande MD Unavailable + [phone] Encounter Details Date Type Department Care Team (Late st Contact Info) Description 01/30/2025 My[facility] Medical Advice Initial Department 2450 [place] [address] Manju Perkins, RN Social History Tobacco Use [...] AM CDT 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:59 AM GRAPHIC DESIGN INTERN Gender Identity Female 2019 10:10 AM CDT Sexual Orientation Straight 2019 10 :10 AM CDT documented as of this encounter Plan of Treatment Upcoming Encounters Date Type Department Care Team (Late st Contact Info) Description 03/19/2025 3:00 PM GRAPHIC DESIGN INTERN Office Visit [address] [address] Amadeo King MD [address] [place] [address] 03/29/2025 7:45 AM GRAPHIC DESIGN INTERN Lab [facility] [address] [place] [address] 05/15/2025 3:00 PM GRAPHIC DESIGN INTERN Office Visit [address] [address] Emma Deshpande MD [address] [place] [address] 911 [place] [address] documented as of this encounter Visit Diagnoses Not on filedocumented in this encounter Care Teams Customs Compliance Analyst Relationship Specialty Start Date End Date Martina Strickland PA-C PCP - General Physician Elevated Motorman 07/19/19 Ailin Decker MD Internal Medicine 07/28/11 Amadeo King MD [address] [place] [address] 493 [place], [place] 661565 Ophthalmology 12/22/19 Joseph Trivedi MD [facility] [address] [facility] 215 [place], [place] 6[address]25 Rheumatology 05/21/20 Rene Grant MD [address] [place] [address] [phone] Assigned Surgical Provider 09/12/22 02/28/25 Manju Perkins, JENNIFER Registered Nurse 05/24/24 Martine Rios MD [address] [place] [address] 906095 Assigned Nephrology Provider 07/02/24 Gifty Durham RN [facility] [facility], [address] Registered Nurse Transplant 10/27/24 02/27/25 Emma Deshpande MD [address] [place] [address] [phone] Ophthalmology 12/05/24 Emma Deshpande MD [address] [place] [address] [phone] Assigned Surgical Provider 03/01/25 documented as of this encounter
--- OUTSIDE RECORDS SUMMARY | 2025-03-16 17:27 | XMS_ITS | Encounter Summary ---
Author Organization [facility] Address [address] [place] [address]. [place] [address] Care Team Providers Care Director Of Corporate Communications Name Role Phone Ailin Decker MD Unavailable Martina Strickland PA-C Primary Care Provider Amadeo King MD Unavailable [phone] Joseph Trivedi MD Unavailable [phone] Rene Grant MD Unavailable [phone] Manju Perkins RN Unavailable Unavaila Martine Sr MD Unavailable [phone] Gifty Durham RN Unavailable Unavailable Emma Deshpande MD Unavailable [phone] Emma Deshpande MD Unavailable + [phone] Encounter Details Date Type Department Care Team (Late st Contact Info) Description 01/12/2025 Results Follow-Up [facility] 909 [place] [address] Manju Perkins, RN Subj: Message [...] AM CDT 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:59 AM CLERICAL AIDE Gender Identity Female 2019 10:10 AM CDT Sexual Orientation Straight 2019 10 :10 AM CDT documented as of this encounter Plan of Treatment Upcoming Encounters Date Type Department Care Team (Late st Contact Info) Description 03/19/2025 3:00 PM CLERICAL AIDE Office Visit [address] [address] Amadeo King MD 420 [facility] 493 [place] [address] 03/29/2025 7:45 AM CLERICAL AIDE Lab [facility] Laboratory [address] [place] [address] 05/15/2025 3:00 PM CLERICAL AIDE Office Visit [facility] [address] 9[facility] 9A [place] [address] Emma Deshpande MD 6 [facility] 911 [place] [address] documented as of this encounter Visit Diagnoses Not on filedocumented in this encounter Care Teams Director Of Corporate Communications Relationship Specialty Start Date End Date Martina Strickland PA-C PCP - General Physician Supervisor Locomotive 07/19/19 Ailin Decker MD Internal Medicine 07/28/11 Amadeo King MD 420 [facility] 493 [place], [place] 940385 Ophthalmology 12/22/19 Joseph Trivedi MD [facility] [address] [facility] 215 [place], [place] 66[address] Rheumatology 05/21/20 Rene Grant MD [address] [place] [address] [phone] Assigned Surgical Provider 09/12/22 02/28/25 Manju Perkins, JENNIFER Registered Nurse 05/24/24 Martine Rios MD [address] [place] [address] [phone] Assigned Nephrology Provider 07/02/24 Gifty Durham RN [place] [facility], [address] Registered Nurse Transplant 10/27/24 02/27/25 Emma Deshpande MD [address] [place] [address] [phone] Ophthalmology 12/05/24 Emma Deshpande MD [address] [place] [address] [phone] Assigned Surgical Provider 03/01/25 documented as of this encounter
--- OUTSIDE RECORDS SUMMARY | 2025-03-16 17:27 | XMS_ITS | Encounter Summary ---
Author Organization [place] Address [address] [place] [address] Care Team Providers Care Facility Assistant Name Role Phone Ailin Decker MD Unavailable Martina Strickland PA-C Primary Care Provider Amadeo King MD Unavailable [phone] Claudia Marcus MD Unavailable [phone] Amadeo King MD Unavailable + [phone] Joseph Trivedi MD Unavailable [phone] Claudia Marcus MD Unavailable [phone] [...] RN Unavailable Unavaila Martine Sr MD Unavailable Gifty Durham RN Unavailable Unavailable Emma Deshpande MD Unavailable [phone] Emma Deshpande MD Unavailable + [phone] Encounter Details Date Type Department Care Team (Late Contact Info) Description 03/27/2020 MyC Medical Advice [address] [address] Jessica Chisholm, RN Social History Tobacco Use [...] AM CDT 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:59 AM REVERBERATORY FURNACE SUPERVISOR Gender Identity Female 2019 10:10 AM CDT Sexual Orientation Straight 2019 10 :10 AM CDT COVID-19 Exposure Response Date Recorded In the last month, have you been in contact with someone who was confirmed or suspected to have Coronavirus / COVID-19? No / Unsure 03/13/2020 2:59 PM REVERBERATORY FURNACE SUPERVISOR documented as of this encounter Plan of Treatment Upcoming Encounters Date Type Department Care Team (Late st Contact Info) Description 03/19/2025 3:00 PM REVERBERATORY FURNACE SUPERVISOR Office Visit [facility] [place] [address] [facility] 9th Ar Clin 9A [place] [address] Amadeo King MD [address] [place] [address] 03/29/2025 7:45 AM REVERBERATORY FURNACE SUPERVISOR Lab [facility] Laboratory [address] [place] [address] 05/15/2025 3:00 PM REVERBERATORY FURNACE SUPERVISOR Office Visit [facility] 516 [facility] Clin 9A [place] [phone] Emma Deshpande MD 516 [facility] [address] 911 [place] [address] documented as of this encounter Visit Diagnoses Not on filedocumented in this encounter Additional Health Concerns Infection Onset Date Last Indicated Resolved Time Rule Out C-difficile 07/11/2024 07/11/2024 025 11:41 PM REVERBERATORY FURNACE SUPERVISOR documented as of this encounter Care Teams Facility Assistant Relationship Specialty Start Date End Date Martina Strickland PA-C PCP - General Physician Animal Husbandry Professor 07/19/19 Ailin Decker MD Internal Medicine 07/28/11 Amadeo King MD [address] [address] Ophthalmology 12/22/19 Claudia Marcus MD [facility] EYE [facility] [address] [place] [phone] Assigned Surgical Provider 03/01/20 05/25/20 Amadeo King MD 420 [facility] 493 [place] [address] Assigned PCP 04/07/20 06/02/23 Joseph Trivedi MD [facility] [address] [facility] [address] [place] [address] Rheumatology 05/21/20 Claudia Marcus MD [facility] EYE [facility] [address] [place] [phone] Assigned Surgical Provider 06/30/20 10/19/20 Emma Deshpande MD [address] [place] [address] [phone] Assigned Surgical Provider 05/26/20 06/29/20 Kishan Spain, OD [address] [place] [phone] Assigned Surgical Provider 10/20/20 11/23/20 Emma Deshpande MD [address] [place] [address] 278115 Assigned Surgical Provider 11/24/20 12/07/20 Kishan Spain, OD [address] [place] [phone] Assigned Surgical Provider 12/08/20 03/27/22 Emma Deshpande MD [address] [place] [address] 073445 Assigned Surgical Provider 03/28/22 04/03/22 Rene Grant MD [address] [place] [address] 954255 Assigned Surgical Provider 04/04/22 08/21/22 Amadeo Winston MD 420 [place] [address] Assigned Surgical Provider 08/22/22 08/28/22 Amadeo [place] MD 420 [place] [address] Assigned Surgical Provider 09/05/22 09/11/22 Rene Grant MD [address] [place] [address] 704775 Assigned Surgical Provider 08/29/22 09/04/22 Rene Grant MD [address] [place] [address] [phone] Assigned Surgical Provider 09/12/22 02/28/25 Manju Perkins, JENNIFER Registered Nurse 05/24/24 Martine Rios MD [address] [place] [address] 953785 Assigned Nephrology Provider 07/02/24 Gifty Durham RN [facility], [address] Registered Nurse Transplant 10/27/24 02/27/25 Emma Deshpande MD [address] [place] [address] MD Ophthalmology 12/05/24 Emma Deshpande MD [address] [place] [address] Assigned Surgical Provider 03/01/25 documented as of this encounter
--- OUTSIDE RECORDS SUMMARY | 2025-03-16 17:27 | XMS_ITS | Encounter Summary ---
Author Organization [place] Address [address] [place] [address] Care Team Providers Care Silver Miner Blasting Name Role Phone Ailin Decker MD Unavailable Martina Strickland PA-C Primary Care Provider Amadeo King MD Unavailable [phone] Joseph Trivedi MD Unavailable [phone] Rene Grant MD Unavailable [phone] Manju Perkins RN Unavailable Unavaila Martine Sr MD Unavailable [phone] Gifty Durham RN Unavailable Unavailable Emma Deshpande MD Unavailable [phone] Reason for Visit * Reason Onset Date Comments Prior Authorization 02/06/2025 latanoprost (XALATAN) 0.005 % ophthalmic solution Encounter Details Date Type Department Care Team (Late st Contact Info) Description 02/06/2025 Telephone [facility] 516 [facility] 9th Tx Clin 9A [place] [address] Amadeo King MD 420 [facility] 493 [place] [address] Prior Authorization (latanoprost (XALATAN) 0.005 % ophthalmic solution //) Social History Tobacco Use Types Packs/Day Years [...] AM CDT 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:59 AM AGRISCIENCE TECHNOLOGY INSTRUCTOR Gender Identity Female 2019 10:10 AM CDT Sexual Orientation Straight 2019 10 :10 AM CDT documented as of this encounter Miscellaneous Notes * Telephone Encounter - Robles Elizalde - 02/09/2025 11:02 AM CDT Images from the original note were not included. Prior Authorization Approval Medication: LATANOPROST PF 0.005 % OP SOLN Authorization Effective Date: 01/09/2025 Authorization Expiration Date: 02/08/2026 Reference #: [id number] Insurance Company: [employer] Non-Specialty PA's - Which Pharmacy is filling the prescription: [id number] - [place], [place] - [address] [facility] [address] & [facility] Pharmacy Notified: YES Patient Notified: yes * Telephone Encounter - Robles Elizalde - 02/08/2025 2:01 PM CDT Images from the original note were not included. PA Initiation Medication: LATANOPROST PF 0.005 % OP SOLN Insurance Company: [employer] Non-Specialty PA's - Pharmacy Filling the Rx: [id number] [address] [facility] [place] [address] & [facility] Filling Pharmacy Filling Pharmacy Start Date: 02/07/2025 * Telephone Encounter - Robles Elizalde - 02/07/2025 5:06 PM CDT Sent [employer] message to patient to obtain her pharmacy benefits. We have Medical benefits on file but no RX. Thank you Robles Elizalde [facility] Prior Media Production Support Manager * Telephone Encounter - Jose Camara RN - 02/06/2025 11:42 AM CDT Pharmacy confirming Latanoprost eye drop does need prior authorization. I will forward to PA team to assist in initiating. Jose Camara RN 11:42 AM 02/06/25 * Telephone Encounter - Deya Marroquin - 02/06/2025 9:23 AM CDT [facility] Center Phone Message May a detailed message be left on voicemail: yes Reason for Call: Other: Paula calling to confirm if received the prior authorization request for Latanoprost. Please call her at [phone]. Thanks! Action Taken: Message routed to: [facility] Eye Travel Screening: Not Applicable documented in this encounter Plan of Treatment Upcoming Encounters Date Type Department Care Team (Late st Contact Info) Description 03/19/2025 3:00 PM AGRISCIENCE TECHNOLOGY INSTRUCTOR Office Visit [facility] - [address] Clin 9A [place] [address] Amadeo King MD 420 [facility] 493 [place] [address] 03/29/2025 7:45 AM AGRISCIENCE TECHNOLOGY INSTRUCTOR Lab [facility] Laboratory [address] [place] [phone] 05/15/2025 3:00 PM AGRISCIENCE TECHNOLOGY INSTRUCTOR Office [facility] 516 [facility] 9th Tx Clin 9A [place] [address] Emma Deshpande MD 6 [facility] 911 [place], [place] [address] documented as of this encounter Visit Diagnoses Not on filedocumented in this encounter Care Teams Silver Miner Blasting Relationship Specialty Start Date End Date Martina Strickland PA-C PCP - General Physician Buckle And Button Maker 07/19/19 Ailin Decker MD Internal Medicine 07/28/11 Amadeo King MD [address] [place] [address] 493 [place] [address] Ophthalmology 12/22/19 Joseph Trivedi MD [facility] [address] [facility] 215 [place], [place] [address] Rheumatology 05/21/20 Rene Grant MD [address] [place] [address] 520645 Assigned Surgical Provider 09/12/22 02/28/25 Manju Perkins, JENNIFER Registered Nurse 05/24/24 Martine Rios MD [address] [place] [address] 785675 Assigned Nephrology Provider 07/02/24 Gifty Durham RN [facility], [address] Registered Nurse Transplant 10/27/24 02/27/25 Emma Deshpande MD [address] [place] [address] 486015 MD [place] 12/05/24 documented as of this encounter
--- OUTSIDE RECORDS SUMMARY | 2025-03-16 17:28 | XMS_ITS | Encounter Summary ---
Author Organization [place] Address [address] [place] [address] Care Team Providers Care Mechanical Service Technician Name Role Phone Ailin Decker MD Unavailable Martina Strickland PA-C Primary Care Provider Amadeo King MD Unavailable [phone] Joseph Trivedi MD Unavailable [phone] Rene Grant MD Unavailable [phone] Manju Perkins RN Unavailable Unavaila Martine Sr MD Unavailable [phone] Gifty Durham RN Unavailable Unavailable Emma Deshpande MD Unavailable [phone] Emma Deshpande MD Unavailable + [phone] Encounter Details Date Type Department Care Team (Late st Contact Info) Description 10/11/2024 [facility] Transplant Clinic 9 [place] [address] Manju Perkins, RN Social History [...] AM CDT 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:59 AM AUTOMATIC SPOOLER OPERATOR Gender Identity Female 2019 10:10 AM CDT Sexual Orientation Straight 2019 10 :10 AM CDT documented as of this encounter Plan of Treatment Upcoming Encounters Date Type Department Care Team (Late st Contact Info) Description 03/19/2025 3:00 PM AUTOMATIC SPOOLER OPERATOR Office Visit [facility] Eye [facility] - [address] [address] Amadeo King MD [address] [place] [address] 03/29/2025 7:45 AM AUTOMATIC SPOOLER OPERATOR Lab [facility] Laboratory [address] [place] [address] 05/15/2025 3:00 PM AUTOMATIC SPOOLER OPERATOR Office Visit [facility] Eye [facility] - [address] [address] Emma Deshpande MD [address] [place] [address] 911 [place] [address] documented as of this encounter Visit Diagnoses Not on filedocumented in this encounter Care Teams Mechanical Service Technician Relationship Specialty Start Date End Date Martina Strickland PA-C PCP - General Physician Hand Blocker 07/19/19 Ailin Decker MD Internal Medicine 07/28/11 Amadeo King MD [address] [place] [address] 493 [place] [address] Ophthalmology 12/22/19 Joseph Trivedi MD [facility] [address] [facility] 215 [place], [place] [address] Rheumatology 05/21/20 Reen Grant MD [address] [place] [address] 335035 Assigned Surgical Provider 09/12/22 02/28/25 Manju Perkins, JENNIFER Registered Nurse 05/24/24 Martine Rios MD [address] [place] [address] 968885 Assigned Nephrology Provider 07/02/24 Gifty Durham RN [facility], [address] Registered Nurse Transplant 10/27/24 02/27/25 Emma Deshpande MD [address] [place] [address] 147035 Ophthalmology 12/05/24 Emma Deshpande MD [address] [place] [address] 969225 Assigned Surgical Provider 03/01/25 documented as of this encounter
--- OUTSIDE RECORDS SUMMARY | 2025-03-16 17:28 | XMS_ITS | Encounter Summary ---
Author Organization [place] Address [address] [place] [address]. [place] [address] Care Team Providers Care Leather Goods I Assembler Name Role Phone Ailin Decker MD Unavailable Martina Strickland PA-C Primary Care Provider Amadeo King MD Unavailable [phone] Joseph Trivedi MD Unavailable [phone] Rene Grant MD Unavailable [phone] Manju Perkins RN Unavailable Unavaila Martine Sr MD Unavailable [phone] Gifty Durham RN Unavailable Unavailable Emma Deshpande MD Unavailable [phone] Emma Deshpande MD Unavailable + [phone] Encounter Details Date Type Department Care Team (Late st Contact Info) Description 02/09/2025 Results Follow-Up [facility] Transplant Clinic 909 [place] [address] Christelle Omalley, RN Subj: Message about your results Social [...] AM CDT 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:59 AM AIRCRAFT QUALITY CONTROL INSPECTOR Gender Identity Female 2019 10:10 AM CDT Sexual Orientation Straight 2019 10 :10 AM CDT documented as of this encounter Plan of Treatment Upcoming Encounters Date Type Department Care Team (Late st Contact Info) Description 03/19/2025 3:00 PM AIRCRAFT QUALITY CONTROL INSPECTOR Office Visit [facility] - [address] [address] Amadeo King MD [address] [place] [address] 03/29/2025 7:45 AM AIRCRAFT QUALITY CONTROL INSPECTOR Lab [facility] Laboratory [address] [place] [address] 05/15/2025 3:00 PM AIRCRAFT QUALITY CONTROL INSPECTOR Office [facility] [address] 9[facility] 9A [place] [address] Emma Deshpande MD [address] [place] [address] 911 [place] [address] documented as of this encounter Visit Diagnoses Not on filedocumented in this encounter Care Teams Leather Goods I Assembler Relationship Specialty Start Date End Date Martina Strickland PA-C PCP - General Physician Wood Veneer Taper 07/19/19 Ailin Decker MD Internal Medicine 07/28/11 Amadeo King MD 420 [facility] 493 [place], [place] [address] Ophthalmology 12/22/19 Joseph Trivedi MD [facility] [address] [place] 215 [place], [place] 9[address] Rheumatology 05/21/20 Rene Grant MD [address] [place] [address] 047795 Assigned Surgical Provider 09/12/22 02/28/25 Manju Perkins, JENNIFER Registered Nurse 05/24/24 Martine Rios MD [address] [place] [address] [phone] Assigned Nephrology Provider 07/02/24 Gifty Durham RN [facility], [address] Registered Nurse Transplant 10/27/24 02/27/25 Emma Deshpande MD [address] [place] [address] Ophthalmology 12/05/24 Emma Desphande MD [address] [place] [address] 070685 Assigned Surgical Provider 03/01/25 documented as of this encounter
--- OUTSIDE RECORDS SUMMARY | 2025-03-16 17:28 | XMS_ITS | Encounter Summary ---
Author Organization [place] Address [address] [place] [address] Care Team Providers Care Truckload Owner Operator Name Role Phone Ailin Decker MD Unavailable Martina Strickland PA-C Primary Care Provider Amadeo King MD Unavailable [phone] Joseph Trivedi MD Unavailable [phone] Rene Grant MD Unavailable [phone] Manju Perkins RN Unavailable Unavaila Martine Sr MD Unavailable [phone] Emma Deshpande MD Unavailable Emma Deshpande MD Unavailable + [phone] Encounter Details Date Type Department Care Team (Late st Contact Info) Description 02/28/2025 MyC Medical Advice Initial Department [address] [place] [address] Manju Perkins, RN Social History Tobacco Use [...] AM CDT 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:59 AM TRAFFIC ADMINISTRATOR Gender Identity Female 2019 10:10 AM CDT Sexual Orientation Straight 2019 10 :10 AM CDT documented as of this encounter Plan of Treatment Upcoming Encounters Date Type Department Care Team (Late st Contact Info) Description 03/19/2025 3:00 PM TRAFFIC ADMINISTRATOR Office Visit [facility] - [address] [address] Amadeo King MD [address] [place] [address] 03/29/2025 7:45 AM TRAFFIC ADMINISTRATOR Lab [facility] Laboratory [address] [place] [address] 05/15/2025 3:00 PM TRAFFIC ADMINISTRATOR Office Visit [facility] Eye [facility] - [address] [address] Emma Deshpande MD [address] [place] [address] 911 [place] [address] documented as of this encounter Visit Diagnoses Not on filedocumented in this encounter Care Teams Truckload Owner Operator Relationship Specialty Start Date End Date Martina Strickland PA-C PCP - General Physician Platform Supervisor 07/19/19 Ailin Decker MD Internal Medicine 07/28/11 Amadeo King MD [address] [place] [address] 493 [place], [place] 141255 Ophthalmology 12/22/19 Joseph Trivedi MD [facility] [address] [facility] 215 [place], [place] 520665 Rheumatology 05/21/20 Rene Grant MD [address] [place] [address] 996865 Assigned Surgical Provider 09/12/22 02/28/25 Manju Perkins, JENNIFER Registered Nurse 05/24/24 Martine Rios MD [address] [place] [address] 688655 Assigned Nephrology Provider 07/02/24 Emma Deshpande MD [address] [place] [address] 363435 Ophthalmology 12/05/24 Emma Deshpande MD [address] [place] [address] 737365 Assigned Surgical Provider 03/01/25 documented as of this encounter
--- OUTSIDE RECORDS SUMMARY | 2025-03-16 17:28 | XMS_ITS | Encounter Summary ---
Author Organization [place] Address [address] [place] [address] Care Team Providers Care Price Accuracy Supervisor Name Role Phone Ailin Decker MD Unavailable Martina Strickland PA-C Primary Care Provider Amadeo King MD Unavailable [phone] Joseph Trivedi MD Unavailable [phone] [facility] Unavailable [phone] Manju Perkins RN Unavailable Unavaila Martine Sr MD Unavailable [phone] Gifty Durham RN Unavailable Unavailable Emma Deshpande MD Unavailable [phone] Encounter Details Date Type Department Care Team (Latest Contact Info) Description 02/13/2025 Travel Social History Tobacco Use Types Packs/Day [...] AM CDT 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:59 AM EMT B Gender Identity Female 2019 10:10 AM CDT Sexual Orientation Straight 2019 10 :10 AM CDT documented as of this encounter Plan of Treatment Upcoming Encounters Date Type Department Care Team (Late st Contact Info) Description 03/19/2025 3:00 PM EMT B Office Visit [facility] Eye [facility] [place] 0[address]106 [address] 9[address] [place] [address] Amadeo King MD [address] [place] [address] 03/29/2025 7:45 AM EMT B Lab [facility] [address] [place] [address] 05/15/2025 3:00 PM EMT B Office Visit [facility] Eye [facility] [place] 036106 [facility] Emergency Department [address] [address] Emma Deshpande MD [address] [place] [address] 911 [place] [address] documented as of this encounter Visit Diagnoses Not on filedocumented in this encounter Care Teams Price Accuracy Supervisor Relationship Specialty Start Date End Date Martina Strickland PA-C PCP - General Physician Universal Banker 07/19/19 Ailin Decker MD Internal Medicine 07/28/11 Amadeo King MD 420 [facility] 493 [place], [place] 652615 Ophthalmology 12/22/19 Joseph Trivedi MD [facility] [address] [facility] [facility] 215 [place], [place] 961265 Rheumatology 05/21/20 Rene Grant MD [address] [place] [address] 972325 Assigned Surgical Provider 09/12/22 02/28/25 Manju Perkins, JENNIFER Registered Nurse 05/24/24 Martine Rios MD [address] [place] [address] [phone] Assigned Nephrology Provider 07/02/24 Gifty Durham RN [facility], [address] Registered Nurse Transplant 10/27/24 02/27/25 Emma Deshpande MD [address] [place] [address] 911 [place], [place] 379145 Ophthalmology 12/05/24 documented as of this encounter
--- OUTSIDE RECORDS SUMMARY | 2025-03-16 17:28 | XMS_ITS | Encounter Summary ---
Author Organization [place] Address [address] [place] [address] Care Team Providers Care Oral Health Therapist Name Role Phone Ailin Decker MD Unavailable Martina Strickland PA-C Primary Care Provider Amadeo King MD Unavailable [phone] Joseph Trivedi MD Unavailable [phone] Rene Grant MD Unavailable [phone] Manju Perkins RN Unavailable Unavaila Martine Sr MD Unavailable [phone] Gifty Durham RN Unavailable Unavailable Emma Deshpande MD Unavailable [phone] Encounter Details Date Type Department Care Team (Late st Contact Info) Description 12/22/2024 Results Follow-Up [facility] Transplant Clinic 9 [place] [address] Manju Perkins, RN Subj: Message [...] AM CDT 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:59 AM RANCH MANAGER Gender Identity Female 2019 10:10 AM CDT Sexual Orientation Straight 2019 10 :10 AM CDT documented as of this encounter Plan of Treatment Upcoming Encounters Date Type Department Care Team (Late st Contact Info) Description 03/19/2025 3:00 PM RANCH MANAGER Office Visit [place] 788956 [facility] 9[facility] 9A [place] [address] Amadeo King MD [address] [place] [address] 03/29/2025 7:45 AM RANCH MANAGER Lab [facility] Laboratory [address] [place] [address] 05/15/2025 3:00 PM RANCH MANAGER Office Visit [facility] [place] 763006 [facility] 9[facility] 9A [place] [address] Emma Deshpande MD 6 [facility] 911 [place] [address] documented as of this encounter Visit Diagnoses Not on filedocumented in this encounter Care Teams Oral Health Therapist Relationship Specialty Start Date End Date Martina Strickland PA-C PCP - General Physician Glass Enamel Mixer 07/19/19 Ailin Decker MD Internal Medicine 07/28/11 Amadeo King MD 420 [facility] 493 [place], [place] 8[address] Ophthalmology 12/22/19 Joseph Trivedi MD [facility] [address] [facility] 215 [place], [place] 0[address] Rheumatology 05/21/20 Rene Grant MD [address] [place] [address] [phone] Assigned Surgical Provider 09/12/22 02/28/25 Manju Perkins, JENNIFER Registered Nurse 05/24/24 Martine Rios MD [address] [place] [address] 330345 Assigned Nephrology Provider 07/02/24 Gifyt Durham RN [address] [facility], [address] Registered Nurse Transplant 10/27/24 02/27/25 Emma Deshpande MD [address] [place] [address] 911 [place] [address] Ophthalmology 12/05/24 documented as of this encounter
--- OUTSIDE RECORDS SUMMARY | 2025-03-16 17:28 | XMS_ITS | Encounter Summary ---
Author Organization [place] Address [address] [place] [address] Care Team Providers Care Tenant Relations Coordinator Name Role Phone Ailin Decker MD Unavailable Martina Strickland PA-C Primary Care Provider Amadeo King MD Unavailable [phone] Joseph Trivedi MD Unavailable [phone] [facility] Unavailable [phone] Manju Perkins RN Unavailable Unavaila Martine Sr MD Unavailable +[phone] Gifty Durham RN Unavailable Unavailable Emma Deshpande MD Unavailable [phone] Encounter Details Date Type Department Care Team (Latest Contact Info) Description 02/27/2025 Travel Social History Tobacco Use Types Packs/Day [...] AM CDT 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:59 AM SHORT RANGE AIR DEFENSE ARTILLERY Gender Identity Female 2019 10:10 AM CDT Sexual Orientation Straight 2019 10 :10 AM CDT documented as of this encounter Plan of Treatment Upcoming Encounters Date Type Department Care Team (Late st Contact Info) Description 03/19/2025 3:00 PM SHORT RANGE AIR DEFENSE ARTILLERY Office Visit [facility] [place] [id number] [address] [place] [address] Amadeo King MD [address] [place] [address] 03/29/2025 7:45 AM SHORT RANGE AIR DEFENSE ARTILLERY Lab [facility] [address] [place] [address] 05/15/2025 3:00 PM SHORT RANGE AIR DEFENSE ARTILLERY Office Visit [facility] Eye [facility] [place] [id number] [facility] [address] [address] Emma Deshpande MD [address] [place] [address] 911 [place] [address] documented as of this encounter Visit Diagnoses Not on filedocumented in this encounter Care Teams Tenant Relations Coordinator Relationship Specialty Start Date End Date Martina Strickland PA-C PCP - General Physician Collect On Delivery Clerk 07/19/19 Ailin Decker MD Internal Medicine 07/28/11 Amadeo King MD [address] [facility] 493 [place], [place] 591905 Ophthalmology 12/22/19 Joseph Trivedi MD [facility] [address] [facility] 215 [place], [place] 604155 Rheumatology 05/21/20 Rene Grant MD [address] [place] [address] [phone] Assigned Surgical Provider 09/12/22 02/28/25 Manju Perkins, JENNIFER Registered Nurse 05/24/24 Martine Rios MD [address] [place] [address] [phone] Assigned Nephrology Provider 07/02/24 Gifty Durham RN [facility], [address] Registered Nurse Transplant 10/27/24 02/27/25 Emma Deshpande MD [address] [place] [address] 911 [place], [place] 345315 Ophthalmology 12/05/24 documented as of this encounter
--- OUTSIDE RECORDS SUMMARY | 2025-03-16 17:28 | XMS_ITS | Encounter Summary ---
Author Organization [place] Address [address] [place] [address] Care Team Providers Care Duct Layer Supervisor Name Role Phone Ailin Decker MD Unavailable Martina Strickland PA-C Primary Care Provider Amadeo King MD Unavailable [phone] Joseph Trivedi MD Unavailable [phone] Rene Grant MD Unavailable [phone] Manju Perkins RN Unavailable Unavaila Martine Sr MD Unavailable [phone] Gifty Durham RN Unavailable Unavailable Emma Deshpande MD Unavailable +[phone] Emma Deshpande MD Unavailable + [phone] Encounter Details Date Type Department Care Team (Late st Contact Info) Description 08/18/2024 [facility] Medical Advice [facility] 9 [place] [address] Manju Perkins, RN Social History [...] AM CDT 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:59 AM DEVELOPMENT TECHNICIAN Gender Identity Female 2019 10:10 AM CDT Sexual Orientation Straight 2019 10 :10 AM CDT documented as of this encounter Plan of Treatment Upcoming Encounters Date Type Department Care Team (Late st Contact Info) Description 03/19/2025 3:00 PM DEVELOPMENT TECHNICIAN Office Visit [facility] [address] [address] Amadeo King MD [address] [place] [address] 03/29/2025 7:45 AM DEVELOPMENT TECHNICIAN Lab [facility] [address] [place] [address] 05/15/2025 3:00 PM DEVELOPMENT TECHNICIAN Office Visit [facility] - [address] [address] Emma Deshpande MD [address] [place] [address] 911 [place] [address] documented as of this encounter Visit Diagnoses Not on filedocumented in this encounter Care Teams Duct Layer Supervisor Relationship Specialty Start Date End Date Martina Strickland PA-C PCP - General Physician Sheet Rock Applier 07/19/19 Ailin Decker MD Internal Medicine 07/28/11 Amadeo King MD [address] [place] [address] 493 [place] [address] Ophthalmology 12/22/19 Joseph Trivedi MD [facility] [address] [facility] 215 [place], [place] 429385 Rheumatology 05/21/20 Rene Grant MD [address] [place] [address] 279885 Assigned Surgical Provider 09/12/22 02/28/25 Manju Perkins, JENNIFER Registered Nurse 05/24/24 Martine Rios MD [address] [place] [address] 735135 Assigned Nephrology Provider 07/02/24 Gifty Durham RN [facility], [address] Registered Nurse Transplant 10/27/24 02/27/25 Emma Deshpande MD [address] [place] [address] 366085 Ophthalmology 12/05/24 Emma Deshpande MD [address] [place] [address] [phone] Assigned Surgical Provider 03/01/25 documented as of this encounter
--- OUTSIDE RECORDS SUMMARY | 2025-03-16 17:28 | XMS_ITS | Encounter Summary ---
Author Organization [place] Address [address] [place] [address] Care Team Providers Care Medical File Clerk Name Role Phone Ailin Decker MD Unavailable Martina Strickland PA-C Primary Care Provider Amadeo King MD Unavailable [phone] Joseph Trivedi MD Unavailable [phone] Rene Grant MD Unavailable [phone] Manju Perkins RN Unavailable Unavaila Martine Sr MD Unavailable [phone] Gifty Durham RN Unavailable Unavailable Emma Deshpande MD Unavailable [phone] Emma Deshpande MD Unavailable + [phone] Encounter Details Date Type Department Care Team (Late st Contact Info) Description 09/28/2024 [facility] Medical Advice [facility] 9 [place] [address] Manju Perkins, RN Social History [...] AM CDT 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:59 AM WATCH INSPECTOR FINAL MOVEMENT Gender Identity Female 2019 10:10 AM CDT Sexual Orientation Straight 2019 10 :10 AM CDT documented as of this encounter Plan of Treatment Upcoming Encounters Date Type Department Care Team (Late st Contact Info) Description 03/19/2025 3:00 PM WATCH INSPECTOR FINAL MOVEMENT Office Visit [facility] - [address] [address] Amadeo King MD [address] [place] [address] 03/29/2025 7:45 AM WATCH INSPECTOR FINAL MOVEMENT Lab [facility] [address] [place] [address] 05/15/2025 3:00 PM WATCH INSPECTOR FINAL MOVEMENT Office Visit [facility] - [address] [address] Emma Deshpande MD [address] [place] [address] 911 [place] [address] documented as of this encounter Visit Diagnoses Not on filedocumented in this encounter Care Teams Medical File Clerk Relationship Specialty Start Date End Date Martina Strickland PA-C PCP - General Physician Offset Press Operator Helper 07/19/19 Ailin Decker MD Internal Medicine 07/28/11 Amadeo King MD [address] [place] [address] 493 [place] [address] Ophthalmology 12/22/19 Joseph Trivedi MD [facility] [address] [facility] 215 [place], [place] 163365 Rheumatology 05/21/20 Rene Grant MD [address] [place] [address] [phone] Assigned Surgical Provider 09/12/22 02/28/25 Manju Perkins, JENNIFER Registered Nurse 05/24/24 Martine Rios MD [address] [place] [address] 394545 Assigned Nephrology Provider 07/02/24 Gifty Durham RN [facility], [address] Registered Nurse Transplant 10/27/24 02/27/25 Emma Deshpande MD [address] [place] [address] 129695 Ophthalmology 12/05/24 Emma Deshpande MD [address] [place] [address] 317145 Assigned Surgical Provider 03/01/25 documented as of this encounter
--- OUTSIDE RECORDS SUMMARY | 2025-03-16 17:28 | XMS_ITS | Encounter Summary ---
Author Organization [place] Address [address] [place] [address] Care Team Providers Care It Help Desk Associate Name Role Phone Ailin Decker MD Unavailable Martina Strickland PA-C Primary Care Provider Amadeo King MD Unavailable [phone] Joseph Trivedi MD Unavailable [phone] Rene Grant MD Unavailable [phone] Manju Perkins RN Unavailable Unavaila Martine Sr MD Unavailable +[phone] Gifty Durham RN Unavailable Unavailable Emma Deshpande MD Unavailable +[phone] Emma Deshpande MD Unavailable + [phone] Encounter Details Date Type Department Care Team (Late st Contact Info) Description 11/08/2024 [facility] Medical Advice Initial Department 2450 [place] [address] Manju Perkins, RN Social History Tobacco Use [...] AM CDT 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:59 AM POTATO PEELER Gender Identity Female 2019 10:10 AM CDT Sexual Orientation Straight 2019 10 :10 AM CDT documented as of this encounter Plan of Treatment Upcoming Encounters Date Type Department Care Team (Late st Contact Info) Description 03/19/2025 3:00 PM POTATO PEELER Office Visit [address] [address] Amadeo King MD [address] [place] [address] 03/29/2025 7:45 AM POTATO PEELER Lab [facility] [address] [place] [address] 05/15/2025 3:00 PM POTATO PEELER Office Visit [address] [address] Emma Deshpande MD [address] [place] [address] 911 [place] [address] documented as of this encounter Visit Diagnoses Not on filedocumented in this encounter Care Teams It Help Desk Associate Relationship Specialty Start Date End Date Martina Strickland PA-C PCP - General Physician Accountant 07/19/19 Ailin Decker MD Internal Medicine 07/28/11 Amadeo King MD [address] [place] [address] 493 [place], [place] 982175 Ophthalmology 12/22/19 Joseph Trivedi MD [facility] [address] [facility] 215 [place], [place] 686[address] Rheumatology 05/21/20 Rene Grant MD [address] [place] [address] 515015 Assigned Surgical Provider 09/12/22 02/28/25 Manju Perkins, JENNIFER Registered Nurse 05/24/24 Martine Rios MD [address] [place] [place] [address] 625765 Assigned Nephrology Provider 07/02/24 Gifty Durham RN [facility], [address] Registered Nurse Transplant 10/27/24 02/27/25 Emma Deshpande MD [address] [place] [address] [phone] Ophthalmology 12/05/24 Emma Deshpande MD [address] [place] [address] [phone] Assigned Surgical Provider 03/01/25 documented as of this encounter
--- OUTSIDE RECORDS SUMMARY | 2025-03-16 17:28 | XMS_ITS | Encounter Summary ---
Author Organization [place] Address [address] [place] [address] Care Team Providers Care Commercial Print Salesman Name Role Phone Ailin Decker MD Unavailable Martina Strickland PA-C Primary Care Provider Amadeo King MD Unavailable [phone] Joseph Trivedi MD Unavailable [phone] Rene Grant MD Unavailable [phone] Manju Perkins RN Unavailable Unavaila Martine Sr MD Unavailable [phone] Gifty Durham RN Unavailable Unavailable Emma Deshpande MD Unavailable [phone] Emma Deshpande MD Unavailable + [phone] Encounter Details Date Type Department Care Team (Late st Contact Info) Description 10/18/2024 [facility] Medical Advice [facility] 9 [place] [address] Manju Perkins, RN Social History [...] AM CDT 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:59 AM AUTOMOTIVE MANUFACTURER Gender Identity Female 2019 10:10 AM CDT Sexual Orientation Straight 2019 10 :10 AM CDT documented as of this encounter Plan of Treatment Upcoming Encounters Date Type Department Care Team (Late st Contact Info) Description 03/19/2025 3:00 PM AUTOMOTIVE MANUFACTURER Office Visit [facility] - [address] [address] Amadeo King MD [address] [place] [address] 03/29/2025 7:45 AM AUTOMOTIVE MANUFACTURER Lab [facility] Laboratory [address] [place] [address] 05/15/2025 3:00 PM AUTOMOTIVE MANUFACTURER Office Visit [facility] - [address] [address] Emma Deshpande MD [address] [place] [address] 911 [place] [address] documented as of this encounter Visit Diagnoses Not on filedocumented in this encounter Care Teams Commercial Print Salesman Relationship Specialty Start Date End Date Martina Strickland PA-C PCP - General Physician Signal Operator Technical 07/19/19 Ailin Decker MD Internal Medicine 07/28/11 Amadeo King MD [address] [place] [address] 493 [place] [address] Ophthalmology 12/22/19 Joseph Trivedi MD [facility] [address] [facility] 215 [place], [place] 9685[address] Rheumatology 05/21/20 Rene Grant MD [address] [place] [address] 409505 Assigned Surgical Provider 09/12/22 02/28/25 Manju Perkins, JENNIFER Registered Nurse 05/24/24 Martine Rios MD [address] [place] [address] 624575 Assigned Nephrology Provider 07/02/24 Gifty Durham RN [facility], [address] Registered Nurse Transplant 10/27/24 02/27/25 Emma Deshpande MD [address] [place] [address] 156985 Ophthalmology 12/05/24 Emma Deshpande MD [address] [place] [address] 075425 Assigned Surgical Provider 03/01/25 documented as of this encounter
--- OUTSIDE RECORDS SUMMARY | 2025-03-16 17:28 | XMS_ITS | Encounter Summary ---
Author Organization [facility] Address [address] [place] [address]45 Care Team Providers Care Administrative Supervisor Name Role Phone Ailin Decker MD Unavailable Martina Strickland PA-C Primary Care Provider Amadeo King MD Unavailable [phone] Joseph Trivedi MD Unavailable [phone] Rene Grant MD Unavailable [phone] Manju Perkins RN Unavailable Unavaila Martine Sr MD Unavailable [phone] Gifty Durham RN Unavailable Unavailable Emma Deshpande MD Unavailable [phone] Emma Deshpande MD Unavailable + [phone] Encounter Details Date Type Department Care Team (Late st Contact Info) Description 11/17/2024 [facility] [place] [facility] 9 [place] [address] Manju Perkins, RN Social History [...] AM CDT 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:59 AM RUGBY LEAGUE FOOTBALLER Gender Identity Female 2019 10:10 AM CDT Sexual Orientation Straight 2019 10 :10 AM CDT documented as of this encounter Plan of Treatment Upcoming Encounters Date Type Department Care Team (Late st Contact Info) Description 03/19/2025 3:00 PM RUGBY LEAGUE FOOTBALLER Office Visit [facility] - [address] [address] Amadeo King MD [address] [place] [address] 03/29/2025 7:45 AM RUGBY LEAGUE FOOTBALLER Lab [facility] Laboratory [address] [place] [address] 05/15/2025 3:00 PM RUGBY LEAGUE FOOTBALLER Office Visit [facility] - [address] [address] Emma Deshpande MD [address] [place] [address] 911 [place] [address] documented as of this encounter Visit Diagnoses Not on filedocumented in this encounter Care Teams Administrative Supervisor Relationship Specialty Start Date End Date Martina Strickland PA-C PCP - General Physician Marble Installer Supervisor 07/19/19 Ailin Decker MD Internal Medicine 07/28/11 Amadeo King MD [address] [place] [address] 493 [place] [address] Ophthalmology 12/22/19 Joseph Trivedi MD [facility] [address] [facility] 215 [place], [place] 235[address] Rheumatology 05/21/20 Rene Grant MD [address] [place] [address] 696365 Assigned Surgical Provider 09/12/22 02/28/25 Manju Perkins, JENNIFER Registered Nurse 05/24/24 Martine Rios MD [address] [place] [address] 037215 Assigned Nephrology Provider 07/02/24 Gifty Durham RN [place] [facility], [address] Registered Nurse Transplant 10/27/24 02/27/25 Emma Deshpande MD [address] [place] [address] [phone] Ophthalmology 12/05/24 Emma Deshpande MD [address] [place] [address] 171635 Assigned Surgical Provider 03/01/25 documented as of this encounter
--- OUTSIDE RECORDS SUMMARY | 2025-03-16 17:28 | XMS_ITS | Encounter Summary ---
Author Organization [facility] Address [address] [place] [address] 25268 Care Team Providers Care Carry All Driver Name Role Phone Ailin Decker MD Unavailable Martina Strickland PA-C Primary Care Provider Amadeo King MD Unavailable [phone] Joseph Trivedi MD Unavailable [phone] Rene Grant MD Unavailable [phone] Manju Perkins RN Unavailable Unavaila Martine Sr MD Unavailable [phone] Gifty Durham RN Unavailable Unavailable Emma Deshpande MD Unavailable Emma Deshpande MD Unavailable [phone] Reason for Visit * Reason Onset Date Comments Symptoms 11/26/2024 Encounter Details Date Type Department Care Team (Late st Contact Info) Description 11/26/2024 [facility] Medical Advice [facility] Emergency Department [address] [facility] 9A [place] [address] Amadeo King MD [address] [facility] 493 [place] [address] Symptoms Social History Tobacco Use Types Packs/Day Years [...] AM CDT 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:59 AM LICENSED MASTER SOCIAL WORKER Gender Identity Female 2019 10:10 AM CDT Sexual Orientation Straight 2019 10 :10 AM CDT documented as of this encounter Plan of Treatment Upcoming Encounters Date Type Department Care Team (Late st Contact Info) Description 03/19/2025 3:00 PM LICENSED MASTER SOCIAL WORKER Office Visit [facility] - [address] 9[facility] 9A [place] [address] Amadeo King MD [address] [place] [address] 493 [place] [address] 03/29/2025 7:45 AM LICENSED MASTER SOCIAL WORKER Lab [facility] [address] [place] [address] 05/15/2025 3:00 PM LICENSED MASTER SOCIAL WORKER Office Visit [facility] - [address] [place] [address] Emma Deshpande MD 6 [facility] 911 [place] [address] documented as of this encounter Visit Diagnoses Not on filedocumented in this encounter Care Teams Carry All Driver Relationship Specialty Start Date End Date Martina Strickland PA-C PCP - General Physician Human Resources Support Specialist 07/19/19 Ailin Decker MD Internal Medicine 07/28/11 Amadeo King MD [address] [place] [address] [phone] Ophthalmology 12/22/19 Joseph Trivedi MD [facility] [address] [facility] 215 [place], [place] 501945 Rheumatology 05/21/20 Rene Grant MD [address] [place] [address] [phone] Assigned Surgical Provider 09/12/22 02/28/25 Manju Perkins, JENNIFER Registered Nurse 05/24/24 Martine Rios MD [address] [place] [address] [phone] Assigned Nephrology Provider 07/02/24 Gifty Durham RN [facility], [address] Registered Nurse Transplant 10/27/24 02/27/25 Emma Deshpande MD [address] [place] [address] Ophthalmology 12/05/24 Emma Deshpande MD [address] [place] [address] [phone] Assigned Surgical Provider 03/01/25 documented as of this encounter
--- OUTSIDE RECORDS SUMMARY | 2025-03-16 17:28 | XMS_ITS | Encounter Summary ---
Author Organization [place] Address [address] [place] [address] Care Team Providers Care Collator Hand Name Role Phone Ailin Decker MD Unavailable Martina Strickland PA-C Primary Care Provider Amadeo King MD Unavailable [phone] Joseph Trivedi MD Unavailable [phone] Rene Grant MD Unavailable [phone] Manju Perkins RN Unavailable Unavaila Martine Sr MD Unavailable [phone] Gifty Durham RN Unavailable Unavailable Emma Deshpande MD Unavailable [phone] Emma Desphande MD Unavailable + [phone] Encounter Details Date Type Department Care Team (Late st Contact Info) Description 12/14/2024 [facility] Medical Advice Initial Department 2450 [place] [address] Manju Perkins, RN Social History Tobacco Use [...] AM CDT 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:59 AM BATTERY PLATE REMOVER Gender Identity Female 2019 10:10 AM CDT Sexual Orientation Straight 2019 10 :10 AM CDT documented as of this encounter Plan of Treatment Upcoming Encounters Date Type Department Care Team (Late st Contact Info) Description 03/19/2025 3:00 PM BATTERY PLATE REMOVER Office Visit [address] [address] Amadeo King MD [address] [place] [address] 03/29/2025 7:45 AM BATTERY PLATE REMOVER Lab [facility] Laboratory [address] [place] [address] 05/15/2025 3:00 PM BATTERY PLATE REMOVER Office Visit [address] [address] Emma Deshpande MD [address] [place] [address] 911 [place] [address] documented as of this encounter Visit Diagnoses Not on filedocumented in this encounter Care Teams Collator Hand Relationship Specialty Start Date End Date Martina Strickland PA-C PCP - General Physician Draftsperson 07/19/19 Ailin Decker MD Internal Medicine 07/28/11 Amadeo King MD [address] [place] [address] 493 [place], [place] 074205 Ophthalmology 12/22/19 Joseph Trivedi MD [facility] [address] [facility] 215 [place], [place] 126505 Rheumatology 05/21/20 Rene Grant MD [address] [place] [address] [phone] Assigned Surgical Provider 09/12/22 02/28/25 Manju Perkins, JENNIFER Registered Nurse 05/24/24 Martine Rios MD [address] [place] [address] 562145 Assigned Nephrology Provider 07/02/24 Gifty Durham RN [facility], [address] Registered Nurse Transplant 10/27/24 02/27/25 Emma Deshpande MD [address] [place] [address] [phone] Ophthalmology 12/05/24 Emma Deshpande MD [address] [place] [address] [phone] Assigned Surgical Provider 03/01/25 documented as of this encounter
--- OUTSIDE RECORDS SUMMARY | 2025-03-16 17:28 | XMS_ITS | Encounter Summary ---
Author Organization [facility] Address [address] [place] [address] Care Team Providers Care Intake Specialist Name Role Phone Ailin Decker MD Unavailable Martina Strickland PA-C Primary Care Provider Amadeo King MD Unavailable [phone] Joseph Trivedi MD Unavailable [phone] Rene Grant MD Unavailable [phone] Manju Perkins RN Unavailable Unavaila Martine Sr MD Unavailable +[phone] Gifty Durham RN Unavailable Unavailable Emma Deshpande MD Unavailable +[phone] Emma Deshpande MD Unavailable + [phone] Encounter Details Date Type Department Care Team (Late st Contact Info) Description 08/09/2024 [facility] Medical Advice [facility] 9 [place] [address] Manju Perkins, RN Social History [...] AM CDT 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:59 AM PEST CONTROL OPERATOR Gender Identity Female 2019 10:10 AM CDT Sexual Orientation Straight 2019 10 :10 AM CDT documented as of this encounter Plan of Treatment Upcoming Encounters Date Type Department Care Team (Late st Contact Info) Description 03/19/2025 3:00 PM PEST CONTROL OPERATOR Office Visit [facility] - [address] [address] Amadeo King MD [address] [place] [address] 03/29/2025 7:45 AM PEST CONTROL OPERATOR Lab [facility] Laboratory [address] [place] [phone] 05/15/2025 3:00 PM PEST CONTROL OPERATOR Office Visit [facility] - [address] [address] Emma Deshpande MD [address] [place] [address] 911 [place] [address] documented as of this encounter Visit Diagnoses Not on filedocumented in this encounter Care Teams Intake Specialist Relationship Specialty Start Date End Date Martina Strickland PA-C PCP - General Physician Personnel Training Officer 07/19/19 Ailin Decker MD Internal Medicine 07/28/11 Amadeo King MD [address] [place] [address] 493 [place] [address] Ophthalmology 12/22/19 Joseph Trivedi MD [facility] [address] [facility] 215 [place], [place] [address] Rheumatology 05/21/20 Rene Grant MD [address] [place] [address] 801605 Assigned Surgical Provider 09/12/22 02/28/25 Manju Perkins, JENNIFER Registered Nurse 05/24/24 Martine Rios MD [address] [place] [address] [phone] Assigned Nephrology Provider 07/02/24 Gifty Durham RN [facility], [address] Registered Nurse Transplant 10/27/24 02/27/25 Emma Deshpande MD [address] [place] [address] [phone] Ophthalmology 12/05/24 Emma Deshpande MD [address] [place] [address] [phone] Assigned Surgical Provider 03/01/25 documented as of this encounter
--- OUTSIDE RECORDS SUMMARY | 2025-03-16 17:28 | XMS_ITS | Encounter Summary ---
Author Organization [facility] Address [address] [place] [address] Care Team Providers Care Emergency Department Coordinator Name Role Phone Ailin Decker MD Unavailable Martina Strickland PA-C Primary Care Provider Amadeo King MD Unavailable [phone] Joseph Trivedi MD Unavailable [phone] Rene Grant MD Unavailable [phone] Manju Perkins RN Unavailable Unavaila Martine rS MD Unavailable [phone] Gifty Durham RN Unavailable Unavailable Emma Deshpande MD Unavailable +[phone] Encounter Details Date Type Department Care Team (Late st Contact Info) Description 02/09/2025 [facility] 9 [place] [address] Manju Perkins, RN Immunosuppression; Pseudophakia of right eye; Need for pneumocystis prophylaxis; Immunosuppressed status; Fungal infection Social History Tobacco [...] AM CDT 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:59 AM PRODUCT DESIGN SPECIALIST Gender Identity Female 2019 10:10 AM CDT Sexual Orientation Straight 2019 10 :10 AM CDT documented as of this encounter Plan of Treatment Upcoming Encounters Date Type Department Care Team (Late st Contact Info) Description 03/19/2025 3:00 PM PRODUCT DESIGN SPECIALIST Office Visit [facility] - [address] [address] Amadeo King MD [address] [place] [address] 03/29/2025 7:45 AM PRODUCT DESIGN SPECIALIST Lab [facility] Laboratory [address] [place] [address] 05/15/2025 3:00 PM PRODUCT DESIGN SPECIALIST Office Visit [address] [address] Emma Deshpande MD [address] [place] [address] 911 [place] [address] documented as of this encounter Visit Diagnoses Diagnosis Immunosuppression Unspecified disorder of immune mechanism Pseudophakia of right eye Lens replaced by other means Need for pneumocystis prophylaxis Need for other prophylactic chemotherapy Immunosuppressed status Unspecified disorder of immune mechanism Fungal infection Other and unspecified mycoses documented in this encounter Care Teams Emergency Department Coordinator Relationship Specialty Start Date End Date Martina Strickland PA-C PCP - General Physician Ctc Operator 07/19/19 Ailin Decker MD Internal Medicine 07/28/11 Amadeo King MD [address] [place] [address] 493 [place], [place] 406885 Ophthalmology 12/22/19 Joseph Trivedi MD [facility] [address] [facility] 215 [place], [place] 441915 Rheumatology 05/21/20 Rene Grant MD [address] [place] [address] 233405 Assigned Surgical Provider 09/12/22 02/28/25 Manju Perkins RN Registered Nurse 05/24/24 Martine Rios MD [address] [place] [address] [phone] Assigned Nephrology Provider 07/02/24 Gifty Durham RN [facility], [address] Registered Nurse Transplant 10/27/24 02/27/25 Emma Deshpande MD [address] [place], [place] [address] [place] [address] Ophthalmology 12/05/24 documented as of this encounter
--- OUTSIDE RECORDS SUMMARY | 2025-03-16 17:28 | XMS_ITS | Encounter Summary ---
Author Organization [facility] [place] Address [address] [place] [address] Care Team Providers Care City Surveyor Name Role Phone Ailin Decker MD Unavailable Martina Strickland PA-C Primary Care Provider Amadeo King MD Unavailable [phone] Joseph Trivedi MD Unavailable [phone] Rene Grant MD Unavailable [phone] Manju Perkins RN Unavailable Unavaila Martine Sr MD Unavailable [phone] Gifty Durham RN Unavailable Unavailable Emma Deshpande MD Unavailable +[phone] Emma Deshpande MD Unavailable + [phone] Encounter Details Date Type Department Care Team (Late st Contact Info) Description 12/22/2024 [facility] Medical Advice [facility] 9 [place] [address] Manju Perkins, RN Social History [...] AM CDT 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:59 AM 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 MACHINE OPERATOR Gender Identity Female 2019 10:10 AM CDT Sexual Orientation Straight 2019 10 :10 AM CDT documented as of this encounter Plan of Treatment Upcoming Encounters Date Type Department Care Team (Late st Contact Info) Description 03/19/2025 3:00 PM LINDERMAN MACHINE OPERATOR Office Visit [facility] - [address] [address] Amadeo King MD [address] [place] [address] 03/29/2025 7:45 AM LINDERMAN MACHINE OPERATOR Lab [facility] Laboratory [address] [place] [address] 05/15/2025 3:00 PM LINDERMAN MACHINE OPERATOR Office Visit [facility] - [address] [address] Emma Deshpande MD [address] [place] [address] 911 [place] [address] documented as of this encounter Visit Diagnoses Not on filedocumented in this encounter Care Teams City Surveyor Relationship Specialty Start Date End Date Martina Strickland PA-C PCP - General Physician Deputy Building Guard 07/19/19 Ailin Decker MD Internal Medicine 07/28/11 Amadeo King MD [address] [place] [address] 493 [place] [address] Ophthalmology 12/22/19 Joseph Trivedi MD [facility] [address] [facility] 215 [place], [place] 964[address] Rheumatology 05/21/20 Rene Grant MD [address] [place] [address] 379335 Assigned Surgical Provider 09/12/22 02/28/25 Manju Perkins, JENNIFER Registered Nurse 05/24/24 Martine Rios MD [address] [place] [address] [phone] Assigned Nephrology Provider 07/02/24 Gifty Durham RN [facility] [facility], [address] Registered Nurse Transplant 10/27/24 02/27/25 Emma Deshpande MD [address] [place] [address] [phone] Ophthalmology 12/05/24 Emma Deshpande MD [address] [place] [address] [phone] Assigned Surgical Provider 03/01/25 documented as of this encounter
--- OUTSIDE RECORDS SUMMARY | 2025-03-16 17:28 | XMS_ITS | Encounter Summary ---
Author Organization [facility] Address [address] [place] [address] Care Team Providers Care Ward Secretary Name Role Phone Ailin Decker MD Unavailable Martina Strickland PA-C Primary Care Provider Amadeo King MD Unavailable [phone] Joseph Trivedi MD Unavailable [phone] Rene Grant MD Unavailable [phone] Manju Perkins RN Unavailable Unavaila Martine Sr MD Unavailable [phone] Gifty Durham RN Unavailable Unavailable Emma Deshpande MD Unavailable [phone] Emma Deshpande MD Unavailable + [phone] Encounter Details Date Type Department Care Team (Late st Contact Info) Description 12/04/2024 [facility] Medical Advice Initial Department 2450 [place] [address] Manju Perkins, RN Social History Tobacco Use [...] AM CDT 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:59 AM HOUSE CALLS NURSE Gender Identity Female 2019 10:10 AM CDT Sexual Orientation Straight 2019 10 :10 AM CDT documented as of this encounter Plan of Treatment Upcoming Encounters Date Type Department Care Team (Late st Contact Info) Description 03/19/2025 3:00 PM HOUSE CALLS NURSE Office Visit [address] [address] Amadeo King MD [address] [place] [address] 03/29/2025 7:45 AM HOUSE CALLS NURSE Lab [facility] Laboratory [address] [place] [address] 05/15/2025 3:00 PM HOUSE CALLS NURSE Office Visit [address] [address] Emma Deshpande MD [address] [place] [address] 911 [place] [address] documented as of this encounter Visit Diagnoses Not on filedocumented in this encounter Care Teams Ward Secretary Relationship Specialty Start Date End Date Martina Strickland PA-C PCP - General Physician Aerospace Products Sales Engineer 07/19/19 Ailin Decker MD Internal Medicine 07/28/11 Amadeo King MD [address] [place] [address] 493 [place], [place] 609445 Ophthalmology 12/22/19 Joseph Trivedi MD [facility] [address] [facility] 215 [place], [place] 223315 Rheumatology 05/21/20 Rene Grant MD [address] [place] [address] 645855 Assigned Surgical Provider 09/12/22 02/28/25 Manju Perkins, JENNIFER Registered Nurse 05/24/24 Martine Rios MD [address] [place] [address] [phone] Assigned Nephrology Provider 07/02/24 Gifty Durham RN [place] [facility], [address] Registered Nurse Transplant 10/27/24 02/27/25 Emma Deshpande MD [address] [place] [address] [phone] Ophthalmology 12/05/24 Emma Deshpande MD [address] [place] [address] [phone] Assigned Surgical Provider 03/01/25 documented as of this encounter
--- OUTSIDE RECORDS SUMMARY | 2025-03-16 17:28 | XMS_ITS | Encounter Summary ---
Author Organization [facility] Address [address] [place] [address] Care Team Providers Care Occupational Safety And Health Manager Name Role Phone Ailin Decker MD Unavailable Martina Strickland PA-C Primary Care Provider Amadeo King MD Unavailable [phone] Joseph Trivedi MD Unavailable [phone] Rene Grant MD Unavailable [phone] Manju Perkins RN Unavailable Unavaila Martine Sr MD Unavailable [phone] Gifty Durham RN Unavailable Unavailable Emma Deshpande MD Unavailable [phone] Emma Deshpande MD Unavailable + [phone] Encounter Details Date Type Department Care Team (Late st Contact Info) Description 08/18/2024 [facility] Medical Advice Initial Department 2450 [place] [address] Manju Perkins, RN Social History Tobacco Use [...] AM CDT 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:59 AM INDUSTRIAL INSULATOR Gender Identity Female 2019 10:10 AM CDT Sexual Orientation Straight 2019 10 :10 AM CDT documented as of this encounter Plan of Treatment Upcoming Encounters Date Type Department Care Team (Late st Contact Info) Description 03/19/2025 3:00 PM INDUSTRIAL INSULATOR Office Visit [address] [address] Amadeo King MD [address] [place] [address] 03/29/2025 7:45 AM INDUSTRIAL INSULATOR Lab [facility] Laboratory [address] [place] [address] 05/15/2025 3:00 PM INDUSTRIAL INSULATOR Office Visit [address] [address] Emma Deshpande MD [address] [place] [address] 911 [place] [address] documented as of this encounter Visit Diagnoses Not on filedocumented in this encounter Care Teams Occupational Safety And Health Manager Relationship Specialty Start Date End Date Martina Strickland PA-C PCP - General Physician Warehouse Supervisor 07/19/19 Ailin Decker MD Internal Medicine 07/28/11 Amadeo King MD [address] [place] [address] 493 [place], [place] 329175 Ophthalmology 12/22/19 Joseph Trivedi MD [facility] [address] [facility] 215 [place], [place] 374995 Rheumatology 05/21/20 Rene Grant MD [address] [place] [address] 375685 Assigned Surgical Provider 09/12/22 02/28/25 Manju Perkins, JENNIFER Registered Nurse 05/24/24 Martine Rios MD [address] [place] [address] [phone] Assigned Nephrology Provider 07/02/24 Gifty Durham RN [place] [facility], [address] Registered Nurse Transplant 10/27/24 02/27/25 Emma Deshpande MD [address] [place] [address] [phone] Ophthalmology 12/05/24 Emma Deshpande MD [address] [place] [address] [phone] Assigned Surgical Provider 03/01/25 documented as of this encounter
--- OUTSIDE RECORDS SUMMARY | 2025-03-16 17:28 | XMS_ITS | Encounter Summary ---
Author Organization [place] [facility] Address [address] [place] [address]. [place] [address] Care Team Providers Care Neurosurgery Spine Physician Name Role Phone Ailin Decker MD Unavailable Martina Strickland PA-C Primary Care Provider Amadeo King MD Unavailable [phone] Joseph Trivedi MD Unavailable [phone] [facility] Unavailable [phone] Manju Perkins RN Unavailable Unavaila Martine Sr MD Unavailable [phone] Gifty Durham RN Unavailable Unavailable Emma Deshpande MD Unavailable [phone] Encounter Details Date Type Department Care Team (Late st Contact Info) Description 02/09/2025 [facility] Only [facility] 9[address] [place] [address] Juan Diego Jacobo MD [facility] [address] [place] [address] [phone] Limbal stem cell deficiency (Primary Dx) Social History Tobacco Use Types [...] AM CDT 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:59 AM NATURAL RESOURCES PROFESSOR Gender Identity Female 2019 10:10 AM CDT Sexual Orientation Straight 2019 10 :10 AM CDT documented as of this encounter Plan of Treatment Upcoming Encounters Date Type Department Care Team (Late st Contact Info) Description 03/19/2025 3:00 PM NATURAL RESOURCES PROFESSOR Office Visit [facility] - [address] [address] Amadeo King MD [address] [place] [address] 03/29/2025 7:45 AM NATURAL RESOURCES PROFESSOR Lab [facility] [address] [place] [address] 05/15/2025 3:00 PM NATURAL RESOURCES PROFESSOR Office Visit [facility] - [address] [facility] 9A [place] [address] Emma Deshpande MD [address] [place] [address] documented as of this encounter Results * Tacrolimus by Tandem [...] its performance characteristics determined by the [facility], Special Chemistry Laboratory. It has not been cleared or approved by the FDA. The laboratory is regulated under CLIA as qualified to perform high-complexity testing. This test is used for clinical purposes. It should not be regarded as investigational or for research. Martine Rios MD LAB - BLOOD ORDERABLES Final Result [facility] [address] [facility] [address] Building, Room 3-580 [place] [address], [facility] documented in this encounter Visit Diagnoses Diagnosis Limbal stem cell deficiency- Primary documented in this encounter Care Teams Neurosurgery Spine Physician Relationship Specialty Start Date End Date Martina Strickland PA-C PCP - General Physician Mud Jack Nozzle Worker 07/19/19 Ailin Decker MD Internal Medicine 07/28/11 Amadeo King MD 420 [facility] 493 [place] [address] Ophthalmology 12/22/19 Joseph Trivedi MD [facility] [address] [facility] 215 [place], [place] [address] Rheumatology 05/21/20 Rene Grant MD [address] [place] [address] Assigned Surgical Provider 09/12/22 02/28/25 Manju Perkins, JENNIFER Registered Nurse 05/24/24 Martine Rios MD 500 [place] [address] Assigned Nephrology Provider 07/02/24 Gifty Durham RN [facility] [facility], [address] Registered Nurse Transplant 10/27/24 02/27/25 Emma Deshpande MD [address] [place] [address] 911 [place] [address] Ophthalmology 12/05/24 documented as of this encounter
--- OUTSIDE RECORDS SUMMARY | 2025-03-16 17:28 | XMS_ITS | Encounter Summary ---
Author Organization [place] [facility] Address [address] [place] [address] Care Team Providers Care Features Editor Name Role Phone Ailin Decker MD Unavailable Martina Strickland PA-C Primary Care Provider Amadeo King MD Unavailable [phone] Joseph Trivedi MD Unavailable [phone] Rene Grant MD Unavailable [phone] Manju Perkins RN Unavailable Unavaila Martine Sr MD Unavailable [phone] Gifty Durham RN Unavailable Unavailable Emma Deshpande MD Unavailable [phone] Encounter Details Date Type Department Care Team (Late st Contact Info) Description 12/03/2024 Results [facility] 9 [place] [address] Gifty Durham, RN Social History Tobacco Use Types Packs/Day [...] AM CDT 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:59 AM BOXING PROMOTER Gender Identity Female 2019 10:10 AM CDT Sexual Orientation Straight 2019 10 :10 AM CDT documented as of this encounter Plan of Treatment Upcoming Encounters Date Type Department Care Team (Late st Contact Info) Description 03/19/2025 3:00 PM BOXING PROMOTER Office Visit [address] [address] Amadeo King MD [address] [place] [address] 03/29/2025 7:45 AM BOXING PROMOTER Lab [facility] Laboratory [address] [place] [address] 05/15/2025 3:00 PM BOXING PROMOTER Office Visit [address] [address] Emma Deshpande MD [address] [place] [address] 911 [place] [address] documented as of this encounter Visit Diagnoses Not on filedocumented in this encounter Care Teams Features Editor Relationship Specialty Start Date End Date Martina Strickland PA-C PCP - General Physician Nursing Agency Manager 07/19/19 Ailin Decker MD Internal Medicine 07/28/11 Amadeo King MD 420 [facility] 493 [place], [place] [address] Ophthalmology 12/22/19 Joseph Trivedi MD [facility] [address] [facility] 215 [place] [address] Rheumatology 05/21/20 Rene Grant MD [address] [place] [address] Assigned Surgical Provider 09/12/22 02/28/25 Manju Perkins, JENNIFER Registered Nurse 05/24/24 Martine Rios MD [address] [place] [address] Assigned Nephrology Provider 07/02/24 Gifty Durham RN [place] [facility], [address] Registered Nurse Transplant 10/27/24 02/27/25 Emma Deshpande MD [address] [place] [address] 911 [place] [address] Ophthalmology 12/05/24 documented as of this encounter
--- OUTSIDE RECORDS SUMMARY | 2025-03-16 17:28 | XMS_ITS | Encounter Summary ---
Author Organization [facility] Address [address] [place] [address]. [place] [address] Care Team Providers Care Budget Officer Name Role Phone Ailin Decker MD Unavailable Martina Strickland PA-C Primary Care Provider Amadeo King MD Unavailable [phone] Joseph Trivedi MD Unavailable [phone] Rene Grant MD Unavailable [phone] Manju Perkins RN Unavailable Unavaila Martine Sr MD Unavailable [phone] Gifty Durham RN Unavailable Unavailable Emma Deshpande MD Unavailable [phone] Emma Deshpande MD Unavailable + [phone] Encounter Details Date Type Department Care Team (Late st Contact Info) Description 09/09/2023 [facility] Medical [facility] Eye [address] Clin 9A [place] [address] Roseline Zamora Social History Tobacco Use Types [...] CDT 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:59 AM MANAGER UTILIZATION MANAGEMENT Gender Identity Female 2019 10:10 AM CDT Sexual Orientation Straight 2019 10 :10 AM CDT documented as of this encounter Plan of Treatment Upcoming Encounters Date Type Department Care Team (Late st Contact Info) Description 03/19/2025 3:00 PM MANAGER UTILIZATION MANAGEMENT Office Visit [facility] [place] [facility] [address] [facility] 9th [facility] 9A [place] [address] Amadeo King MD 420 [facility] [address] [place] [address] 03/29/2025 7:45 AM MANAGER UTILIZATION MANAGEMENT Lab [facility] Laboratory [address] [place] [address] 05/15/2025 3:00 PM MANAGER UTILIZATION MANAGEMENT Office Visit [facility] [address] [facility] 9th [facility] 9A [place] [address] Emma Deshpande MD 6 [facility] [address] [place] [address] documented as of this encounter Visit Diagnoses Not on filedocumented in this encounter Additional Health Concerns Infection Onset Date Last Indicated Resolved Time Rule Out C-difficile 07/11/2024 07/11/2024 025 11:41 PM MANAGER UTILIZATION MANAGEMENT documented as of this encounter Care Teams Budget Officer Relationship Specialty Start Date End Date Martina Strickland PA-C PCP - General Physician Computer Methods Analyst 07/19/19 Ailin Decker MD Internal Medicine 07/28/11 Amadeo King MD 420 [facility] [address] [place], [place] 143365 Ophthalmology 12/22/19 Joseph Trivedi MD [facility] [address] [facility] 215 [place], [place] [phone] Rheumatology 05/21/20 Rene Grant MD [address] [place] [address] 610885 Assigned Surgical Provider 09/12/22 02/28/25 Manju Perkins, JENNIFER Registered Nurse 05/24/24 Martine Rios MD [address] [place] [address] [phone] Assigned Nephrology Provider 07/02/24 Gifty Durham RN [facility] [facility], [address] Registered Nurse Transplant 10/27/24 02/27/25 Emma Deshpande MD [address] [place] [address] 855415 Ophthalmology 12/05/24 Emma Deshpande MD [address] [place] [address] Assigned Surgical Provider 03/01/25 documented as of this encounter
--- OUTSIDE RECORDS SUMMARY | 2025-03-16 17:29 | XMS_ITS | Encounter Summary ---
Author Organization [place] Address [address] [place] [address] Care Team Providers Care Gis Web Developer Name Role Phone Ailin Decker MD Unavailable Martina Strickland PA-C Primary Care Provider Amadeo King MD Unavailable [phone] Joseph Trivedi MD Unavailable [phone] Rene Grant MD Unavailable [phone] Manju Perkins RN Unavailable Unavaila Martine Sr MD Unavailable +[phone] Gifty Durham RN Unavailable Unavailable Emma Deshpande MD Unavailable +[phone] Emma Deshpande MD Unavailable + [phone] Encounter Details Date Type Department Care Team (Late st Contact Info) Description 05/24/2024 MyC Medical Advice [facility] [address] [place] [address] Manju Perkins, RN Social History [...] AM CDT 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:59 AM GEOPHYSICAL SUPPORT SPECIALIST Gender Identity Female 2019 10:10 AM CDT Sexual Orientation Straight 2019 10 :10 AM CDT documented as of this encounter Plan of Treatment Upcoming Encounters Date Type Department Care Team (Late st Contact Info) Description 03/19/2025 3:00 PM GEOPHYSICAL SUPPORT SPECIALIST Office Visit [facility] Eye [facility] [address] [facility] [facility] [address] [place] [address] Amadeo King MD [address] [facility] 493 [place] [address] 03/29/2025 7:45 AM GEOPHYSICAL SUPPORT SPECIALIST Lab [facility] Laboratory [address] [place] [address] 05/15/2025 3:00 PM GEOPHYSICAL SUPPORT SPECIALIST Office Visit [facility] [address] [facility] [address] [facility] 9A [place] [address] Emma Deshpande MD 6 [facility] 911 [place] [address] documented as of this encounter Visit Diagnoses Not on filedocumented in this encounter Additional Health Concerns Infection Onset Date Last Indicated Resolved Time Rule Out C-difficile 07/11/2024 07/11/2024 025 11:41 PM GEOPHYSICAL SUPPORT SPECIALIST documented as of this encounter Care Teams Gis Web Developer Relationship Specialty Start Date End Date Martina Strickland PA-C PCP - General Physician Room Service Attendant 07/19/19 Ailin Decker MD Internal Medicine 07/28/11 Amadeo King MD [address] [facility] 493 [place], [place] 08[address] Ophthalmology 12/22/19 Joseph Trivedi MD [facility] [address] [facility] 215 [place], [place] [address] Rheumatology 05/21/20 Rene Grant MD [address] [place] [address] 987425 Assigned Surgical Provider 09/12/22 02/28/25 Manju Perkins, JENNIFER Registered Nurse 05/24/24 Martine Rios MD [address] [place] [address] 802125 Assigned Nephrology Provider 07/02/24 Gifty Durham RN [facility], [address] Registered Nurse Transplant 10/27/24 02/27/25 Emma Deshpande MD [address] [place] [address] Ophthalmology 12/05/24 Emma Deshpande MD [address] [place] [address] Assigned Surgical Provider 03/01/25 documented as of this encounter
--- OUTSIDE RECORDS SUMMARY | 2025-03-16 17:29 | XMS_ITS | Encounter Summary ---
Author Organization [place] Address [address] [place] [address]37 Care Team Providers Care Basket Mender Name Role Phone Ailin Decker MD Unavailable Martina Strickland PA-C Primary Care Provider Amadeo King MD Unavailable [phone] Amadeo King MD Unavailable [phone] Joseph Trivedi MD Unavailable [phone] Kishan Spain OD Unavailable [phone] Emma Deshpande MD Unavailable [phone] Rene Grant MD Unavailable [phone] Amadeo Winston MD Unavailable [phone] Amadeo Winston MD Unavailable [phone] Rene Grant MD Unavailable [phone] Rene Grant MD Unavailable [phone] Manju Perkins RN Unavailable Unavaila Martine Sr MD Unavailable +[phone] Gifty Durham RN Unavailable Unavailable Emma Deshpande MD Unavailable [phone] Emma Deshpande MD Unavailable [phone] Reason for Visit * Reason Comments Medication Refill PREDNISOLONE ACET O/ DILSHAD 1% Encounter Details Date Type Department Care Team (Late st Contact Info) Description 05/28/2021 Refill [facility] Eye Clinic - [address] 4th [place] [address] Silas Cody MD 2[address] [place] [address] Medication Refill (PREDNISOLONE ACET O/DILSHAD 1%) Social [...] AM CDT 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:59 AM PERMACULTURE CONTRACTOR Gender Identity Female 2019 10:10 AM CDT Sexual Orientation Straight 2019 10 :10 AM CDT COVID-19 Exposure Response Date Recorded In the last month, have you been in contact with someone who was confirmed or suspected to have Coronavirus / COVID-19? No / Unsure 05/29/2021 2:48 PM PERMACULTURE CONTRACTOR documented as of this encounter Miscellaneous Notes [...] Leo RN Central Triage Red Flags/Med Refills ACULTURE CONTRACTOR documented in this encounter Plan of Treatment Upcoming Encounters Date Type Department Care Team (Late st Contact Info) Description 03/19/2025 3:00 PM PERMACULTURE CONTRACTOR Office Visit [facility] Eye [address] [address] Amadeo King MD [address] [place] [address] 493 [place] [address] 03/29/2025 7:45 AM PERMACULTURE CONTRACTOR Lab 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 documented in this encounter Additional Health Concerns Infection Onset Date Last Indicated Resolved Time Rule Out C-difficile 07/11/2024 07/11/2024 025 11:41 PM PERMACULTURE CONTRACTOR documented as of this encounter Care Teams Basket Mender Relationship Specialty Start Date End Date Martina Strickland PA-C PCP - General Physician Model Maker Scale 07/19/19 Ailin Decker MD Internal Medicine 07/28/11 Amadeo King MD 420 [facility] 493 [place], [place] 2055[address] Ophthalmology 12/22/19 Amadeo King MD 420 [facility] 493 [place], [place] 934905 Assigned PCP 04/07/20 06/02/23 Joseph Trivedi MD [facility] 7[address] [facility] 215 [place], [place] 376775 Rheumatology 05/21/20 Kishan Spain, OD 909 [facility] 4th [place] [address] Assigned Surgical Provider 12/08/20 03/27/22 Emma Deshpande MD 6 [facility] 911 [place], [place] [phone] Assigned Surgical Provider 03/28/22 04/03/22 Rene Grant MD 6 [place], [place] [phone] Assigned Surgical Provider 04/04/22 08/21/22 Amadeo Winston MD 420 [place], [place] [phone] Assigned Surgical Provider 08/22/22 08/28/22 Amadeo Winston MD [address] [place] [address] [phone] Assigned Surgical Provider 09/05/22 09/11/22 Rene Grant MD [address] [place] [address] 445715 Assigned Surgical Provider 08/29/22 09/04/22 Rene Grant MD [address] [place] [address] 998145 Assigned Surgical Provider 09/12/22 02/28/25 Manju Perkins, JENNIFER Registered Nurse 05/24/24 Martine Rios MD [address] [place] [address] [phone] Assigned Nephrology Provider 07/02/24 Gifty Durham RN [facility], [address] Registered Nurse Transplant 10/27/24 02/27/25 Emma Deshpande MD [address] [place] [address] 834245 Ophthalmology 12/05/24 Emma Deshpande MD [address] [place] [address] Assigned Surgical Provider 03/01/25 documented as of this encounter
--- OUTSIDE RECORDS SUMMARY | 2025-03-16 17:29 | XMS_ITS | Encounter Summary ---
Author Organization [place] Address [address] [place] [address] Care Team Providers Care Fagot Maker Name Role Phone Ailin Decker MD Unavailable Martina Strickland PA-C Primary Care Provider Amadeo King MD Unavailable [phone] Joseph Trivedi MD Unavailable [phone] Rene Grant MD Unavailable [phone] Manju Perkins RN Unavailable Unavaila Martine Sr MD Unavailable [phone] Gifty Durham RN Unavailable Unavailable Emma Deshpande MD Unavailable [phone] Emma Deshpande MD Unavailable + [phone] Encounter Details Date Type Department Care Team (Late st Contact Info) Description 08/30/2024 [facility] Medical Advice [facility] Trans[facility] Clinic 9 [place] [address] Manju Perkins, RN Social History [...] CDT 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:59 AM DIRECTOR METABOLISM Gender Identity Female 2019 10:10 AM CDT Sexual Orientation Straight 2019 10 :10 AM CDT documented as of this encounter Plan of Treatment Upcoming Encounters Date Type Department Care Team (Late st Contact Info) Description 03/19/2025 3:00 PM DIRECTOR METABOLISM Office Visit [facility] Eye [facility] - [address] [address] Amadeo King MD [address] [place] [address] 03/29/2025 7:45 AM DIRECTOR METABOLISM Lab [facility] [address] [place] [address] 05/15/2025 3:00 PM DIRECTOR METABOLISM Office Visit [facility] Eye [facility] - [address] [address] Emma Deshpande MD [address] [place] [address] 911 [place] [address] documented as of this encounter Visit Diagnoses Not on filedocumented in this encounter Care Teams Fagot Maker Relationship Specialty Start Date End Date Martina Strickland PA-C PCP - General Physician Varnish Melter 07/19/19 Ailin Decker MD Internal Medicine 07/28/11 Amadeo King MD [address] [place] [address] 493 [place] [address] Ophthalmology 12/22/19 Joseph Trivedi MD [facility] [address] [facility] 215 [place], [place] 87[address] Rheumatology 05/21/20 Rene Grant MD [address] [place] [address] 337505 Assigned Surgical Provider 09/12/22 02/28/25 Manju Perkins, JENNIFER Registered Nurse 05/24/24 Martine Rios MD [address] [place] [address] 072965 Assigned Nephrology Provider 07/02/24 Gifty Durham RN [facility], [address] Registered Nurse Transplant 10/27/24 02/27/25 Emma Deshpande MD [address] [place] [address] 129495 Ophthalmology 12/05/24 Emma Deshpande MD [address] [place] [address] 824725 Assigned Surgical Provider 03/01/25 documented as of this encounter
--- OUTSIDE RECORDS SUMMARY | 2025-03-16 17:29 | XMS_ITS | Encounter Summary ---
Author Organization [place] Address [address] [place] [address]38 Care Team Providers Care Chemical Librarian Name Role Phone Ailin Decker MD Unavailable Martina tSrickland PA-C Primary Care Provider Amadeo King MD Unavailable [phone] Joseph Trivedi MD Unavailable [phone] Rene Grant MD Unavailable [phone] Manju Perkins RN Unavailable Unavaila Martine Sr MD Unavailable [phone] Gifty Durham RN Unavailable Unavailable Emma Deshpande MD Unavailable [phone] Emma Deshpande MD Unavailable + [phone] Encounter Details Date Type Department Care Team (Late st Contact Info) Description 09/05/2024 MyC Medical Advice Initial Department [address] [place] [address] Manju Perkins, RN Social History Tobacco Use [...] AM CDT 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:59 AM PRIOR AUTHORIZATION NURSE Gender Identity Female 2019 10:10 AM CDT Sexual Orientation Straight 2019 10 :10 AM CDT documented as of this encounter Plan of Treatment Upcoming Encounters Date Type Department Care Team (Late st Contact Info) Description 03/19/2025 3:00 PM PRIOR AUTHORIZATION NURSE Office Visit [address] [address] Amadeo King MD [address] [place] [address] 03/29/2025 7:45 AM PRIOR AUTHORIZATION NURSE Lab [facility] Laboratory [address] [place] [address] 05/15/2025 3:00 PM PRIOR AUTHORIZATION NURSE Office Visit [address] [address] Emma Deshpande MD [address] [place] [address] 911 [place] [address] documented as of this encounter Visit Diagnoses Not on filedocumented in this encounter Care Teams Chemical Librarian Relationship Specialty Start Date End Date Martina Strickland PA-C PCP - General Physician Mill Platform Supervisor 07/19/19 Ailin Decker MD Internal Medicine 07/28/11 Amadeo King MD [address] [place] [address] 493 [place], [place] 928155 Ophthalmology 12/22/19 Joseph Trivedi MD [facility] [address] [facility] 215 [place], [place] [address] Rheumatology 05/21/20 Rene Grant MD [address] [place] [address] 625165 Assigned Surgical Provider 09/12/22 02/28/25 Manju Perkins, JENNIFER Registered Nurse 05/24/24 Martine Rios MD [address] [place] [address] 833365 Assigned Nephrology Provider 07/02/24 Gifty Durham RN [facility], [address] Registered Nurse Transplant 10/27/24 02/27/25 Emma Deshpande MD [address] [place] [address] [phone] Ophthalmology 12/05/24 Emma Deshpande MD [address] [place] [address] [phone] Assigned Surgical Provider 03/01/25 documented as of this encounter
--- OUTSIDE RECORDS SUMMARY | 2025-03-16 17:29 | XMS_ITS | Encounter Summary ---
Author Organization [place] Address [address] [place] [address] Care Team Providers Care Timber Bucker Name Role Phone Ailin Decker MD Unavailable Martina Strickland PA-C Primary Care Provider Amadeo King MD Unavailable [phone] Joseph Trivedi MD Unavailable [phone] Rene Grant MD Unavailable [phone] Manju Perkins RN Unavailable Unavaila Martine Sr MD Unavailable [phone] Gifty Durham RN Unavailable Unavailable Emma Deshpande MD Unavailable [phone] Emma Deshpande MD Unavailable + [phone] Encounter Details Date Type Department Care Team (Late st Contact Info) Description 06/28/2024 Orders Only [facility] [address] [place] [address] Outside, Provider Social History Tobacco Use Types [...] AM CDT 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:59 AM TRANSPLANT REGISTERED NURSE Gender Identity Female 2019 10:10 AM CDT Sexual Orientation Straight 2019 10 :10 AM CDT documented as of this encounter Plan of Treatment Upcoming Encounters Date Type Department Care Team (Late st Contact Info) Description 03/19/2025 3:00 PM TRANSPLANT REGISTERED NURSE Office Visit [facility] 516 [facility] 9[facility] 9A [place] [address] Amadeo King MD 420 [facility] 493 [place] [address] 03/29/2025 7:45 AM TRANSPLANT REGISTERED NURSE Lab [facility] Laboratory [address] [place] [address] 05/15/2025 3:00 PM TRANSPLANT REGISTERED NURSE Office Visit [facility] 516 [facility] 9th [facility] 9A [place] [address] Emma Deshpande MD 516 [facility] 911 [place] [address] documented as of this encounter Procedures Procedure Name Priority Date/Time Associated Diagnosis Comments HLA RESULT REPORT 06/28/2024 1:23 PM TRANSPLANT REGISTERED NURSE documented in this encounter Results * HLA Result Report (06/28/2024 1:23 PM TRANSPLANT REGISTERED NURSE) us Provider Outside LAB - IMMUNOLOGY ORDERABLES Fin al Result documented in this encounter Visit Diagnoses Not on filedocumented in this encounter Additional Health Concerns Infection Onset Date Last Indicated Resolved Time Rule Out C-difficile 07/11/2024 07/11/2024 025 11:41 PM TRANSPLANT REGISTERED NURSE documented as of this encounter Care Teams Timber Bucker Relationship Specialty Start Date End Date Martina Strickland PA-C PCP - General Physician Paper Products Supervisor 07/19/19 Ailin Decker MD Internal Medicine 07/28/11 Amadeo King MD 420 [facility] 493 [place], [place] 4[address] Ophthalmology 12/22/19 Joseph Trivedi MD [facility] [address] [facility] 215 [place], [place] [address] Rheumatology 05/21/20 Rene Grant MD [address] [place] [address] 971575 Assigned Surgical Provider 09/12/22 02/28/25 Manju Perkins, JENNIFER Registered Nurse 05/24/24 Martine Rios MD [address] [place] [address] [phone] Assigned Nephrology Provider 07/02/24 Gifty Durham RN [place], [address] Registered Nurse Transplant 10/27/24 02/27/25 Emma Deshpande MD [address] [place] [address] 428085 Ophthalmology 12/05/24 Emma Deshpande MD [address] [place] [address] 444115 Assigned Surgical Provider 03/01/25 documented as of this encounter
--- OUTSIDE RECORDS SUMMARY | 2025-03-16 17:29 | XMS_ITS | Encounter Summary ---
Author Organization [place] Address [address] [place] [address] Care Team Providers Care Wine Consultant Name Role Phone Ailin Decker MD Unavailable Martina Strickland PA-C Primary Care Provider Amadeo King MD Unavailable [phone] Joseph Trivedi MD Unavailable [phone] Rene Grant MD Unavailable [phone] Manju Perkins RN Unavailable Unavaila Martine Sr MD Unavailable [phone] Gifty Durham RN Unavailable Unavailable Emma Deshpande MD Unavailable +[phone] Emma Deshpande MD Unavailable + [phone] Encounter Details Date Type Department Care Team (Late st Contact Info) Description 06/19/2024 [facility] Medical Advice [facility] Transplant Clinic 9 [place] [address] Manju Perkins, RN Social History [...] CDT 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:59 AM WATCH REPAIRER APPRENTICE Gender Identity Female 2019 10:10 AM CDT Sexual Orientation Straight 2019 10 :10 AM CDT documented as of this encounter Plan of Treatment Upcoming Encounters Date Type Department Care Team (Late st Contact Info) Description 03/19/2025 3:00 PM WATCH REPAIRER APPRENTICE Office Visit [facility] Eye [facility] 516 [facility] 9[facility] [address] [facility] 9A [place] [address] Amadeo King MD 420 [facility] 493 [place] [address] 03/29/2025 7:45 AM WATCH REPAIRER APPRENTICE Lab [facility] Laboratory [address] [place] [address] 05/15/2025 3:00 PM WATCH REPAIRER APPRENTICE Office Visit [facility] 516 [facility] 9th [facility] 9A [place] [address] Emma Deshpande MD 6 [facility] 911 [place] [address] documented as of this encounter Visit Diagnoses Not on filedocumented in this encounter Additional Health Concerns Infection Onset Date Last Indicated Resolved Time Rule Out C-difficile 07/11/2024 07/11/2024 025 11:41 PM WATCH REPAIRER APPRENTICE documented as of this encounter Care Teams Wine Consultant Relationship Specialty Start Date End Date Martina Strickland PA-C PCP - General Physician Fishing Gear Mechanic 07/19/19 Ailin Decker MD Internal Medicine 07/28/11 Amadeo King MD 420 [facility] 493 [place], [place] 5[address] Ophthalmology 12/22/19 Joseph Trivedi MD [facility] [address] [facility] 215 [place], [place] [address] Rheumatology 05/21/20 Rene Grant MD [address] [place] [address] 212405 Assigned Surgical Provider 09/12/22 02/28/25 Manju Perkins, JENNIFER Registered Nurse 05/24/24 Martine Rios MD [address] [place] [address] 106325 Assigned Nephrology Provider 07/02/24 Gifty Durham RN [facility], [address] Registered Nurse Transplant 10/27/24 02/27/25 Emma Deshpande MD [address] [place] [address] Ophthalmology 12/05/24 Emma Deshpande MD [address] [place] [address] Assigned Surgical Provider 03/01/25 documented as of this encounter
--- OUTSIDE RECORDS SUMMARY | 2025-03-16 17:29 | XMS_ITS | Data Portability ---
Author Organization [place] [facility] [place] [facility] Address [address] [facility] [address] [place] [address] Care Team Providers Care Extrusion Utility Worker Name Role Phone [facility] Primary Care Provider Assessment No assessment recorded. Plan of Treatment Reminders Order Date Submit Date Provider Last Modified By Organization Details Last Modified Time Details Appointments None recorded. Lab urinalysis , dipstick 2021 022 [email or web address] [facility], [address], [place], [address], 16:12:15 Referral None recorded. Procedures None recorded. Surgeries None recorded. Imaging None recorded. Medication Orders None recorded. Patient TargetsNo targets recorded. Patient InstructionsNo instructions recorded. Reason for Referral None Reported. Results Created Date Observation Date Name Description Value Unit Range Abnormal Flag Note LastModifiedBy Organization Detail LastModifiedTime 03/11/20 22 03/11/2022 urina lysis , dipst ick pH-Status 6.5 Not Available [facility] [address], [place], [address], 03/11/2022 16:11:45 03/11/20 22 03/11/2022 urina lysis , dipst ick Leuko-Status Small Not Available [facility] [address], [place], [address], 03/11/2022 16:11:45 03/13/20 22 03/11/2022 bladd er scan (PROC ) No observ ation record ed. BARCODE Not Available 2021 17:09:20 Result Notes None recorded. Procedures Surgical History Date Name Laterality Status Provider Name and Address Organization Details Recorded Time Bladder Scan completed Banrey Jo [facility] Urology 03/11/2022 16:11:42 Imaging Results None recorded. Procedure Notes None recorded. Medical Equipment None [...] Updated DateTime 03/11/2022 160.02 cm 38.1 kg/m2 38770.36 g Barney Jo [facility] Urology 03/11/2022 16:15:13 Social History Question Answer Notes LastModified by Organizat ion Details LastModified Time Tobacco Smoking Status Never Smoker Barney holcomb [facility] Urology 03/11/2022 16:12:59 What Is Your Level [...] Pressure N Kidney Stones N Cancer N Lung Disease N Depression N High Cholesterol N GERD/Acid Reflux N Heart Disease N Gynecological HistoryNo gynecological history recorded. Obstetrics History GPAL:G 1 P 0 0 0 0 Past Encounters Encounter ID Performer Location Encounter Start Date Encounter Closed Date Diagnosis/Indication Diagnosis SNOMED-CT Code Diagnosis ICD10 Code Diagnosis IMO Codes Diagnosis Note [id number] VLAD JOY [facility] [address] 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
--- OUTSIDE RECORDS SUMMARY | 2025-03-16 17:29 | XMS_ITS | Encounter Summary ---
Author Organization [facility] Address [address] [place] [address] Care Team Providers Care Direct Customer Service Representative Name Role Phone Ailin Decker MD Unavailable Martina Strickland PA-C Primary Care Provider Amadeo King MD Unavailable [phone] Joseph Trivedi MD Unavailable [phone] Rene Grant MD Unavailable [phone] Manju Perkins RN Unavailable Unavaila Martine Sr MD Unavailable [phone] Gifty Durham RN Unavailable Unavailable Emma Deshpande MD Unavailable Emma Deshpande MD Unavailable [phone] Reason for Visit * Reason Onset Date Comments Other 06/05/2024 Encounter Details Date Type Department Care Team (Late st Contact Info) Description 06/05/[address] [facility] Eye [facility] 516 [facility] 9th Ok Clin 9A [place] [address] Amadeo King MD [address] [place] [address] Other Social History Tobacco Use Types [...] CDT 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:59 AM JUNIOR ASSISTANT MANAGER Gender Identity Female 2019 10:10 AM CDT Sexual Orientation Straight 2019 10 :10 AM CDT documented as of this encounter Miscellaneous Notes * Telephone Encounter - MorganalbinAshley bennett - 06/05/2024 2:37 PM CST [facility] Phone Message May a detailed message be left on voicemail: yes Reason for Call: Other: Patient called wanting to let care team know that she had a pre-op physicaldone today and will be getting over the notes from pre-op. FYI. Action Taken: Other: eye Travel Screening: Not Applicable OR ASSISTANT MANAGER documented in this encounter Plan of Treatment Upcoming Encounters Date Type Department Care Team (Late st Contact Info) Description 03/19/2025 3:00 PM JUNIOR ASSISTANT MANAGER Office [facility] - [address] 9[facility] Clin 9A [place] [address] Amadeo King MD [address] [address] 03/29/2025 7:45 AM JUNIOR ASSISTANT MANAGER Lab [facility] Laboratory [address] [place] [address] 05/15/2025 3:00 PM JUNIOR ASSISTANT MANAGER Office [facility] - [place] 0[address]676 [facility] 9[facility] 9A [place] [address] Emma Deshpande MD 6 [facility] 911 [place], [place] [address]85 documented as of this encounter Visit Diagnoses Not on filedocumented in this encounter Additional Health Concerns Infection Onset Date Last Indicated Resolved Time Rule Out C-difficile 07/11/2024 07/11/2024 025 11:41 PM JUNIOR ASSISTANT MANAGER documented as of this encounter Care Teams Direct Customer Service Representative Relationship Specialty Start Date End Date Martina Strickland PA-C PCP - General Physician Steamfitter Apprentice 07/19/19 Ailin Decker MD Internal Medicine 07/28/11 Amadeo King MD 420 [facility] 493 [place], [place] 8[address] Ophthalmology 12/22/19 Joseph Trivedi MD [facility] [address] [facility] 215 [place], [place] [address] Rheumatology 05/21/20 Rene Grant MD [address] [place] [address] 284355 Assigned Surgical Provider 09/12/22 02/28/25 Manju Perkins, JENNIFER Registered Nurse 05/24/24 Martine Rios MD [address] [place] [address] [phone] Assigned Nephrology Provider 07/02/24 Gifty Durham RN [facility], [address] Registered Nurse Transplant 10/27/24 02/27/25 Emma Deshpande MD [address] [address] Ophthalmology 12/05/24 Emma Deshpande MD [address] [address] Assigned Surgical Provider 03/01/25 documented as of this encounter
--- OUTSIDE RECORDS SUMMARY | 2025-03-16 17:29 | XMS_ITS | Encounter Summary ---
Author Organization [facility] Address [address] [place] [address] Care Team Providers Care Manager Sap Name Role Phone Ailin Decker MD Unavailable Martina Strickland PA-C Primary Care Provider Amadeo King MD Unavailable [phone] Joseph Trivedi MD Unavailable [phone] Rene Grant MD Unavailable [phone] Manju Perkins RN Unavailable Unavaila Martine Sr MD Unavailable [phone] Gifty Durham RN Unavailable Unavailable Emma Deshpande MD Unavailable [phone] Emma Deshpande MD Unavailable + [phone] Encounter Details Date Type Department Care Team (Late st Contact Info) Description 07/07/2024 [facility] [place] 9 [place] [address] Manju Perkins, RN Diarrhea (Primary Dx) [...] AM CDT 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:59 AM REPRODUCTIVE SURGEON Gender Identity Female 2019 10:10 AM CDT Sexual Orientation Straight 2019 10 :10 AM CDT documented as of this encounter Plan of Treatment Upcoming Encounters Date Type Department Care Team (Late st Contact Info) Description 03/19/2025 3:00 PM REPRODUCTIVE SURGEON Office Visit [place] [id number] [facility] 9[facility] 9A [place] [address] Amadeo King MD [address] [place] [address] 493 [place] [address] 03/29/2025 7:45 AM REPRODUCTIVE SURGEON Lab [facility] Laboratory [address] [place] [address] 05/15/2025 3:00 PM REPRODUCTIVE SURGEON Office Visit [address] 9[facility] 9A [place] [address] Emma Deshpande MD 6 [facility] 911 [place] [address] documented as of this encounter Results * Enteric Bacteria and Virus Panel by BERTA Stool (07/12/2024 6:30 AM REPRODUCTIVE SURGEON) Campylobacter species Negative Negative 07/13/2024 4:11 PM REPRODUCTIVE SURGEON [facility] Salmonella species Negative Negative 2024 4:11 PM REPRODUCTIVE SURGEON [facility] Vibrio species Negative Negative 07/13/2024 4:11 PM REPRODUCTIVE SURGEON [facility] Vibrio cholerae Negative Negative 4:11 PM REPRODUCTIVE SURGEON [facility] Yersinia enterocolitica Negative Negative 07/13/2024 4:11 PM REPRODUCTIVE SURGEON [facility] Enteropathogenic E. coli (EPEC) Negative Negative, NA 07/13/2024 4:11 PM REPRODUCTIVE SURGEON [facility] Shiga-like toxin-producing E. coli (STEC) Negative Negative 07/13/2024 4:11 PM REPRODUCTIVE SURGEON [facility] Shigella/Enteroinvas kassidy E. coli (EIEC) Negative Negative 07/13/2024 4:11 PM REPRODUCTIVE SURGEON [facility] Cryptosporidium species Negative Negative 07/13/2024 4:11 PM REPRODUCTIVE SURGEON [facility] Giardia lamblia Negative Negative 4:11 PM REPRODUCTIVE SURGEON [facility] Norovirus Gl/Gll Negative Negative 07/14/19 4:11 PM REPRODUCTIVE SURGEON [facility] Rotavirus A Negative Negative 07/13/2024 4:11 PM REPRODUCTIVE SURGEON [facility] Plesiomonas shigelloides Negative Negative 07/13/2024 4:11 PM REPRODUCTIVE SURGEON [facility] Enteroaggregative E. coli (EAEC) Negative Negative 07/13/2024 4:11 PM REPRODUCTIVE SURGEON [facility] Enterotoxigenic E. coli (ETEC) Negative Negative 07/13/2024 4:11 PM REPRODUCTIVE SURGEON [facility] E. coli O157 NA Negative, NA 07/13/2024 4:11 PM REPRODUCTIVE SURGEON [facility] Cyclospora cayetanensis Negative Negative 07/13/2024 4:11 PM REPRODUCTIVE SURGEON [facility] Entamoeba histolytica Negative Negative 07/13/2024 4:11 PM REPRODUCTIVE SURGEON [facility] Adenovirus F40/41 Negative Negative 025 4:11 PM REPRODUCTIVE SURGEON [facility] Astrovirus Negative Negative 07/13/2024 4:11 PM REPRODUCTIVE SURGEON [facility] Sapovirus Negative Negative 07/13/2024 4:11 PM REPRODUCTIVE SURGEON [facility] Stool RECTAL CONTENTS / Unknown Non-blood Collection / Unknown 07/12/2024 6:30 AM REPRODUCTIVE SURGEON 07/12/2024 3:12 PM REPRODUCTIVE SURGEON Narrative [facility] - 07/13/2024 4:11 PM REPRODUCTIVE SURGEON Assay performed using the FDA-cleared FilmArray GI Panel from [employer] A negative result should not rule [...] by the [facility]. This laboratory is certified under the Clinical Laboratory Improvement Amendments of 1988 (CLIA-88) as qualified to perform high complexity clinical laboratory testing. Martine Rios MD LAB - MICRO GENERAL ORDERABL ES Final Result [facility] Inf. Diseases Diag. Lab 500 [facility], [address] [place] [address] * CMV Quantitative, PCR (Blood) (07/10/2024 5:33 PM REPRODUCTIVE SURGEON) CMV DNA IU/mL Not Detected Not Detected IU/mL 07/11/2024 10:48 AM REPRODUCTIVE SURGEON [facility] CMV Quantitative PCR Specimen Type Blood 07/11/2024 10:48 AM REPRODUCTIVE SURGEON [facility] Blood STRUCTURE OF LEFT UPPER LIMB / Unknown Venipuncture / Unknown 07/10/2024 5:33 PM REPRODUCTIVE SURGEON 07/10/2024 5:33 PM REPRODUCTIVE SURGEON Narrative [facility] - 07/11/2024 10:48 AM REPRODUCTIVE SURGEON The armando CMV assay is a FDA-approved [...] only. The [facility] has validated the performance characteristics of the armando CMV assay for plasma and urine. us Martine Rios MD LAB - MICRO GENERAL ORDERABL ES Final Result [facility] Inf. Diseases Diag. Lab 500 [facility], [address] [place] [address] documented in this encounter Visit Diagnoses Diagnosis Diarrhea- Primary documented in this encounter Additional Health Concerns Infection Onset Date Last Indicated Resolved Time Rule Out C-difficile 07/11/2024 07/11/2024 025 11:41 PM REPRODUCTIVE SURGEON documented as of this encounter Care Teams Manager Sap Relationship Specialty Start Date End Date Martina Strickland PA-C PCP - General Physician Front Office Attendant 07/19/19 Ailin Decker MD Internal Medicine 07/28/11 Amadeo King MD 420 [facility] 493 [place], [place] [phone] Ophthalmology 12/22/19 Joseph Trivedi MD [facility] [address] [place] 215 [place], [place] [address] Rheumatology 05/21/20 Rene Grant MD [address] [place] [address] Assigned Surgical Provider 09/12/22 02/28/25 Manju Perkins, RN Registered Nurse 05/24/24 Martine Rios MD [address] [place] [address] 343505 Assigned Nephrology Provider 07/02/24 Gifty Durham RN [place] [facility] [facility], [address] Registered Nurse Transplant 10/27/24 02/27/25 Emma Deshpande MD [address] [place] [address] [id number] MD [place] 12/05/24 Emma Deshpande MD [address] [place] [address] [phone] Assigned Surgical Provider 03/01/25 documented as of this encounter
--- OUTSIDE RECORDS SUMMARY | 2025-03-16 17:29 | XMS_ITS | Encounter Summary ---
Author Organization [facility] Address [address] [place] [address] Care Team Providers Care Front Edger Name Role Phone Ailin Decker MD Unavailable Martina Strickland PA-C Primary Care Provider Amadeo King MD Unavailable [phone] Joseph Trivedi MD Unavailable [phone] Rene Grant MD Unavailable [phone] Manju Perkins RN Unavailable Unavaila Martine Sr MD Unavailable [phone] Gifty Durham RN Unavailable Unavailable Emma Deshpande MD Unavailable [phone] Emma Deshpande MD Unavailable + [phone] Encounter Details Date Type Department Care Team (Late st Contact Info) Description 05/19/2024 [facility] Medical Advice [facility] 9 [place] [address] Manju Perkins, RN Social History [...] AM CDT 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:59 AM PERFUMER Gender Identity Female 2019 10:10 AM CDT Sexual Orientation Straight 2019 10 :10 AM CDT documented as of this encounter Plan of Treatment Upcoming Encounters Date Type Department Care Team (Late st Contact Info) Description 03/19/2025 3:00 PM PERFUMER Office Visit [facility] 516 [facility] [address] Clin [address] [place] [address] Amadeo King MD 420 [facility] 493 [place] [address] 03/29/2025 7:[address] [facility] [address] [place] [address] 05/15/2025 3:00 PM PERFUMER Office [facility] 516 [facility] [address] [facility] 9A [place] [address] Emma Deshpande MD 6 [facility] 911 [place] [address] documented as of this encounter Visit Diagnoses Not on filedocumented in this encounter Additional Health Concerns Infection Onset Date Last Indicated Resolved Time Rule Out C-difficile 07/11/2024 07/11/2024 025 11:41 PM PERFUMER documented as of this encounter Care Teams Front Edger Relationship Specialty Start Date End Date Martina Strickland PA-C PCP - General Physician Shaft Headman 07/19/19 Ailin Decker MD Internal Medicine 07/28/11 Amadeo King MD 420 [facility] 493 [place], [place] 7[address] Ophthalmology 12/22/19 Joseph Trivedi MD [facility] [address] [facility] 215 [place], [place] 279[address] Rheumatology 05/21/20 Rene Grant MD [address] [place] [address] 018425 Assigned Surgical Provider 09/12/22 02/28/25 Manju Perkins, JENNIFER Registered Nurse 05/24/24 Martine Rios MD [address] [place] [address] 334155 Assigned Nephrology Provider 07/02/24 Gifty Durham RN [facility], [address] Registered Nurse Transplant 10/27/24 02/27/25 Emma Deshpande MD [address] [place] [address] Ophthalmology 12/05/24 Emma Deshpande MD [address] [place] [address] Assigned Surgical Provider 03/01/25 documented as of this encounter
--- OUTSIDE RECORDS SUMMARY | 2025-03-16 17:29 | XMS_ITS | Encounter Summary ---
Author Organization [facility] Address [address] [place] [address] Care Team Providers Care Comsec Manager Name Role Phone Ailin Decker MD Unavailable Martina Strickland PA-C Primary Care Provider Amadeo King MD Unavailable [phone] Joseph Trivedi MD Unavailable [phone] Rene Grant MD Unavailable [phone] Manju Perkins RN Unavailable Unavaila Martine Sr MD Unavailable [phone] Gifty Durham RN Unavailable Unavailable Emma Deshpande MD Unavailable [phone] Emma Deshpande MD Unavailable + [phone] Encounter Details Date Type Department Care Team (Late st Contact Info) Description 08/30/2024 [facility] Advice Initial Department 2450 [place] [address] Manju Perkins, RN Social History Tobacco Use [...] AM CDT 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:59 AM CAREER GUIDANCE COUNSELOR Gender Identity Female 2019 10:10 AM CDT Sexual Orientation Straight 2019 10 :10 AM CDT documented as of this encounter Plan of Treatment Upcoming Encounters Date Type Department Care Team (Late st Contact Info) Description 03/19/2025 3:00 PM CAREER GUIDANCE COUNSELOR Office Visit [address] [address] Amadeo King MD [address] [place] [address] 03/29/2025 7:45 AM CAREER GUIDANCE COUNSELOR Lab [facility] Laboratory [address] [place] [address] 05/15/2025 3:00 PM CAREER GUIDANCE COUNSELOR Office Visit [address] [address] Emma Deshpande MD [address] [place] [address] 911 [place] [address] documented as of this encounter Visit Diagnoses Not on filedocumented in this encounter Care Teams Comsec Manager Relationship Specialty Start Date End Date Martina Strickland PA-C PCP - General Physician Luster Applicator 07/19/19 Ailin Decker MD Internal Medicine 07/28/11 Amadeo King MD [address] [place] [address] 493 [place], [place] 603085 Ophthalmology 12/22/19 Joseph Trivedi MD [facility] [address] [facility] 215 [place], [place] [address] Rheumatology 05/21/20 Rene Grant MD [address] [place] [address] [phone] Assigned Surgical Provider 09/12/22 02/28/25 Manju Perkins, JENNIFER Registered Nurse 05/24/24 Martine Rios MD [address] [place] [address] [phone] Assigned Nephrology Provider 07/02/24 Gifty Durham RN [place] [facility], [address] Registered Nurse Transplant 10/27/24 02/27/25 Emma Deshpande MD [address] [place] [address] [phone] Ophthalmology 12/05/24 Emma Deshpande MD [address] [place] [address] [phone] Assigned Surgical Provider 03/01/25 documented as of this encounter
--- OUTSIDE RECORDS SUMMARY | 2025-03-16 17:29 | XMS_ITS | Encounter Summary ---
Author Organization [facility] Address [address] [place] [address]. [place] [address] Care Team Providers Care Transit Mixer Operator Name Role Phone Ailin Decker MD Unavailable Martina Strickland PA-C Primary Care Provider Amadeo King MD Unavailable [phone] Joseph Trivedi MD Unavailable [phone] Rene Grant MD Unavailable [phone] Manju Perkins RN Unavailable Unavaila Martine Sr MD Unavailable [phone] Gifty Durham RN Unavailable Unavailable Emma Deshpande MD Unavailable [phone] Emma Deshpande MD Unavailable + [phone] Encounter Details Date Type Department Care Team (Late st Contact Info) Description 05/17/2024 [facility] Medical [facility] Eye [address] 9[facility] Clin 9A [place] [address] Roseline Zamora Social History Tobacco Use Types [...] AM CDT 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:59 AM HOUSEKEEPING ATTENDANT Gender Identity Female 2019 10:10 AM CDT Sexual Orientation Straight 2019 10 :10 AM CDT documented as of this encounter Plan of Treatment Upcoming Encounters Date Type Department Care Team (Late st Contact Info) Description 03/19/2025 3:00 PM HOUSEKEEPING ATTENDANT Office Visit [facility] Eye [facility] 516 [facility] [address] [facility] 9A [place] [address] Amadeo King MD 420 [facility] 493 [place] [address] 03/29/2025 7:45 AM HOUSEKEEPING ATTENDANT Lab [facility] Laboratory [address] [place] [address] 05/15/2025 3:00 PM HOUSEKEEPING ATTENDANT Office [facility] 516 [facility] [address] [facility] 9A [place] [address] Emma Deshpande MD 6 [facility] 911 [place] [address] documented as of this encounter Visit Diagnoses Not on filedocumented in this encounter Additional Health Concerns Infection Onset Date Last Indicated Resolved Time Rule Out C-difficile 07/11/2024 07/11/2024 025 11:41 PM HOUSEKEEPING ATTENDANT documented as of this encounter Care Teams Transit Mixer Operator Relationship Specialty Start Date End Date Martina Strickland PA-C PCP - General Physician Talcer 07/19/19 Ailin Decker MD Internal Medicine 07/28/11 Amadeo King MD 420 [facility] 493 [place], [place] [address] Ophthalmology 12/22/19 Joseph Trivedi MD [facility] [address] [facility] 215 [place], [place] [address] Rheumatology 05/21/20 Rene Grant MD [address] [place] [address] [phone] Assigned Surgical Provider 09/12/22 02/28/25 Manju Perkins, JENNIFER Registered Nurse 05/24/24 Martine Rios MD [address] [place] [address] [phone] Assigned Nephrology Provider 07/02/24 Gifty Durham RN [place] [facility], [address] Registered Nurse Transplant 10/27/24 02/27/25 Emma Deshpande MD [address] [place] [address] [phone] Ophthalmology 12/05/24 Emma Deshpande MD [address] [place] [address] Assigned Surgical Provider 03/01/25 documented as of this encounter
--- OUTSIDE RECORDS SUMMARY | 2025-03-16 17:29 | XMS_ITS | Encounter Summary ---
Author Organization [facility] Address [address] [place] [address] Care Team Providers Care Continuous Improvement Engineer Name Role Phone Ailin Decker MD Unavailable Martina Strickland PA-C Primary Care Provider Amadeo King MD Unavailable [phone] Joseph Trivedi MD Unavailable [phone] Rene Grant MD Unavailable [phone] Manju Perkins RN Unavailable Unavaila Martine Sr MD Unavailable [phone] Gifty Durham RN Unavailable Unavailable Emma Deshpande MD Unavailable +[phone] Emma Deshpande MD Unavailable + [phone] Encounter Details Date Type Department Care Team (Late st Contact Info) Description 07/03/2024 [facility] Medical Advice [facility] Trans[facility] Clinic 9 [place] [address] Manju Perkins, RN Social History [...] AM CDT 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:59 AM CUSTOMER SOLUTIONS SUPERVISOR Gender Identity Female 2019 10:10 AM CDT Sexual Orientation Straight 2019 10 :10 AM CDT documented as of this encounter Plan of Treatment Upcoming Encounters Date Type Department Care Team (Late st Contact Info) Description 03/19/2025 3:00 PM CUSTOMER SOLUTIONS SUPERVISOR Office Visit [facility] - [address] [address] Amadeo King MD [address] [place] [address] 03/29/2025 7:45 AM CUSTOMER SOLUTIONS SUPERVISOR Lab [facility] Laboratory [address] [place] [address] 05/15/2025 3:00 PM CUSTOMER SOLUTIONS SUPERVISOR Office Visit [facility] Eye [facility] - [address] [address] Emma Deshpande MD [address] [place] [address] 911 [place] [address] documented as of this encounter Visit Diagnoses Not on filedocumented in this encounter Additional Health Concerns Infection Onset Date Last Indicated Resolved Time Rule Out C-difficile 07/11/2024 07/11/2024 025 11:41 PM CUSTOMER SOLUTIONS SUPERVISOR documented as of this encounter Care Teams Continuous Improvement Engineer Relationship Specialty Start Date End Date Martina Strickland PA-C PCP - General Physician Salon Designer 07/19/19 Ailin Decker MD Internal Medicine 07/28/11 Amadeo King MD [address] [place] [address] 493 [place], [place] 734715 Ophthalmology 12/22/19 Joseph Trivedi MD [facility] [address] 4787[address] Rheumatology 05/21/20 Rene Grant MD [address] [place] [address] [phone] Assigned Surgical Provider 09/12/22 02/28/25 Manju Perkins RN Registered Nurse 05/24/24 Martine Rios MD [address] [place] [address] [phone] Assigned Nephrology Provider 07/02/24 Gifty Durham RN [place] [facility], [address] Registered Nurse Transplant 10/27/24 02/27/25 Emma Deshpande MD [address] [place] [address] [phone] Ophthalmology 12/05/24 Emma Deshpande MD [address] [place] [address] 512655 Assigned Surgical Provider 03/01/25 documented as of this encounter
--- OUTSIDE RECORDS SUMMARY | 2025-03-16 17:29 | XMS_ITS | Encounter Summary ---
Author Organization [facility] Address [address] [place] [address] Care Team Providers Care Certified Diabetes Educator Name Role Phone Ailin Decker MD Unavailable Martina Strickland PA-C Primary Care Provider Amadeo King MD Unavailable [phone] Joseph Trivedi MD Unavailable [phone] Rene Grant MD Unavailable [phone] Manju Perkins RN Unavailable Unavaila Martine Sr MD Unavailable [phone] Gifty Durham RN Unavailable Unavailable Emma Deshpande MD Unavailable +[phone] Emma Deshpande MD Unavailable + [phone] Encounter Details Date Type Department Care Team (Late st Contact Info) Description 06/05/2024 Orders Only [facility] [address] [place] [address] Outside, Provider Social History Tobacco Use Types [...] AM CDT 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:59 AM ASSISTANT TERMINAL MANAGER Gender Identity Female 2019 10:10 AM CDT Sexual Orientation Straight 2019 10 :10 AM CDT documented as of this encounter Plan of Treatment Upcoming Encounters Date Type Department Care Team (Late st Contact Info) Description 03/19/2025 3:00 PM ASSISTANT TERMINAL MANAGER Office Visit [facility] 9A [place] [address] Amadeo King MD 420 [facility] 493 [place] [address] 03/29/2025 7:45 AM ASSISTANT TERMINAL MANAGER Lab [facility] [address] [place] [address] 05/15/2025 3:00 PM ASSISTANT TERMINAL MANAGER Office Visit [place] [id number] [facility] 9A [place] [address] Emma Deshpande MD 516 [facility] 911 [place] [address] documented as of this encounter Procedures Procedure Name Priority Date/Time Associated Diagnosis Comments HLA RESULT REPORT 06/05/2024 11:54 AM ASSISTANT TERMINAL MANAGER EKG CARDIAC - HIM SCAN 06/05/2024 12:00 AM ASSISTANT TERMINAL MANAGER documented in this encounter Results * HLA Result Report (06/05/2024 11:54 AM ASSISTANT TERMINAL MANAGER) Provider Outside LAB - IMMUNOLOGY ORDERABLES Fin al Result * EKG Cardiac - HIM Scan (06/05/2024 12:00 AM ASSISTANT TERMINAL MANAGER) 06/05/2024 us Provider Outside ECG ORDERABLES Final Result documented in this encounter Visit Diagnoses Not on filedocumented in this encounter Additional Health Concerns Infection Onset Date Last Indicated Resolved Time Rule Out C-difficile 07/11/2024 07/11/2024 025 11:41 PM ASSISTANT TERMINAL MANAGER documented as of this encounter Care Teams Certified Diabetes Educator Relationship Specialty Start Date End Date Martina Strickland PA-C PCP - General Physician Heatset Winder Operator 07/19/19 Ailin Decker MD Internal Medicine 07/28/11 Amadeo King MD 420 [facility] 493 [place] [address] Ophthalmology 12/22/19 Joseph Trivedi MD [facility] [address] [facility] 215 [place] [address] Rheumatology 05/21/20 Rene Grant MD [address] [place] [address] Assigned Surgical Provider 09/12/22 02/28/25 Manju Perkins RN Registered Nurse 05/24/24 Martine Rios MD [address] [place] [address] Assigned Nephrology Provider 07/02/24 Gifty Durham RN [facility], [address] Registered Nurse Transplant 10/27/24 02/27/25 Emma Deshpande MD [address] [place] [address] 911 [place], [place] [phone] Ophthalmology 12/05/24 Emma Deshpande MD [address] [address] Assigned Surgical Provider 03/01/25 documented as of this encounter
--- OUTSIDE RECORDS SUMMARY | 2025-03-16 17:29 | XMS_ITS | Encounter Summary ---
Author Organization [facility] Address [address] [place] [address] Care Team Providers Care Aircraft Sheet Metal Mechanic Name Role Phone Ailin Decker MD Unavailable Martina Strickland PA-C Primary Care Provider Amadeo King MD Unavailable [phone] Amadeo King MD Unavailable [phone] Joseph Trivedi MD Unavailable [phone] [facility] [phone] Amadeo Winston MD Unavailable [phone] Amadeo Winston MD Unavailable [phone] [facility] Unavailable +[phone] Rene Grant MD Unavailable +[phone] Manju Perkins RN Unavailable Unavaila Martine Sr MD Unavailable +[phone] Gifty Durham RN Unavailable Unavailable Emma Deshpande MD Unavailable +[phone] Emma Deshpande MD Unavailable [phone] Reason for Visit * Reason Onset Date Comments Refill Request 06/22/2022 prednisoLONE dick benitez (PRED FORTE) 1 % ophthalmic suspension Encounter Details Date Type Department Care Team (Late st Contact Info) Description 06/22/2022 [facility] Eye [facility] 516 [facility] 9th Fl Clin 9A [place] [address] Rene Grant MD [address] [place] [address] Refill Request (prednisoLONE acetate (PRED FORTE) 1 [...] AM CDT 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:59 AM NEW VEHICLE SALES CONSULTANT Gender Identity Female 2019 10:10 AM CDT Sexual Orientation Straight 2019 10 :10 AM CDT COVID-19 Exposure Response Date Recorded In the last 10 days, have yo u been in contact with someone who was confirmed or suspected to have Coronavirus/COVID-19? No / Unsure 06/03/2022 2:32 PM NEW VEHICLE SALES CONSULTANT documented as of this encounter [...] to arrive. requests 10 ml 0 rfs. VEHICLE SALES CONSULTANT VEHICLE SALES CONSULTANT * Telephone Encounter - Ashley Paula - 06/22/2022 1:03 PM [facility] Phone Message May a detailed message be left on voicemail: yes Reason for Call: Medication Refill Request Has the patient contacted the pharmacy for the refill? Yes Name of medication being requested: prednisoLONE acetate (PRED FORTE) 1 % ophthalmic suspension Provider who prescribed the medication: Dr. Grant Pharmacy: [facility] Date medication is needed: JOSE MANUEL Patient called stating she will not have this medication until the from her mail order pharmacy and she is out. She is asking for an emergency refill. Action Taken: Other: eye Travel Screening: Not Applicable VEHICLE SALES CONSULTANT documented in this encounter Plan of Treatment Upcoming Encounters Date Type Department Care Team (Late st Contact Info) Description 03/19/2025 3:00 PM NEW VEHICLE SALES CONSULTANT Office Visit [facility] [place] 244856 [facility] [address] [address] Amadeo King MD 420 [facility] 493 [place] [address] 03/29/2025 7:45 AM NEW VEHICLE SALES CONSULTANT Lab 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 documented in this encounter Additional Health Concerns Infection Onset Date Last Indicated Resolved Time Rule Out C-difficile 07/11/2024 07/11/2024 025 11:41 PM NEW VEHICLE SALES CONSULTANT documented as of this encounter Care Teams Aircraft Sheet Metal Mechanic Relationship Specialty Start Date End Date Martina Strickland PA-C PCP - General Physician Winding Department Supervisor 07/19/19 Ailin Decker MD Internal Medicine 07/28/11 Amadeo King MD [address] [place] [address] [id number] Ophthalmology 12/22/19 Amadeo King MD [address] [place] [address] [phone] Assigned PCP 04/07/20 06/02/23 Joseph Trivedi MD [facility] [address] 876685 Rheumatology 05/21/20 Rene Grant MD [address] [place] [address] 258675 Assigned Surgical Provider 04/04/22 08/21/22 Amadeo Winston MD [address] [place] [address] 961825 Assigned Surgical Provider 08/22/22 08/28/22 Amadeo Winston MD [address] [place] [address] 861305 Assigned Surgical Provider 09/05/22 09/11/22 Rene Grant MD [address] [place] [address] 174515 Assigned Surgical Provider 08/29/22 09/04/22 Rene Grant MD [address] [place] [address] 064085 Assigned Surgical Provider 09/12/22 02/28/25 Manju Perkins, JENNIFER Registered Nurse 05/24/24 Martine Rios MD [address] [place] [address] [phone] Assigned Nephrology Provider 07/02/24 Gifty Durham RN [place] [facility], [address] Registered Nurse Transplant 10/27/24 02/27/25 Emma Deshpande MD [address] [place] [address] [id number] MD [place] 12/05/24 Emma Deshpande MD [address] [place] [address] [phone] Assigned Surgical Provider 03/01/25 documented as of this encounter
--- OUTSIDE RECORDS SUMMARY | 2025-03-16 17:29 | XMS_ITS | Encounter Summary ---
Author Organization [facility] Address [address] [place] [address]. [place] [address] Care Team Providers Care Electro Optics Engineer Name Role Phone Ailin Decker MD Unavailable Martina Strickland PA-C Primary Care Provider Amadeo King MD Unavailable [phone] Joseph Trivedi MD Unavailable [phone] Rene Grant MD Unavailable [phone] Manju Perkins RN Unavailable Unavaila Martine Sr MD Unavailable +[phone] Gifty Durham RN Unavailable Unavailable Emma Deshpande MD Unavailable +[phone] Emma Deshpande MD Unavailable + [phone] Encounter Details Date Type Department Care Team (Late st Contact Info) Description 05/16/2024 [facility] Medical Advice [facility] [address] 9[facility] 9A [place] [address] Marito Howard Social History Tobacco Use Types [...] AM CDT 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:59 AM PLAYGROUND MONITOR Gender Identity Female 2019 10:10 AM CDT Sexual Orientation Straight 2019 10 :10 AM CDT documented as of this encounter Plan of Treatment Upcoming Encounters Date Type Department Care Team (Late st Contact Info) Description 03/19/2025 3:00 PM PLAYGROUND MONITOR Office Visit [facility] 516 [facility] 9th Hi Clin 9A [place] [address] Amadeo King MD 420 [facility] 493 [place] [address] 03/29/2025 7:45 AM PLAYGROUND MONITOR Lab [facility] [address] [place] [address] 05/15/2025 3:00 PM PLAYGROUND MONITOR Office Visit [facility] [address] [facility] 9th [facility] 9A [place] [address] Emma Deshpande MD 6 [facility] 911 [place] [address] documented as of this encounter Visit Diagnoses Not on filedocumented in this encounter Additional Health Concerns Infection Onset Date Last Indicated Resolved Time Rule Out C-difficile 07/11/2024 07/11/2024 025 11:41 PM PLAYGROUND MONITOR documented as of this encounter Care Teams Electro Optics Engineer Relationship Specialty Start Date End Date Martina Strickland PA-C PCP - General Physician Maintenance Mechanic 07/19/19 Ailin Decker MD Internal Medicine 07/28/11 Amadeo King MD 420 [facility] 493 [place], [place] 188315 Ophthalmology 12/22/19 Joseph Trivedi MD [facility] [address] [facility] 215 [place], [place] 801415 Rheumatology 05/21/20 Rene Grant MD [address] [place] [address] [phone] Assigned Surgical Provider 09/12/22 02/28/25 Manju Perkins, JENNIFER Registered Nurse 05/24/24 Martine Rios MD [address] [place] [address] [phone] Assigned Nephrology Provider 07/02/24 Gifty Durham RN [place] [facility], [address] Registered Nurse Transplant 10/27/24 02/27/25 Emma Deshpande MD [address] [place], [place] 787[address] [place] [address] Ophthalmology 12/05/24 Emma Deshpande MD [address] [place] [address] Assigned Surgical Provider 03/01/25 documented as of this encounter
--- OUTSIDE RECORDS SUMMARY | 2025-03-16 17:29 | XMS_ITS | Encounter Summary ---
Author Organization [facility] Address [address] [place] [address] Care Team Providers Care Broom Handle Dipper Name Role Phone Ailin Decker MD Unavailable Martina Srtickland PA-C Primary Care Provider Amadeo King MD Unavailable [phone] Joseph Trivedi MD Unavailable [phone] Rene Grant MD Unavailable [phone] Manju Perkins RN Unavailable Unavaila [place] Sr MD Unavailable [phone] Gifty Durham RN Unavailable Unavailable Emma Deshpande MD Unavailable [phone] Emma Deshpande MD Unavailable + [phone] Encounter Details Date Type Department Care Team (Late st Contact Info) Description 06/09/2024 MyC Medical Advice Initial Department 2450 [place] [address] Manju Perkins, RN Social History Tobacco Use [...] AM CDT 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:59 AM FOURDRINIER MACHINE OPERATOR Gender Identity Female 2019 10:10 AM CDT Sexual Orientation Straight 2019 10 :10 AM CDT documented as of this encounter Plan of Treatment Upcoming Encounters Date Type Department Care Team (Late st Contact Info) Description 03/19/2025 3:00 PM FOURDRINIER MACHINE OPERATOR Office Visit [address] 9[facility] 9A [place] [address] Amadeo King MD 420 [facility] 493 [place] [address] 03/29/2025 7:45 AM FOURDRINIER MACHINE OPERATOR Lab [facility] [address] [place] [address] 05/15/2025 3:00 PM FOURDRINIER MACHINE OPERATOR Office Visit [address] 9[facility] 9A [place] [address] Emma Deshpande MD [address] [place], [place] [address] [place] [address] documented as of this encounter Visit Diagnoses Not on filedocumented in this encounter Additional Health Concerns Infection Onset Date Last Indicated Resolved Time Rule Out C-difficile 07/11/2024 07/11/2024 025 11:41 PM FOURDRINIER MACHINE OPERATOR documented as of this encounter Care Teams Broom Handle Dipper Relationship Specialty Start Date End Date Martina Strickland PA-C PCP - General Physician Food Safety Technician 07/19/19 Ailin Decker MD Internal Medicine 07/28/11 Amadeo King MD 420 [facility] 493 [place] [address] Ophthalmology 12/22/19 Joseph Trivedi MD [facility] [address] [facility] 215 [place], [place] 5743[address] Rheumatology 05/21/20 Rene Grant MD [address] [place] [address] [phone] Assigned Surgical Provider 09/12/22 02/28/25 Manju Perkins, JENNIFER Registered Nurse 05/24/24 Martine Rios MD [address] [place] [address] 883015 Assigned Nephrology Provider 07/02/24 Gifty Durham RN [place] [facility], [address] Registered Nurse Transplant 10/27/24 02/27/25 Emma Deshpande MD [address] [place] [address] 576485 Ophthalmology 12/05/24 Emma Deshpande MD [address] [place] [address] 604075 Assigned Surgical Provider 03/01/25 documented as of this encounter
--- OUTSIDE RECORDS SUMMARY | 2025-03-16 17:29 | XMS_ITS | Encounter Summary ---
Author Organization [facility] Address [address] [place] [address] Care Team Providers Care Ranch Rider Name Role Phone Ailin Decker MD Unavailable Martina Strickland PA-C Primary Care Provider Amadeo King MD Unavailable [phone] Joseph Trivedi MD Unavailable [phone] Rene Grant MD Unavailable [phone] Manju Perkins RN Unavailable Unavaila [place] Sr MD Unavailable [phone] Gifty Durham RN Unavailable Unavailable Emma Deshpande MD Unavailable +[phone] Emma Deshpande MD Unavailable + [phone] Encounter Details Date Type Department Care Team (Late st Contact Info) Description 06/22/2024 [facility] 9 [place] [address] Manju Perkins, RN Social History [...] AM CDT 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:59 AM NUTRITION SERVICES MANAGER Gender Identity Female 2019 10:10 AM CDT Sexual Orientation Straight 2019 10 :10 AM CDT documented as of this encounter Plan of Treatment Upcoming Encounters Date Type Department Care Team (Late st Contact Info) Description 03/19/2025 3:00 PM NUTRITION SERVICES MANAGER Office Visit [facility] 516 [facility] 9th Ga Clin 9A [place] [address] Amadeo King MD 420 [facility] 493 [place] [address] 03/29/2025 7:45 AM NUTRITION SERVICES MANAGER Lab [facility] Laboratory [address] [place] [address] 05/15/2025 3:00 PM NUTRITION SERVICES MANAGER Office Visit [facility] 516 [facility] 9A [place] [address] Emma Deshpande MD 6 [facility] 911 [place] [address] documented as of this encounter Visit Diagnoses Not on filedocumented in this encounter Additional Health Concerns Infection Onset Date Last Indicated Resolved Time Rule Out C-difficile 07/11/2024 07/11/2024 025 11:41 PM NUTRITION SERVICES MANAGER documented as of this encounter Care Teams Ranch Rider Relationship Specialty Start Date End Date Martina Strickland PA-C PCP - General Physician Core Driller 07/19/19 Ailin Decker MD Internal Medicine 07/28/11 Amadeo King MD 420 [facility] 493 [place], [place] 158905 Ophthalmology 12/22/19 Joseph Trivedi MD [facility] [address] [facility] 215 [place], [place] [address] Rheumatology 05/21/20 Rene Grant MD [address] [place] [address] 065895 Assigned Surgical Provider 09/12/22 02/28/25 Manju Perkins, JENNIFER Registered Nurse 05/24/24 Martine Rios MD [address] [place] [address] 673045 Assigned Nephrology Provider 07/02/24 Gifty Durham RN [place] [facility], [address] Registered Nurse Transplant 10/27/24 02/27/25 Emma Deshpande MD [address] [place] [address] Ophthalmology 12/05/24 Emma Deshpande MD [address] [place] [address] Assigned Surgical Provider 03/01/25 documented as of this encounter
--- OUTSIDE RECORDS SUMMARY | 2025-03-16 17:29 | XMS_ITS | Encounter Summary ---
Author Organization [facility] Address [address] [place] [address] Care Team Providers Care Timber Rider Name Role Phone Ailin Decker MD Unavailable Martina Strickland PA-C Primary Care Provider Amadeo King MD Unavailable [phone] Joseph Trivedi MD Unavailable [phone] Rene Grant MD Unavailable [phone] Manju Perkins RN Unavailable Unavaila [place] Sr MD Unavailable +[phone] Gifty Durham RN Unavailable Unavailable Emma Deshpande MD Unavailable [phone] Emma Deshpande MD Unavailable + [phone] Encounter Details Date Type Department Care Team (Late st Contact Info) Description 06/28/2024 [facility] [place] [facility] 9 [place] [address] Manju Perkins, RN Social History [...] AM CDT 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:59 AM FLYER BUILDER Gender Identity Female 2019 10:10 AM CDT Sexual Orientation Straight 2019 10 :10 AM CDT documented as of this encounter Plan of Treatment Upcoming Encounters Date Type Department Care Team (Late st Contact Info) Description 03/19/2025 3:00 PM FLYER BUILDER Office Visit [facility] Eye [facility] 516 [facility] 9th Nm Clin 9A [place] [address] Amadeo King MD 420 [facility] 493 [place] [address] 03/29/2025 7:45 AM FLYER BUILDER Lab [facility] [address] [place] [address] 05/15/2025 3:00 PM FLYER BUILDER Office Visit [facility] 516 [facility] 9th [facility] 9[address] [place] [address] Emma Deshpande MD 6 [facility] 911 [place] [address] documented as of this encounter Visit Diagnoses Not on filedocumented in this encounter Additional Health Concerns Infection Onset Date Last Indicated Resolved Time Rule Out C-difficile 07/11/2024 07/11/2024 025 11:41 PM FLYER BUILDER documented as of this encounter Care Teams Timber Rider Relationship Specialty Start Date End Date Martina Strickland PA-C PCP - General Physician Storekeeper Steward 07/19/19 Ailin Decker MD Internal Medicine 07/28/11 Amadeo King MD 420 [facility] 493 [place], [place] 326815 Ophthalmology 12/22/19 Joseph Trivedi MD [facility] [address] [facility] 215 [place], [place] [address] Rheumatology 05/21/20 Rene Grant MD [address] [place] [address] [phone] Assigned Surgical Provider 09/12/22 02/28/25 Manju Perkins, JENNIFER Registered Nurse 05/24/24 Martine Rios MD [address] [place] [address] 654875 Assigned Nephrology Provider 07/02/24 Gifty Durham RN [place] [facility], [address] Registered Nurse Transplant 10/27/24 02/27/25 Emma Deshpande MD [address] [place] [address] Ophthalmology 12/05/24 Emma Deshpande MD [address] [place] [address] Assigned Surgical Provider 03/01/25 documented as of this encounter
--- OUTSIDE RECORDS SUMMARY | 2025-03-16 17:29 | XMS_ITS | Encounter Summary ---
Author Organization [facility] Address [address] [place] [address] Care Team Providers Care Row Boss Name Role Phone Ailin Decker MD Unavailable Martina Strickland PA-C Primary Care Provider Amadeo King MD Unavailable [phone] Joseph Trivedi MD Unavailable [phone] Rene Grant MD Unavailable [phone] Manju Perkins RN Unavailable Unavaila Mart[place] Sr MD Unavailable +[phone] Gifty Durham RN Unavailable Unavailable Emma Deshpande MD Unavailable [phone] Emma Deshpande MD Unavailable + [phone] Encounter Details Date Type Department Care Team (Late st Contact Info) Description 09/06/2024 [facility] [place] [facility] 9 [place] [address] Manju Perkins, RN Social History [...] CDT 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:59 AM SOCIAL MEDIA MARKETING MANAGER Gender Identity Female 2019 10:10 AM CDT Sexual Orientation Straight 2019 10 :10 AM CDT documented as of this encounter Plan of Treatment Upcoming Encounters Date Type Department Care Team (Late st Contact Info) Description 03/19/2025 3:00 PM SOCIAL MEDIA MARKETING MANAGER Office Visit [facility] - [address] [address] Amadeo King MD [address] [place] [address] 03/29/2025 7:45 AM SOCIAL MEDIA MARKETING MANAGER Lab [facility] [address] [place] [address] 05/15/2025 3:00 PM SOCIAL MEDIA MARKETING MANAGER Office Visit [facility] - [address] [address] Emma Deshpande MD [address] [place] [address] 911 [place] [address] documented as of this encounter Visit Diagnoses Not on filedocumented in this encounter Care Teams Row Boss Relationship Specialty Start Date End Date Martina Strickland PA-C PCP - General Physician Sales Service Promoter 07/19/19 Ailin Decker MD Internal Medicine 07/28/11 Amadeo King MD [address] [place] [address] 493 [place] [address] Ophthalmology 12/22/19 Joseph Trivedi MD [facility] [address] [facility] 215 [place], [place] 8730[address] Rheumatology 05/21/20 Rene Grant MD [address] [place] [address] [phone] Assigned Surgical Provider 09/12/22 02/28/25 Manju Perkins, JENNIFER Registered Nurse 05/24/24 Martine Rios MD [address] [place] [address] [phone] Assigned Nephrology Provider 07/02/24 Gifty Durham RN [facility] [place] [facility], [address] Registered Nurse Transplant 10/27/24 02/27/25 Emma Deshpande MD [address] [place] [address] [phone] Ophthalmology 12/05/24 Emma Deshpande MD [address] [place] [address] 210555 Assigned Surgical Provider 03/01/25 documented as of this encounter
--- OUTSIDE RECORDS SUMMARY | 2025-03-16 17:29 | XMS_ITS | Encounter Summary ---
Author Organization [facility] Address [address] [place] [address] Care Team Providers Care Rn Chronic Name Role Phone Ailin Decker MD Unavailable Martina Strickland PA-C Primary Care Provider Amadeo King MD Unavailable [phone] Joseph Trivedi MD Unavailable [phone] Rene Grant MD Unavailable [phone] Manju Perkins RN Unavailable Unavaila Martine Sr MD Unavailable [phone] Gifty Durham RN Unavailable Unavailable Emma Deshpande MD Unavailable [phone] Emma Deshpande MD Unavailable + [phone] Encounter Details Date Type Department Care Team (Late st Contact Info) Description 09/12/2024 [facility] Medical Advice Initial Department [address] [place] [address] Manju Perkins, RN Social History Tobacco Use [...] AM CDT 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:59 AM TAKER AWAY Gender Identity Female 2019 10:10 AM CDT Sexual Orientation Straight 2019 10 :10 AM CDT documented as of this encounter Plan of Treatment Upcoming Encounters Date Type Department Care Team (Late st Contact Info) Description 03/19/2025 3:00 PM TAKER AWAY Office Visit [address] [phone] Amadeo King MD [address] [place] [address] 03/29/2025 7:45 AM TAKER AWAY Lab [facility] [address] [place] [address] 05/15/2025 3:00 PM TAKER AWAY Office Visit [address] [address] Emma Deshpande MD [address] [place] [address] 911 [place] [address] documented as of this encounter Visit Diagnoses Not on filedocumented in this encounter Care Teams Rn Chronic Relationship Specialty Start Date End Date Martina Strickland PA-C PCP - General Physician Strapper Operator 07/19/19 Ailin Decker MD Internal Medicine 07/28/11 Amadeo King MD [address] [place] [address] [address] [place], [place] [address] Ophthalmology 12/22/19 Joseph Trivedi MD [facility] [address] [facility] [address] [place], [place] [address] Rheumatology 05/21/20 Rene Grant MD [address] [place] [address] 528645 Assigned Surgical Provider 09/12/22 02/28/25 Manju Perkins, JENNIFER Registered Nurse 05/24/24 Martine Rios MD [address] [place] [address] 060635 Assigned Nephrology Provider 07/02/24 Gifty Durham RN [facility], [address] Registered Nurse Transplant 10/27/24 02/27/25 Emma Deshpande MD [address] [place] [address] [phone] Ophthalmology 12/05/24 Emma Deshpande MD [address] [place] [address] [phone] Assigned Surgical Provider 03/01/25 documented as of this encounter
--- OUTSIDE RECORDS SUMMARY | 2025-03-16 17:29 | XMS_ITS | Encounter Summary ---
Author Organization [place] Address [address] [place] [address] Care Team Providers Care Coat Presser Name Role Phone Ailin Decker MD Unavailable Martina Strickland PA-C Primary Care Provider Amadeo King MD Unavailable [phone] Joseph Trivedi MD Unavailable [phone] Rene Grant MD Unavailable [phone] Manju Perkins RN Unavailable Unavaila Martine Sr MD Unavailable [phone] Gifty Durham RN Unavailable Unavailable Emma Deshpande MD Unavailable +[phone] Emma Deshpande MD Unavailable + [phone] Encounter Details Date Type Department Care Team (Late st Contact Info) Description 07/27/2024 [facility] Medical Advice [facility] [address] [place] [address] Manju Perkins, RN Social History [...] AM CDT 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:59 AM MAILROOM ASSISTANT Gender Identity Female 2019 10:10 AM CDT Sexual Orientation Straight 2019 10 :10 AM CDT documented as of this encounter Plan of Treatment Upcoming Encounters Date Type Department Care Team (Late st Contact Info) Description 03/19/2025 3:00 PM MAILROOM ASSISTANT Office Visit [facility] [address] [address] Amadeo King MD [address] [place] [address] 03/29/2025 7:45 AM MAILROOM ASSISTANT Lab [facility] [address] [place] [address] 05/15/2025 3:00 PM MAILROOM ASSISTANT Office Visit [facility] - [address] [address] Emma Deshpande MD [address] [place] [address] [address] [place] [address] documented as of this encounter Visit Diagnoses Not on filedocumented in this encounter Care Teams Coat Presser Relationship Specialty Start Date End Date Martina Strickland PA-C PCP - General Physician Telephone Appointment Clerk 07/19/19 Ailin Decker MD Internal Medicine 07/28/11 Amadeo King MD [address] [place] [address] 493 [place] [address] Ophthalmology 12/22/19 Joseph Trivedi MD [facility] [address] [facility] 215 [place], [place] [address] Rheumatology 05/21/20 Rene Grant MD [address] [place] [address] [phone] Assigned Surgical Provider 09/12/22 02/28/25 Manju Perkins, JENNIFER Registered Nurse 05/24/24 Martine Rios MD [address] [place] [address] [phone] Assigned Nephrology Provider 07/02/24 Gifty Durham RN [facility], [address] Registered Nurse Transplant 10/27/24 02/27/25 Emma Deshpande MD [address] [place] [address] 478235 Ophthalmology 12/05/24 Emma Deshpande MD [address] [place] [address] 209295 Assigned Surgical Provider 03/01/25 documented as of this encounter
--- OUTSIDE RECORDS SUMMARY | 2025-03-16 17:29 | XMS_ITS | Encounter Summary ---
Author Organization [facility] Address [address] [place] [address] Care Team Providers Care Roving Or Yarn Color Checker Name Role Phone Ailin Decker MD Unavailable Martina Strickland PA-C Primary Care Provider Amadeo King MD Unavailable [phone] Joseph Trivedi MD Unavailable [phone] Rene Grant MD Unavailable [phone] Manju Perkins RN Unavailable Unavaila Martine Sr MD Unavailable [phone] Gifty Durham RN Unavailable Unavailable Emma Deshpande MD Unavailable [phone] Emma Deshpande MD Unavailable + [phone] Encounter Details Date Type Department Care Team (Late st Contact Info) Description 08/07/2024 [facility] Medical Advice [facility] [address] [place] [address] Manju Perkins, RN Social History [...] AM CDT 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:59 AM INSURANCE BILLING SPECIALIST Gender Identity Female 2019 10:10 AM CDT Sexual Orientation Straight 2019 10 :10 AM CDT documented as of this encounter Plan of Treatment Upcoming Encounters Date Type Department Care Team (Late st Contact Info) Description 03/19/2025 3:00 PM INSURANCE BILLING SPECIALIST Office Visit [facility] - [address] [phone] Amadeo King MD [address] [place] [address] 03/29/2025 7:45 AM INSURANCE BILLING SPECIALIST Lab [facility] [address] [place] [phone] 05/15/2025 3:00 PM INSURANCE BILLING SPECIALIST Office Visit [facility] - [address] [address] Emma Deshpande MD [address] [place] [address] [address] [place] [address] documented as of this encounter Visit Diagnoses Not on filedocumented in this encounter Care Teams Roving Or Yarn Color Checker Relationship Specialty Start Date End Date Martina Strickland PA-C PCP - General Physician Parts Remover 07/19/19 Ailin Decker MD Internal Medicine 07/28/11 Amadeo King MD [address] [place] [address] 493 [place] [address] Ophthalmology 12/22/19 Joseph Trivedi MD [facility] [address] [facility] 215 [place], [place] [phone] Rheumatology 05/21/20 Rene Grant MD [address] [place] [address] [phone] Assigned Surgical Provider 09/12/22 02/28/25 Manju Perkins, JENNIFER Registered Nurse 05/24/24 Martine Rios MD [address] [place] [address] [phone] Assigned Nephrology Provider 07/02/24 Gifty Durham RN [facility], [address] Registered Nurse Transplant 10/27/24 02/27/25 Emma Deshpande MD [address] [place] [phone] Ophthalmology 12/05/24 Emma Deshpande MD [address] [place] [address] 345195 Assigned Surgical Provider 03/01/25 documented as of this encounter
--- OUTSIDE RECORDS SUMMARY | 2025-03-16 17:29 | XMS_ITS | Encounter Summary ---
Author Organization [facility] Address [address] [place] [address] Care Team Providers Care Insurance Risk Surveyor Name Role Phone Ailin Decker MD Unavailable Martina Strickland PA-C Primary Care Provider Amadeo King MD Unavailable [phone] Joseph Trivedi MD Unavailable [phone] Rene Grant MD Unavailable [phone] Manju Perkins RN Unavailable Unavaila Martine Sr MD Unavailable [phone] Gifty Durham RN Unavailable Unavailable Emma Deshpande MD Unavailable +[phone] Emma Deshpande MD Unavailable + [phone] Encounter Details Date Type Department Care Team (Late st Contact Info) Description 06/28/2024 [facility] [place] [address] 5[address] [place] [address] Lesa Guzman, RN Social History Tobacco Use Types Packs/Day [...] AM CDT 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:59 AM SODA COLUMN OPERATOR Gender Identity Female 2019 10:10 AM CDT Sexual Orientation Straight 2019 10 :10 AM CDT documented as of this encounter Plan of Treatment Upcoming Encounters Date Type Department Care Team (Late st Contact Info) Description 03/19/2025 3:00 PM SODA COLUMN OPERATOR Office Visit [facility] [address] [facility] 9th [facility] [address] [place] [address] Amadeo King MD [address] [facility] 493 [place] [address] 03/29/2025 7:45 AM SODA COLUMN OPERATOR Lab [facility] Laboratory [address] [place] [address] 05/15/2025 3:00 PM SODA COLUMN OPERATOR Office Visit [facility] [address] [facility] 9th [facility] [address] [place] [address] Emma Deshpande MD [address] [facility] 911 [place] [address] documented as of this encounter Visit Diagnoses Not on filedocumented in this encounter Additional Health Concerns Infection Onset Date Last Indicated Resolved Time Rule Out C-difficile 07/11/2024 07/11/2024 025 11:41 PM SODA COLUMN OPERATOR documented as of this encounter Care Teams Insurance Risk Surveyor Relationship Specialty Start Date End Date Martina Strickland PA-C PCP - General Physician Social Work Lecturer 07/19/19 Ailin Decker MD Internal Medicine 07/28/11 Amadeo King MD [address] [facility] 493 [place], [place] [phone] Ophthalmology 12/22/19 Joseph Trivedi MD [facility] [address] [facility] 215 [place], [place] [address] Rheumatology 05/21/20 Rene Grant MD [address] [place] [address] [phone] Assigned Surgical Provider 09/12/22 02/28/25 Manju Perkins, JENNIFER Registered Nurse 05/24/24 Martine Rios MD [address] [place] [address] [phone] Assigned Nephrology Provider 07/02/24 Gifty Durham RN [facility], [address] Registered Nurse Transplant 10/27/24 02/27/25 Emma Deshpande MD [address] [place] [address] [phone] Ophthalmology 12/05/24 Emma Deshpande MD [address] [place] [address] [phone] Assigned Surgical Provider 03/01/25 documented as of this encounter
--- OUTSIDE RECORDS SUMMARY | 2025-03-16 17:29 | XMS_ITS | Clinical Summary ---
Author Organization [facility] Address [address] [place] [address] Care Team Providers Care Collections Technician Name Role Phone Ailin Decker MD Unavailable Martina Strickland PA-C Primary Care Provider Amadeo King MD Unavailable Joseph Trivedi MD Unavailable Manju Perkins RN Unavailable Unavaila Martine Sr MD Unavailable [phone] Emma Deshpande MD Unavailable Emma Deshpande MD Unavailable Allergies Active Allergy Reactions Criticality Noted Date Comments Lidocaine Other (See Comments) 07/22/2011 can Other reaction(s): Get the shakes Medications metFORMIN (GLUCOPHAGE-XR) 500 MG 24 hr tablet Take 1,000 mg by mouth 2 times daily Active levothyroxine (SYNTHROID/LEVOTH ROID) 125 MCG tablet Take 125 mcg by mouth daily Active tacrolimus (PROTOPIC) 0.1 % external ointmentIndicatio ns:Post corneal transplant Apply topically daily. 30 g 4 4 Active sodium bicarbonate 650 MG tabletIndications :Metabolic acidosis Take 2 tablets (1,300 mg) by mouth 2 times daily. 120 tablet 5 5 Active prednisoLONE acetate (PRED FORTE) 1 % ophthalmic suspensionIndicat ions:Corneal transplant rejection, right eye Place 1-2 drops into the right eye 6 times daily. 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 5 mL 2 5 Active cycloSPORINE (RESTASIS) 0.05 % ophthalmic emulsionIndicatio ns:Chronically dry eyes, right Place 1 drop into both eyes 2 times daily. 60 each 5 Active furosemide (LASIX) 20 MG tabletIndications :Immunosuppressio n,Leg swelling Take 1 tablet (20 mg) by mouth 2 times daily. 60 tablet 5 Active mycophenolic acid (GENERIC EQUIVALENT) 180 MG EC tabletIndications :Limbal stem cell deficiency,Immuno suppressed status Take 4 tablets (720 mg) by mouth 2 times daily. 240 tablet 5 Active tacrolimus (GENERIC EQUIVALENT) 0.5 MG capsuleIndication s:Immunosuppressi on,Pseudophakia of right eye,Need for pneumocystis prophylaxis Take 1 capsule (0.5 mg) by mouth every morning. Total dose = 1.5mg AM, 1mg PM 30 capsule 11 5 Active tacrolimus (GENERIC EQUIVALENT) 1 MG capsuleIndication s:Immunosuppresse d status,Fungal infection Take 1 capsule (1 mg) by mouth 2 times daily. 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 Pseudophakia of right eye 09/28/2018 CARDIOVASCULAR SCREENING; LDL GOAL LESS THAN 160 07/28/2011 Hypothyroidism 07/28/2011 Encounters Date Type Department Care Team Description 02/28/2025 7:30 AM CDT Lab [facility] [address] [place] [address] Immunosuppressed status; Limbal stem cell deficiency 02/28/2025 MyC Medical Advice Initial Department Formerly [facility] [place] [address] Manju Perkins RN 02/27/2025 Travel 02/13/2025 3:00 PM CDT Office Visit [facility] [address] [facility] [address] [place] [phone] Emma Deshpande MD Epiretinal membrane (ERM) of right eye 02/13/2025 Travel 02/12/2025 Travel 02/09/2025 Orders Only [facility] [address] [place] [address] [phone] Manju Perkins RN Immunosuppression; Pseudophakia of right eye; Need for pneumocystis prophylaxis; Immunosuppressed status; Fungal infection 02/09/2025 Orders Only [facility] [address] [place] [phone] Juan Diego Jacobo MD Limbal stem cell deficiency (Primary Dx) 02/09/2025 Results Follow-Up [facility] [address] [phone] Christelle Omalley RN Subj: Message about your results 02/08/2025 5:15 PM CDT Lab [facility] [address] [place] [phone] Immunosuppressed status; Limbal stem cell deficiency 02/08/2025 Travel 02/07/2025 MyC Medical Advice [facility] [address] [place] [phone] Robles Elizalde 02/06/2025 Telephone [facility] [address] 9[facility] [address] [place] [phone] Amadeo King MD Prior Authorization (latanoprost (XALATAN) 0.005 % ophthalmic solution //) 02/06/2025 Orders Only [facility] [address] [place] [phone] Manju Perkins, RN Limbal stem cell deficiency; Immunosuppressed status 02/05/2025 Orders Only [facility] [address] [place] [phone] Manju Perkins RN Immunosuppressed status (Primary Dx); Limbal stem cell deficiency 02/05/2025 Results Follow-Up [facility] [address] [place] [phone] Manju Perkins RN Subj: Message about your results 02/02/2025 5:25 PM CDT Lab [facility] [address] [place] [phone] Immunosuppressed status 02/02/2025 Travel 01/30/2025 MyC Medical Advice Initial Department [address] [place] [phone] Manju Perkins RN 01/24/2025 Telephone [facility] [address] [phone] Manju Perkins, JENNIFER Refill Request 01/22/2025 Orders Only [facility] [address] [place] [phone] Manju Perkins, JENNIFER Immunosuppression; Pseudophakia of right eye; Need for pneumocystis prophylaxis; Immunosuppressed status; Fungal infection 01/19/2025 Results Follow-Up [facility] [address] [place] [phone] Manju Perkins, RN Dx: Immunosuppressed status (Primary Dx) 01/19/2025 Orders Only [facility] [address] [place] [phone] Manju Perkins, JENNIFER Immunosuppressed status (Primary Dx) 01/18/2025 4:40 PM CDT Lab [facility] [address] [place] [phone] Limbal stem cell deficiency, unspecified laterality; Immunosuppressed status; meterman use of drug; Other specified postprocedural states 01/18/2025 MyC Medical Advice Initial Department [address] [place] [phone] Manju Perkins RN 01/18/2025 Travel 01/12/2025 Results Follow-Up [facility] [address] [place] [phone] Manju Perkins RN Subj: Message about your results 01/11/2025 3:55 PM CDT Lab [facility] [address] [place] [phone] Limbal stem cell deficiency, unspecified laterality; Immunosuppressed status; MCFP use of drug; Other specified postprocedural states 01/11/2025 Travel 01/01/2025 Refill [facility] [address] [place] [phone] Manju Perkins, JENNIFER Refill Request 12/29/2024 Results Follow-Up [facility] [address] [place] [phone] Manju Perkins, JENNIFER Subj: Message about your results 12/28/2024 5:15 PM CDT Lab [facility] [address] [place] [phone] Limbal stem cell deficiency, unspecified laterality; Immunosuppressed status; MCFP use of drug; Other specified postprocedural states 12/28/2024 Travel 12/22/2024 MyC Medical Advice [facility] [address] [place] [phone] Manju Perkins RN 12/22/2024 Results Follow-Up [facility] [address] [place] [phone] Manju Perkins RN Subj: Message about your results 12/21/2024 4:20 PM CDT Lab [facility] [address] [place] [phone] Limbal stem cell deficiency, unspecified laterality; Immunosuppressed status; MCFP use of drug; Other specified postprocedural states 12/21/2024 Travel 12/20/2024 MyC Refill [facility] [address] [place] [phone] Martine Rios MD Refill Request 12/18/2024 2:45 PM CDT Office Visit [facility] [address] [place] [phone] Amadeo King MD Corneal transplant rejection, right eye; 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; Post corneal transplant; Chronically dry eyes, right 12/18/2024 Orders Only [facility] [address] [place] [phone] Manju Perkins RN Limbal stem cell deficiency, unspecified laterality (Primary Dx); Immunosuppressed status; MCFP use of drug; Other specified postprocedural states 12/18/2024 Travel 12/18/2024 Results Follow-Up [facility] [address] [place] [phone] Manju Perkins RN Subj: Message about your results 12/15/2024 2:50 PM CDT Lab [facility] [address] [place] [phone] Limbal stem cell deficiency, unspecified laterality; Immunosuppressed status; meterman use of drug; Other specified postprocedural states 12/15/2024 Travel 12/14/2024 MyC Medical Advice Initial Department [address] [place] [phone] Manju Perkins RN from Last 3 Months Family History Medical [...] AM CDT 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:59 AM WASTEWATER ANALYST Gender Identity Female 2019 10:10 AM CDT Sexual Orientation Straight 2019 10 :10 AM CDT Last Filed Vital Signs Vital Sign Reading Time Taken Comments Blood Pressure 133/65 09/29/2024 4:09 PM CDT Pulse 96 09/29/2024 4:09 PM CDT Temperature 36.6 C (97.9 F) 08/03/2024 3:37 PM CDT Respiratory Rate 16 07/04/2024 4:10 PM WASTEWATER ANALYST Oxygen Saturation 99% 08/03/2024 3:37 PM CDT Inhaled Oxygen Concentration - - Weight 108.1 kg (238 lb 4.8 oz) 09/29/2024 4:09 PM CDT Height 160 cm (5' 3) 09/29/2024 4:09 PM CDT Body Mass Index 42.21 09/29/2024 4:09 PM CDT Plan of Treatment Upcoming Encounters Date Type Department Care Team (Late st Contact Info) Description 03/19/2025 3:00 PM WASTEWATER ANALYST Office Visit [facility] [address] [facility] [address] [place] [phone] Amadeo King MD [address] [facility] [address] [place] [address] 03/29/2025 7:45 AM WASTEWATER ANALYST Lab [facility] [address] [place] [phone] 05/15/2025 3:00 PM WASTEWATER ANALYST Office Visit [facility] [address] Clin [address] [place] [phone] Emma Deshpande MD [address] [facility] [address] [place] [address] Health Maintenance Due Date Last Done Comments ADVANCE CARE PLANNING 1965 ANNUAL REVIEW OF HM ORDERS 1965 CT COLONOGRAPHY 1965 FIT 1965 FLEX SIG 1965 MAMMO SCREENING 1965 sDNA (Cologuard) 1965 YEARLY PREVENTIVE VISIT 1968 COLONOSCOPY 07/22/1975 COLORECTAL CANCER SCREENING 07/22/1975 HEPATITIS B VACCINE (1 of 3 - 19+ 3-dose series) 1984 ZOSTER VACCINE (1 of 2) 1984 TSH W/FREE T4 REFLEX 2012 07/22/2011 PAP 11/09/2023 11/08/2020, 11/08/2020 COVID-19 VACCINE ( season) 2025 05/10/2024, 03/06/2023, 05/01/2021, Additional history exists INFLUENZA VACCINE (#1) 2025 , 02/10/2023, 02/09/2022, Additional history exists DTAP/TDAP/TD VACCINE (2 - Td or Tdap) 11/27/2027 11/26/2017, 06/17/2007 DIABETES SCREENING 02/29/2028 02/28/2025, 1 , 02/02/2025, Additional history exists LIPID 10/04/2029 10/04/2024, 05/26/2024 HEPATITIS C SCREENING Completed 05/26/2024 HIV SCREENING Completed 05/26/2024 PHQ-2 (once per calendar year) Completed 08/30/2024, 07/17/2024, 06/07/2024, Additional history exists PNEUMOCOCCAL VACCINE 50+ YEARS Completed 01/11/2025 HPV VACCINE (No Doses Required) Completed MENINGITIS VACCINE Aged Out No longer eligible based on patient's age to complete this topic Medical Devices Implanted Type Area Core Maker Device Identifier Shelf Expiration Date Model / Serial / Lot Amniograft Anniotic Graft [id number] Implanted:Qty: 1 on 07/04/2024 by Amadeo King MD at [facility] Graft Right: Eye BIO-TISSUE 02/06/2026 [id number] / [id number] / Cornea Implanted:Qty: 1 on 07/04/2024 by Amadeo King MD at [facility] Right: Eye 07/12/2024 / -[id number] OD-C / Cornea Implanted:Qty: 1 on 07/04/2024 by Amadeo King MD at [facility] Right: Eye 07/12/2024 / -[id number] OS-C / Procedures Procedure Name Priority Date/Time Associated Diagnosis Comments TACROLIMUS BY TANDEM MASS SPECTROMETRY Routine 02/28/2025 7:33 AM CDT Limbal stem cell deficiency BASIC METABOLIC PANEL Routine 02/28/2025 7:33 AM CDT Immunosuppressed status CBC WITH PLATELETS Routine 02/28/2025 7: 33 AM CDT Immunosuppressed status ULTRASOUND B-SCAN OD (RIGHT EYE) Routine 02/13/2025 4:29 PM CDT Epiretinal membrane (ERM) of right eye FUNDUS PHOTOS OU (BOTH EYES) Routine 02/13/2025 4:29 PM CDT Epiretinal membrane (ERM) of right eye OCT RETINA SPECTRALIS OU (BOTH EYE) Routine 02/13/2025 3:59 PM CDT Epiretinal membrane (ERM) of right eye CBC WITH PLATELETS Routine 02/08/2025 5: 21 PM CDT Immunosuppressed status Limbal stem cell deficiency TACROLIMUS BY TANDEM MASS SPECTROMETRY Routine 02/08/2025 5:21 PM CDT Immunosuppressed status Limbal stem cell deficiency BASIC METABOLIC PANEL Routine 02/08/2025 5:21 PM CDT Immunosuppressed status Limbal stem cell deficiency TACROLIMUS BY TANDEM MASS SPECTROMETRY Routine 02/02/2025 5:27 PM CDT Immunosuppressed status CBC WITH PLATELETS Routine 02/02/2025 5: 27 PM CDT Immunosuppressed status BASIC METABOLIC PANEL Routine 02/02/2025 5:27 PM CDT Immunosuppressed status CBC WITH PLATELETS & DIFFERENTIAL Routine 01/18/2025 5:30 PM CDT Limbal stem cell deficiency, unspecified laterality Immunosuppressed status meterman use of drug Other specified postprocedural states TACROLIMUS BY TANDEM MASS SPECTROMETRY Add-On 01/18/2025 5:30 PM CDT Immunosuppressed status CBC WITH PLATELETS AND DIFFERENTIAL Routine 01/18/2025 5:30 PM CDT Limbal stem cell deficiency, unspecified laterality Immunosuppressed status meterman use of drug Other specified postprocedural states BASIC METABOLIC PANEL Routine 01/18/2025 5:30 PM CDT Limbal stem cell deficiency, unspecified laterality Immunosuppressed status MCFP use of drug Other specified postprocedural states CBC WITH PLATELETS & DIFFERENTIAL Routine 01/11/2025 5:26 PM CDT Limbal stem cell deficiency, unspecified laterality Immunosuppressed status MCFP use of drug Other specified postprocedural states CBC WITH PLATELETS AND DIFFERENTIAL Routine 01/11/2025 5:26 PM CDT Limbal stem cell deficiency, unspecified laterality Immunosuppressed status MCFP use of drug Other specified postprocedural states TACROLIMUS BY TANDEM MASS SPECTROMETRY Add-On 01/11/2025 5:26 PM CDT Limbal stem cell deficiency, unspecified laterality Immunosuppressed status meterman use of drug Other specified postprocedural states BASIC METABOLIC PANEL Routine 01/11/2025 5:26 PM CDT Limbal stem cell deficiency, unspecified laterality Immunosuppressed status meterman use of drug Other specified postprocedural states CBC WITH PLATELETS & DIFFERENTIAL Routine 12/28/2024 5:29 PM CDT Limbal stem cell deficiency, unspecified laterality Immunosuppressed status MCFP use of drug Other specified postprocedural states CBC WITH PLATELETS AND DIFFERENTIAL Routine 12/28/2024 5:29 PM CDT Limbal stem cell deficiency, unspecified laterality Immunosuppressed status MCFP use of drug Other specified postprocedural states TACROLIMUS BY TANDEM MASS SPECTROMETRY Add-On 12/28/2024 5:29 PM CDT Limbal stem cell deficiency, unspecified laterality Immunosuppressed status meterman use of drug Other specified postprocedural states BASIC METABOLIC PANEL Routine 12/28/2024 5:29 PM CDT Limbal stem cell deficiency, unspecified laterality Immunosuppressed status MCFP use of drug Other specified postprocedural states CBC WITH PLATELETS & DIFFERENTIAL Routine 12/21/2024 5:32 PM CDT Limbal stem cell deficiency, unspecified laterality Immunosuppressed status meterman use of drug Other specified postprocedural states CBC WITH PLATELETS AND DIFFERENTIAL Routine 12/21/2024 5:32 PM CDT Limbal stem cell deficiency, unspecified laterality Immunosuppressed status MCFP use of drug Other specified postprocedural states TACROLIMUS BY TANDEM MASS SPECTROMETRY Add-On 12/21/2024 5:32 PM CDT Limbal stem cell deficiency, unspecified laterality Immunosuppressed status MCFP use of drug Other specified postprocedural states BASIC METABOLIC PANEL Routine 12/21/2024 5:32 PM CDT Limbal stem cell deficiency, unspecified laterality Immunosuppressed status meterman use of drug Other specified postprocedural states CBC WITH PLATELETS & DIFFERENTIAL Routine 12/15/2024 5:27 PM CDT Limbal stem cell deficiency, unspecified laterality Immunosuppressed status MCFP use of drug Other specified postprocedural states TACROLIMUS BY TANDEM MASS SPECTROMETRY Add-On 12/15/2024 5:27 PM CDT Limbal stem cell deficiency, unspecified laterality Immunosuppressed status MCFP use of drug Other specified postprocedural states CBC WITH PLATELETS AND DIFFERENTIAL Routine 12/15/2024 5:27 PM CDT Limbal stem cell deficiency, unspecified laterality Immunosuppressed status meterman use of drug Other specified postprocedural states BASIC METABOLIC PANEL Routine 12/15/2024 5:27 PM CDT Limbal stem cell deficiency, unspecified laterality Immunosuppressed status meterman use of drug Other specified postprocedural states LIPID PROFILE Routine 10/04/2024 4:57 PM CDT 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, unspecified laterality MCFP use of drug Other specified postprocedural states HIV ANTIGEN ANTIBODY COMBO PRETRANSPLANT Routine 05/26/2024 5:04 PM WASTEWATER ANALYST Limbal stem cell deficiency Immunosuppressed status HEPATITIS C ANTIBODY Routine 05/26/2024 5:04 PM WASTEWATER ANALYST Limbal stem cell deficiency Immunosuppressed status TSH STAT 07/22/2011 8:00 AM CDT from Last 3 Months or Most Recently Relevant to Health Maintenance Results * Tacrolimus by Tandem Mass Spectrometry (02/28/2025 7:33 AM CDT) Only the most recent of8 resultswithin the time period is included. Tacrolimus by Tandem Mass Spectrometry 5.6 5.0 [...] its performance characteristics determined by the [facility]. It has not been cleared or approved by the FDA. The laboratory is regulated under CLIA as qualified to perform high-complexity testing. This test is used for clinical purposes. It should not be regarded as investigational or for research. Martine Rios MD LAB - BLOOD ORDERABLES Final Result [facility] [address] [facility], [address] [place] [address] * (ABNORMAL) Basic metabolic panel (02/28/2025 7:33 AM CDT) Only the most recent of8 resultswithin the time period is included. Sodium 140 135 - 145 mmol/L 02/28/2025 [...] 6:07 PM CDT [facility] Comment:eGFR calculated usin 2020 CKD-EPI equation. Calcium 9.6 8.8 - 10.4 mg/dL 02/28/2025 6:07 PM CDT [facility] Glucose 114(H) 70 - 99 mg/dL 02/28/2025 6:07 PM CDT [facility] Blood BLOOD SPECIMEN / Unknown Venipuncture / Unknown 02/28/2025 7:33 AM CDT 02/28/2025 7:34 AM CDT us Martine Rios MD LAB - BLOOD ORDERABLES Final Result [facility] [address] [facility], [address] [place] [address] * CBC with platelets (02/28/2025 7:33 AM CDT) Only the most recent of3 resultswithin the time period is included. WBC Count 5.18 4.00 - 11.00 10e3/uL 02/28/2025 7:36 AM CDT LABORATORY RBC Count 4.38 3.80 - 5.20 10e6/uL 02/28/2025 7:36 AM CDT LABORATORY Hemoglobin 13.4 11.7 - 15.7 g/dL 02/28/2025 7:36 AM CDT LABORATORY Hematocrit 39.3 35.0 - 47.0 % [...] - 450 10e3/uL 02/28/2025 7:36 AM CDT LABORATORY Blood BLOOD SPECIMEN / Unknown Venipuncture / Unknown 02/28/2025 7:33 AM CDT 02/28/2025 7:34 AM CDT Martine Rios MD LAB - BLOOD ORDERABLES Final Result LABORATORY [facility] [address] [facility] (no room number, 1st floor of clinic) [place] [address], [facility] * Ultrasound B-scan OD (right eye) (02/13/2025 4:29 PM CDT) Emma Lozoya MD [...] Emma Deshpande MD OPHTHALMOLOGY Final Result * CBC with platelets and differential (01/18/2025 5:30 PM CDT) Only the most recent of5 resultswithin the time period is included. WBC Count 5.58 4.00 - 11.00 10e3/uL 01/18/2025 5:33 PM CDT [facility] RBC Count 4.37 3.80 - 5.20 10e6/uL 01/18/2025 5:33 PM CDT [facility] Hemoglobin 13.1 11.7 - 15.7 g/dL 01/18/2025 5:33 PM CDT [facility] Hematocrit 39.6 35.0 - 47.0 % 01/18/2025 5:33 PM CDT [facility] MCV 90.6 78.0 - 100.0 fL 01/18/2025 5:33 PM CDT [facility] MCH 30.0 26.5 - 33.0 pg 01/18/2025 5:33 PM CDT [facility] MCHC 33.1 31.5 - 36.5 g/dL 01/18/2025 5:33 PM CDT [facility] RDW 12.4 10.0 - 15.0 % 01/18/2025 5:33 PM CDT [facility] Platelet Count 203 150 - 450 10e3/uL 01/18/2025 5:33 PM CDT [facility] % Neutrophils 57.1 % 01/18/2025 5:33 PM CDT [facility] % Lymphocytes 34.6 % 01/18/2025 5:33 PM CDT [facility] % Monocytes 4.8 % 01/18/2025 5:33 PM CDT [facility] % Eosinophils 2.0 % 01/18/2025 5:33 PM CDT [facility] % Basophils 1.1 % 01/18/2025 5:33 PM CDT [facility] % Immature Granulocytes 0.4 % 01/18/2025 5:33 PM CDT [facility] NRBCs per 100 WBC 0.0 <1.0 /100 025 5:33 PM CDT [facility] Absolute Neutrophils 3.19 1.60 - 8.30 10e3/uL 01/18/2025 5:33 PM CDT [facility] Absolute Lymphocytes 1.93 0.80 - 5.30 10e3/uL 01/18/2025 5:33 PM CDT [facility] Absolute Monocytes 0.27 0.00 - 1.30 10e3/uL 01/18/2025 5:33 PM CDT [facility] Absolute Eosinophils 0.11 0.00 - 0.70 10e3/uL 01/18/2025 5:33 PM CDT [facility] Absolute Basophils 0.06 0.00 - 0.20 10e3/uL 01/18/2025 5:33 PM CDT [facility] Absolute Immature Granulocytes <0.03 <=0.40 10e3/uL 01/18/2025 5:33 PM CDT [facility] Absolute NRBCs <0.03 10e3/uL 01/18/2025 5:33 PM CDT [facility] Blood STRUCTURE OF RIGHT UPPER LIMB / Unknown Venipuncture / Unknown 01/18/2025 5:30 PM CDT 01/18/2025 5:30 PM CDT us Martine Rios MD LAB - BLOOD ORDERABLES Final Result [facility] [address] Lab (1st floor, no room number) [place] [address] * (ABNORMAL) Lipid Profile (10/04/2024 4:57 PM CDT) Cholesterol 201(H) <200 mg/dL 10/04/2024 8:58 PM CDT [facility] Triglycerides 300(H) <150 mg/dL 10/04/2024 8:58 PM CDT [facility] Direct Measure HDL 43(L) >=50 mg/dL 10/04/2024 8:58 PM CDT [facility] LDL Cholesterol Calculated 98 <100 mg/dL 10/04/2024 8:58 PM CDT [facility] Non HDL Cholesterol 158(H) <130 mg/dL 10/04/2024 8:58 PM CDT [facility] Patient Fasting > 8hrs? No 10/04/2024 8:58 PM CDT [facility] Blood BLOOD SPECIMEN / Unknown Venipuncture / Unknown 10/04/2024 4:57 PM CDT 10/04/2024 5:34 PM CDT Narrative [facility] - 10/04/2024 8:58 PM CDT Cholesterol Desirable: < 200 mg/dL Borderline High: [...] LAB - BLOOD ORDERABLES Final Result LABORATORY [facility] [address] [facility], [address] [phone] [address] Lab (1st floor, no room number) [place] [address] * HIV Antigen Antibody Combo Pretransplant [place] (05/26/2024 5:04 PM WASTEWATER ANALYST) [facility] HIV Antigen Antibody Combo Pretransplant Nonreactive Nonreactive 05/27/2024 10:48 AM WASTEWATER ANALYST [facility] Comment:Negative HIV-1 p24 a ntigen and [...] Unknown Venipuncture / Unknown 05/26/2024 5:04 PM WASTEWATER ANALYST 05/26/2024 5:07 PM WASTEWATER ANALYST Martine Rios MD LAB - BLOOD ORDERABLES Final Result LABORATORY [facility] [address] [facility], [address] [phone] * Hepatitis C antibody (05/26/2024 5:04 PM WASTEWATER ANALYST) Hepatitis C Antibody Nonreactive Nonreactive 05/27/2024 10:34 AM WASTEWATER ANALYST [facility] Comment:A nonreactive screen ing test result [...] Unknown Venipuncture / Unknown 05/26/2024 5:04 PM WASTEWATER ANALYST 05/26/2024 5:07 PM WASTEWATER ANALYST us Martine Rios MD LAB - BLOOD ORDERABLES Final Result LABORATORY [facility] [place] [facility], Room [address] [phone] * (ABNORMAL) TSH (07/22/2011 8:00 AM CDT) TSH 14.50(H) 0.4 - 5.0 mU/L [facility] Blood specimen (specimen) 07/22/2011 8:00 AM CDT 07/22/2011 8:14 AM CDT us Yesenia Gomez MD LAB - BLOOD ORDERABLE S Final Result [facility] [address] [place] [address], [facility] [phone] from Last 3 Months or Most Recently Relevant to Health Maintenance Insurance BC OUT OF STATE BCBS OUT OF STATE Care Teams Collections Technician Relationship Specialty Start Date End Date Martina Strickland PA-C PCP - General Physician Switch Operator 07/19/19 Ailin Decker MD Internal Medicine 07/28/11 Amadeo King MD [address] [facility] [address] [place], [place] [phone] Ophthalmology 12/22/19 Joseph Trivedi MD [facility] [address] [facility] [address] [place], [place] [phone] Rheumatology 05/21/20 Manju Perkins, JENNIFER Registered Nurse 05/24/24 Martine Rios MD [address] [place] [address] [phone] Assigned Nephrology Provider 07/02/24 Emma Deshpande MD [address] [place] [address] Ophthalmology 12/05/24 Emma Deshpande MD [address] [place] [address] [phone] Assigned Surgical Provider 03/01/25
--- OUTSIDE RECORDS SUMMARY | 2025-03-16 17:30 | XMS_ITS | Encounter Summary ---
Author Organization [facility] Address [address] [place] [address] Care Team Providers Care Pigeon Fancier Name Role Phone Ailin Decker MD Unavailable Martina Strickland PA-C Primary Care Provider Amadeo King MD Unavailable [phone] Amadeo King MD Unavailable [phone] Joseph Trivedi MD Unavailable [phone] Claudia Marcus MD Unavailable [phone] Kishan Spain OD Unavailable [phone] Emma Deshpande MD Unavailable [phone] Kishan Spain OD Unavailable [phone] Emma Deshpande MD Unavailable [phone] Rene Grant MD Unavailable [phone] Amadeo Winston MD Unavailable [phone] Amadeo Winston MD Unavailable [phone] Rene Grant MD Unavailable [phone] Rene Grant MD Unavailable [phone] Manju Perkins RN Unavailable Unavaila Martine Sr MD Unavailable [phone] Gifty Durham RN Unavailable Unavailable Emma Deshpande MD Unavailable + [phone] Emma Deshpande MD Unavailable + [phone] Reason for Visit * Reason Onset Date Comments Refill Request 08/28/2020 mycophenolate (G ENERIC EQUIVALENT) 250 MG capsule and mycophenalate 500 mg Encounter Details Date Type Department Care Team (Late st Contact Info) Description 08/28/[address] [facility] Eye [facility] [address] [facility] Emergency Department 9th Mo Clin [address] [place] [phone] Amadeo King MD [address] [address] Refill Request (mycophenolate (GENERIC EQUIVALENT) 250 MG [...] AM CDT 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:59 AM LEASING AGENT Gender Identity Female 2019 10:10 AM CDT Sexual Orientation Straight 2019 10 :10 AM CDT COVID-19 Exposure Response Date Recorded In the last month, have you been in contact with someone who was confirmed or suspected to have Coronavirus / COVID-19? No / Unsure 08/05/2020 2:49 PM CDT documented as of this encounter Miscellaneous Notes * Telephone Encounter - Jessica Brunette RN - 08/28/2020 3:24 PM CDT mycophenolate [...] Stacey Ventura - 08/28/2020 12:48 PM CDT [facility] Phone Message May a detailed message be left on voicemail: yes Reason for Call: Medication Refill Request Has the patient contacted the pharmacy for the refill? Yes Name of medication being requested: mycophenolate (GENERIC EQUIVALENT) 250 MG capsule and mycophenalate 500 mg Provider who prescribed the medication: Dr. King Pharmacy: [id number] [place], [place] - [address] AT [facility] [address] Date medication is needed: now-pt has 1 left. Spouse didn't tell her she was almost out. Thanks Action Taken: Message routed to: [facility] eye gen Travel Screening: Not Applicable documented in this encounter Plan of Treatment Upcoming Encounters Date Type Department Care Team (Late st Contact Info) Description 03/19/2025 3:00 PM LEASING AGENT Office Visit [facility] Eye [facility] [address] [facility] Emergency Department 9th Fl Clin [address] [place] [address] Amadeo King MD [address] [address] 03/29/2025 7:45 AM LEASING AGENT Lab [facility] [id number] [place] [phone] 05/15/2025 3:00 PM LEASING AGENT Office Visit [facility] [address] [facility] Emergency Department 9th Fl Clin [address] [place] [phone] Emma Deshpande MD [address] [facility] [address] [place] [address] documented as of this encounter Visit Diagnoses Diagnosis 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 documented in this encounter Additional Health Concerns Infection Onset Date Last Indicated Resolved Time Rule Out C-difficile 07/11/2024 07/11/2024 025 11:41 PM LEASING AGENT documented as of this encounter Care Teams Pigeon Fancier Relationship Specialty Start Date End Date Martina Strickland PA-C PCP - General Physician Enterprise Business Architect 07/19/19 Ailin Decker MD Internal Medicine 07/28/11 Amadeo King MD [address] [place] [address] Ophthalmology 12/22/19 Amadeo King MD [address] [place] [address] Assigned PCP 04/07/20 06/02/23 Joseph Trivedi MD [facility] [address] [facility] [address] [phone] Rheumatology 05/21/20 Claudia Marcus MD [facility] [address] [phone] Assigned Surgical Provider 06/30/20 10/19/20 Kishan Spain, OD [address] [place] [phone] Assigned Surgical Provider 10/20/20 11/23/20 Emma Deshpande MD [address] [place] [address] Assigned Surgical Provider 11/24/20 12/07/20 Kishan Spain, OD [address] [place] [phone] Assigned Surgical Provider 12/08/20 03/27/22 Emma Deshpande MD [address] [place] [address] Assigned Surgical Provider 03/28/22 04/03/22 Rene Grant MD [address] [place] [address] Assigned Surgical Provider 04/04/22 08/21/22 Amadeo Winston MD [address] [place] [address] Assigned Surgical Provider 08/22/22 08/28/22 Amadeo Winston MD [address] [place] [address] Assigned Surgical Provider 09/05/22 09/11/22 Rene Grant MD [address] [place] [address] Assigned Surgical Provider 08/29/22 09/04/22 Rene Grant MD [address] [place] [address] [phone] Assigned Surgical Provider 09/12/22 02/28/25 Manju Perkins, JENNIFER Registered Nurse 05/24/24 Martine Rios MD [address] [place] [address] [phone] Assigned Nephrology Provider 07/02/24 Gifty Durham RN [facility], [id number] Registered Nurse Transplant 10/27/24 02/27/25 Emma Deshpande MD [address] [place] [address] MD [place] 12/05/24 Emma Deshpande MD [address] [place] [address] Assigned Surgical Provider 03/01/25 documented as of this encounter
[2025-03-16 17:38] VITALS: BP 149/68; PULSE 99; RESP 18; TEMP 36; O2SAT 97
--- NOTE | 2025-03-16 17:48 | ED.GENADULT ---
HPI - General Adult General Date Seen: 03/16/25 Chief complaint: Head Injury/Pain Stated complaint: bumped head last Wednesday/ dizziness since Time Seen by Provider: 03/16/25 17:33 History of Present Illness HPI narrative: Patient is a 59-year-old woman, history of chronic back pain, prediabetes, hypothyroid, GERD, pterygium of the right eye and follows [facility], status post corneal transplant, migraines and tension headaches, as well as vertigo. She is here with her for evaluation of a headache and dizziness following minor head injury about a week ago. She was standing up quickly and hit her head on a shelf. Loss of consciousness. Says today is the 1st day that her was able to bring her in, which is why she has waited this long. She does have a history of vertigo, but had not been having trouble until she hit her head and now she is having a lot of spinning and when she moves her head too fast she feels off balance. She has also noted a headache which has been persistent since hitting her head, she does think that that is finally starting to feel better today. She has been given Zofran in the past for her dizziness but says her prescription was long . She has not tried anything else at home. No other neurologic complaints. Related Data Home Medications ?Medication ?Instructions ?Recorded ?Confirmed prednisolone acetate 1 % eye 1 drp ophthalmic (eye) QID 12/24/21 01/11/25 drops,suspension gabapentin 300 mg capsule 300 mg PO QDAY 06/26/22 01/11/25 latanoprost 0.005 % eye drops 1 drp ophthalmic (eye) BID 07/27/22 01/11/25 mycophenolate mofetil 500 mg tablet 500 mg PO BID 07/27/22 01/11/25 tacrolimus 0.1 % topical ointment 1 applic topical QHS 07/27/22 01/11/25 ofloxacin 0.3 % eye drops 1 - 2 drp ophthalmic (eye) BID 04/18/24 01/11/25 furosemide 20 mg tablet 20 mg PO QAM 01/11/25 01/11/25 Previous Rx's ?Medication ?Instructions ?Recorded levothyroxine 125 mcg tablet 125 mcg PO DAILY #90 tabs 01/12/25 metformin 500 mg tablet,extended 2,000 mg (4 x 500 mg) PO DAILY 90 01/12/25 release 24 hr days #360 tabs lorazepam 0.5 mg tablet 0.5 mg PO BID PRN #7 tabs 03/16/25 ondansetron 4 mg disintegrating 4 mg PO Q8H PRN nausea and 03/16/25 tablet vomiting #7 tabs Allergies Allergy/AdvReac Type Severity Reaction Status Date / Time No Known Drug Allergies Allergy Verified 03/16/25 17:38 Review of Systems Status of ROS: Reports: 6 or more systems reviewed and unremarkable except as noted in History and below [facility] Medical History Irregular menstrual bleeding ?N92.6 - Irregular menstruation, unspecified (ICD-10) Recurrent UTI (urinary tract infection) ?N39.0 - Urinary tract infection, site not specified (ICD-10) UTI (urinary tract infection) (~12/2021) ?N39.0 - Urinary tract infection, site not specified (ICD-10) Gallstones ?K80.20 - Calculus of gallbladder without cholecystitis without obstruction (ICD-10) Vertigo ?R42 - Dizziness and giddiness (ICD-10) Cellulitis (~03/2022) ?L03.90 - Cellulitis, unspecified (ICD-10) Surgical History History of cornea transplant ?Z94.7 - Corneal transplant status (ICD-10) Family History Mother Arthritis Maternal Grandmother Colon cancer Family/Other Coronary artery disease Social History Narrative: Non-smoker. with adult children. Rare alcohol use. Denies recreational drug use. Employed for the [employer]- working with the [employer] program. What is your current living situation?: I presently have a place to live Problems where you live: no known problems In the past 12 months, utilities in danger of being shut off: no In past 12 months, lack of transportation kept you from medical appts, meetings, work, or getting things needed for daily living: no In the past 12 mos, have been you worried that your food would run out before you had money to buy more?: never true In the past 12 mos, the food you bought just didn't last and you didn't have money to buy more?: never true Smoking Status: Never smoker Do you use any of these nicotine containing products: None Second hand tobacco smoke exposure: No How often do you have a drink containing alcohol: never How often do you have six or more drinks on one occasion: Never AUDIT-C Alcohol total score: 0 Non-prescribed substance use: denies use How often does anyone, including family, friends and others, physically hurt you: never How often does anyone, including family, friends and others, insult or talk down to you: never How often does anyone, including family, friends and others, threaten you with harm: never How often does anyone, including family, friends and others, scream or curse at you: never service: No Exam Narrative: Exam Narrative: Vital signs reviewed In general, alert, nontoxic woman. Looks comfortable. Head: Normocephalic, atraumatic. Eyes: Changes related to corneal transplant and the right eye. Left pupil is midpoint and reactive. Extraocular movements are full. ENT: Mucous membranes moist. Neck: Supple without adenopathy. Heart: Regular rate and rhythm without murmur. Lungs: Clear. No increased work of breathing, crackles or wheezes. Abdomen: Soft, nontender to palpation. Extremities: Well perfused, pulses intact. No significant edema. Neurologic: Alert, conversant. Speech fluent, face symmetric. Moves all extremities equally. Skin: Warm, dry well perfused. Affect: Normal. Const: Vital Signs, click to edit/add: Vital Signs - 24 hr 03/16/25 17:38 Temperature 96.8 F L Pulse Rate [Pulse Oximeter] 99 Respiratory Rate 18 Blood Pressure [Ri ght Upper Arm] 149/68 H Pulse Oximetry 97 Oxygen Delivery Me thod Room Air Course Course ED Course: Overall, this is likely to be related to some post concussive symptoms, will do a CT scan to rule out a complications such as subdural hemorrhage, will give some Zofran and Ativan here to try and help with her dizziness. I do not think any lab work is needed today. I do not see any concerning signs on physical exam to suggest stroke or dissection. I reviewed her CT scan, I do not see any evidence of hemorrhage such as subdural hematoma. Radiology report is likewise negative for anything acute. I provided a few Ativan as well as Zofran for home use. She also requested a note for work saying that she can not do anything that requires sudden position changes. If not improving in the next week or so follow-up with primary care. Return any time for worsening. Vital Signs Vital signs: Initial Vital Signs Temperature 96.8 F L 03/16/25 17:38 Temperature Source Temporal Artery Scan 03/16/25 17:38 Pulse Rate 99 03/16/25 17:38 Respiratory Rate 18 03/16/25 17:38 Blood Pressure 149/68 H 03/16/25 17:38 Blood Pressure Mean 95 03/16/25 17:38 Blood Pressure Position Semi-Fowlers 03/16/25 17:38 Pulse Oximetry 97 03/16/25 17:38 Oxygen Delivery Method Room Air 03/16/25 17:38 Vital Signs Temperature 96.8 F L 03/16/25 17:38 Pulse Rate 99 03/16/25 17:38 Respiratory Rate 18 03/16/25 17:38 Blood Pressure 149/68 H 03/16/25 17:38 Pulse Oximetry 97 03/16/25 17:38 Oxygen Delivery Method Room Air 03/16/25 17:38 Temperature 96.8 F L 03/16/25 17:38 Pulse Rate 99 03/16/25 17:38 Respiratory Rate 18 03/16/25 17:38 Blood Pressure 149/68 H 03/16/25 17:38 Pulse Oximetry 97 03/16/25 17:38 Oxygen Delivery Method Room Air 03/16/25 17:38 Medications Administered Medications: Discontinued Medications Generic Name Dose Route Start Last Admin Trade Name Freq PRN Reason Stop Dose Admin Lorazepam 1 mg 03/16/25 17:47 03/16/25 18:01 Lorazepam 1 Mg Tablet PO 03/16/25 17:48 1 mg ONCE ONE Administration Ondansetron HCl 4 mg 03/16/25 17:47 03/16/25 18:01 Ondansetron Odt 4 Mg Tab PO 03/16/25 17:48 4 mg ONCE ONE Administration Medical Decision Making Imaging Data CT scan - head: Attestation: I have reviewed the pertinent imaging results. Radiologist's impression: Patient: Paula Puga MR#: [id number] : 1965 Acct:[id number] Loc: ED Service Date: 03/16/[address]: Ordering Physician: Lina Christianson M.D. Date of Service: 03/16/25 Procedure(s): CT head/brain wo con Accession Number(s): [id number] cc: Lina Christianson M.D.; Fabi CAMPUZANO~ For Patients: As a result of the Cures Act, medical imaging exams and procedure reports are released immediately into your electronic medical record. You may view this report before your referring provider. If you have questions, please contact your health care provider. INDICATION: Fall, dizziness. COMPARISON: None available. TECHNIQUE: CT of the head without IV contrast. Coronal and sagittal reconstructions. FINDINGS: Brain: No intracranial hemorrhage, abnormal extra-axial fluid collection, or evidence of acute infarct. No mass effect or midline shift. Ventricular caliber is within normal limits. Skull base and calvarium: Postoperative changes of the right globe. The visualized orbits are otherwise grossly unremarkable. The visualized paranasal sinuses and mastoid air cells are clear. No acute fracture identified. Soft tissues: Unremarkable. IMPRESSION: No acute intracranial findings. Please note that all CT scans at this facility use dose modulation, iterative reconstruction, and/or weight-based dosing when appropriate to reduce radiation dose to as low as reasonably achievable. Dictated by Estephanie Patel MD @ 03/16/2025 6:16:54 PM Discharge Plan Discharge Clinical Impression: Concussion without loss of consciousness Patient Disposition: Home, Self-Care Condition: Stable Instructions: Concussion (ED) Additional Instructions: Your CT scan today does not show any abnormalities. Your symptoms are likely related to concussion. I have given you a couple of prescriptions try and help with symptoms over the next couple of days. If you find you are not improving over the next week or so I would recommend that you see your primary doctor. Prescriptions: New ondansetron 4 mg tablet,disintegrating 4 mg PO Q8H PRN (Reason: nausea and vomiting) Qty: 7 0RF lorazepam 0.5 mg tablet 0.5 mg PO BID PRNQty: 7 0RF No Action prednisolone acetate 1 % drops,suspension 1 drp ophthalmic (eye) QID mycophenolate mofetil 500 mg tablet 500 mg PO BID tacrolimus 0.1 % ointment 1 applic topical QHS Rx Instructions: right eye latanoprost 0.005 % drops 1 drp ophthalmic (eye) BID ofloxacin 0.3 % drops 1 - 2 drp ophthalmic (eye) BID furosemide 20 mg tablet 20 mg PO QAM gabapentin 300 mg capsule 300 mg PO QDAY Patient Comments: TAKE 1 CAPSULE BY MOUTH AT BEDTIME levothyroxine 125 mcg tablet 125 mcg PO DAILY Qty: 90 3RF metformin 500 mg tablet extended release 24 hr 2,000 mg PO DAILY 90 Days Qty: 360 3RF Follow Up/Referrals: Fabi Nguyen, PASarahC [Primary Care Provider, Family Practice] Stand Alone Forms: [email or web address] Info Instructions
[2025-03-16] MEDS: ONDANSETRON ODT 4 MG TAB PO (18:01)
== END 2025-03-16 18:41 | disposition home or self-care (01) ==
PROVIDERS: Emergency Provider Emergency Medicine; PCP Physician Assistant Medical
DX: S06.0X0A Concussion without loss of consciousness, initial encounter (principal); W22.8XXA Striking against or struck by other objects, initial encounter
CPT/HCPCS: 70450; 99283; 99284; A9270